=== PATIENT | female | born 1945 | race Caucasian/White ===

== ENCOUNTER → 2018-05-18 08:43 | Outpatient (REF) | payer MEDICARE, SELFPAY | LOC: NCHCN 08:43 | PROVIDERS: Visit Provider Internal Medicine | DX: R63.4 Abnormal weight loss (principal) | CPT/HCPCS: 84443 ==

== ENCOUNTER 2019-11-08 08:48 | Outpatient (REF) | payer MEDICARE, SELFPAY ==
[2019-11-08 22:08] LABS: Anion Gap 7.2 mmol/L (3-11); BUN 16 mg/dL (7-18); CO2 31.8 mmol/L (21.0-32.0); CREATININE 0.73 mg/dL (0.55-1.02); Calcium 10.1 mg/dL (8.5-10.1); Chloride 99 mmol/L (98-107); Glucose 104 mg/dL (74-106); Potassium 4.5 mmol/L (3.5-5.1); Sodium 138 mmol/L (136-145)
== END 2019-11-08 09:08 ==
LOC: NCHCN 08:48
PROVIDERS: Visit Provider Internal Medicine
DX: I10 Essential (primary) hypertension (principal)
CPT/HCPCS: 80048

== ENCOUNTER 2019-12-05 18:47 | Outpatient (REF) | payer MEDICARE, SELFPAY ==
[2019-12-05 21:54] LABS: Anion Gap 9.2 mmol/L (3-11); BUN 35 mg/dL (7-18); CO2 28.8 mmol/L (21.0-32.0); CREATININE 0.92 mg/dL (0.55-1.02); Chloride 101 mmol/L (98-107); Estimated GFR 59.84 (mL/min/1.73m2); Glucose 109 mg/dL (74-106); Sodium 139 mmol/L (136-145)
== END 2019-12-05 19:07 ==
LOC: NCHCN 18:47
PROVIDERS: Visit Provider Internal Medicine
DX: R10.9 Unspecified abdominal pain (principal); I10 Essential (primary) hypertension
CPT/HCPCS: 80048

== ENCOUNTER 2021-10-07 03:42 | Outpatient (CLI) | payer MEDICARE, SELFPAY ==
[2021-10-07 08:20] LABS: Abs Immature Grans 0.01 10^3/uL (0.0-0.06); Absolute Basophil Count 0.05 10^3/uL (0.0-0.2); Absolute Eosinophil Count 0.19 10^3/uL (0.0-0.7); Absolute Lymphocyte Count 1.07 10^3/uL (1.2-3.4); Absolute Monocyte Count 0.64 10^3/uL (0.1-0.8); Absolute Neutrophil Count 5.42 10^3/uL (1.2-6.7); Basophils % 0.7; Eosinophils % 2.6; HCT 37.3 % (36.0-46.0); HGB 11.1 g/dL (11.2-15.7); Immature Grans % 0.1; Lymphocytes % 14.5; MCH 27.5 pg (27.0-33.0); MCHC 29.8 % (32.0-36.0); MCV 92.3 fL (80-95); MPV 11.1 fL (8.0-11.0); Monocytes % 8.7; Neutrophils % 73.4; Nucleated RBC 0 %; Platelet Count 222 10^3/uL (130-400); RBC 4.04 10^6/uL (3.93-5.22); RDW 14.8 % (11.7-14.6); RDW-SD 50.8 fL; WBC 7.38 10^3/uL (4.4-10.8)
[2021-10-07 08:43] LABS: ALT 22 U/L (14-59); AST 13 U/L (15-37); Albumin 3.7 g/dL (3.4-5.0); Alkaline Phosphatase 151 U/L (46-116); Anion Gap 2.7 mmol/L (3-11); BUN 29 mg/dL (7-18); Bilirubin, Total 0.5 mg/dL (0.2-1.0); CO2 36.3 mmol/L (21.0-32.0); CREATININE 0.9 mg/dL (0.55-1.02); Calcium 10.1 mg/dL (8.5-10.1); Chloride 101 mmol/L (98-107); FREE T4 1.06 ng/dL (0.76-1.46); Glucose 110 mg/dL (74-106); Magnesium 1.9 mg/dL (1.8-2.4); Potassium 4.5 mmol/L (3.5-5.1); Sodium 140 mmol/L (136-145); TSH 3.16 uIU/mL (0.36-3.74); Total Protein 6.5 g/dL (6.4-8.2)
== END 2021-10-07 03:43 | disposition home or self-care (01) ==
LOC: LBO 03:42
PROVIDERS: PCP Internal Medicine; Visit Provider Internal Medicine Medical Oncology
DX: Z79.899 Other long term (current) drug therapy (principal); C34.32 Malignant neoplasm of lower lobe, left bronchus or lung
CPT/HCPCS: 36415; 80053; 83735; 84439; 84443; 85025

== ENCOUNTER 2021-10-28 01:37 | Outpatient (CLI) | payer MEDICARE, MEDICAID, SELFPAY ==
[2021-10-28 08:37] LABS: Abs Immature Grans 0.03 10^3/uL (0.0-0.06); Absolute Basophil Count 0.06 10^3/uL (0.0-0.2); Absolute Eosinophil Count 0.15 10^3/uL (0.0-0.7); Absolute Lymphocyte Count 0.95 10^3/uL (1.2-3.4); Absolute Neutrophil Count 6.26 10^3/uL (1.2-6.7); Basophils % 0.7; Eosinophils % 1.8; HCT 38.1 % (36.0-46.0); HGB 11.2 g/dL (11.2-15.7); Immature Grans % 0.4; Lymphocytes % 11.7; MCH 27.6 pg (27.0-33.0); MCHC 29.4 % (32.0-36.0); MCV 93.8 fL (80-95); Monocytes % 8.6; Neutrophils % 76.8; Nucleated RBC 0 %; Platelet Count 212 10^3/uL (130-400); RBC 4.06 10^6/uL (3.93-5.22); RDW 15.2 % (11.7-14.6); RDW-SD 52.3 fL; WBC 8.15 10^3/uL (4.4-10.8)
[2021-10-28 09:17] LABS: ALT 27 U/L (14-59); AST 13 U/L (15-37); Albumin 3.7 g/dL (3.4-5.0); Alkaline Phosphatase 156 U/L (46-116); Anion Gap 6.4 mmol/L (3-11); BUN 27 mg/dL (7-18); Bilirubin, Total 0.3 mg/dL (0.2-1.0); CO2 35.6 mmol/L (21.0-32.0); CREATININE 0.9 mg/dL (0.55-1.02); Calcium 9.9 mg/dL (8.5-10.1); Chloride 99 mmol/L (98-107); FREE T4 1.01 ng/dL (0.76-1.46); Glucose 122 mg/dL (74-106); Magnesium 1.7 mg/dL (1.8-2.4); Potassium 3.9 mmol/L (3.5-5.1); Sodium 141 mmol/L (136-145); Total Protein 6.8 g/dL (6.4-8.2)
== END 2021-10-28 01:38 | disposition home or self-care (01) ==
LOC: LBO 01:37
PROVIDERS: PCP Internal Medicine; Visit Provider Internal Medicine Medical Oncology
DX: Z79.899 Other long term (current) drug therapy (principal); C34.32 Malignant neoplasm of lower lobe, left bronchus or lung
CPT/HCPCS: 36415; 80053; 83735; 84439; 85025

== ENCOUNTER 2021-10-29 00:17 | Outpatient (CLI) | payer MEDICARE, MEDICAID, SELFPAY ==
[2021-10-29] MEDS: Omnipaque 350 MG/ML 100 ML BTL IJ (13:37)
[2021-10-29] MEDS: Breeza Beverage 473 ML BTL PO (13:37)
--- NOTE | 2021-10-29 14:00 | DI.CT_ITS ---
Exam(s) CT CHEST/ABD W EXAM: CT CHEST/ABD W CLINICAL HISTORY: NON-SMALL CELL LUNG CA, LIVER METS, RESTAGING, C34.32, C78.7 TECHNIQUE: Imaging Protocol: Axial computed tomography images with coronal and sagittal reformatted images were created and reviewed CONTRAST MATERIAL: Intravenous: Omnipaque 350 Contrast volume:100 mL Oral: Yes COMPARISON: CT CT CXRABDPELVIS WITH IV AND ORAL from 08/08/2021 FINDINGS: CHEST: Tracheobronchial tree: Patent where visualized. Pulmonary parenchyma: There are stable pulmonary nodules. There is a 0.8 cm pulmonary nodule in the left lingula. There is stable parenchymal scarring. No new pulmonary nodules are present. No focal consolidating infiltrates are seen. Visualized thyroid gland: Stable thyroid nodules are present. Mediastinum and Iesha: Unchanged compared to prior examinations. The esophagus is unremarkable. Pleura: There has been no change in the right pleural effusion or the adjacent rib deformities. No l eft pleural effusion is present. No pneumothorax is seen. Heart: The heart is not dilated. Coronary artery calcifications are present. No pericardial effusion . Pulmonary arteries: No pulmonary emboli are identified. Aorta: Thoracic aorta non-dilated. Atherosclerosis. Lymph nodes: No axillary adenopathy. Tubes, Catheters, and Lines: Patient has an Awjflq-H-Slww catheter. Soft tissues: Unremarkable. Bones:There is a stable appearance of the right ribs adjacent to the loculated pleural effusion. The re are bilateral healed and nonunited rib fractures. There is a new compression deformity of the T8 vertebral body. ABDOMEN: Liver: The area of decreased attenuation in the posterior segment of the right lobe of the liver is u nchanged. No new hepatic masses are seen. No measurable mass. Portal, Superior Mesenteric, and Splenic Veins: Unremarkable. Gallbladder and Biliary Tract: Status post cholecystectomy. There has been no change in the intra an d extrahepatic biliary ductal dilatation compared to the prior examination. Pancreas: Normal density, no abnormal calcifications or inflammatory process. Spleen: Normal. Adrenals: No masses seen. Kidneys: Normal size, contour and axis. No radiodense stones or obstructive uropathy. There is a stab le left renal cyst. 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 Abdominal Aorta: Abdominal portion non-dilated. Atherosclerosis. Bowel: No obstruction or bowel wall thickening. There is a large amount of stool in the colon. Peritoneal Cavity: No ascites, collection or mesenteric inflammatory response. No free air. Lymph Nodes: Within normal limits. Bones: There are old healed and nonunited rib fractures. Degenerative changes are suppressed ont in the spine. Since the prior examination there is a compression deformity of the T8 vertebral body. T here is loss of 15 percent of the height of the vertebral body anteriorly. No retropulsion is seen. There is some sclerosis of the vertebral body. Pathologic fracture cannot be excluded. Soft Tissues: Unremarkable. IMPRESSION: 1. Stable appearance of the abdomen. No evidence of new abdominal metastatic disease. 2. Stable parenchymal findings and pulmonary nodules since 08/08/2021. 3. New T8 compression fracture deformity. There is some sclerosis of the fracture and metastatic dis ease cannot be entirely excluded. An MRI examination may be obtained for further evaluation. A whol e-body bone scan may be considered to assess for other evidence of metastatic disease. RADIATION DOSE DELIVERED: 1,020.16mGy.cm Total DLP DATA REPOSITORY: All CT scans at this facility are submitted to the National Radiology Data Registry (NRDR) Dose Index Registry (DIR) with the [employer] ([employer]). RADIATION OPTIMIZATION: All CT scans at this facility use at least one of these dose optimization te chniques: automated exposure control; mA and/or kV adjustment per patient size (includes targeted exa ms where dose is matched to clinical indication); or iterative reconstruction.
== END 2021-10-29 00:37 ==
PROVIDERS: PCP Internal Medicine; Visit Provider Internal Medicine Medical Oncology
DX: C34.32 Malignant neoplasm of lower lobe, left bronchus or lung (principal); C78.7 Secondary malignant neoplasm of liver and intrahepatic bile duct; J98.4 Other disorders of lung; E04.2 Nontoxic multinodular goiter; J90 Pleural effusion, not elsewhere classified; Z90.49 Acquired absence of other specified parts of digestive tract; N28.1 Cyst of kidney, acquired; M48.54XA Collapsed vertebra, not elsewhere classified, thoracic region, initial encounter for fracture; R91.1 Solitary pulmonary nodule
CPT/HCPCS: 71260; 74160; J3490

== ENCOUNTER 2021-11-20 13:09 | Outpatient (RCR) | payer MEDICARE, MEDICAID, SELFPAY ==
[2021-11-20] MEDS: Normal Saline Flush 10 ML SYR IVP (13:22)
[2021-11-20 13:48] LABS: Abs Immature Grans 0.02 10^3/uL (0.0-0.06); Absolute Basophil Count 0.04 10^3/uL (0.0-0.2); Absolute Eosinophil Count 0.19 10^3/uL (0.0-0.7); Absolute Lymphocyte Count 0.85 10^3/uL (1.2-3.4); Absolute Monocyte Count 0.63 10^3/uL (0.1-0.8); Absolute Neutrophil Count 5.66 10^3/uL (1.2-6.7); Basophils % 0.5; Eosinophils % 2.6; HCT 33.1 % (36.0-46.0); Immature Grans % 0.3; Lymphocytes % 11.5; MCH 28.3 pg (27.0-33.0); MCHC 30.2 % (32.0-36.0); MCV 93.8 fL (80-95); MPV 11.7 fL (8.0-11.0); Monocytes % 8.5; Neutrophils % 76.6; Nucleated RBC 0 %; Platelet Count 233 10^3/uL (130-400); RBC 3.53 10^6/uL (3.93-5.22); RDW 15.8 % (11.7-14.6); RDW-SD 54.8 fL; WBC 7.39 10^3/uL (4.4-10.8)
[2021-11-20 14:11] LABS: ALT 17 U/L (14-59); AST 13 U/L (15-37); Albumin 3.5 g/dL (3.4-5.0); Alkaline Phosphatase 121 U/L (46-116); Anion Gap 2.6 mmol/L (3-11); BUN 24 mg/dL (7-18); Bilirubin, Total 0.3 mg/dL (0.2-1.0); CO2 36.4 mmol/L (21.0-32.0); CREATININE 0.8 mg/dL (0.55-1.02); Calcium 9.8 mg/dL (8.5-10.1); Chloride 101 mmol/L (98-107); FREE T4 0.92 ng/dL (0.76-1.46); Glucose 121 mg/dL (74-106); Potassium 4.3 mmol/L (3.5-5.1); Sodium 140 mmol/L (136-145); TSH 3.08 uIU/mL (0.36-3.74); Total Protein 6.3 g/dL (6.4-8.2)
== END 2021-11-25 23:59 | disposition home or self-care (01) ==
LOC: INF 13:09
PROVIDERS: Internal Medicine Medical Oncology; PCP Internal Medicine; Visit Provider Nurse Practitioner Adult Health
DX: C34.32 Malignant neoplasm of lower lobe, left bronchus or lung (principal); Z79.899 Other long term (current) drug therapy; Z45.2 Encounter for adjustment and management of vascular access device
CPT/HCPCS: 36591; 80053; 83735; 84439; 84443; 85025

== ENCOUNTER 2021-12-16 02:33 | Outpatient (RCR) | payer MEDICARE, MEDICAID, SELFPAY ==
[2021-12-16] MEDS: Normal Saline Flush 10 ML SYR IVP (13:36)
[2021-12-16 13:49] LABS: Abs Immature Grans 0.03 10^3/uL (0.0-0.06); Absolute Basophil Count 0.06 10^3/uL (0.0-0.2); Absolute Eosinophil Count 0.07 10^3/uL (0.0-0.7); Absolute Lymphocyte Count 0.69 10^3/uL (1.2-3.4); Absolute Monocyte Count 0.62 10^3/uL (0.1-0.8); Absolute Neutrophil Count 7.55 10^3/uL (1.2-6.7); Basophils % 0.7; Eosinophils % 0.8; HCT 33.7 % (36.0-46.0); HGB 10.2 g/dL (11.2-15.7); Immature Grans % 0.3; Lymphocytes % 7.6; MCH 28.7 pg (27.0-33.0); MCHC 30.3 % (32.0-36.0); MCV 94.9 fL (80-95); MPV 11.9 fL (8.0-11.0); Monocytes % 6.9; Neutrophils % 83.7; Nucleated RBC 0 %; Platelet Count 246 10^3/uL (130-400); RBC 3.55 10^6/uL (3.93-5.22); RDW 15.4 % (11.7-14.6); RDW-SD 53.7 fL; WBC 9.02 10^3/uL (4.4-10.8)
[2021-12-16 14:21] LABS: ALT 20 U/L (14-59); AST 17 U/L (15-37); Albumin 3.9 g/dL (3.4-5.0); Alkaline Phosphatase 100 U/L (46-116); Anion Gap 3.1 mmol/L (3-11); BUN 37 mg/dL (7-18); Bilirubin, Total 0.3 mg/dL (0.2-1.0); CO2 35.9 mmol/L (21.0-32.0); CREATININE 1.2 mg/dL (0.55-1.02); Calcium 9.6 mg/dL (8.5-10.1); Chloride 98 mmol/L (98-107); FREE T4 1.05 ng/dL (0.76-1.46); Glucose 103 mg/dL (74-106); Magnesium 1.7 mg/dL (1.8-2.4); Potassium 4.2 mmol/L (3.5-5.1); Sodium 137 mmol/L (136-145); TSH 1.57 uIU/mL (0.36-3.74); Total Protein 6.8 g/dL (6.4-8.2)
== END 2021-12-26 23:59 | disposition home or self-care (01) ==
LOC: INF 02:33
PROVIDERS: Internal Medicine Medical Oncology; PCP Internal Medicine; Visit Provider Nurse Practitioner Adult Health
DX: Z45.2 Encounter for adjustment and management of vascular access device (principal); C34.32 Malignant neoplasm of lower lobe, left bronchus or lung; Z79.899 Other long term (current) drug therapy
CPT/HCPCS: 36591; 80053; 83735; 84439; 84443; 85025

== ENCOUNTER 2022-01-06 10:11 | Emergency (ER) | payer MEDICARE, MEDICAID, SELFPAY ==
[2022-01-06] VITALS (56 sets, daily range): BP systolic 113–185; BP diastolic 57–145; PULSE 67–89; RESP 12–24; TEMP 36.7; O2SAT 91–99
--- NOTE | 2022-01-06 10:00 | RT.EKG_ITS ---
APPROVED REPORT Exam: Resting ECG Reason for Exam: chest pain Patient Location: E HR:77 bpm ECG Measurements Heart Rate 77 AXIS TN 65 P 0 QRSd 84 QRS 58 QT 384 T 78 QTc 436 Conclusion Sinus rhythm...normal P axis, V-rate 60- 99 Nonspecific T abnormalities, lateral leads...T <-0.10mV, I aVL V5 V6 no STEMI, non-diagnostic EKG I have reviewed and interpreted ECG and agree with software generated interpretation.
[2022-01-06] MEDS: Normal Saline-STERILE FIELD 0.9% 10 ML SYR (10:50)
[2022-01-06 10:57] LABS: Abs Immature Grans 0.02 10^3/uL (0.0-0.06); Absolute Basophil Count 0.08 10^3/uL (0.0-0.2); Absolute Eosinophil Count 0.26 10^3/uL (0.0-0.7); Absolute Lymphocyte Count 0.79 10^3/uL (1.2-3.4); Absolute Monocyte Count 0.64 10^3/uL (0.1-0.8); Absolute Neutrophil Count 7.09 10^3/uL (1.2-6.7); Basophils % 0.9; Eosinophils % 2.9; HCT 34.3 % (36.0-46.0); HGB 10.3 g/dL (11.2-15.7); Immature Grans % 0.2; Lymphocytes % 8.9; MCH 28.6 pg (27.0-33.0); MCV 95.3 fL (80-95); MPV 11.1 fL (8.0-11.0); Monocytes % 7.2; Neutrophils % 79.9; Nucleated RBC 0 %; Platelet Count 220 10^3/uL (130-400); RDW-SD 52.5 fL; WBC 8.88 10^3/uL (4.4-10.8)
[2022-01-06] MEDS: fentaNYL 100 MCG/2 ML VIAL 50 MCG IVP (11:02)
--- NOTE | 2022-01-06 11:15 | DI.CT_ITS ---
Exam(s) CT CHEST PE CTA EXAM: CT CHEST PE CTA CLINICAL HISTORY: Chest pain, Lung CA Hx. TECHNIQUE: Imaging Protocol: Axial CT angiography was performed with multi-slice acquisition and mu lti-planar reconstructions as well as axial, coronal and sagittal MIP reconstructions. CONTRAST MATERIAL: Intravenous: Omnipaque 350 Contrast volume:structured data in ml COMPARISON: CT CT CHEST/ABD W from 10/29/2021 FINDINGS: Pulmonary Arteries: Prominent. No evidence of filling defect to suggest pulmonary emboli. Tracheobronchial tree: Patent where visualized. Mediastinum and Iesha: No dominant adenopathy or fluid collection. Pulmonary parenchyma: Suture material right lung base. Stable areas of scarring and/or nodules in th e right upper lobe. Stable nodule lingula. Stable areas of scarring lingula and left lower lobe. Pleura: Stable loculated right lower lobe collection. Heart: The heart is not dilated. Uvch-oe-yckuaigd coronary artery calcifications are seen. Aorta: Thoracic aorta non-dilated. No aneurysm. No dissection. Two moderate atherosclerotic change s. Upper abdomen: Unremarkable. Bones: Bilateral rib fractures. Stable T8 compression fracture. Tubes, Catheters, and Lines: Port overlying left pectoral muscle. IMPRESSION: No evidence of pulmonary embolism. Stable appearance of right pleural collection and areas of nodula rity and scarring. RADIATION DOSE DELIVERED: 291.67mGy.cm Total DLP DATA REPOSITORY: All CT scans at this facility are submitted to the National Radiology Data Registry (NRDR) Dose Index Registry (DIR) with the [employer] ([employer]). RADIATION OPTIMIZATION: All CT scans at this facility use at least one of these dose optimization te chniques: automated exposure control; mA and/or kV adjustment per patient size (includes targeted exa ms where dose is matched to clinical indication); or iterative reconstruction.
[2022-01-06 11:17] LABS: ALT 16 U/L (14-59); AST 11 U/L (15-37); Albumin 3.6 g/dL (3.4-5.0); Alkaline Phosphatase 119 U/L (46-116); BUN 24 mg/dL (7-18); Bilirubin, Total 0.4 mg/dL (0.2-1.0); CREATININE 0.8 mg/dL (0.55-1.02); Calcium 9.8 mg/dL (8.5-10.1); Chloride 100 mmol/L (98-107); Glucose 142 mg/dL (74-106); Magnesium 2.1 mg/dL (1.8-2.4); NT-proBNP 856 pg/mL (<300); Potassium 4.1 mmol/L (3.5-5.1); Sodium 140 mmol/L (136-145); Total Protein 6.4 g/dL (6.4-8.2); Troponin I < 50 ng/L (<or=60)
[2022-01-06] MEDS: Omnipaque 350 MG/ML 50 ML BTL IJ ×2 (12:29→12:30)
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
[2022-01-06 13:43] LABS: Troponin I < 50 ng/L (<or=60)
[2022-01-06] MEDS: Heparin 500 UNITS/5 ML SYRINGE (16:00)
--- NOTE | 2022-01-06 16:45 | NUR.NOTE ---
REFERRAL TO PCP NEEDED FR EDF/U WITHIN 1 WEEK. NOTED AND FAXED
--- NOTE | 2022-01-06 16:53 | ED.PROG_ITS ---
Date of service: 01/06/22 Time of Service: 16:53 Medical Decision Making 1653: Spoke with Dr. Osuna regarding patient case and details. I did discuss the elevated BNP and the cardiac work-up which was negative for MD. She recommends an ABG which was ordered here in the department. I did recommend PCP follow-up if possible for the next 3 to 5 days. Discharge Plan Disposition Patient Disposition: HOME Condition: Improving Discharge Details Clinical Impression: Chest pain Primary Care Provider: Arianna Nunez ED Provider: Kameron Rose Home Meds and New Rx's Prescriptions: Continued Keytruda 25 mg/mL solution 200 mg IV Q3W Qty: 4 0RF Rx Instructions: administer over 30 mins (DME) Aerochamber MV Spacer See Rx Instructions .ROUTE .MEDSUPPLY Qty: 1 0RF Rx Instructions: As directed ipratropium-albuterol 0.5 mg-3 mg(2.5 mg base)/3 mL solution for nebulization 3 ml inhalation Q6H PRN (Reason: wheezing) Qty: 90 5RF morphine concentrate 100 mg/5 mL (20 mg/mL) solution 10 mg PO Q1H PRN MDD 60 mg Qty: 30 0RF Rx Instructions: 0.25-0.5 ml for acute breathlessness not for pain Mucinex 1,200 mg tablet extended release 12hr 1,200 mg PO BID Qty: 60 0RF Pulmicort Flexhaler 90 mcg/actuation aerosol powdr breath activated 2 inh inhalation BID 0RF acetaminophen 325 mg tablet 650 mg PO Q4H PRN0RF mupirocin 2 % ointment 1 applic topical BID 0RF polyethylene glycol 3350 17 gram/dose powder 17 g PO DAILY 0RF Rx Instructions: One capful of powder mixed in 8 ox of liquid atorvastatin 20 mg tablet 20 mg PO QHS 0RF All Day Allergy (cetirizine) 10 mg capsule 10 mg PO DAILY PRN0RF famotidine 20 mg tablet 20 mg PO BID 0RF morphine 30 mg tablet extended release 30 mg PO Q12H 0RF spironolactone 25 mg tablet 25 mg PO DAILY 0RF morphine 15 mg tablet extended release 15 mg PO QAM 0RF PreserVision AREDS-2 250-90-40-1 mg capsule 1 tab PO DAILY 0RF albuterol sulfate 90 mcg/actuation HFA aerosol inhaler 2 puff inhalation TID 0RF budesonide 0.5 mg/2 mL suspension for nebulization 0.5 mg inhalation DAILY 0RF Refresh Classic (PF) 1.4-0.6 % dropperette 1 drp ophthalmic (eye) QHS 0RF duloxetine 60 mg capsule,delayed release(DR/EC) 60 mg PO DAILY 0RF naloxone [Narcan] 4 mg/actuation spray,non-aerosol 4 mg intranasal Q2M 0RF Rx Instructions: spray 1 dose into ONE nostril; alternate nostrils w each dose until help arrives prednisone 2.5 mg tablet 2.5 mg PO DAILY Qty: 90 1RF (DME) nebulizers [facility] [place] See Rx Instructions .ROUTE .MEDSUPPLY Qty: 1 0RF Rx Instructions: As directed, COPD, neb supplies 1 device via nebulizer as directed use nebulizer as needed for shortness of breath. (DME) walker [facility] [place] See Rx Instructions .ROUTE .MEDSUPPLY Qty: 1 0RF Rx Instructions: As directed losartan 50 mg tablet 50 mg PO DAILY 0RF torsemide 20 mg tablet 40 mg PO DAILY 0RF omeprazole 40 mg capsule,delayed release(DR/EC) 40 mg PO BID 0RF Spiriva with HandiHaler 18 mcg capsule, w/inhalation device 1 cap inhalation DAILY 0RF Rx Instructions: puncture 1 cap using device; one dose = 2 inhalations ondansetron 8 mg tablet,disintegrating 8 mg PO Q8H PRN (Reason: nausea and vomiting) 0RF albuterol sulfate 1.25 mg/3 mL solution for nebulization 2.5 mg inhalation TID Qty: 90 0RF Rx Instructions: Hx: COPD clotrimazole 1 % Cream 1 applic VAGINAL BID 0RF Pulmicort Flexhaler 90 mcg/actuation Aerosol Powdr Breath Activated 2 inh INHALATION BID 0RF Discharge Instructions Instructions: Chest Pain (ED) Additional Instructions: Today's were that did not show any obvious signs of heart attack or pulmonary in volvement that is new. It is important to take your normally prescribed medications and follow-up with your primary care provider preferably within the next 3 days for reassessment. If you have any new or significant worsening of symptoms, change, or persistent pain feel free to return to the emergency department for reassessment and further treatment as needed. Referrals: Arianna Nunez MD [Primary Care Provider] - 3 days (Please call the office for arrangement of follow-up appoint with your primary care provider and reassessment of your chest pain within the next 3 days.) Discharge Data Discharge Date/Time-TO BE ENTERED AT DEPARTURE: 01/06/22 17:42
[2022-01-06 17:01] LABS: BE 14 mmol/L (-2-3); HCO3 39 mmol/L (22-26); pH 7.38 (7.35-7.45); pO2 81 mmHg (80-105); sO2 94 % (95-98); tCO2 37 mmol/L (23-27)
[2022-01-06 17:04] LABS: pCO2 66 mmHg (35-45)
[2022-01-06 17:05] LABS: FIO2L 2 L; Site Right Radial
== END 2022-01-06 17:42 | disposition home or self-care (01) ==
PROVIDERS: Registered Nurse Emergency; Emergency Provider Nurse Practitioner Family; PCP Family Medicine
DX: R07.9 Chest pain, unspecified (principal); C34.90 Malignant neoplasm of unspecified part of unspecified bronchus or lung; R06.00 Dyspnea, unspecified; F17.210 Nicotine dependence, cigarettes, uncomplicated
CPT/HCPCS: 71275; 80053; 82805; 93005; 96374; 99285; 36600; 83735; 83880; 84484; 85025; 93010; 99284; J3010; Q9967

== ENCOUNTER 2022-01-10 16:56 | Outpatient (REF) | payer MEDICARE, MEDICAID, SELFPAY ==
[2022-01-10 21:29] LABS: Calculated LDL 58 mg/dL (<100); Cholesterol 136 mg/dL (<200); Ferritin 25 ng/mL (8-252); Folate 17.6 ng/mL (8.6-20.0); HDL Cholesterol 62 mg/dL (40-60); Triglyceride 81 mg/dL (<150); Vitamin B12 246 pg/mL (193-986)
[2022-01-10 21:54] LABS: Iron 25 ug/dL (50-170); Total Iron Binding Capacity 319 ug/dL (250-450); Transferrin Sat 8 % (15-50)
[2022-01-13 10:12] LABS: Hepatitis C Ab w Rflx HCV PCR Negative (Negative)
== END 2022-01-10 16:57 | disposition home or self-care (01) ==
LOC: NCHCN 16:56
PROVIDERS: PCP Family Medicine; Visit Provider Family Medicine
DX: Z13.220 Encounter for screening for lipoid disorders (principal); D64.9 Anemia, unspecified
CPT/HCPCS: 80061; 80186; 86803; 82607; 82728; 82746; 83540; 83550; 87480; 87510; 87660

== ENCOUNTER 2022-01-13 02:24 | Outpatient (RCR) | payer MEDICARE, MEDICAID, SELFPAY ==
[2022-01-13 09:01] LABS: Abs Immature Grans 0.02 10^3/uL (0.0-0.06); Absolute Basophil Count 0.05 10^3/uL (0.0-0.2); Absolute Eosinophil Count 0.24 10^3/uL (0.0-0.7); Absolute Lymphocyte Count 0.82 10^3/uL (1.2-3.4); Absolute Monocyte Count 0.64 10^3/uL (0.1-0.8); Absolute Neutrophil Count 6.98 10^3/uL (1.2-6.7); Basophils % 0.6; Eosinophils % 2.7; HCT 35.8 % (36.0-46.0); HGB 10.6 g/dL (11.2-15.7); Immature Grans % 0.2; Lymphocytes % 9.4; MCH 28.1 pg (27.0-33.0); MCHC 29.6 % (32.0-36.0); MPV 11.1 fL (8.0-11.0); Monocytes % 7.3; Neutrophils % 79.8; Platelet Count 269 10^3/uL (130-400); RBC 3.77 10^6/uL (3.93-5.22); RDW 15.1 % (11.7-14.6); WBC 8.75 10^3/uL (4.4-10.8)
[2022-01-13] MEDS: Normal Saline Flush 10 ML SYR IVP (09:03)
[2022-01-13 09:23] LABS: ALT 19 U/L (14-59); AST 11 U/L (15-37); Albumin 3.7 g/dL (3.4-5.0); Alkaline Phosphatase 131 U/L (46-116); Anion Gap 0.6 mmol/L (3-11); BUN 27 mg/dL (7-18); Bilirubin, Total 0.4 mg/dL (0.2-1.0); CO2 35.4 mmol/L (21.0-32.0); Calcium 9.7 mg/dL (8.5-10.1); Chloride 100 mmol/L (98-107); Estimated GFR 54.05 (mL/min/1.73m2); Glucose 153 mg/dL (74-106); Magnesium 2.1 mg/dL (1.8-2.4); Potassium 4.7 mmol/L (3.5-5.1); Sodium 136 mmol/L (136-145); TSH 2.66 uIU/mL (0.36-3.74); Total Protein 6.7 g/dL (6.4-8.2)
[2022-01-13 12:58] LABS: Hemoglobin A1C 5.9 % (<5.7)
== END 2022-01-25 23:59 | disposition home or self-care (01) ==
LOC: INF 02:24
PROVIDERS: Internal Medicine Medical Oncology; PCP Family Medicine; Visit Provider Nurse Practitioner Adult Health
DX: C34.32 Malignant neoplasm of lower lobe, left bronchus or lung (principal); R73.9 Hyperglycemia, unspecified; Z79.899 Other long term (current) drug therapy; Z45.2 Encounter for adjustment and management of vascular access device
CPT/HCPCS: 36591; 80053; 83036; 83735; 84439; 84443; 85025

== ENCOUNTER 2022-01-28 01:15 | Outpatient (CLI) | payer MEDICARE, MEDICAID, SELFPAY ==
--- NOTE | 2022-01-28 13:05 | DI.RAD_ITS ---
Exam(s) XR SHOULDER RT COMPLETE 2+V EXAM: XR SHOULDER RT COMPLETE 2+V CLINICAL HISTORY: RT SHOULDER JT PAIN, M25.511; MENOPAUSAL, Z78.0. TECHNIQUE: 2D digital imaging was performed. COMPARISON: No exams were available for comparison FINDINGS: Five views There is no evidence of fracture or dislocation of glenohumeral joint. No abnormal soft tissue calci fications in the non diminished subacromial space. There are moderate degenerative changes in the AC joint. Bone density is age-appropriate. No osseous lesions. Port-A-Cath noted. IMPRESSION: DATA REPOSITORY: RADIATION DOSE DELIVERED:
--- NOTE | 2022-01-28 13:05 | DI.RAD_ITS ---
Exam(s) XR SHOULDER LT COMPLETE 2+V EXAM: XR SHOULDER LT COMPLETE 2+V CLINICAL HISTORY: LT SHOULDER JT PAIN, M25.512, EVEN MORE S/P RECENT FALL. TECHNIQUE: 2D digital imaging was performed. COMPARISON: CR XR SHOULDER RT COMPLETE 2+V from 01/28/2022 FINDINGS: Five views There is no evidence of fracture or dislocation or abnormal soft tissue calcifications in the subacro mial space. The subacromial space is not diminished in height. There are mild degenerative changes in the AC joint. Mild degenerative changes in the glenohumeral joint. No osseous lesions evident. Port-A-Cath is noted. IMPRESSION: DATA REPOSITORY: RADIATION DOSE DELIVERED:
== END 2022-01-28 01:35 ==
PROVIDERS: PCP Family Medicine; Visit Provider Family Medicine
DX: M25.511 Pain in right shoulder (principal); M25.512 Pain in left shoulder; M19.011 Primary osteoarthritis, right shoulder; M19.012 Primary osteoarthritis, left shoulder
CPT/HCPCS: 73030

== ENCOUNTER 2022-02-03 00:57 | Outpatient (RCR) | payer MEDICARE, MEDICAID, SELFPAY ==
[2022-02-03] MEDS: Normal Saline Flush 10 ML SYR IVP (11:56)
[2022-02-03 12:06] LABS: Abs Immature Grans 0.01 10^3/uL (0.0-0.06); Absolute Basophil Count 0.07 10^3/uL (0.0-0.2); Absolute Eosinophil Count 0.14 10^3/uL (0.0-0.7); Absolute Lymphocyte Count 0.79 10^3/uL (1.2-3.4); Absolute Monocyte Count 0.56 10^3/uL (0.1-0.8); Absolute Neutrophil Count 5.51 10^3/uL (1.2-6.7); HCT 36.1 % (36.0-46.0); HGB 10.8 g/dL (11.2-15.7); Immature Grans % 0.1; Lymphocytes % 11.2; MCH 28.6 pg (27.0-33.0); MCHC 29.9 % (32.0-36.0); MCV 96 fL (80-95); MPV 11.6 fL (8.0-11.0); Monocytes % 7.9; Neutrophils % 77.8; Platelet Count 230 10^3/uL (130-400); RBC 3.77 10^6/uL (3.93-5.22); RDW 14.4 % (11.7-14.6); RDW-SD 50.4 fL; WBC 7.08 10^3/uL (4.4-10.8)
[2022-02-03 12:27] LABS: ALT 21 U/L (14-59); AST 14 U/L (15-37); Albumin 3.7 g/dL (3.4-5.0); Alkaline Phosphatase 126 U/L (46-116); Anion Gap 2.3 mmol/L (3-11); BUN 23 mg/dL (7-18); Bilirubin, Total 0.3 mg/dL (0.2-1.0); CO2 37.7 mmol/L (21.0-32.0); Calcium 9.5 mg/dL (8.5-10.1); Chloride 98 mmol/L (98-107); Estimated GFR 54.05 (mL/min/1.73m2); FREE T4 1.01 ng/dL (0.76-1.46); Glucose 148 mg/dL (74-106); Magnesium 1.7 mg/dL (1.8-2.4); Sodium 138 mmol/L (136-145); TSH 1.42 uIU/mL (0.36-3.74); Total Protein 6.5 g/dL (6.4-8.2)
== END 2022-02-25 23:59 | disposition home or self-care (01) ==
LOC: INF 00:57
PROVIDERS: Internal Medicine Medical Oncology; PCP Family Medicine; Visit Provider Nurse Practitioner Adult Health
DX: C34.32 Malignant neoplasm of lower lobe, left bronchus or lung (principal); Z79.899 Other long term (current) drug therapy; Z45.2 Encounter for adjustment and management of vascular access device
CPT/HCPCS: 36591; 80053; 83735; 84439; 84443; 85025

== ENCOUNTER 2022-02-12 16:21 | Outpatient (REF) | payer MEDICARE, MEDICAID, SELFPAY ==
[2022-02-14 11:36] LABS: COVID-19 RT-PCR UVMMC Result Negative (Negative)
== END 2022-02-12 16:22 | disposition home or self-care (01) ==
LOC: LBN 16:21
PROVIDERS: PCP Family Medicine; Visit Provider Family Medicine
DX: Z28.310 Unvaccinated for COVID-19 (principal); Z20.822 Contact with and (suspected) exposure to COVID-19
CPT/HCPCS: U0003; U0005

== ENCOUNTER → 2022-02-21 01:05 | Outpatient (CLI) | payer MEDICARE, MEDICAID, SELFPAY ==
--- OUTSIDE RECORDS SUMMARY | 2022-02-21 01:07 | XMS_ITS | Encounter Summary ---
:1945 Author Organization [facility] Address [address] [place] [address] Care Team Providers Name Role Phone Soila Faustin Primary Care Provider Encounter Details Date Type Department Care Team Description 09/05/2019 Lab Requisition [facility] Unknown, Provider, Pathology & Laboratory [facility] [address] [place] [address] [place], [place] [address] Social History Tobacco Use Types Packs/Day Years Used Date Current Every Day Smoker Cigarettes 0.5 50 Smokeless Tobacco: Never Used Alcohol Use Standard Drinks/Week Comments No 0 (1 standard drink = 0.6 oz pure alcoho l) Sex Assigned at Date Recorded Not on file documented as of this encounter Plan of Treatment Not on filedocumented as of this encounter Procedures Procedure Name Priority Date/Time Associated Diagnosis Comme nts VITAMIN B12 Routine 09/05/2019 8:30 EST Results for this procedure are i n the results section . documented in this encounter Results VITAMIN B12 (09/05/2019 8:30 EST) Pathologist Sig nature Vitamin B12 556 211 - 911 pg/mL [facility] Specimen Blood - Venous blood (substance) Performing Organization Address City/State/ZIP Code Phon e Number [facility] [address] [place] [address] SERVICES documented in this encounter Visit Diagnoses Not on filedocumented in this encounter Care Teams Aviation Technician Aircraft Relationship Specialty Start Date End Date Soila Faustin PCP - General Internal Medicine - Primary 02/06/20 [address] [place] [address] documented as of this encounter
--- OUTSIDE RECORDS SUMMARY | 2022-02-21 01:07 | XMS_ITS | Encounter Summary ---
:1945 Author Organization [facility] Address [address] [place] [address] Care Team Providers Name Role Phone Soila Faustin Primary Care Provider Reason for Visit Reason Onset Date Comments Other 01/29/2021 appt type question Encounter Details Date Type Department Care Team Description 01/29/2021 Telephone [facility] - Hardeep Bella Ot her (appt type [facility] Adult Hematology & MD question) Oncology [address] [facility], [address] [place] [address]., [facility] [address] [place] [address] [address] [place] [address] Social History Tobacco Use Types Packs/Day Years Used Date Current Every Day Smoker Cigarettes 0.5 50 Smokeless Tobacco: Never Used Alcohol Use Standard Drinks/Week Comments No 0 (1 standard drink = 0.6 oz pure alcoho l) Sex Assigned at Date Recorded Not on file documented as of this encounter Miscellaneous Notes Telephone Encounter - Jay Bryan - 01/29/2021 1020 EDT Appt type changed to tele med. Pt notified. Mailed pt copy of PET scan instructions and appt card for Dr Bella. elephone Encounter - Maura Dorantes RN - 01/29/2021 0914 EDT JAY - Please change appt. To telemed. Thanks. elephone Encounter - Maura Dorantes RN - 01/29/[address] BELLA - Please advise. elephone Encounter - Jay Bryan - 01/29/2021 0940 EDT Pt has a PET scan appt scheduled for 02/05/21 and a f/u appt with Dr Bella on 02/11/31 4:30pm. Pt has transportation issues and wanted to know if the f/u could be a tele med appt. documented in this encounter Plan of Treatment Not on filedocumented as of this encounter Visit Diagnoses Not on filedocumented in this encounter Care Teams Manager Winter Relationship Specialty Start Date End Date Soila Faustin PCP - General Internal Medicine - Primary 02/06/20 [address] [place] [address] documented as of this encounter
--- OUTSIDE RECORDS SUMMARY | 2022-02-21 01:07 | XMS_ITS | Encounter Summary ---
:1945 Author Organization [facility] Address [address] [place] [address] Care Team Providers Name Role Phone Soila Faustin Primary Care Provider Reason for Visit Reason Onset Date Comments Other 02/26/2021 treatments Encounter Details Date Type Department Care Team Description 02/26/[address] [facility] Hardeep Kelley MD Other (treatments) Adult Hematology & 130 [facility], Oncology [address] [facility] [address] [place] [address] [place], [place] [phone] (Wo rk) Social History Tobacco Use Types Packs/Day Years Used Date Current Every Day Smoker Cigarettes 0.5 50 Smokeless Tobacco: Never Used Alcohol Use Standard Drinks/Week Comments No 0 (1 standard drink = 0.6 oz pure alcoho l) Sex Assigned at Date Recorded Not on file documented as of this encounter Miscellaneous Notes Telephone Encounter - Maura Dorantes RN - 02/26/2021 1505 EDT 02/26/21 15:05 Called and spoke with Orin Schreiber. She will contact pt. Directly regarding scheduling. Telephone Encounter - Maura Dorantes RN - 02/26/[address] HEATON - Please see note below. Ref. 02/21 TE. elephone Encounter - America Diane - 02/26/2021 1008 EDT Patient would like to speak with ET about her treatments. At this point she has not been schedule for treatment and does not understand why. Please give her a call. Thanks. documented in this encounter Plan of Treatment Not on filedocumented as of this encounter Visit Diagnoses Not on filedocumented in this encounter Care Teams Fire Prevention Chief Relationship Specialty Start Date End Date Soila Faustin PCP - General Internal Medicine - Primary 02/06/20 [address] [facility] [place] [address] documented as of this encounter
--- OUTSIDE RECORDS SUMMARY | 2022-02-21 01:07 | XMS_ITS | Encounter Summary ---
:1945 Author Organization [facility] Address [address] [place] [address] Care Team Providers Name Role Phone Unavailable Primary Care Provider Unavailable Encounter Details Date Type Department Care Team Description 01/30/2020 Abstract [facility] Delta Caba MD Integrative [facility] - [address] [place] [address] [phone] Social History Tobacco Use Types Packs/Day Years Used Date Current Every Day Smoker Cigarettes 0.5 50 Smokeless Tobacco: Never Used Alcohol Use Standard Drinks/Week Comments No 0 (1 standard drink = 0.6 oz pure alcoho l) Sex Assigned at Date Recorded Not on file documented as of this encounter Progress Notes Negrita Billings - 01/30/2020 1553 EDT Abstraction not needed, this was already done on 01/27/2020, colonoscopy added to surgical history documented in this encounter Plan of Treatment Not on filedocumented as of this encounter Visit Diagnoses Not on filedocumented in this encounter
--- OUTSIDE RECORDS SUMMARY | 2022-02-21 01:07 | XMS_ITS | Encounter Summary ---
:1945 Author Organization [facility] Address [address] [place] [address] Care Team Providers Name Role Phone Soila Faustin Primary Care Provider Encounter Details Date Type Department Care Team Description 02/13/2022 Lab Requisition [facility] Outr Resulting Lab, Pathology & Laboratory Provider [facility] [address] [place] [address] Social History Tobacco Use Types Packs/Day Years [...] Name Priority Date/Time Associated Diagnosis Comme nts COVID-19 TEST [facility] Today 02/12/2022 14:45 LAB PCR EDT COVID-19 TESTING Routine 02/12/2022 14:45 Results for this EDT procedure are i n the results section. documented in this encounter Results COVID-19 TEST [facility] PCR (02/12/2022 14:45 EDT) Specimen Swab Performing Organization Address City/State/ZIP Code Phon e Number [facility] [address] [place] [address] SERVICES COVID-19 TESTING (02/12/2022 14:45 EDT) COVID-19 rt-PCR Negative Negative [facility] MED[facility] Result Comment: [facility] This test has not been FDA c leared or approved. This test has been authorized by FDA under an EUA for use by authorized laboratories. This test has been authorized only for detection of nucleic acid fro SERVICES m 2019-nCoV, not for any oth er viruses or pathogens. This test is only authorized for the duration of the declaration that circumstances exist justifying the authorization of emergency use of in vitro d iagnostic tests for detectio n and/or diagnosis of 2019-nCoV under section 564(b)(1) of Act, 21 U.S.C ?? 360bbb-3(b) (1), unless the authorization is terminated or revoked sooner. Negative results do not prec lude 2019-nCoV infection and should not be used as the sole basis for treatment or other patient management decisions. Negative results must be combined with clinical observa tions, patient history, and epidemiological informatio n. Testing was performed using the tim SARS-CoV-2 assay ([employer] on the Tim 6800 System Performing Lab Tim [address] [facility] Lab [facility] SERVICES Specimen Swab Performing Organization Address City/State/ZIP Code Phon e Number [facility] [address] [place] [address] SERVICES documented in this encounter Visit Diagnoses Not on filedocumented in this encounter Care Teams Back Gray Cloth Washer Relationship Specialty Start Date End Date Soila Faustin PCP - General Internal Medicine - Primary 02/06/20 [address] [place] [address] documented as of this encounter
--- OUTSIDE RECORDS SUMMARY | 2022-02-21 01:07 | XMS_ITS | Encounter Summary ---
:1945 Author Organization [facility] Address [address] [place] [address] Care Team Providers Name Role Phone Unavailable Primary Care Provider Unavailable Reason for Visit Reason Onset Date Comments Other 01/26/2020 Covid 19 call center Encounter Details Date Type Department Care Team Description 01/26/2020 Telephone [facility] - Felisa Zapata, [facility] er (Covid 19 call [facility] Family Medicine - RN ana glasgow) [place] [address], [address] [place], [place] [id number] Social History Tobacco Use Types Packs/Day Years Used Date Current Every Day Smoker Cigarettes 0.5 50 Smokeless Tobacco: Never Used Alcohol Use Standard Drinks/Week Comments No 0 (1 standard drink = 0.6 oz pure alcoho l) Sex Assigned at Date Recorded Not on file documented as of this encounter Miscellaneous Notes Telephone Encounter - Yuliya Zapatah - 01/26/2020 1347 EDT This patient is calling the [facility] COVID-19 information center with concern for COVID-19. The patient has had achiness and fever for > 10 days. Fever at oncology today 100.4 COVID-19 testing is indicated according to current [facility] algorithm. The patient has been previously tested for Covid-19. 01/16/2020 negative test results. (if yes - list date of testing) Patient is not a health care worker. Patient is immunocompromised. 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 (If patient is, home health will facilitate testing once ordered). Pt lives in [facility] is closer for testing. Per Nora La she should speak with PCP to get assistance for testing at [facility]. Feels like sheshould not wait to be re-tested. Patient notified. Verbalized understanding of instructions. documented in this encounter Plan of Treatment Not on filedocumented as of this encounter Visit Diagnoses Not on filedocumented in this encounter
--- OUTSIDE RECORDS SUMMARY | 2022-02-21 01:07 | XMS_ITS | Encounter Summary ---
:1945 Author Organization [facility] Address [address] [place] [address] Care Team Providers Name Role Phone RaminSoila Primary Care Provider Reason for Visit (Routine/Next Available) - Receiving Office to Obtain Authorization Specialty Diagnoses / Procedures Referred By Contact Refer red To Contact Procedures Unknown, Provider, CT OUTSIDE IMAGES BODY Phone: Referral ID Status Reason Start Expiration Visits Visits Date Date Requested Authorized [id number] Receiving Office 1 to Obtain 1 Authorization Encounter Details Date Type Department Care Team Description 08/08/2021 Hospital Encounter [facility] Secondary Reads Social History Tobacco Use Types Packs/Day Years Used Date Current Every Day Smoker Cigarettes 0.5 50 Smokeless Tobacco: Never Used Alcohol Use Standard Drinks/Week Comments No 0 (1 standard drink = 0.6 oz pure alcoho l) Sex Assigned at Date Recorded Not on file documented as of this encounter Medications at Time of Discharge Medication Sig Dispensed Refills Start Date End Date acetaminophen (TYLENOL) 500 Take 325 mg by mouth 0 mg tablet every 6 hours as needed for Pain. albuterol (PROAIR HFA) 90 2 puff(s) inhaled 4 0 mcg/actuation inhaler times a day amitriptyline (ELAVIL) 100 Take 100 mg by mouth 0 mg tablet at bedtime. amLODIPine (NORVASC) 10 mg Take 5 mg by mouth 0 0 11/27/2019 tablet daily. atorvastatin (LIPITOR) 20 TK 1 T PO QHS 0 01/20/ 020 mg tablet budesonide (PULMICORT) 0.5 INHALE 1 AMPULE BY 0 0 11/23/2019 mg/2 mL nebulizer MOUTH VIA NEBULIZER suspension DAILY cetirizine (ZYRTEC) 10 mg Take 10 mg by mouth 0 0 11/13/2019 tablet at bedtime. DULoxetine (CYMBALTA) 60 mg Take 60 mg by mouth 0 capsule daily. famotidine (PEPCID) 20 mg TAKE 1 TABLET BY 0 08/28 tablet MOUTH TWICE DAILY FOR GERD ipratropium-albuteroL USE ONE VIAL VIA 0 11/19/19 20 (DUONEB) 0.5 mg-3 mg(2.5 mg NEBULIZER QID base)/3 mL nebulizer solution losartan (COZAAR) 100 mg TK 1 T PO QD 0 0 tablet Magnesium Gluconate 27 mg TAKE 2 TABLETS BY 0 magnesium (500 mg) tablet MOUTH THREE TIMES DAILY morphine (MS CONTIN) 15 mg TAKE 1 TABLET BY 0 10/2020 CR tablet MOUTH ONCE DAILY IN THE MORNING morphine (MS CONTIN) 30 mg Take 30 mg by mouth 0 CR tablet every 12 hours. mupirocin (BACTROBAN) 2 % APPLY TO AFFECTED 0 ointment AREA TWICE DAILY FOR ONE WEEK OR UNTIL RESOLVED naloxone HCl (NARCAN NASAL) by nasal route as 0 needed. Administer in both nostrils as needed nicotine (NICODERM CQ) 14 APPLY 1 PATCH 0 021 mg/24 hr patch EXTERNALLY ONCE DAILY TO HAIRLESS AREA ROTATING SKIN SITES omeprazole (PRILOSEC) 20 mg Take 40 mg by mouth 0 capsule daily. ondansetron (ZOFRAN-ODT) 8 4 mg. 0 0 mg disintegrating tablet polyethylene glycol MIX 1 CAPFUL WITH 8 0 021 (GLYCOLAX) 17 gram/dose OUNCES OF LIQUID AND powder TAKE BY MOUTH ONCE DAILY OR NEEDED polysorbate 80/glycerin Apply to eye daily. 0 (REFRESH DRY EYE THERAPY OPHT) predniSONE (DELTASONE) 2.5 Take 2.5 mg by mouth 0 mg tablet daily. prochlorperazine 1 tab(s) orally 3 0 (COMPAZINE) 5 mg tablet times a day spironolactone (ALDACTONE) TK 1 T PO D 0 11/30/19 20 25 mg tablet torsemide (DEMADEX) 20 mg Take by mouth. 0 2019 tablet vit A/vit C/vit Take by mouth daily. 0 E/zinc/copper (PRESERVISION AREDS ORAL) documented as of this encounter Discharge Disposition Disposition Code Departure Means Destination Home or Self Care documented in this encounter Plan of Treatment Not on filedocumented as of this encounter Procedures Procedure Name Priority Date/Time Associated Diagnosis Comme nts CT OUTSIDE IMAGES Routine 08/10/2021 7:02 EST Res ults for this BODY procedure are i n the results section. documented in this encounter Results CT OUTSIDE IMAGES BODY (08/10/2021 7:02 EST) Specimen Narrative 08/10/2021 7:02 EST This is a non-reportable exam. documented in this encounter Visit Diagnoses Not on filedocumented in this encounter Care Teams Meal Cooker Relationship Specialty Start Date End Date Soila Faustin PCP - General Internal Medicine - Primary 02/06/20 [address] [place] [address] documented as of this encounter
--- OUTSIDE RECORDS SUMMARY | 2022-02-21 01:07 | XMS_ITS | Encounter Summary ---
:1945 Author Organization [facility] Address [address] [place] [address] Care Team Providers Name Role Phone Soila Faustin Primary Care Provider Reason for Visit Reason Onset Date Comments Medications Refill 11/06/2020 Encounter Details Date Type Department Care Team Description 11/06/2020 Telephone [facility] Hardeep Kelley MD Medications Refill Adult Hematology & [address] [facility], Oncology [address] [address] [facility] [address] [place] [address] [place], [place] [phone] (Wo rk) Social History Tobacco Use Types Packs/Day Years Used Date Current Every Day Smoker Cigarettes 0.5 50 Smokeless Tobacco: Never Used Alcohol Use Standard Drinks/Week Comments No 0 (1 standard drink = 0.6 oz pure alcoho l) Sex Assigned at Date Recorded Not on file documented as of this encounter Miscellaneous Notes Telephone Encounter - Ishaan Zhao RN - 11/06/2020 140 EST Images from the original note were not included. Morphine Sulfate 30mg ER, 1 tab BID - Last refilled Morphine 15mg ER, 1 tab once daily (am) 11/06/20 14:06 VPMS checked Morphine has been filled by Soila Faustin (PCP) 11/06/20 14:10 Returned call to [facility], No vm set up. ESH - Last seen by Dr. Bella 08/16/20 during [facility] downtime, no documentation in ov note that youwould be taking over pain med management. Please advise. Thanks! Hardeep Bella MD You 18 hours ago (15:57) I do not remember saying that. She has been on this I think even before this diagnosis. Is she asking for this or PCP? Message text 11/07/20 10:48 Called Carly, left message for pt to call back. 11/07/20 11:44 Returned call to [facility], she states the nurse advised that she call back to update med list. She clarified she does not need refills. It was a bit confusing as she left it on the prescription refillline. She reports Morphine 30mg she takes BID, Morphine 15mg is prescribed every 4 hours prn, but only takes once daily and I confirmed she does not take Morphine 60mg tabs. Med list updated. [facility] Hardeep Bella MD You 43 minutes ago (12:54) Thanks Ishaan. Message text documented in this encounter Plan of Treatment Not on filedocumented as of this encounter Visit Diagnoses Not on filedocumented in this encounter Discontinued Medications Medication Sig Discontinue Reason Start Date End Date morphine (MS CONTIN) 60 Take 60 mg by mouth Therapy completed 12/2911/07/2020 mg CR tablet 2 times daily. documented as of this encounter Care Teams Cleaning Custodian Relationship Specialty Start Date End Date Soila Faustin PCP - General Internal Medicine - Primary 02/06/20 [address] [place] [address] documented as of this encounter
--- OUTSIDE RECORDS SUMMARY | 2022-02-21 01:07 | XMS_ITS | Clinical Summary ---
:1945 Author Organization [facility] Address [address] [place] [address] Care Team Providers Name Role Phone Ramin Soila R Primary Care Provider Allergies Active Allergy Reactions Severity Noted Date Comments Codeine Anaphylaxis High 04/05/2019 Patient states she is not allergic to codeine 1 13:49 Penicillin Anaphylaxis High 04/05/2019 Penicillins 11/23/2013 Tetracycline Anaphylaxis High 04/05/2019 Medications Medication Sig Dispensed Refills Start Date End Date Status DULoxetine (CYMBALTA) Take 60 mg by 0 Active 60 mg capsule mouth daily. omeprazole (PRILOSEC) Take 40 mg by 0 Active 20 mg capsule mouth daily. amitriptyline (ELAVIL) Take 100 mg by 0 Active 100 mg tablet mouth at bedtime. amLODIPine (NORVASC) 10 Take 5 mg by 0 11/27/2019 Active mg tablet mouth daily. atorvastatin (LIPITOR) TK 1 T PO QHS 0 01/21/2020 Active 20 mg tablet budesonide (PULMICORT) INHALE 1 AMPULE 0 11/23/2019 Active 0.5 mg/2 mL nebulizer BY MOUTH VIA suspension NEBULIZER DAILY cetirizine (ZYRTEC) 10 Take 10 mg by 0 11/13/2019 Active mg tablet mouth at bedtime. ipratropium-albuteroL USE ONE VIAL VIA 0 11/19/2019 Active (DUONEB) 0.5 mg-3 NEBULIZER QID mg(2.5 mg base)/3 mL nebulizer solution torsemide (DEMADEX) 20 Take by mouth. 0 01/06/2020 Active mg tablet spironolactone TK 1 T PO D 0 11/30/2019 Ac tive (ALDACTONE) 25 mg tablet losartan (COZAAR) 100 TK 1 T PO QD 0 01/14/2020 Active mg tablet albuterol (PROAIR HFA) 2 puff(s) inhaled 0 Active 90 mcg/actuation 4 times a day inhaler ondansetron 4 mg. 0 01/13/2020 Active (ZOFRAN-ODT) 8 mg disintegrating tablet prochlorperazine 1 tab(s) orally 3 0 Active (COMPAZINE) 5 mg tablet times a day morphine (MS CONTIN) 30 Take 30 mg by 0 Active mg CR tablet mouth every 12 hours. famotidine (PEPCID) 20 TAKE 1 TABLET BY 0 09/07/2020 Active mg tablet MOUTH TWICE DAILY FOR GERD Magnesium Gluconate 27 TAKE 2 TABLETS BY 0 1 Active mg magnesium (500 mg) MOUTH THREE TIMES tablet DAILY mupirocin (BACTROBAN) 2 APPLY TO AFFECTED 0 10/22/19 21 Active % ointment AREA TWICE DAILY FOR ONE WEEK OR UNTIL RESOLVED nicotine (NICODERM CQ) APPLY 1 PATCH 0 10/27/2020 Active 14 mg/24 hr patch EXTERNALLY ONCE DAILY TO HAIRLESS AREA ROTATING SKIN SITES morphine (MS CONTIN) 15 TAKE 1 TABLET BY 0 1 Active mg CR tablet MOUTH ONCE DAILY IN THE MORNING polyethylene glycol MIX 1 CAPFUL WITH 0 12/19/2020 Active (GLYCOLAX) 17 gram/dose 8 OUNCES OF powder LIQUID AND TAKE BY MOUTH ONCE DAILY OR NEEDED acetaminophen (TYLENOL) Take 325 mg by 0 Active 500 mg tablet mouth every 6 hours as needed for Pain. vit A/vit C/vit Take by mouth 0 Active E/zinc/copper daily. (PRESERVISION AREDS ORAL) polysorbate 80/glycerin Apply to eye 0 Active (REFRESH DRY EYE daily. THERAPY OPHT) naloxone HCl (NARCAN by nasal route as 0 Active NASAL) needed. Administer in both nostrils as needed predniSONE (DELTASONE) Take 2.5 mg by 0 Active 2.5 mg tablet mouth daily. tiotropium (SPIRIVA) 18 Inhale 18 mcg as 0 Active mcg inhalation capsule directed daily. Active Problems Problem Noted Date Liver metastases (HCC-CMS) 06/13/2021 Chronic pain 10/27/2019 Malignant neoplasm of female breast (HCC-CMS) 10/27/19 20 Overview: 1998: Stage 1 Left ductal breast cancer - T1a,N0,M0,G1 - ER+/LA-. 012 node involvement. - Completed 5 years tamoxifen. Malignant neoplasm of respiratory tract ([facility]) 09/30 Multiple sclerosis ([facility]) 10/27/2019 Overview: Multiple sclerosis: At time of diagnosis , she reports her main symptom was fatigue. Had a very difficult time remaining awake. Went through a battery of testing, reports that she was told she had it at first, then that she didn't, then that s he did. Offered to complete injections, which she declined. Dr. Sharma was her neurologist and she . Currently seeing . Primary malignant neoplasm of lung ([facility]) 0 Overview: Problem 28 March 2018: Right non-small miguel l lung cancer - 02/2018: Presented with cough, occasion al hemoptysis. Persisted despite abx. - 03/11/18: CT scan showed two left lung nodules suspicious for malignancy. Multiple hypodense masses in thyroid gland, largest 2.6 cm in right lobe, previously 2.0 in 2011. New nodular area 1.0 cm in orourke perior segment of LLL, increase in size of multicystic area in lateral LLL. - 04/06/18: CT guided bx of left lower maico ng lobe consistent with adenocarcinoma, non-small cell lung cancer primary. Sample too small to complete molecular testing. - 04/29/18: PET/CT scan showed multiple FD G avid lesions in WON apex, RUL, lingula. Consistent with Stage IV - 04/2018: Start chemotherapy at end of A ugust. Regimen consists of Carboplatin/Taxol D1, 8, 15 and Bevacizumab D1, 15 under supervision of . - 06/21/18: PD-L1 91-100% - 06/26/18: Reported decline in memory. M RI brain showed no masses, no infarctions, no hemorrhage. - 08/04/18: Cycle #1 Carbo/Taxol - 11/08/18: Switched to maintenance Bevac izumab -10/31/2020: CT scans showed possible prog ression. This was confirmed with a follow-up PET scan. Problem 2 2007: NSCLC T2N0 - 2007: Right lower lobectomy - Positive margins at visceral pleura - Adjuvant chemoradiation with carboplat in/taxol. Encounters Date Type Specialty Care Team Description 02/13/2022 Lab Requisition Clinical Laboratory Outr Resulting Lab , Provider 01/11/2022 Lab Requisition Clinical Laboratory Outr Resulting Lab , Provider from Last 3 Months Immunizations Name Administration Dates Next Due Influenza Vaccine High Dose (FLUZONE HIGH DOSE) PF 0.7 07/25 ml IM (65 yrs+) Surgical History Surgery Date Site/Laterality Comments MASTECTOMY, RADICAL bilateral HYSTERECTOMY LUNG REMOVAL, PARTIAL CHOLECYSTECTOMY TOENAIL EXCISION APPENDECTOMY LUNG BIOPSY 09/28/2017 - 09/27/2018 Left CATARACT REMOVAL KNEE CARTILAGE SURGERY 09/28/2009 - 09/27/2010 Right TUNNELED VENOUS PORT PLACEMENT 09/28/2018 - 09/27/2019 COLONOSCOPY 2006, 2008 CARPAL TUNNEL RELEASE bilateral Medical History Medical History Date Comments Hypertension Hyperlipidemia COPD (chronic obstructive pulmonary disease) (HCC-CMS) (HCC) Multiple sclerosis (HCC-CMS) (HCC) Fibromyalgia Family History Medical History Relation Name Comments Heart Disease Father Stroke Mother Relation Name Status Comments Brother Alive Daughter Alive Daughter Alive Daughter Alive Father Mother Social History Tobacco Use Types Packs/Day Years Used Date Current Every Day Smoker Cigarettes 0.5 50 Smokeless Tobacco: Never Used Alcohol Use Standard Drinks/Week Comments No 0 (1 standard drink = 0.6 oz pure alcoho l) Sex Assigned at Date Recorded Not on file Last Filed Vital Signs Vital Sign Reading Time Taken Comments Blood Pressure 105/60 08/13/2021 1316 EST Pulse 73 08/13/2021 1316 EST Temperature 36.8 ??C (98.3 ??F) 11/06/2020 1034 EST Respiratory Rate 16 04/06/2018 1607 EDT Oxygen Saturation 90% 08/13/2021 1316 EST Inhaled Oxygen Concentration - - Weight 71.6 kg (157 lb 12.8 oz) 08/13/2021 1316 EST Height 163.8 cm (5' 4.5) 04/06/2018 1208 EDT Body Mass Index 26.67 04/06/2018 1208 EDT Plan of Treatment Health Maintenance Due Date Last Done Comments Lung Cancer Screening 1945 COVID-19 Vaccine (1) 1951 Fall Risk Screening 2011 Hepatitis C Screen Completed 01/10/2022 Procedures Procedure Name Priority Date/Time Associated Diagnosis Comme nts COVID-19 TEST [facility] Today 02/12/2022 14:45 LAB PCR EDT COVID-19 TESTING Routine 02/12/2022 14:45 Results for this EDT procedure are i n the results section. HEPATITIS C AB W Routine 01/10/2022 11:12 Results for this REFLEX TO HCV RNA EDT procedure are in BY PCR the results section. from Last 3 Months Results COVID-19 TEST [facility] PCR (02/12/2022 14:45 EDT) Specimen Swab Performing Organization Address City/[facility]/[place] Code Phon e Number [facility] [address] [place] [address] SERVICES COVID-19 TESTING (02/12/2022 14:45 EDT) COVID-19 rt-PCR Negative Negative [facility] Result Comment: CENTER LABORATORY This test [...] was performed using the tim SARS-CoV-2 assay ([employer] on the Tim 6800 System Performing Lab Tim [address] [facility] Lab [facility] SERVICES Specimen Swab Performing Organization Address City/[facility]/ZIP Code Phon e Number [facility] [address] [place] [address] SERVICES HEPATITIS C AB W REFLEX TO HCV RNA BY PCR (01/10/2022 11:12 EDT) Pathologist Sig nature Hep C Antibody Negative Negative [facility] SERVICES Specimen Blood - Venous blood (substance) Performing Organization Address City/State/ZIP Code Phon e Number [facility] [address] [place] [address] SERVICES from Last 3 Months Insurance Payer Benefit Plan / Subscriber ID Effective Phone Address T ype Group Dates MEDICARE MEDICARE A/B [id number] 2001-Pres [address] Medicare GL ent [place] [address] [place]ID [id number] 2021-Prese [address] [place] [facility] [place] [address] [place] [id number] 2021-Pres [address] Medicaid [place] [place] [id number] BlaneCarly Personal/Family Self 1945 [address]) [place] [address] BlaneCarly Personal/Family Self 1945 [address] [address] BlaneCarly Personal/Family Self 1945 [address] (Home) [place] [address] Blane,Carly Personal/Family Self 1945 [address]Home) [place] [address] BlaneCarly Personal/Family Self 1945 [address] (Home) [place] [address] Blane,Carly Personal/Family Self 1945 [address] (Home) [place] [address] Carly Arguelles Personal/Family Self 1945 [address] (Home) [place] [address] Advance Directives For more information, please contact: [phone] Documents on File Type Date Recorded 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
--- OUTSIDE RECORDS SUMMARY | 2022-02-21 01:07 | XMS_ITS | Encounter Summary ---
:1945 Author Organization [facility] Address [address] [place] [address] Care Team Providers Name Role Phone RaminSoila Primary Care Provider Reason for Visit (Routine/Next Available) - Receiving Office to Obtain Authorization Specialty Diagnoses / Procedures Referred By Contact Refer red To Contact Procedures Unknown, Provider, XR OUTSIDE IMAGES CHEST Phone: Referral ID Status Reason Start Expiration Visits Visits Date Date Requested Authorized [id number] Receiving Office 1 to Obtain 1 Authorization Encounter Details Date Type Department Care Team Description 08/07/[address] [facility] Secondary Reads Social History Tobacco Use Types [...] Name Priority Date/Time Associated Diagnosis Comme nts XR OUTSIDE IMAGES Routine 08/13/2021 21:02 Result s for this CHEST EST procedure are i n the results section. documented in this encounter Results XR OUTSIDE IMAGES CHEST (08/13/2021 21:02 EST) Specimen Narrative 08/13/2021 21:02 EST This is a non-reportable exam. documented in this encounter Visit Diagnoses Not on filedocumented in this encounter Care Teams Community Board Member Relationship Specialty Start Date End Date Soila Faustin PCP - General Internal Medicine - Primary 02/06/20 4 [place] [address] documented as of this encounter
--- OUTSIDE RECORDS SUMMARY | 2022-02-21 01:07 | XMS_ITS | Encounter Summary ---
:1945 Author Organization [facility] Address [address] [place] [address] Care Team Providers Name Role Phone Soila Faustin Primary Care Provider Reason for Visit Reason Onset Date Comments Appointment Related 10/09/2021 Encounter Details Date Type Department Care Team Description 10/09/2021 Telephone [facility] - Hardeep Bella MD Appointment Related [facility] Adult Hematology & [address] [facility], Oncology [address] [facility] [address] [place] [address] [place] [phone] (Wo rk) Social History Tobacco Use Types Packs/Day Years Used Date Current Every Day Smoker Cigarettes 0.5 50 Smokeless Tobacco: Never Used Alcohol Use Standard Drinks/Week Comments No 0 (1 standard drink = 0.6 oz pure alcoho l) Sex Assigned at Date Recorded Not on file documented as of this encounter Miscellaneous Notes Telephone Encounter - Valeri Armas MA - 10/09/2021 1515 EST Forwarding to her wonderful physician :) elephone Encounter - Joann Bryan - 10/09/2021 1317 EST Pt called to cx her appt with Dr Bella, pt has moved to [place], [place]. Pt wanted to let Dr Tipirneni know that she was very happy with him and the care she received. She had to change because [facility] transportation said that it is a lot closer for them to drive her to [facility] vs driving her [employer]. documented in this encounter Plan of Treatment Not on filedocumented as of this encounter Visit Diagnoses Not on filedocumented in this encounter Care Teams Oil Burner Servicer And Installer Relationship Specialty Start Date End Date Soila Faustin PCP - General Internal Medicine - Primary 02/06/20 4 [place] [address] documented as of this encounter
--- OUTSIDE RECORDS SUMMARY | 2022-02-21 01:07 | XMS_ITS | Encounter Summary ---
:1945 Author Organization [facility] Address [address] [place] [address] Care Team Providers Name Role Phone Soila Faustin Primary Care Provider Reason for Referral Radiology Services (Routine) - Specialty Report Received Specialty Diagnoses / Procedures Referred By Contact Refer red To Contact Nuclear Medicine Diagnoses Primary malignant neoplasm of lung, unspecified laterality ([facility]) ([facility]) Hardeep Bella MD Procedures PET CT EYE TO THIGH [address] [facility], [address] [place] [address] Referral ID Status Reason Start Date Expiration Date Visits V isits Requested Authorized [id number] Specialty 11/06/2020 1 1 Report Received Reason for Visit Reason Comments Follow-up Encounter Details Date Type Department Care Team Description 11/06/2020 Office Visit [facility] - Hardeep Bella, Liz imary malignant [facility] Adult Hematology neoplasm of lung, & Oncology [address] [facility], unspecified laterality [address] [facility] ([facility] (Primary Dx) [address] [place] [address] [place], [place] [phone] Social History Tobacco Use Types Packs/Day Years Used Date Current Every Day Smoker Cigarettes 0.5 50 Smokeless Tobacco: Never Used Alcohol Use Standard Drinks/Week Comments No 0 (1 standard drink = 0.6 oz pure alcoho l) Sex Assigned at Date Recorded Not on file documented as of this encounter Last Filed Vital Signs Vital Sign Reading Time Taken Comments Blood Pressure 140/80 11/06/2020 1034 EST Pulse 79 11/06/2020 1034 EST Temperature 36.8 ??C (98.3 ??F) 11/06/2020 1034 EST Respiratory Rate - - Oxygen Saturation 97% 11/06/2020 1034 Currently on 2 L via EST NC Inhaled Oxygen - - Concentration Weight 67.6 kg (149 lb) 11/06/2020 1034 EST Height - - Body Mass Index 25.18 04/06/2018 1208 EDT documented in this encounter Progress Notes Ky Dorantes RN - 11/06/2020 1030 EST Suspicion of Abuse: no - If yes, please document evidence: - Assessed on: 11/06/20 11:10 - Assessed by: KY DORANTES RN Hardeep Khalil MD - 11/06/2020 1030 EST Images from the original note were not included. Patient Active Problem List Diagnosis ??? Malignant neoplasm of female breast (HCC-CMS) 1997: Stage 1 Left ductal breast cancer - T1a,N0,M0,G1 - ER+/IN-. 0/12 node involvement. - Completed 5 years tamoxifen. ??? Primary malignant neoplasm of lung (HCC-CMS) Problem 28 March 2018: Right non-small cell lung cancer - 02/2018: Presented with cough, occasional hemoptysis. Persisted despite abx. - 03/11/18: CT scan showed two left lung nodules suspicious for malignancy. Multiple hypodense massesin thyroid gland, largest 2.6 cm in right lobe, previously 2.0 in 2012. New nodular area 1.0 cm in superior segment of LLL, increase in size of multicystic area in lateral LLL. - 04/06/18: CT guided bx of left lower lung lobe consistent with adenocarcinoma, non-small cell lung cancer primary. Sample too small to complete molecular testing. - 04/29/18: PET/CT scan showed multiple FDG avid lesions in WON apex, RUL, lingula. Consistent with Stage IV - 04/2018: Start chemotherapy at end of April. Regimen consists of Carboplatin/Taxol D1, 8, 15 and Bevacizumab D1, 15 under supervision of . - 06/21/18: PD-L1 91-100% - 06/26/18: Reported decline in memory. MRI brain showed no masses, no infarctions, no hemorrhage. - 08/04/18: Carbo/Taxol - 11/08/18: Switched to maintenance Bevacizumab Problem 2 2006: NSCLC T2N0 - 2006: Right lower lobectomy - Positive margins at visceral pleura - Adjuvant chemoradiation with carboplatin/taxol. Subjective Interim History: Patient presents for follow-up. She had CT scans in the interim. Denies any ER visits or hospitalizations. Breathing has been stable. Increased night time oxygen to 3.5 liters. Using 2liters during the day. Currently on a tapering dose of prednisone. Nausea is better. Review of Systems: Review of Systems Constitutional: Negative for chills and fever. HENT: Negative for ear pain, sinus pain and sore throat. Eyes: Negative for pain and discharge. Respiratory: Positive for shortness of breath (Diagnosis of COPD and CHF.). Negative for cough and hemoptysis. Cardiovascular: Positive for leg swelling. Negative for chest pain and palpitations. Gastrointestinal: Positive for nausea (Early AM). Negative for diarrhea and vomiting. Genitourinary: Negative for dysuria and urgency. Musculoskeletal: Negative for back pain. Positive LE tenderness. Skin: Negative. Neurological: Negative for dizziness and speech change. Endo/Heme/Allergies: Negative. Psychiatric/Behavioral: Negative for depression. Social History Tobacco Use ??? Smoking status: Current Every Day Smoker Packs/day: 0.50 Years: 50.00 Pack years: 25.00 Types: Cigarettes ??? Smokeless tobacco: Never Used Substance Use Topics ??? Alcohol use: No ??? Drug use: No Current Outpatient Medications Medication ??? albuterol (PROAIR HFA) 90 mcg/actuation inhaler ??? amitriptyline (ELAVIL) 100 mg tablet ??? amLODIPine (NORVASC) 10 mg tablet ??? atorvastatin (LIPITOR) 20 mg tablet ??? budesonide (PULMICORT) 0.5 mg/2 mL nebulizer suspension ??? cetirizine (ZYRTEC) 10 mg tablet ??? dexAMETHasone (DECADRON) 4 mg tablet ??? DULoxetine (CYMBALTA) 60 mg capsule ??? fluticasone propionate (FLOVENT HFA) 110 mcg/actuation inhaler ??? ipratropium-albuteroL (DUONEB) 0.5 mg-3 mg(2.5 mg base)/3 mL nebulizer solution ??? losartan (COZAAR) 100 mg tablet ??? magnesium amino acid chelate 27 mg tablet ??? meclizine (ANTIVERT) 25 mg tablet ??? metoclopramide HCl (REGLAN) 10 mg tablet ??? morphine (MS CONTIN) 30 mg CR tablet ??? morphine (MS CONTIN) 60 mg CR tablet ??? morphine (MS IR) 15 mg tablet ??? omeprazole (PRILOSEC) 20 mg capsule ??? ondansetron (ZOFRAN-ODT) 8 mg disintegrating tablet ??? predniSONE (DELTASONE) 1 mg tablet ??? prochlorperazine (COMPAZINE) 5 mg tablet ??? simvastatin (ZOCOR) 20 mg tablet ??? spironolactone (ALDACTONE) 25 mg tablet ??? tiotropium-olodateroL (STIOLTO RESPIMAT) 2.5-2.5 mcg/actuation inhaler ??? torsemide (DEMADEX) 20 mg tablet No current facility-administered medications for this visit. Vitals: 11/06/20 1034 BP: 140/80 Pulse: 79 Temp: 36.8 ??C (98.3 ??F) SpO2: 97% Weight: 67.6 kg (149 lb) Wt Readings from Last 3 Encounters: 11/06/20 67.6 kg (149 lb) 08/16/20 68 kg (150 lb) 05/16/20 69.9 kg (154 lb) Physical Exam: Physical Exam Constitutional: She is oriented to person, place, and time. Uses a cane, on home O2. HENT: Head: Normocephalic and atraumatic. Eyes: EOM are normal. Neck: Normal range of motion. Neck supple. Cardiovascular: Regular rhythm. Pulmonary/Chest: Effort normal and breath sounds normal. Abdominal: Soft. There is no abdominal tenderness. Neurological: She is alert and oriented to person, place, and time. Skin: Skin is warm and dry. She is not diaphoretic. Psychiatric: She has a normal mood and affect. ECOG Performance Status:??2 - Ambulatory and capable of all self-care but unable to carry out any work activities, up and about more than 50% of waking hours Imagin10/31/20 Assessment & Plan 1. Metastatic non-small cell lung adenocarcinoma. PDL1 expression 91-100%. S/p carboplatin, paclitaxel,and bevacizumab x 5 cycles. Currently on maintenance bevacizumab, tolerating relatively well. Receiving this at [facility]. Reviewed CT images with the patient. Showed stable findings in the lung but an approximately 2.5 cm lesion in the right lobe of the liver. This is concerning and I recommended further evaluation with aPET scan. There is also a healing 11th rib fracture which I think is more from the falls she had in the past. (High PDL1 expression. She was seen by neurology and was determined that she unlikely has MS. Will continue her on cytotoxic chemotherapy for now and reserve immunotherapy as an option in the future incase she has progression). 2. Vertigo. Improved with meclizine. Taking this only at night. 3. Chronic pain. Currently taking MS contin 60 mg q8hrs. 4. Nausea. Continues to be bothered by intermittent nausea, especially in the morning. MRI on 08/17/19 unremarkable. Continue antiemetics. Plan: 1. Obtain PET scan in the next couple of weeks. 2. Return for follow-up in 3 weeks. 3. Hold bevacizumab infusion. Hardeep Bella MD Hematology/Oncology [facility] Cc:Orin Schreiber APRN, Dr. Soila Faustin documented in this encounter Plan of Treatment Scheduled Orders Name Type Priority Associated Diagnoses Order S chedule PET CT EYE TO THIGH Imaging Routine Primary malignant fuad plasm Ordered: 11/06/2020 of lung, unspecified laterality (HCC-CMS) documented as of this encounter Visit Diagnoses Diagnosis Primary malignant neoplasm of lung, unsp ecified laterality (HCC-CMS) (HCC) - Primary documented in this encounter Discontinued Medications Medication Sig Discontinue Reason Start Date End Date aspirin 81 mg EC tablet Take 81 mg by mouth Therapy completed 11/06/2020 daily. documented as of this encounter Historical Medications This list may reflect changes made after this encounter. Medication Sig Dispensed Refills Start Date End Date morphine (MS CONTIN) 30 Take 30 mg by mouth 0 mg CR tablet every 12 hours. morphine (MS IR) 15 mg Take 15 mg by mouth 0 11/28/2020 tablet every 4 hours as needed for Pain. Per pt: only taking once daily added in this encounter Care Teams Paper Stacker Relationship Specialty Start Date End Date Soila Faustin PCP - General Internal Medicine - Primary 02/06/20 [address] [place] [address] documented as of this encounter
--- OUTSIDE RECORDS SUMMARY | 2022-02-21 01:07 | XMS_ITS | Encounter Summary ---
:1945 Author Organization [facility] Address [address] [place] [id number] Care Team Providers Name Role Phone Soila Faustin Primary Care Provider Reason for Visit Reason Comments Follow-up Encounter Details Date Type Department Care Team Description 06/13/2021 Office Visit [facility] - Hardeep Bella, Liz imprema malignant neoplasm of lung, unspecified laterality (HCC-CMS) (Primary Dx); [facility] [place] Hematology MD Liver metastases (HCC-CMS) & Oncology [address] [facility], [address] [place] [address] [place] [address] [place], [place] [phone] Social History Tobacco Use Types Packs/Day Years Used Date Current Every Day Smoker Cigarettes 0.5 50 Smokeless Tobacco: Never Used Alcohol Use Standard Drinks/Week Comments No 0 (1 standard drink = 0.6 oz pure alcoho l) Sex Assigned at Date Recorded Not on file documented as of this encounter Last Filed Vital Signs Vital Sign Reading Time Taken Comments Blood Pressure 132/60 06/13/2021 1454 EDT Pulse 88 06/13/2021 1454 EDT Temperature - - Respiratory Rate - - Oxygen Saturation 92% 06/13/2021 1454 EDT Inhaled Oxygen Concentration - - Weight 62.1 kg (137 lb) 06/13/2021 1454 EDT Height - - Body Mass Index 23.15 04/06/2018 1208 EDT documented in this encounter Progress Notes Hardeep Bella MD - 06/13/2021 1500 EDT Images from the original note were not included. Patient Active Problem List Diagnosis ??? Malignant neoplasm of female breast (HCC-[facility]) 1997: Stage 1 Left ductal breast cancer - T1a,N0,M0,G1 - ER+/OH-. 0/12 node involvement. - Completed 5 years tamoxifen. ??? Primary malignant neoplasm of lung (HCC-[facility]) Problem 28 March 2018: Right non-small cell lung cancer - 02/2018: Presented with cough, occasional hemoptysis. Persisted despite abx. - 03/11/18: CT scan showed two left lung nodules suspicious for malignancy. Multiple hypodense massesin thyroid gland, largest 2.6 cm in right lobe, previously 2.0 in 2011. New nodular area 1.0 cm in superior [...] Carbo/Taxol - 11/08/18: Switched to maintenance Bevacizumab -10/31/2020: CT scans showed possible progression. This was confirmed with a follow-up PET scan. Problem 2 2006: NSCLC T2N0 - 2006: Right lower lobectomy - Positive margins at visceral pleura - Adjuvant chemoradiation with carboplatin/taxol. Subjective Interim History: Patient returns for follow-up. She had CT scans in the interim. Denies any new complaints. States that her breathing has been stable. She was recently started on prednisone 2.5 mg by palliative care. She continues to use 2 L of oxygen during the day and 3 and have at night. States that she is still able to take care of herself. Able to cook and shower by herself. Denies any abdominal pain or diarrhea. Review of Systems: Review of Systems Constitutional: [...] use: No Current Outpatient Medications Medication ??? acetaminophen (TYLENOL) 500 mg tablet ??? albuterol (PROAIR HFA) 90 mcg/actuation inhaler ??? amitriptyline (ELAVIL) 100 mg tablet ??? amLODIPine (NORVASC) 10 mg tablet ??? atorvastatin (LIPITOR) 20 mg tablet ??? budesonide (PULMICORT) 0.5 mg/2 mL nebulizer suspension ??? cetirizine (ZYRTEC) 10 mg tablet ??? DULoxetine (CYMBALTA) 60 mg capsule ??? famotidine (PEPCID) 20 mg tablet ??? ipratropium-albuteroL (DUONEB) 0.5 mg-3 mg(2.5 mg base)/3 mL nebulizer solution ??? losartan (COZAAR) 100 mg tablet ??? Magnesium Gluconate 27 mg magnesium (500 mg) tablet ??? morphine (MS CONTIN) 15 mg CR tablet ??? morphine (MS CONTIN) 30 mg CR tablet ??? mupirocin (BACTROBAN) 2 % ointment ??? naloxone HCl (NARCAN NASAL) ??? nicotine (NICODERM CQ) 14 mg/24 hr patch ??? omeprazole (PRILOSEC) 20 mg capsule ??? ondansetron (ZOFRAN-ODT) 8 mg disintegrating tablet ??? polyethylene glycol (GLYCOLAX) 17 gram/dose powder ??? polysorbate 80/glycerin (REFRESH DRY EYE THERAPY OPHT) ??? predniSONE (DELTASONE) 2.5 mg tablet ??? prochlorperazine (COMPAZINE) 5 mg tablet ??? spironolactone (ALDACTONE) 25 mg tablet ??? torsemide (DEMADEX) 20 mg tablet ??? vit A/vit C/vit E/zinc/copper (PRESERVISION AREDS ORAL) No current facility-administered medications for this visit. Vitals: 06/13/21 1454 BP: 132/60 Pulse: 88 SpO2: 92% Weight: 62.1 kg (137 lb) Wt Readings from Last 3 Encounters: 06/13/21 62.1 kg (137 lb) 04/09/21 62.6 kg (138 lb) 11/06/20 67.6 kg (149 lb) Physical Exam: Physical Exam Constitutional: She is oriented to person, place, and time. She appears well- developed and well-nourished. HENT: Head: Normocephalic and atraumatic. Eyes: EOM are normal. Pulmonary/Chest: She has no wheezes. She has no rales. Musculoskeletal: Cervical back: Normal range of motion and neck supple. Neurological: She is alert and oriented to person, place, and time. Skin: Skin is warm and dry. Psychiatric: She has a normal mood and affect. ECOG Performance Status:??2 - Ambulatory and capable of all self-care but unable to carry out any work activities, up and about more than 50% of waking hours Imagin06/10/21 Assessment & Plan 1. Metastatic non-small cell lung adenocarcinoma. PDL1 expression 91-100%. S/p carboplatin, paclitaxel,and bevacizumab x 5 cycles. Subsequently was switched to maintenance bevacizumab and she has been on this for approximately [address] imaging from Octoberhowed stable findings in the lung but an approximately 2.5 cm lesion in the right lobe of the liver. A PET scan was obtained for further evaluation and did confirm progression. There is significant uptake within the new solitary lesion in the right hepatic dome. There areFDG avid left hilar lymph nodes as well as bilateral lung nodules. Started treatment with pembrolizumab. PET scan showed partial treatment response with decrease in FDG activity of the mediastinal adenopathy and right liver lesion. Majority of the pulmonary nodules also demonstrated partial therapeutic response. The right basilar pleural effusion with a thickened rimstable compared to prior scans. No uptake within this area. Treatment was held for a couple of months due to worsening respiratory status, depression and lethargy. These were restarted in March 2021 after discussing the risk and benefits. Expressed that she wanted to continue treatments as long as she can handle them and preferred not to have any more interruptions. She is status post 7 cycles of pembrolizumab. Reviewed CT images with the patient. There is intervaldecrease in size of the hypodense area in the posterior segment of the right lobe of the liver. There is also significant decrease in the right basilar infiltrate compared to the previous exam. Stable l oculated pleural effusion. 2. Chronic pain. Currently taking MS contin 45 mg q8hrs. Plan: 1. Continue pembrolizumab treatments. 2. Plan on CT scans after 3 cycles and follow-up appointment with me. Hardeep Bella MD Hematology/Oncology [facility] Cc:Orin Schreiber APRN, Dr. Soila Faustin documented in this encounter Plan of Treatment Not on filedocumented as of this encounter Visit Diagnoses Diagnosis Primary malignant neoplasm of lung, unsp ecified laterality (HCC-CMS) (HCC) - Primary Liver metastases (HCC-CMS) (HCC) Secondary malignant neoplasm of liver documented in this encounter Discontinued Medications Medication Sig Discontinue Reason Start Date End Date predniSONE (DELTASONE) 1 mg tablet Therapy completed 0 12/29/2019 06/13/2021 documented as of this encounter Historical Medications This list may reflect changes made after this encounter. Medication Sig Dispensed Refills Start Date End Date predniSONE (DELTASONE) 2.5 Take 2.5 mg by mouth 0 mg tablet daily. added in this encounter Care Teams Rougher Machine Operator Relationship Specialty Start Date End Date Soila Faustin PCP - General Internal Medicine - Primary 02/06/20 [address] [place] [address] documented as of this encounter
--- OUTSIDE RECORDS SUMMARY | 2022-02-21 01:07 | XMS_ITS | Encounter Summary ---
:1945 Author Organization [facility] Address [address] [place] [address] Care Team Providers Name Role Phone Soila Faustin Primary Care Provider Encounter Details Date Type Department Care Team Description 01/11/2022 Lab Requisition [facility] Outr Resulting Lab, Pathology & Laboratory Provider [facility] [address] [place], [place] [address] Social History Tobacco Use Types Packs/Day Years [...] Name Priority Date/Time Associated Diagnosis Comme nts HEPATITIS C AB W Routine 01/10/2022 11:12 Results for this REFLEX TO HCV RNA EDT procedure are in BY PCR the results section. documented in this encounter Results HEPATITIS C AB W REFLEX TO HCV RNA BY PCR (01/10/2022 11:12 EDT) Pathologist Sig nature Hep C Antibody Negative Negative [facility] Specimen Blood - Venous blood (substance) Performing Organization Address City/State/ZIP Code Phon e Number [facility] [address] [place] [address] SERVICES documented in this encounter Visit Diagnoses Not on filedocumented in this encounter Care Teams Electrician Maintenance Relationship Specialty Start Date End Date Soila Faustin PCP - General Internal Medicine - Primary 02/06/20 [address] [place] [address] documented as of this encounter
--- OUTSIDE RECORDS SUMMARY | 2022-02-21 01:07 | XMS_ITS | Encounter Summary ---
:1945 Author Organization [facility] Address [address] [place] [address] Care Team Providers Name Role Phone Soila Faustin Primary Care Provider Reason for Visit Reason Onset Date Comments Other 11/19/2020 appointment Encounter Details Date Type Department Care Team Description 11/19/2020 Telephone [facility] - Hardeep Bella MD Other (appointment) [facility] H[facility]ology & [address] [facility], Oncology [address] [facility] [address] [place] [address] [place] [phone] (Wo rk) Social History Tobacco Use Types Packs/Day Years Used Date Current Every Day Smoker Cigarettes 0.5 50 Smokeless Tobacco: Never Used Alcohol Use Standard Drinks/Week Comments No 0 (1 standard drink = 0.6 oz pure alcoho l) Sex Assigned at Date Recorded Not on file documented as of this encounter Miscellaneous Notes Telephone Encounter - America Diane - 11/19/2020 1337 EST Patient would like to do a telemedicine appointment on 11/29/20. is going in for heart surgeryand she does not like to drive late in the day. Is it okay to make appointment telemedicine? Thanks. documented in this encounter Plan of Treatment Not on filedocumented as of this encounter Visit Diagnoses Not on filedocumented in this encounter Care Teams Floor And Wall Applier Liquid Relationship Specialty Start Date End Date Soila Faustin PCP - General Internal Medicine - Primary 02/06/20 [address] [place] [address] documented as of this encounter
--- OUTSIDE RECORDS SUMMARY | 2022-02-21 01:07 | XMS_ITS | Encounter Summary ---
:1945 Author Organization [facility] Address [address] [place] [address] Care Team Providers Name Role Phone Unavailable Primary Care Provider Unavailable Encounter Details Date Type Department Care Team Description 01/27/2020 Abstract [facility] Neurology [facility] [address] [place], [place] [id number] Social History Tobacco Use Types Packs/Day Years Used Date Current Every Day Smoker Cigarettes 0.5 50 Smokeless Tobacco: Never Used Alcohol Use Standard Drinks/Week Comments No 0 (1 standard drink = 0.6 oz pure alcoho l) Sex Assigned at Date Recorded Not on file documented as of this encounter Progress Notes [facility] - 01/27/2020 0855 EDT done documented in this encounter Plan of Treatment Not on filedocumented as of this encounter Visit Diagnoses Not on filedocumented in this encounter Discontinued Medications Medication Sig Discontinue Reason Start Date End Date PEG 3350-Electrolytes Take 34 g by mouth 01/27/2020 (MIRALAX) 17 gram packet daily. morphine (KARLOS) 30 mg Take 30 mg by mouth 01/27/2020 ER capsule, pellets 4 times daily. AZITHROMYCIN ORAL Take 250 mg by mouth 2 tabs day #1 then 1 tab day #2 (started 11/22/13) . diclofenac sodium Apply topically 3 01/26 (VOLTAREN) 1 % Gel times daily. b complex vitamins Take 1 Cap by mouth (VITAMIN B COMPLEX) daily. capsule documented as of this encounter Historical Medications This list may reflect changes made after this encounter. Medication Sig Dispensed Refills Start Date End Date prochlorperazine 1 tab(s) orally 3 0 (COMPAZINE) 5 mg tablet times a day ondansetron (ZOFRAN-ODT) 8 4 mg. 0 0 mg disintegrating tablet albuterol (PROAIR HFA) 90 2 puff(s) inhaled 4 0 mcg/actuation inhaler times a day losartan (COZAAR) 100 mg TK 1 T PO QD 0 0 tablet spironolactone (ALDACTONE) TK 1 T PO D 0 11/30/19 20 25 mg tablet torsemide (DEMADEX) 20 mg Take by mouth. 0 2019 tablet ipratropium-albuteroL USE ONE VIAL VIA 0 11/19/19 20 (DUONEB) 0.5 mg-3 mg(2.5 NEBULIZER QID mg base)/3 mL nebulizer solution cetirizine (ZYRTEC) 10 mg Take 10 mg by mouth 0 0 11/13/2019 tablet at bedtime. budesonide (PULMICORT) 0.5 INHALE 1 AMPULE BY 0 0 11/23/2019 mg/2 mL nebulizer MOUTH VIA NEBULIZER suspension DAILY atorvastatin (LIPITOR) 20 TK 1 T PO QHS 0 020 mg tablet amLODIPine (NORVASC) 10 mg Take 5 mg by mouth 0 0 11/27/2019 tablet daily. fluticasone propionate 2 puff(s) inhaled 2 0 04/09/2021 (FLOVENT HFA) 110 times a day mcg/actuation inhaler cholecalciferol, Vitamin 1 cap orally once 0 05/16/2020 D3, 1,000 unit tablet daily Vitamin B Comp & C No.4 1 tab(s) orally 0 05/16/2020 150 mg tablet once a day losartan (COZAAR) 50 mg TK 1 T PO D 0 11/18/2019 05/16/2020 tablet losartan (COZAAR) 25 mg Take 25 mg by mouth 0 01/202005/16/2020 tablet daily. predniSONE (DELTASONE) 1 0 12/29/2019 06/13/2021 mg tablet polyethylene glycol TAKE 1 CAPFUL OF 0 01/04/2020 05/16/2020 (GLYCOLAX) 17 gram/dose POWDER MIXED WITH 8 powder OUNCES OF LIQUID THEN TAKE BY MOUTH ONCE DAILY OR NEEDED omeprazole (PRILOSEC) 40 TK 1 C PO BID FOR 2 0 05/16/2020 mg capsule TO 4 WKS morphine (MS CONTIN) 60 mg Take 60 mg by mouth 0 12/30/2019 11/07/2020 CR tablet 2 times daily. tiotropium-olodateroL 2 puff(s) inhaled 0 04/09/2021 (STIOLTO RESPIMAT) 2.5-2.5 every 24 hours mcg/actuation inhaler metoclopramide HCl TAKE 1 TABLET BY 0 12/05/2019 04/09/2021 (REGLAN) 10 mg tablet MOUTH 30 MINUTES BEFORE MEALS meclizine (ANTIVERT) 25 mg 0 0 04/09/2021 tablet magnesium amino acid Take 54 mg by mouth 0 201904/09/2021 chelate 27 mg tablet 4 times daily. dexAMETHasone (DECADRON) 4 1 tab(s) orally 2 0 04/09/2021 mg tablet times a day after chemo added in this encounter
--- OUTSIDE RECORDS SUMMARY | 2022-02-21 01:07 | XMS_ITS | Encounter Summary ---
:1945 Author Organization [facility] Address [address] [place] [address] Care Team Providers Name Role Phone Soila Faustin Primary Care Provider Encounter Details Date Type Department Care Team Description 01/30/2020 Lab Requisition [facility] Center Outr Resulting Lab, Pathology & Laboratory Provider [facility] [address] [place] [address] Social History Tobacco Use Types [...] Date/Time Associated Diagnosis Comme nts COVID-19 TEST [facility] Today 01/30/2020 13:25 LAB PCR EDT COVID-19 TESTING Routine 01/30/2020 13:25 Results for this EDT procedure are i n the results section. documented in this encounter Results COVID-19 TEST [facility] PCR (01/30/2020 13:25 EDT) Specimen Swab - Entire nasopharynx (body structur e) Performing Organization Address City/State/ZIP Code Phon e Number [facility] [address] [place] [address] SERVICES COVID-19 TESTING (01/30/2020 13:25 EDT) COVID-19 rt-PCR Negative Negative [facility] MEDICAL Result Comment: [facility] Negative results do not prec lude 2019-nCoV infection and should not be used as the sole basis for treatment or other patient management decisions. Negative results must be combined with clinical observa SERVICES tions, patient history, and epidemiological informatio n. This test has not been FDA c leared or approved. This test has been authorized by FDA under an EUA for use by authorized laboratories. This test has been authorized only for detection of nucleic acid fro m 2019-nCoV, not for any oth er viruses or pathogens. This test is only authorized for the duration of the declaration that circumstances exist justifying the authorization of emergency use of in vitro d iagnostic tests for detectio n and/or diagnosis of 2019-nCoV under section 564(b)(1) of Act, 21 U.S.C ?? 360bbb-3(b) (1), unless the authorization is terminated or revoked sooner. Performed on the [employer] Fusion instrument Performing Lab [facility] Lab [facility] SERVICES Specimen Swab - Entire nasopharynx (body structur e) Performing Organization Address City/State/ZIP Code Phon e Number [facility] [address] [place] [address] SERVICES documented in this encounter Visit Diagnoses Not on filedocumented in this encounter Care Teams Supervisor Dimension Warehouse Relationship Specialty Start Date End Date Soila Faustin PCP - General Internal Medicine - Primary 02/06/20 [address] [place] [address] documented as of this encounter
--- OUTSIDE RECORDS SUMMARY | 2022-02-21 01:07 | XMS_ITS | Encounter Summary ---
:1945 Author Organization [facility] Address [address] [place] [address] Care Team Providers Name Role Phone Soila Faustin Primary Care Provider Encounter Details Date Type Department Care Team Description 09/05/2019 Lab Requisition [facility] Unknown, Provider, Pathology & Laboratory [facility] [address] [place] [address] [place] [address] Social History Tobacco Use Types Packs/Day Years [...] Name Priority Date/Time Associated Diagnosis Comme nts FOLATE Routine 09/05/2019 8:30 EST Results for this procedure are i n the results section . documented in this encounter Results FOLATE (09/05/2019 8:30 EST) Folate >24.0 See Note ng/mL [facility] Comment: LABORATORY SERVICES Reference Ranges for Folate: Deficient: ?< 3.4 ng/mL Indeterminate: ??3.4 - 5.4 ng/mL Normal: ? > 5.4 ng/mL The results of this assay ca n be falsely elevated due to the consumption of Biotin. Specimen Blood - Venous blood (substance) Performing Organization Address City/State/ZIP Code Phon e Number [facility] [address] [place] [address] SERVICES documented in this encounter Visit Diagnoses Not on filedocumented in this encounter Care Teams Technicians And Trades Workers Relationship Specialty Start Date End Date Soila Faustin PCP - General Internal Medicine - Primary 02/06/20 [address] [place] [address] documented as of this encounter
--- OUTSIDE RECORDS SUMMARY | 2022-02-21 01:07 | XMS_ITS | Encounter Summary ---
:1945 Author Organization [facility] Address [address] [place] [address] Care Team Providers Name Role Phone Soila Faustin Primary Care Provider Encounter Details Date Type Department Care Team Description 11/15/2020 Results Only Imaging [facility] - Mary Bella, [facility] Radiology Resul ts [address] [place] [address] [facility] [phone] [address] [place] [id number] (Wo rk) Social History Tobacco Use Types [...] Name Priority Date/Time Associated Diagnosis Comme nts PET CT EYE TO THIGH 11/15/2020 8:25 EST R esults for this procedure are i n the results section. documented in this encounter Results PET CT EYE TO THIGH (11/15/2020 8:25 EST) Specimen Narrative [facility] - 11/15/2020 8:25 EST ? EXAM: PET/CT SCAN/PET/CT SKULL BASE TO OH EX. D/ (0740) ? CLINICAL INFORMATION: ? 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 NEW LIVER LESION ? ON RECENT CT AT [facility]. ?METASTAS IS ? PET/CT SKULL BASE TO MID-THIGH ? Signs and Symptoms/Comments: ??C3 4.90 PRIMARY MALIGNANT NEOPLASM OF ? LUNG, UNSPECIFIED LATERALITY, RES TAGING METASTATIC LUNG CANCER. NEW ? LIVER LESION ON RECENT CT AT [facility]. ?METASTASIS ? Comparison: CT chest abdomen pelv is on 10/31/2020, 08/10/2020, ? 05/11/2020, 07/22/2018. ? Technique: 100 minutes following the IV injection of 19.08 mCi of ? [id number], PET imagi ng was performed from the skull base ? through the thighs with CT attenu ation correction. The blood glucose ? level prior to injection was 108 mg/dl. The injection site was the ? right wrist. ? FINDINGS: ? PET: ? NECK: No abnormal FDG uptake iden tified. ? CHEST: FDG avid subcarinal and le ft hilar lymph nodes are compatible ? with klaus metastatic disease. Bi lateral irregular/spiculated nodules ? are mildly FDG avid, also likely reflecting metastatic disease. A ? small right basilar pleural effus ion with a thickened rim is similar ? to recent comparisons and does no t demonstrate significant FDG ? uptake. ? ABDOMEN AND PELVIS: A new hypoden se lesion in the dome of the right ? hepatic lobe is markedly FDG avid , compatible with progressive ? metastatic disease (axial PET fus ion image 121). Multiple short ? segments of small bowel scattered throughout the abdomen demonstrate ? markedly elevated FDG uptake, an indeterminate finding. It is ? possible that this reflects acute enteritis, however multifocal ? metastatic disease cannot be enti rely excluded. That being said, no ? definite peritoneal nodularity wa s visible on the recent comparison ? diagnostic CT. No ascites is pres ent. No FDG avid abdominal or pelvic ? lymph nodes are identified. ? BONES: A few small foci of mild u ptake are favored to be ? degenerative. There is no convinc ing evidence of osseous metastatic ? disease. ? Dock Hand measurements as fo llows: ? * ??Background liver uptake: SUV max 2.2. ? * ??Subcarinal lymph node: SUV ma x 4.9. ? PAGE 1 ? Sonya d Report ? (CONTINUED) ? * ??Right upper lobe spiculated n odule: SUV max 2.9 (axial low-dose CT ? series 2 image 79). ? * ??Lingular lobulated nodule: RENEE V max 1.6 (axial low-dose CT image ? 114). ? * ??Left lower lobe spiculated ca vitary nodule: SUV max 1.4 (axial ? low-dose CT series 109). ? * ??Left lower lobe superior segm ent spiculated nodule: SUV max 2.7 ? (axial low-dose CT image 77). ? * ??New new lesion in the right h epatic dome: SUV max 14.2 (axial PET ? fusion image 121). ? * ??Multifocal short segment smal l bowel uptake: SUV max up to 20.0 ? (for example, axial PET fusion im ages 174, 200, 208). ? Accompanying low dose attenuation correction CT: Extensive calcified ? coronary and peripheral atheroscl erotic disease. 2.5 cm hypodense ? right thyroid nodule, without ass ociated FDG uptake (axial low-dose ? CT series 2 image 65). Left-sided chest port in satisfactory ? position. Chronic small right ple ural effusion with thickened ? partially calcified rim, but no s ignificant FDG uptake. Emphysema. ? Cholecystectomy clips. Chronic di ffuse biliary dilatation, perhaps ? reflecting prominent post cholecy stectomy changes. Multilevel spinal ? degenerative changes. ? IMPRESSION: ? 1. ??Progressive metastatic disea se. New solitary lesion in the right ? hepatic dome is markedly FDG avid , compatible with metastatic ? disease. ? 2. ??FDG avid subcarinal or left hilar lymph nodes, as well as ? bilateral lung nodules, also comp atible with metastatic disease. ? 3. ??Small right basilar pleural effusion with a thickened rim, ? similar to recent comparisons. No significant associated FDG uptake ? at this time. ? 4. ??Please see detailed findings above. ? REPORT SIGNED IN OTHER VENDOR SYSTEM 11/15/2020 ?Reported B y: Duncan Herrera MD ? CC: ? Transcribed Date/Time: 11/15/2020 (824) ? Dairy Associate: ? Printed Date/Time: 11/15/2020 (05 22) ? PAGE 2 ? Sonya d Report ? Procedure Note Duncan Herrera MD - 11/15/2020 EXAM: PET/CT SCAN/PET/CT SKULL BASE TO OH EX. D/ (0740) CLINICAL INFORMATION: C34.90 PRIMARY MALIGNANT NEOPLASM OF REINALDO NG UNSPECIFIED LATERALITY RESTAGING METASTATIC LUNG CANCER. NEW L IVER LESION ON RECENT CT AT [facility]. ?METASTASIS PET/CT SKULL BASE TO MID-THIGH Signs and Symptoms/Comments: C34.90 JALEN PATRICE MALIGNANT NEOPLASM OF LUNG, UNSPECIFIED LATERALITY, RESTAGING METASTATIC LUNG CANCER. NEW LIVER LESION ON RECENT CT AT [facility]. ?M ETASTASIS Comparison: CT chest abdomen pelvis on 10/31/2020, 08/10/2020, 05/11/2020, 07/22/2018. Technique: 100 minutes following the IV injection of 19.08 mCi of [id number], PET imaging was performed from the skull base through the thighs with CT attenuation correction. The blood glucose level prior to injection was 108 mg/dl. The injection site was the right wrist. FINDINGS: PET: NECK: No abnormal FDG uptake identified . CHEST: FDG avid subcarinal and left hil ar lymph nodes are compatible with klaus metastatic disease. Bilatera l irregular/spiculated nodules are mildly FDG avid, also likely reflec ting metastatic disease. A small right basilar pleural effusion wi th a thickened rim is similar to recent comparisons and does not demo nstrate significant FDG uptake. ABDOMEN AND PELVIS: A new hypodense les ion in the dome of the right hepatic lobe is markedly FDG avid, comp atible with progressive metastatic disease (axial PET fusion im age 121). Multiple short segments of small bowel scattered throu ghout the abdomen demonstrate markedly elevated FDG uptake, an indete rminate finding. It is possible that this reflects acute enter itis, however multifocal metastatic disease cannot be entirely e xcluded. That being said, no definite peritoneal nodularity was visi ble on the recent comparison diagnostic CT. No ascites is present. N o FDG avid abdominal or pelvic lymph nodes are identified. BONES: A few small foci of mild uptake are favored to be degenerative. There is no convincing ev idence of osseous metastatic disease. Dock Hand measurements as follows: * Background liver uptake: SUV max 2.2. * Subcarinal lymph node: SUV max 4.9. PAGE 1 Signed Report (CONTINUED) * Right upper lobe spiculated nodule: S UV max 2.9 (axial low-dose CT series 2 image 79). * Lingular lobulated nodule: SUV max 1. 6 (axial low-dose CT image 114). * Left lower lobe spiculated cavitary n odule: SUV max 1.4 (axial low-dose CT series 109). * Left lower lobe superior segment spic ulated nodule: SUV max 2.7 (axial low-dose CT image 77). * New new lesion in the right hepatic d ome: SUV max 14.2 (axial PET fusion image 121). * Multifocal short segment small bowel uptake: SUV max up to 20.0 (for example, axial PET fusion images 1 74, 200, 208). Accompanying low dose attenuation corre ction CT: Extensive calcified coronary and peripheral atherosclerotic disease. 2.5 cm hypodense right thyroid nodule, without associate d FDG uptake (axial low-dose CT series 2 image 65). Left-sided chest port in satisfactory position. Chronic small right pleural e ffusion with thickened partially calcified rim, but no signifi cant FDG uptake. Emphysema. Cholecystectomy clips. Chronic diffuse biliary dilatation, perhaps reflecting prominent post cholecystecto my changes. Multilevel spinal degenerative changes. IMPRESSION: 1. Progressive metastatic disease. New solitary lesion in the right hepatic dome is markedly FDG avid, comp atible with metastatic disease. 2. FDG avid subcarinal or left hilar ly mph nodes, as well as bilateral lung nodules, also compatible with metastatic disease. 3. Small right basilar pleural effusion with a thickened rim, similar to recent comparisons. No signi ficant associated FDG uptake at this time. 4. Please see detailed findings above. REPORT SIGNED IN OTHER VENDOR SYSTEM 11/15/2020 Reported By: Duncan Herrera MD CC: Transcribed Date/Time: 11/15/2020 (824 ) Dairy Associate: Printed Date/Time: 11/15/2020 (824) PAGE 2 Signed Report Performing Organization Address City/State/ZIP Code Phon e Number [facility] documented in this encounter Visit Diagnoses Not on filedocumented in this encounter Care Teams Culture Media Laboratory Assistant Relationship Specialty Start Date End Date Soila Faustin PCP - General Internal Medicine - Primary 02/06/20 [address] [place] [address] documented as of this encounter
--- OUTSIDE RECORDS SUMMARY | 2022-02-21 01:07 | XMS_ITS | Encounter Summary ---
:1945 Author Organization [facility] Address [address] [place] [address] Care Team Providers Name Role Phone Soila Faustin Primary Care Provider Reason for Visit Reason Onset Date Comments Orders (Non Pre-visit) 01/25/2021 PET scan order Encounter Details Date Type Department Care Team Description 01/25/[address] [facility] - Hardeep Bella Or ders (Non Pre-visit) [facility] Hematology & MD (PET scan order) Oncology [address] [facility], [address] [facility] [address] [place] [address] [address] [place] [address] Social History Tobacco Use Types Packs/Day Years Used Date Current Every Day Smoker Cigarettes 0.5 50 Smokeless Tobacco: Never Used Alcohol Use Standard Drinks/Week Comments No 0 (1 standard drink = 0.6 oz pure alcoho l) Sex Assigned at Date Recorded Not on file documented as of this encounter Miscellaneous Notes Telephone Encounter - Joann Bryan - 01/28/2021 1441 EDT Thank you. Telephone Encounter - Joann Bryan - 01/25/2021 1519 EDT PET scan form on Dr Bella's desk for completion. elephone Encounter - Ishaan Zhao RN - 01/25/2021 0915 EDT 01/25/21 9:15 PET order paced elephone Encounter - Joann Bryan - 01/25/2021 0904 EDT Tina from [facility] called, she said Dr Bella spoke with Orin and pt will need a PET scan scheduled for 01/29/21. Please add the PET scan order. documented in this encounter Plan of Treatment Not on filedocumented as of this encounter Visit Diagnoses Diagnosis Primary malignant neoplasm of lung, unsp ecified laterality (HCC-CMS) (HCC) - Primary documented in this encounter Care Teams Schedule Clerk Relationship Specialty Start Date End Date Soila Faustin PCP - General Internal Medicine - Primary 02/06/20 [address] [place] [address] documented as of this encounter
--- OUTSIDE RECORDS SUMMARY | 2022-02-21 01:07 | XMS_ITS | Encounter Summary ---
:1945 Author Organization [facility] Address [address] [place] [address] Care Team Providers Name Role Phone Soila Faustin Primary Care Provider Reason for Visit Reason Comments Follow-up Encounter Details Date Type Department Care Team Description 05/16/2020 Office Visit [facility] - Hardeep Bella, Pr imary malignant [facility] Adult Hematology neoplasm of lung, & Oncology [address], unspecified laterality [address] [place] [address] ([facility]) (Primary Dx) [address] [place] [address] [place] [phone] Social History Tobacco Use Types Packs/Day Years Used Date Current Every Day Smoker Cigarettes 0.5 50 Smokeless Tobacco: Never Used Alcohol Use Standard Drinks/Week Comments No 0 (1 standard drink = 0.6 oz pure alcoho l) Sex Assigned at Date Recorded Not on file documented as of this encounter Last Filed Vital Signs Vital Sign Reading Time Taken Comments Blood Pressure 152/72 05/16/2020 1344 EDT Pulse 74 05/16/2020 1344 EDT Temperature 37.3 ??C (99.2 ??F) 05/16/2020 1344 EDT Respiratory Rate - - Oxygen Saturation 95% 05/16/2020 1344 EDT on 2L O2 v ia NC Inhaled Oxygen Concentration - - Weight 69.9 kg (154 lb) 05/16/2020 1344 EDT Height - - Body Mass Index 26.03 04/06/2018 1208 EDT documented in this encounter Progress Notes Hardeep Bella MD - 05/16/2020 1400 EDT Images from the original note were not included. Patient Active Problem List Diagnosis ??? Malignant neoplasm of female breast ([facility]) 1997: Stage 1 Left ductal breast cancer - T1a,N0,M0,G1 - ER+/WI-. 0/12 node involvement. - Completed 5 years tamoxifen. ??? Primary malignant neoplasm of lung ([facility]) Problem 28 March 2018: Right non-small cell [...] 3.5 liters. Using 2liters during the day. Was able to taper prednisone to 1 mg. Continues on torsemide 40 mg daily. She continues to have nausea especially in the morning when she wakes up. Review of Systems: Review of Systems Constitutional: [...] change. Endo/Heme/Allergies: Negative. Psychiatric/Behavioral: Negative for depression. Family History Problem Relation Age of Onset ??? Stroke Mother ??? Heart Disease Father Social History Tobacco Use ??? Smoking status: Current Every Day Smoker Packs/day: 0.50 Years: 50.00 Pack years: 25.00 Types: Cigarettes ??? Smokeless tobacco: Never Used Substance Use Topics ??? Alcohol use: No ??? Drug use: No Current Outpatient Medications Medication ??? albuterol (PROAIR HFA) 90 mcg/actuation inhaler ??? amitriptyline (ELAVIL) 100 mg tablet ??? amLODIPine (NORVASC) 10 mg tablet ??? aspirin 81 mg EC tablet ??? atorvastatin (LIPITOR) 20 mg tablet [...] 10 mg tablet ??? morphine (MS CONTIN) 60 mg CR tablet ??? omeprazole (PRILOSEC) 20 mg capsule ??? ondansetron (ZOFRAN-ODT) 8 mg disintegrating tablet ??? predniSONE (DELTASONE) 10 mg tablet ??? prochlorperazine (COMPAZINE) 5 mg tablet ??? simvastatin (ZOCOR) 20 mg tablet ??? spironolactone (ALDACTONE) 25 mg tablet ??? tiotropium-olodateroL (STIOLTO RESPIMAT) 2.5-2.5 mcg/actuation inhaler ??? torsemide (DEMADEX) 20 mg tablet No current facility-administered medications for this visit. Vitals: 05/16/20 1344 BP: (!) 152/72 Pulse: 74 Temp: 37.3 ??C (99.2 ??F) SpO2: 95% Weight: 69.9 kg (154 lb) Wt Readings from Last 3 Encounters: 05/16/20 69.9 kg (154 lb) 02/07/20 69.9 kg (154 lb) 10/27/19 68 kg (150 lb) Physical Exam: Physical Exam Constitutional: She [...] about more than 50% of waking hours Imagin05/11/2020 Assessment & Plan 1. Metastatic non-small cell lung adenocarcinoma. PDL1 expression 91-100%. S/p carboplatin, paclitaxel,and bevacizumab x 5 cycles. Currently on maintenance bevacizumab, tolerating relatively well. Receiving this at [facility]. Reviewed CT images with the patient. Showed stable disease with no evidence of progression. The cavitary lesion in the left lower lobe appears stable. (High PDL1 expression. She was seen by [...] on 08/17/19 unremarkable. Continue antiemetics. Plan: 1. Proceed with maintenance bevacizumab 15 mg/kg [id number] at [facility]. 2. Continue to monitor proteinuria and blood pressure. 3. Return for follow-up in [address] scans prior. Hardeep Bella MD Hematology/Oncology [facility] Cc:Orin Schreiber APRN, Dr. Soila Faustin documented in this encounter Plan of Treatment Not on filedocumented as of this encounter Visit Diagnoses Diagnosis Primary malignant neoplasm of lung, unsp ecified laterality (HCC-CMS) (HCC) - Primary documented in this encounter Discontinued Medications Medication Sig Discontinue Reason Start Date End Date cholecalciferol, Vitamin 1 cap orally once 05/16/2020 D3, 1,000 unit tablet daily Cod Liver Oil Oil Take 1 Cap by mouth daily. D-METHORPHAN/PE/ACETAMINO Take by mouth as 05/16/2020 PHEN (VICKS DAYQUIL ORAL) needed. DM/P-EPHED/ACETAMINOPH/DO Take by mouth as 05/16/2020 XYLAM (NYQUIL ORAL) needed. losartan (COZAAR) 25 mg Take 25 mg by mouth 12/01/2019 05/16/2020 tablet daily. losartan (COZAAR) 50 mg TK 1 T PO D 11/18/201904/28 tablet potassium chloride SA Take 10 mEq by 04/28 (K-DUR, KLOR-CON M10) 10 mouth 2 times mEq tablet daily. polyethylene glycol TAKE 1 CAPFUL OF 01/04/202004/28 (GLYCOLAX) 17 gram/dose POWDER MIXED WITH 8 powder OUNCES OF LIQUID THEN TAKE BY MOUTH ONCE DAILY OR NEEDED omeprazole (PRILOSEC) 40 TK 1 C PO BID FOR 2 0 05/16/2020 mg capsule TO 4 WKS Vitamin B Comp & C No.4 1 tab(s) orally 0 05/16/2020 150 mg tablet once a day documented as of this encounter Care Teams Art History Instructor Relationship Specialty Start Date End Date Soila Faustin PCP - General Internal Medicine - Primary 02/06/[address] [place] [place] [id number] documented as of this encounter
--- OUTSIDE RECORDS SUMMARY | 2022-02-21 01:07 | XMS_ITS | Encounter Summary ---
:1945 Author Organization [facility] Address [address] [place] [address] Care Team Providers Name Role Phone Soila Faustin Primary Care Provider Reason for Visit Reason Comments Telemedicine Phone Call Encounter Details Date Type Department Care Team Description 02/11/2021 Telemedicine [facility] - Hardeep Bella Pr imary malignant [facility] Adult Hematology neoplasm of lung, & Oncology [address] [facility], unspecified laterality [address] [place] [facility] ([facility]) (Primary Dx) [address] [place] [address] [place] [phone] Social History Tobacco Use Types Packs/Day Years Used Date Current Every Day Smoker Cigarettes 0.5 50 Smokeless Tobacco: Never Used Alcohol Use Standard Drinks/Week Comments No 0 (1 standard drink = 0.6 oz pure alcoho l) Sex Assigned at Date Recorded Not on file documented as of this encounter Progress Notes Román Gutierrez MA - 02/11/2021 1630 EDT Patient rooming was completed remotely by ROMÁN GUTIERREZ MA in compliance with efforts to reduce exposure to COVID19. Patient pharmacy verified: Yes Patient insurance verified: Yes - recently got secondary insurance [facility]. I instructed patient to bring card with her at her next appointment in the network so we could get the information scanned into EPIC Verbal consent given by patient to continue with telemedicine visit: Yes 02/11/21 15:42 Hardeep Villa MD - 02/11/2021 1630 EDT Images from the original note were not included. [facility] Telephone Visit Verbal consent: The concept of ???Telemedicine?? has been described to the patient. Patient has been informed of the anticipated benefits and possible risks. Patient understands the information provided regarding telemedicine, has had the opportunity to ask questions about this information, and all questions have been answered to patient???s satisfaction. Patient consents for the use of telemedicine in his/her medical care and authorizes the transmission of any relevant medical information to providers and their staff involved in patient???s medical or mental health care. Verbal consent obtained by myself or auxiliary staff: yes. Patient Active Problem List Diagnosis ??? Malignant neoplasm of female breast ([facility]) 1997: Stage 1 Left ductal breast cancer - T1a,N0,M0,G1 - ER+/SC-. 0/12 node involvement. - Completed 5 years tamoxifen. ??? Primary malignant neoplasm of lung ([facility]) Problem 28 March 2018: Right non-small cell [...] no masses, no infarctions, no hemorrhage. - 11/7/18: Carbo/Taxol - 11/08/18: Switched to maintenance Bevacizumab -10/31/2020: CT scans showed possible progression. This was confirmed with a follow-up PET scan. Problem 2 2006: NSCLC T2N0 - 2006: Right lower lobectomy - Positive margins at visceral pleura - Adjuvant chemoradiation with carboplatin/taxol. Subjective Interim History: This is a televisit. Patient had a PET scan in the interim and this visit is primarily to discuss the results. States that she was not feeling well for some time as her unexpectedly last month and she is having issues with her stepson. States that her breathing is stable. Review of Systems: Review of Systems Constitutional: [...] ??? famotidine (PEPCID) 20 mg tablet ??? fluticasone propionate (FLOVENT HFA) 110 mcg/actuation inhaler ??? ipratropium-albuteroL (DUONEB) 0.5 mg-3 mg(2.5 mg base)/3 mL nebulizer solution ??? losartan (COZAAR) 100 mg tablet ??? magnesium amino acid chelate 27 mg tablet ??? Magnesium Gluconate 27 mg magnesium (500 mg) tablet ??? meclizine (ANTIVERT) 25 mg tablet ??? metoclopramide HCl (REGLAN) 10 mg tablet ??? morphine (MS CONTIN) 15 mg CR tablet ??? morphine (MS CONTIN) 30 mg CR tablet ??? mupirocin (BACTROBAN) 2 % ointment ??? nicotine (NICODERM CQ) 14 mg/24 hr patch ??? omeprazole (PRILOSEC) 20 mg capsule ??? ondansetron (ZOFRAN-ODT) 8 mg disintegrating tablet ??? polyethylene glycol (GLYCOLAX) 17 gram/dose powder ??? predniSONE (DELTASONE) 1 mg tablet ??? prochlorperazine (COMPAZINE) 5 mg tablet ??? simvastatin (ZOCOR) 20 mg tablet ??? spironolactone (ALDACTONE) 25 mg tablet ??? tiotropium-olodateroL (STIOLTO RESPIMAT) 2.5-2.5 mcg/actuation inhaler ??? torsemide (DEMADEX) 20 mg tablet No current facility-administered medications for this visit. There were no vitals filed for this visit. Wt Readings from Last 3 Encounters: 11/06/20 67.6 kg (149 lb) 08/16/20 68 kg (150 lb) 05/16/20 69.9 kg (154 lb) Physical Exam: Physical ExamECOG Performance Status:??2 - Ambulatory and capable of all self- care but unable to carry out any work activities, up and about more than 50% of waking hours Imagin02/05/21 Assessment & Plan 1. Metastatic non-small cell [...] bilateral lung nodules. Started treatment with pembrolizumab. Reviewed PET images independently and discussed the findings with the patient. Showed partial treatment response with decrease in FDG avid ET of the mediastinal adenopathy and right liver lesion. Majority of the pulmonary nodules also demonstrated partial therapeutic response. The right basilar pleural effusion with a thickened rim is stable compared to recent scans. No uptake within this area. I spoke with Orin at [facility] today and discussed the above. She is going to schedule the patient to continue the pembrolizumab infusions. 2. Chronic pain. Currently taking MS contin 60 mg q8hrs. 3. Nausea. Continues to be bothered by intermittent nausea, especially in the morning. MRI on 08/17/19 unremarkable. Continue antiemetics. Plan: 1. Continue pembrolizumab treatments. 2. Plan on CT scans after 3 cycles and follow-up appointment with me. Hardeep Bella MD Hematology/Oncology [facility] Patient initiated phone contact with the office: yes. Patient is an established patient (parent, guardian) yes. E/M provided within previous 7 days for same medical assessment: no Anticipate E/M service within 24hrs or next available urgent appointment no. This visit was conducted by telephone. ???A total of 25 minutes was spent on this encounter on the day of this encounter.?? Cc:Orin Schreiber APRN, Dr. Soila Faustin documented in this encounter Plan of Treatment Not on filedocumented as of this encounter Visit Diagnoses Diagnosis Primary malignant neoplasm of lung, unsp ecified laterality (HCC-CMS) (HCC) - Primary documented in this encounter Discontinued Medications Medication Sig Discontinue Reason Start Date End Date predniSONE (DELTASONE) 5 Take 5 mg by mouth 10/06/2020 02/11/2021 mg tablet daily. documented as of this encounter Historical Medications This list may reflect changes made after this encounter. Medication Sig Dispensed Refills Start Date End Date polyethylene glycol MIX 1 CAPFUL WITH 8 0 021 (GLYCOLAX) 17 gram/dose OUNCES OF LIQUID AND powder TAKE BY MOUTH ONCE DAILY OR NEEDED added in this encounter Care Teams Dish Carrier Relationship Specialty Start Date End Date Soila Faustin PCP - General Internal Medicine - Primary 02/06/20 [address] [place] [address] documented as of this encounter
--- OUTSIDE RECORDS SUMMARY | 2022-02-21 01:07 | XMS_ITS | Encounter Summary ---
:1945 Author Organization [facility] Address [address] [place] [address] Care Team Providers Name Role Phone Soila Faustin Primary Care Provider Reason for Visit Reason Comments Follow-up CT Scan Encounter Details Date Type Department Care Team Description 08/16/2020 Office Visit [facility] - Hardeep Bella, Pr imary malignant [facility] Adult Hematology neoplasm of lung, & Oncology [address] [facility], unspecified laterality [address], [place] [facility] ([facility]) (Primary Dx) [address] [place] [address] [place], [place] [phone] Social History Tobacco Use Types Packs/Day Years Used Date Current Every Day Smoker Cigarettes 0.5 50 Smokeless Tobacco: Never Used Alcohol Use Standard Drinks/Week Comments No 0 (1 standard drink = 0.6 oz pure alcoho l) Sex Assigned at Date Recorded Not on file documented as of this encounter Last Filed Vital Signs Vital Sign Reading Time Taken Comments Blood Pressure 144/72 08/16/2020 1505 EST Pulse 76 08/16/2020 1505 EST Temperature 36.6 ??C (97.9 ??F) 08/16/2020 1505 EST Respiratory Rate - - Oxygen Saturation 98% 08/16/2020 1505 EST on 2L Inhaled Oxygen Concentration - - Weight 68 kg (150 lb) 08/16/2020 1505 EST Height - - Body Mass Index 25.35 04/06/2018 1208 EDT documented in this encounter Progress Notes Hardeep Bella MD - 08/16/2020 1030 EST Due to computer system disruption, additional clinical information for this visit is Scanned Note. For patients, please refer to guidance in [employer] on how to locate information. Generally this information will appear as a scanned documents saved in My Documents activity. documented in this encounter Plan of Treatment Not on filedocumented as of this encounter Visit Diagnoses Diagnosis Primary malignant neoplasm of lung, unsp ecified laterality (HCC-CMS) (HCC) - Primary documented in this encounter Care Teams Scaffolding Helper Relationship Specialty Start Date End Date Soila Faustin PCP - General Internal Medicine - Primary 02/06/20 [address] [place] [address] documented as of this encounter
--- OUTSIDE RECORDS SUMMARY | 2022-02-21 01:07 | XMS_ITS | Encounter Summary ---
:1945 Author Organization [facility] Address [address] [place] [address] Care Team Providers Name Role Phone Unavailable Primary Care Provider Unavailable Reason for Visit Reason Onset Date Comments Other 10/24/2019 complete Encounter Details Date Type Department Care Team Description 10/24/2019 Telephone [facility] Hardeep Kelley MD Other (complete) Adult Hematology & [address] [facility], Oncology [facility] [address] [facility] [address] [place] [address] [place] [phone] (Wo rk) Social History Tobacco Use Types Packs/Day Years Used Date Current Every Day Smoker Cigarettes 0.5 50 Smokeless Tobacco: Never Used Alcohol Use Standard Drinks/Week Comments No 0 (1 standard drink = 0.6 oz pure alcoho l) Sex Assigned at Date Recorded Not on file documented as of this encounter Miscellaneous Notes Telephone Encounter - Gisel Zambrano - 12/15/2019 1406 EDT complete documented in this encounter Plan of Treatment Not on filedocumented as of this encounter Visit Diagnoses Not on filedocumented in this encounter
--- OUTSIDE RECORDS SUMMARY | 2022-02-21 01:07 | XMS_ITS | Encounter Summary ---
:1945 Author Organization [facility] Address [address] [place] [address] Care Team Providers Name Role Phone Soila Faustin Primary Care Provider Reason for Visit Reason Comments Follow-up CT Scan Encounter Details Date Type Department Care Team Description 02/07/2020 Office Visit [facility] - Hardeep Bella Pr imary malignant [facility] Adult Hematology neoplasm of lung, & Oncology [address], unspecified laterality [address] [place] [facility] ([facility]) (Primary Dx) [address] [place] [address] [place] [phone] Social History Tobacco Use Types Packs/Day Years Used Date Current Every Day Smoker Cigarettes 0.5 50 Smokeless Tobacco: Never Used Alcohol Use Standard Drinks/Week Comments No 0 (1 standard drink = 0.6 oz pure alcoho l) Sex Assigned at Date Recorded Not on file COVID-19 Exposure Response Date Recorded In the last month, have you been in contact with No / Unsure 02/07/2020 14:40 EDT someone who was confirmed or suspected to have Coronavirus / COVID-19? documented as of this encounter Last Filed Vital Signs Vital Sign Reading Time Taken Comments Blood Pressure 120/56 02/07/2020 1444 EDT Pulse 80 02/07/2020 1444 EDT Temperature - - Respiratory Rate - - Oxygen Saturation 91% 02/07/2020 1444 EDT Inhaled Oxygen Concentration - - Weight 69.9 kg (154 lb) 02/07/2020 1444 EDT Height - - Body Mass Index 26.03 04/06/2018 1208 EDT documented in this encounter Progress Notes Hardeep Bella MD - 02/07/2020 1500 EDT Images from the original note were not included. Patient Active Problem List Diagnosis ??? Malignant neoplasm of female breast ([facility]) 1997: Stage 1 Left ductal breast cancer - T1a,N0,M0,G1 - ER+/AR-. 0/12 node involvement. - Completed 5 years [...] #1 Carbo/Taxol - 11/08/18: Switched to maintenance Bevacizumab Problem 2 2006: NSCLC T2N0 - 2006: Right lower lobectomy - Positive margins at visceral pleura - Adjuvant chemoradiation with carboplatin/taxol. Subjective Interim History: Patient presents for follow-up. She presented to the ED x2 in the interim. Diagnosed with COPD and CHF exacerbation. Reports that she got short of breath and felt heavy in her abdomen and legs. Did not require an admission. Currently on prednisone 5 mg daily and torsemide 40 mg daily.This is being managed by her PCP. She got tested for COVID 19 twice and both were negative. She continues to have nausea especially in the morning when she wakes up. Has Home Health coming twice a week. Review of Systems: Review of Systems Constitutional: Negative for chills and fever. HENT: Negative for ear pain, sinus pain and sore throat. Eyes: Negative for pain and discharge. Respiratory: Positive for shortness of breath. Negative for cough and hemoptysis. Cardiovascular: Positive for leg swelling. Negative for chest pain and palpitations. Gastrointestinal: Positive for nausea. Negative for diarrhea and vomiting. Genitourinary: Negative [...] No ??? Drug use: No Current Outpatient Medications: albuterol (PROAIR HFA) 90 mcg/actuation inhaler amitriptyline (ELAVIL) 100 mg tablet amLODIPine (NORVASC) 10 mg tablet aspirin 81 mg EC tablet atorvastatin (LIPITOR) 20 mg tablet budesonide (PULMICORT) 0.5 mg/2 mL nebulizer suspension cetirizine (ZYRTEC) 10 mg tablet cholecalciferol, Vitamin D3, 1,000 unit tablet Cod Liver Oil Oil D-METHORPHAN/PE/ACETAMINOPHEN (VICKS DAYQUIL ORAL) dexAMETHasone (DECADRON) 4 mg tablet DM/P-EPHED/ACETAMINOPH/DOXYLAM (NYQUIL ORAL) DULoxetine (CYMBALTA) 60 mg capsule fluticasone propionate (FLOVENT HFA) 110 mcg/actuation inhaler ipratropium-albuteroL (DUONEB) 0.5 mg-3 mg(2.5 mg base)/3 mL nebulizer solution losartan (COZAAR) 100 mg tablet losartan (COZAAR) 25 mg tablet losartan (COZAAR) 50 mg tablet magnesium amino acid chelate 27 mg tablet meclizine (ANTIVERT) 25 mg tablet metoclopramide HCl (REGLAN) 10 mg tablet morphine (MS CONTIN) 60 mg CR tablet omeprazole (PRILOSEC) 20 mg capsule omeprazole (PRILOSEC) 40 mg capsule ondansetron (ZOFRAN-ODT) 8 mg disintegrating tablet polyethylene glycol (GLYCOLAX) 17 gram/dose powder potassium chloride SA (K-DUR, KLOR-CON M10) 10 mEq tablet predniSONE (DELTASONE) 10 mg tablet prochlorperazine (COMPAZINE) 5 mg tablet simvastatin (ZOCOR) 20 mg tablet spironolactone (ALDACTONE) 25 mg tablet tiotropium-olodateroL (STIOLTO RESPIMAT) 2.5-2.5 mcg/actuation inhaler torsemide (DEMADEX) 20 mg tablet Vitamin B Comp & C No.4 150 mg tablet No current facility-administered medications for this visit. No current facility-administered medications for this visit. Vitals: 02/07/20 1444 BP: 120/56 Pulse: 80 SpO2: 91% Weight: 69.9 kg (154 lb) Wt Readings from Last 3 Encounters: 02/07/20 69.9 kg (154 lb) 10/27/19 68 kg (150 lb) 11/23/13 67.6 kg (149 lb) Physical Exam: Physical Exam Constitutional: She is oriented to person, place, and time. Uses a cane, on home O2. HENT: Head: Normocephalic and atraumatic. Eyes: EOM are normal. Neck: Normal range of motion. Neck supple. Cardiovascular: Regular rhythm. Pulmonary/Chest: Effort normal and breath sounds normal. Abdominal: Soft. There is no tenderness. Neurological: She is alert and oriented to person, place, and time. Skin: Skin is warm and dry. She is not diaphoretic. Psychiatric: She has a normal mood and affect. ECOG Performance Status:??2 - Ambulatory and capable of all self-care but unable to carry out any work activities, up and about more than 50% of waking hours Assessment & Plan 1. Metastatic non-small cell lung adenocarcinoma. PDL1 expression 91-100%. S/p carboplatin, paclitaxel,and bevacizumab x 5 cycles. Currently on maintenance bevacizumab, tolerating relatively well. Receiving this at [facility]. Reviewed CT images and discussed findings with the patient. The cavitary lesion in the left lower lobe appears stable. There is no evidence of progression. (High PDL1 expression. She was seen by neurology recently and was determined that she less likely has MS. Will continue her on cytotoxic chemotherapy for now and reserve immunotherapy as an option in the future in case she has progression). 2. Vertigo. Improved with meclizine. Taking this only at night. 3. Chronic pain. Currently taking MS contin 60 mg q8hrs. 4. Nausea. Continues to be bothered by intermittent nausea, especially in the morning. MRI on 08/17/19 unremarkable. Recommended trying antiemetics on a scheduled basis, taking 1 tablet daily in the morning. Plan: 1. Proceed with maintenance bevacizumab 15 mg/kg h5serip at [facility]. 2. Continue to monitor proteinuria. 3. Return for follow-up in [address] scans prior. Other Orders Placed This Visit Procedures ??? CT ABDOMEN PELVIS W CONTRAST ??? CT CHEST W CONTRAST Hardeep Bella MD Hematology/Oncology [facility]/ Cc:Orin Schreiber APRN, Dr. Soila Faustin documented in this encounter Plan of Treatment Not on filedocumented as of this encounter Visit Diagnoses Diagnosis Primary malignant neoplasm of lung, unsp ecified laterality (HCC-CMS) (HCC) - Primary documented in this encounter Discontinued Medications Medication Sig Discontinue Reason Start Date End Date furosemide (LASIX) 40 mg Take 20 mg by mouth Alternate therapy 02/07/2020 tablet daily. documented as of this encounter Care Teams Auto Roller Relationship Specialty Start Date End Date Soila Faustin PCP - General Internal Medicine - Primary 02/06/20 [address] [place] [address] documented as of this encounter
--- OUTSIDE RECORDS SUMMARY | 2022-02-21 01:07 | XMS_ITS | Encounter Summary ---
:1945 Author Organization [facility] Address [address] [place] [address] Care Team Providers Name Role Phone Soila Faustin Primary Care Provider Reason for Visit Reason Onset Date Comments Other 02/21/2021 update Encounter Details Date Type Department Care Team Description 02/21/2021 Telephone [facility] Hardeep Kelley MD Other (update) Adult Hematology & O ncology [address] [facility] [address] [facility] [address] [facility] [address] [place] [address] [place] [address] (Wo rk) Social History Tobacco Use Types Packs/Day Years Used Date Current Every Day Smoker Cigarettes 0.5 50 Smokeless Tobacco: Never Used Alcohol Use Standard Drinks/Week Comments No 0 (1 standard drink = 0.6 oz pure alcoho l) Sex Assigned at Date Recorded Not on file documented as of this encounter Miscellaneous Notes Telephone Encounter - Joann Bryan - 02/21/2021 8214 EDT Orin from [facility] called to give you an update. She saw the pt yesterday (02/20/21) and discussed resuming Keytruda. The also talked about palliatiave care and at this point she is not having treatment.Orin also spoke to pt's PCP. Orin said you can call her on her cell to discuss and she can give you better and more details. Her cell [phone]. documented in this encounter Plan of Treatment Not on filedocumented as of this encounter Visit Diagnoses Not on filedocumented in this encounter Care Teams Mud Cleaner Operator Relationship Specialty Start Date End Date Soila Faustin PCP - General Internal Medicine - Primary 02/06/20 [address] [place] [address] documented as of this encounter
--- OUTSIDE RECORDS SUMMARY | 2022-02-21 01:07 | XMS_ITS | Encounter Summary ---
:1945 Author Organization [facility] Address [address] [place] [id number] Care Team Providers Name Role Phone Soila Faustin Primary Care Provider Reason for Visit Reason Comments Chemotherapy And Provider Visit CT Scan Encounter Details Date Type Department Care Team Description 08/13/2021 Telemedicine [facility] - Hardeep Bella Pr imary malignant neoplasm of lung, unspecified laterality (HCC-CMS) (HCC) (Primary Dx); [facility] Adult Hematology MD Liver metastases (HCC-CMS) (HCC) & Oncology 130 [facility], [address] [place] [address] [place] [address] [place] [phone] Social History Tobacco Use Types Packs/Day [...] EST Pulse 73 08/13/2021 1316 EST Temperature - - Respiratory Rate - - Oxygen Saturation 90% 08/13/2021 1316 EST Inhaled Oxygen Concentration - - Weight 71.6 kg (157 lb 12.8 oz) 08/13/2021 1316 EST Height - - Body Mass Index 26.67 04/06/2018 1208 EDT documented in this encounter Progress Notes Román Sevilla, DOMENIC - 08/13/2021 1400 EST Patient rooming was completed remotely by ROMÁN SEVILLA RN in compliance with efforts to reduce exposure to COVID19. Patient pharmacy verified: Yes Patient insurance verified: Yes Verbal consent given by patient to continue with telemedicine visit: Yes 08/13/21 13:19 Hardeep Khalil MD - 08/13/2021 1400 EST Images from the original note were not included. [facility] Telephone Visit Today's visit was provided via telephone audio only. The location of the patient: Home The location of the provider: Office Verbal consent: The concept of ???Telemedicine?? has [...] obtained by myself or auxiliary staff: yes. I have determined that an audio-only visit is appropriate due to: Patient request Patient Active Problem List Diagnosis ??? Malignant neoplasm of female breast ([facility]) 1997: Stage 1 Left ductal breast cancer - T1a,N0,M0,G1 - ER+/OK-. 0/12 node involvement. - Completed 5 years [...] carboplatin/taxol. Subjective Interim History: This is a telephone visit. Patient states that she is doing better. She was in the ER on the for shortness of breath. She was started on Lasix and also steroids for possible COPD exacerbation and she is doing better now. She is currently doing the steroid taper and will be back on prednisone 2.5 mg daily. Continues to use 2 L of supplemental oxygen which is her baseline. Denies any abdominal pain or diarrhea. Reports good appetite. Review of Systems: Review of Systems Constitutional: [...] ??? spironolactone (ALDACTONE) 25 mg tablet ??? tiotropium (SPIRIVA) 18 mcg inhalation capsule ??? torsemide (DEMADEX) 20 mg tablet ??? vit A/vit C/vit E/zinc/copper (PRESERVISION AREDS ORAL) No current facility-administered medications for this visit. Vitals: 08/13/21 1316 BP: 105/60 Pulse: 73 SpO2: 90% Weight: 71.6 kg (157 lb 12.8 oz) Wt Readings from Last 3 Encounters: 08/13/21 71.6 kg (157 lb 12.8 oz) 06/13/21 62.1 kg (137 lb) 04/09/21 62.6 kg (138 lb) Physical Exam: Physical Exam ECOG Performance Status:??2 - Ambulatory and capable [...] not to have any more interruptions. She had restaging scans in the interim. I was not able to review the images as I have not received them. Discussed the report findings with the patient. There is further interval decrease in size of the lesion in the posterior aspect of the left lobe of the liver. No evidence of any new disease in thechest, abdomen or pelvis. Chest findings remain stable. Let us see how 2. Chronic pain. Currently taking MS contin 45 mg q8hrs. Plan: 1. Continue pembrolizumab treatments. 2. Plan on CT scans after 3 cycles and follow-up appointment with me. Hardeep Bella MD Hematology/Oncology [facility] Cc:Orin Schreiber APRN, Dr. Soila Faustin Patient initiated phone contact with the office: yes. Patient is an established patient (parent, guardian) yes. E/M provided within previous 7 days for same medical assessment: no Anticipate E/M service within 24hrs or next available urgent appointment no. This visit was conducted by telephone. A total of 25 minutes was spent on this encounter on the day of this encounter. documented in this encounter Plan of Treatment Not on filedocumented as of this encounter Visit Diagnoses Diagnosis Primary malignant neoplasm of lung, unsp ecified laterality (HCC-CMS) (HCC) - Primary Liver metastases (HCC-CMS) (HCC) Secondary malignant neoplasm of liver documented in this encounter Historical Medications This list may reflect changes made after this encounter. Medication Sig Dispensed Refills Start Date End Date tiotropium (SPIRIVA) 18 Inhale 18 mcg as 0 mcg inhalation capsule directed daily. added in this encounter Care Teams Public Health Sanitarian Relationship Specialty Start Date End Date Soila Faustin PCP - General Internal Medicine - Primary 02/06/20 [address] [place] [address] documented as of this encounter
--- OUTSIDE RECORDS SUMMARY | 2022-02-21 01:07 | XMS_ITS | Encounter Summary ---
:1945 Author Organization [facility] Address [address] [place] [address] Care Team Providers Name Role Phone Soila Faustin Primary Care Provider Encounter Details Date Type Department Care Team Description 01/16/2020 Lab Requisition [facility] Clyde Hamm do, MD Encounter for observation for suspected exposure to other biological agents ruled out; Pathology & [address] [facility] Cough; Laboratory Medicine [place], [place] Fever , unspecified - [facility] [phone] [address] [facility] [place] [address] Social History Tobacco Use Types [...] as of this encounter Visit Diagnoses Diagnosis Encounter for observation for suspected exposure to other biological agents ruled out Cough Fever, unspecified documented in this encounter Care Teams Truck Chauffeur Relationship Specialty Start Date End Date Soila Faustin PCP - General Internal Medicine - Primary 02/06/20 [address] [place], [place] [id number] documented as of this encounter
--- OUTSIDE RECORDS SUMMARY | 2022-02-21 01:07 | XMS_ITS | Encounter Summary ---
:1945 Author Organization [facility] Address [address] [place] [address] Care Team Providers Name Role Phone Soila Faustin Primary Care Provider Reason for Visit Reason Onset Date Comments Other 03/07/2021 call/discussion Encounter Details Date Type Department Care Team Description 03/07/2021 Telephone [facility] - Hardeep Bella, Ot her (call/discussion) [facility] Adult Hematology & MD Oncology 130 [facility], [address] [place] [address]., [facility] [address] [place] [address] [address] [place] [address] Social History Tobacco Use Types Packs/Day Years Used Date Current Every Day Smoker Cigarettes 0.5 50 Smokeless Tobacco: Never Used Alcohol Use Standard Drinks/Week Comments No 0 (1 standard drink = 0.6 oz pure alcoho l) Sex Assigned at Date Recorded Not on file documented as of this encounter Miscellaneous Notes Telephone Encounter - Maura Dorantes RN - 03/07/[address] BELLA - Please call upon return to office. Thank you. elephone Encounter - Joann Bryan - 03/07/[address] Soila Webber called to discuss pt with Dr Bella. Dr Webber is aware that Dr Bella is notin the office this week and ok to have him call her next week. documented in this encounter Plan of Treatment Not on filedocumented as of this encounter Visit Diagnoses Not on filedocumented in this encounter Care Teams Perinatal Director Relationship Specialty Start Date End Date Soila Faustin PCP - General Internal Medicine - Primary 02/06/20 [address] [place] [address] documented as of this encounter
--- OUTSIDE RECORDS SUMMARY | 2022-02-21 01:07 | XMS_ITS | Encounter Summary ---
:1945 Author Organization [facility] Address [address] [place] [address] Care Team Providers Name Role Phone Soila Faustin Primary Care Provider Reason for Visit Reason Onset Date Comments Appointment Related 08/13/2021 Encounter Details Date Type Department Care Team Description 08/13/2021 Telephone [facility] - Hardeep Bella MD Appointment Related [facility] Adult Hematology & 130 [facility], Oncology [address] [facility] [address] [place] [address] [place], [place] [phone] (Wo rk) Social History Tobacco Use Types Packs/Day Years Used Date Current Every Day Smoker Cigarettes 0.5 50 Smokeless Tobacco: Never Used Alcohol Use Standard Drinks/Week Comments No 0 (1 standard drink = 0.6 oz pure alcoho l) Sex Assigned at Date Recorded Not on file documented as of this encounter Miscellaneous Notes Telephone Encounter - America Diane - 08/13/2021 1017 EST Patient is unable to make it in today for her visit with ET. Patient would like to make it a phone visit, is this ok with ET? documented in this encounter Plan of Treatment Not on filedocumented as of this encounter Visit Diagnoses Not on filedocumented in this encounter Care Teams Burial Needs Salesperson Relationship Specialty Start Date End Date Soila Faustin PCP - General Internal Medicine - Primary 02/06/[address] [place] [address] [facility] [place] [address] documented as of this encounter
--- OUTSIDE RECORDS SUMMARY | 2022-02-21 01:07 | XMS_ITS | Encounter Summary ---
:1945 Author Organization [facility] Address [address] [place] [address] Care Team Providers Name Role Phone Soila Faustin Primary Care Provider Reason for Visit Reason Onset Date Comments Nausea 06/14/2020 Encounter Details Date Type Department Care Team Description 06/14/2020 Telephone [facility] - [facility] Hardeep Kelley MD Nausea Adult Hematology & O ncology 130 [facility] [address] [place] [address] [facility] [address] [place], [place] [phone] [place] [phone] (Wo rk) Social History Tobacco Use Types Packs/Day Years Used Date Current Every Day Smoker Cigarettes 0.5 50 Smokeless Tobacco: Never Used Alcohol Use Standard Drinks/Week Comments No 0 (1 standard drink = 0.6 oz pure alcoho l) Sex Assigned at Date Recorded Not on file documented as of this encounter Miscellaneous Notes Telephone Encounter - Ishaan Zhao RN - 06/14/2020 7687 EDT Bette, nurse from [facility] called to report Madelin is complaining of nausea. She was prescribed Zofran BID, PRN, however insurance only allows for #20/month, which is not sufficient. She has been taking them once daily to ensure she has enough for the month, however this is not sufficient. Per 05/16/[address] Bella inidcated; 4. Nausea. Continues to be bothered by intermittent nausea, especially in the morning. MRI on 08/17/19 unremarkable. Continue antiemetics. 06/14/20 13:21 Called Orin Schreiber, NUTRITIONIST @ [facility], left a detailed message informing her of above. I advised Dr. Bella is out of the office until Thursday06/18/20 and inquired about her assisting. I asked that she call back to confirm she received this message. 06/14/20 14:15 Orin called back from [facility] and left a message confirming she received the vm. She states she willf/u with Madelin and discuss a plan for better nausea control. documented in this encounter Plan of Treatment Not on filedocumented as of this encounter Visit Diagnoses Not on filedocumented in this encounter Care Teams Professor Of Criminal Justice Relationship Specialty Start Date End Date Soila Faustin PCP - General Internal Medicine - Primary 02/06/20 [address] [place] [address] documented as of this encounter
--- OUTSIDE RECORDS SUMMARY | 2022-02-21 01:07 | XMS_ITS | Encounter Summary ---
:1945 Author Organization [facility] Address [address] [place] [address] Care Team Providers Name Role Phone Soila Faustin Primary Care Provider Encounter Details Date Type Department Care Team Description 02/05/2021 Results Only Imaging [facility] - Mary Bella, [facility] Radiology Resul ts [address] [place] [address] [facility] [phone] [address] [place] [phone] (Wo rk) Social History Tobacco Use Types [...] Comme nts PET CT EYE TO THIGH 02/05/2021 16:24 Resu lts for this EDT procedure are i n the results section. documented in this encounter Results PET CT EYE TO THIGH (02/05/2021 16:24 EDT) Specimen Narrative [facility] - 02/05/2021 16:24 EDT ? EXAM: PET/CT SCAN/PET/CT SKULL BASE MID T EX. D/ (1425) ? CLINICAL INFORMATION: ? C34.90 PRIMARY MALIGNANT NEOPLASM OF LUNG, ? UNSPECIFIED LATERALITY ? RESTAGING METASTATIC LUNG CANCER, R/O ? PROGRESSION. ? PET/CT SKULL BASE MID THIGH FU ? Signs and Symptoms/Comments: ??C3 4.90 PRIMARY MALIGNANT NEOPLASM OF ? LUNG, UNSPECIFIED LATERALITY, RES TAGING METASTATIC LUNG CANCER. R/O ? PROGRESSION. ? Comparison: PET on 11/13/2020. CT on 10/31/2020, 08/10/2020, 07/22/2018. ? Technique: 115 minutes following the IV injection of 17.79 mCi of ? [id number], PET imagi ng was performed from the skull base ? through the thighs with CT attenu ation correction. The blood glucose ? level prior to injection was 119 mg/dl. The injection site was the ? right wrist. ? FINDINGS: ? NECK: No abnormal uptake. ? CHEST: Subcarinal and left hilar lymph nodes demonstrate ? significantly reduced FDG uptake compared to October 2020, ? compatible with partial therapeut ic response. Bilateral ? irregular/spiculated nodules are again identified. The majority of ? these demonstrate mildly reduced FDG uptake compared to October ? 2020, compatible with partial julius atment response. However, a right ? upper lobe spiculated nodule demo nstrates mildly increased uptake ? (axial PET fusion image 77). A sm all right basilar pleural effusion ? with a thickened rim is similar t o recent comparisons and does not ? demonstrate significant FDG uptak e. ? ABDOMEN/PELVIS: A known metastati c lesion in the dome of the right ? hepatic lobe demonstrates signifi cantly reduced FDG uptake compared ? to October 2020, compatible with partial therapeutic response (axial ? PET fusion image 120 (axial PET f usion image 121). Multifocal uptake ? in the small bowel on the prior P ET has significantly improved, and ? may have been inflammatory rather than reflect metastatic disease. No ? ascites is present. No FDG avid a bdominal or pelvic lymph nodes are ? identified. ? BONES: There is no convincing PET evidence of osseous metastatic ? disease. ? Party Plan Sales Unit Advisor measurements as fo llows: ? * Background liver uptake: SUV ma x 2.0, compared to 2.2 in October ? 2020 ? * Subcarinal lymph node: SUV max 2.5, decreased from 4.9 in October ? PAGE 1 ? Sonya d Report ? (CONTINUED) ? 2020. ? * Right upper lobe spiculated nod ule: SUV max 3.5, mildly increased ? from 2.9 in October 2020 (axial low-dose CT series 2 image 77). ? * Lingular lobulated nodule: SUV max 1.2, decreased from 1.6 ? previously (axial low-dose CT garcia ge 115). ? * Left lower lobe spiculated cavi tary nodule: SUV max 0.9, decreased ? from 1.4 previously (axial low-do se CT series 116). ? * Left lower lobe superior segmen t spiculated nodule: SUV max 1.4, ? decreased from 2.7 previously (ax ial low-dose CT image 74). ? * Known right hepatic dome lesion : SUV max 2.4, markedly improved ? from 14.2 previously (axial PET f usion image 120). ? ACCOMPANYING LOW DOSE ATTENUATION CORRECTION CT: Extensive calcified ? coronary and peripheral atheroscl erotic disease. 2 cm hypodense right ? thyroid nodule, without associate d FDG uptake (axial low-dose CT ? series 2 image CAT 3). Left-sided chest port in satisfactory ? position. Chronic small right ple ural effusion with thickened ? partially calcified rim, but no s ignificant FDG uptake. Emphysema. ? Cholecystectomy clips. Chronic di ffuse biliary dilatation, perhaps ? reflecting prominent post cholecy stectomy changes. Multilevel spinal ? degenerative changes. ? IMPRESSION: ? 1. ??PARTIAL THERAPEUTIC RESPONSE . Mediastinal adenopathy and right ? liver lesion have significantly d ecreased in FDG avidity compared to ? October 2020. Majority of pulmon prema nodules also demonstrate partial ? therapeutic response. However, a right upper lobe spiculated nodule ? demonstrates mildly increased upt raya. Continued surveillance is ? warranted. ? 2. ??Small right basilar pleural effusion with a thickened rim, ? similar to recent comparisons. No significant associated FDG uptake. ? 3. ??Please see detailed findings above. ? REPORT SIGNED IN OTHER VENDOR SYSTEM 02/05/2021 ?Reported B y: Duncan Herrera MD ? CC: ? Transcribed Date/Time: 02/05/2021 (1624) ? Field Coordinator: ? Printed Date/Time: 02/05/2021 (16 24) ? PAGE 2 ? Sonya d Report ? Procedure Note Duncan Herrera MD - 02/05/2021 EXAM: PET/CT SCAN/PET/CT SKULL BASE MID T EX. D/ (1425) CLINICAL INFORMATION: C34.90 PRIMARY MALIGNANT NEOPLASM OF REINALDO NG, UNSPECIFIED LATERALITY RESTAGING METASTATIC LUNG CANCER, R/O PROGRESSION. PET/CT SKULL BASE MID THIGH FU Signs and Symptoms/Comments: C34.90 JALEN PATRICE MALIGNANT NEOPLASM OF LUNG, UNSPECIFIED LATERALITY, RESTAGING METASTATIC LUNG CANCER. R/O PROGRESSION. Comparison: PET on 11/13/2020. CT on 10/31, 08/10/2020, 07/22/2018. Technique: 115 minutes following the IV injection of 17.79 mCi of [id number], PET imaging was performed from the skull base through the thighs with CT attenuation correction. The blood glucose level prior to injection was 119 mg/dl. The injection site was the right wrist. FINDINGS: NECK: No abnormal uptake. CHEST: Subcarinal and left hilar lymph nodes demonstrate significantly reduced FDG uptake compar ed to October 2020, compatible with partial therapeutic res ponse. Bilateral irregular/spiculated nodules are again identified. The majority of these demonstrate mildly reduced FDG up take compared to October 2020, compatible with partial treatment response. However, a right upper lobe spiculated nodule demonstrat es mildly increased uptake (axial PET fusion image 77). A small ri ght basilar pleural effusion with a thickened rim is similar to rece nt comparisons and does not demonstrate significant FDG uptake. ABDOMEN/PELVIS: A known metastatic lesi on in the dome of the right hepatic lobe demonstrates significantly reduced FDG uptake compared to October 2020, compatible with parti al therapeutic response (axial PET fusion image 120 (axial PET fusion image 121). Multifocal uptake in the small bowel on the prior PET has significantly improved, and may have been inflammatory rather than reflect metastatic disease. No ascites is present. No FDG avid abdomin al or pelvic lymph nodes are identified. BONES: There is no convincing PET evide nce of osseous metastatic disease. Party Plan Sales Unit Advisor measurements as follows: * Background liver uptake: SUV max 2.0, compared to 2.2 in October 2020 * Subcarinal lymph node: SUV max 2.5, d ecreased from 4.9 in October PAGE 1 Signed Report (CONTINUED) 2020. * Right upper lobe spiculated nodule: S UV max 3.5, mildly increased from 2.9 in October 2020 (axial low-do se CT series 2 image 77). * Lingular lobulated nodule: SUV max 1. 2, decreased from 1.6 previously (axial low-dose CT image 115 ). * Left lower lobe spiculated cavitary n odule: SUV max 0.9, decreased from 1.4 previously (axial low-dose CT series 116). * Left lower lobe superior segment spic ulated nodule: SUV max 1.4, decreased from 2.7 previously (axial lo w-dose CT image 74). * Known right hepatic dome lesion: SUV max 2.4, markedly improved from 14.2 previously (axial PET fusion image 120). ACCOMPANYING LOW DOSE ATTENUATION CORRE CTION CT: Extensive calcified coronary and peripheral atherosclerotic disease. 2 cm hypodense right thyroid nodule, without associated FDG uptake (axial low-dose CT series 2 image CAT 3). Left-sided chest port in satisfactory position. Chronic small right pleural e ffusion with thickened partially calcified rim, but no signifi cant FDG uptake. Emphysema. Cholecystectomy clips. Chronic diffuse biliary dilatation, perhaps reflecting prominent post cholecystecto my changes. Multilevel spinal degenerative changes. IMPRESSION: 1. PARTIAL THERAPEUTIC RESPONSE. Medias tinal adenopathy and right liver lesion have significantly decreas ed in FDG avidity compared to October 2020. Majority of pulmonary no dules also demonstrate partial therapeutic response. However, a right upper lobe spiculated nodule demonstrates mildly increased uptake. C ontinued surveillance is warranted. 2. Small right basilar pleural effusion with a thickened rim, similar to recent comparisons. No signi ficant associated FDG uptake. 3. Please see detailed findings above. REPORT SIGNED IN OTHER VENDOR SYSTEM 02/05/2021 Reported By: Duncan Herrera MD CC: Transcribed Date/Time: 02/05/2021 (2919 ) Field Coordinator: Printed Date/Time: 02/05/2021 (3722) PAGE 2 Signed Report Performing Organization Address City/State/ZIP Code Phon e Number [facility] documented in this encounter Visit Diagnoses Not on filedocumented in this encounter Care Teams Power Brake Rebuilder Relationship Specialty Start Date End Date Soila Faustin PCP - General Internal Medicine - Primary 02/06/20 [address] [place] [address] documented as of this encounter
--- OUTSIDE RECORDS SUMMARY | 2022-02-21 01:07 | XMS_ITS | Encounter Summary ---
:1945 Author Organization [facility] Address [address] [place] [address] Care Team Providers Name Role Phone Soila Faustin Primary Care Provider Reason for Visit Reason Comments Follow-up CT Scan Encounter Details Date Type Department Care Team Description 11/29/2020 Telemedicine [facility] - Hardeep Bella Pr imary malignant [facility] Adult Hematology MD neoplasm of lung, & Oncology [address] [facility], unspecified laterality [address] [place] [facility] ([facility]) (Primary Dx) [address] [place] [address] [place], [place] [phone] Social History Tobacco Use Types Packs/Day Years Used Date Current Every Day Smoker Cigarettes 0.5 50 Smokeless Tobacco: Never Used Alcohol Use Standard Drinks/Week Comments No 0 (1 standard drink = 0.6 oz pure alcoho l) Sex Assigned at Date Recorded Not on file documented as of this encounter Progress Notes Román Sevilla RN - 11/29/2020 1630 EST Patient rooming was completed remotely by ROMÁN SEVILLA RN in compliance with efforts to reduce exposure to COVID19. Patient pharmacy verified: Yes Patient insurance verified: Yes Verbal consent given by patient to continue with telemedicine visit: Yes 11/29/20 14:12 Hardeep Khalil MD - 11/29/2020 1630 EST Images from the original note were not included. [facility] Telephone Visit Verbal consent: The concept of [...] Diagnosis ??? Malignant neoplasm of female breast (HCC-[facility]) 1997: Stage 1 Left ductal breast cancer - T1a,N0,M0,G1 - ER+/AR-. 012 node involvement. - Completed 5 years [...] History: Patient presents for follow-up. She had a PET scan in the interim. Denies any new complaints today. Review of Systems: Review of Systems Constitutional: [...] ??? predniSONE (DELTASONE) 1 mg tablet ??? predniSONE (DELTASONE) 5 mg tablet ??? prochlorperazine (COMPAZINE) 5 mg [...] kg (154 lb) Physical Exam: Physical Exam ECOG Performance Status:??2 - Ambulatory and capable of all self-care but unable to carry out any work activities, up and about more than 50% of waking hours Imagin11/13/20 Assessment & Plan 1. Metastatic non-small cell [...] nodes as well as bilateral lung nodules. Discussed treatment options with the patient. Recommended treatment with pembrolizumab immunotherapy. Explained to her that this is very different from chemotherapy and can be better tolerable. However, approximately 10% of patients can experience significant grade 3/4 toxicities and some of them might be life- threatening especially pneumonitis. Other side effects include but not limited to altered thyroid function, diarrhea, colitis, pancreatitis, hepatitis, nephritis, hypophysitis, skin rash and fatigue. There was a questionable diagnosis of multiple sclerosis in the past but she was evaluated byneurology and was due to mind that she unlikely has MS. 2. Vertigo. Improved with meclizine. Taking this only at night. 3. Chronic pain. Currently taking MS contin 60 mg q8hrs. 4. Nausea. Continues to be bothered by intermittent nausea, especially in the morning. MRI on 08/17/19 unremarkable. Continue antiemetics. Plan: 1. Obtain prior approval for pembrolizumab and start treatment within 2 weeks. Updated Orin with the plan. 2. I will see her in [address] scans prior. Hardeep Bella MD Hematology/Oncology [facility] Patient initiated phone contact with the office: yes. Patient is an established patient (parent, guardian) yes. E/M provided within previous 7 days for same medical assessment: no Anticipate E/M service within 24hrs or next available urgent appointment no. This visit was conducted by telephone. ???A total of 35 minutes was spent on this encounter on the day of this encounter.?? Cc:Orin Schreiber APRN, Dr. Soila Faustin documented in this encounter Plan of Treatment Not on filedocumented as of this encounter Visit Diagnoses Diagnosis Primary malignant neoplasm of lung, unsp ecified laterality (HCC-CMS) (HCC) - Primary documented in this encounter Discontinued Medications Medication Sig Discontinue Reason Start Date End Date morphine (MS IR) 15 mg Take 15 mg by mouth Duplicate order 11/28/2020 tablet every 4 hours as needed for Pain. Per pt: only taking once daily omeprazole (PRILOSEC) 40 Error 11/19/202012/2020 mg capsule documented as of this encounter Historical Medications This list may reflect changes made after this encounter. Medication Sig Dispensed Refills Start Date End Date morphine (MS CONTIN) 15 TAKE 1 TABLET BY MOUTH 0 10/30/2020 mg CR tablet ONCE DAILY IN THE MORNING nicotine (NICODERM CQ) APPLY 1 PATCH 0 10/27/2020 14 mg/24 hr patch EXTERNALLY ONCE DAILY TO HAIRLESS AREA ROTATING SKIN SITES mupirocin (BACTROBAN) 2 APPLY TO AFFECTED AREA 0 10/22/2020 % ointment TWICE DAILY FOR ONE WEEK OR UNTIL RESOLVED Magnesium Gluconate 27 TAKE 2 TABLETS BY 0 2020 mg magnesium (500 mg) MOUTH THREE TIMES tablet DAILY famotidine (PEPCID) 20 TAKE 1 TABLET BY MOUTH 0 1 11/08/2019 mg tablet TWICE DAILY FOR GERD predniSONE (DELTASONE) Take 5 mg by mouth 0 10/0602/11/2021 5 mg tablet daily. omeprazole (PRILOSEC) 0 11/19/202012/2020 40 mg capsule added in this encounter Care Teams Drainage Engineer Relationship Specialty Start Date End Date Soila Faustin PCP - General Internal Medicine - Primary 02/06/20 [address] [place] [address] documented as of this encounter
--- OUTSIDE RECORDS SUMMARY | 2022-02-21 01:07 | XMS_ITS | Encounter Summary ---
:1945 Author Organization [facility] Address [address] [place] [address] Care Team Providers Name Role Phone Unavailable Primary Care Provider Unavailable Reason for Referral Radiology Services (Routine) - Specialty Report Received Specialty Diagnoses / Procedures Referred By Contact Refer red To Contact Diagnoses Primary malignant neoplasm of lung, unspecified laterality (HCC-CMS) (HCC) Hardeep Bella MD [facility] Procedures CT CHEST W CONTRAST [address] [place], [place] [id number] [place] [phone] Referral ID Status Reason Start Date Expiration Date Visits V isits Requested Authorized [id number] Specialty 10/27/2019 1 1 Report Received aboratory Services (Routine) - New Request Specialty Diagnoses / Procedures Referred By Contact Refer red To Contact Diagnoses Primary malignant neoplasm of lung, unspecified laterality (HCC-CMS) (HCC) Edema, unspecified type Hardeep Bella MD Procedures PROTEIN, TOTAL, 24 HR, URINE 130 [facility] [address] [place] [phone] Referral ID Status Reason Start Date Expiration Date Visits V isits Requested Authorized [id number] New Request 10/27/2019 1 1 Reason for Visit Reason Comments Follow-up Encounter Details Date Type Department Care Team Description 10/27/2019 Office Visit [facility] - Hardeep Bella, Liz imary malignant neoplasm of lung, unspecified laterality (HCC-CMS) (Primary Dx); [facility] Adult Hematology Edema, unspecified type & Oncology [address], [address] [place] [facility] [address] [place] [address] [place] [phone] Social History Tobacco Use Types Packs/Day Years Used Date Current Every Day Smoker Cigarettes 0.5 50 Smokeless Tobacco: Never Used Alcohol Use Standard Drinks/Week Comments No 0 (1 standard drink = 0.6 oz pure alcoho l) Sex Assigned at Date Recorded Not on file documented as of this encounter Last Filed Vital Signs Vital Sign Reading Time Taken Comments Blood Pressure 164/80 10/27/2019 1117 EST Pulse 76 10/27/2019 1117 EST Temperature - - Respiratory Rate - - Oxygen Saturation 95% 10/27/2019 1117 EST Inhaled Oxygen Concentration - - Weight 68 kg (150 lb) 10/27/2019 1117 EST Height - - Body Mass Index 25.35 04/06/2018 1208 EDT documented in this encounter Progress Notes Hardeep Bella MD - 10/27/2019 1130 EST Patient Active Problem List Diagnosis ??? Malignant neoplasm of female breast (HCC-CMS) 1997: Stage 1 Left ductal breast cancer - T1a,N0,M0,G1 - ER+/MI-. 0/12 node involvement. - Completed 5 years [...] Subjective Interim History: Patient presents for follow-up. States that she was recently admitted at [facility] in July 2019 after presenting to the ED with shortness of breath, COPD exacerbation, and chronic hypoxic respiratory failure. Reports that her oxygen was 67%, had proteinuria, and lower extremity swelling. Is on 2-3 L oxygen support. Notes that her lower extremity swelling has improved, though has had this issue for awhile. Says that her legs have always been tender, especially when palpated. Mentions that her nausea has improved. States that her eating is good as she is on prednisone for COPD. Has Home Health coming twice a week. Due for her next treatment on Thursday at [facility] (10/31/19). Has an appointment with her PCP on 11/02/19. Review of Systems: Review of Systems Constitutional: [...] Alcohol use: No ??? Drug use: No Medication Sig ??? amitriptyline (ELAVIL) 100 mg tablet Take 100 mg by mouth at bedtime. ??? aspirin 81 mg EC tablet Take 81 mg by mouth daily. ??? AZITHROMYCIN ORAL Take 250 mg by mouth 2 tabs day #1 then 1 tab day #2 (started 11/22/13) . ??? b complex vitamins (VITAMIN B COMPLEX) capsule Take 1 Cap by mouth daily. ??? Cod Liver Oil Oil Take 1 Cap by mouth daily. ??? D-METHORPHAN/PE/ACETAMINOPHEN (VICKS DAYQUIL ORAL) Take by mouth as needed. ??? diclofenac sodium (VOLTAREN) 1 % Gel Apply topically 3 times daily. ??? DM/P-EPHED/ACETAMINOPH/DOXYLAM (NYQUIL ORAL) Take by mouth as needed. ??? DULoxetine (CYMBALTA) 60 mg capsule Take 60 mg by mouth daily. ??? furosemide (LASIX) 40 mg tablet Take 20 mg by mouth daily. ??? morphine (KARLOS) 30 mg ER capsule, pellets Take 30 mg by mouth 4 times daily. ??? omeprazole (PRILOSEC) 20 mg capsule Take 20 mg by mouth daily. ??? PEG 3350-Electrolytes (MIRALAX) 17 gram packet Take 34 g by mouth daily. ??? potassium chloride SA (K-DUR, KLOR-CON M10) 10 mEq tablet Take 10 mEq by mouth 2 times daily. ??? simvastatin (ZOCOR) 20 mg tablet Take 20 mg by mouth at bedtime. No current facility-administered medications for this visit. Vitals: 10/27/19 1117 BP: (!) 164/80 Pulse: 76 SpO2: 95% Weight: 68 kg (150 lb) Wt Readings from Last 3 Encounters: 10/27/19 68 kg (150 lb) 11/23/13 67.6 [...] bevacizumab, tolerating relatively well. Receiving this at [facility]. Recent CT c/a/p showed overall stable disease with no evidence of progression. Will repeat restagingscans in 3 months. (High PDL1 expression. She was seen by [...] Continues to be bothered by intermittent nausea, though has overall improved. MRI on 08/17/19 unremarkable. Continue current management prn. 5. ?Proteinuria. Will obtain a 24 hour urine test. Plan: 1. Proceed with maintenance bevacizumab 15 mg/kg s3exozo at [facility]. 2. Return for follow up in [address] scans prior. Addendum: Reviewed 24-hour urine protein results. Total protein 1.5 g. This is grade 2 proteinuria. Okay to continue bevacizumab with close monitoring. Obtain UA prior to each treatment. If urine dipstick greater than or equal to 2+, will need to obtain 24-hour urine analysis. Temporarily hold treatment if protein level is greater than 2 g. Other Orders Placed This Visit Procedures ??? CT CHEST W CONTRAST ??? CT ABDOMEN PELVIS W CONTRAST ??? Protein, Total, 24 hr, Urine Hardeep Bella MD Hematology/Oncology [facility] Cc:Orin Labow, CROSS [employer]IE TURNER Scribe attestation: By time stamping my name below, I attest that this documentation has been prepared under the direction and in the presence of the provider listed as the provider on this encounter, Olga Candelaria 10/27/19 14:01 documented in this encounter Plan of Treatment Scheduled Orders Name Type Priority Associated Diagnoses Order S chedule PROTEIN, TOTAL, 24 HR, Lab Routine Primary malignant Ordered: 10/27/2019 URINE neoplasm of lung, unspecified laterality (HCC-CMS) Edema, unspecified type CT CHEST W CONTRAST Imaging Routine Primary malignant Ord ered: 10/27/2019 neoplasm of lung, unspecified laterality (HCC-CMS) documented as of this encounter Visit Diagnoses Diagnosis Primary malignant neoplasm of lung, unsp ecified laterality (HCC-CMS) (HCC) - Primary Edema, unspecified type documented in this encounter
--- OUTSIDE RECORDS SUMMARY | 2022-02-21 01:08 | XMS_ITS | Encounter Summary ---
:1945 Author Organization [facility] Address [address] [place] [address] Care Team Providers Name Role Phone Unavailable Primary Care Provider Unavailable Encounter Details Date Type Department Care Team Description 04/29/2018 Results Only Imaging [facility] Sundeep Mendez is RUIZ Pimentel MD [phone] [facility] [address] [place] [address] (Wo rk) Social History Tobacco Use Types [...] Name Priority Date/Time Associated Diagnosis Comme nts NM PET CT EYE TO 04/29/2018 12:59 Results for this THIGH EDT procedure are i n the results section. documented in this encounter Results NM PET CT EYE TO THIGH (04/29/2018 12:59 EDT) Anatomical Region Laterality Modality Other Specimen Narrative [facility] - 04/29/2018 15:[address] EYE TO THIGH 04/29/2018 12:59 PM Signs and Symptoms: ??NEW LLL LUNG CA NM PET EYE TO THIGH ASSESS FOR METS Comparison: The chest CT obtained February 262017 Technique: Approximately 91 minutes following the I V injection of 9.02 mCi of F40-[id number], 3D TOF PET imagi ng was obtained from the skull base through the upper thighs. Att enuation correction was provided using a [employer] digital PET/CT dedicated closed ring PET / CT system. ??The blood glucos e level prior to injection was 85 mg/dl. ??The injection site was t he right forearm. The patient drank radiopaque oral contrast prior to the study. Findings: HEAD/NECK: Physiologic FDG uptake is identified in the brain and focal cords. A large hypodense lesion is identified in the right thyroid lobe, similar to prior. No cervical lymphadeno marysol identified. CHEST: There are several FDG avid lesions ident ified in the lungs. A groundglass lesion in the left upper lob e has mild FDG uptake, with a maximum SUV of 1.1 (image 162). A nodu le in the posterior left upper lobe has a max SUV of 6.4 (image # 61). A nodule in the posterior right upper lobe is mildly FDG avid with a max SUV of 2.7 (image #60). A small nodule in the lingu la (image #126) of the maximum SUV of 3.6. Mild diffuse uptake is noted along the posterior right visceral pleura, adjacent to a sma ll pleural effusion. Postsurgical changes are evident seconda ry to prior right lower lobectomy. A conglomerate of cystic stru ctures in the left lower lobe is unchanged from prior examination , and displayed only minimal FDG activity. There is enlargement of th e pulmonary arteries. There is calcification throughout the coronary arteries. The patient is status post bilateral mastectomies. ABDOMEN/PELVIS: No abnormal FDG uptake is identified in the abdomen/pelvis. There is mild intrahepatic biliary ductal dilatio n. The patient is post cholecystectomy. The spleen, pancreas, a drenal glands, kidneys, and stomach are without significant abnormal ity. There is no evidence of bowel obstruction. The uterus is surgica lly absent. No adnexal mass identified. The bladder is normal. MUSCULOSKELETAL: There is multilevel degenerative disc di sease. No suspicious osseous abnormality is identified. Impression: 1. ??Increased FDG uptake identified by several small lesions in the lungs. These include a groundglass lesio n in the left upper lobe, a small mass in the posterior left upper l obe, which was recently biopsied, a small nodule in the lingula, and a small nodule in the posterior right upper lobe. There is no evidence of klaus involvement or distant metastatic lesion s. 2. ??Small right pleural effusion with a djacent low level FDG activity in the visceral pleura. 3. ??Status post right lower lobectomy, bilateral mastectomy, cholecystectomy, and hysterectomy. I have personally reviewed the images an d the above interpretation and agree with the findings. Procedure Note Kunal Colindres MD - 04/29/[address] EYE TO THIGH 04/29/2018 12:59 PM Signs and Symptoms: NEW LLL LUNG CA NM P ET EYE TO THIGH ASSESS FOR METS Comparison: The chest CT obtained February 262017 Technique: Approximately 91 minutes following the I V injection of 9.02 mCi of H50-[id number], 3D TOF PET imagi ng was obtained from the skull base through the upper thighs. Att enuation correction was provided using a [employer] digital PET/CT dedicated closed ring PET / CT system. The blood glucose level prior to injection was 85 mg/dl. The injection site was the right forearm. The patient drank radiopaque oral contrast prior to the study. Findings: HEAD/NECK: Physiologic FDG uptake is identified in the brain and focal cords. A large hypodense lesion is identified in the right thyroid lobe, similar to prior. No cervical lymphadeno marysol identified. CHEST: There are several FDG avid lesions ident ified in the lungs. A groundglass lesion in the left upper lob e has mild FDG uptake, with a maximum SUV of 1.1 (image 162). A nodu le in the posterior left upper lobe has a max SUV of 6.4 (image # 61). A nodule in the posterior right upper lobe is mildly FDG avid with a max SUV of 2.7 (image #60). A small nodule in the lingu la (image #126) of the maximum SUV of 3.6. Mild diffuse uptake is noted along the posterior right visceral pleura, adjacent to a sma ll pleural effusion. Postsurgical changes are evident seconda ry to prior right lower lobectomy. A conglomerate of cystic stru ctures in the left lower lobe is unchanged from prior examination , and displayed only minimal FDG activity. There is enlargement of th e pulmonary arteries. There is calcification throughout the coronary arteries. The patient is status post bilateral mastectomies. ABDOMEN/PELVIS: No abnormal FDG uptake is identified in the abdomen/pelvis. There is mild intrahepatic biliary ductal dilatio n. The patient is post cholecystectomy. The spleen, pancreas, a drenal glands, kidneys, and stomach are without significant abnormal ity. There is no evidence of bowel obstruction. The uterus is surgica lly absent. No adnexal mass identified. The bladder is normal. MUSCULOSKELETAL: There is multilevel degenerative disc di sease. No suspicious osseous abnormality is identified. Impression: 1. Increased FDG uptake identified by se veral small lesions in the lungs. These include a groundglass lesio n in the left upper lobe, a small mass in the posterior left upper l obe, which was recently biopsied, a small nodule in the lingula, and a small nodule in the posterior right upper lobe. There is no evidence of klaus involvement or distant metastatic lesion s. 2. Small right pleural effusion with adj acent low level FDG activity in the visceral pleura. 3. Status post right lower lobectomy, bi lateral mastectomy, cholecystectomy, and hysterectomy. I have personally reviewed the images an d the above interpretation and agree with the findings. Performing Organization Address City/State/ZIP Code Phon e Number [facility] documented in this encounter Visit Diagnoses Not on filedocumented in this encounter
--- OUTSIDE RECORDS SUMMARY | 2022-02-21 01:08 | XMS_ITS | CCD ---
:1945 Author Care Team Providers Name Role Phone RADHA VANN, CLEOPATRA Gómez Attending Physician Unavailable Vital Signs Unknown or Not Available. Allergies Allergy Code Allergy Type Reaction Status PENICILLINS (CLASS) 0 Drug allergy pt doesn't know Activ e TETRACYCLINE 51642 Drug allergy Active Procedures Unknown or Not Available. History of Immunizations Unknown or Not Available. Problems Problem Code Start Date Resolved Date Status CHRONIC AIRWAY OBSTRUCTION 51675920 A ctive HX OF BRONCHOGENIC MALIGNANCY 747177507 Active MULTIPLE SCLEROSIS 90276828 Active Hyperemesis 145398873 Active HTN 65513716 Active Acute respiratory failure with hypoxia 15514167 Active COPD with exacerbation 422937830 Activ e Cancer of lung 74754441 Active Acute CHF 56660567 Active Hypertension 20063953 Active Near syncope 432343070 Active Dehydration 84529348 Active High troponin I level 791952001 Active Acute exacerbation of COPD 742366452 08/07/2021 A ctive Results COMPREHENSIVE METABOLIC PANEL (CMP) - Co llect Date/Time: 03/28/2021 10:05 Test Name Code Test Result Test Units Test Ref Range GLUCOSE 2345-7 144 mg/dL L=70 H=116 BUN 3094-0 27 mg/dL L=6 H=25 CREATININE 2160-0 0.88 mg/dL L=0.51 H=0.95 SODIUM SERUM 2951-2 137 mmol/L L=136 H=145 POTASSIUM SERUM 2823-3 4.3 mmol/L L=3.4 H=5.2 CHLORIDE SERUM 2075-0 100 mmol/L L=96 H=110 CARBON DIOXIDE (CO2) 2028-9 35 mmol/L L=22 H= 34 ANION GAP 17457-8 2.0 mmol/L CALCIUM SERUM 14633-5 9.7 mg/dL L=8.2 H=10.2 BILIRUBIN TOTAL 1975-2 0.4 mg/dL L=0.0 H=1.3 ALK. PHOS. 6768-6 155 U/L L=46 H=116 SGOT (AST) 1920-8 15 U/L L=15 H=37 SGPT (ALT) 1742-6 25 U/L L=12 H=78 TOTAL PROTEIN 2885-2 6.1 gm/dL L=6.0 H=8.0 ALBUMIN 1751-7 3.1 gm/dL L=3.4 H=5.0 AGE 75 years eGFR (non-Afr.Amer.) 08114-5 63 mL/min eGFR (Afr-Hungarian) 33687-9 76 mL/min MAGNESIUM SERUM - Collect Date/Time: 09/2020 10:05 Test Name Code Test Result Test Units Test Ref Range MAGNESIUM 42961-2 1.8 mg/dL L=1.8 H=2.4 TSH THYROID STIMULATING HORMONE - [facility] Date/Time: 03/28/2021 10:05 Test Name Code Test Result Test Units Test Ref Range TSH 3014-8 0.998 uIU/mL L=0.360 H=3.740 CBC W/ DIFFERENTIAL - Collect Date/Time: 03/28/2021 10:05 Test Name Code Test Result Test Units Test Ref Range WBC 6690-2 7.19 th/cmm L=5.00 H=10.00 NEUT % 80.8 % L=40.0 H=80.0 LYMPH % 9.3 % L=10.0 H=50.0 MONO % 15652-8 7.6 % L=2.0 H=12.0 EOS % 1.3 % L=0.0 H=8.0 BASO % 0.7 % L=0.0 H=3.0 IG % 2514-8 0.3 % L=0.0 H=1.1 NRBC % 15621-2 0.0 % L=0.0 H=0.0 NEUT abs count 751-8 5.8 th/cmm L=1.6 H=8.4 LYMPH abs count 731-0 0.7 th/cmm L=1.5 H=4.0 MONO abs count 742-7 0.6 th/cmm L=0.2 H=1.0 EOS abs count 711-2 0.1 th/cmm L=0.0 H=0.5 BASO abs count 704-7 0.1 th/cmm L=0.0 H=0.2 IG abs count 66856-8 0.0 th/cmm L=0.0 H=0.1 NRBC abs count 78993-4 0.0 mil/cmm L=0.0 H=0.0 RBC 789-8 3.86 mil/cmm L=3.90 H=5.40 HEMOGLOBIN 718-7 10.7 gm/dL L=12.0 H=16.0 HEMATOCRIT 4544-3 35 % L=37 H=47 MCV 787-2 91 fL L=82 H=92 MCH 785-6 27.7 pg L=27.0 H=31.0 MCHC 786-4 30.6 % L=32.0 H=36.0 RDW-SD 788-0 53.1 fL L=39.0 H=49.0 PLATELET COUNT 777-3 211 th/cmm L=150 H=450 Active Medications Medication Code Dose Units Frequency Route Modification Start Date/Time predniSONE 10MG 525182 1 TABLET DAILY ORAL 08/07/20 21 Oral Tablet 15:21 Prescription Detail TAKE 5 TABS ORAL FOR 2 DAYS, THEN 4 TABS FOR 2 DAYS, THEN 3 TABS FOR 2 DAYS, THEN 2 TABS FOR 2 DAYS, THEN 1 TAB FOR 2 DAYS Ipratropium 0766685 1 NEEDED INHALATION 021 15:20 [place]-Albuterol Sulfate FOUR TIMES A 0.5MG/3ML-3MG/3ML DAY Inhalation Solution Prescription Detail 1 INHALATION NEEDED FOUR TIMES A DAY FOR Difficulty Breathing Acetaminophen 325MG 445334 650 MILLIGRAMS NEEDED ORAL 06/28/2020 09:36 Oral Tablet EVERY 4 HOURS Prescription Detail TAKE 650 MILLIGRAMS ORAL NEEDED EVERY 4 HOURS Amitriptyline HCl 50MG 518751 50 MILLIGRAMS BEDTIME ORAL 06/28/2020 09:36 Oral Tablet Prescription Detail TAKE 50 MILLIGRAMS ORAL BEDT МАРИЯ Atorvastatin Calcium 682649 20 MILLIGRAMS EVERY EVENING ORAL 06/28/2020 09:36 20MG Oral Tablet Prescription Detail TAKE 20 MILLIGRAMS ORAL EVER Y EVENING Budesonide 0.5MG/2ML 480276 1 EACH DAILY INHALATION 06/28/2020 09:36 Inhalation Suspension Prescription Detail 1 EACH INHALATION DAILY Cetirizine 10MG Oral 3834943 10 MILLIGRAMS BEDTIME ORAL 06/28/2020 09:36 Tablet Prescription Detail TAKE 10 MILLIGRAMS ORAL BEDT МАРИЯ Famotidine 20MG 362697 20 MILLIGRAMS NEEDED TWICE ORAL 06/28/2020 09:36 Oral Tablet DAILY Prescription Detail TAKE 20 MILLIGRAMS ORAL N EEDED TWICE DAILY Ipratropium 6501012 1 EACH NEEDED INHALATION 020 09:36 [place]-Albuterol Sulfate 0.5MG/3ML-3MG/3ML Inhalation Solution Prescription Detail 1 EACH INHALATION NEEDED Lidocaine-Prilocaine 684878 1 EACH NEEDED TOPICAL 1 2.5%-2.5% Topical APPLICATION 09 :36 application Cream Prescription Detail 1 EACH TOPICAL APPLICATION NEEDED Losartan Potassium 100MG 974578 100 MILLIGRAMS DAILY ORAL 06/28/2020 09:36 Oral Tablet Prescription Detail TAKE 100 MILLIGRAMS ORAL PARRIS LY Magnesium 500 MG Oral 172177 2 TABLET THREE TIMES A DAY ORAL 06/28/2020 09:36 Tablet Prescription Detail TAKE 2 TABLET ORAL THREE CELSO ES A DAY Morphine Sulfate 60MG 435452 60 MILLIGRAMS TWICE A DAY ORAL 06/28/2020 09:36 Oral Capsule, Extended Release Prescription Detail TAKE 60 MILLIGRAMS ORAL TWIC E A DAY Narcan 4MG/0.1ML Nasal Conklin 4273647 1 EACH NEEDED NASAL 06/28/2020 09:36 Prescription Detail SPRAY 1 EACH NASAL NEEDED Omeprazole 40MG Oral 20021106 40 MILLIGRAMS DAILY ORAL 06/28/2020 09:36 Capsule, Delayed Release Prescription Detail TAKE 40 MILLIGRAMS ORAL BETTY Y Ondansetron 4MG Oral Tablet 159182 1 TABLET DAILY ORAL 06/28/2020 09:36 Prescription Detail TAKE 1 TABLET ORAL DAILY Polyethylene Glycol 26728342953 1 EACH NEEDED DAILY ORAL 06/28/2020 09:36 17GM/1Dose Oral Powder for Solution Prescription Detail TAKE 1 EACH ORAL NEEDED D AILY PreserVision Areds 2 NA 50861422327 2 CAPSULE DAILY ORAL 06/28/2020 09:36 Oral Capsule, Liquid Filled Prescription Detail TAKE 2 CAPSULE ORAL DAILY ProAir HFA 323659 2 PUFF NEEDED INHALATION 06/28/20 09:36 0.09MG/1Actuation THREE TIMES A Inhalation Suspension DAY Prescription Detail 2 PUFF INHALATION NEEDED THREE TIMES A DAY Pulmicort Flexhaler 158904 2 PUFF TWICE A DAY INHALATION 06/28/2020 09:36 90MCG/1Act Inhalation Powder Prescription Detail 2 PUFF INHALATION TWICE A D AY Spironolactone 25MG Oral 248705 25 MILLIGRAMS DAILY ORAL 06/28/2020 09:36 Tablet Prescription Detail TAKE 25 MILLIGRAMS ORAL BETTY Y Torsemide 20MG Oral Tablet 902375 1 TABLET DAILY ORAL 06/28/2020 09:36 Prescription Detail TAKE 1 TABLET ORAL DAILY Vitamin D3 553681 5251 INTERNATIONAL UNITS DAILY ORAL 1 09:36 1000IU Oral Tablet Prescription Detail TAKE 1000 INTERNATIONAL UNIT S ORAL DAILY Ondansetron 4MG Oral 290565 4 MILLIGRAMS BEFORE MEALS ORAL 06/28/2020 09:35 Tablet, Disintegrating Prescription Detail TAKE 4 MILLIGRAMS ORAL BEFOR E MEALS predniSONE 5MG Oral 565189 5 MILLIGRAMS DAILY WITH FOOD ORAL 06/28/2020 09:35 Tablet Prescription Detail TAKE 5 MILLIGRAMS ORAL DAILY WITH FOOD Refresh Ophthalmic 704703 1 EACH NEEDED OPTHALMIC 0 10/20/2019 12:16 Solution Prescription Detail 1 EACH OPTHALMIC NEEDED Avastin 25MG/1ML Intravenous 5423405 Z2UUSMT IVPB 10/20/2019 12:15 Solution Prescription Detail IVPB O2LYAHS Mapap 325MG Oral 723341 650 MILLIGRAMS NEEDED EVERY ORAL 10/20/2019 12:14 Tablet 4 HOURS Prescription Detail TAKE 650 MILLIGRAMS ORAL NEEDED EVERY 4 HOURS amLODIPine Besylate 10MG 693076 10 MILLIGRAMS DAILY ORAL 08/06/2019 11:13 Oral Tablet Prescription Detail TAKE 10 MILLIGRAMS ORAL BETTY Y Aspirin 81MG Oral Tablet, 113497 81 MILLIGRAMS DAILY ORAL 08/16/2018 10:22 Enteric Coated Prescription Detail TAKE 81 MILLIGRAMS ORAL BETTY Y Cymbalta 60MG Oral Capsule, 735901 60 MILLIGRAMS DAILY ORAL 08/16/2018 10:22 Delayed Release Prescription Detail TAKE 60 MILLIGRAMS ORAL BETTY Y Medications Administered During Visit Unknown or Not Available. Encounters Encounter Diagnosis Diagnosis Code Start Date Encounter for antineoplastic immunotherapy [id number] 03/28/2021 Social History Smoking Status Code Start Date End Date Current every day smoker 057107386 Patient Decision Aids Unknown or Not Available. Discharge Instructions You were admitted to on 03/28/2021 08:01 with a principal diagnosis of Encounter for antineoplasti c immunotherapy You had the following tests done: CBC W / DIFFERENTIAL COMPREHENSIVE METABOLIC PANEL (CMP) MAGNESIUM SERUM TSH THYROID STIMUL ATING HORMONE You were discharged from on 03/28/2021 08:01 Should you have any questions prior to d ischarge, please contact a member of your healthcare team. If you have left the ho spital and have any questions, please contact your primary care physician. Chief Complaint and Reason For Visit Unknown or Not Available. Function Status Unknown or Not Available. Plan of Care Unknown or Not Available. Referral/Transition of Care Unknown or Not Available.
--- OUTSIDE RECORDS SUMMARY | 2022-02-21 01:08 | XMS_ITS | Encounter Summary ---
:1945 Author Organization [facility] Address [address] [place] [address] Care Team Providers Name Role Phone Unavailable Primary Care Provider Unavailable Encounter Details Date Type Department Care Team Description 03/21/2003 Hospital Encounter [facility] Tomas Mendoza [facility] DO [address] [facility] [address] [place] [address] [place] [address] (Wo rk) Social History Tobacco Use Types Packs/Day Years Used Date Never Assessed Sex Assigned at Date Recorded Not on file documented as of this encounter Discharge Disposition Disposition Code Departure Means Destination Auto Discharge documented in this encounter Plan of Treatment Not on filedocumented as of this encounter Procedures Procedure Name Priority Date/Time Associated Diagnosis Comme nts MR HEAD W/WO Routine 03/21/2003 8:52 EDT Results for this CONTRAST procedure are i n the results section. documented in this encounter Results MR HEAD W/WO CONTRAST (03/21/2003 8:52 EDT) Anatomical Region Laterality Modality Other Specimen Narrative [facility] - 06/12/2009 3: 41 EDT 57 YEAR OLD FEMALE WITH MULTIPLE SCLEROSIS SUGGESTIVE AT [facility] (MEDICAR E PT/PASSED 340)R/O SMALL VESSEL DISEASE , WHITE MATTER LESIONS MRI BRAIN WITH AND WITHOUT CONTRAST 02/27 12/29 TECHNIQUE: We have a MR scan of the brai n done with sagittal T1, T2 axial FLAIR, T2 diffusion gradient and p re and post gadolinium T1 scans. FINDINGS: The post gadolinium scans show no definite enhancement. No mass lesions are identified. The diffusi on scans show no acute ischemic change and gradient scans show no hemorrhage. The T2 weighted FLAIR images show multip le periventricular high signal foci and subcortical high signal foci, w hich are non-specific, but markedly abnormal for a patient of this age. The distribution would be a bit atypical for multiple sclerosis in that the corpus callosum is not involved and there is relatively lit tle about the frontal horns. MS however is certainly not excluded. Th e findings, however, are not specific for small vessel disease and co rrelation clinically to exclude the possibilities of vasculitis, Lyme di sease, sarcoid, CADASIL as well as toxic exposure should be done. The ventr icles are normal in size. No other lesions. IMPRESSION: Markedly abnormal study for age with the distribution a bit atypical for multiple sclerosis. Dif ferential is as described above and further evaluation is suggeste d. No mass or acute lesion. D 03/21/03 T 03/22/03 /sridevi Procedure Note AlsofrJay etienne MD - 06/12/2009 57 YEAR OLD FEMALE WITH MULTIPLE SCLEROS IS SUGGESTIVE AT [facility] (MEDICAR E PT/PASSED 340)R/O SMALL VESSEL DISEASE , WHITE MATTER LESIONS MRI BRAIN WITH AND WITHOUT CONTRAST 02/27 12/29 TECHNIQUE: We have a MR scan of the brai n done with sagittal T1, T2 axial FLAIR, T2 diffusion gradient and p re and post gadolinium T1 scans. FINDINGS: The post gadolinium scans show no definite enhancement. No mass lesions are identified. The diffusi on scans show no acute ischemic change and gradient scans show no hemorrhage. The T2 weighted FLAIR images show multip le periventricular high signal foci and subcortical high signal foci, w hich are non-specific, but markedly abnormal for a patient of this age. The distribution would be a bit atypical for multiple sclerosis in that the corpus callosum is not involved and there is relatively lit tle about the frontal horns. MS however is certainly not excluded. Th e findings, however, are not specific for small vessel disease and co rrelation clinically to exclude the possibilities of vasculitis, Lyme di sease, sarcoid, CADASIL as well as toxic exposure should be done. The ventr icles are normal in size. No other lesions. IMPRESSION: Markedly abnormal study for age with the distribution a bit atypical for multiple sclerosis. Dif ferential is as described above and further evaluation is suggeste d. No mass or acute lesion. D 03/21/03 T 03/22/03 /jl Performing Organization Address City/State/ZIP Code Phon e Number [facility] [address] [facility] [address] [facility] [address] [place], [place] [address] documented in this encounter Visit Diagnoses Not on filedocumented in this encounter
--- OUTSIDE RECORDS SUMMARY | 2022-02-21 01:08 | XMS_ITS | Encounter Summary ---
:1945 Author Organization [facility] Address [address] [place] [address] Care Team Providers Name Role Phone Unavailable Primary Care Provider Unavailable Encounter Details Date Type Department Care Team Description 10/21/2006 Before [facility] - Juan Crabtree Converted Visit Maple conversion MD Raghav (Maple) [address] [facility] [address] [place], [place] [id number] [place] [address] [address], [address] [place] [address] (Wo rk) Social History Tobacco Use Types Packs/Day Years Used Date Never Assessed Sex Assigned at Date Recorded Not on file documented as of this encounter Progress Notes Juan Crabtree MD - 08/02/2009 0258 EST DIVISION OF CARDIOTHORACIC SURGERY PROGRESS/FOLLOWUP NOTE - 10/21/2006 Darvin Mendez M.D. [address] [place] [address], [address] [place] [address] Dear Darvin: Thank you for the opportunity to consult on Carly Arguelles regarding her right sided lung cancer.As you recall she is a 59-year-old female with a history of breast cancer diagnosed in January of 1998. In the spring she developed some right sided abdominal pain and a CAT scan was obtained whichincidentally showed a pulmonary nodule in the right lower lobe. This was biopsied in the spring and was non-diagnostic. Follow up CAT scan in July revealed a slightly increase in size of this rightlower lobe nodule. This was re-biopsied and is now consistent with an adenocarcinoma. Her PET scan is negative for metastaticdisease. Her pulmonary function test reveals an FEV1 of 2.06 which is 75% ofpredicted. Her past medical history is significant for breast cancer status post a mastectomy on the left side 8 years ago and status post mastectomy on the right side for a nodule that was picked up 2 years later. She is also status post an appendectomy, and JAIME/BSO. She has a history of carpal tunnel syndrome,multiple sclerosis and is able to ambulate on her own. She also has a history of tobacco use smokingfor approximately 50 years, 1.5 packs per day. She did quit smoking 3 months ago. Medications include Bupropion, Vytorin, Etodolac, Roxicet, Effexor, Potassium, Lotrel, Amitriptyline, Morphine, Pepcid and Glycolax. Today in the office I discussed with her and her the findings of the CAT scan. At this pointit appears that she has an earlier stage lung cancer limited to the right lower lobe. We discussed the option of a right thoracotomy and right lower lobectomy. We specifically discussed the risks and benefits of the surgery with specific risks discussed included bleeding, infection, prolonged air leak, and prolonged ventilation. We also discussed that if she were to have extensive emphysematous changes then we might perform a wedge resection rather than a lobectomy if I did not believe it was safe to proceed with a lobectomy. She understands all of this and wishes to proceed and will be scheduled for surgery on October. Thank you for the opportunity to take part in the care of this patient. If I can provide any furtherinformation, please do not hesitate to contact me. Sincerely, Signed by Juan Crabtree MD 12/23/2006 08:51 Cooper Barron MD Juan Crabtree MD - Juan Crabtree MD Tomas Vasquez ID: tape Document ID: [id number] cc: Darvin Mendez M.D* Jerry Jauregui M.D.* documented in this encounter Plan of Treatment Not on filedocumented as of this encounter Visit Diagnoses Not on filedocumented in this encounter
--- OUTSIDE RECORDS SUMMARY | 2022-02-21 01:08 | XMS_ITS | Encounter Summary ---
:1945 Author Organization [facility] Address [address] [place] [address] Care Team Providers Name Role Phone Unavailable Primary Care Provider Unavailable Encounter Details Date Type Department Care Team Description 06/26/2018 Hospital Encounter [facility] - Deric Mendez [facility] MD Margarito [address] [facility] [address] [place] [address] [address] [place] [phone] (Wo rk) Social History Tobacco Use Types Packs/Day Years Used Date Current Every Day Smoker Cigarettes 0.5 50 Smokeless Tobacco: Never Used Alcohol Use Standard Drinks/Week Comments No 0 (1 standard drink = 0.6 oz pure alcoho l) Sex Assigned at Date Recorded Not on file documented as of this encounter Discharge Diagnoses Diagnosis R41.3 Other amnesia-R41.3[ICD-10-CM] R41.0 Disorientation, unspecified-R41.0[ ICD-10-CM] C34.90 Malignant neoplasm of unspecified part of unspecified bronchus or lung-C34.90[ICD-10-CM] documented in this encounter Medications at Time of Discharge Medication Sig Dispensed Refills Start Date End Date amitriptyline (ELAVIL) Take 100 mg by mouth 0 100 mg tablet at bedtime. DULoxetine (CYMBALTA) 60 Take 60 mg by mouth 0 mg capsule daily. omeprazole (PRILOSEC) 20 Take 40 mg by mouth 0 mg capsule daily. aspirin 81 mg EC tablet Take 81 mg by mouth 0 11/06/2020 daily. AZITHROMYCIN ORAL Take 250 mg by mouth 0 01/27/2020 2 tabs day #1 then 1 tab day #2 (started 11/22/13) . b complex vitamins Take 1 Cap by mouth 0 01/27/2020 (VITAMIN B COMPLEX) daily. capsule Cod Liver Oil Oil Take 1 Cap by mouth 0 05/16/2020 daily. D-METHORPHAN/PE/ACETAMINO Take by mouth as 0 05/16/2020 PHEN (VICKS DAYQUIL ORAL) needed. diclofenac sodium Apply topically 3 0 01/27/2020 (VOLTAREN) 1 % Gel times daily. DM/P-EPHED/ACETAMINOPH/DO Take by mouth as 0 05/16/2020 XYLAM (NYQUIL ORAL) needed. furosemide (LASIX) 40 mg Take 20 mg by mouth 0 02/07/2020 tablet daily. morphine (KARLOS) 30 mg Take 30 mg by mouth 0 01/27/2020 ER capsule, pellets 4 times daily. PEG 3350-Electrolytes Take 34 g by mouth 0 01/27/2020 (MIRALAX) 17 gram packet daily. potassium chloride SA Take 10 mEq by mouth 0 05/16/2020 (K-DUR, KLOR-CON M10) 10 2 times daily. mEq tablet simvastatin (ZOCOR) 20 mg Take 20 mg by mouth 0 04/09/2021 tablet at bedtime. documented as of this encounter Discharge Disposition Disposition Code Departure Means Destination Auto Discharge Home documented in this encounter Plan of Treatment Not on filedocumented as of this encounter Visit Diagnoses Not on filedocumented in this encounter
--- OUTSIDE RECORDS SUMMARY | 2022-02-21 01:08 | XMS_ITS | Encounter Summary ---
:1945 Author Organization [facility] Address [address] [place] [address] Care Team Providers Name Role Phone Unavailable Primary Care Provider Unavailable Encounter Details Date Type Department Care Team Description 09/10/2006 Hospital Encounter [facility] Darvin Mendez Radiology - Main Abelardo Pimentel MD 111 [facility] [address] [place] [address] [address] [place] [address] (Wo rk) Social History Tobacco Use Types Packs/Day Years Used Date Never Assessed Sex Assigned at Date Recorded Not on file documented as of this encounter Discharge Disposition Disposition Code Departure Means Destination Home or Self Care documented in this encounter Plan of Treatment Not on filedocumented as of this encounter Procedures Procedure Name Priority Date/Time Associated Diagnosis Comme nts CT GUIDE 09/10/2006 10:20 Results for this BIOPSY/ASPIR/INJECT EST procedur e are in the results section. documented in this encounter Results CT GUIDE BIOPSY/ASPIR/INJECT (09/10/2006 10:20 EST) Anatomical Region Laterality Modality Other Specimen Narrative [facility] - 04/07/2009 4: [address] GUIDED RIGHT LOWER LOBE BIOPSY CT GUIDED BIOPSY OF THE LUNG: ??09/10/20 06 0905 CLINICAL HISTORY: ?Right lower lobe nodule. ??History of breast cancer. ??Patient is a former smoker. TECHNIQUE: ??After reviewing medications and pertinent medical history and explaining the benefits, risks, and alternatives of the procedure, informed written consent was obtained for the procedure and sedation. ??Risks described included pain, infection, bleeding, cough, hemoptysis, and pneumothorax whic h could possibly require a chest tube and admission to the hospital . A registered nurse administered IV fenta nyl and Versed to the patient for conscious sedation. ??Heart rate, bl ood pressure, oxygen saturation, and respiratory rate were mo nitored by the nurse. ??The patient was given supplemental oxygen as required. The patient was positioned prone, and a posterior right lower lobe nodule was visualized which corresponded to the previously seen nodule on CT. The needle insertion site was noted, and using a laser light, the skin site was marked. ??After marking, t he site was sterilely cleansed and sterile drapes were placed over the patient. Using CT scan guidance, a 19-gauge coaxi al needle was advanced into the soft tissues posteriorly after local anesthesia was obtained with buffered 2% lidocaine solution. ??After again noting proper position, the coaxial needle was advanced the jun phery of the nodule. Following this, two passes with a 22-gau ge Chiba needle using suction from a syringe for negative pressure wer e taken. ??A pathologist was on site for direct visualization of tiss ue sample for adequacy. Pathology determined an adequate sample had been obtained. ??The needles were removed, and a bandage was placed over the entry site. The patient was immediately placed in a supine position and was taken to postprocedure recovery. ??The patient had a repeat chest x-ray approximately 3 hours following the proc edure, and no significant pneumothorax was identified at that time . The patient tolerated the procedure well , and there were no immediate postprocedure complications. ??The patie nt was discharged home in good condition. Dr. Jacinto Martinez, the attending physici an, was present for the entire procedure. IMPRESSION: ??Successful right lower lob e lung nodule biopsy. T: ??09/11/2006 /festus I have personally reviewed the images an d the above interpretation and agree with the findings. Procedure Note Thomas Hernandez MD / Jacinto Martinez MD - 04/07/2009 CT GUIDED RIGHT LOWER LOBE BIOPSY CT GUIDED BIOPSY OF THE LUN09/10/2006 0905 CLINICAL HISTORY: Right lower lobe nodul e. History of breast cancer. Patient is a former smoker. TECHNIQUE: After reviewing medications a nd pertinent medical history and explaining the benefits, risks, and alternatives of the procedure, informed written consent was obtained for the procedure and sedation. Risks described included p ain, infection, bleeding, cough, hemoptysis, and pneumothorax whic h could possibly require a chest tube and admission to the hospital . A registered nurse administered IV fenta nyl and Versed to the patient for conscious sedation. Heart rate, bloo d pressure, oxygen saturation, and respiratory rate were mo nitored by the nurse. The patient was given supplemental oxygen as required. The patient was positioned prone, and a posterior right lower lobe nodule was visualized which corresponded to the previously seen nodule on CT. The needle insertion site was noted, and using a laser light, the skin site was marked. After marking, the site was sterilely cleansed and sterile drapes were placed over the patient. Using CT scan guidance, a 19-gauge coaxi al needle was advanced into the soft tissues posteriorly after local anesthesia was obtained with buffered 2% lidocaine solution. After ag ain noting proper position, the coaxial needle was advanced the jun phery of the nodule. Following this, two passes with a 22-gau ge Chiba needle using suction from a syringe for negative pressure wer e taken. A pathologist was on site for direct visualization of tiss ue sample for adequacy. Pathology determined an adequate sample had been obtained. The needles were removed, and a bandage was placed over the entry site. The patient was immediately placed in a supine position and was taken to postprocedure recovery. The patient h ad a repeat chest x-ray approximately 3 hours following the proc edure, and no significant pneumothorax was identified at that time . The patient tolerated the procedure well , and there were no immediate postprocedure complications. The patient was discharged home in good condition. Dr. Jacinto Martinez, the attending physici an, was present for the entire procedure. IMPRESSION: Successful right lower lobe lung nodule biopsy. /festus I have personally reviewed the images an d the above interpretation and agree with the findings. Performing Organization Address City/State/ZIP Code Phon e Number [facility] [address] [facility] [address] [facility] [address] [place], [place] [address] documented in this encounter Visit Diagnoses Not on filedocumented in this encounter
--- OUTSIDE RECORDS SUMMARY | 2022-02-21 01:08 | XMS_ITS | Encounter Summary ---
:1945 Author Organization [facility] Address [address] [place] [address] Care Team Providers Name Role Phone Unavailable Primary Care Provider Unavailable Encounter Details Date Type Department Care Team Description 01/02/2009 Before [facility] - Darvin Mendez Converted Visit Maple thompson Pimentel MD (Maple) [address] [address] [address] [place] [address] (Wo rk) Social History Tobacco Use Types Packs/Day Years Used Date Never Assessed Sex Assigned at Date Recorded Not on file documented as of this encounter Plan of Treatment Not on filedocumented as of this encounter Procedures Procedure Name Priority Date/Time Associated Diagnosis Comme nts TSH Routine 01/02/2009 10:20 EDT Results for this procedure are i n the results section . documented in this encounter Results TSH (01/02/2009 10:20 EDT) Pathologist Sig nature TSH 3.21 0.35 - 5.00 uIU/ml [facility] Specimen Performing Organization Address City/State/ZIP Code Phon e Number [facility] [address] [place] [address] SERVICES [facility] [address] [place] [address] documented in this encounter Visit Diagnoses Not on filedocumented in this encounter
--- OUTSIDE RECORDS SUMMARY | 2022-02-21 01:08 | XMS_ITS | Encounter Summary ---
:1945 Author Organization Health system Address [address] [place] [address] Care Team Providers Name Role Phone Jerry Jauregui MD Primary Care Provider Rene Walker MD Primary Care Provider Unavailable Soila Faustin Primary Care Provider Encounter Details Date Type Department Care Team Description 07/23/2007 Before [facility] - Felicitas Jauregui MD Converted Visit Maple conversion [address] (Maple) 111 [facility] [place] [address] [place] [id number] [place] [phone] Social History Tobacco Use Types Packs/Day Years Used Date Never Assessed Sex Assigned at Date Recorded Not on file documented as of this encounter Plan of Treatment Not on filedocumented as of this encounter Procedures Procedure Name Priority Date/Time Associated Diagnosis Comme nts ECHOCARDIOGRAM 07/23/2007 11:31 EDT Resul ts for this procedure are i n the results section . documented in this encounter Results ECHOCARDIOGRAM (07/23/2007 11:31 EDT) Specimen Narrative [facility] - 03/19/2009 2: 16 EDT X *[facility]* [address] [place], [place] [address] Interpreting Group: [facility] [address] [place] [id number] Height: ? 64 in ( 163 cm ) S/D Pressure: Patient status: Outpatient Weight: ? 191 lb ( 86.82 kg ) BSA: ?1.92 m^2 Referring MD: ??Jerry Jauregui MD Air Conditioning Installer Supervisor: ?? Yohana Dueñas Ordering MD: ?? Jerry Jauregui MD Attending MD: ??Jerry Jauregui MD Referring Physician: Darvin Mendez MD *STUDY CONCLUSIONS* SUMMARY - ??Overall left ventricular systolic fu nction was hyperdynamic. Left ventricular ejection fraction was estima wilmer in the range of 75 % to 80 %. *INDICATIONS AND HISTORY* DIAGNOSES SUPPORTING MEDICAL NECESSITY: Shortness of breath 786.05 HISTORY: H/o right lower lobectomy, bilateral mas tectomy. *PROCEDURE DATA* PROCEDURE INFORMATION: Patient just finished chemo and radiatio n treatments; needs clearance for colonoscopy. A transthoracic complete 2D study was performed. Additional evaluation included M-mode, complete spe ctral Doppler, and color Doppler. This was a routine echocardiographic jose dy. This study was interpreted by [facility]. The procedure was started at 11:30:00. The p rocedure ended at 12:00:00. HD11 Vertually no parasternal windows, and li mited apical views due to body habitus and lung interference. Patient h ad right lower lobectomy. *CARDIAC ANATOMY* LEFT VENTRICLE: - ??Left ventricular size was normal. - ??Overall left ventricular systolic fu nction was hyperdynamic. - ??Left ventricular ejection fraction w as estimated in the range of 75 % to 80 %. - ??Left ventricular wall thickness was normal. RIGHT VENTRICLE: - ??Right ventricular size was normal. - ??Right ventricular systolic function was normal. LEFT ATRIUM: - ??The left atrium was mildly dilated. RIGHT ATRIUM: - ??Right atrial size was normal. AORTIC VALVE: - ??The aortic valve was not well visual ized. Doppler interpretation(s): - ??There was no significant aortic valv e stenosis by color Doppler and spectral Doppler. - ??There was no significant aortic valv ular regurgitation by color Doppler. MITRAL VALVE: - ??There was mild mitral annular calcif ication. Doppler interpretation(s): - ??There was no significant mitral valv e stenosis by color Doppler and spectral Doppler. - ??There was no significant mitral valv ular regurgitation by color Doppler. PULMONIC VALVE: Doppler interpretation(s): - ??There was no significant pulmonic va lve stenosis by color Doppler and spectral Doppler. - ??There was no significant pulmonic re gurgitation by color Doppler. TRICUSPID VALVE: - ??The tricuspid valve was not well vis ualized. Doppler interpretation(s): - ??There was no significant tricuspid v alvular regurgitation by color Doppler. PERICARDIUM: - ??There was no significant pericardial effusion. AORTA: - ??The aorta was not well visualized. SYSTEMIC VEINS: - ??The inferior vena cava was normal. *MEASUREMENT TABLES* 2D measurements LEFT ATRIUM ? NORMAL LA area es ??21.5 ??cm^2 ??-- RIGHT ATRIUM ?NORMAL RA area ? 17 ?cm^2 ??-- Reviewed and signed by Tang Medellin MD Confirmed 23-Jul-2007 14:20:10 Procedure Note Tang Nazario MD - 03/19/2009 X *[facility]* [address] [place] [address] Interpreting Group: [place] [address] Height: 64 in ( 163 cm ) S/D Pressure: Patient status: Outpatient Weight: 191 lb ( 86.82 kg ) BSA: 1.92 m^2 Referring MD: Jerry Jauregui MD Air Conditioning Installer Supervisor: Yohana Dhillon MD: Jerry Jauregui MD Attending MD: Jerry Jauregui MD Referring Physician: Darvin Mendez MD *STUDY CONCLUSIONS* SUMMARY - Overall left ventricular systolic func tion was hyperdynamic. Left ventricular ejection fraction was estima wilmer in the range of 75 % to 80 %. *INDICATIONS AND HISTORY* DIAGNOSES SUPPORTING MEDICAL NECESSITY: Shortness of breath 786.05 HISTORY: H/o right lower lobectomy, bilateral mas tectomy. *PROCEDURE DATA* PROCEDURE INFORMATION: Patient just finished chemo and radiatio n treatments; needs clearance for colonoscopy. A transthoracic complete 2D study was performed. Additional evaluation included M-mode, complete spe ctral Doppler, and color Doppler. This was a routine echocardiographic jose dy. This study was interpreted by [facility] at [facility]. The procedure was started at 11:30:00. The p rocedure ended at 12:00:00. HD11 Vertually no parasternal windows, and li mited apical views due to body habitus and lung interference. Patient h ad right lower lobectomy. *CARDIAC ANATOMY* LEFT VENTRICLE: - Left ventricular size was normal. - Overall left ventricular systolic func tion was hyperdynamic. - Left ventricular ejection fraction was estimated in the range of 75 % to 80 %. - Left ventricular wall thickness was no rmal. RIGHT VENTRICLE: - Right ventricular size was normal. - Right ventricular systolic function wa s normal. LEFT ATRIUM: - The left atrium was mildly dilated. RIGHT ATRIUM: - Right atrial size was normal. AORTIC VALVE: - The aortic valve was not well visualiz ed. Doppler interpretation(s): - There was no significant aortic valve stenosis by color Doppler and spectral Doppler. - There was no significant aortic valvul ar regurgitation by color Doppler. MITRAL VALVE: - There was mild mitral annular calcific ation. Doppler interpretation(s): - There was no significant mitral valve stenosis by color Doppler and spectral Doppler. - There was no significant mitral valvul ar regurgitation by color Doppler. PULMONIC VALVE: Doppler interpretation(s): - There was no significant pulmonic valv e stenosis by color Doppler and spectral Doppler. - There was no significant pulmonic regu rgitation by color Doppler. TRICUSPID VALVE: - The tricuspid valve was not well visua lized. Doppler interpretation(s): - There was no significant tricuspid geraldine vular regurgitation by color Doppler. PERICARDIUM: - There was no significant pericardial e ffusion. AORTA: - The aorta was not well visualized. SYSTEMIC VEINS: - The inferior vena cava was normal. *MEASUREMENT TABLES* 2D measurements LEFT ATRIUM NORMAL LA area es 21.5 cm^2 -- RIGHT ATRIUM NORMAL RA area 17 cm^2 -- Reviewed and signed by Tang Medellin MD Confirmed 23-Jul-2007 14:20:10 Performing Organization Address City/State/ZIP Code Phon e Number [facility] 111 [facility] [place] [address] [facility] [address] [place], [place] [address] documented in this encounter Visit Diagnoses Not on filedocumented in this encounter Care Teams Cathode Maker Relationship Specialty Start Date End Date Jerry Jauregui MD PCP - General 02/20/13 11/21/[address] [place] [place] [address] Rene Walker MD PCP - General 11/22/1303/31/18 Soila Faustin PCP - General Internal Medicine - 02/06/20 4 [facility] [place] [address] documented as of this encounter
--- OUTSIDE RECORDS SUMMARY | 2022-02-21 01:08 | XMS_ITS | Encounter Summary ---
:1945 Author Organization [facility] Address [address] [place] [address] Care Team Providers Name Role Phone Unavailable Primary Care Provider Unavailable Encounter Details Date Type Department Care Team Description 09/10/2006 Results Only [facility] Toby Martinez MD Interventional Radiology - [address] [phone] (Wo rk) Social History Tobacco Use Types Packs/Day Years Used Date Never Assessed Sex Assigned at Date Recorded Not on file documented as of this encounter Plan of Treatment Not on filedocumented as of this encounter Procedures Procedure Name Priority Date/Time Associated Diagnosis Comme nts CYTOPATHOLOGY Routine 09/10/2006 0:00 EST Results for this procedure are i n the results section . documented in this encounter Results CYTOPATHOLOGY (09/10/2006 0:00 EST) Pathology CYTOPATHOLOGY REPORT [facility] Report: LAB Reports generated via electronic interface contain lulu ginal data; however they are lacking the format of the original re port. Caution should be taken when reading/interpreting unfo rmatted reports. Name: ? CARLY ALVARADO ? Accession #: ? [id number] : ? 1945 (Age: 61) ??F ?Collect Date: ? 08/28 Location: ? RAD ? Receive Date: ? 09/10/2006 Provider: ? JANUARY MARTINEZ MD Copy to: ?DARVIN MENDEZ MD ? Fine Needle Aspiratio n/Core Biopsy (Assisted) ? Radiology Department, [place] [address] ([facility]) ? Addendum ? Date Ordered: ? 09/18/2006 ? Status: Si gned Out ? Date Complete: ? 09/18/2006 ? By: Estrella Olsen ? Date Reported: ? 09/18/2006 ? Addendum Comment ? This addendum is issu ed to report the results of the EGFR (2-18C9, Dako). The malignant cells are nega tive for EGFR. ??The diagnosis is NOT changed. ??(Dr. Rodriguez)/kmkelechi ? NOTE: ??One or more of the reagents used in immunohistochemical testing in this case may not have been cleared or approved by the U.S. Food and Drug Administration (FDA). ??The FDA has determined that such clearance or approval is not necessary. ??These tests are used for clinical purposes. ??They should not be regarded as investigational or for research. ??These r eagents' ??performance characteristics have been determined by [facility]. ??This laboratory is certified unde r the Clinical Laboratory Improvement Amendments of 1988 (CLIA-88) as qualified to perform high complexity clinical laboratory testing. ?? Document reviewed and electronically signed by: ? GLADWYN LEIMAN MD [facility] ? Report date: 09/18/2006 By the signature above, the attending physician certif ies that he/she has personally conducted a gross and/or microscopic examin ation of the described specimens and rendered or confirmed the above diagnosi s. CYTOLOGIC DIAGNOSIS: ? Lung, right lower lobe, fine needle aspiration: - Non-small cell carcinoma, mucinous adenocarcinoma. ? ?See comment. ? COMMENT: ? In a background of abundant fibrillary mucin, c lusters of malignant epithelial cells of glandular type are seen closely ad mixed with pulmonary pneumocytes. ??The cells are arranged in rounded clust ers, and demonstrate intracytoplasmic mucin. 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 ??Result given to Dr. Martinez on site and telephoned through to Dr. Darvin Mendez on 09/10/06 at 3:10 p.m. ??Dr. Mendez requests than an EGF R be performed. This will be done and reported on an addendum. ??(Dr. Chaudhary)/[facility] Document reviewed and electronically signed by: ? KEESHA CHAUDHARY MD [facility] Report Date: ??09/10/2006 17:02 By the signature above, the attending physician certif ies that he/she has personally conducted a gross and/or microscopic examin ation of the described specimens and rendered or confirmed the above diagnosi s. Specimen Type: ? Lung, Fine Needle Aspiration, RLL Clinical History: ? Enlarging, increasing density right lower lobe nodule. ??Prior non-diagnostic FNA 01/31. ??R/O CA; Clinical diagnosis code: 518.89 ? Rapid Interpretation: ? Passes 1 & 2: ??Malignant cells, adenocarcinoma , mucinous type with pneumocytes + and mucus ++. (Mandy Paniagua, [facility]), Dr. Keesha Chaudhary; 09/10). Gross Description: ? 3 fixed prepared slid es and 1 tube of Cytolyt were received and processed by selective cellular enhancement technique. ? End of Report Specimen Performing Organization Address City/State/ZIP Code Phon e Number [facility] [address] [place] [address] SERVICES [facility] [address] [place] [address] documented in this encounter Visit Diagnoses Not on filedocumented in this encounter
--- OUTSIDE RECORDS SUMMARY | 2022-02-21 01:08 | XMS_ITS | Encounter Summary ---
:1945 Author Organization [facility] Address [address] [place] [address] Care Team Providers Name Role Phone Unavailable Primary Care Provider Unavailable Encounter Details Date Type Department Care Team Description 03/16/2007 Results Only [facility] - Elaine Gupta NP conversion [address] [place] 111 [facility] [address] [place] [address] [place] [address] (Wo rk) Social History Tobacco Use Types Packs/Day Years Used Date Never Assessed Sex Assigned at Date Recorded Not on file documented as of this encounter Plan of Treatment Not on filedocumented as of this encounter Procedures Procedure Name Priority Date/Time Associated Diagnosis Comme nts IBC Routine 03/16/2007 10:30 EDT Results for this procedure are i n the results section . IRON Routine 03/16/2007 10:30 EDT Results for this procedure are i n the results section . FERRITIN Routine 03/16/2007 10:30 EDT Results for this procedure are i n the results section . documented in this encounter Results (ABNORMAL) IRON (03/16/2007 10:30 EDT) Pathologist Sig nature Iron 43 (L) 60 - 180 ug/dl [facility] Specimen Performing Organization Address City/State/ZIP Code Phon e Number [facility] [address] [place] [address] SERVICES [facility] [address] [place] [address] IBC (03/16/2007 10:30 EDT) Pathologist Sig nature TIBC 283Comment: Note new 265 - 497 ug/dl [facility] LA B method and reference range as of 07/29/06 Specimen Performing Organization Address City/State/ZIP Code Phon e Number [facility] [address] [place] [address] SERVICES [facility] [address] [place] [address] FERRITIN (03/16/2007 10:30 EDT) Pathologist Sig nature Ferritin 131 10 - 291 ng/mL [facility] Specimen Performing Organization Address City/[facility]/ZIP Code Phon e Number [facility] [address] [place] [address] SERVICES [facility] [address] [place] [address] documented in this encounter Visit Diagnoses Not on filedocumented in this encounter
--- OUTSIDE RECORDS SUMMARY | 2022-02-21 01:08 | XMS_ITS | Encounter Summary ---
:1945 Author Organization [facility] Address [address] [place] [address] Care Team Providers Name Role Phone Unavailable Primary Care Provider Unavailable Encounter Details Date Type Department Care Team Description 06/26/2018 Results Only Imaging [facility]- Sundeep Mendez MD [phone] [address] [facility] [address] [place] [address] (Wo rk) Social History Tobacco [...] Associated Diagnosis Comme nts MR HEAD W/WO 06/26/2018 12:26 Results for this CONTRAST EDT procedure are i n the results section. documented in this encounter Results MR HEAD W/WO CONTRAST (06/26/2018 12:26 EDT) Anatomical Region Laterality Modality Other Specimen Narrative [facility] - 06/26/2018 14:22 EDT MRI BRAIN WITHOUT AND WITH CONTRAST HISTORY: Lung cancer, memory loss, inter mittent confusion. TECHNIQUE: MRI of the brain without and with intravenous gadolinium contrast. COMPARISON: Brain MRIs 03/21/2003 and 03/28. FINDINGS: Many sequences are limited due to motion artifacts, including the high resolution, 3-D postcontrast T1 seq uence is limited due to motion artifacts. Within the limitations of the examination, there is no evidence of infarct, intracranial hemorrhage, or mass lesion. There is diffuse parenchymal volume loss , perhaps mild in severity. The ventricles, cisterns, and sulci are otherwise normal in size and configuration. There is no midline shift or extra-axial collection. There are extensive confluent and scatte red foci of T2/FLAIR hyperintensity in the periventricular an d subcortical white matter, likely the sequelae of chronic microangi opathic disease. The brain parenchyma demonstrates no other signifi cant abnormality. The flow voids of the major intracranial vasculature are present. Scattered mural thickening is present in the paranasal sinuses and ethmoid air cells. The bones and extracr anial soft tissues are otherwise unremarkable. There is patchy apparent enhancement in the upper clivus which is felt to reflect ar tifact. IMPRESSION: Within the limitations of the examinatio n, no infarct, intracranial hemorrhage, or mass lesion. 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 Procedure Note Maksim Ryder MD - 06/26/2018 MRI BRAIN WITHOUT AND WITH CONTRAST HISTORY: Lung cancer, memory loss, inter mittent confusion. TECHNIQUE: MRI of the brain without and with intravenous gadolinium contrast. COMPARISON: Brain MRIs 03/21/2003 and 03/28. FINDINGS: Many sequences are limited due to motion artifacts, including the high resolution, 3-D postcontrast T1 seq uence is limited due to motion artifacts. Within the limitations of the examination, there is no evidence of infarct, intracranial hemorrhage, or mass lesion. There is diffuse parenchymal volume loss , perhaps mild in severity. The ventricles, cisterns, and sulci are otherwise normal in size and configuration. There is no midline shift or extra-axial collection. There are extensive confluent and scatte red foci of T2/FLAIR hyperintensity in the periventricular an d subcortical white matter, likely the sequelae of chronic microangi opathic disease. The brain parenchyma demonstrates no other signifi cant abnormality. The flow voids of the major intracranial vasculature are present. Scattered mural thickening is present in the paranasal sinuses and ethmoid air cells. The bones and extracr anial soft tissues are otherwise unremarkable. There is patchy apparent enhancement in the upper clivus which is felt to reflect ar tifact. IMPRESSION: Within the limitations of the examinatio n, no infarct, intracranial hemorrhage, or mass lesion. 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 Performing Organization Address City/State/ZIP Code Phon e Number [facility] documented in this encounter Visit Diagnoses Not on filedocumented in this encounter
--- OUTSIDE RECORDS SUMMARY | 2022-02-21 01:08 | XMS_ITS | Encounter Summary ---
:1945 Author Organization [facility] Address [address] [place] [address] Care Team Providers Name Role Phone Unavailable Primary Care Provider Unavailable Encounter Details Date Type Department Care Team Description 09/24/2006 Hospital Encounter [facility] - Angel Tay MD [address] [phone] (Wo rk) Social History Tobacco Use Types [...]
--- OUTSIDE RECORDS SUMMARY | 2022-02-21 01:08 | XMS_ITS | Encounter Summary ---
:1945 Author Organization [facility] Address [address] [place] [address] Care Team Providers Name Role Phone Unavailable Primary Care Provider Unavailable Encounter Details Date Type Department Care Team Description 02/17/2006 Results Only [facility] - Deric Rosa, conversion MD [address] [facility] [address] [place] [address] [address] [place] [address] (Wo rk) Social History Tobacco Use Types Packs/Day Years Used Date Never Assessed Sex Assigned at Date Recorded Not on file documented as of this encounter Plan of Treatment Not on filedocumented as of this encounter Procedures Procedure Name Priority Date/Time Associated Diagnosis Comme nts CYTOPATHOLOGY Routine 02/17/2006 0:00 EDT Results for this procedure are i n the results section . documented in this encounter Results CYTOPATHOLOGY (02/17/2006 0:00 EDT) Pathology Report: CYTOPATHOLOGY REPORT [facility] Reports generated via electronic interface contain lulu ginal data; however they are lacking the format of the original re port. Caution should be taken when reading/interpreting unfo rmatted reports. Name: ? CARLY ALVARADO ? Accession #: ? [id number] : ? 1945 (Age: 60) ??F ?Collect Date: ? 01/27 Location: ? RAD ? Receive Date: ? 02/18/2006 Provider: ? FELIZ STOUT MD Copy to: ?JANUARY CALDERÓN MD DAMON I* BELLE STOUT MD ? Fine Needle Aspiratio n/Core Biopsy (Assisted) ? Radiology Department, [place] [address] ([facility]) ? CYTOLOGIC DIAGNOSIS: ? Lung, right lower lobe nodule, CT-guided fine n eedle aspiration: - Non-diagnostic pattern. ??See comment. ? COMMENT: ? The specimen consists predominantly of blood an d hemosiderin-laden macrophages with rare benign bronchial e pithelial cells present and occasional discohesive, mucinous-type, bland-appearing epithelial cells seen on the ThinPrep slide. ??The low cellularity pr ecludes a definitive diagnosis. ??(Dr. López)/[facility] Document reviewed and electronically signed by: ? Elenita López MD Report Date: ??02/19/2006 13:59 By the signature above, the attending physician certif ies that he/she has personally conducted a gross and/or microscopic examin ation of the described specimens and rendered or confirmed the above diagnosi s. Specimen Type: ? Lung, Fine Needle Aspiration, 8mm RLL Nodule Clinical History: ? Two lung nodules; Hx breast Ca 1997; (+) smoker; CT-FNA ??8 mm RLL nodule; R/O mets; clinical diagnosis code: ??518.89 ? Rapid Interpretation: ? Pass 1: ??Hemosiderin-laden macrophages and his tiocytes. Pass 2: ??Hemosiderin-laden macrophages and histiocyte s. Pass 3: ??Hemosiderin-laden macrophages and histiocyte s. Pass 4: ??Rare groups of benign appearing epithelial c ells present. Pass 5: ??Culture only. (Dr. Sal Wolfe; 02/17/2006) Gross Description: ? 12 fixed prepared slides, 2 air dried prepared slides, and 1 tube of Cytolyt were received and pr ocessed by selective cellular enhancement technique. ? End of Report Specimen Performing Organization Address City/State/ZIP Code Phon e Number [facility] [address] [place] [address] SERVICES [facility] [address] [place] [address] documented in this encounter Visit Diagnoses Not on filedocumented in this encounter
--- OUTSIDE RECORDS SUMMARY | 2022-02-21 01:08 | XMS_ITS | Encounter Summary ---
:1945 Author Organization [facility] Address [address] [place] [address] Care Team Providers Name Role Phone Unavailable Primary Care Provider Unavailable Encounter Details Date Type Department Care Team Description 01/12/2007 Before PRISM Converted [facility] - Zoë Donnelly, Visit (Estefani) Estefani mackay MD [address] [place] [address] Social History Tobacco Use Types Packs/Day Years Used Date Never Assessed Sex Assigned at Date Recorded Not on file documented as of this encounter Progress Notes Wing Donnelly MD - 08/03/2009 1707 EST DIVISION OF RADIATION ONCOLOGY TREATMENT SUMMARY - 01/12/2007 SITE AND HISTOPATHOLOGY Right lower lobe, nonsmall-cell carcinoma, status post lobectomy. STAGE T2 N0 M0 with invasion of visceral pleura. SUMMARY Carly Arguelles has completed her course of radiation therapy with excellent tolerance. From December 09, 2006 through January 12, 2007, over a 34-day elapsed period, treatments were delivered to the right lung in the area of tumor resection and pleura. Through a posterior and right lateral setup with wedged pair, using the 10 MV beam at 97% isodose, 200 cGy were delivered daily, for a final total dose of 5000 cGy. Mrs. Arguelles tolerated therapy well. She had very slight esophagitis. She had minimal skin irritation. She is scheduled for followup with Dr. Mendez. Signed by Wing Donnelly MD 01/14/2007 22:05 Oscar Donnelly MDmary Donnelly MD Wing Donnelly MD - Wing Donnelly MD P - tfm Job ID: [id number] Document ID: [id number] cc: MD Darvin Ji MD Ned I Shulman, MD A Roland, MD D: - Wing Donnelly MD P - tfm Job ID: [id number] Document ID: [id number] cc: MD Darvin Ji MD Ned I Shulman, MD documented in this encounter Plan of Treatment Not on filedocumented as of this encounter Visit Diagnoses Not on filedocumented in this encounter
--- OUTSIDE RECORDS SUMMARY | 2022-02-21 01:08 | XMS_ITS | Encounter Summary ---
:1945 Author Organization [facility] Address [address] [place] [address] Care Team Providers Name Role Phone Unavailable Primary Care Provider Unavailable Encounter Details Date Type Department Care Team Description 11/06/2006 Results Only EP[facility] LUNG [facility] Lung [facility] MD Raghav [address] [address] [place], [place] [address] (Wo rk) Social History Tobacco Use Types Packs/Day Years Used Date Never Assessed Sex Assigned at Date Recorded Not on file documented as of this encounter Plan of Treatment Not on filedocumented as of this encounter Procedures Procedure Name Priority Date/Time Associated Diagnosis Comme [facility] SURGICAL PATHOLOGY Routine 11/06/2006 0:00 EST Re sults for this procedure are i n the results section. documented in this encounter Results SURGICAL PATHOLOGY (11/06/2006 0:00 EST) Pathology Report: SURGICAL PATHOLOGY REPORT [facility] Reports generated via electronic interface contain lulu ginal data; LAB however they are lacking the format of the original re port. Caution should be taken when reading/interpreting unfo rmatted reports. Name: ? IWONA ALVARADO ? Accession #: ? [id number] ? : ? 1945 (Age: 61) ??F ? Collect Date: ? 11/06/2006 ? Location: ? SB03 ? Receive Date: ? 007 ? Provider: MARYAN ALEX MD Copy to: DAMON I* BELLE STOUT MD ? Addendum ? Date Ordered: ? 11/16/2006 ? Status: Si gned Out ? Date Complete: ? 11/16/2006 ? By: Daniel murcia Hier ? Date Reported: ? 11/16/2006 ? Addendum Comment ? The results of additional special stains (EvG) have [facility]. ??These stains demonstrate tumor invasion into the visceral pleura. ??The d iagnosis is unchanged. ??(Dr. Leggett)/[facility] Document reviewed and electronically signed by: ? Roman Leggett MD ? Report date: 11/16/2006 By the signature above, the attending physician certif ies that he/she has personally conducted a gross and/or microscopic examin ation of the described specimens and rendered or confirmed the above diagnosi s. Final Pathologic Diagnosis: ? Lung, right lower lobe, lobectomy: 1. ?Adenocarcin stefanie, invasive, with prominent mucinous bronchoalveolar growth pattern. ??See comment. ? - Differentiation: Moderate. - Tumor size: 2.0 x 1.3 x 0.8 cm. ?? - Tumor extends into visceral pleura (AJCC:pT2). - Lymphovascular invasion is absent. - Bronchial margin: Free of tumor. - Vascular margin: ??Free of tumor. - Distance to closest margin: 2.7 cm from bronchial ma rgin. ? 2. ?? 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 3. ?? Non-neoplastic parenchyma shows interstitial fib rosis. 4. ?? Peribronchial lymph nodes: ?- One lymph node negative for malignancy (0/1 ) (AJCC:pN0). Comment: ? The tumor has a predo minantly mucinous bronchioalveolar carcinoma growth pattern. ??There is focal st romal invasion (A4, A11) comprising less than 5% of the tumor. ??This case has b een reviewed by Dr. Cathie Méndez in consultation who agrees with the above diagnoses. ??(Dr. Landaverde)/[facility] Document reviewed and electronically signed by: Roman Leggett MD Report ??Date: 11/13/2006 13:31 By the signature above, the attending physician certif ies that he/she has personally conducted a gross and/or microscopic examin ation of the described specimens and rendered or confirmed the above diagnosi s. Specimen(s) Received: ? Right lower lobe Clinical History: ? Right lung cancer; 50 yr smoking hx Gross Description: ? Received fresh labelled Blane and right lower lobe is a 235 gram, 16.0 x 12.5 x 2.4 cm product of a right lower lo bectomy that is inflated with formalin. ??The pleura is gr ay-purple, smooth, glistening, and completely intact, and contains two stapled lines, one coursing superior- posterior to inferior-anterior, measures 2.0 cm in length, and is l ocated 1.0 cm inferior-posterior to the lobar bronchial margin. ??Th e other staple line coursing from anterior to posterior, mich sures 9.0 cm in length, and is located 0.5 cm superior to the main lobar bronch ial margin. ??On the lateral aspect of the pleura, located 4.0 cm f rom both the superior and anterior surfaces, 6.0 cm from posterior and 10.0 cm from the inferior edg e is a multinodular, firm and slightly bulging mass that measures 2.0 x 1.3 cm and bulges approximately 0.4 cm. ??The overlying pleura i s completely intact and is inked black. ??The specimen is serially sectioned from lateral to medial longitudi hua revealing a firm mass, previously described, that approaches but does not go through the lateral aspect of the pleura, is dill-sutherland, sligh tly firm, measuring 2.0 x 1.3 x 0.8 cm and is located 2.7 cm from t he lobar bronchus resection margin. ??The remaining lung parenchyma is spongy, s lightly dense, and sutherland-brown. ??The vasculature and airways are completely patent. ??No additional masses or nodules are grossly evident. ??Bone Drier Operator sections are submitted as fo llows: BLOCK GA A1 ?Vascular margins, en face A2 ?Lobar bronchial margin, en face A3 ?Peribronchial lymph node A4, A5 ?Represe ntative sections of mass and adjacent lung parenchyma A6 ?Lung parenchyma adjacent to mass A7-A9 ?Bone Drier Operator secti ons of parenchyma uninvolved with mass A10 ?Medial resection margin adjacent to the staple margins and bronchial/vascular margins A11-A15 ? Remaining mass (Dr. Landaverde)/[facility] End of Report Specimen Performing Organization Address City/State/ZIP Code Phon e Number [facility] [address] [place] [address] SERVICES [facility] [address] [place] [address] documented in this encounter Visit Diagnoses Not on filedocumented in this encounter
--- OUTSIDE RECORDS SUMMARY | 2022-02-21 01:08 | XMS_ITS | Encounter Summary ---
:1945 Author Organization [facility] Address [address] [place] [address] Care Team Providers Name Role Phone Unavailable Primary Care Provider Unavailable Encounter Details Date Type Department Care Team Description 04/06/2018 Results Only [facility]- PRISM Angel Bush MD PhD [phone] [address] [facility] [address] [place] [address] (Wo rk) Social History Tobacco [...] Name Priority Date/Time Associated Diagnosis Comme nts MET FISH TESTING AT Routine 04/06/2018 12:[address] [facility] EDT procedure are i n the results section. documented in this encounter Results MET FISH TESTING AT [facility] (04/06/2018 12:19 EDT) MET FISH Result See Pathology [facility] Scanned Report in LABORATORY SERVICES RUIZ.Comment: Assayed by [facility], [place], [place] Specimen Other Performing Organization Address City/State/ZIP Code Phon e Number [facility] [address] [place] [address] SERVICES documented in this encounter Visit Diagnoses Not on filedocumented in this encounter
--- OUTSIDE RECORDS SUMMARY | 2022-02-21 01:08 | XMS_ITS | CCD ---
:1945 Author Care Team Providers Name Role Phone RADHA VANN, CLEOPATRA Gómez Attending Physician Unavailable Vital Signs Unknown or Not Available. Allergies Allergy Code Allergy Type Reaction Status PENICILLINS (CLASS) 0 Drug allergy pt doesn't know Activ e TETRACYCLINE 12450 Drug allergy Active Procedures Unknown or Not Available. History of Immunizations Unknown or Not Available. Problems Problem Code Start Date Resolved Date Status CHRONIC AIRWAY OBSTRUCTION 33573869 A ctive HX OF BRONCHOGENIC MALIGNANCY 581169240 Active MULTIPLE SCLEROSIS 96357575 Active Hyperemesis 866824742 Active HTN 27192033 Active Acute respiratory failure with hypoxia 33379208 Active COPD with exacerbation 123861136 Activ e Cancer of lung 50392032 Active Acute CHF 04812794 Active Hypertension 58620448 Active Near syncope 021752950 Active Dehydration 68737764 Active High troponin I level 337111337 Active Acute exacerbation of COPD 154583386 08/07/2021 A ctive Results COMPREHENSIVE METABOLIC PANEL (CMP) - Co llect Date/Time: 04/18/2021 10:00 Test Name Code Test Result Test Units Test Ref Range GLUCOSE 2345-7 104 mg/dL L=70 H=116 BUN 3094-0 33 mg/dL L=6 H=25 CREATININE 2160-0 0.83 mg/dL L=0.51 H=0.95 SODIUM SERUM 2951-2 139 mmol/L L=136 H=145 POTASSIUM SERUM 2823-3 4.5 mmol/L L=3.4 H=5.2 CHLORIDE SERUM 2075-0 101 mmol/L L=96 H=110 CARBON DIOXIDE (CO2) 2028-9 34 mmol/L L=22 H= 34 ANION GAP 64538-4 3.7 mmol/L CALCIUM SERUM 40244-6 9.7 mg/dL L=8.2 H=10.2 BILIRUBIN TOTAL 1975-2 0.3 mg/dL L=0.0 H=1.3 ALK. PHOS. 6768-6 135 U/L L=46 H=116 SGOT (AST) 1920-8 12 U/L L=15 H=37 SGPT (ALT) 1742-6 15 U/L L=12 H=78 TOTAL PROTEIN 2885-2 6.3 gm/dL L=6.0 H=8.0 ALBUMIN 1751-7 3.1 gm/dL L=3.4 H=5.0 AGE 75 years eGFR (non-Afr.Amer.) 56189-0 67 mL/min eGFR (Afr-Nauruan) 32002-7 81 mL/min MAGNESIUM SERUM - Collect Date/Time: 10:00 Test Name Code Test Result Test Units Test Ref Range MAGNESIUM 39668-2 1.6 mg/dL L=1.8 H=2.4 TSH THYROID STIMULATING HORMONE - [facility] Date/Time: 04/18/2021 10:00 Test Name Code Test Result Test Units Test Ref Range TSH 3014-8 1.526 uIU/mL L=0.360 H=3.740 CBC W/ DIFFERENTIAL - Collect Date/Time: 04/18/2021 10:00 Test Name Code Test Result Test Units Test Ref Range WBC 6690-2 7.64 th/cmm L=5.00 H=10.00 NEUT % 78.2 % L=40.0 H=80.0 LYMPH % 9.9 % L=10.0 H=50.0 MONO % 70565-4 9.7 % L=2.0 H=12.0 EOS % 1.3 % L=0.0 H=8.0 BASO % 0.8 % L=0.0 H=3.0 IG % 2514-8 0.1 % L=0.0 H=1.1 NRBC % 80991-2 0.0 % L=0.0 H=0.0 NEUT abs count 751-8 6.0 th/cmm L=1.6 H=8.4 LYMPH abs count 731-0 0.8 th/cmm L=1.5 H=4.0 MONO abs count 742-7 0.7 th/cmm L=0.2 H=1.0 EOS abs count 711-2 0.1 th/cmm L=0.0 H=0.5 BASO abs count 704-7 0.1 th/cmm L=0.0 H=0.2 IG abs count 38495-0 0.0 th/cmm L=0.0 H=0.1 NRBC abs count 55971-7 0.0 mil/cmm L=0.0 H=0.0 RBC 789-8 3.66 mil/cmm L=3.90 H=5.40 HEMOGLOBIN 718-7 10.1 gm/dL L=12.0 H=16.0 HEMATOCRIT 4544-3 34 % L=37 H=47 MCV 787-2 92 fL L=82 H=92 MCH 785-6 27.6 pg L=27.0 H=31.0 MCHC 786-4 30.1 % L=32.0 H=36.0 RDW-SD 788-0 52.1 fL L=39.0 H=49.0 PLATELET COUNT 777-3 236 th/cmm L=150 H=450 Active Medications Medication Code Dose Units Frequency Route Modification Start Date/Time predniSONE 10MG 361401 1 TABLET DAILY ORAL 08/07/20 21 Oral Tablet 15:21 Prescription Detail TAKE 5 TABS ORAL FOR 2 DAYS, THEN 4 TABS FOR 2 DAYS, THEN 3 TABS FOR 2 DAYS, THEN 2 TABS FOR 2 DAYS, THEN 1 TAB FOR 2 DAYS Ipratropium 7615464 1 NEEDED INHALATION 021 15:20 [place]-Albuterol Sulfate FOUR TIMES A 0.5MG/3ML-3MG/3ML DAY Inhalation Solution Prescription Detail 1 INHALATION NEEDED FOUR TIMES A DAY FOR Difficulty Breathing Acetaminophen 325MG 694312 650 MILLIGRAMS NEEDED ORAL 06/28/2020 09:36 Oral Tablet EVERY 4 HOURS Prescription Detail TAKE 650 MILLIGRAMS ORAL NEEDED EVERY 4 HOURS Amitriptyline HCl 50MG 141546 50 MILLIGRAMS BEDTIME ORAL 06/28/2020 09:36 Oral Tablet Prescription Detail TAKE 50 MILLIGRAMS ORAL BEDT МАРИЯ Atorvastatin Calcium 818237 20 MILLIGRAMS EVERY EVENING ORAL 06/28/2020 09:36 20MG Oral Tablet Prescription Detail TAKE 20 MILLIGRAMS ORAL EVER Y EVENING Budesonide 0.5MG/2ML 875235 1 EACH DAILY INHALATION 06/28/2020 09:36 Inhalation Suspension Prescription Detail 1 EACH INHALATION DAILY Cetirizine 10MG Oral 9219045 10 MILLIGRAMS BEDTIME ORAL 06/28/2020 09:36 Tablet Prescription Detail TAKE 10 MILLIGRAMS ORAL BEDT МАРИЯ Famotidine 20MG 009623 20 MILLIGRAMS NEEDED TWICE ORAL 06/28/2020 09:36 Oral Tablet DAILY Prescription Detail TAKE 20 MILLIGRAMS ORAL N EEDED TWICE DAILY Ipratropium 5417819 1 EACH NEEDED INHALATION 020 09:36 [place]-Albuterol Sulfate 0.5MG/3ML-3MG/3ML Inhalation Solution Prescription Detail 1 EACH INHALATION NEEDED Lidocaine-Prilocaine 315950 1 EACH NEEDED TOPICAL 1 2.5%-2.5% Topical APPLICATION 09 :36 application Cream Prescription Detail 1 EACH TOPICAL APPLICATION NEEDED Losartan Potassium 100MG 331560 100 MILLIGRAMS DAILY ORAL 06/28/2020 09:36 Oral Tablet Prescription Detail TAKE 100 MILLIGRAMS ORAL PARRIS LY Magnesium 500 MG Oral 448453 2 TABLET THREE TIMES A DAY ORAL 06/28/2020 09:36 Tablet Prescription Detail TAKE 2 TABLET ORAL THREE CELSO ES A DAY Morphine Sulfate 60MG 951879 60 MILLIGRAMS TWICE A DAY ORAL 06/28/2020 09:36 Oral Capsule, Extended Release Prescription Detail TAKE 60 MILLIGRAMS ORAL TWIC E A DAY Narcan 4MG/0.1ML Nasal [place] 1325570 1 EACH NEEDED NASAL 06/28/2020 09:36 Prescription Detail SPRAY 1 EACH NASAL NEEDED Omeprazole 40MG Oral 20021106 40 MILLIGRAMS DAILY ORAL 06/28/2020 09:36 Capsule, Delayed Release Prescription Detail TAKE 40 MILLIGRAMS ORAL BETTY Y Ondansetron 4MG Oral Tablet 019663 1 TABLET DAILY ORAL 06/28/2020 09:36 Prescription Detail TAKE 1 TABLET ORAL DAILY Polyethylene Glycol 34607156978 1 EACH NEEDED DAILY ORAL 06/28/2020 09:36 17GM/1Dose Oral Powder for Solution Prescription Detail TAKE 1 EACH ORAL NEEDED D AILY PreserVision Areds 2 NA 41410907668 2 CAPSULE DAILY ORAL 06/28/2020 09:36 Oral Capsule, Liquid Filled Prescription Detail TAKE 2 CAPSULE ORAL DAILY ProAir HFA 816476 2 PUFF NEEDED INHALATION 06/28/20 09:36 0.09MG/1Actuation THREE TIMES A Inhalation Suspension DAY Prescription Detail 2 PUFF INHALATION NEEDED THREE TIMES A DAY Pulmicort Flexhaler 587997 2 PUFF TWICE A DAY INHALATION 06/28/2020 09:36 90MCG/1Act Inhalation Powder Prescription Detail 2 PUFF INHALATION TWICE A D AY Spironolactone 25MG Oral 533619 25 MILLIGRAMS DAILY ORAL 06/28/2020 09:36 Tablet Prescription Detail TAKE 25 MILLIGRAMS ORAL BETTY Y Torsemide 20MG Oral Tablet 185997 1 TABLET DAILY ORAL 06/28/2020 09:36 Prescription Detail TAKE 1 TABLET ORAL DAILY Vitamin D3 672823 0858 INTERNATIONAL UNITS DAILY ORAL 1 09:36 1000IU Oral Tablet Prescription Detail TAKE 1000 INTERNATIONAL UNIT S ORAL DAILY Ondansetron 4MG Oral 983889 4 MILLIGRAMS BEFORE MEALS ORAL 06/28/2020 09:35 Tablet, Disintegrating Prescription Detail TAKE 4 MILLIGRAMS ORAL BEFOR E MEALS predniSONE 5MG Oral 176386 5 MILLIGRAMS DAILY WITH FOOD ORAL 06/28/2020 09:35 Tablet Prescription Detail TAKE 5 MILLIGRAMS ORAL DAILY WITH FOOD Refresh Ophthalmic 974952 1 EACH NEEDED OPTHALMIC 0 10/20/2019 12:16 Solution Prescription Detail 1 EACH OPTHALMIC NEEDED Avastin 25MG/1ML Intravenous 2062597 [id number] IVPB 10/20/2019 12:15 Solution Prescription Detail IVPB [id number] Mapap 325MG Oral 954443 650 MILLIGRAMS NEEDED EVERY ORAL 10/20/2019 12:14 Tablet 4 HOURS Prescription Detail TAKE 650 MILLIGRAMS ORAL NEEDED EVERY 4 HOURS amLODIPine Besylate 10MG 452166 10 MILLIGRAMS DAILY ORAL 08/06/2019 11:13 Oral Tablet Prescription Detail TAKE 10 MILLIGRAMS ORAL BETTY Y Aspirin 81MG Oral Tablet, 514257 81 MILLIGRAMS DAILY ORAL 08/16/2018 10:22 Enteric Coated Prescription Detail TAKE 81 MILLIGRAMS ORAL BETTY Y Cymbalta 60MG Oral Capsule, 457888 60 MILLIGRAMS DAILY ORAL 08/16/2018 10:22 Delayed Release Prescription Detail TAKE 60 MILLIGRAMS ORAL BETTY Y Medications Administered During Visit Unknown or Not Available. Encounters Encounter Diagnosis Diagnosis Code Start Date Encounter for antineoplastic immunotherapy [id number] 04/18/2021 Social History Smoking Status Code Start Date End Date Current every day smoker 166892396 Patient Decision Aids Unknown or Not Available. Discharge Instructions You were admitted to [facility] on 04/18/2021 10:21 with a principal diagnosis of Encounter for antineoplasti c immunotherapy You had the following tests done: CBC W / DIFFERENTIAL COMPREHENSIVE METABOLIC PANEL (CMP) MAGNESIUM SERUM TSH THYROID STIMUL ATING HORMONE You were discharged from [facility] 01 on 04/18/2021 10:21 Should you have any questions prior to [...]
--- OUTSIDE RECORDS SUMMARY | 2022-02-21 01:08 | XMS_ITS | CCD ---
:1945 Author Care Team Providers Name Role Phone RADHA VANN, CLEOPATRA Gómez Attending Physician Unavailable Vital Signs Unknown or Not Available. Allergies Allergy Code Allergy Type Reaction Status PENICILLINS (CLASS) 0 Drug allergy pt doesn't know Activ e TETRACYCLINE 73475 Drug allergy Active Procedures Unknown or Not Available. History of Immunizations Unknown or Not Available. Problems Problem Code Start Date Resolved Date Status CHRONIC AIRWAY OBSTRUCTION 11700697 A ctive HX OF BRONCHOGENIC MALIGNANCY 370788672 Active MULTIPLE SCLEROSIS 10220372 Active Hyperemesis 869142900 Active HTN 37750263 Active Acute respiratory failure with hypoxia 23256588 Active COPD with exacerbation 355488744 Activ e Cancer of lung 33489938 Active Acute CHF 04568459 Active Hypertension 83446413 Active Near syncope 380558835 Active Dehydration 05145031 Active High troponin I level 235218680 Active Acute exacerbation of COPD 600215901 08/07/2021 A ctive Results Unknown or Not Available. Active Medications Medication Code Dose Units Frequency Route Modification Start Date/Time predniSONE 10MG 214849 1 TABLET DAILY ORAL 08/07/20 21 Oral Tablet 15:21 Prescription Detail TAKE 5 TABS ORAL FOR 2 DAYS, THEN 4 TABS FOR 2 DAYS, THEN 3 TABS FOR 2 DAYS, THEN 2 TABS FOR 2 DAYS, THEN 1 TAB FOR 2 DAYS Ipratropium 0770816 1 NEEDED INHALATION 021 15:20 [place]-Albuterol Sulfate FOUR TIMES A 0.5MG/3ML-3MG/3ML DAY Inhalation Solution Prescription Detail 1 INHALATION NEEDED FOUR TIMES A DAY FOR Difficulty Breathing Acetaminophen 325MG 047500 650 MILLIGRAMS NEEDED ORAL 06/28/2020 09:36 Oral Tablet EVERY 4 HOURS Prescription Detail TAKE 650 MILLIGRAMS ORAL NEEDED EVERY 4 HOURS Amitriptyline HCl 50MG 452888 50 MILLIGRAMS BEDTIME ORAL 06/28/2020 09:36 Oral Tablet Prescription Detail TAKE 50 MILLIGRAMS ORAL BEDT МАРИЯ Atorvastatin Calcium 402344 20 MILLIGRAMS EVERY EVENING ORAL 06/28/2020 09:36 20MG Oral Tablet Prescription Detail TAKE 20 MILLIGRAMS ORAL EVER Y EVENING Budesonide 0.5MG/2ML 726542 1 EACH DAILY INHALATION 06/28/2020 09:36 Inhalation Suspension Prescription Detail 1 EACH INHALATION DAILY Cetirizine 10MG Oral 0443087 10 MILLIGRAMS BEDTIME ORAL 06/28/2020 09:36 Tablet Prescription Detail TAKE 10 MILLIGRAMS ORAL BEDT МАРИЯ Famotidine 20MG 961884 20 MILLIGRAMS NEEDED TWICE ORAL 06/28/2020 09:36 Oral Tablet DAILY Prescription Detail TAKE 20 MILLIGRAMS ORAL N EEDED TWICE DAILY Ipratropium 7982151 1 EACH NEEDED INHALATION 020 09:36 Rough [place] Ready-Albuterol Sulfate 0.5MG/3ML-3MG/3ML Inhalation Solution Prescription Detail 1 EACH INHALATION NEEDED Lidocaine-Prilocaine 637096 1 EACH NEEDED TOPICAL 1 2.5%-2.5% Topical APPLICATION 09 :36 application Cream Prescription Detail 1 EACH TOPICAL APPLICATION NEEDED Losartan Potassium 100MG 574213 100 MILLIGRAMS DAILY ORAL 06/28/2020 09:36 Oral Tablet Prescription Detail TAKE 100 MILLIGRAMS ORAL PARRIS LY Magnesium 500 MG Oral 160007 2 TABLET THREE TIMES A DAY ORAL 06/28/2020 09:36 Tablet Prescription Detail TAKE 2 TABLET ORAL THREE CELSO ES A DAY Morphine Sulfate 60MG 543236 60 MILLIGRAMS TWICE A DAY ORAL 06/28/2020 09:36 Oral Capsule, Extended Release Prescription Detail TAKE 60 MILLIGRAMS ORAL TWIC E A DAY Narcan 4MG/0.1ML Nasal [place] 1011494 1 EACH NEEDED NASAL 06/28/2020 09:36 Prescription Detail SPRAY 1 EACH NASAL NEEDED Omeprazole 40MG Oral 20021106 40 MILLIGRAMS DAILY ORAL 06/28/2020 09:36 Capsule, Delayed Release Prescription Detail TAKE 40 MILLIGRAMS ORAL BETTY Y Ondansetron 4MG Oral Tablet 701935 1 TABLET DAILY ORAL 06/28/2020 09:36 Prescription Detail TAKE 1 TABLET ORAL DAILY Polyethylene Glycol 27886502676 1 EACH NEEDED DAILY ORAL 06/28/2020 09:36 17GM/1Dose Oral Powder for Solution Prescription Detail TAKE 1 EACH ORAL NEEDED D AILY PreserVision Areds 2 NA 25759682086 2 CAPSULE DAILY ORAL 06/28/2020 09:36 Oral Capsule, Liquid Filled Prescription Detail TAKE 2 CAPSULE ORAL DAILY ProAir HFA 947226 2 PUFF NEEDED INHALATION 06/28/20 09:36 0.09MG/1Actuation THREE TIMES A Inhalation Suspension DAY Prescription Detail 2 PUFF INHALATION NEEDED THREE TIMES A DAY Pulmicort Flexhaler 755468 2 PUFF TWICE A DAY INHALATION 06/28/2020 09:36 90MCG/1Act Inhalation Powder Prescription Detail 2 PUFF INHALATION TWICE A D AY Spironolactone 25MG Oral 992827 25 MILLIGRAMS DAILY ORAL 06/28/2020 09:36 Tablet Prescription Detail TAKE 25 MILLIGRAMS ORAL BETTY Y Torsemide 20MG Oral Tablet 915814 1 TABLET DAILY ORAL 06/28/2020 09:36 Prescription Detail TAKE 1 TABLET ORAL DAILY Vitamin D3 116010 1116 INTERNATIONAL UNITS DAILY ORAL 1 09:36 1000IU Oral Tablet Prescription Detail TAKE 1000 INTERNATIONAL UNIT S ORAL DAILY Ondansetron 4MG Oral 425791 4 MILLIGRAMS BEFORE MEALS ORAL 06/28/2020 09:35 Tablet, Disintegrating Prescription Detail TAKE 4 MILLIGRAMS ORAL BEFOR E MEALS predniSONE 5MG Oral 411953 5 MILLIGRAMS DAILY WITH FOOD ORAL 06/28/2020 09:35 Tablet Prescription Detail TAKE 5 MILLIGRAMS ORAL DAILY WITH FOOD Refresh Ophthalmic 542821 1 EACH NEEDED OPTHALMIC 0 10/20/2019 12:16 Solution Prescription Detail 1 EACH OPTHALMIC NEEDED Avastin 25MG/1ML Intravenous 6737115 [id number] IVPB 10/20/2019 12:15 Solution Prescription Detail IVPB [id number] Mapap 325MG Oral 916962 650 MILLIGRAMS NEEDED EVERY ORAL 10/20/2019 12:14 Tablet 4 HOURS Prescription Detail TAKE 650 MILLIGRAMS ORAL NEEDED EVERY 4 HOURS amLODIPine Besylate 10MG 474266 10 MILLIGRAMS DAILY ORAL 08/06/2019 11:13 Oral Tablet Prescription Detail TAKE 10 MILLIGRAMS ORAL BETTY Y Aspirin 81MG Oral Tablet, 978741 81 MILLIGRAMS DAILY ORAL 08/16/2018 10:22 Enteric Coated Prescription Detail TAKE 81 MILLIGRAMS ORAL BETTY Y Cymbalta 60MG Oral Capsule, 824505 60 MILLIGRAMS DAILY ORAL 08/16/2018 10:22 Delayed Release Prescription Detail TAKE 60 MILLIGRAMS ORAL BETTY Y Medications Administered During Visit Unknown or Not Available. Encounters Encounter Diagnosis Diagnosis Code Start Date Procedure and treatment not carried out because of [id number] 03/20/2021 patient's decision for other reasons Social History Smoking Status Code Start Date End Date Current every day smoker [id number] Patient Decision Aids Unknown or Not Available. Discharge Instructions You were admitted to [facility] on 03/20/2021 09:16 with a principal diagnosis of Procedure and treatment not carried out because of patient's decision for other reasons You were discharged from [facility] on 03/20/2021 09:16 Should you have any questions prior to [...]
--- OUTSIDE RECORDS SUMMARY | 2022-02-21 01:08 | XMS_ITS | Encounter Summary ---
:1945 Author Organization [facility] Address [address] [place] [address] Care Team Providers Name Role Phone Unavailable Primary Care Provider Unavailable Encounter Details Date Type Department Care Team Description 07/05/2018 Results Only Imaging [facility]- Sundeep Mendez is RUIZ Pimentel MD [phone] [facility] [address] [place] [address] (Wo rk) Social History Tobacco [...] encounter Procedures Procedure Name Priority Date/Time Associated Comments Diagnosis VL LOWER VENOUS 07/05/2018 11:09 Results for this (DVT) UNILATERAL EDT procedure a re in the results section. documented in this encounter Results VL LOWER VENOUS (DVT) UNILATERAL (07/05/2018 11:09 EDT) Anatomical Region Laterality Modality Other Specimen Narrative [facility] - 07/05/2018 13:19 EDT Vascular Diagnostic Laboratory [facility] Machine [employer] [place], [facility], Level [address] [place] [address] Technologist: Sindy Doll ?Jamison Cole Fellow: IMPRESSIONS 1. There is no significant reflux in the right common femoral, femoral, ?? popliteal veins. 2. No evidence of deep or superficial ve in thrombosis in the right lower ?? extremity. was reported to Dr. Mendez , by Sindy valdivia , on 07/05/2018 , at 12:40 PM. Correct read-back was verified. Prel iminary results available in [facility]. PROCEDURE: Unilateral lower extremity venous ultras ound; common femoral, proximal profunda femoral, femoral, popliteal, po sterior tibial, peroneal, and greater saphenous veins are routinely ex amined. ? 2D ultrasound, compression, color flow Doppler, and spe ctral Doppler. INDICATION: right lower extremity swelling and right calf pain that has persisted for 1 week. HISTORY: RISK FACTORS: Current tobacco use. Hypertension. ??Hyp erlipidemia. Cancer/chemotherapy GREYSCALE FINDINGS: Normal right lower extremity venous ultr asound: all segments visualized were compressible with spontaneous and p hasic flow. Electronically signed by: Castro Ordoñez 07/05/2018 13:19 Procedure Note Castro Ordoñez MD - 07/05/2018 Vascular Diagnostic Laboratory [facility], Level [address] [place] [address] Technologist: Sindy Doll Kaleb Fellow: IMPRESSIONS 1. There is no significant reflux in the right common femoral, femoral, popliteal veins. 2. No evidence of deep or superficial ve in thrombosis in the right lower extremity. was reported to Dr. Mendez , by Sindy valdivia , on 07/05/2018 , at 12:40 PM. Correct read-back was verified. Prel iminary results available in [facility]. PROCEDURE: Unilateral lower extremity venous ultras ound; common femoral, proximal profunda femoral, femoral, popliteal, po sterior tibial, peroneal, and greater saphenous veins are routinely ex amined. 2D ultrasound, compression, color flow Doppler, and spe ctral Doppler. INDICATION: right lower extremity swelling and right calf pain that has persisted for 1 week. HISTORY: RISK FACTORS: Current tobacco use. Hypertension. Hyper lipidemia. Cancer/chemotherapy GREYSCALE FINDINGS: Normal right lower extremity venous ultr asound: all segments visualized were compressible with spontaneous and p hasic flow. Electronically signed by: Castro Ordoñez 07/05/2018 13:19 Performing Organization Address City/State/ZIP Code Phon e Number [facility] documented in this encounter Visit Diagnoses Not on filedocumented in this encounter
--- OUTSIDE RECORDS SUMMARY | 2022-02-21 01:08 | XMS_ITS | Encounter Summary ---
:1945 Author Organization [facility] Address [address] [place] [address] Care Team Providers Name Role Phone Rene Walker MD Primary Care Provider Unavailable Encounter Details Date Type Department Care Team Description 03/17/2018 Results Only Imaging [facility]- Unknown, [facility] ProviderMD [phone] Social History Tobacco Use Types Packs/Day Years Used Date Current Every Day Smoker Cigarettes 0.5 50 Alcohol Use Standard Drinks/Week Comments Not Asked 0 (1 standard drink = 0.6 oz pure alcoho l) Sex Assigned at Date Recorded Not on file documented as of this encounter Plan of Treatment Pending Results Name Type Priority Associated Diagnoses Date/Ti me OUTSIDE CD - CT CHEST Imaging 2017 11:04 EDT documented as of this encounter Visit Diagnoses Not on filedocumented in this encounter 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
--- OUTSIDE RECORDS SUMMARY | 2022-02-21 01:08 | XMS_ITS | Encounter Summary ---
:1945 Author Organization [facility] Address [address] [place] [address] Care Team Providers Name Role Phone Unavailable Primary Care Provider Unavailable Encounter Details Date Type Department Care Team Description 11/06/2006 - Hospital Encounter [facility] Derek Crabtreetye conklin 11/11/2006 Cardiothoracic Surgery MD [facility] [address] [phone] [facility] [address] [place] [address] (Wo rk) Social History Tobacco Use Types Packs/Day Years Used Date Never Assessed Sex Assigned at Date Recorded Not on file documented as of this encounter Discharge Disposition Disposition Code Departure Means Destination Home-Health Care Svc documented in this encounter OR Notes OR Surgeon - Jaycee Dasilva MD - 11/06/2006 0000 EST PROCEDURE REPORT PT TYPE: IP PT LOC: [id number] SERVICE DATE: 11/06/2006 SURGEON: MILLI Colon MDLisa Floyd, MDMitchell C Norotsky, MD [employer]: Jaycee Dasilva MD PREOPERATIVE DIAGNOSIS: 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 PROCEDURE: Right lower lobectomy. ANESTHESIA: General via double-lumen tube. INDICATIONS: The patient is a 46-ktou-zmuihddw who had approximately a 28-sxvx-uirc tobacco history who began to experience pain and weight loss. She had a CAT scan, which revealed a lung nodule in theright lower lobe and subsequent scan showed growth. She had a CT-guided biopsy, which showed nonsquam ous cell lung cancer and the patient presented to the clinic for consultation. Her studies were reviewed and she was deemed an appropriate candidate for a right lower lobectomy. FINDINGS: Approximately 1.5-cm mass in the right lower lobe. NARRATIVE: The patient was taken to the operating room and placed supine on the operating room table. She was prepped and draped in the standard surgical fashion after anesthesia had been induced with a double-lumen tube. The patient was positioned in the left lateral decubitus position. A standard posterolateral thoracotomy incision was made. The tissues were dissected using electrocautery down to the level of the ribs. The anesthesiologist was asked to deflate the right lung and the ribs were palpated to identify the sixth rib. The chest cavity was entered in the fifth intercostal space. The lung was noted to be properly deflated. The chest cavity was opened with the retractor and the right lung was palpated for additional nodules. There were no additional nodules palpated; however, the cancer was palpated in the right lower lobe. Next, attention was turned to the inferior pulmonary ligament, which was dissected free from the chest wall. Then, attention was turned to the inferior pulmonary vein. The vein was dissected clear from attachments. An endovascular stapler was used to ligate and transect the inferior pulmonary vein. Next, attention was turned to the artery supplying the right lower lobe. The basilar trunk was identified and was taken with several endovascular staplers. Next, attention was turned to the fissure the middle lobe from the lower lobe. The fissure was divided medially and control was obtained to the rest of the fissure At this time, there was noted to be some bleeding into the right chest as the fissure was placed in the stapler. The fissure was completed using the endostapler. At that time, a branch that appeared to be an anomalous supply to the right lower lobe was noted. A 3-0 Prolene stitch was used to stop the bleeding. At this time, Cell Saver was used to remove the blood that was in the chest. The anomalous branch was dissected clear from adhesions and an endovascular stapler was used to ligate and transect this vessel more proximally to the repair, which would be included in the specimen. attention was then turned to the bronchussupplying the right lower lobe. The adhesions were cleared free and a TA stapler was applied across the right lower lobe bronchus. The stapler was closed and anesthesia was asked to inflate the lung payam sure that the bronchus to the middle lobe was not encroached upon. Both the middle and upper lobes inflated properly when anesthesia applied positive pressure. Anesthesia was asked again to deflate the lung and the stapler across the lower lobe bronchus was fired. The bronchus was then transected with the knife and the right lower lobe was passed off thetable as a specimen. The chest cavity was ins pected for hemostasis and there was no bleeding observed. The chest cavity was then filled with sterile saline and anesthesia was then again asked to apply positive pressure to test the integrity of the bronchial stapling. There were no bubbles noted to be coming from the bronchus, and anesthesia was then again asked to deflate the remainder of the right lung,and the aspiration of the irrigation was performed. There remained to be hemostasis at the arterialand venous stumps. The chest tubes were placed at this time. A 32-Dutch chest tube was placed anteriorly and a 36-Dutch chest tube was placed posteriorly and secured at the skin. Then, 2-0 Vicryl sutures were used to approximate the ribs and a 0-Vicryl suture was used to approximate the fascial layers of the chest wall. A running 2-0 Vicryl suture was used to approximate the subcutaneous tissue and a 4-0 Monocryl suture was used to approximate the subcuticular space. Prior to closing the chest, the anesthesiologist had reinflated the right lung and the lung was noted to be fully inflated at the time of closure of the chest. The patient was then cleaned and dried and her wounds were dressed. She was placed supine on the operating room table and anesthesia was able to extubate her. The patient was then taken in stable condition to the postsurgical intensive care unit, where s he recovered uneventfully. Dr. Crabtree was present for the entire case. ESTIMATED BLOOD LOSS: 500 cc. FLUIDS: 250 cc of Cell Saver and 2300 cc of lactated Ringers. URINE OUTPUT: 500 cc. SPECIMENS: Right lower lobe. Signed by Juan Crabtree MD 11/11/2006 16:02 Larry Colon, [facility] Crabtree MD Dictated by: Jaycee Dasilva MD Juan Crabtree MD - MD Brown A - ss Job ID: [id number] Document ID: [id number] cc: MD Juan Bhatt MD Cancer Data Registry Darvin Mendez MD documented in this encounter Plan of Treatment Not on filedocumented as of this encounter Procedures Procedure Name Priority Date/Time Associated Comments Diagnosis COMPLETE BLOOD COUNT Routine 11/11/2006 7:55 Resu lts for this EST procedure are i n the results section. CHEST PA AND LATERAL 11/10/2006 15:02 Res ults for this EST procedure are i n the results section. CHEST PA 11/09/2006 15:44 Results for this EST procedure are i n the results section. PORTABLE CHEST 1 VIEW 11/08/2006 13:31 Re sults for this EST procedure are i n the results section. COMPLETE BLOOD COUNT Routine 11/08/2006 4:28 Resu lts for this AND DIFFERENTIAL EST procedure a re in the results section. BUN Routine 11/08/2006 4:28 Results for this EST procedure are i n the results section. CREATININE Routine 11/08/2006 4:28 Results for this EST procedure are i n the results section. ELECTROLYTES Routine 11/08/2006 4:28 Results for this EST procedure are i n the results section. COMPLETE BLOOD COUNT Routine 11/07/2006 4:14 Resu lts for this AND DIFFERENTIAL EST procedure a re in the results section. BUN Routine 11/07/2006 4:14 Results for this EST procedure are i n the results section. CREATININE Routine 11/07/2006 4:14 Results for this EST procedure are i n the results section. ELECTROLYTES Routine 11/07/2006 4:14 Results for this EST procedure are i n the results section. MRSA PCR Routine 11/06/2006 14:01 Results for this EST procedure are i n the results section. COMPLETE BLOOD COUNT Routine 11/06/2006 11:32 Res ults for this EST procedure are i n the results section. GLUCOSE, GLUCOMETER Routine 11/06/2006 11:27 Resu lts for this EST procedure are i n the results section. PORTABLE CHEST 1 VIEW 11/06/2006 11:07 Re sults for this EST procedure are i n the results section. documented in this encounter Results (ABNORMAL) HEMAGRAM (11/11/2006 7:55 EST) Pathologist Sig nature WBC 8.41 4.0 - 12.4 K/cmm [facility] RBC 3.98 3.86 - 5.04 M/cmm [facility] Hemoglobin 11.5 (L) 11.6 - 15.2 gm/dl [facility] HCT 34.0 (L) 34.9 - 44.4 % [facility] MCV 85 81 - 98 fl [facility] MCH 29.0 26.7 - 33.3 pg [facility] MCHC 33.9 32.1 - 35.9 gm/dl [facility] PLT 368 (H) 141 - 320 K/cmm [facility] RDW-CV 13.8 11.7 - 14.6 % [facility] Specimen Performing Organization Address City/State/ZIP Code Phon e Number [facility] [address] [place] [address] SERVICES [facility] [address] [place] [address] CHEST PA AND LATERAL (11/10/2006 15:02 EST) Anatomical Region Laterality Modality Other Specimen Narrative [facility] - 04/07/2009 3: 29 EDT s/p RLL, eval for pneumo on water seal PA AND LATERAL CHEST 11/10/06 1457 HISTORY: Postop right lower lobectomy. ? ?Chest tubes to water seal. COMPARISON: 11/09/06 11/11/05 FINDINGS: There is no evidence of residu al pneumothorax following right lower lobectomy. ??There is a mode rate amount of right base pleural and parenchymal disease. ??The l eft lung is clear and there is no left-sided pleural fluid. ??The cardi ac silhouette and pulmonary vascularity are normal. ??Two right-side d chest tube tips remain near the apex. D: ??11/10/06 T: ??11/11/06 /cathy Procedure Note Cristiano Chang MD - 04/07/2009 s/p RLL, eval for pneumo on water seal PA AND LATERAL CHEST 11/10/06 1457 HISTORY: Postop right lower lobectomy. C hest tubes to water seal. COMPARISON: 11/09/06 11/11/05 FINDINGS: There is no evidence of residu al pneumothorax following right lower lobectomy. There is a modera te amount of right base pleural and parenchymal disease. The lef t lung is clear and there is no left-sided pleural fluid. The cardiac silhouette and pulmonary vascularity are normal. Two right-sided chest tube tips remain near the apex. /cathy Performing Organization Address City/State/ZIP Code Phon e Number [facility] [address] [facility] [place] [address] [facility] [address] [place] [address] CHEST PA (11/09/2006 15:44 EST) Anatomical Region Laterality Modality Other Specimen Narrative [facility] - 04/07/2009 6: 13 EDT RIGHT THORACOTOMY, RIGHT LOWER LOBECTOMY R/O PTX ON RIGHT ON WATER SEAL PORTABLE CHEST: ??11/09/06, 1536 HISTORY: ??Post- right lower lobectomy. ??Chest tube to water seal. COMPARISONS: ??September 10, 2006 through November 08, 2006. FINDINGS: ??Two chest tubes remain in pl darryl, with the tips stable. There is no evidence of pneumothorax. ?? A moderate amount of postoperative pleural and parenchymal di sease is present in the right base. ??Platelike atelectasis in the lef t base has cleared. ??The cardiac silhouette and pulmonary vascula rity remain normal. IMPRESSION: ??No evidence of pneumothora x. D: ??11/09/06 T: ??11/10/06 /[facility] Procedure Note Cristiano Chang MD - 04/07/2009 RIGHT THORACOTOMY, RIGHT LOWER LOBECTOM Y R/O PTX ON RIGHT ON WATER SEAL PORTABLE CHEST: 11/09/06, 1536 HISTORY: Post- right lower lobectomy. Ch est tube to water seal. COMPARISONS: September 10, 2006 through F ebruary 2006. FINDINGS: Two chest tubes remain in plac e, with the tips stable. There is no evidence of pneumothorax. A moderate amount of postoperative pleural and parenchymal di sease is present in the right base. Platelike atelectasis in the left base has cleared. The cardiac silhouette and pulmonary vascula rity remain normal. IMPRESSION: No evidence of pneumothorax. /[facility] Performing Organization Address City/State/ZIP Code Phon e Number [facility] [address] [facility] [address] [facility] [address] [place], [place] [address] PORTABLE CHEST 1 VIEW (11/08/2006 13:31 EST) Anatomical Region Laterality Modality Other Specimen Narrative [facility] - 04/07/2009 6: 12 EDT MALIGNANT NEOPLASM BRONCH/LUNG, CXR ON WATER SEAL GLENDA FOR PNEUMO PORTABLE CHEST, ONE VIEW: ??11/08/06, 13 27 COMPARISON: ??11/06/06. CLINICAL HISTORY: ??Chest x-ray on water seal. ??Evaluate for pneumo. The patient is s/p right lower lobectomy for malignant neoplasm of the bronchus/lung. FINDINGS: ??Two right chest tubes are in place. ??The patient is s/p right lower lobectomy. ??There is some a telectasis noted in the right lung. ??I do not see evidence for pneumo thorax on this semi-recumbent study. ??Again noted is a density projec ting over the left lung, related to an old, unhealed rib fracture . IMPRESSION: ??No evidence of current pne umothorax. D: ??11/08/06 T: ??11/10/06 /[facility] Procedure Note Beverly Major MD - 04/07/2009 MALIGNANT NEOPLASM BRONCH/LUNG, CXR ON WATER SEAL GLENDA FOR PNEUMO PORTABLE CHEST, ONE VIEW: 11/08/06, 1327 COMPARISON: 11/06/06. CLINICAL HISTORY: Chest x-ray on water s eal. Evaluate for pneumo. The patient is s/p right lower lobectomy for malignant neoplasm of the bronchus/lung. FINDINGS: Two right chest tubes are in p lace. The patient is s/p right lower lobectomy. There is some ate lectasis noted in the right lung. I do not see evidence for pneumoth orax on this semi-recumbent study. Again noted is a density projecti ng over the left lung, related to an old, unhealed rib fracture . IMPRESSION: No evidence of current pneum othorax. /elizabeth Performing Organization Address [facility] Phon e Number [facility] [address] [facility] [address] [facility] [address] [place], [place] [address] (ABNORMAL) ELECTROLYTES (11/08/2006 4:28 EST) Pathologist Sig [facility] Sodium 130 (L) 136 - 145 mEq/L [facility] Potassium 4.2 3.5 - 5.0 mEq/L [facility] Chloride 102 96 - 110 mEq/L [facility] CO2 26 24 - 32 mEq/L [facility] Specimen Performing Organization Address [facility] Phon e Number [facility] [address] [place] [address] SERVICES [facility] [address] [place] [address] CREATININE (11/08/2006 4:28 EST) [facility] Creatinine 0.75 0.7 - 1.5 mg/dl [facility] GFR, Calculated >60 ml/min/1.73m2 [facility] Specimen Performing Organization Address [facility] Phon e Number [facility] [address] [place] [address] SERVICES [facility] [address] [place] [address] (ABNORMAL) HEMAGRAM AND DIFFERENTIAL (11/08/2006 4:28 EST) Pathologist [facility] WBC 11.69 4.0 - 12.4 K/cmm [facility] RBC 3.89 3.86 - 5.04 M/cmm [facility] Hemoglobin 11.5 (L) 11.6 - 15.2 gm/dl [facility] HCT 33.0 (L) 34.9 - 44.4 % [facility] MCV 85 81 - 98 fl [facility] MCH 29.5 26.7 - 33.3 pg [facility] MCHC 34.7 32.1 - 35.9 gm/dl [facility] PLT 254 141 - 320 K/cmm [facility] RDW-CV 14.2 11.7 - 14.6 % [facility] Neutrophils 80.3 (H) 45.5 - 79.7 % [facility] Lymphocytes 8.9 (L) 15.0 - 46.8 % [facility] Monocytes 8.4 1.8 - 12.0 % [facility] Eosinophils 1.9 0.6 - 6.9 % [facility] Basophils 0.5 0.2 - 1.4 % [facility] ABS Neutrophils 9.39 (H) 2.20 - 8.85 K/cmm [facility] ABS Lymphs 1.04 (L) 1.09 - 3.30 K/cmm [facility] ABS Monocytes 0.99 (H) 0.1 - 0.8 K/cmm [facility] ABS Eosinophils 0.22 0.03 - 0.61 K/cmm [facility] ABS Basophils 0.06 0.01 - 0.11 K/cmm [facility] Type of Diff: Automated [facility] Specimen Performing Organization Address City/State/ZIP Code Phon e Number [facility] [address] [place] [address] SERVICES [facility] [address] [place] [address] BUN (11/08/2006 4:28 EST) Pathologist Sig nature BUN 10 10 - 26 mg/dl [facility] Specimen Performing Organization Address City/State/ZIP Code Phon e Number [facility] [address] [place] [address] SERVICES [facility] [address] [place] [address] (ABNORMAL) ELECTROLYTES (11/07/2006 4:14 EST) Pathologist Sig nature Sodium 130 (L) 136 - 145 mEq/L [facility] Potassium 4.7 3.5 - 5.0 mEq/L [facility] Chloride 102 96 - 110 mEq/L [facility] CO2 26 24 - 32 mEq/L [facility] Specimen Performing Organization Address City/[facility]/ZIP Code Phon e Number [facility] [address] [place] [address] SERVICES [facility] [address] [place] [address] CREATININE (11/07/2006 4:14 EST) Pathologist Sig nature Creatinine 0.83 0.7 - 1.5 mg/dl [facility] GFR, Calculated >60 ml/min/1.73m2 [facility] Specimen Performing Organization Address City/State/ZIP Code Phon e Number [facility] [address] [place] [address] SERVICES [facility] [address] [place] [address] (ABNORMAL) HEMAGRAM AND DIFFERENTIAL (11/07/2006 4:14 EST) Pathologist Sig nature WBC 12.24 4.0 - 12.4 K/cmm [facility] RBC 4.09 3.86 - 5.04 M/cmm [facility] Hemoglobin 11.9 11.6 - 15.2 gm/dl [facility] HCT 34.4 (L) 34.9 - 44.4 % [facility] MCV 84 81 - 98 fl [facility] MCH 29.1 26.7 - 33.3 pg [facility] MCHC 34.7 32.1 - 35.9 gm/dl [facility] PLT 256 141 - 320 K/cmm [facility] RDW-CV 13.6 11.7 - 14.6 % [facility] Neutrophils 84.8 (H) 45.5 - 79.7 % [facility] Lymphocytes 7.1 (L) 15.0 - 46.8 % [facility] Monocytes 7.5 1.8 - 12.0 % [facility] Eosinophils 0.3 (L) 0.6 - 6.9 % [facility] Basophils 0.3 0.2 - 1.4 % [facility] ABS Neutrophils 10.38 (H) 2.20 - 8.85 K/cmm [facility] ABS Lymphs 0.87 (L) 1.09 - 3.30 K/cmm [facility] ABS Monocytes 0.92 (H) 0.1 - 0.8 K/cmm [facility] Eosinophils 0.03 0.03 - 0.61 K/cmm [facility] ABS Basophils 0.04 0.01 - 0.11 K/cmm [facility] Type of Diff: Automated [facility] Specimen Performing Organization Address City/[facility]/ZIP Code Phon e Number [facility] [address] [place] [address] SERVICES [facility] [address] [place] [address] BUN (11/07/2006 4:14 EST) Pathologist Sig nature BUN 16 10 - 26 mg/dl [facility] Specimen Performing Organization Address [facility] Phon e Number [facility] [address] [place] [address] SERVICES [facility] [address] [place] [address] MRSA MOLECULAR DETECTION (11/06/2006 14:01 EST) Specimen Nares [facility] Description LAB Result NEGATIVE for [facility] Methicillin Resistant LAB Staphylococcus aureus DNA by PCR. Report Status Final [facility] [id number] LAB Specimen Performing Organization Address [facility] Phon e Number [facility] [address] [place] [address] SERVICES [facility] [address] [place] [address] (ABNORMAL) HEMAGRAM (11/06/2006 11:32 EST) Pathologist Sig nature WBC 14.97 (H) 4.0 - 12.4 K/cmm [facility] RBC 4.10 3.86 - 5.04 M/cmm [facility] Hemoglobin 12.1 11.6 - 15.2 gm/dl [facility] HCT 34.9 34.9 - 44.4 % [facility] MCV 85 81 - 98 fl [facility] MCH 29.5 26.7 - 33.3 pg [facility] MCHC 34.7 32.1 - 35.9 gm/dl [facility] PLT 269 141 - 320 K/cmm [facility] RDW-CV 14.4 11.7 - 14.6 % [facility] Specimen Performing Organization Address [facility]/ZIP Code Phon e Number [facility] [address] [place] [address] SERVICES [facility] [address] [place] [address] (ABNORMAL) GLUCOSE, GLUCOMETER (11/06/2006 11:27 EST) Glucose, 139 (H) 70 - 100 [facility] Fingerstick mg/dl LAB Senior [employer]ic Design Engineer ID [id number] [facility] Test Performed by Nursing Services LAB Specimen Performing Organization Address City/State/ZIP Code Phon e Number [facility] [address] [place] [address] SERVICES [facility] [address] [place] [address] PORTABLE CHEST 1 VIEW (11/06/2006 11:07 EST) Anatomical Region Laterality Modality Other Specimen Narrative [facility] - 04/07/2009 6: 24 EDT s/p lobectomy right lower lobe check for ptx 11/06/06. ??07/29. PORTABLE CHEST X-RAY, ONE VIEW. CLINICAL HISTORY: ??Status post lobectom y, right lower lobe. Please evaluate for pneumothorax. COMPARISON: 02/17 and 09/10/06. FINDINGS: ??Endotracheal tube is in the mid trachea and there are two right-sided pleural tubes. ??No pneumoth orax is appreciated; however, this is a portable supine film and pneum othorax cannot be completely eliminated on this image. There is some mild bilateral lower lobe atelectasis and overall, the lungs are c lear. D: ??11/06/06 T: ??11/09/06 /. I have personally reviewed the images an d the above interpretation and agree with the findings. Procedure Note Pablo Willis MD / Patrick Kumar MD - 04/07/2009 s/p lobectomy right lower lobe check fo r ptx 11/06/06. 07/29. PORTABLE CHEST X-RAY, O NE VIEW. CLINICAL HISTORY: Status post lobectomy, right lower lobe. Please evaluate for pneumothorax. COMPARISON: 02/17 and 09/10/06. FINDINGS: Endotracheal tube is in the mi d trachea and there are two right-sided pleural tubes. No pneumothor ax is appreciated; however, this is a portable supine film and pneum othorax cannot be completely eliminated on this image. There is some mild bilateral lower lobe atelectasis and overall, the lungs are c lear. /[facility]. I have personally reviewed the images an d the above interpretation and agree with the findings. Performing Organization Address City/State/ZIP Code Phon e Number [facility] [address] [facility] [address] [facility] [address] [place], [place] [address] documented in this encounter Visit Diagnoses Not on filedocumented in this encounter
--- OUTSIDE RECORDS SUMMARY | 2022-02-21 01:08 | XMS_ITS | Encounter Summary ---
:1945 Author Organization [facility] Address [address] [place] [address] Care Team Providers Name Role Phone Unavailable Primary Care Provider Unavailable Reason for Visit Reason Onset Date Comments Fever 04/04/2018 Encounter Details Date Type Department Care Team Description 04/04/2018 Telephone [facility] Christina Degroot M D Fever Radiology - Main Cam pus [address] [facility] [address] [place] [address] [place] [address] [phone] (Wo rk) Social History Tobacco Use Types Packs/Day Years Used Date Current Every Day Smoker Cigarettes 0.5 50 Alcohol Use Standard Drinks/Week Comments Not Asked 0 (1 standard drink = 0.6 oz pure alcoho l) Sex Assigned at Date Recorded Not on file documented as of this encounter Miscellaneous Notes Telephone Encounter - Christina Degroot MD - 04/04/[address] Degroot spoke with Ms. Arguelles who was very pleasant and explained she was having a little cough (not productive), sore throat and temperature which measured 99.2 and 99.4 between last night and this morning. She wanted to make sure she could have her biopsy on Thursday despite these symptoms. We discussed resting, and staying hydrated today, and I advised calling back tomorrow if her temperature goes up above 100.4 or she is not feeling better to make a decision about the procedure. She was agreeable to this plan. documented in this encounter Plan of Treatment Not on filedocumented as of this encounter Visit Diagnoses Not on filedocumented in this encounter
--- OUTSIDE RECORDS SUMMARY | 2022-02-21 01:08 | XMS_ITS | Encounter Summary ---
:1945 Author Organization [facility] Address [address] [place] [address] Care Team Providers Name Role Phone Rene Walker MD Primary Care Provider Unavailable Encounter Details Date Type Department Care Team Description 03/26/2018 Results Only [facility]- Darvin Brady, [address] [facility] [address] [place] [address] (Wo rk) Social History Tobacco [...] Date/Time Associated Diagnosis Comme nts TSH Routine 03/26/2018 9:56 EDT Results for this procedure are i n the results section . T4 FREE Routine 03/26/2018 9:56 EDT Results for this procedure are i n the results section . documented in this encounter Results TSH (03/26/2018 9:56 EDT) TSH 2.14 0.47 - 4.68 [facility] Comment: uIU/ml LABORATORY SERVICES The results of this assay can be falsely lowered due to the consumption of Biotin. Specimen Blood Performing Organization Address City/State/ZIP Code Phon e Number [facility] [address] [place] [address] SERVICES T4 FREE (03/26/2018 9:56 EDT) Pathologist Sig nature T4, Free 1.3 0.8 - 2.2 ng/dl [facility] TORY SERVICES Specimen Blood Performing Organization Address City/State/ZIP Code Phon e Number [facility] [address] [place] [address] SERVICES documented in this encounter Visit Diagnoses Not on filedocumented in this encounter Care Teams Coat Room Attendant Relationship Specialty Start Date End Date Rene Walker MD PCP - General 11/22/1303/31/18 documented as of this encounter
--- OUTSIDE RECORDS SUMMARY | 2022-02-21 01:08 | XMS_ITS | Encounter Summary ---
:1945 Author Organization [facility] Address [address] [place] [address] Care Team Providers Name Role Phone Unavailable Primary Care Provider Unavailable Encounter Details Date Type Department Care Team Description 04/06/[address] [facility] Javier Armijo rt, Cardiovascular Unit MD [address] [facility] [address] [place] [address] [address] [phone] [place] [address] (Wo rk) Social History Tobacco Use Types Packs/Day Years Used Date Current Every Day Smoker Cigarettes 0.5 50 Smokeless Tobacco: Never Used Alcohol Use Standard Drinks/Week Comments No 0 (1 standard drink = 0.6 oz pure alcoho l) Sex Assigned at Date Recorded Not on file documented as of this encounter Last Filed Vital Signs Vital Sign Reading Time Taken Comments Blood Pressure 157/77 04/06/2018 1607 EDT Pulse - - Temperature 36.1 ??C (97 ??F) 04/06/2018 1630 EDT Respiratory Rate 16 04/06/2018 1607 EDT Oxygen Saturation 100% 04/06/2018 1607 EDT Inhaled Oxygen Concentration - - Weight 56.7 kg (125 lb) 04/06/2018 1208 EDT Height 163.8 cm (5' 4.5) 04/06/2018 1208 EDT Body Mass Index 21.12 04/06/2018 1208 EDT documented in this encounter Discharge Diagnoses Diagnosis R91.1 Solitary pulmonary nodule-R91.1[IC D-10-CM] documented in this encounter Discharge Instructions Kassandra De Anda RN - 07/10/2018 Interventional Radiology Discharge Instructions Following Your Lung Biopsy Date: 04/06/2018 Procedure Site - Left chest Physician Performing Procedure - Javier Armijo MD The results of your procedure will go to the provider who ordered the procedure. It may take 5-7 days for procedure results to come back. Aftercare: Activity: Leave the hospital in a wheelchair even if you feel well. Have someone drive you home. Rest today - you may resume normal activity tomorrow. Do not lift anything over 10 lbs. Diet: You may resume your usual diet. Do not drink alcohol for 24 hours. Medications: You may resume your usual medications. You may take tylenol (acetaminophen) for any discomfort you may have. Do not take any blood thinning medication for 24 hours after your procedure. (examples: Asprin, ibuprofen/NSAIDS, fish oil, Lovenox, Plavix, Xarelto, Arixtra, Pradaxa, Warfarin, etc). Bandage Check the dressing or Band-Aid throughout the day for any increase in drainage. Keep the Band-Aid ordressing dry for 24 hours, and replace it if necessary. If you notice any bleeding, apply pressure for 10 minutes and slowly release the pressure to see if the bleeding has stopped. Showering Do not take a shower until 24 hours after your procedure. After this time you may shower after removing the dressing. Gently wash your wound site with soap and water. You may keep the wound site open to air, or use a bandaid to cover the site if there is any drainage. Do not take a tub bath, swim, or soak in a hot tub for 5 days. When to Contact the [facility] (call [phone] for severe symptoms): 1. Increased shortness of breath 2. Chest, upper back, or shoulder pain (take tylenol for mild pain) 3. If you cough up more than 2 tablespoons of blood 4. Dizziness 5. Heavy bleeding at wound site 6. Symptoms of infection: pain, redness, drainage or swelling at the puncture site or if you developa fever greater than 101F (38.5C) and/or shaking chills. If you have any questions or concerns regarding the procedure, or if you have developed any of the symptoms above, please call the [facility] Interventional Radiology clinic at , OPTION #3. SOMEONE IS AVAILABLE TO TAKE YOUR CALL 24 HOURS A DAY. documented in this encounter Medications at Time [...] or Self Care documented in this encounter Progress Notes Michelle Pacheco, RN - 04/06/2018 9378 EDT At 1419 pt admitted to CVU per stretcher from IR status post lung biopsy. Bed in lowest position. Side rails up. Call cali within reach. at bedside. Patient demonstrates willingness and understanding of post-procedure instructions. 1515 Voided on bedpan without difficulty. 1558 Now leaving unit for CXR 1605 Returned from CXR 1620 Patient may be discharge at this time per Dr Armijo. Tolerating PO solids and PO fluids well 1635 Discharge instructions reviewed with patient and her . Patient and verbalize understanding and deny nay questions or concerns at this time. IV DC. Now getting dressed to go home. 1650 Now leaving unit to go home with her via wheelchair and transport Kassandra Browne RN - 04/06/2018 1211 EDT Pt received from CVU to CT [address] at 1303. Consent obtained and pt name and verified using armband and verbally. Patients allergies, medications and lab results reviewed. IV site checked for patency. Pt educated on Lung Biopsy procedure and sedation side effects explained, pt verbalized understanding. Pt in prone position on table, safety straps in place. VS assessed. Sterile prep of left posterior chest completed with chloraprep by RRW in the usual sterile fashion in compliance with manufacturers recommendation. Time out done with all staff in room prior to start of procedure ([facility]/RRW/). Conscious sedation started at 1320. Pt monitored throughout procedure. Patient received 1.5 mg of Versed and 150 mcg Fentanyl over 25 minutes. VS stable. Procedure completed by RRW. Lung biopsy specimen taken to lab by cytopath tech. DSD applied to biopsy site. Pt tolerated well. See MD note for procedure details. Report given to DOMENIC Padilla in CVU. Pt transferred to CVU in stable condition. Anne Norman RN - 04/06/2018 1150 EDT Gianna Alvarado arrived to the Cardiovascular Unit via ambulation . Patient alert and oriented x3. Transfers to stretcher independently. Patient greeted and identified per [facility] policy. Allergies and procedure verified & patient oriented to Unit. Reviewed all pre-procedure instructions with Gianna Alvarado. All questions answered & patient verbalizes willingness and unders tanding of pre-procedure education. Patient stretcher in low position with side rails up & call cali within patient reach. Patient's family is at bedside. Gracie Abrams RN - 04/04/2018 1229 EDT Pre procedure phone call was made to patient regarding their upcoming appointment on 04/06. I spoke with pt and relayed the following information. Instructions were repeated back to this RN: Plan: -Go to registration on 3rd floor at 1145 (still need to go here even if pre- registered on phone) -Do not eat any food after 0600 DOP -Patient may have clears from 0600 until 1000 (water, clear juices like apple or cranberry, black coffee or black tea, jello, carbonated beverages) -After 1000, nothing by mouth (meds ok w/ sip h20) -Medications - Pt should take prescribed medications. Meds to hold: none per mar Pt should not take ibuprofen (Motrin, Advil) for 24 hours prior to the procedure, naproxen (Aleve) for 2 days before, or full strength aspirin or medicine with aspirin in it for 5 days before the procedure. If pt is on baby asa, this is ok to continue. Tylenol (acetaminophen) may be taken for pain. -Due to sedation patient must have a straddle bug driver (bus or taxi is not allowed) - Bring a list of current medications/allergy list -Bring CPAP if applicable -Shower night before or morning of procedure -Leave all valuables/medications at home (pt's with hearing aids should bring them) Pt reports fever, sore throat/head foggy. Pt is aware she will need to reschedule if she has a fever > 100.4/uncontrollable cough. No barriers. documented in this encounter H&P Notes Javier Armijo MD - 04/06/2018 1300 EDT Sedation for Procedure History & Physical Date: 04/06/2018 Time: 13:00 Location: M1 Planned Procedure: CT guided LLL lung biopsy Chief Complaint/Indications for Procedure: enlarging b/l pulmonary nodules History: former smoker s/p RLLobectmy for NSCLC with enlarging b/l pulmonary nodules as well as a slower growing larger mixed attenuation lesion within the LLL. Previous Complication with Sedation and/or Anesthesia? No Allergies: Allergies Allergen Reactions ??? Penicillins Current Medications: Prescriptions Prior to Admission Medication Sig Dispense Refill Last Dose ??? amitriptyline (ELAVIL) 100 mg tablet Take 100 mg by mouth at bedtime. 04/05/2018 at 1700 ??? aspirin 81 mg EC tablet Take 81 mg by mouth daily. Past Week at Unknown time ??? AZITHROMYCIN ORAL Take 250 mg by mouth 2 tabs day #1 then 1 tab day #2 (started 11/22/13) . Past Month at Unknown time ??? b complex vitamins (VITAMIN B COMPLEX) capsule Take 1 Cap by mouth daily. 04/06/2018 at 0500 ??? Cod Liver Oil Oil Take 1 Cap by mouth daily. 04/06/2018 at 0500 ??? D-METHORPHAN/PE/ACETAMINOPHEN (VICKS DAYQUIL ORAL) Take by mouth as needed. More than a month atUnknown time ??? diclofenac sodium (VOLTAREN) 1 % Gel Apply topically 3 times daily. More than a month at Unknowntime ??? DM/P-EPHED/ACETAMINOPH/DOXYLAM (NYQUIL ORAL) Take by mouth as needed. More than a month at Unknown time ??? DULoxetine (CYMBALTA) 60 mg capsule Take 60 mg by mouth daily. 04/06/2018 at 0500 ??? furosemide (LASIX) 40 mg tablet Take 20 mg by mouth daily. 04/05/2018 at am ??? morphine (KARLOS) 30 mg ER capsule, pellets Take 30 mg by mouth 4 times daily. 04/06/2018 at 0500 ??? omeprazole (PRILOSEC) 20 mg capsule Take 20 mg by mouth daily. 04/05/2018 at 1700 ??? PEG 3350-Electrolytes (MIRALAX) 17 gram packet Take 34 g by mouth daily. 04/05/2018 at 1700 ??? potassium chloride SA (K-DUR, KLOR-CON M10) 10 mEq tablet Take 10 mEq by mouth 2 times daily. 04/06/2018 at 0500 ??? simvastatin (ZOCOR) 20 mg tablet Take 20 mg by mouth at bedtime. 04/05/2018 at 1700 Past Medical History: Past Medical History: Diagnosis Date ??? COPD (chronic obstructive pulmonary disease) (HCC-CMS) ??? Fibromyalgia ??? Hyperlipidemia ??? Hypertension ??? Multiple sclerosis (HCC-CMS) Social History: Past Surgical History: Procedure Laterality Date ??? APPENDECTOMY ??? CARPAL TUNNEL RELEASE bilateral ??? CHOLECYSTECTOMY ??? HYSTERECTOMY ??? LUNG REMOVAL, PARTIAL ??? MASTECTOMY, RADICAL bilateral ??? TOENAIL EXCISION Social History Substance Use Topics ??? Smoking status: Current Every Day Smoker Packs/day: 0.50 Years: 50.00 Types: Cigarettes ??? Smokeless tobacco: Never Used ??? Alcohol use No Family History: Family History Problem Relation Age of Onset ??? Stroke Mother ??? Heart Disease Father Review of Systems as pertinent: Physical: Vital Signs: BP (!) 154/62 (BP Cuff Location: Right arm, Patient Position: Semi fowlers) Temp (!) 35.2 ??C (95.4 ??F) (Tympanic) Resp 16 Ht 163.8 cm (64.5) Wt 56.7 kg (125 lb) SpO2 100% BMI 21.12 kg/m2 Heart Examination: Cardiac Regularity: Regular Respiratory Examination: Respiratory Pattern: Regular Breath Sounds Right: Rhonchi Breath Sounds Left: Rhonchi Additional physical exam related to the proposed procedure, patient activity, disease state and treatment as pertinent: Assessment: Previous complications with sedation or anesthesia?: No Airway Concerns: None Anesthesia Classification: ASA 3 Plan: CT guided LLL lung biopsy. Fasting Time: Time of last liquid intake: 1000 Date of Last Liquid Intake: 04/06/18 Time of last solid intake: 0530 Date of last solid intake: 04/05/18 Patient Appropriate Candidate for Planned Sedation?: Yes Javier Armijo MD 04/06/2018 13:00 documented in this encounter Procedure Notes Javire Armijo MD - 04/06/2018 1421 EDT IR Procedure Note Procedure: CT guided LLL lung biopsy Date Performed: 04/06/2018 Radiologist/Unemployment Examiner(s): Leah Sedation/Anesthesia: Moderate Time Out: A time-out was completed prior to procedure verifying correct patient, procedure, site, positioning, and special equipment if applicable. Estimated Blood Loss: Unless otherwise noted, there was no blood loss, specimens removed, cultures obtained, or drains retained. Specimens: Multiple 22G FNA and 20G core biopsies. Complications: None Condition: Stable Post Procedure Diagnosis: Multiple b/l pulmonary nodules. Findings: Malignant cells. Recommendations: CXR in 2hrs, keep supine, npo, 2L NC. Javier Armijo MD 04/06/2018 14:21 documented in this encounter Plan of Treatment Scheduled Orders Name Type Priority Associated Diagnoses Order S chedule CYTOLOGY Pathology Routine One Time for 1 (NON-GYNECOLOGIC Occurrences starting INCLUDING FLUIDS AND 018 until FINE NEEDLE 04/06/2018 ASPIRATION)- ORDER ONLY SURGICAL PATHOLOGY- Pathology Routine One Time for 1 ORDER ONLY Occurrences sta rting 04/06/2018 unti l 04/06/2018 documented as of this encounter Procedures Procedure Name Priority Date/Time Associated Comments Diagnosis PATHOLOGY - SCANNED 04/29/2018 8:26 EDT GPST REPORT Routine 04/08/2018 0:00 Results for this EDT procedure are i n the results section. GPST SEQUENCING Routine 04/08/2018 0:00 Results f or this EDT procedure are i n the results section. GPST HYBRIDIZATION Routine 04/08/2018 0:00 Result s for this EDT procedure are i n the results section. GPST AMPLIFICATION Routine 04/08/2018 0:00 Result s for this EDT procedure are i n the results section. GPST PRE AMPLIFICATION Routine 04/08/2018 0:00 Re sults for this EDT procedure are i n the results section. GPST EXTRACTION Routine 04/08/2018 0:00 Results f or this EDT procedure are i n the results section. CHEST PA Routine 04/06/2018 16:06 Results for this EDT procedure are i n the results section. SURGICAL PATHOLOGY Routine 04/06/2018 15:24 Resul ts for this EDT procedure are i n the results section. PROTIME STAT 04/06/2018 12:00 Results for this EDT procedure are i n the results section. PLATELET COUNT STAT 04/06/2018 12:00 Results f or this EDT procedure are i n the results section. CYTOPATHOLOGY Routine 04/06/2018 0:00 Results for this EDT procedure are i n the results section. documented in this encounter Results PATHOLOGY - SCANNED (04/29/2018 8:26 EDT) Specimen Narrative This result has an attachment that is no t available. GPST REPORT (04/08/2018 0:00 EDT) Reporting Status Sample quantity [facility] insufficient for LABORATORY testing.Comment: SERVICES Cancelled by Pathologist Specimen Other Performing Organization Address City/State/ZIP Code Phon e Number [facility]AT[facility] [address] [place] [address] SERVICES GPST SEQUENCING (04/08/2018 0:00 EDT) Sequencing Status Sample [facility] insufficient for LABORATORY testing.Comment: SERVICES Cancelled by Pathologist Specimen Other Performing Organization Address City/[facility]/ZIP Code Phon e Number [facility] [address] [place] [address] SERVICES GPST HYBRIDIZATION (04/08/2018 0:00 EDT) Hybridization Status Sample [facility] insufficient for CENTER LABORATORY testing.Comment: SERVICES Cancelled by Pathologist Specimen Other Performing Organization Address City/State/ZIP Code Phon e Number [facility] [address] [place] [address] SERVICES GPST AMPLIFICATION (04/08/2018 0:00 EDT) Amplification Status Sample quantity [facility] insufficient for CENTER LABORATORY testing.Comment: SERVICES Cancelled by Pathologist Specimen Other Performing Organization Address City/State/ZIP Code Phon e Number [facility] [address] [place] [address] SERVICES GPST PRE AMPLIFICATION (04/08/2018 0:00 EDT) Pre Amplification Sample quantity [facility] insufficient for CENTER LABORATORY testing.Comment: SERVICES Cancelled by Pathologist Specimen Other Performing Organization Address City/[facility]/ZIP Code Phon e Number [facility] [address] [place] [address] SERVICES GPST EXTRACTION (04/08/2018 0:00 EDT) Extraction Status Sample [facility] insufficient for LABORATORY testing.Comment: SERVICES Cancelled by Pathologist Specimen Other Performing Organization Address City/State/ZIP Code Phon e Number [facility] [address] [place] [address] SERVICES CHEST PA (04/06/2018 16:06 EDT) Anatomical Region Laterality Modality Other Specimen Narrative [facility] - 04/06/2018 16:26 EDT CHEST 1 VIEW ??04/06/2018 4:06 PM Clinical History/Comments: Pneumothorax, s/p LLL lung biopsy Comparison: CT 04/06/2018 and 03/11/2018 Findings: Upright dual-energy frontal radiograph w as obtained. There is no evidence of pneumothorax following left lung biopsy. The biopsied nodule is not discernible. Linear areas of scarring are present in the lower half of the right lung. Ill-de fined opacity in the left midlung corresponds to mixed solid and c ystic lesion in that region. The cardiac silhouette and pulmonary vas cularity are normal. Procedure Note Cristiano Chang MD - 04/06/2018 CHEST 1 VIEW 04/06/2018 4:06 PM Clinical History/Comments: Pneumothorax, s/p LLL lung biopsy Comparison: CT 04/06/2018 and 03/11/2018 Findings: Upright dual-energy frontal radiograph w as obtained. There is no evidence of pneumothorax following left lung biopsy. The biopsied nodule is not discernible. Linear areas of scarring are present in the lower half of the right lung. Ill-de fined opacity in the left midlung corresponds to mixed solid and c ystic lesion in that region. The cardiac silhouette and pulmonary vas cularity are normal. Performing Organization Address City/State/ZIP Code Phon e Number [facility] SURGICAL PATHOLOGY (04/06/2018 15:24 EDT) Pathology SURGICAL PATHOLOGY REPORT [facility] MEDICAL Report: CENTER Reports generated via electronic interface contain lulu ginal data; LABORATORY however they are lacking the format of the original re port. SERVICES Caution should be taken when reading/interpreting unfo rmatted reports. Name: ? IWONA ALVARADO PERFECTO Mary ? Accession #: ? [id number] ? : ? 1945 (Age: 72) ??F ?Collect Date: ? 04/06/2018 ? Location: ? CVUI ? Receive Date: ? 04/06/20 18 ? Provider: JAVIER ARMIJO MD Copy to: FELIZ BOWENS MD ? Final Pathologic Diagnosis: LUNG, LEFT, LOWER LOBE, NEEDLE CORE BIOPSY: - Markedly atypical epithelial cells consistent with a denocarcinoma, lung primary. See comment. Comment: Corporate Safety Manager slides from the prior hayden g adenocarcinoma ([id number]) and breast adenocarcinoma ([id number]) were reviewed in correlation with the current material. Immunoperoxidase stains were performed on this case to further characterize the lesion, and the immunoreactivity profile supports the diagnosis IMMUNOHISTOCHEMISTRY:. ANTIBODY(CLONE)(BLOCK):RESULT TTF-1 (8G7G3/1, [place]) (1): Positive GATA3 (L50-823, [place]) (1): Negative P40 (BC28, [place]) (1): Negative NOTE: ??One or more of the reagents used in imm unoperoxidase testing in this case may not have been cleared or approved by the U.S. Food and Drug Administration (FDA). ??The FDA has determined that such clearance or approval is not necessary. ??These tests are used for clinical purposes. ??They should not be regarded as investigational or for research. ??These r eagents' performance characteristics have been de termined by [facility] and/or by the referring labo lara. ??The positive and negative controls worked appropriately. If immunopero xidase staining has been performed on alcohol fixed cytology specimens, which has not been fully validated , the assays should be interpreted with caution and correlated with clinical data. ??This laboratory is certified under the Clinical Laboratory Improvement Amendments of 1988 (CLIA-88) as qualified to perform high complexity clinical labor atory testing. Dr. Kim 04/07/2018 11:13 AM ? Document reviewed and electronically signed by: ? Vicente Corcoran MD ? Report ??Date: 04/08/2018 16:36 By the signature above, the attending physician certif ies that he/she has personally conducted a gross and/or microscopic examin ation of the described specimens and rendered or confirmed the above diagnosi s. Clinical History: Former smoker, hx of breast cancer, S/P RLL lobectomy for NSCLC with enlarging b/l pulmonary nodules as well as a slower growing larg er mixed attenuation lesion within the LLL ? Gross Description: ? Received in formalin labelled with proper patient identification (initials S, C) and not otherwise specified are three sutherland-white delicate needle cores ranging from 0.2-0.4 cm in l ength by less than 0.1 cm in diameter. The specimens are submitted entirely in 1 and 2. JORGE Hernandez ([facility]) 04/06/2018 3:43 PM ? PD-L1 IMMUNOHISTOCHEMICAL ASSAY ? Date Ordered: ? 04/12/2018 ? Status: ?? Signed Out ?Date Complete: ? 04/14/2018 ? By: ??Don Tse ? Date Reported: ? 04/14/2018 ? Interpretation PD-L1 Tumor Proportion Score (TPS): ??91-100% Description Tissue submitted: Paraffin e mbedded tissue blocks labelled [id number] (#1 and #2) from [facility] as par t of the Advanced Lung reflex testing. PD-L1 Tissue Source and Diagnosis from Pathology Report: ??Left lower lobe of lung; adenocarcinoma ? Description: ? PDL-1 protein expression is determined by using Tumor Proportion Score (TPS), which is the percentage of viable tumor cells showing partial or complete membrane staining at any intensity. PDL-1 SP263 by Immunohistochemical with Interpretation is a quantitative assay using Monoclonal Mouse Anti- PD-L1, Clone SP263 intended for use in the detection of PD-L1 protein in 10% neutral buffered formalin-fixed for more than 6 hours, and paraffin-embedded tissue. The assay was performed under appropriate conditions and tissue controls using the Miscotae ction System on the [employer] Bench[employer] Ultra. The specimen submitted for testing should contain at least 100 viable tumor cells to be considered adequate . NOTE: ??One or more of the reagents used in imm unoperoxidase testing in this case may not have been cleared or approved by the U.S. Food and Drug Administration (FDA). ??The FDA has determined that such clearance or approval is not necessary. ??These tests are used for clinical purposes. ??They should not be regarded as investigational or for research. ??These r eagents' performance characteristics have been de termined by [facility] and/or by the referring labo lara. ??The positive and negative controls worked appropriately. If immunopero xidase staining has been performed on alcohol fixed cytology specimens, which has not been fully validated , the assays should be interpreted with caution and correlated with clinical data. ??This laboratory is certified under the Clinical Laboratory Improvement Amendments of 1988 (CLIA-88) as qualified to perform high complexity clinical labor atory testing. ? For more information, please refer to practice guideli dhara published by the National [employer] (NCCN) at www.nccn.org/professionals/physician_gls/ Document reviewed and electronically signed by: ? AILEEN RUSH MD ? Report date: 04/14/2018 By the signature above, the attending physician certif ies that he/she has personally conducted a gross and/or microscopic examin ation of the described specimens and rendered or confirmed the above diagnosi s. End of Report Specimen Performing Organization Address City/State/ZIP Code Phon e Number [facility] [address] [place] [address] SERVICES PLT (04/06/2018 12:00 EDT) Pathologist Sig nature PLT 275 141 - 377 K/cmm [facility] LABORA TORY SERVICES Specimen Blood specimen (specimen) - Blood Performing Organization Address City/State/ZIP Code Phon e Number [facility] [address] [place] [address] SERVICES PROTIME (04/06/2018 12:00 EDT) Pro Time 11.2 10.3 - 13.4 [facility] secs LABORATORY SERVICES I.N.R. 1.0 0.9 - 1.1 [facility] Comment: Ratio LABORATORY SERVICES Moderate Intensity Coumadin INR = 2.0-3.0 Adjustments in anticoagulant therapy dose should be based upon the INR and NOT the Pro Time. Specimen Blood specimen (specimen) - Blood Performing Organization Address City/State/ZIP Code Phon e Number [facility] [address] [place] [address] SERVICES CYTOPATHOLOGY (04/06/2018 0:00 EDT) Pathology CYTOPATHOLOGY REPORT [facility] MEDICAL Report: CENTER Reports generated via electronic interface contain lulu ginal data; LABORATORY however they are lacking the format of the original re port. SERVICES Caution should be taken when reading/interpreting unfo rmatted reports. Name: ? GIANNA ALVARADO ? Accession #: ? [id number] : ? 1945 (Age: 72) ??F ?Collect Date: ? 04/06 Location: ? [facility] ? Receive Date : ? 04/06/2018 Provider: ? JAVIER ARMIJO MD Copy to: ?MARK BOWENS MD ? Pelon Garcia RN ([phone] [id number]) ? CYTOLOGIC DIAGNOSIS: LUNG, LEFT UPPER LOBE, 0.8 CM NODULE, CT GUIDED FINE N EEDLE ASPIRATION: - Non-small cell carcinoma, adenocarcinoma, cons istent with lung primary. See comment. ? COMMENT: The aspirate slides are moderately cellular and demons trate a population of malignant epithelial cells. The cells ar e present in small, crowded groupings. Cells display irregular nuclear membranes and prominen t nucleoli with a pale chromatin pattern. There is a moderate amount of cytoplasm. ??Please see also the concurrent core biopsy ([id number]) upon which diagnost ic immunohistochemical stains are performed. The cell block demonstrates only rare malignant cells. Deeper levels of the cell block have bee n examined. The prior right lower lobe lung resection ([id number]) as well as the prior left br east core biopsy ([id number]) have been reviewed. The advanced lung barbara col reflex testing has been ordered. ??This case wa s shown at intradepartmental consultation conference on 04/07/2018. (Dr. Gibbons)/linda Document reviewed and electronically signed by: ? JAY GIBBONS MD Report Date: ??04/09/2018 11:56 By the signature above, the attending physician certif ies that he/she has personally conducted a gross and/or microscopic examin ation of the described specimens and rendered or confirmed the above diagnosi s. Specimen Type: ? Lung, Fine Needle Aspiration, LLL, 0.8cm Clinical History: ? Former smoker and hx of breast cancer, S/P RLL lobecto my for NSCLC with enlarging bilaterall pulmona ry nodules as well as a slower growing larger mixed attenuation lesion within the LLL ? Rapid Interpretation: LUNG, LEFT UPPER LOBE, 0.8 CM, CT GUIDED FINE NEELE PIRATION: Evaluation episode #1: ??Passes 1-3: ??P ositive for malignant cells, non-small cell carcinoma, favor adenocarcinoma, low cellularity. Evaluation episode #2: ??Passes 4-6: ??Non-small cell carcinoma, favor adenocarcinoma. Additional dedicated passed requested for cell b lock. ??Cores also performed. Dr. Estephania Gibbons 04/06/2018 2:04 PM Gross Description: ? 14 fixed prepared slides, 3 air dried prepared s lides, and 1 tube of RPMI for cell block processing was received. ? End of Report Specimen Performing Organization Address City/State/ZIP Code Phon e Number [facility] [address] [place] [phone] SERVICES documented in this encounter Visit Diagnoses Not on filedocumented in this encounter Administered Medications Inactive Administered Medications - up to 3 most recent administrations Medication Order MAR Action Action Date Dose Rate Site acetaminophen (TYLENOL) suppository 650 mg 650 mg, rectal, EVERY 4 HOURS PRN, Starting on 03/28 at 1428, Until Thu04/06/18 at 1854, Pain, Routine, Postprocedure acetaminophen (TYLENOL) tablet 650 mg 650 mg, oral, EVERY 4 HOURS PRN, Startin g on Thu04/06/18 at 1428, Until Thu04/06/18 at 1854, Pain, Routine, Postprocedure fentaNYL citrate (PF) 50 mcg/mL injection Given 04/06/2018 14:10 EDT 150 mcg 25-250 mcg 25-250 mcg, intravenous, ONCE PRN, 1 dose, Starting on Thu04/06/18 at 1121, Until Thu04/06/18 at 1410, Pain, radiology, Routine, Intraprocedure midazolam (PF) (VERSED) 1 mg/mL injection Given 04/06/2018 14:10 EDT 1.5 mg 0.5-10 mg 0.5-10 mg, intravenous, ONCE PRN, 1 dose, Starting on Thu04/06/18 at 1121, Until Thu04/06/18 at 1410, Sedation, Routine, Intraprocedure ondansetron (PF) (ZOFRAN) injection 4 mg 4 mg, intravenous, EVERY 6 HOURS PRN, St arting on Thu04/06/18 at 1428, Until Thu04/06/18 at 1854, Nausea, Routine, Postprocedure sodium chloride 0.9 % (NS) Rate Documented 04/06/2018 14:35 EDT 50 mL/hr 50 mL/hr infusion at 50 mL/hr, 50 mL/hr, intravenous, CONTINUOUS, Starting on Thu04/06/18 at 1215, Until Thu04/06/18 at 1854, Routine, Preprocedure New Bag 04/06/2018 12:31 EDT 50 mL/hr 50 mL/hr documented in this encounter Active and Recently Administered Medications Times are shown in EDT. Continuous Medication Order 04/04/2018 04/05/2018 04/06/2018 sodium chloride 0.9 % (NS) infusion 1231 (New Bag - Provider: Anne Mariano, DOMENIC)1435 (Rate Documented - Provider: Michelle Pacheco RN)1615 (Completed - Provider: Michelle Pacheco RN) at 50 mL/hr, 50 mL/hr, intravenous, CONT INUOUS, Starting Thu04/06/18 at 1215, Until Thu04/06/18 at 1854, Routine PRN Medication Order 04/04/2018 04/05/2018 04/06/2018 acetaminophen (TYLENOL) suppository 650 mg(Linked Group 1) 650 mg, rectal, EVERY 4 HOURS PRN, Start ing Thu04/06/18 at 1428, Until Thu04/06/18 at 1854, Pain, Routine acetaminophen (TYLENOL) tablet 650 mg(Linked Group 1) 650 mg, oral, EVERY 4 HOURS PRN, Startin g Thu04/06/18 at 1428, Until Thu04/06/18 at 1854, Pain, Routine fentaNYL citrate (PF) 50 mcg/mL injection 25-250 mcg (COMPLETED) 1410 (Given - Provider: Kassandra Bowling RN - Comment: Given in 25 mcg increments throughout IR procedure) 25-250 mcg, intravenous, ONCE PRN, 1 dos e, Starting Thu04/06/18 at 1121, Until Thu04/06/18 at 2359, Pain, radiology, Routine midazolam (PF) (VERSED) 1 mg/mL injection 0.5-10 mg (COMPLETED) 1410 (Given - Provider: Kassandra Bowling RN - Comment: Given in 0.5 mg increments throughout IR procedure) 0.5-10 mg, intravenous, ONCE PRN, 1 dose , Starting e 04/06/18 at 1121, Until e 04/06/18 at 2359, Sedation, Routine ondansetron (PF) (ZOFRAN) injection 4 mg 4 mg, intravenous, EVERY 6 [address]RS PRN, St arting e 04/06/18 at 1428, Until Thu04/06/18 at 1854, Nausea, Routine Linked Groups Order Group 1: acetaminophen (TYLENOL) tablet 650 mgJump to med 650 mg, oral, EVERY 4 HOURS PRN, Startin g Thu04/06/18 at 1428, Until Thu04/06/18 at 1854, Pain, Routine Or acetaminophen (TYLENOL) suppository 650 mgJump to med 650 mg, rectal, EVERY 4 HOURS PRN, Start ing Thu04/06/18 at 1428, Until Thu04/06/18 at 1854, Pain, Routine documented in this encounter Orders Medications Ordered That Might Not Have Count Last Ord ered Date First Ordered Date Been Administered acetaminophen (TYLENOL) suppository 650 mg 04/06 acetaminophen (TYLENOL) tablet 650 mg 04/06/2018 ondansetron (PF) (ZOFRAN) injection 4 mg 1 018 Nursing Count Last Ordered Date First Ordered Date BEDREST 04/06/2018 INSERT PERIPHERAL IV 04/06/2018 NURSING COMMUNICATION 04/06/2018 OXYGEN THERAPY 04/06/2018 Transfer Count Last Ordered Date First Ordered Date NOTIFY PPS OF DISCHARGE COMPLETE 1 04/06/2018 Discharge Count Last Ordered Date First Ordered Date DISCHARGE PATIENT 04/06/2018 documented in this encounter
--- OUTSIDE RECORDS SUMMARY | 2022-02-21 01:08 | XMS_ITS | Encounter Summary ---
:1945 Author Organization [facility] Address [address] [place] [address] Care Team Providers Name Role Phone Rene Walker MD Primary Care Provider Unavailable Reason for Visit Reason Comments New Patient Visit left foot/toes red, swelling , painful, ult first Encounter Details Date Type Department Care Team Description 11/23/2013 Office Visit [facility] Demetrice Patrick Pai n in limb (Primary Vascular Surgery - Dx) [address] [address] [facility] [phone] [facility] [address] [place] [address] (Wo rk) Social History Tobacco Use Types Packs/Day Years Used Date Current Every Day Smoker Cigarettes 0.5 50 Alcohol Use Standard Drinks/Week Comments Not Asked 0 (1 standard drink = 0.6 oz pure alcoho l) Sex Assigned at Date Recorded Not on file documented as of this encounter Last Filed Vital Signs Vital Sign Reading Time Taken Comments Blood Pressure 132/82 11/23/2013 0915 EST Left Pulse 90 11/23/2013 0915 EST Temperature - - Respiratory Rate - - Oxygen Saturation - - Inhaled Oxygen Concentration - - Weight 67.6 kg (149 lb) 11/23/2013 0902 EST Height 160 cm (5' 3) 11/23/2013 0902 EST Body Mass Index 26.39 11/23/2013 0902 EST documented in this encounter Discharge Diagnoses Diagnosis 729.5 PAIN IN LIMB[ICD-9-CM] documented in this encounter Discharge Disposition Disposition Code Departure Means Destination Auto Discharge documented in this encounter Progress Notes Demetrice Patrick MD - 11/23/2013 0928 EST This office note has been dictated. DEMETRICE PATRICK MD 11/23/2013 9:[address] Walker: I am seeing Carly here today in the office, and we have been referred to see her for toe pain. Carly tells us that she had acute onset of red toes on her left foot and right foot and they resolved spontaneously over time. She is here in our clinic and really is asymptomatic. She is a smoker and she is not quite sure why she is here. She has not been to a picture enlarger as yet, but we did go over symptoms with her. She has no claudication-type symptoms. She has no rest pain type symptoms, never developed any ulcers on her feet. She is a smoker. No history of strokes or heart attacks as far as she knows. Past Medical History: Significant for hypertension and hypercholesterolemia, but no diabetes, no strokes, no heart attacks, no heart failure, no abnormal heart beat, no heart stents, no heart bypasses,no kidney failure. Review Of Systems: Otherwise completely negative, as evidenced on our intake form. She does smoke about a half pack and she smoked for over 50 years. Her mother and father had a stroke and heart disease respectively. She is allergic to PENICILLIN. She does take aspirin. She does not take Plavix. Objective: She is 5 feet 3 inches, 149 pounds. Her blood pressure is 130/80 bilaterally. She has gotno carotid bruits. Neck was supple, no masses. Lungs were relatively clear. Heart was regular. Bellywas soft, no pulsatile masses, no tenderness. No distention. She had good groin pulses bilaterally, good popliteal pulses and easily palpable pedal pulses. Her right foot she did have a ganglion. Therewere no identifiable lesions on either foot. We did review her PVRs, which were normal, both at rest and on exercise. Despite her risk factors, Carly really has no identifiable peripheral vascular disease, not quite sure what the toe pain wasdue to and it may pay well for her to visit a picture enlarger at some point. From a circulatory standpoint, she is on an aspirin a day. She does have risk factors, but at this point in time she has normal palpable pulses in both her hands and her feet. No identifiable aneurysm on physical exam. The only other study I would suggest is some type of carotid duplex or carotid imaging given her family history of stroke and given her risk factors. Sincerely, cc: 1. Dr Walker. 2. Michelle Decker. documented in this encounter Plan of Treatment Not on filedocumented as of this encounter Visit Diagnoses Diagnosis Pain in limb - Primary documented in this encounter Historical Medications This list may reflect changes made after this encounter. Medication Sig Dispensed Refills Start Date End Date amitriptyline (ELAVIL) Take 100 mg by mouth 0 100 mg tablet at bedtime. omeprazole (PRILOSEC) 20 Take 40 mg by mouth 0 mg capsule daily. DULoxetine (CYMBALTA) 60 Take 60 mg by mouth 0 mg capsule daily. AZITHROMYCIN ORAL Take 250 mg by mouth 0 01/27/2020 2 tabs day #1 then 1 tab day #2 (started 11/22/13) . D-METHORPHAN/PE/ACETAMINO Take by mouth as 0 05/16/2020 PHEN (VICKS DAYQUIL ORAL) needed. DM/P-EPHED/ACETAMINOPH/DO Take by mouth as 0 05/16/2020 XYLAM (NYQUIL ORAL) needed. diclofenac sodium Apply topically 3 0 01/27/2020 (VOLTAREN) 1 % Gel times daily. b complex vitamins Take 1 Cap by mouth 0 01/27/2020 (VITAMIN B COMPLEX) daily. capsule Cod Liver Oil Oil Take 1 Cap by mouth 0 05/16/2020 daily. aspirin 81 mg EC tablet Take 81 mg by mouth 0 11/06/2020 daily. PEG 3350-Electrolytes Take 34 g by mouth 0 01/27/2020 (MIRALAX) 17 gram packet daily. simvastatin (ZOCOR) 20 mg Take 20 mg by mouth 0 04/09/2021 tablet at bedtime. potassium chloride SA Take 10 mEq by mouth 0 05/16/2020 (K-DUR, KLOR-CON M10) 10 2 times daily. mEq tablet furosemide (LASIX) 40 mg Take 20 mg by mouth 0 02/07/2020 tablet daily. morphine (KARLOS) 30 mg Take 30 mg by mouth 0 01/27/2020 ER capsule, pellets 4 times daily. added in this encounter Care Teams Boardinghouse Keeper Relationship Specialty Start Date End Date Rene Walker MD PCP - General 11/22/1303/31/18 documented as of this encounter
--- OUTSIDE RECORDS SUMMARY | 2022-02-21 01:08 | XMS_ITS | Encounter Summary ---
:1945 Author Organization [facility] Address [address] [place] [address] Care Team Providers Name Role Phone Unavailable Primary Care Provider Unavailable Encounter Details Date Type Department Care Team Description 11/26/2006 Before PRISM Converted [facility] - Zoë Donnelly, Visit ([place]) [facility] [address] [place] [address] Social History Tobacco Use Types Packs/Day Years Used Date Never Assessed Sex Assigned at Date Recorded Not on file documented as of this encounter Consult Notes Wing Donnelly MD - 08/01/2009 0515 EST DIVISION OF RADIATION ONCOLOGY CONSULTATION - 11/26/2006 SITE AND HISTOPATHOLOGY Right lower lobe, non-small cell carcinoma. Status post lobectomy. Stage T2N0M0 with invasion of visceral pleura. HISTORY Carly Arguelles is a 61-year-old, [facility] resident, who is seen in radiation oncology today in consultation at the request of Dr. Darvin Mendez. Mrs. Arguelles has enjoyed relatively stable health and is postsurgical resection for a T2, non-small cell carcinoma of the right lower lobe. 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 She has seen Dr. Mendez, who has recommendedadjuvant chemotherapy, and she is here today to discuss adjuvant radiation therapy. The patient is here with her today. She has filled out a review of systems form, and this isreviewed with her. Essentially she tolerated her surgical procedure quite well. She has had no majorcomplications. MEDICATIONS She has a lengthy medication list including amitriptyline 100 mg at bedtime, amlodipine once daily, aspirin one daily, benazepril 20 mg daily, bupropion-SR once a day, simvastatin 10 mg daily, docusate, and morphine extended release tablet 30 mg twice a day, and ezetimibe 10 mg daily. SOCIAL HISTORY She did stop smoking last fall and has not smoked since. REVIEW OF SYSTEMS The patient does have a diagnosis of fibromyalgia and has generalized pain from her fibromyalgia. for which she takes morphine and has done so for many years. She says she cannot function without thesemedications. The patient denies headaches or double vision. She occasionally has some feeling of difficulty swallowing. She has had no major headache. She has had no cardiac history. She has history ofconstipation. Some history of incontinence of urination. She has history of migraines and depression. The remainder of the review of systems is negative. She has no history of major thyroid disease or diabetes. ALLERGY She reports allergy to penicillin. FAMILY HISTORY History of breast cancer in one aunt and throat cancer in her grandfather. PAST MEDICAL HISTORY Positive for MS, hypertension, fibromyalgia, arthritis, nervous condition with depression, migraines, elevated cholesterol, cramps, and severe muscular pain throughout the body. The patient had bilateral mastectomies for what appeared to be localized left breast carcinoma which was treated with surgery only. OBJECTIVE Onphysical examination weight is 224 pounds. General: Mrs. Arguelles is a pleasant, cooperative, and conversant, middle-aged woman who climbs the exam table with no distress. The head and neck shows no adenopathy. Intraorally, she has no lesions. She isedentulous. No palpable nodes in the neck or supracl avicular region. The lungs are clear. The incisions on the right lateral aspect of the chest wall and the drain sitesare healing well. Slightly crusted. No major nodularity. The heart has a regular rhythm with rate of100. Bilateral mastectomy scars. No lesions on the chest wall. Abdominal exam is unremarkable with alarge panniculus. Lower extremities show no edema. ASSESSMENT/PLAN patient has a relatively small, localized tumor of the lung, but extension to the pleura. I have reviewed her preoperative scans. I have discussed with her the option for localized radiation in order to prevent any growth in that area where the tumor was attached to the pleura. Although her risk is low, I think it is slightly increased. The patient is very much inclined to have treatment to prevent any regrowth. The area will be very localized and very posterior, and she should have very little morbidity with treatment. The patient has agreed with this. She will also have systemic therapy with Dr. Mendez. Signed by Wing Donnelly MD 11/27/2006 17:03 Oscar Donnelly MDmary Donnelly MD Wing Donnelly MD - Wing Donnelly MD Tomas - KKB Job ID: [id number] Document ID: [id number] cc: Juan Crabtree MD Cancer Data Registry MD Jerry Villa MD - Tomas Donnelly MD Tomas - kkb Job ID: [id number] Document ID: [id number] cc: Juan Crabtree MD Cancer Data Registry MD Jerry Villa MD documented in this encounter Plan of Treatment Not on filedocumented as of this encounter Visit Diagnoses Not on filedocumented in this encounter
--- OUTSIDE RECORDS SUMMARY | 2022-02-21 01:08 | XMS_ITS | Encounter Summary ---
:1945 Author Organization [facility] Address [address] [place] [address] Care Team Providers Name Role Phone Unavailable Primary Care Provider Unavailable Encounter Details Date Type Department Care Team Description 01/02/2009 Hospital Encounter [facility] - Deric Mendez MD [address] [facility] [address] [place] [address] [address] [place] [phone] (Wo rk) Social History Tobacco Use Types Packs/Day Years Used Date Never Assessed Sex Assigned at Date Recorded Not on file documented as of this encounter Discharge Disposition Disposition Code Departure Means Destination Home or Self Care documented in this encounter Plan of Treatment Pending Results Name Type Priority Associated Diagnoses Date/Ti me OUTSIDE CD - CT CHEST Imaging 2011 11:48 EST OUTSIDE CD - CT CHEST Imaging 2011 11:48 EST OUTSIDE IMAGES - CT CHEST Imaging 9:41 EDT Scheduled Orders Name Type Priority Associated Diagnoses Order S chedule OUTSIDE CD - CT CHEST Imaging ONCE f or 1 Occurrences starting 2011 OUTSIDE CD - CT CHEST Imaging ONCE f or 1 Occurrences starting 2011 OUTSIDE IMAGES - CT Imaging One Time for 1 CHEST Occurrences sta rting 02/23/2015 unti l 02/23/2015 documented as of this encounter Visit Diagnoses Not on filedocumented in this encounter
--- OUTSIDE RECORDS SUMMARY | 2022-02-21 01:08 | XMS_ITS | Encounter Summary ---
:1945 Author Organization [facility] Address [address] [place] [address] Care Team Providers Name Role Phone Unavailable Primary Care Provider Unavailable Encounter Details Date Type Department Care Team Description 04/29/2018 Hospital Encounter [facility] - Deric Mendez [facility] MD Margarito [address] [facility] [address] [place] [address] [address] [place] [phone] (Wo rk) Social History Tobacco Use Types Packs/Day Years Used Date Current Every Day Smoker Cigarettes 0.5 50 Smokeless Tobacco: Never Used Alcohol Use Standard Drinks/Week Comments No 0 (1 standard drink = 0.6 oz pure alcoho l) Sex Assigned at Date Recorded Not on file documented as of this encounter Discharge Diagnoses Diagnosis C34.32 Malignant neoplasm of lower lobe, left bronchus or lung-C34.32[ICD-10-CM] documented in this encounter Medications at Time [...]
--- OUTSIDE RECORDS SUMMARY | 2022-02-21 01:08 | XMS_ITS | Encounter Summary ---
:1945 Author Organization [facility] Address [address] [place] [address] Care Team Providers Name Role Phone Unavailable Primary Care Provider Unavailable Encounter Details Date Type Department Care Team Description 02/17/2006 Hospital Encounter [facility] Darvin Mendez Radiology - Main Abelardo Pimentel MD [address] [facility] [address] [place] [address] [address] [place] [address] (Wo rk) Social History Tobacco Use Types Packs/Day Years Used Date Never Assessed Sex Assigned at Date Recorded Not on file documented as of this encounter Discharge Disposition Disposition Code Departure Means Destination Home or Self Care documented in this encounter Plan of Treatment Not on filedocumented as of this encounter Procedures Procedure Name Priority Date/Time Associated Diagnosis Comme nts AFB CULTURE/SMEAR, Routine 02/17/2006 17:42 Resul ts for this OTHER EDT procedure are i n the results section. ANAEROBE Routine 02/17/2006 17:42 Results for this CULTURE/SMEAR(INC. EDT procedure are in AEROBES), FLUID the results section. FUNGUS CULTURE Routine 02/17/2006 17:42 Results f or this EDT procedure are i n the results section. documented in this encounter Results FUNGUS CULTURE, OTHER (02/17/2006 17:42 EDT) Specimen Description Fluid [facility] >1ml Result No fungi isolated [facility] Report Status Final [facility] [id number] Specimen Performing Organization Address City/State/ZIP Code Phon e Number [facility] [address] [place] [address] SERVICES [facility] [address] [place] [address] AFB CULTURE/SMEAR, OTHER (02/17/2006 17:42 EDT) Specimen Description Fluid [facility] >1ml Acid Fast No acid-fast [facility] bacilli seen Result No acid-fast [facility] bacilli isolated Report Status Final [facility] [id number] Specimen Performing Organization Address City/[facility]/ZIP Code Phon e Number [facility] [address] [place] [address] SERVICES [facility] [address] [place] [address] ANAEROBE CULTURE/SMEAR(INC. AEROBES), FLUID (02/17/2006 17:42 EDT) Specimen Description Fluid [facility] <1ml lung biopsy LAB Gram Smear Result No polys seen [facility] No mononuclear cells seen. LAB No bacteria seen Result No growth [facility] Report Status Final [facility] [id number] LAB Specimen Performing Organization Address City/[facility]/ZIP Code Phon e Number [facility] [address] [place] [address] SERVICES [facility] [address] [place] [address] documented in this encounter Visit Diagnoses Not on filedocumented in this encounter
--- OUTSIDE RECORDS SUMMARY | 2022-02-21 01:08 | XMS_ITS | Encounter Summary ---
:1945 Author Organization [facility] Address [address] [place] [address] Care Team Providers Name Role Phone Unavailable Primary Care Provider Unavailable Encounter Details Date Type Department Care Team Description 10/21/2006 Hospital Encounter [facility] MD Raghav 111 [facility] [address] [place], [place] [id number] [place] [address] [address] [place] [id number] (Wo rk) Social History Tobacco Use Types Packs/Day Years Used Date Never Assessed Sex Assigned at Date Recorded Not on file documented as of this encounter Discharge Disposition Disposition Code Departure Means Destination Auto Discharge documented in this encounter Plan of Treatment Not on filedocumented as of this encounter Procedures Procedure Name Priority Date/Time Associated Comments Diagnosis CHEST PA AND LATERAL 12/09/2006 10:15 Res ults for this EDT procedure are i n the results section. COMPLETE BLOOD COUNT Routine 10/21/2006 10:35 Res ults for this EST procedure are i n the results section. BUN Routine 10/21/2006 10:35 Results for this EST procedure are i n the results section. CREATININE Routine 10/21/2006 10:35 Results for this EST procedure are i n the results section. documented in this encounter Results CHEST PA AND LATERAL (12/09/2006 10:15 EDT) Anatomical Region Laterality Modality Other Specimen Narrative [facility] - 03/28/2009 10 :41 EDT s/p right thoracotomy lower lobectomy for lung cancer - r/o pneumothorax 512.8 pleural effusion 511. 8 CHEST PA ??Dec 09, 2006 10:15:27 AM Signs and Symptoms:: ??s/p right thoraco caitlin lower lobectomy for lung cancer - r/o pneumothorax 512.8 pleural effusion 511.8. Impression: 1. Interval improvement. Comparison: Since 11/10/2006, both right chest tubes have been removed. Architectural distortion seen i n the right and mid and lower zone with some minimal residual pleural thickening, that are expected finding findings following lobectomy. Ca llus about a healing rib fracture on the left is noted. Both lung s appear well inflated on today's exam. Procedure Note Tang Kumar MD - 03/28/2009 s/p right thoracotomy lower lobectomy f or lung cancer - r/o pneumothorax 512.8 pleural effusion 511. 8 CHEST PA Dec 09, 2006 10:15:27 AM Signs and Symptoms:: s/p right thoracoto my lower lobectomy for lung cancer - r/o pneumothorax 512.8 pleural effusion 511.8. Impression: 1. Interval improvement. Comparison: Since 11/10/2006, both right chest tubes have been removed. Architectural distortion seen i n the right and mid and lower zone with some minimal residual pleural thickening, that are expected finding findings following lobectomy. Ca llus about a healing rib fracture on the left is noted. Both lung s appear well inflated on today's exam. Performing Organization Address City/State/ZIP Code Phon e Number [facility] [address] [place] [facility] [address] [facility] [address] [place], [place] [address] CREATININE (10/21/2006 10:35 EST) Pathologist Sig nature Creatinine 0.98 0.7 - 1.5 mg/dl [facility] GFR, Calculated >60 ml/min/1.73m2 [facility] Specimen Performing Organization Address City/State/ZIP Code Phon e Number [facility] [address] [place] [address] SERVICES [facility] [address] [place] [address] (ABNORMAL) HEMAGRAM (10/21/2006 10:35 EST) Pathologist Sig nature WBC 7.11 4.0 - 12.4 K/cmm [facility] RBC 4.91 3.86 - 5.04 M/cmm [facility] Hemoglobin 14.2 11.6 - 15.2 gm/dl [facility] HCT 42.1 34.9 - 44.4 % [facility] MCV 86 81 - 98 fl [facility] MCH 28.8 26.7 - 33.3 pg [facility] MCHC 33.7 32.1 - 35.9 gm/dl [facility] PLT 323 (H) 141 - 320 K/cmm [facility] RDW-CV 13.9 11.7 - 14.6 % [facility] Specimen Performing Organization Address City/State/ZIP Code Phon e Number [facility] [address] [place] [address] SERVICES [facility] [address] [place] [address] BUN (10/21/2006 10:35 EST) Pathologist Sig nature BUN 17 10 - 26 mg/dl [facility] Specimen Performing Organization Address City/State/ZIP Code Phon e Number [facility] [address] [place] [address] SERVICES [facility] [address] [place] [address] documented in this encounter Visit Diagnoses Not on filedocumented in this encounter
--- OUTSIDE RECORDS SUMMARY | 2022-02-21 01:08 | XMS_ITS | Encounter Summary ---
:1945 Author Organization [facility] Address [address] [place] [address] Care Team Providers Name Role Phone Unavailable Primary Care Provider Unavailable Encounter Details Date Type Department Care Team Description 06/26/2018 Results Only [facility]- [facility] Unknown, Provider, (Wo rk) Social History Tobacco Use Types [...] Name Priority Date/Time Associated Diagnosis Comme nts CREATININE, ISTAT Routine 06/26/2018 11:46 Result s for this EDT procedure are i n the results section. documented in this encounter Results CREATININE, ISTAT (06/26/2018 11:46 EDT) Creatinine, i-STAT 0.8 0.6 - 1.3 [facility] mg/dl LABORATORY housekeeper child care ID [id number]: [facility] Test performed by LABORATORY Radiology SERVICES Imaging. Specimen Blood Performing Organization Address City/State/ZIP Code Phon e Number [facility] [address] [place] [address] SERVICES documented in this encounter Visit Diagnoses Not on filedocumented in this encounter
--- OUTSIDE RECORDS SUMMARY | 2022-02-21 01:08 | XMS_ITS | Encounter Summary ---
:1945 Author Organization [facility] Address [address] [place] [address] Care Team Providers Name Role Phone Unavailable Primary Care Provider Unavailable Encounter Details Date Type Department Care Team Description 06/24/2002 Hospital Encounter [facility]- Carey Howell MD [id number] [place] [phone] (Wo rk) Social History Tobacco Use Types [...]
--- OUTSIDE RECORDS SUMMARY | 2022-02-21 01:08 | XMS_ITS | Encounter Summary ---
:1945 Author Organization [facility] Address [address] [place] [address] Care Team Providers Name Role Phone Unavailable Primary Care Provider Unavailable Encounter Details Date Type Department Care Team Description 04/29/2018 Results Only [facility]- [facility] Unknown, Provider, (Wo rk) Social History [...] Procedure Name Priority Date/Time Associated Comments Diagnosis GLUCOSE, GLUCOMETER Routine 04/29/2018 10:42 Resu lts for this EDT procedure are i n the results section. documented in this encounter Results GLUCOSE, GLUCOMETER (04/29/2018 10:42 EDT) Glucose, 85 70 - 100 [facility] Fingerstick mg/dl LABORATORY SERVICES Cuff Setter ID [id number]: [facility] Test performed by LABORATORY Nuclear Medicine SERVICES Specimen Blood Performing Organization Address City/State/ZIP Code Phon e Number [facility] [address] [place] [address] SERVICES documented in this encounter Visit Diagnoses Not on filedocumented in this encounter
--- OUTSIDE RECORDS SUMMARY | 2022-02-21 01:08 | XMS_ITS | Encounter Summary ---
:1945 Author Organization [facility] Address [address] [place] [address] Care Team Providers Name Role Phone Unavailable Primary Care Provider Unavailable Encounter Details Date Type Department Care Team Description 04/06/2018 Results Only [facility]- Sundeep Mendez is RUIZ Pimentel MD [phone] [address] [facility] [address] [place] [address] (Wo rk) Social History Tobacco [...] Name Priority Date/Time Associated Diagnosis Comme nts IR BIOPSY GUIDANCE 04/06/2018 14:10 Resul ts for this EDT procedure are i n the results section. documented in this encounter Results IR BIOPSY GUIDANCE (04/06/2018 14:10 EDT) Anatomical Region Laterality Modality Other Specimen Narrative [facility] - 04/06/2018 14:49 EDT IR BIOPSY GUIDANCE ??04/06/2018 2:10 PM Clinical History/Comments: *CYTO* fna & core. CT guided LLL bx- ? CT, prone, LLL, cyto. 2 lesions, preferable bx the smaller sup s egment nodule, but may just do the semisolid lesion depending on CT window. ??Discussed with Dr. Mendez. ? Technique: After a detailed explanation of the risk s and benefits of the procedure as well as consideration of al ternative diagnostic methods including no further diagnostic procedur es, informed consent was obtained from the patient. A history and physical examination were performed for the purposes of administer ing conscious sedation, which was given during the continuous mo nitoring of blood pressure, respiratory rate, pulse, and oxygen satu rations. With the patient in the prone position, a series of scans were obtained of the mid chest confirming the presence of an 8mm nodule within the superior segment of the left lower lobe which was targeted for biopsy as planned. Addition al pulmonary nodules were again evident within both lungs. An appr opriate needle entry site was chosen by use of the CT gantry laser light and a trajectory planned on the CT console. ??The skin wa s then prepared and draped in the usual strict sterile fashion. Local anesthesia was provided by the use of 1% lidocaine, infiltrated in the soft tissues to the pleural surface. ??A 19-gauge, 5.1 cm lo ng ultrathin-walled needle was advanced through the posterior chest wall and placed with its tip within the posterior ??aspect of the left lower lobe nodule. ?? Multiple aspirates were then obtained wi th 22-gauge, 10 cm long Chiba needles and given to the cytopatho logist for evaluation. Dedicated aspirations were performed and placed into RPMI for creation of a cell block. In addition, 2 0-gauge core biopsies were performed through the lesion at the requ est of the on site cytopathologist. A repeat scan obtained immediately after the biopsy showed adjacent perilesional hemorrhage without hemoptysis. Lee were removed, hemostasis obtained, and a sterile dressing was placed. The patient tolerated the procedure well . ?? The patient was then placed in the supin e position and transferred to postprocedure recovery for monitoring . Impression: 1. Successful CT-guided aspiration and c ore biopsy of an 8 mm nodule within the left lower lobe. Procedure Note Bobby Lynn MD - 04/06/2018 IR BIOPSY GUIDANCE 04/06/2018 2:10 PM Clinical History/Comments: *CYTO* fna & core. CT guided LLL bx- ?? CT, prone, LLL, cyto. 2 lesions, preferable bx the smaller sup s egment nodule, but may just do the semisolid lesion depending on CT window. Discussed with Dr. Mendez. Technique: After a detailed explanation of the risk s and benefits of the procedure as well as consideration of al ternative diagnostic methods including no further diagnostic procedur es, informed consent was obtained from the patient. A history and physical examination were performed for the purposes of administer ing conscious sedation, which was given during the continuous mo nitoring of blood pressure, respiratory rate, pulse, and oxygen satu rations. With the patient in the prone position, a series of scans were obtained of the mid chest confirming the presence of an 8mm nodule within the superior segment of the left lower lobe which was targeted for biopsy as planned. Addition al pulmonary nodules were again evident within both lungs. An appr opriate needle entry site was chosen by use of the CT gantry laser light and a trajectory planned on the CT console. The skin was then prepared and draped in the usual strict sterile fashion. Local anesthesia was provided by the use of 1% lidocaine, infiltrated in the soft tissues to the pleural surface. A 19-gauge, 5.1 cm long ultrathin-walled needle was advanced through the posterior chest wall and placed with its tip within the posterior aspect of the l eft lower lobe nodule. Multiple aspirates were then obtained wi th 22-gauge, 10 cm long Chiba needles and given to the cytopatho logist for evaluation. Dedicated aspirations were performed and placed into RPMI for creation of a cell block. In addition, 2 0-gauge core biopsies were performed through the lesion at the requ est of the on site cytopathologist. A repeat scan obtained immediately after the biopsy showed adjacent perilesional hemorrhage without hemoptysis. Lee were removed, hemostasis obtained, and a sterile dressing was placed. The patient tolerated the procedure well . The patient was then placed in the supin e position and transferred to postprocedure recovery for monitoring . Impression: 1. Successful CT-guided aspiration and c ore biopsy of an 8 mm nodule within the left lower lobe. Performing Organization Address City/State/ZIP Code Phon e Number [facility] documented in this encounter Visit Diagnoses Not on filedocumented in this encounter
--- OUTSIDE RECORDS SUMMARY | 2022-02-21 01:08 | XMS_ITS | Encounter Summary ---
:1945 Author Organization [facility] Address [address] [place] [address] Care Team Providers Name Role Phone Unavailable Primary Care Provider Unavailable Encounter Details Date Type Department Care Team Description 04/11/2004 Hospital Encounter [facility] Tomas Mendoza [facility] DO [address] [facility] [address] [place] [address] [place] [address] (Wo rk) Social History Tobacco Use Types Packs/Day Years Used Date Never Assessed Sex Assigned at Date Recorded Not on file documented as of this encounter Discharge Disposition Disposition Code Departure Means Destination Auto Discharge documented in this encounter Plan of Treatment Not on filedocumented as of this encounter Procedures Procedure Name Priority Date/Time Associated Diagnosis Comme nts MR HEAD W/WO Routine 04/11/2004 21:21 Results for this CONTRAST EDT procedure are i n the results section. documented in this encounter Results MR HEAD W/WO CONTRAST (04/11/2004 21:21 EDT) Anatomical Region Laterality Modality Other Specimen Impressions [facility] - 06/08/2009 15 :53 EDT IMPRESSION: Stable appearance of multiple punctate s ubcortical and deep white matter lesions. Differential considerati ons continue to include MS, Lyme disease, [place], and vasculitis. COMPARISON: 03/21/03. HISTORY: Abnormal MRI. White matter lesions. Re-e valuate and consider MS, vasculitis, other. TECHNIQUE: Sagittal T1 and T2 FLAIR, axial T2 FLAIR , T2 FSE, DWI, gradient echo, T1 pre- and post-gadolinium images of e brain were obtained. FINDINGS: The ventricles and sulci are appropriate for age. Again noted are multiple bilateral foci of high T2 signa l within the periventricular and subcortical white matter. The lesion s are similar in appearance to the previous study. There continues t o be no enhancement following contrast administration. Again of note, no callosal septal lesions are identified. There is no mass effect or midline shift. No cytotoxic edema is identified on the dif fusion weighted images. No intracranial hemorrhage is noted. Flow v oids are demonstrated in all the major intracranial arteries and dura l venous sinuses. The orbits are grossly normal in appearance. dw Narrative [facility] - 06/08/2009 15 :53 EDT 58 YEAR OLD ABNORMAL MRI 03/22/03, WHITE MATTER LESIONS, RE- EVALUATE AND CONSIDER MS , VASCULITI S, OTHER ?MEDICARE ( PATHLINE [place] 348.8) MR HEAD: 04/11/04 Procedure Note Gracie August MD / Joaquín Mayer MD - 06/08/2009 58 YEAR OLD ABNORMAL MRI 03/22/03, WHITE MATTER LESIONS, RE- EVALUATE AND CONSIDER MS , VASCULITI S, OTHER MEDICARE ( PATHLINE [place] 348.8) MR HEAD: 04/11/04 IMPRESSION IMPRESSION: Stable appearance of multiple punctate s ubcortical and deep white matter lesions. Differential considerati ons continue to include MS, Lyme disease, [place], and vasculitis. COMPARISON: 03/21/03. HISTORY: Abnormal MRI. White matter lesions. Re-e valuate and consider MS, vasculitis, other. TECHNIQUE: Sagittal T1 and T2 FLAIR, axial T2 FLAIR , T2 FSE, DWI, gradient echo, T1 pre- and post-gadolinium images of th e brain were obtained. FINDINGS: The ventricles and sulci are appropriate for age. Again noted are multiple bilateral foci of high T2 signa l within the periventricular and subcortical white matter. The lesion s are similar in appearance to the previous study. There continues t o be no enhancement following contrast administration. Again of note, no callosal septal lesions are identified. There is no mass effect or midline shift. No cytotoxic edema is identified on the dif fusion weighted images. No intracranial hemorrhage is noted. Flow v oids are demonstrated in all the major intracranial arteries and dura l venous sinuses. The orbits are grossly normal in appearance. dw Performing Organization Address City/State/ZIP Code Phon e Number [facility] [address] [facility], [facility] [address] [facility] [address] [place], [place] [address] documented in this encounter Visit Diagnoses Not on filedocumented in this encounter
--- OUTSIDE RECORDS SUMMARY | 2022-02-21 01:08 | XMS_ITS | Encounter Summary ---
:1945 Author Organization [facility] Address [address] [place] [address] Care Team Providers Name Role Phone Unavailable Primary Care Provider Unavailable Encounter Details Date Type Department Care Team Description 12/09/2006 Before [facility] - Juan Crabtree Converted Visit Maple conversion MD Raghav (Maple) 111 [facility] [address] [place], [place] [id number] [place] [address] [address], [address] [place] [address] (Wo rk) Social History Tobacco Use Types Packs/Day Years Used Date Never Assessed Sex Assigned at Date Recorded Not on file documented as of this encounter Progress Notes Juan Crabtree MD - 08/01/2009 0220 EST DIVISION OF CARDIOTHORACIC SURGERY PROGRESS/FOLLOWUP NOTE - 12/09/[address] Dar[address] M[address]D. [address] [place] [address], [address] [place] [address] Dear Darvin: Carly Arguelles returned to the office today status post a right thoracotomy and right lower lobectomy on 11/06/06. As you recall her pathology revealed her to have a T2N0 lesion. Since her discharge she has done well. She denies any chest pain or shortness of breath. On physical exam her incisionis dry and intact. Her chest x-ray shows no evidence of an effusion or pneumothorax but there is a small amount of volume loss at the right base. Overall she has made an excellent recovery. She informs me that she is going to follow up with Dr. Caraballo begin radiation therapy and she will follow up with you regarding chemotherapy. Thank you for the opportunity to take part in the care of this patient. If I can provide any furtherinformation, please do not hesitate to contact me. Sincerely, Signed by Juan Crabtree MD 01/26/2007 10:18 Richy Crabtree, [facility]ENTER[facility]ictor m Crabtree MD Juan Crabtree MD - Everardo Crabtree MD P - Job ID: tape Document ID: [id number] cc: Darvin Mendez M.D.* Jerry Jauregui M.D.* Abdirahman Donnelly M.D.* documented in this encounter Plan of Treatment Not on filedocumented as of this encounter Visit Diagnoses Not on filedocumented in this encounter
--- OUTSIDE RECORDS SUMMARY | 2022-02-21 01:08 | XMS_ITS | Encounter Summary ---
:1945 Author Organization [facility] Address [address] [place] [address] Care Team Providers Name Role Phone Unavailable Primary Care Provider Unavailable Encounter Details Date Type Department Care Team Description 04/27/2007 Results Only [facility] - Deric Rosa, thompson MD [address] [facility] [address] [place] [address] [address] [place] [address] (Wo rk) Social History Tobacco Use Types Packs/Day Years Used Date Never Assessed Sex Assigned at Date Recorded Not on file documented as of this encounter Plan of Treatment Not on filedocumented as of this encounter Procedures Procedure Name Priority Date/Time Associated Diagnosis Comme nts TRANSFERRIN Routine 04/27/2007 15:30 EDT Results for this procedure are i n the results section . IRON Routine 04/27/2007 15:30 EDT Results for this procedure are i n the results section . FERRITIN Routine 04/27/2007 15:30 EDT Results for this procedure are i n the results section . documented in this encounter Results (ABNORMAL) TRANSFERRIN (04/27/2007 15:30 EDT) Pathologist Sig nature Transferrin 196 (L) 202 - 336 mg/dl [facility] Specimen Performing Organization Address City/State/ZIP Code Phon e Number [facility] [address] [place] [address] SERVICES [facility] [address] [place] [address] (ABNORMAL) IRON (04/27/2007 15:30 EDT) Pathologist Sig nature Iron 29 (L) 60 - 180 ug/dl [facility] Specimen Performing Organization Address City/State/ZIP Code Phon e Number [facility] [address] [place] [address] SERVICES [facility] [address] [place] [address] FERRITIN (04/27/2007 15:30 EDT) Pathologist Sig nature Ferritin 67 10 - 291 ng/mL [facility] Specimen Performing Organization Address City/[facility]/ZIP Code Phon e Number [facility] [address] [place] [address] SERVICES [facility] [address] [place] [address] documented in this encounter Visit Diagnoses Not on filedocumented in this encounter
--- OUTSIDE RECORDS SUMMARY | 2022-02-21 01:09 | XMS_ITS | CCD ---
:1945 Author Care Team Providers Name Role Phone RADHA VANN, CLEOPATRA Gómez Attending Physician Unavailable Vital Signs Unknown or Not Available. Allergies Allergy Code Allergy Type Reaction Status PENICILLINS (CLASS) 0 Drug allergy pt doesn't know Activ e TETRACYCLINE 63497 Drug allergy Active Procedures Unknown or Not Available. History of Immunizations Unknown or Not Available. Problems Problem Code Start Date Resolved Date Status CHRONIC AIRWAY OBSTRUCTION 75938311 A ctive HX OF BRONCHOGENIC MALIGNANCY 026289108 Active MULTIPLE SCLEROSIS 42785845 Active Hyperemesis 669101994 Active HTN 23468543 Active Acute respiratory failure with hypoxia 00516094 Active COPD with exacerbation 383948182 Activ e Cancer of lung 50241594 Active Acute CHF 12181484 Active Hypertension 96241357 Active Near syncope 097161268 Active Dehydration 21906491 Active High troponin I level 857085309 Active Acute exacerbation of COPD 467144025 08/07/2021 A ctive Results COMPREHENSIVE METABOLIC PANEL (CMP) - Co llect Date/Time: 05/09/2021 08:52 Test Name Code Test Result Test Units Test Ref Range GLUCOSE 2345-7 107 mg/dL L=70 H=116 BUN 3094-0 27 mg/dL L=6 H=25 CREATININE 2160-0 0.85 mg/dL L=0.51 H=0.95 SODIUM SERUM 2951-2 134 mmol/L L=136 H=145 POTASSIUM SERUM 2823-3 4.6 mmol/L L=3.4 H=5.2 CHLORIDE SERUM 2075-0 100 mmol/L L=96 H=110 CARBON DIOXIDE (CO2) 2028-9 33 mmol/L L=22 H= 34 ANION GAP 97511-6 0.8 mmol/L CALCIUM SERUM 98791-6 9.4 mg/dL L=8.2 H=10.2 BILIRUBIN TOTAL 1975-2 0.3 mg/dL L=0.0 H=1.3 ALK. PHOS. 6768-6 111 U/L L=46 H=116 SGOT (AST) 1920-8 12 U/L L=15 H=37 SGPT (ALT) 1742-6 19 U/L L=12 H=78 TOTAL PROTEIN 2885-2 6.0 gm/dL L=6.0 H=8.0 ALBUMIN 1751-7 3.2 gm/dL L=3.4 H=5.0 AGE 75 years eGFR (non-Afr.Amer.) 44390-4 65 mL/min eGFR (Afr-[place]) 35086-3 79 mL/min MAGNESIUM SERUM - Collect Date/Time: 08/2021 08:52 Test Name Code Test Result Test Units Test Ref Range MAGNESIUM 33732-0 1.8 mg/dL L=1.8 H=2.4 CBC W/ DIFFERENTIAL - Collect Date/Time: 05/09/2021 08:52 Test Name Code Test Result Test Units Test Ref Range WBC 6690-2 7.56 th/cmm L=5.00 H=10.00 NEUT % 78.4 % L=40.0 H=80.0 LYMPH % 9.5 % L=10.0 H=50.0 MONO % 83340-8 9.7 % L=2.0 H=12.0 EOS % 1.2 % L=0.0 H=8.0 BASO % 0.8 % L=0.0 H=3.0 IG % 2514-8 0.4 % L=0.0 H=1.1 NRBC % 84611-8 0.0 % L=0.0 H=0.0 NEUT abs count 751-8 5.9 th/cmm L=1.6 H=8.4 LYMPH abs count 731-0 0.7 th/cmm L=1.5 H=4.0 MONO abs count 742-7 0.7 th/cmm L=0.2 H=1.0 EOS abs count 711-2 0.1 th/cmm L=0.0 H=0.5 BASO abs count 704-7 0.1 th/cmm L=0.0 H=0.2 IG abs count 56126-7 0.0 th/cmm L=0.0 H=0.1 NRBC abs count 16421-3 0.0 mil/cmm L=0.0 H=0.0 RBC 789-8 3.74 mil/cmm L=3.90 H=5.40 HEMOGLOBIN 718-7 10.4 gm/dL L=12.0 H=16.0 HEMATOCRIT 4544-3 34 % L=37 H=47 MCV 787-2 92 fL L=82 H=92 MCH 785-6 27.8 pg L=27.0 H=31.0 MCHC 786-4 30.2 % L=32.0 H=36.0 RDW-SD 788-0 54.7 fL L=39.0 H=49.0 PLATELET COUNT 777-3 242 th/cmm L=150 H=450 Active Medications Medication Code Dose Units Frequency Route Modification Start Date/Time predniSONE 10MG 868484 1 TABLET DAILY ORAL 08/07/20 21 Oral Tablet 15:21 Prescription Detail TAKE 5 TABS ORAL FOR 2 DAYS, THEN 4 TABS FOR 2 DAYS, THEN 3 TABS FOR 2 DAYS, THEN 2 TABS FOR 2 DAYS, THEN 1 TAB FOR 2 DAYS Ipratropium 1218742 1 NEEDED INHALATION 021 15:20 [place]-Albuterol Sulfate FOUR TIMES A 0.5MG/3ML-3MG/3ML DAY Inhalation Solution Prescription Detail 1 INHALATION NEEDED FOUR TIMES A DAY FOR Difficulty Breathing Acetaminophen 325MG 621234 650 MILLIGRAMS NEEDED ORAL 06/28/2020 09:36 Oral Tablet EVERY 4 HOURS Prescription Detail TAKE 650 MILLIGRAMS ORAL NEEDED EVERY 4 HOURS Amitriptyline HCl 50MG 952414 50 MILLIGRAMS BEDTIME ORAL 06/28/2020 09:36 Oral Tablet Prescription Detail TAKE 50 MILLIGRAMS ORAL BED[place] М[place]РИ[place] Atorvastatin Calcium 950645 20 MILLIGRAMS EVERY EVENING ORAL 06/28/2020 09:36 20MG Oral Tablet Prescription Detail TAKE 20 MILLIGRAMS ORAL EVER Y EVENING Budesonide 0.5MG/2ML 773579 1 EACH DAILY INHALATION 06/28/2020 09:36 Inhalation Suspension Prescription Detail 1 EACH INHALATION DAILY Cetirizine 10MG Oral 9378547 10 MILLIGRAMS BEDTIME ORAL 06/28/2020 09:36 Tablet Prescription Detail TAKE 10 MILLIGRAMS ORAL [place] М[place]РИ[place] Famotidine 20MG 404592 20 MILLIGRAMS NEEDED TWICE ORAL 06/28/2020 09:36 Oral Tablet DAILY Prescription Detail TAKE 20 MILLIGRAMS ORAL N EEDED TWICE DAILY Ipratropium 2373491 1 EACH NEEDED INHALATION 09:36 [place]-Albuterol Sulfate 0.5MG/3ML-3MG/3ML Inhalation Solution Prescription Detail 1 EACH INHALATION NEEDED Lidocaine-Prilocaine 146262 1 EACH NEEDED TOPICAL 1 2.5%-2.5% Topical APPLICATION 09 :36 application Cream Prescription Detail 1 EACH TOPICAL APPLICATION NEEDED Losartan Potassium 100MG 793264 100 MILLIGRAMS DAILY ORAL 06/28/2020 09:36 Oral Tablet Prescription Detail TAKE 100 MILLIGRAMS ORAL PARRIS LY Magnesium 500 MG Oral 993382 2 TABLET THREE TIMES A DAY ORAL 06/28/2020 09:36 Tablet Prescription Detail TAKE 2 TABLET ORAL THREE CELSO ES A DAY Morphine Sulfate 60MG 266092 60 MILLIGRAMS TWICE A DAY ORAL 06/28/2020 09:36 Oral Capsule, Extended Release Prescription Detail TAKE 60 MILLIGRAMS ORAL TWIC E A DAY Narcan 4MG/0.1ML Nasal [place] 5909927 1 EACH NEEDED NASAL 06/28/2020 09:36 Prescription Detail SPRAY 1 EACH NASAL NEEDED Omeprazole 40MG Oral 20021106 40 MILLIGRAMS DAILY ORAL 06/28/2020 09:36 Capsule, Delayed Release Prescription Detail TAKE 40 MILLIGRAMS ORAL BETTY Y Ondansetron 4MG Oral Tablet 177306 1 TABLET DAILY ORAL 06/28/2020 09:36 Prescription Detail TAKE 1 TABLET ORAL DAILY Polyethylene Glycol 10170990408 1 EACH NEEDED DAILY ORAL 06/28/2020 09:36 17GM/1Dose Oral Powder for Solution Prescription Detail TAKE 1 EACH ORAL NEEDED D AILY PreserVision Areds 2 NA 52911257927 2 CAPSULE DAILY ORAL 06/28/2020 09:36 Oral Capsule, Liquid Filled Prescription Detail TAKE 2 CAPSULE ORAL DAILY ProAir HFA 536451 2 PUFF NEEDED INHALATION 06/28/20 09:36 0.09MG/1Actuation THREE TIMES A Inhalation Suspension DAY Prescription Detail 2 PUFF INHALATION NEEDED THREE TIMES A DAY Pulmicort Flexhaler 923380 2 PUFF TWICE A DAY INHALATION 06/28/2020 09:36 90MCG/1Act Inhalation Powder Prescription Detail 2 PUFF INHALATION TWICE A D AY Spironolactone 25MG Oral 803634 25 MILLIGRAMS DAILY ORAL 06/28/2020 09:36 Tablet Prescription Detail TAKE 25 MILLIGRAMS ORAL BETTY Y Torsemide 20MG Oral Tablet 452012 1 TABLET DAILY ORAL 06/28/2020 09:36 Prescription Detail TAKE 1 TABLET ORAL DAILY Vitamin D3 253523 1373 INTERNATIONAL UNITS DAILY ORAL 1 09:36 1000IU Oral Tablet Prescription Detail TAKE 1000 INTERNATIONAL UNIT S ORAL DAILY Ondansetron 4MG Oral 705832 4 MILLIGRAMS BEFORE MEALS ORAL 06/28/2020 09:35 Tablet, Disintegrating Prescription Detail TAKE 4 MILLIGRAMS ORAL BEFOR E MEALS predniSONE 5MG Oral 776585 5 MILLIGRAMS DAILY WITH FOOD ORAL 06/28/2020 09:35 Tablet Prescription Detail TAKE 5 MILLIGRAMS ORAL DAILY WITH FOOD Refresh Ophthalmic 472152 1 EACH NEEDED OPTHALMIC 0 10/20/2019 12:16 Solution Prescription Detail 1 EACH OPTHALMIC NEEDED Avastin 25MG/1ML Intravenous 2701500 [id number] IVPB 10/20/2019 12:15 Solution Prescription Detail IVPB [id number] Mapap 325MG Oral 389189 650 MILLIGRAMS NEEDED EVERY ORAL 10/20/2019 12:14 Tablet 4 HOURS Prescription Detail TAKE 650 MILLIGRAMS ORAL NEEDED EVERY 4 HOURS amLODIPine Besylate 10MG 703400 10 MILLIGRAMS DAILY ORAL 08/06/2019 11:13 Oral Tablet Prescription Detail TAKE 10 MILLIGRAMS ORAL BETTY Y Aspirin 81MG Oral Tablet, 115498 81 MILLIGRAMS DAILY ORAL 08/16/2018 10:22 Enteric Coated Prescription Detail TAKE 81 MILLIGRAMS ORAL BETTY Y Cymbalta 60MG Oral Capsule, 719125 60 MILLIGRAMS DAILY ORAL 08/16/2018 10:22 Delayed Release Prescription Detail TAKE 60 MILLIGRAMS ORAL BETTY Y Medications Administered During Visit Unknown or Not Available. Encounters Encounter Diagnosis Diagnosis Code Start Date Encounter for antineoplastic immunotherapy [id number] 05/09/2021 Social History Smoking Status Code Start Date End Date Current every day smoker [id number] Patient Decision Aids Unknown or Not Available. Discharge Instructions You were admitted to [facility] on 05/09/2021 11:09 with a principal diagnosis of Encounter for antineoplasti c immunotherapy You had the following tests done: CBC W / DIFFERENTIAL COMPREHENSIVE METABOLIC PANEL (CMP) MAGNESIUM SERUM You were discharged from [facility] on 05/09/2021 11:09 Should you have any questions prior to [...]
--- OUTSIDE RECORDS SUMMARY | 2022-02-21 01:09 | XMS_ITS | CCD ---
:1945 Author Care Team Providers Name Role Phone RADHA VANN, CLEOPATRA Gómez Attending Physician Unavailable Vital Signs Unknown or Not Available. Allergies Allergy Code Allergy Type Reaction Status PENICILLINS (CLASS) 0 Drug allergy pt doesn't know Activ e TETRACYCLINE 84700 Drug allergy Active Procedures Unknown or Not Available. History of Immunizations Unknown or Not Available. Problems Problem Code Start Date Resolved Date Status CHRONIC AIRWAY OBSTRUCTION 93365991 A ctive HX OF BRONCHOGENIC MALIGNANCY 846323744 Active MULTIPLE SCLEROSIS 44227271 Active Hyperemesis 415039221 Active HTN 76489610 Active Acute respiratory failure with hypoxia 45788629 Active COPD with exacerbation 044954845 Activ e Cancer of lung 33814812 Active Acute CHF 03431090 Active Hypertension 73667532 Active Near syncope 247934234 Active Dehydration 69440733 Active High troponin I level 361905155 Active Acute exacerbation of COPD 377391762 08/07/2021 A ctive Results Unknown or Not Available. Active Medications Medication Code Dose Units Frequency Route Modification Start Date/Time predniSONE 10MG 360295 1 TABLET DAILY ORAL 08/07/20 21 Oral Tablet 15:21 Prescription Detail TAKE 5 TABS ORAL FOR 2 DAYS, THEN 4 TABS FOR 2 DAYS, THEN 3 TABS FOR 2 DAYS, THEN 2 TABS FOR 2 DAYS, THEN 1 TAB FOR 2 DAYS Ipratropium 8920693 1 NEEDED INHALATION 021 15:20 [place]-Albuterol Sulfate FOUR TIMES A 0.5MG/3ML-3MG/3ML DAY Inhalation Solution Prescription Detail 1 INHALATION NEEDED FOUR TIMES A DAY FOR Difficulty Breathing Acetaminophen 325MG 602865 650 MILLIGRAMS NEEDED ORAL 06/28/2020 09:36 Oral Tablet EVERY 4 HOURS Prescription Detail TAKE 650 MILLIGRAMS ORAL NEEDED EVERY 4 HOURS Amitriptyline HCl 50MG 167564 50 MILLIGRAMS BEDTIME ORAL 06/28/2020 09:36 Oral Tablet Prescription Detail TAKE 50 MILLIGRAMS ORAL [place] М[place]РИ[place] Atorvastatin Calcium 306927 20 MILLIGRAMS EVERY EVENING ORAL 06/28/2020 09:36 20MG Oral Tablet Prescription Detail TAKE 20 MILLIGRAMS ORAL EVER Y EVENING Budesonide 0.5MG/2ML 018644 1 EACH DAILY INHALATION 06/28/2020 09:36 Inhalation Suspension Prescription Detail 1 EACH INHALATION DAILY Cetirizine 10MG Oral 4390691 10 MILLIGRAMS BEDTIME ORAL 06/28/2020 09:36 Tablet Prescription Detail TAKE 10 MILLIGRAMS ORAL BEDT М[place]РИЯ Famotidine 20MG 767355 20 MILLIGRAMS NEEDED TWICE ORAL 06/28/2020 09:36 Oral Tablet DAILY Prescription Detail TAKE 20 MILLIGRAMS ORAL N EEDED TWICE DAILY Ipratropium 8410029 1 EACH NEEDED INHALATION 020 09:36 [place]-Albuterol Sulfate 0.5MG/3ML-3MG/3ML Inhalation Solution Prescription Detail 1 EACH INHALATION NEEDED Lidocaine-Prilocaine 612024 1 EACH NEEDED TOPICAL 1 2.5%-2.5% Topical APPLICATION 09 :36 application Cream Prescription Detail 1 EACH TOPICAL APPLICATION NEEDED Losartan Potassium 100MG 928565 100 MILLIGRAMS DAILY ORAL 06/28/2020 09:36 Oral Tablet Prescription Detail TAKE 100 MILLIGRAMS ORAL PARRIS LY Magnesium 500 MG Oral 341702 2 TABLET THREE TIMES A DAY ORAL 06/28/2020 09:36 Tablet Prescription Detail TAKE 2 TABLET ORAL THREE CELSO ES A DAY Morphine Sulfate 60MG 240383 60 MILLIGRAMS TWICE A DAY ORAL 06/28/2020 09:36 Oral Capsule, Extended Release Prescription Detail TAKE 60 MILLIGRAMS ORAL TWIC E A DAY Narcan 4MG/0.1ML Nasal [place] 9383845 1 EACH NEEDED NASAL 06/28/2020 09:36 Prescription Detail SPRAY 1 EACH NASAL NEEDED Omeprazole 40MG Oral 20021106 40 MILLIGRAMS DAILY ORAL 06/28/2020 09:36 Capsule, Delayed Release Prescription Detail TAKE 40 MILLIGRAMS ORAL BETTY Y Ondansetron 4MG Oral Tablet 377664 1 TABLET DAILY ORAL 06/28/2020 09:36 Prescription Detail TAKE 1 TABLET ORAL DAILY Polyethylene Glycol 03030093755 1 EACH NEEDED DAILY ORAL 06/28/2020 09:36 17GM/1Dose Oral Powder for Solution Prescription Detail TAKE 1 EACH ORAL NEEDED D AILY PreserVision Areds 2 NA 23694861769 2 CAPSULE DAILY ORAL 06/28/2020 09:36 Oral Capsule, Liquid Filled Prescription Detail TAKE 2 CAPSULE ORAL DAILY ProAir HFA 678545 2 PUFF NEEDED INHALATION 06/28/20 09:36 0.09MG/1Actuation THREE TIMES A Inhalation Suspension DAY Prescription Detail 2 PUFF INHALATION NEEDED THREE TIMES A DAY Pulmicort Flexhaler 254997 2 PUFF TWICE A DAY INHALATION 06/28/2020 09:36 90MCG/1Act Inhalation Powder Prescription Detail 2 PUFF INHALATION TWICE A D AY Spironolactone 25MG Oral 251655 25 MILLIGRAMS DAILY ORAL 06/28/2020 09:36 Tablet Prescription Detail TAKE 25 MILLIGRAMS ORAL BETTY Y Torsemide 20MG Oral Tablet 824482 1 TABLET DAILY ORAL 06/28/2020 09:36 Prescription Detail TAKE 1 TABLET ORAL DAILY Vitamin D3 105549 7943 INTERNATIONAL UNITS DAILY ORAL 1 09:36 1000IU Oral Tablet Prescription Detail TAKE 1000 INTERNATIONAL UNIT S ORAL DAILY Ondansetron 4MG Oral 118234 4 MILLIGRAMS BEFORE MEALS ORAL 06/28/2020 09:35 Tablet, Disintegrating Prescription Detail TAKE 4 MILLIGRAMS ORAL BEFOR E MEALS predniSONE 5MG Oral 985843 5 MILLIGRAMS DAILY WITH FOOD ORAL 06/28/2020 09:35 Tablet Prescription Detail TAKE 5 MILLIGRAMS ORAL DAILY WITH FOOD Refresh Ophthalmic 766012 1 EACH NEEDED OPTHALMIC 0 10/20/2019 12:16 Solution Prescription Detail 1 EACH OPTHALMIC NEEDED Avastin 25MG/1ML Intravenous 4627766 [id number] IVPB 10/20/2019 12:15 Solution Prescription Detail IVPB [id number] Mapap 325MG Oral 284575 650 MILLIGRAMS NEEDED EVERY ORAL 10/20/2019 12:14 Tablet 4 HOURS Prescription Detail TAKE 650 MILLIGRAMS ORAL NEEDED EVERY 4 HOURS amLODIPine Besylate 10MG 906315 10 MILLIGRAMS DAILY ORAL 08/06/2019 11:13 Oral Tablet Prescription Detail TAKE 10 MILLIGRAMS ORAL BETTY Y Aspirin 81MG Oral Tablet, 398779 81 MILLIGRAMS DAILY ORAL 08/16/2018 10:22 Enteric Coated Prescription Detail TAKE 81 MILLIGRAMS ORAL BETTY Y Cymbalta 60MG Oral Capsule, 325627 60 MILLIGRAMS DAILY ORAL 08/16/2018 10:22 Delayed Release Prescription Detail TAKE 60 MILLIGRAMS ORAL BETTY Y Medications Administered During Visit Unknown or Not Available. Encounters Unknown or Not Available. Social History Smoking Status Code Start Date End Date Current every day smoker [id number] Patient Decision Aids Unknown or Not Available. Discharge Instructions You were admitted to [facility] on 06/10/2021 21:54 You were discharged from [facility] on 06/10/2021 21:54 Should you have any questions prior to [...]
--- OUTSIDE RECORDS SUMMARY | 2022-02-21 01:09 | XMS_ITS | CCD ---
:1945 Author Care Team Providers Name Role Phone RADHA VANN, CLEOPATRA Gómez Attending Physician Unavailable Vital Signs Unknown or Not Available. Allergies Allergy Code Allergy Type Reaction Status PENICILLINS (CLASS) 0 Drug allergy pt doesn't know Activ e TETRACYCLINE 89051 Drug allergy Active Procedures Unknown or Not Available. History of Immunizations Unknown or Not Available. Problems Problem Code Start Date Resolved Date Status CHRONIC AIRWAY OBSTRUCTION 68363788 A ctive HX OF BRONCHOGENIC MALIGNANCY 708910942 Active MULTIPLE SCLEROSIS 15788915 Active Hyperemesis 167747270 Active HTN 53950713 Active Acute respiratory failure with hypoxia 55390166 Active COPD with exacerbation 351812030 Activ e Cancer of lung 20930958 Active Acute CHF 49650403 Active Hypertension 84897856 Active Near syncope 737461510 Active Dehydration 91817223 Active High troponin I level 465137167 Active Acute exacerbation of COPD 593387335 08/07/2021 A ctive Results Unknown or Not Available. Active Medications Medication Code Dose Units Frequency Route Modification Start Date/Time predniSONE 10MG 793147 1 TABLET DAILY ORAL 08/07/20 21 Oral Tablet 15:21 Prescription Detail TAKE 5 TABS ORAL FOR 2 DAYS, THEN 4 TABS FOR 2 DAYS, THEN 3 TABS FOR 2 DAYS, THEN 2 TABS FOR 2 DAYS, THEN 1 TAB FOR 2 DAYS Ipratropium 1728077 1 NEEDED INHALATION 021 15:20 [place]-Albuterol Sulfate FOUR TIMES A 0.5MG/3ML-3MG/3ML DAY Inhalation Solution Prescription Detail 1 INHALATION NEEDED FOUR TIMES A DAY FOR Difficulty Breathing Acetaminophen 325MG 988525 650 MILLIGRAMS NEEDED ORAL 06/28/2020 09:36 Oral Tablet EVERY 4 HOURS Prescription Detail TAKE 650 MILLIGRAMS ORAL NEEDED EVERY 4 HOURS Amitriptyline HCl 50MG 305529 50 MILLIGRAMS BEDTIME ORAL 06/28/2020 09:36 Oral Tablet Prescription Detail TAKE 50 MILLIGRAMS ORAL BEDT МАРИЯ Atorvastatin Calcium 026754 20 MILLIGRAMS EVERY EVENING ORAL 06/28/2020 09:36 20MG Oral Tablet Prescription Detail TAKE 20 MILLIGRAMS ORAL EVER Y EVENING Budesonide 0.5MG/2ML 323240 1 EACH DAILY INHALATION 06/28/2020 09:36 Inhalation Suspension Prescription Detail 1 EACH INHALATION DAILY Cetirizine 10MG Oral 2981866 10 MILLIGRAMS BEDTIME ORAL 06/28/2020 09:36 Tablet Prescription Detail TAKE 10 MILLIGRAMS ORAL BEDT МАРИЯ Famotidine 20MG 503291 20 MILLIGRAMS NEEDED TWICE ORAL 06/28/2020 09:36 Oral Tablet DAILY Prescription Detail TAKE 20 MILLIGRAMS ORAL N EEDED TWICE DAILY Ipratropium 7455374 1 EACH NEEDED INHALATION 020 09:36 [place]-Albuterol Sulfate 0.5MG/3ML-3MG/3ML Inhalation Solution Prescription Detail 1 EACH INHALATION NEEDED Lidocaine-Prilocaine 119003 1 EACH NEEDED TOPICAL 1 2.5%-2.5% Topical APPLICATION 09 :36 application Cream Prescription Detail 1 EACH TOPICAL APPLICATION NEEDED Losartan Potassium 100MG 884602 100 MILLIGRAMS DAILY ORAL 06/28/2020 09:36 Oral Tablet Prescription Detail TAKE 100 MILLIGRAMS ORAL PARRIS LY Magnesium 500 MG Oral 840117 2 TABLET THREE TIMES A DAY ORAL 06/28/2020 09:36 Tablet Prescription Detail TAKE 2 TABLET ORAL THREE CELSO ES A DAY Morphine Sulfate 60MG 713740 60 MILLIGRAMS TWICE A DAY ORAL 06/28/2020 09:36 Oral Capsule, Extended Release Prescription Detail TAKE 60 MILLIGRAMS ORAL TWIC E A DAY Narcan 4MG/0.1ML Nasal [place] 8477829 1 EACH NEEDED NASAL 06/28/2020 09:36 Prescription Detail SPRAY 1 EACH NASAL NEEDED Omeprazole 40MG Oral 20021106 40 MILLIGRAMS DAILY ORAL 06/28/2020 09:36 Capsule, Delayed Release Prescription Detail TAKE 40 MILLIGRAMS ORAL BETTY Y Ondansetron 4MG Oral Tablet 915818 1 TABLET DAILY ORAL 06/28/2020 09:36 Prescription Detail TAKE 1 TABLET ORAL DAILY Polyethylene Glycol 39692881549 1 EACH NEEDED DAILY ORAL 06/28/2020 09:36 17GM/1Dose Oral Powder for Solution Prescription Detail TAKE 1 EACH ORAL NEEDED D AILY PreserVision Areds 2 NA 15228885216 2 CAPSULE DAILY ORAL 06/28/2020 09:36 Oral Capsule, Liquid Filled Prescription Detail TAKE 2 CAPSULE ORAL DAILY ProAir HFA 935273 2 PUFF NEEDED INHALATION 06/28/20 09:36 0.09MG/1Actuation THREE TIMES A Inhalation Suspension DAY Prescription Detail 2 PUFF INHALATION NEEDED THREE TIMES A DAY Pulmicort Flexhaler 905203 2 PUFF TWICE A DAY INHALATION 06/28/2020 09:36 90MCG/1Act Inhalation Powder Prescription Detail 2 PUFF INHALATION TWICE A D AY Spironolactone 25MG Oral 432610 25 MILLIGRAMS DAILY ORAL 06/28/2020 09:36 Tablet Prescription Detail TAKE 25 MILLIGRAMS ORAL BETTY Y Torsemide 20MG Oral Tablet 076938 1 TABLET DAILY ORAL 06/28/2020 09:36 Prescription Detail TAKE 1 TABLET ORAL DAILY Vitamin D3 287591 0837 INTERNATIONAL UNITS DAILY ORAL 1 09:36 1000IU Oral Tablet Prescription Detail TAKE 1000 INTERNATIONAL UNIT S ORAL DAILY Ondansetron 4MG Oral 872755 4 MILLIGRAMS BEFORE MEALS ORAL 06/28/2020 09:35 Tablet, Disintegrating Prescription Detail TAKE 4 MILLIGRAMS ORAL BEFOR E MEALS predniSONE 5MG Oral 914298 5 MILLIGRAMS DAILY WITH FOOD ORAL 06/28/2020 09:35 Tablet Prescription Detail TAKE 5 MILLIGRAMS ORAL DAILY WITH FOOD Refresh Ophthalmic 707059 1 EACH NEEDED OPTHALMIC 0 10/20/2019 12:16 Solution Prescription Detail 1 EACH OPTHALMIC NEEDED Avastin 25MG/1ML Intravenous 3167234 [id number] IVPB 10/20/2019 12:15 Solution Prescription Detail IVPB [id number] Mapap 325MG Oral 684566 650 MILLIGRAMS NEEDED EVERY ORAL 10/20/2019 12:14 Tablet 4 HOURS Prescription Detail TAKE 650 MILLIGRAMS ORAL NEEDED EVERY 4 HOURS amLODIPine Besylate 10MG 884282 10 MILLIGRAMS DAILY ORAL 08/06/2019 11:13 Oral Tablet Prescription Detail TAKE 10 MILLIGRAMS ORAL BETTY Y Aspirin 81MG Oral Tablet, 369715 81 MILLIGRAMS DAILY ORAL 08/16/2018 10:22 Enteric Coated Prescription Detail TAKE 81 MILLIGRAMS ORAL BETTY Y Cymbalta 60MG Oral Capsule, 086830 60 MILLIGRAMS DAILY ORAL 08/16/2018 10:22 Delayed Release Prescription Detail TAKE 60 MILLIGRAMS ORAL BETTY Y Medications Administered During Visit Unknown or Not Available. Encounters Encounter Diagnosis Diagnosis Code Start Date Malignant neoplasm of unspecified part of unspecified [id number] 06/10/2021 bronchus or lung Social History Smoking Status Code Start Date End Date Current every day smoker [phone] Patient Decision Aids Unknown or Not Available. Discharge Instructions You were admitted to on 06/10/2021 09:22 with a principal diagnosis of Malignant neoplasm of unspe cified part of unspecified bronchus or lung You were discharged from on 06/10/2021 09:22 Should you have any questions prior to [...]
--- OUTSIDE RECORDS SUMMARY | 2022-02-21 01:09 | XMS_ITS | CCD ---
:1945 Author Care Team Providers Name Role Phone RADHA VANN, CLEOPATRA Gómez Attending Physician Unavailable Vital Signs Unknown or Not Available. Allergies Allergy Code Allergy Type Reaction Status PENICILLINS (CLASS) 0 Drug allergy pt doesn't know Activ e TETRACYCLINE 08868 Drug allergy Active Procedures Unknown or Not Available. History of Immunizations Unknown or Not Available. Problems Problem Code Start Date Resolved Date Status CHRONIC AIRWAY OBSTRUCTION 70339078 A ctive HX OF BRONCHOGENIC MALIGNANCY 170305675 Active MULTIPLE SCLEROSIS 16342966 Active Hyperemesis 388915326 Active HTN 47358329 Active Acute respiratory failure with hypoxia 83041578 Active COPD with exacerbation 399490324 Activ e Cancer of lung 16946827 Active Acute CHF 81073381 Active Hypertension 36360595 Active Near syncope 419180056 Active Dehydration 22116860 Active High troponin I level 120721419 Active Acute exacerbation of COPD 997325519 08/07/2021 A ctive Results COMPREHENSIVE METABOLIC PANEL (CMP) - Co llect Date/Time: 06/05/2021 12:45 Test Name Code Test Result Test Units Test Ref Range GLUCOSE 2345-7 130 mg/dL L=70 H=116 BUN 3094-0 42 mg/dL L=6 H=25 CREATININE 2160-0 0.96 mg/dL L=0.51 H=0.95 SODIUM SERUM 2951-2 139 mmol/L L=136 H=145 POTASSIUM SERUM 2823-3 4.9 mmol/L L=3.4 H=5.2 CHLORIDE SERUM 2075-0 101 mmol/L L=96 H=110 CARBON DIOXIDE (CO2) 2028-9 33 mmol/L L=22 H= 34 ANION GAP 70569-2 5.2 mmol/L CALCIUM SERUM 08802-8 9.4 mg/dL L=8.2 H=10.2 BILIRUBIN TOTAL 1975-2 0.3 mg/dL L=0.0 H=1.3 ALK. PHOS. 6768-6 115 U/L L=46 H=116 SGOT (AST) 1920-8 8 U/L L=15 H=37 SGPT (ALT) 1742-6 30 U/L L=12 H=78 TOTAL PROTEIN 2885-2 6.3 gm/dL L=6.0 H=8.0 ALBUMIN 1751-7 3.5 gm/dL L=3.4 H=5.0 AGE 75 years eGFR (non-Afr.Amer.) 70165-5 57 mL/min eGFR (Afr-[place]in[place]e) 49698-9 69 mL/min MAGNESIUM SERUM - Collect Date/Time: 04/2021 12:45 Test Name Code Test Result Test Units Test Ref Range MAGNESIUM 81662-9 2.0 mg/dL L=1.8 H=2.4 TSH THYROID STIMULATING HORMONE - [facility] t Date/Time: 06/05/2021 12:45 Test Name Code Test Result Test Units Test Ref Range TSH 3014-8 2.370 uIU/mL L=0.360 H=3.740 CBC W/ DIFFERENTIAL - Collect Date/Time: 06/05/2021 12:45 Test Name Code Test Result Test Units Test Ref Range WBC 6690-2 8.64 th/cmm L=5.00 H=10.00 NEUT % 82.3 % L=40.0 H=80.0 LYMPH % 8.9 % L=10.0 H=50.0 MONO % 76565-9 6.9 % L=2.0 H=12.0 EOS % 0.9 % L=0.0 H=8.0 BASO % 0.7 % L=0.0 H=3.0 IG % 2514-8 0.3 % L=0.0 H=1.1 NRBC % 23038-7 0.0 % L=0.0 H=0.0 NEUT abs count 751-8 7.1 th/cmm L=1.6 H=8.4 LYMPH abs count 731-0 0.8 th/cmm L=1.5 H=4.0 MONO abs count 742-7 0.6 th/cmm L=0.2 H=1.0 EOS abs count 711-2 0.1 th/cmm L=0.0 H=0.5 BASO abs count 704-7 0.1 th/cmm L=0.0 H=0.2 IG abs count 61042-5 0.0 th/cmm L=0.0 H=0.1 NRBC abs count 22435-9 0.0 mil/cmm L=0.0 H=0.0 RBC 789-8 3.56 mil/cmm L=3.90 H=5.40 HEMOGLOBIN 718-7 10.0 gm/dL L=12.0 H=16.0 HEMATOCRIT 4544-3 33 % L=37 H=47 MCV 787-2 92 fL L=82 H=92 MCH 785-6 28.1 pg L=27.0 H=31.0 MCHC 786-4 30.5 % L=32.0 H=36.0 RDW-SD 788-0 54.1 fL L=39.0 H=49.0 PLATELET COUNT 777-3 229 th/cmm L=150 H=450 Active Medications Medication Code Dose Units Frequency Route Modification Start Date/Time predniSONE 10MG 622183 1 TABLET DAILY ORAL 08/07/20 21 Oral Tablet 15:21 Prescription Detail TAKE 5 TABS ORAL FOR 2 DAYS, THEN 4 TABS FOR 2 DAYS, THEN 3 TABS FOR 2 DAYS, THEN 2 TABS FOR 2 DAYS, THEN 1 TAB FOR 2 DAYS Ipratropium 6242649 1 NEEDED INHALATION 021 15:20 [place]-Albuterol Sulfate FOUR TIMES A 0.5MG/3ML-3MG/3ML DAY Inhalation Solution Prescription Detail 1 INHALATION NEEDED FOUR TIMES A DAY FOR Difficulty Breathing Acetaminophen 325MG 150513 650 MILLIGRAMS NEEDED ORAL 06/28/2020 09:36 Oral Tablet EVERY 4 HOURS Prescription Detail TAKE 650 MILLIGRAMS ORAL NEEDED EVERY 4 HOURS Amitriptyline HCl 50MG 218307 50 MILLIGRAMS BEDTIME ORAL 06/28/2020 09:36 Oral Tablet Prescription Detail TAKE 50 MILLIGRAMS ORAL [place] Atorvastatin Calcium 365668 20 MILLIGRAMS EVERY EVENING ORAL 06/28/2020 09:36 20MG Oral Tablet Prescription Detail TAKE 20 MILLIGRAMS ORAL EVER Y EVENING Budesonide 0.5MG/2ML 169574 1 EACH DAILY INHALATION 06/28/2020 09:36 Inhalation Suspension Prescription Detail 1 EACH INHALATION DAILY Cetirizine 10MG Oral 2629404 10 MILLIGRAMS BEDTIME ORAL 06/28/2020 09:36 Tablet Prescription Detail TAKE 10 MILLIGRAMS ORAL [place] Famotidine 20MG 332782 20 MILLIGRAMS NEEDED TWICE ORAL 06/28/2020 09:36 Oral Tablet DAILY Prescription Detail TAKE 20 MILLIGRAMS ORAL N EEDED TWICE DAILY Ipratropium 4796369 1 EACH NEEDED INHALATION 020 09:36 [place]-Albuterol Sulfate 0.5MG/3ML-3MG/3ML Inhalation Solution Prescription Detail 1 EACH INHALATION NEEDED Lidocaine-Prilocaine 411108 1 EACH NEEDED TOPICAL 1 2.5%-2.5% Topical APPLICATION 09 :36 application Cream Prescription Detail 1 EACH TOPICAL APPLICATION NEEDED Losartan Potassium 100MG 967766 100 MILLIGRAMS DAILY ORAL 06/28/2020 09:36 Oral Tablet Prescription Detail TAKE 100 MILLIGRAMS ORAL PARRIS LY Magnesium 500 MG Oral 719835 2 TABLET THREE TIMES A DAY ORAL 06/28/2020 09:36 Tablet Prescription Detail TAKE 2 TABLET ORAL THREE CELSO ES A DAY Morphine Sulfate 60MG 257621 60 MILLIGRAMS TWICE A DAY ORAL 06/28/2020 09:36 Oral Capsule, Extended Release Prescription Detail TAKE 60 MILLIGRAMS ORAL TWIC E A DAY Narcan 4MG/0.1ML Nasal [place] 3116391 1 EACH NEEDED NASAL 06/28/2020 09:36 Prescription Detail SPRAY 1 EACH NASAL NEEDED Omeprazole 40MG Oral 20021106 40 MILLIGRAMS DAILY ORAL 06/28/2020 09:36 Capsule, Delayed Release Prescription Detail TAKE 40 MILLIGRAMS ORAL BETTY Y Ondansetron 4MG Oral Tablet 931695 1 TABLET DAILY ORAL 06/28/2020 09:36 Prescription Detail TAKE 1 TABLET ORAL DAILY Polyethylene Glycol 40014268180 1 EACH NEEDED DAILY ORAL 06/28/2020 09:36 17GM/1Dose Oral Powder for Solution Prescription Detail TAKE 1 EACH ORAL NEEDED D AILY PreserVision Areds 2 NA 67676114661 2 CAPSULE DAILY ORAL 06/28/2020 09:36 Oral Capsule, Liquid Filled Prescription Detail TAKE 2 CAPSULE ORAL DAILY ProAir HFA 117447 2 PUFF NEEDED INHALATION 06/28/20 09:36 0.09MG/1Actuation THREE TIMES A Inhalation Suspension DAY Prescription Detail 2 PUFF INHALATION NEEDED THREE TIMES A DAY Pulmicort Flexhaler 565520 2 PUFF TWICE A DAY INHALATION 06/28/2020 09:36 90MCG/1Act Inhalation Powder Prescription Detail 2 PUFF INHALATION TWICE A D AY Spironolactone 25MG Oral 905795 25 MILLIGRAMS DAILY ORAL 06/28/2020 09:36 Tablet Prescription Detail TAKE 25 MILLIGRAMS ORAL BETTY Y Torsemide 20MG Oral Tablet 351943 1 TABLET DAILY ORAL 06/28/2020 09:36 Prescription Detail TAKE 1 TABLET ORAL DAILY Vitamin D3 159847 0890 INTERNATIONAL UNITS DAILY ORAL 1 09:36 1000IU Oral Tablet Prescription Detail TAKE 1000 INTERNATIONAL UNIT S ORAL DAILY Ondansetron 4MG Oral 875106 4 MILLIGRAMS BEFORE MEALS ORAL 06/28/2020 09:35 Tablet, Disintegrating Prescription Detail TAKE 4 MILLIGRAMS ORAL BEFOR E MEALS predniSONE 5MG Oral 035534 5 MILLIGRAMS DAILY WITH FOOD ORAL 06/28/2020 09:35 Tablet Prescription Detail TAKE 5 MILLIGRAMS ORAL DAILY WITH FOOD Refresh Ophthalmic 935832 1 EACH NEEDED OPTHALMIC 0 10/20/2019 12:16 Solution Prescription Detail 1 EACH OPTHALMIC NEEDED Avastin 25MG/1ML Intravenous 5467669 [id number] IVPB 10/20/2019 12:15 Solution Prescription Detail IVPB [id number] Mapap 325MG Oral 218569 650 MILLIGRAMS NEEDED EVERY ORAL 10/20/2019 12:14 Tablet 4 HOURS Prescription Detail TAKE 650 MILLIGRAMS ORAL NEEDED EVERY 4 HOURS amLODIPine Besylate 10MG 707568 10 MILLIGRAMS DAILY ORAL 08/06/2019 11:13 Oral Tablet Prescription Detail TAKE 10 MILLIGRAMS ORAL BETTY Y Aspirin 81MG Oral Tablet, 253379 81 MILLIGRAMS DAILY ORAL 08/16/2018 10:22 Enteric Coated Prescription Detail TAKE 81 MILLIGRAMS ORAL BETTY Y Cymbalta 60MG Oral Capsule, 440807 60 MILLIGRAMS DAILY ORAL 08/16/2018 10:22 Delayed Release Prescription Detail TAKE 60 MILLIGRAMS ORAL BETTY Y Medications Administered During Visit Unknown or Not Available. Encounters Encounter Diagnosis Diagnosis Code Start Date Encounter for antineoplastic immunotherapy [id number] 06/05/2021 Social History Smoking Status Code Start Date End Date Current every day smoker [id number] Patient Decision Aids Unknown or Not Available. Discharge Instructions You were admitted to [facility] on 06/05/2021 12:25 with a principal diagnosis of Encounter for antineoplasti c immunotherapy You had the following tests done: CBC W / DIFFERENTIAL COMPREHENSIVE METABOLIC PANEL (CMP) MAGNESIUM SERUM TSH THYROID STIMUL ATING HORMONE You were discharged from [facility] 01 on 06/05/2021 12:25 Should you have any questions prior to [...]
--- OUTSIDE RECORDS SUMMARY | 2022-02-21 01:09 | XMS_ITS | CCD ---
:1945 Author Care Team Providers Name Role Phone RADHA VANN, CLEOPATRA Gómez Attending Physician Unavailable Vital Signs Unknown or Not Available. Allergies Allergy Code Allergy Type Reaction Status PENICILLINS (CLASS) 0 Drug allergy pt doesn't know Activ e TETRACYCLINE 94606 Drug allergy Active Procedures Unknown or Not Available. History of Immunizations Unknown or Not Available. Problems Problem Code Start Date Resolved Date Status CHRONIC AIRWAY OBSTRUCTION 62618010 A ctive HX OF BRONCHOGENIC MALIGNANCY 735637552 Active MULTIPLE SCLEROSIS 21376094 Active Hyperemesis 085705754 Active HTN 46535409 Active Acute respiratory failure with hypoxia 88039427 Active COPD with exacerbation 718055981 Activ e Cancer of lung 08191114 Active Acute CHF 10110519 Active Hypertension 16029302 Active Near syncope 906093407 Active Dehydration 67183444 Active High troponin I level 978449530 Active Acute exacerbation of COPD 977526874 08/07/2021 A ctive Results Unknown or Not Available. Active Medications Medication Code Dose Units Frequency Route Modification Start Date/Time predniSONE 10MG 872605 1 TABLET DAILY ORAL 08/07/20 21 Oral Tablet 15:21 Prescription Detail TAKE 5 TABS ORAL FOR 2 DAYS, THEN 4 TABS FOR 2 DAYS, THEN 3 TABS FOR 2 DAYS, THEN 2 TABS FOR 2 DAYS, THEN 1 TAB FOR 2 DAYS Ipratropium 6560786 1 NEEDED INHALATION 021 15:20 [place]-Albuterol Sulfate FOUR TIMES A 0.5MG/3ML-3MG/3ML DAY Inhalation Solution Prescription Detail 1 INHALATION NEEDED FOUR TIMES A DAY FOR Difficulty Breathing Acetaminophen 325MG 515566 650 MILLIGRAMS NEEDED ORAL 06/28/2020 09:36 Oral Tablet EVERY 4 HOURS Prescription Detail TAKE 650 MILLIGRAMS ORAL NEEDED EVERY 4 HOURS Amitriptyline HCl 50MG 140368 50 MILLIGRAMS BEDTIME ORAL 06/28/2020 09:36 Oral Tablet Prescription Detail TAKE 50 MILLIGRAMS ORAL [place] Atorvastatin Calcium 064075 20 MILLIGRAMS EVERY EVENING ORAL 06/28/2020 09:36 20MG Oral Tablet Prescription Detail TAKE 20 MILLIGRAMS ORAL EVER Y EVENING Budesonide 0.5MG/2ML 131477 1 EACH DAILY INHALATION 06/28/2020 09:36 Inhalation Suspension Prescription Detail 1 EACH INHALATION DAILY Cetirizine 10MG Oral 0838964 10 MILLIGRAMS BEDTIME ORAL 06/28/2020 09:36 Tablet Prescription Detail TAKE 10 MILLIGRAMS ORAL [place] М[place] Famotidine 20MG 172781 20 MILLIGRAMS NEEDED TWICE ORAL 06/28/2020 09:36 Oral Tablet DAILY Prescription Detail TAKE 20 MILLIGRAMS ORAL N EEDED TWICE DAILY Ipratropium 6245126 1 EACH NEEDED INHALATION 020 09:36 [place]-Albuterol Sulfate 0.5MG/3ML-3MG/3ML Inhalation Solution Prescription Detail 1 EACH INHALATION NEEDED Lidocaine-Prilocaine 744309 1 EACH NEEDED TOPICAL 1 2.5%-2.5% Topical APPLICATION 09 :36 application Cream Prescription Detail 1 EACH TOPICAL APPLICATION NEEDED Losartan Potassium 100MG 578159 100 MILLIGRAMS DAILY ORAL 06/28/2020 09:36 Oral Tablet Prescription Detail TAKE 100 MILLIGRAMS ORAL PARRIS LY Magnesium 500 MG Oral 309881 2 TABLET THREE TIMES A DAY ORAL 06/28/2020 09:36 Tablet Prescription Detail TAKE 2 TABLET ORAL THREE CELSO ES A DAY Morphine Sulfate 60MG 165560 60 MILLIGRAMS TWICE A DAY ORAL 06/28/2020 09:36 Oral Capsule, Extended Release Prescription Detail TAKE 60 MILLIGRAMS ORAL TWIC E A DAY Narcan 4MG/0.1ML Nasal [place] 6306657 1 EACH NEEDED NASAL 06/28/2020 09:36 Prescription Detail SPRAY 1 EACH NASAL NEEDED Omeprazole 40MG Oral 20021106 40 MILLIGRAMS DAILY ORAL 06/28/2020 09:36 Capsule, Delayed Release Prescription Detail TAKE 40 MILLIGRAMS ORAL BETTY Y Ondansetron 4MG Oral Tablet 285279 1 TABLET DAILY ORAL 06/28/2020 09:36 Prescription Detail TAKE 1 TABLET ORAL DAILY Polyethylene Glycol 26981070328 1 EACH NEEDED DAILY ORAL 06/28/2020 09:36 17GM/1Dose Oral Powder for Solution Prescription Detail TAKE 1 EACH ORAL NEEDED D AILY PreserVision Areds 2 NA 02794235599 2 CAPSULE DAILY ORAL 06/28/2020 09:36 Oral Capsule, Liquid Filled Prescription Detail TAKE 2 CAPSULE ORAL DAILY ProAir HFA 502851 2 PUFF NEEDED INHALATION 06/28/20 09:36 0.09MG/1Actuation THREE TIMES A Inhalation Suspension DAY Prescription Detail 2 PUFF INHALATION NEEDED THREE TIMES A DAY Pulmicort Flexhaler 439994 2 PUFF TWICE A DAY INHALATION 06/28/2020 09:36 90MCG/1Act Inhalation Powder Prescription Detail 2 PUFF INHALATION TWICE A D AY Spironolactone 25MG Oral 559805 25 MILLIGRAMS DAILY ORAL 06/28/2020 09:36 Tablet Prescription Detail TAKE 25 MILLIGRAMS ORAL BETTY Y Torsemide 20MG Oral Tablet 979293 1 TABLET DAILY ORAL 06/28/2020 09:36 Prescription Detail TAKE 1 TABLET ORAL DAILY Vitamin D3 145178 4598 INTERNATIONAL UNITS DAILY ORAL 1 09:36 1000IU Oral Tablet Prescription Detail TAKE 1000 INTERNATIONAL UNIT S ORAL DAILY Ondansetron 4MG Oral 921923 4 MILLIGRAMS BEFORE MEALS ORAL 06/28/2020 09:35 Tablet, Disintegrating Prescription Detail TAKE 4 MILLIGRAMS ORAL BEFOR E MEALS predniSONE 5MG Oral 297397 5 MILLIGRAMS DAILY WITH FOOD ORAL 06/28/2020 09:35 Tablet Prescription Detail TAKE 5 MILLIGRAMS ORAL DAILY WITH FOOD Refresh Ophthalmic 109174 1 EACH NEEDED OPTHALMIC 0 10/20/2019 12:16 Solution Prescription Detail 1 EACH OPTHALMIC NEEDED Avastin 25MG/1ML Intravenous 8715246 X6ALKER IVPB 10/20/2019 12:15 Solution Prescription Detail IVPB [id number] Mapap 325MG Oral 179215 650 MILLIGRAMS NEEDED EVERY ORAL 10/20/2019 12:14 Tablet 4 HOURS Prescription Detail TAKE 650 MILLIGRAMS ORAL NEEDED EVERY 4 HOURS amLODIPine Besylate 10MG 512427 10 MILLIGRAMS DAILY ORAL 08/06/2019 11:13 Oral Tablet Prescription Detail TAKE 10 MILLIGRAMS ORAL BETTY Y Aspirin 81MG Oral Tablet, 261130 81 MILLIGRAMS DAILY ORAL 08/16/2018 10:22 Enteric Coated Prescription Detail TAKE 81 MILLIGRAMS ORAL BETTY Y Cymbalta 60MG Oral Capsule, 418916 60 MILLIGRAMS DAILY ORAL 08/16/2018 10:22 Delayed Release Prescription Detail TAKE 60 MILLIGRAMS ORAL BETTY Y Medications Administered During Visit Unknown or Not Available. Encounters Encounter Diagnosis Diagnosis Code Start Date Malignant neoplasm of upper lobe, left bronchus or lung C341 2 06/05/2021 Social History Smoking Status Code Start Date End Date Current every day smoker [id number] Patient Decision Aids Unknown or Not Available. Discharge Instructions You were admitted to [facility] on 06/05/2021 11:20 with a principal diagnosis of Malignant neoplasm of upper lobe, left bronchus or lung You were discharged from [facility] on 06/05/2021 11:20 Should you have any questions prior to d ischarge, please contact a member of your healthcare team. If you have left the [facility] and have any questions, please contact your primary care physician. Chief Complaint and Reason For Visit Unknown or Not Available. Function Status Unknown or Not Available. Plan of Care Unknown or Not Available. Referral/Transition of Care Unknown or Not Available.
--- OUTSIDE RECORDS SUMMARY | 2022-02-21 01:10 | XMS_ITS | CCD ---
:1945 Author Care Team Providers Name Role Phone RADHA VANN, CLEOPATRA Gómez Attending Physician Unavailable Vital Signs Unknown or Not Available. Allergies Allergy Code Allergy Type Reaction Status PENICILLINS (CLASS) 0 Drug allergy pt doesn't know Activ e TETRACYCLINE 81324 Drug allergy Active Procedures Unknown or Not Available. History of Immunizations Unknown or Not Available. Problems Problem Code Start Date Resolved Date Status CHRONIC AIRWAY OBSTRUCTION 49396585 A ctive HX OF BRONCHOGENIC MALIGNANCY 038429111 Active MULTIPLE SCLEROSIS 77920889 Active Hyperemesis 009068010 Active HTN 29451178 Active Acute respiratory failure with hypoxia 85750358 Active COPD with exacerbation 407854170 Activ e Cancer of lung 37730531 Active Acute CHF 97913248 Active Hypertension 87790226 Active Near syncope 007978755 Active Dehydration 83308902 Active High troponin I level 194079526 Active Acute exacerbation of COPD 983081159 08/07/2021 A ctive Results COMPREHENSIVE METABOLIC PANEL (CMP) - Co llect Date/Time: 06/26/2021 09:25 Test Name Code Test Result Test Units Test Ref Range GLUCOSE 2345-7 111 mg/dL L=70 H=116 BUN 3094-0 38 mg/dL L=6 H=25 CREATININE 2160-0 0.91 mg/dL L=0.51 H=0.95 SODIUM SERUM 2951-2 140 mmol/L L=136 H=145 POTASSIUM SERUM 2823-3 4.5 mmol/L L=3.4 H=5.2 CHLORIDE SERUM 2075-0 102 mmol/L L=96 H=110 CARBON DIOXIDE (CO2) 2028-9 34 mmol/L L=22 H= 34 ANION GAP 83552-0 4.0 mmol/L CALCIUM SERUM 94249-2 9.4 mg/dL L=8.2 H=10.2 BILIRUBIN TOTAL 1975-2 0.3 mg/dL L=0.0 H=1.3 ALK. PHOS. 6768-6 119 U/L L=46 H=116 SGOT (AST) 1920-8 9 U/L L=15 H=37 SGPT (ALT) 1742-6 17 U/L L=12 H=78 TOTAL PROTEIN 2885-2 6.4 gm/dL L=6.0 H=8.0 ALBUMIN 1751-7 3.5 gm/dL L=3.4 H=5.0 AGE 75 years eGFR (non-Afr.Amer.) 06055-7 60 mL/min eGFR (Afr-[place]aur[place]ian) 20674-4 73 mL/min MAGNESIUM SERUM - Collect Date/Time: 09:25 Test Name Code Test Result Test Units Test Ref Range MAGNESIUM 59110-0 1.9 mg/dL L=1.8 H=2.4 CBC W/ DIFFERENTIAL - Collect Date/Time: 06/26/2021 09:25 Test Name Code Test Result Test Units Test Ref Range WBC 6690-2 9.64 th/cmm L=5.00 H=10.00 NEUT % 80.6 % L=40.0 H=80.0 LYMPH % 8.8 % L=10.0 H=50.0 MONO % 91590-9 8.6 % L=2.0 H=12.0 EOS % 1.0 % L=0.0 H=8.0 BASO % 0.6 % L=0.0 H=3.0 IG % 2514-8 0.4 % L=0.0 H=1.1 NRBC % 99176-1 0.0 % L=0.0 H=0.0 NEUT abs count 751-8 7.8 th/cmm L=1.6 H=8.4 LYMPH abs count 731-0 0.9 th/cmm L=1.5 H=4.0 MONO abs count 742-7 0.8 th/cmm L=0.2 H=1.0 EOS abs count 711-2 0.1 th/cmm L=0.0 H=0.5 BASO abs count 704-7 0.1 th/cmm L=0.0 H=0.2 IG abs count 72142-6 0.0 th/cmm L=0.0 H=0.1 NRBC abs count 10748-9 0.0 mil/cmm L=0.0 H=0.0 RBC 789-8 3.69 mil/cmm L=3.90 H=5.40 HEMOGLOBIN 718-7 10.4 gm/dL L=12.0 H=16.0 HEMATOCRIT 4544-3 34 % L=37 H=47 MCV 787-2 93 fL L=82 H=92 MCH 785-6 28.2 pg L=27.0 H=31.0 MCHC 786-4 30.2 % L=32.0 H=36.0 RDW-SD 788-0 55.6 fL L=39.0 H=49.0 PLATELET COUNT 777-3 232 th/cmm L=150 H=450 URINALYSIS WITH MICRO AND REFLEX CULTURE - Collect Date/Time: 06/26/2021 11:30 Test Name Code Test Result Test Units Test Ref Range COLLECTION MODE: NOT STATED N/A Color 5778-6 YELLOW N/A yellow Appearance 5767-9 CLEAR N/A clear Glucose urine 65220-5 NEGATIVE N/A negative mg/dl Bilirubin 5770-3 NEGATIVE N/A negative Ketones 2514-8 NEGATIVE N/A negative mg/dl Spec gravity 5811-5 1.010 N/A 1.003 - 1.030 pH urine 2756-5 6.5 N/A 5.0 - 7.0 Protein 39513-2 NEGATIVE N/A negative mg/dl Urobilinogen 97515-8 0.2 N/A <or= 1 EU/dl Nitrite. 5802-4 NEGATIVE N/A negative Blood 5794-3 NEGATIVE N/A negative Leukocytes. SMALL N/A negative WBCs. 59467-0 10-25 N/A 0-5 / hpf RBCs none N/A 0-5 / hpf Epith cells 96144-7 10-25 N/A 0-5 / hpf Cell types squamous N/A Crystals amorphous N/A none Bacteria minimal N/A none Mucus none N/A none Casts none N/A none /lpf Active Medications Medications Administered During Visit Unknown or Not Available. Encounters Encounter Diagnosis Diagnosis Code Start Date Encounter for antineoplastic immunotherapy [id number] 06/26/2021 Social History Smoking Status Code Start Date End Date Current every day smoker [id number] Patient Decision Aids Unknown or Not Available. Discharge Instructions You were admitted to [facility] 01 on 06/26/2021 08:49 with a principal diagnosis of Encounter for antineoplasti c immunotherapy You had the following tests done: URINA LYSIS WITH MICRO AND REFLEX CULTURE CBC W/ DIFFERENTIAL COMPREHENSIVE METABOLIC RUFFIN EL (CMP) MAGNESIUM SERUM You were discharged from [facility] on 06/26/2021 08:49 Should you have any questions prior to [...]
--- NOTE | 2022-02-21 13:29 | DI.DEXA_ITS ---
Exam(s) XR DEXA BONE DENSITY W/WO CAITLIN EXAM: XR DEXA BONE DENSITY W/WO CAITLIN CLINICAL HISTORY: MENOPAUSAL, Z78.0, RT SHOULDER PAIN, M25.511 TECHNIQUE: [employer] densitometer analysis of left hip, lumbar spine and left forearm. COMPARISON: CT CT CHEST PE CTA from 01/06/2022 FINDINGS: Lateral view of the thoracic and lumbar spine shows increased thoracic kyphosis. The mid to lower th oracic vertebral bodies are obscured by overlying lung markings. No lumbar compression fractures are seen. Bone mineral density measurements of the lumbar spine correspond to a total T-score of -0.4, in the normal range. Bone mineral density measurements of the left hip correspond to a total T-score of -2.0. The femora l neck T-score is -1.7, in the osteopenic range. . The left forearm bone mineral density measurements were not performed due to motion. IMPRESSION: Osteopenia of the left hip. Normal bone mineral density of the lumbar spine.
== END ==
PROVIDERS: PCP Family Medicine; Visit Provider Family Medicine
DX: M25.511 Pain in right shoulder (principal); M85.88 Other specified disorders of bone density and structure, other site; Z78.0 Asymptomatic menopausal state
CPT/HCPCS: 77080

== ENCOUNTER 2022-03-03 03:01 | Outpatient (RCR) | payer MEDICARE, MEDICAID, SELFPAY ==
[2022-03-03] MEDS: Normal Saline Flush 10 ML SYR IVP (12:13)
[2022-03-03 12:23] LABS: Abs Immature Grans 0.03 10^3/uL (0.0-0.06); Absolute Basophil Count 0.08 10^3/uL (0.0-0.2); Absolute Eosinophil Count 0.15 10^3/uL (0.0-0.7); Absolute Lymphocyte Count 0.81 10^3/uL (1.2-3.4); Absolute Monocyte Count 0.56 10^3/uL (0.1-0.8); Absolute Neutrophil Count 7.65 10^3/uL (1.2-6.7); Basophils % 0.9; Eosinophils % 1.6; HCT 37.5 % (36.0-46.0); HGB 11.1 g/dL (11.2-15.7); Immature Grans % 0.3; Lymphocytes % 8.7; MCHC 29.6 % (32.0-36.0); MCV 95 fL (80-95); MPV 12.3 fL (8.0-11.0); Neutrophils % 82.5; Platelet Count 243 10^3/uL (130-400); RBC 3.96 10^6/uL (3.93-5.22); RDW 14.8 % (11.7-14.6); RDW-SD 51.3 fL; WBC 9.28 10^3/uL (4.4-10.8)
[2022-03-03 12:56] LABS: ALT 23 U/L (14-59); AST 15 U/L (15-37); Albumin 3.7 g/dL (3.4-5.0); Alkaline Phosphatase 134 U/L (46-116); Anion Gap 6.2 mmol/L (3-11); BUN 30 mg/dL (7-18); Bilirubin, Total 0.3 mg/dL (0.2-1.0); CO2 34.8 mmol/L (21.0-32.0); CREATININE 1.1 mg/dL (0.55-1.02); Calcium 9.6 mg/dL (8.5-10.1); Chloride 97 mmol/L (98-107); Estimated GFR 48.42 (mL/min/1.73m2); FREE T4 1.09 ng/dL (0.76-1.46); Glucose 203 mg/dL (74-106); Potassium 4.5 mmol/L (3.5-5.1); Sodium 138 mmol/L (136-145); TSH 1.05 uIU/mL (0.36-3.74); Total Protein 6.7 g/dL (6.4-8.2)
== END 2022-03-27 23:59 | disposition home or self-care (01) ==
LOC: INF 03:01
PROVIDERS: Internal Medicine Medical Oncology; PCP Family Medicine; Visit Provider Nurse Practitioner Adult Health
DX: C34.32 Malignant neoplasm of lower lobe, left bronchus or lung (principal); Z79.899 Other long term (current) drug therapy; Z45.2 Encounter for adjustment and management of vascular access device
CPT/HCPCS: 36591; 80053; 83735; 84439; 84443; 85025

== ENCOUNTER → 2022-03-28 01:03 | Outpatient (CLI) | payer MEDICARE, MEDICAID, SELFPAY ==
--- NOTE | 2022-03-28 | DI.CT_ITS ---
Exam(s) CT CHEST/ABD WO EXAM: CT CHEST/ABD WO CLINICAL HISTORY: LLL LUNG CA,C34.32,ASSESS TREATMENT RESPONSE,C34.32 TECHNIQUE: Noninfused CT scan of the chest and abdomen was performed. Oral contrast was administere d for bowel opacification. This study did not include the pelvis. COMPARISON: CT CT CHEST/ABD W from 10/29/[address] CHEST PE CTA from 01/06/2022 FINDINGS: CT CHEST WITHOUT IV CONTRAST: LUNGS: Previously described 1 centimeter nodular infiltrate in the left upper lobe is unchanged from 10/29/2021. Also on changes similar appearing nodular infiltrate in the apical posterior segment of the left upper lobe. Also unchanged is mild infiltrate in the superior segment of the left lower lob e. Also unchanged 6 millimeter nodule in the superior segment left lower lobe. Other nodule in left upper lobe is also unchanged as is some infiltrate in the lingular segment of the left lung. Infilt rate laterally in the left lower lobe is unchanged. No pleural effusion on the left side. In the opposite-right lung there is a loculated pleural effusion again noted. This is unchanged in s ize. Pleural base nodular infiltrate in the medial aspect of the right upper lobe is unchanged as ar e other nodular infiltrates in the right upper lobe and increased markings in the right lower lobe. MEDIASTINUM: No new obvious hilar nor mediastinal adenopathy. Large nodule in the right thyroid lobe is again noted. CARDIAC: Mild cardiomegaly. No pericardial effusion. Caliber thoracic aorta is within normal limits . Calcified aortic valve noted. Caliber of the thoracic aorta is upper normal. OSSEOUS: MILD COMPRESSION FRACTURE OF T8 is unchanged. CT ABDOMEN WITHOUT IV CONTRAST: There is no ascites in the upper abdomen. No new obvious focal hepatic lesions evident on this nonin fused study. Gallbladder is again noted be surgically absent. CBD diameter is upper normal. No new significant findings in the pancreas. Spleen size upper normal. No intrasplenic lesions evident on this noninfused study. No new significant adrenal masses. Small cyst again noted in the medial asp ect of the left kidney and medial aspect of the right kidney. The abdominal aorta is calcified upper normal diameter. Lower most images of this study do not include the aortic bifurcation. No bowel o bstruction evident. No significant anterior abdominal hernia in the field of view of this study whic h is above the umbilicus. Pelvis was not scanned. IMPRESSION: 1. There are multiple nodular infiltrates in the lung [place] again noted, unchanged from 10/29/2021. 2. Stable appearance of the loculated pleural effusion on the right side. 3. Gallbladder again noted be surgically absent. CBD not dilated. 4. No bowel obstruction no ascites.
--- OUTSIDE RECORDS SUMMARY | 2022-03-28 01:21 | XMS_ITS | Encounter Summary ---
:1945 Author Organization [facility] [place] [address] Care Team Providers Name Role Phone Arianna Nunez MD Primary Care Provider Reason for Referral Diagnostic Test (Routine) - Authorized Specialty Diagnoses / Procedures Referred By Contact Refer red To Contact Radiology Diagnoses 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 Orin Summers APRN Procedures CT Chest & Abdomen wo Contrast [facility] HEMATOLOGY [place] [address] Referral ID Status Reason Start Expiration Visits Visits Date Date Requested Authorized [id number] Authorized Specialty 03/03/2022 09/02/2023 1 1 Service Requested Encounter Details Date Type Department Care Team Description 03/03/2022 Office Visit Hematology/Oncology Sheri Carlson MD [facility] HEMATOLOGY/[place] [address] 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; at [facility] Orin Summers APRN [facility] HEMATOLOGY [place] [address] [id number] Social History Tobacco Use Types Packs/Day Years Used Date Current Every Day Smoker Cigarettes 0.25 63 Smokeless Tobacco: Never Used Comments: 1 cigarette daily Sex Assigned at Date Recorded Not on file documented as of this encounter Last Filed Vital Signs Vital Sign Reading Time Taken Comments Blood Pressure 130/59 03/03/2022 1:00 PM EDT Pulse 86 03/03/2022 1:00 PM EDT Temperature 36.6 ??C (97.9 ??F) 03/03/2022 1:00 PM EDT Respiratory Rate 22 03/03/2022 1:00 PM EDT Oxygen Saturation 92% 03/03/2022 1:00 PM 92% on 2L o f oxygen EDT via NC. Inhaled Oxygen - - Concentration Weight 77.3 kg (170 lb 6.4 03/03/2022 1:00 PM oz) EDT Height 158.5 cm (5' 2.4) 03/03/2022 1:00 PM EDT Body Mass Index 30.77 03/03/2022 1:00 PM EDT documented in this encounter Progress Notes ForOrin love APRN - 03/03/2022 1:00 PM EDT Images from the original note were not included. Hematology & Medical Oncology [place] [phone] Carly Arguelles is being seen for the evaluation of lung cancer. Assessment & Plan: Carly Arguelles is a 76 y.o. female patient with a past medical history significant for HTN, COPD (on 2L home O2) stage I breast cancer in ~1999 (s/p b/l mastectomies) , T2 NSCLC s/p RLL lobectomy and adjuvant systemic therapy in 2006 diagnosed with, chronic LBP on morphine (morphine prescribed by her PCP) being treated for metastatic adenocarcinoma of the lung as detailed below. She is currently on 2nd line pembrolizumab with overall palliative intent. She has transferred her care to [facility] as she has recently moved. She has a home health nurse and aidthat visit twice weekly. She lives alone. Has a lifeline. # Metastatic adenocarcinoma of the lung - CT scan from 10.29.21 looked good - Labs and toxicities assessed and acceptable for ongoing treatment. - Continue maintenance pembrolizumab - CT from 01/06/22 showed no evidence of PE and stable appearance of right pleural collection and areas of nodularity and scarring. No further chest pain - Likely restage in ~February/March time frame - albuterol nebulized treatment today while in infusion # Somnolent episodes- May have been related to C02 retention and seems better on lower O2 (2L or less) Orin Summers SAMPLE TAKER OPERATOR 03/03/2022 Medical Oncology & Hematology [facility] HPI/Interval History/Subjective: Last seen 02/03/22 No further chest pain. 01/05 back pain (chronic issue at baseline)- on chronic morphine. Taking MS Contin 30 mg BID plus additional midday dose of 15 mg as needed. States she did not take this today. Continues to get drowsy and dozes off easily - she does not believe this is any worse. Breathing unchanged on 1-2L O2 nasal cannula (is CO2 retainer she notes). She states that she never goes over 2L. Madelin states that O2 sat. Is low at home when nurses come - she refuses to go to the ED when they have asked her to. Sleeps OK at night - not using sleep aids. On prednisone 2.5mg daily. Headaches occasional (every three to four days) States that she uses her nebulizer/ inhalers regularly. She does not feel her breathing is any worse Has had vaginal/groin fungal infection since October. Intense itching. Sees PCP and is on antifungal cream. Wears diaper all the time and believes this is complicating this healing process. PCP is sending her to gynecology for this. No other rashes No diarrhea. Uses Miralax PRN. Has had COVID vaccine and booster. Uses a rolling walker at baseline still smokes two cigarettes daily - no patches/lozenges. Mag level WNL today Social History/Support Network: Home situation: . in November 2020 which was very difficult.. Moved to [facility] 2021. Lives in [facility] apartments (prior living arrangement that she had with her stepson was deemed unsafe) Lives alone. Working well. Utilizes meals on wheels and RTC services. Uses Medicaid. 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 Also worked in [place]. Tobacco use: Still smokes 1 cig per day. 50+ pk year hx. Alcohol use: Does not drink. Financial Distress: Limited. Arvind Quigley is her case consultant through [employer] Likes to read and do jigsaw puzzles. Likes mysteries Family History: Mother- Dscd 50 due diabetic complications Father- Dscd due to CHF. Doesn't know a lot of details Oncology Overview: # Malignant neoplasm of female breast ([facility]) 1997: Stage 1 Left ductal breast cancer - T1a,N0,M0,G1 - ER+/LA-. 0/12 node involvement. - Completed 5 years tamoxifen. # NSCLC T2N0 - 2006: Right lower lobectomy - Positive margins at visceral pleura - Adjuvant chemoradiation with carboplatin/taxol. Stage IV Adenocarcinoma of the lung Course Problem 28 March 2018: Right non-small cell [...] to maintenance Bevacizumab -10/31/2020: CT scans showed new 2.5 cm liver lesion in the right hepatic dome. This was confirmed with a follow-up PET scan which also identified FDG avid left hilar lymph nodes and b/l lung nodules Started treatment with pembrolizumab. 02/15- PET scan showed partial treatment response with decrease in FDG activity of the mediastinal adenopathy and right liver lesion. Majority of the pulmonary nodules also demonstrated partial therapeutic response. The right basilar pleural effusion with a thickened rim stable compared to prior scans.No uptake within this area. Treatment was held for a couple of months due to worsening respiratory status, depression and lethargy. These were restarted in March 2021 after discussing the risk and benefits. Expressed that she wanted to continue treatments as long as she can handle them and preferred not to have any more interruptions. Pathology: Adenocarcinoma 90-100% Molecular Data: QNS at time of biopsy 10.07.21 Pembrolizumab as below ONCBCN ONCOLOGY (AMB) 10/07/2021 10/28/2021 11/20/2021 12/16/2021 01/13/2022 02/03/2022 Day, Cycle Day 1, Cycle 1 Day 1, Cycle 2 Day 1, Cycle 3 Day 1, Cycle 4 Day 1, Cycle 5 Day 1, Cycle 6 pembrolizumab 25 mg/mL (Keytruda) IV 200 mg 200 mg 200 mg 200 mg 200 mg 200 mg Patient Active Problem List Diagnosis Date Noted ??? Secondary malignant neoplasm of liver 10/07/2021 ??? Medication management 10/07/2021 ??? 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 Codeine Anaphylaxis Patient states she is not allergic to codeine 04/09/21 13:49 ??? Penicillins Anaphylaxis ??? Tetracycline Anaphylaxis Medications 02/03/22 1258 Medication Sig Taking? magnesium oxide (Mag-Ox) 400 mg (241.3 mg magnesium) Tablet Take 1 tablet by mouth daily. losartan (Cozaar) 50 mg Tablet fluconazole (Diflucan) 150 mg Tablet morphine CR (Ms Contin) 30 mg Tablet Sustained Release Take 30 mg by mouth Every 12 hours. morphine CR (Ms Contin) 15 mg Tablet Sustained Release TAKE 1 TABLET BY MOUTH EVERY MORNING famotidine (Pepcid) 20 mg Tablet TAKE 1 TABLET BY MOUTH TWICE DAILY FOR GERD Pulmicort Flexhaler 90 mcg/actuation Aerosol Powdr Breath Activated INHALE 2 PUFFS BY MOUTH TWO TIMES A DAY predniSONE (Deltasone) 2.5 mg Tablet TAKE 1 TABLET BY MOUTH DAILY torsemide (Demadex) 20 mg Tablet Take 30 mg by mouth. nicotine (Nicoderm CQ) 21 mg/24 hr Patch 24 hr APPLY 1 PATCH TO SKIN ONCE A DAY polyethylene glycoL (Miralax) 17 gram/dose Powder MIX 1 CAPFUL WITH 8 OUNCES OF LIQUID AND TAKE BY MOUTH ONCE DAILY OR NEEDED acetaminophen (Tylenol) 500 mg Tablet Take 325 mg by mouth Every 6 hours as needed. omeprazole (PriLOSEC) 40 mg Capsule, Delayed Release(E.C.) TAKE 1 CAPSULE BY MOUTH TWICE DAILY FOR 2TO 4 WEEKS mupirocin (Bactroban) 2 % Ointment APPLY TO AFFECTED AREA TWICE DAILY FOR ONE WEEK OR UNTIL RESOLVED atorvastatin (Lipitor) 20 mg Tablet TAKE 1 TABLET BY MOUTH EVERY NIGHT AT BEDTIME cetirizine (ZyrTEC) 10 mg Tablet TAKE 1 TABLET BY MOUTH AT BEDTIME ondansetron ODT (Zofran-ODT) 8 mg Tablet, Rapid Dissolve TAKE 1 TABLET BY MOUTH SUBLINGUALLY EVERY 8HOURS FOR NAUSEA AND VOMITTING amitriptyline (Elavil) 100 mg Tablet TAKE 1 TABLET BY MOUTH AT BEDTIME albuteroL (ACCUNEB) 1.25 mg/3 mL Solution for Nebulization INHALE BY MOUTH 2.5 MG THREE TIMES A DAY albuteroL 90 mcg/actuation HFA Aerosol Inhaler 2 puff(s) inhaled 4 times a day spironolactone (Aldactone) 25 mg Tablet TAKE 1 TABLET BY MOUTH DAILY Spiriva with HandiHaler 18 mcg Capsule, w/Inhalation Device INHALE THE CONTENTS OF 1 CAPSULE VIA INHALATION DEVICE EVERY DAY DIRECTED prochlorperazine (Compazine) 5 mg Tablet 1 tab(s) orally 3 times a day lidocaine-prilocaine (EMLA) Cream APPLY TO THE AREA PRIOR TO PORT ACCESS ipratropium-albuteroL (Duoneb) 0.5 mg-3 mg(2.5 mg base)/3 mL Solution for Nebulization 1 INHALATION FOUR TIMES A DAY NEEDED FOR DIFFICULTY BREATHING [facility] Spacer USE DIRECTED DULoxetine DR (Cymbalta) 60 mg Capsule, Delayed Release(E.C.) TAKE 1 CAPSULE BY MOUTH ONCE DAILY clotrimazole (LOTRIMIN) 1 % Cream APPLY EXTERNALLY TO THE AFFECTED AREA TWICE DAILY FOR 7 DAYS amLODIPine (Norvasc) 10 mg Tablet Take 5 mg by mouth Daily. naloxone HCl (NARCAN NASL) 4 mg by Nasal route as needed. Polyvinyl Alcohol-Povidone (Refresh) 1.4-0.6 % Dropperette Apply to eye Daily. vit A/vit C/vit E/zinc/copper (ICAPS AREDS ORAL) Take by mouth Daily. I reviewed the problem list, allergies, medications, past medical history, social history and familyhistory within the EPIC encounter. Pertinent details are noted above. Pertinent positives and negative from the Review of Systems are as summarized above in the HPI. Physical Exam: Wt Readings from Last 3 Encounters: 03/03/22 77.3 kg (170 lb 6.4 oz) 02/03/22 75.5 kg (166 lb 6.4 oz) 01/13/22 76.3 kg (168 lb 3.2 oz) Temp Readings from Last 3 Encounters: 03/03/22 36.6 ??C (97.9 ??F) (Temporal) 02/03/22 36.2 ??C (97.2 ??F) (Temporal) 01/13/22 36.1 ??C (97 ??F) (Temporal) BP Readings from Last 3 Encounters: 03/03/22 130/59 02/03/22 125/55 01/13/22 137/54 Pulse Readings from Last 3 Encounters: 03/03/22 86 02/03/22 84 01/13/22 84 There is no height or weight on file to calculate BSA. KPS Score ECOG Grade Definition 90-100 0 Fully active, able to carry on all pre-disease performance without restriction 70-80 1 Restricted in physically strenuous activity but ambulatory and able to carry out work of a light or sedentary nature, e.g., light house work, office work X 50-60 2 Ambulatory and capable of all selfcare but unable to carry out any work activities; up andabout more than 50% of waking hours 30-40 3 Capable of only limited selfcare; confined to bed or chair more than 50% of waking hours 10-20 4 Completely disabled; cannot carry on any selfcare; totally confined to bed or chair Physical Exam GENERAL: Appears well in no acute distress. Using rollator walker. EYES: EDGARDO NECK: supple without cervical adenopathy CARDIOVASCULAR: Heart with regular rate and rhythm without S3,S4 or murmurs. No cyanosis or peripheral edema. PULMONARY: Effort WNL - BS diminished on right side. Scattered wheezes noted bilaterally. ABDOMEN: Abdomen soft and non-tender. BS normactive MUSCULOSKELETAL: Moves and ambulates using rollator without additional assist. Gait appears steady EXTREMITIES: No calf tenderness - 1+ calf edema bilaterally SKIN: No rashes, bruises or petechiae. (did not examine groin area which is location of fungal infection) NEURO: Alert and oriented to person, place, time. Speech clear and conversation appropriate to situation. Noted to nod head and appear to fall asleep if not being spoken to or engaged. Review of Laboratory Data: 02/03/22 WBC 7.08, Hgb 10.8, MCV 96, plat ct 230, ANC 5.51 Na 138, K+ 4.0, BUN 23, Creat 1.0, Glucose 148, Calcium 9.5, Mag 1.7, Total bili 0.3, AST 14, ALT 21, Alk Phos 126, Total Protein 6.5, albumin 3.7, TSH 1.42, Free T4 1.01 4.18.22 White blood cells 8.75 hemoglobin 10.6 platelet count 269,000 absolute neutrophil count 6.98 Sodium 136 potassium 4.7 BUN 27 creatinine 1.0 glucose 153 calcium 9.7 magnesium 2.1 iron level on 415 was 25 TIBC 319 saturation was 8 ferritin was 25 Back to 01/13/2022 total bilirubin 0.4 AST 11 ALT 19 alk phos 131 slightly elevated up from 119 Free T4 1.10 TSH 2.66 12/07/21- WBC-9.02 Hgb/Hct-10.2/33.7 Plt-246 ANC-7.55 Na-137 K+-4.2 BUN/Cr-37/1.2 Glucose-103 Ca-9.6 Mg-1.7 T. Bili-0.3 AST-17 ALT-20 Alk phos-100 Albumin-3.9 TSH-1.57 FT4-1.05 10/28/21- WBC-8.15 Hgb/Hct-11.2/38.1 Plt-212 ANC-6.26 Na-141 K+-3.9 BUN/Cr-27/0.9 Glucose-122 Ca-9.9 Mg-1.7 T. Bili-0.3 AST-13 ALT-27 Alk phos-156 Albumin-3.7 Free T4-1.01 10/07/2021 Sodium 140 potassium 4.5 chloride 101 BUN 29 creatinine 0.9 glucose 110 calcium 10.1 magnesium 1.9 total bilirubin 0.5 AST 13 ALT 22 alk phos 151 albumin 3.7 TSH 3.16 Free T4 1.06 White blood cell count 7.38 hemoglobin 11.1 platelet count 222,000 absolute neutrophil count 5.42 Review of Imaging Data: 01.06.22 CTA performed in the [facility] ED compared to 10/29/2021 No evidence of pulmonary embolism stable appearance of right pleural collection and areas of nodularity and scarring 10.29.21 Review of Pathology Data: Yovanny Carlson MD - 03/03/2022 1:00 PM EDT Images from the original note were not included. Hematology & Medical Oncology [place] [phone] Carly Arguelles is being seen for the evaluation of lung cancer. Assessment & Plan: Carly Arguelles is a 76 y.o. female patient with a past medical history significant for HTN, COPD (on 2L home O2) stage I breast cancer in ~1999 (s/p b/l mastectomies) , T2 NSCLC s/p RLL lobectomy and adjuvant systemic therapy in 2006 diagnosed with, chronic LBP on morphine (morphine prescribed by her PCP) being treated for metastatic adenocarcinoma of the lung as detailed below. She is currently on 2nd line pembrolizumab with overall palliative intent. She has transferred her care to [facility] as she has recently moved. She has a home health nurse and aidthat visit weekly. She lives alone. Has a lifeline. She states she hasn't fallen recently but still having difficulty falling asleep. Dr. Osuna started her low dose prednisone and took her off some medications and she is doing better. # Metastatic adenocarcinoma of the lung - CT scan from 10.29.21 looked good- recent ED visit for chestpain without clear progression. Chest pain seems to be improving. - Labs and toxicities assessed and acceptable for ongoing treatment. - Continue maintenance pembrolizumab - CT from 01/06/22 showed no evidence of PE and stable appearance of right pleural collection and areas of nodularity and scarring. - Likely restage in ~February/March time frame # Somnolent episodes- May have been related to C02 retention and seems better on lower O2 (2L) - occasionally goes down to 1L. Orin Byrdkate SAMPLE TAKER OPERATOR 03/03/2022 Medical Oncology & Hematology [facility] HPI/Interval History/Subjective: Last seen 01/13/22 Seen in the ED 4.11 with left sided chest pain. Had CTA negative for PE and labsEKG. Not etiology identified. Left sided chest pain occurs rarely and Madelin described as much better. Last a few minutes and resolves Breathing unchaged on 1-2L O2 nasal cannula (is CO2 retainer she notes) 4 back pain (chronic issue at baseline)- on chronic morphine Less drowsy now with few naps during day. Sleeps well at night On prednisone 2.5mg daily. Headaches occasional (every three to four days) Uses her nebulizer regularly (two - three daily) Has had vaginal/groin fungal infection since October. Intense itching. Sees PCP and is on antifungal cream. Wears diaper all the time and believes this is complicating this healing process No other rashes No diarrhea. Uses Miralax PRN. Has had COVID vaccine and booster. Uses a rolling walker at baseline still smokes two cigarettes daily - no patches/lozenges. Mag level low today - she has Mag Oxide at home and not currently taking - asked to resume 1 tab every other day. Social History/Support Network: Home situation: . in November 2020 which was very difficult.. Moved to [facility] 2021. Lives [address] [facility] apartments (prior living arrangement that she had with her stepson was deemed unsafe) Lives alone. Working well. Utilizes meals on wheels and RTC services. Uses Medicaid. 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 Also worked in [place]. Tobacco use: Still smokes 1 cig per day. 50+ pk year hx. Alcohol use: Does not drink. Financial Distress: Limited. Arvind Quigley is her case consultant through [employer] Likes to read and do jigsaw puzzles. Likes mysteries Family History: Mother- Dscd 50 due diabetic complications Father- Dscd due to CHF. Doesn't know a lot of details Oncology Overview: # Malignant neoplasm of female breast ([facility]) 1997: Stage 1 Left ductal breast cancer - T1a,N0,M0,G1 - ER+/LA-. 0/12 node involvement. - Completed 5 years tamoxifen. # NSCLC T2N0 - 2006: Right lower lobectomy - Positive margins at visceral pleura - Adjuvant chemoradiation with carboplatin/taxol. Stage IV Adenocarcinoma of the lung Course Problem 28 March 2018: Right non-small cell [...] to maintenance Bevacizumab -10/31/2020: CT scans showed new 2.5 cm liver lesion in the right hepatic dome. This was confirmed with a follow-up PET scan which also identified FDG avid left hilar lymph nodes and b/l lung nodules Started treatment with pembrolizumab. 02/15- PET scan showed partial treatment response with decrease in FDG activity of the mediastinal adenopathy and right liver lesion. Majority of the pulmonary nodules also demonstrated partial therapeutic response. The right basilar pleural effusion with a thickened rim stable compared to prior scans.No uptake within this area. Treatment was held for a couple of months due to worsening respiratory status, depression and lethargy. These were restarted in March 2021 after discussing the risk and benefits. Expressed that she wanted to continue treatments as long as she can handle them and preferred not to have any more interruptions. Pathology: Adenocarcinoma 90-100% Molecular Data: QNS at time of biopsy 10.07.21 Pembrolizumab as below ONCBCN ONCOLOGY (AMB) 10/07/2021 10/28/2021 11/20/2021 12/16/2021 01/13/2022 02/03/2022 Day, Cycle Day 1, Cycle 1 Day 1, Cycle 2 Day 1, Cycle 3 Day 1, Cycle 4 Day 1, Cycle 5 Day 1, Cycle 6 pembrolizumab 25 mg/mL (Keytruda) IV 200 mg 200 mg 200 mg 200 mg 200 mg 200 mg Patient Active Problem List Diagnosis Date Noted ??? Secondary malignant neoplasm of liver 10/07/2021 ??? Medication management 10/07/2021 ??? 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 Codeine Anaphylaxis Patient states she is not allergic to codeine 04/09/21 13:49 ??? Penicillins Anaphylaxis ??? Tetracycline Anaphylaxis Medications 03/03/22 5747 Medication Sig Taking? magnesium oxide (Mag-Ox) 400 mg (241.3 mg magnesium) Tablet Take 1 tablet by mouth daily. Yes losartan (Cozaar) 50 mg Tablet Yes fluconazole (Diflucan) 150 mg Tablet Yes morphine CR (Ms Contin) 30 mg Tablet Sustained Release Take 30 mg by mouth Every 12 hours. Yes morphine CR (Ms Contin) 15 mg Tablet Sustained Release TAKE 1 TABLET BY MOUTH EVERY MORNING Yes famotidine (Pepcid) 20 mg Tablet TAKE 1 TABLET BY MOUTH TWICE DAILY FOR GERD Yes Pulmicort Flexhaler 90 mcg/actuation Aerosol Powdr Breath Activated INHALE 2 PUFFS BY MOUTH TWO TIMES A DAY Yes predniSONE (Deltasone) 2.5 mg Tablet TAKE 1 TABLET BY MOUTH DAILY Yes torsemide (Demadex) 20 mg Tablet Take 30 mg by mouth. Yes nicotine (Nicoderm CQ) 21 mg/24 hr Patch 24 hr APPLY 1 PATCH TO SKIN ONCE A DAY Yes polyethylene glycoL (Miralax) 17 gram/dose Powder MIX 1 CAPFUL WITH 8 OUNCES OF LIQUID AND TAKE BY MOUTH ONCE DAILY OR NEEDED Yes acetaminophen (Tylenol) 500 mg Tablet Take 325 mg by mouth Every 6 hours as needed. Yes omeprazole (PriLOSEC) 40 mg Capsule, Delayed Release(E.C.) TAKE 1 CAPSULE BY MOUTH TWICE DAILY FOR 2TO 4 WEEKS Yes mupirocin (Bactroban) 2 % Ointment APPLY TO AFFECTED AREA TWICE DAILY FOR ONE WEEK OR UNTIL RESOLVEDYes atorvastatin (Lipitor) 20 mg Tablet TAKE 1 TABLET BY MOUTH EVERY NIGHT AT BEDTIME Yes cetirizine (ZyrTEC) 10 mg Tablet TAKE 1 TABLET BY MOUTH AT BEDTIME Yes ondansetron ODT (Zofran-ODT) 8 mg Tablet, Rapid Dissolve TAKE 1 TABLET BY MOUTH SUBLINGUALLY EVERY 8HOURS FOR NAUSEA AND VOMITTING Yes amitriptyline (Elavil) 100 mg Tablet TAKE 1 TABLET BY MOUTH AT BEDTIME Yes albuteroL (ACCUNEB) 1.25 mg/3 mL Solution for Nebulization INHALE BY MOUTH 2.5 MG THREE TIMES A DAY Yes albuteroL 90 mcg/actuation HFA Aerosol Inhaler 2 puff(s) inhaled 4 times a day Yes spironolactone (Aldactone) 25 mg Tablet TAKE 1 TABLET BY MOUTH DAILY Yes Spiriva with HandiHaler 18 mcg Capsule, w/Inhalation Device INHALE THE CONTENTS OF 1 CAPSULE VIA INHALATION DEVICE EVERY DAY DIRECTED Yes prochlorperazine (Compazine) 5 mg Tablet 1 tab(s) orally 3 times a day Yes lidocaine-prilocaine (EMLA) Cream APPLY TO THE AREA PRIOR TO PORT ACCESS Yes ipratropium-albuteroL (Duoneb) 0.5 mg-3 mg(2.5 mg base)/3 mL Solution for Nebulization 1 INHALATION FOUR TIMES A DAY NEEDED FOR DIFFICULTY BREATHING Yes Noel Enriquez [facility] Spacer USE DIRECTED Yes DULoxetine DR (Cymbalta) 60 mg Capsule, Delayed Release(E.C.) TAKE 1 CAPSULE BY MOUTH ONCE DAILY Yes clotrimazole (LOTRIMIN) 1 % Cream APPLY EXTERNALLY TO THE AFFECTED AREA TWICE DAILY FOR 7 DAYS Yes amLODIPine (Norvasc) 10 mg Tablet Take 5 mg by mouth Daily. Yes naloxone HCl (NARCAN NASL) 4 mg by Nasal route as needed. Yes Polyvinyl Alcohol-Povidone (Refresh) 1.4-0.6 % Dropperette Apply to eye Daily. Yes vit A/vit C/vit E/zinc/copper (ICAPS AREDS ORAL) Take by mouth Daily. Yes I reviewed the problem list, allergies, medications, past medical history, social history and familyhistory within the EPIC encounter. Pertinent details are noted above. Pertinent positives and negative from the Review of Systems are as summarized above in the HPI. Physical Exam: Wt Readings from Last 3 Encounters: 03/03/22 77.3 kg (170 lb 6.4 oz) 02/03/22 75.5 kg (166 lb 6.4 oz) 01/13/22 76.3 kg (168 lb 3.2 oz) Temp Readings from Last 3 Encounters: 03/03/22 36.6 ??C (97.9 ??F) (Temporal) 02/03/22 36.2 ??C (97.2 ??F) (Temporal) 01/13/22 36.1 ??C (97 ??F) (Temporal) BP Readings from Last 3 Encounters: 03/03/22 130/59 02/03/22 125/55 01/13/22 137/54 Pulse Readings from Last 3 Encounters: 03/03/22 86 02/03/22 84 01/13/22 84 Body surface area is 1.84 meters squared. KPS Score ECOG Grade Definition 90-100 0 Fully active, able to carry on all pre-disease performance without restriction 70-80 1 Restricted in physically strenuous activity but ambulatory and able to carry out work of a light or sedentary nature, e.g., light house work, office work X 50-60 2 Ambulatory and capable of all selfcare but unable to carry out any work activities; up andabout more than 50% of waking hours 30-40 3 Capable of only limited selfcare; confined to bed or chair more than 50% of waking hours 10-20 4 Completely disabled; cannot carry on any selfcare; totally confined to bed or chair Physical Exam GENERAL: Appears well in no acute distress. Using rollator walker EYES: EDGARDO NECK: supple without cervical adenopathy CARDIOVASCULAR: Heart with regular rate and rhythm without S3,S4 or murmurs. No cyanosis or peripheral edema. PULMONARY: Effort WNL - BS diminished on right side. No wheezing or crackles. ABDOMEN: Abdomen soft and non-tender. No palpable masses or hepatosplenomegaly. MUSCULOSKELETAL: Moves and ambulates using rollator. Moves easily on and off exam table EXTREMITIES: No calf tenderness - 1+ calf edema bilaterally SKIN: No rashes, bruises or petechiae. (did not examine groin area which is location of fungal infection) NEURO: Alert and oriented to person, place, time. Speech clear and conversation appropriate to situation Review of Laboratory Data: 02/03/22 WBC 7.08, Hgb 10.8, MCV 96, plat ct 230, ANC 5.51 Na 138, K+ 4.0, BUN 23, Creat 1.0, Glucose 148, Calcium 9.5, Mag 1.7, Total bili 0.3, AST 14, ALT 21, Alk Phos 126, Total Protein 6.5, albumin 3.7, TSH 1.42, Free T4 1.01 4..22 White blood cells 8.75 hemoglobin 10.6 platelet count 269,000 absolute neutrophil count 6.98 Sodium 136 potassium 4.7 BUN 27 creatinine 1.0 glucose 153 calcium 9.7 magnesium 2.1 iron level on 415 was 25 TIBC 319 saturation was 8 ferritin was 25 Back to 01/13/2022 total bilirubin 0.4 AST 11 ALT 19 alk phos 131 slightly elevated up from 119 Free T4 1.10 TSH 2.66 12/07/21- WBC-9.02 Hgb/Hct-10.2/33.7 Plt-246 ANC-7.55 Na-137 K+-4.2 BUN/Cr-37/1.2 Glucose-103 Ca-9.6 Mg-1.7 T. Bili-0.3 AST-17 ALT-20 Alk phos-100 Albumin-3.9 TSH-1.57 FT4-1.05 10/28/21- WBC-8.15 Hgb/Hct-11.2/38.1 Plt-212 ANC-6.26 Na-141 K+-3.9 BUN/Cr-27/0.9 Glucose-122 Ca-9.9 Mg-1.7 T. Bili-0.3 AST-13 ALT-27 Alk phos-156 Albumin-3.7 Free T4-1.01 10/07/2021 Sodium 140 potassium 4.5 chloride 101 BUN 29 creatinine 0.9 glucose 110 calcium 10.1 magnesium 1.9 total bilirubin 0.5 AST 13 ALT 22 alk phos 151 albumin 3.7 TSH 3.16 Free T4 1.06 White blood cell count 7.38 hemoglobin 11.1 platelet count 222,000 absolute neutrophil count 5.42 Review of Imaging Data: 01.06.22 CTA performed in the [facility] ED compared to 10/29/2021 No evidence of pulmonary embolism stable appearance of right pleural collection and areas of nodularity and scarring 2.10.19 Review of Pathology Data: documented in this encounter Plan of Treatment Upcoming Encounters Date Type Specialty Care Team Description 04/07/2022 Office Visit Hematology and Oncology Guevara Carlson MD [facility] HEMATOLOGY/[place] [address] Orin Summers APRN [facility] HEMATOLOGY [place] [address] 04/07/2022 Infusion Hematology and Oncology Scheduled Orders Name Type Priority Associated Diagnoses Order S chedule CT Chest & Abdomen wo Imaging Routine Primary malignant E xpected: 03/27/2022 Contrast neoplasm of left lower (Appr oximate), lobe of lung Expires: 2021 documented as of this encounter Visit Diagnoses Diagnosis 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 Malignant neoplasm of lower lobe, bronch us, or lung Wheezing documented in this encounter Care Teams Hedge Trimmer Relationship Specialty Start Date End Date Arianna Nunez MD PCP - General Family Medicine 10/28/21 [address] [place] [address] documented as of this encounter
--- OUTSIDE RECORDS SUMMARY | 2022-03-28 01:21 | XMS_ITS | Encounter Summary ---
:1945 Author Organization [facility] [place] [address] Care Team Providers Name Role Phone Arianna Nunez MD Primary Care Provider Reason for Visit Reason Comments Chemotherapy Cycle 4, Day 1; Pembro Treatment/Therapy Plan Authorization (Routine) - Authorized Specialty Diagnoses / Procedures Referred By Contact Refer red To Contact Diagnoses 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 Secondary malignant neoplasm of liver Medication management Yovanny Carlson MD [facility] Hem Onc Office Procedures [address] HEMATOLOGY/[place] [phone] Fax: Referral ID Status Reason Start Date Expiration Date Visits V isits Requested Authorized [id number] Authorized 09/28/2021 09/27/2022 99 99 Encounter Details Date Type Department Care Team Description 12/16/2021 Infusion Hematology Oncology at [facility] malignant neoplasm of liver; [facility] Medication management; [address] [place] [address] Primary malignant neoplasm o f left lower lobe of lung [place], [place] [phone] Social History Tobacco Use Types Packs/Day Years Used Date Current Every Day Smoker Cigarettes 0.25 63 Smokeless Tobacco: Never Used Comments: 1 cigarette daily Sex Assigned at Date Recorded Not on file documented as of this encounter Progress Notes Cathryn Ma RN - 12/16/2021 3:00 PM EDT INFUSION THERAPY ADMINISTRATION NOTES DIAGNOSIS: NSCLC CYCLE #: 4, Day 1 - Pembrolizumab REASON FOR VISIT: To receive chemotherapy. SUBJECTIVE: Carly offers no complaints. OBJECTIVE: O2, 3L NC continuously. Seen by provider. Ready to treat. LAB DATA: WBC - 9.02, Hg - 10.2, Plt Ct - 246, ANC - 7.55, BUN/Cr - 37/1.2, MG - 1.2, TSH/Free T4 - 1.57/1.05 IV ACCESS: Port accessed off site. Flushes readily with brisk blood return. Pre administration: Chemotherapy orders independently verified for drug name, route, and dosage per patient's height, weight and BSA by CATHRYN MA, DOMENIC and Staff Pharmacist(s). REACTIONS (DESCRIPTION, TIME, INTERVENTION AND EFFECTIVENESS) none ASSESSMENT: Carly was awake, alert and tolerated treatment well. Port flushed with 20 cc's of NS and 500 units of heparin and de-accessed. PLAN: Return to clinic in three weeks. 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 Malignant neoplasm of lower lobe, bronch us, or lung documented in this encounter Administered Medications Inactive Administered Medications - up to 3 most recent administrations Medication Order MAR Action Action Date Dose Rate Site heparin (pf) (porcine) (100 Given 12/16/2021 4:19 PM EDT 500 Uni ts units/mL) flush 5 mL syringe 500 Units 500 Units, Intravenous, ONCE PRN, Starting on Thu12/16/21 at 1444, Until Thu12/16/21 at 2228, Line Care, Refer to Intravenous (IV) Procedure: Accessing Implanted Vascular Access Devices (654) procedure and/or Intravenous (IV) Job Aid: Adult Flushing & Catheter Care (9664) job aid for additional information regarding guidelines and administration., Routine pembrolizumab (Keytruda) 200 mg in New Bag 12/16/2021 3:45 PM EDT 200 mg 216 mL/hr sodium chloride 0.9% 108 mL infusion 200 mg, Intravenous, ONCE, 1 dose, On Thu12/16/21 at 1600, Administer over 30 Minutes, Flush line with NS after each dose., This agent is restricted to outpatient use. Is this drug being given as an outpatient? Yes sodium chloride 0.9 % (flush) (BD PosiFlush Given 12/16/2021 4:18 PM EDT 20 mLs Normal Saline 0.9) flush 5-20 mL 5-20 mL, Intravenous, EVERY 1 MIN PRN, Starting on Thu12/16/21 at 1444, Until Thu12/16/21 at 2228, Line Care, Flush pertains to all indwelling lines. Flush per protocol found in the job aid using the link provided on this medication record. Refer to Intravenous (IV) Job Aid: Adult Flushing & Catheter Care (8569) job aid for additional information regarding guidelines and administration., Routine documented in this encounter Care Teams Lithographer Helper Relationship Specialty Start Date End Date Arianna Nunez MD PCP - General Family Medicine 10/28/21 [address] [place] [address] documented as of this encounter
--- OUTSIDE RECORDS SUMMARY | 2022-03-28 01:21 | XMS_ITS | Encounter Summary ---
:1945 Author Organization [facility] [place] [address] Care Team Providers Name Role Phone Arianna Nunez MD Primary Care Provider Encounter Details Date Type Department Care Team Description 10/28/2021 Office Visit Hematology/Oncology Lanette Dimas, Prim prema malignant neoplasm of left lower lobe of lung; at [facility] COLLAR STAY FUSER TENDER Secondary malignant neoplasm of liver [address] [place] [address], [place] [facility] [phone] [place], [place] [phone] (Wo rk) Social History Tobacco Use Types Packs/Day Years Used Date Current Every Day Smoker Cigarettes 63 Smokeless Tobacco: Never Used Comments: 1 cigarette daily Sex Assigned at Date Recorded Not on file documented as of this encounter Last Filed Vital Signs Vital Sign Reading Time Taken Comments Blood Pressure 146/76 10/28/2021 9:54 AM EST Pulse 88 10/28/2021 9:54 AM EST Temperature 36.4 ??C (97.5 ??F) 10/28/2021 9:54 AM EST Respiratory Rate 18 10/28/2021 9:54 AM EST Oxygen Saturation 90% 10/28/2021 9:54 AM 90% on 3L o f oxygen EST Via NC. Inhaled Oxygen - - Concentration Weight 72.9 kg (160 lb 12.8 10/28/2021 9:54 AM oz) EST Height 158.5 cm (5' 2.4) 10/28/2021 9:54 AM EST Body Mass Index 29.03 10/28/2021 9:54 AM EST documented in this encounter Progress Notes Lanette Dimas, COLLAR STAY FUSER TENDER - 10/28/2021 10:00 AM EST Images from the original note were not included. Hematology & Medical Oncology [place] [id number] Carly Arguelles is being seen for the [...] line pembrolizumab with overall palliative intent. She is here today for C2. She is transferred her care to [facility] as she has recently moved. She has a home health nurse and aid that visit weekly. She lives alone. Has a lifeline. She fell a couple of times this past week off hertoilet. She fell asleep while sitting there. She said this has happened before and its from the amitriptyline. She is weaning herself off the medication. She has an appointment with her new PCP Dr. Osuna on 10/30/20. Discussed ongoing management. She appears to be tolerating treatment well. Plan: - Labs and toxicities assessed and acceptable for ongoing treatment. - Follow up with PCP as scheduled. - Restage with CT scan locally- she is having her scan tomorrow 10/29/21. - RTC in 3 weeks with CBC,CMP, TSH, FT4 and C3 Pembrolizumab. Carly voiced understanding of the plan and was given an opportunity to ask questions which I answered to the best of my ability. Carly understands she can call the clinic between visits with any questions/concerns or new symptoms. Lanette Dimas MSN, COLLAR STAY FUSER TENDER, AOCNP Medical Oncology HPI/Interval History/Subjective: (10/28/21) Carly Arguelles is a 76 y.o. female patient with a past medical history significant for HTN, COPD (on 2L home O2) stage I breast cancer in ~1999 (s/p b/l mastectomies) , T2 NSCLC s/p RLL lobectomy and adjuvant systemic therapy in 2006 diagnosed with, chronic LBP on morphine (morphine prescribed byher PCP) being treated for metastatic adenocarcinoma of the lung. Carly returns today to continue Pembrolizumab with C2. She appears to be tolerating the therapy well. No fevers, chills or signs of infection. She has a large bump on the left side of her head and her face is ecchymotic. She states she fell asleep while sitting on the toilet and fell off hitting her head. She denies LOC or dizziness. She says this has happened before and its from taking too much amitriptyline. She is weaning herself off the medication now. She did not use her lifeline. She did call her home health nurse. Denies any headaches, double vision or confusion. Has had some skin peeling on her feet but no rashes. No diarrhea. Tends towards constipation. On Miralax PRN. On the chronic morphine for her chronic back pain. Takes Tylenl 1000mg TID. No fevers or infections Got COVID vaccine and booster. On 2 L home O2 continuous. Uses a rolling walker at baseline On patch and still smokes 1 cug ppd Social History/Support Network: Home situation: . in November 2020 which was very difficult.. Moved to [facility] 2021. Lives in [facility] apartments (prior living arrangement that she had with her stepson was deemed unsafe) Lives alone. Working well. Utilizes meals on wheels and RTC services. Uses Medicaid. 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 Also worked in [employer]. Tobacco use: Still smokes 1 cig per day. 50+ pk year hx. Alcohol use: Does not drink. Financial Distress: Limited. Arvind Quigley is her assistant case manager through [employer] Likes to read and do jigsaw puzzles. Likes mysteries Family History: Mother- Dscd 50 due diabetic complications Father- Dscd due to CHF. Doesn't know a lot of details Oncology Overview: # Malignant neoplasm of female breast (HCC-CMS) 1997: Stage 1 Left ductal breast cancer - T1a,N0,M0,G1 - ER+/[place]-. 0/12 node involvement. - Completed 5 years [...] Molecular Data: QNS at time of biopsy ONCBCN ONCOLOGY (AMB) 10/07/2021 Day, Cycle Day 1, Cycle 1 pembrolizumab 25 mg/mL (Keytruda) IV 200 mg Patient Active Problem List Diagnosis Date Noted ??? Secondary malignant neoplasm of liver 10/07/2021 ??? Medication management 10/07/2021 ??? 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 Codeine Anaphylaxis Patient states she is not allergic to codeine 04/09/21 13:49 ??? Penicillins Anaphylaxis ??? Tetracycline Anaphylaxis Medications 10/28/21 1005 Medication Sig Taking? morphine CR (Ms Contin) 30 mg Tablet [...] Tablet Take 30 mg by mouth. Yes losartan (COZAAR) 100 mg Tablet TAKE 1 TABLET BY MOUTH EVERY DAY Yes polyethylene glycoL (Miralax) 17 gram/dose [...] EVERY 8HOURS FOR NAUSEA AND VOMITTING Yes albuteroL (ACCUNEB) 1.25 mg/3 mL Solution [...] THE AREA PRIOR TO PORT ACCESS Yes Noel Enriquez [facility] Spacer USE DIRECTED Yes DULoxetine DR (Cymbalta) 60 mg Capsule, Delayed Release(E.C.) TAKE 1 CAPSULE BY MOUTH ONCE DAILY Yes clotrimazole (LOTRIMIN) 1 % Cream APPLY EXTERNALLY TO THE AFFECTED AREA TWICE DAILY FOR 7 DAYS Yes amLODIPine (Norvasc) 10 mg Tablet Take 5 mg by mouth Daily. Yes Polyvinyl Alcohol-Povidone (Refresh) 1.4-0.6 % Dropperette Apply to eye Daily. Yes vit A/vit C/vit E/zinc/copper (ICAPS AREDS ORAL) Take by mouth Daily. Yes nicotine (Nicoderm CQ) 21 mg/24 hr Patch 24 hr APPLY 1 PATCH TO SKIN ONCE A DAY amitriptyline (Elavil) 100 mg Tablet TAKE 1 TABLET BY MOUTH AT BEDTIME ipratropium-albuteroL (Duoneb) 0.5 mg-3 mg(2.5 mg base)/3 mL Solution for Nebulization 1 INHALATION FOUR TIMES A DAY NEEDED FOR DIFFICULTY BREATHING naloxone HCl (NARCAN NASL) 4 mg by Nasal route as needed. I reviewed the problem list, allergies, medications, past medical history, social history and familyhistory within the EPIC encounter. Pertinent details are noted above. Pertinent positives and negative from the Review of Systems are as summarized above in the HPI. Physical Exam: Wt Readings from Last 3 Encounters: 10/28/21 72.9 kg (160 lb 12.8 oz) 10/07/21 73.3 kg (161 lb 9.6 oz) Temp Readings from Last 3 Encounters: 10/28/21 36.4 ??C (97.5 ??F) (Temporal) 10/07/21 36.8 ??C (98.2 ??F) (Temporal) BP Readings from Last 3 Encounters: 10/28/21 146/76 10/07/21 122/52 Pulse Readings from Last 3 Encounters: 10/28/21 88 10/07/21 81 Body surface area is 1.79 meters squared. Wt Readings from Last 3 Encounters: 10/28/21 72.9 kg (160 lb 12.8 oz) 10/07/21 73.3 kg (161 lb 9.6 oz) KPS Score ECOG Grade Definition 90-100 0 Fully active, able to carry on all pre-disease performance without restriction X 70-80 1 Restricted in physically strenuous activity but ambulatory and able to carry out work of alight or sedentary nature, e.g., light house work, office work 50-60 2 Ambulatory and capable of all selfcare but unable to carry out any work activities; up and about more than 50% of waking hours 30-40 3 Capable of only limited selfcare; confined to bed or chair more than 50% of waking hours 10-20 4 Completely disabled; cannot carry on any selfcare; totally confined to bed or chair Constitutional: Oriented to person, place, and time. No distress. Thin. Uses a rolling walker. Wearing O2 by NC> HENT: [id number] hematoma on left skull. Ecchymosis around eyes and on left side of face. Mouth/Throat: Deferred due to COVID. Wearing a mask Eyes: No scleral icterus. Cardiovascular: Normal rate and regular rhythm. Exam reveals no friction rub. No murmur heard. Pulmonary/Chest: Effort normal. No stridor. No respiratory distress. No wheezes. No rales. Abdominal: Soft. No distension. No tenderness.No rebound. Musculoskeletal: Normal range of motion. No edema. Lymphadenopathy: No cervical adenopathy. Neurological: Alert and oriented to person, place, and time. CN are grossly intact and non-focal. Skin: Skin is warm and dry. No rash noted. No erythema. Psychiatric: Normal mood and affect. Behavior is normal. Thought content normal. Left sided mediport (placed in 2019) Review of Laboratory Data: 10/28/21- WBC-8.15 Hgb/Hct-11.2/38.1 Plt-212 ANC-6.26 Na-141 K+-3.9 [...] neutrophil count 5.42 Review of Imaging Data: As above Review of Pathology Data: documented in this encounter Plan of Treatment Upcoming Encounters Date Type Specialty Care Team Description 04/07/2022 Office Visit Hematology and Oncology Guevara Carlson MD [facility] DR HEMATOLOGY/[place] [address] Orin Summers APRN [facility] DR HEMATOLOGY [place] [address] 04/07/2022 Infusion Hematology and Oncology documented as of this encounter Visit Diagnoses Diagnosis 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 Malignant neoplasm of lower lobe, bronch us, or lung Secondary malignant neoplasm of liver documented in this encounter Care Teams Vending Route Driver Relationship Specialty Start Date End Date Arianna Nunez MD PCP - General Family Medicine 10/28/21 [address] [place] [address] documented as of this encounter
--- OUTSIDE RECORDS SUMMARY | 2022-03-28 01:21 | XMS_ITS | Encounter Summary ---
:1945 Author Organization [facility] [place] [address] Care Team Providers Name Role Phone Arianna Nunez MD Primary Care Provider Reason for Visit Reason Comments Chemotherapy Cycle 3, Day 1 - Pembrolizum ab Treatment/Therapy Plan Authorization (Routine) - Authorized Specialty Diagnoses / Procedures Referred By Contact Refer red To Contact Diagnoses 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 Secondary malignant neoplasm of liver Medication management Yovanny Carlson MD [facility] Hem Onc Office Procedures [address] HEMATOLOGY/[place] [phone] Fax: Referral ID Status Reason Start Date Expiration Date Visits V isits Requested Authorized [id number] Authorized 09/28/2021 09/27/2022 99 99 Encounter Details Date Type Department Care Team Description 11/20/2021 Infusion Hematology Oncology at [facility] malignant neoplasm of liver; [facility] Medication management; [address] [place] [address] Primary malignant neoplasm o f left lower lobe of lung [place], [place] [phone] Social History Tobacco Use Types Packs/Day Years Used Date Current Every Day Smoker Cigarettes 63 Smokeless Tobacco: Never Used Comments: 1 cigarette daily Sex Assigned at Date Recorded Not on file documented as of this encounter Progress Notes Nadia Espinosa, RN - 11/20/2021 2:30 PM EST INFUSION THERAPY ADMINISTRATION NOTES DIAGNOSIS: NSCLC CYCLE #: Cycle 3, Day 1 - Pembrolizumab REASON FOR VISIT: To receive chemotherapy. SUBJECTIVE: Carly offers no complaints. OBJECTIVE: O2, 3L NC continuously. Seen by provider. Ready to treat. LAB DATA: WBC - 7.39, H/H - 10.0/33.1, Plt Ct - 233, ANC - 5.66, Lytes wnl, BUN/Cr - 24/0.8, MG - 2.0, TSH/Free T4 - 3.08/0.92 IV ACCESS: Port accessed off site. Flushes readily with brisk blood return. Pre administration: Chemotherapy orders independently verified for drug name, route, and dosage per patient's height, weight and BSA by Nadia Espinosa, RN and Staff Pharmacist(s). REACTIONS (DESCRIPTION, TIME, INTERVENTION [...] Visit Hematology and Oncology Guevara Carlson MD [facility] DR HEMATOLOGY/[place] [address] Orin Summers APRN [facility] DR [place] [address] 04/07/2022 Infusion Hematology and Oncology documented as [...] Rate Site heparin (pf) (porcine) (100 Given 11/20/2021 3:47 PM EST 500 Uni ts units/mL) flush 5 mL syringe 500 Units 500 Units, Intravenous, ONCE PRN, Starting on Thu11/20/21 at 1452, Until Thu11/20/21 at 1758, Line Care, Refer to Intravenous (IV) Procedure: Accessing Implanted Vascular Access Devices (654) procedure and/or Intravenous (IV) Job Aid: Adult Flushing & Catheter Care (6471) job aid for additional information regarding guidelines and administration., Routine pembrolizumab (Keytruda) 200 mg in New Bag 11/20/2021 3:11 PM EST 200 mg 216 mL/hr sodium chloride 0.9% 108 mL infusion 200 mg, Intravenous, ONCE, 1 dose, On Thu11/20/21 at 1615, Administer over 30 Minutes, Flush line with NS after each dose., This agent is restricted to outpatient use. Is this drug being given as an outpatient? Yes sodium chloride 0.9 % (flush) (BD PosiFlush Given 11/20/2021 3:47 PM EST 20 mLs Normal Saline 0.9) flush 5-20 mL 5-20 mL, Intravenous, EVERY 1 MIN PRN, Starting on Thu11/20/21 at 1452, Until Thu11/20/21 at 1758, Line Care, Flush pertains to all indwelling lines. Flush per protocol found in the job aid using the link provided on this medication record. Refer to Intravenous (IV) Job Aid: Adult Flushing & Catheter Care (1848) job aid for additional information regarding guidelines and administration., Routine documented in this encounter Care Teams Typing Pool Supervisor Relationship Specialty Start Date End Date Arianna Nunez MD PCP - General Family Medicine 10/28/21 [address] [place] [address] documented as of this encounter
--- OUTSIDE RECORDS SUMMARY | 2022-03-28 01:21 | XMS_ITS | Encounter Summary ---
:1945 Author Organization [facility] [place] [address] Care Team Providers Name Role Phone Arianna Nunez MD Primary Care Provider Encounter Details Date Type Department Care Team Description 01/13/2022 Office Visit Hematology/Oncology Yovanny Carlson, Liz imary malignant neoplasm of left lower lobe of lung; at [facility] Secondary malignant neoplasm of liver [address] [place] [phone] HEMATOLOGY/ONCOLOGY [phone] DEPT [place], [place] [address] (Wo rk) Social History Tobacco Use Types Packs/Day Years Used Date Current Every Day Smoker Cigarettes 0.25 63 Smokeless Tobacco: Never Used Comments: 1 cigarette daily Sex Assigned at Date Recorded Not on file documented as of this encounter Last Filed Vital Signs Vital Sign Reading Time Taken Comments Blood Pressure 137/54 01/13/2022 9:56 AM EDT Pulse 84 01/13/2022 9:56 AM EDT Temperature 36.1 ??C (97 ??F) 01/13/2022 9:56 AM EDT Respiratory Rate 20 01/13/2022 9:56 AM EDT Oxygen Saturation 91% 01/13/2022 9:56 AM 91% on 2L o f oxygen EDT via NC. Inhaled Oxygen - - Concentration Weight 76.3 kg (168 lb 3.2 01/13/2022 9:56 AM oz) EDT Height 158 cm (5' 2.21) 01/13/2022 9:56 AM EDT Body Mass Index 30.56 01/13/2022 9:56 AM EDT documented in this encounter Progress Notes Yovanny Carlson MD - 01/13/2022 10:00 AM EDT Images from the original note were not included. Hematology & Medical Oncology [address] [address] Carly Arguelles is being seen for the [...] intent. She has transferred her care to [facility] as she has recently moved. She [...] ongoing treatment. - Continue maintenance pembrolizumab - Obtain images from her CT scan from 01.06.22 - Likely restage in ~February/March time frame # Somnolent episodes- May have been related to C02 retention and seems better on lower O2 (1L) Yovanny Carlson MD, MS 01/13/2022 Medical Oncology & Hematology [facility] HPI/Interval History/Subjective: Last seen 12/16/2021 Seen in the ED 4.11 with left sided chest pain. Had CTA negative for PE and labsEKG. Not etiology identified. Had occurred once per day until 4.11 and then had more episodes that occurred at rest. Sine the ED has had once or twice the pain. Last 5 minutes. Occurs at rest and resolves without intervention. She feels it is manageable. No changing in her breathing of late. On 1 L O2 nasal cannula (is CO2 retainer she notes) Currently smoking 1-2 cigs per day 04/06 back pain (chronic issue at baseline)- on chronic morphine. Less drowsy now and not having episodes of somnolence On prednisone 2,5mg daily. Headaches have improved since the last visit. Uses her nebulizer regularly. No fevers or infections. No rashes No diarrhea. Tends towards constipation. On Miralax PRN. On the chronic morphine for her chronic back pain. Takes Tylenol 1000mg TID. Got COVID vaccine and booster. . Uses a rolling walker at baseline On patch and still smokes 1 cug ppd Social History/Support Network: Home situation: . in November 2020 which was very difficult.. Moved to [facility] 2021. Lives in [facility] [address] (prior living arrangement that she had with her stepson was deemed unsafe) Lives alone. Working well. Utilizes meals on wheels and RTC services. Uses Medicaid. 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 Also worked in [employer]. Tobacco use: Still smokes 1 cig per day. 50+ pk year hx. Alcohol use: Does not drink. Financial Distress: Limited. Arvind Quigley is her behavioral health case manager through [employer] Likes to read and do jigsaw puzzles. [...] ONCBCN ONCOLOGY (AMB) 10/07/2021 10/28/2021 11/20/2021 12/16/2021 Day, Cycle Day 1, Cycle 1 Day 1, Cycle 2 Day 1, Cycle 3 Day 1, Cycle 4 pembrolizumab 25 mg/mL (Keytruda) IV 200 mg [...] ??? Penicillins Anaphylaxis ??? Tetracycline Anaphylaxis Medications 01/13/22 1016 Medication Sig Taking? losartan (Cozaar) 50 mg Tablet Yes fluconazole [...] Tablet Take 30 mg by mouth. Yes polyethylene glycoL (Miralax) 17 gram/dose Powder [...] BY MOUTH EVERY NIGHT AT BEDTIME Yes ondansetron ODT (Zofran-ODT) 8 [...] A DAY NEEDED FOR DIFFICULTY BREATHING Yes [facility] Spacer USE DIRECTED Yes DULoxetine DR (Cymbalta) [...] 1 PATCH TO SKIN ONCE A DAY cetirizine (ZyrTEC) 10 mg Tablet TAKE 1 TABLET BY MOUTH AT BEDTIME amitriptyline (Elavil) 100 mg Tablet TAKE 1 TABLET BY MOUTH AT BEDTIME naloxone HCl (NARCAN NASL) 4 mg by Nasal route as needed. I reviewed the problem list, allergies, medications, past medical history, social history and familyhistory within the EPIC encounter. Pertinent details are noted above. Pertinent positives and negative from the Review of Systems are as summarized above in the HPI. Physical Exam: Wt Readings from Last 3 Encounters: 01/13/22 76.3 kg (168 lb 3.2 oz) 12/16/21 73.2 kg (161 lb 6 oz) 11/20/21 73.2 kg (161 lb 4.8 oz) Temp Readings from Last 3 Encounters: 01/13/22 36.1 ??C (97 ??F) (Temporal) 12/16/21 36.2 ??C (97.1 ??F) (Temporal) 11/20/21 36.6 ??C (97.8 ??F) (Temporal) BP Readings from Last 3 Encounters: 01/13/22 137/54 12/16/21 143/64 11/20/21 135/53 Pulse Readings from Last 3 Encounters: 01/13/22 84 12/16/21 86 11/20/21 81 Body surface area is 1.83 meters squared. Wt Readings from Last 3 Encounters: 01/13/22 76.3 kg (168 lb 3.2 oz) 12/16/21 73.2 kg (161 lb 6 oz) 11/20/21 73.2 kg (161 lb 4.8 oz) KPS Score ECOG Grade Definition 90-100 [...] selfcare; totally confined to bed or chair Patient Vitals for the past 24 hrs: Temp Pulse Resp BP SpO2 01/13/22 0956 36.1 ??C (97 ??F) 84 20 137/54 91 % Physical Exam Constitutional: General: Not in acute distress. Appearance: Normal appearance. Normal weight. Not ill-appearing, toxic- appearing or diaphoretic. HENT: Head: Atraumatic. Eyes: General: No scleral icterus. Right eye: No discharge. Left eye: No discharge. Conjunctiva/sclera: Conjunctivae normal. Pulmonary: Effort: Pulmonary effort is normal. Neurological: General: No focal deficit present. Mental Status: Alert and oriented to person, place, and time. Mental status is at baseline. Psychiatric: Mood and Affect: Mood normal. Behavior: Behavior normal. Thought Content: Thought content normal. Judgment: Judgment normal. Left sided mediport (placed in 2019)- nored or infected in appearance. Review of Laboratory Data: 01.13.22 White blood cells 8.75 hemoglobin 10.6 platelet [...] Imaging Data: 01.06.22 CTA performed in the [facility] ED compared to 10/29/2021 No evidence of pulmonary embolism stable appearance of right pleural collection and areas of nodularity and scarring 10.29.21 Review of Pathology Data: documented in this encounter Plan of Treatment Upcoming Encounters Date Type Specialty Care Team Description 04/07/2022 Office Visit Hematology and Oncology Guevara Carlson MD [facility] DR HEMATOLOGY/[place] [address] Orin Summers APRN [facility] HEMATOLOGY [place] [address] 04/07/2022 Infusion Hematology and Oncology documented as of this encounter Visit Diagnoses Diagnosis 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
--- OUTSIDE RECORDS SUMMARY | 2022-03-28 01:21 | XMS_ITS | Encounter Summary ---
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 Medication management; [address] [place] [address] Primary malignant neoplasm o f left lower lobe of lung [place], [place] [phone] Social History Tobacco Use Types Packs/Day Years Used Date Current Every Day Smoker Cigarettes 63 Smokeless Tobacco: Never Used Comments: 1 cigarette daily Sex Assigned at Date Recorded Not on file documented as of this encounter Progress Notes Cathryn Ma RN - 10/28/2021 10:30 AM EST INFUSION THERAPY ADMINISTRATION NOTES DIAGNOSIS: NSCLC CYCLE #: 2, Day 1 - Pembrolizumab REASON FOR VISIT: To receive chemotherapy. SUBJECTIVE: Carly offers no complaints. OBJECTIVE: O2, 2-3L NC continuously. Seen by provider. Ready to treat. LAB DATA: WDL for today's infusion. IV ACCESS: Port accessed without difficulty. Flushes readily with brisk blood return. Pre [...] Visit Hematology and Oncology Guevara Carlson MD [facility] DR HEMATOLOGY/[place] [address] Orin Summers APRN [facility] [address] HEMATOLOGY [place] [address] 04/07/2022 Infusion Hematology and Oncology documented as [...] Rate Site heparin (pf) (porcine) (100 Given 10/28/2021 11:49 AM EST 500 Un its units/mL) flush 5 mL syringe 500 Units 500 Units, Intravenous, ONCE PRN, Starting on Thu10/28/21 at 1029, Until Thu10/28/21 at 1653, Line Care, Refer to Intravenous (IV) Procedure: Accessing Implanted Vascular Access Devices (934) procedure and/or Intravenous (IV) Job Aid: Adult Flushing & Catheter Care (8569) job aid for additional information regarding guidelines and administration., Routine pembrolizumab (Keytruda) 200 mg in New Bag 10/28/2021 11:17 AM EST 200 mg 216 mL/hr sodium chloride 0.9% 108 mL infusion 200 mg, Intravenous, ONCE, 1 dose, On Thu10/28/21 at 1145, Administer over 30 Minutes, Flush line with NS after each dose., This agent is restricted to outpatient use. Is this drug being given as an outpatient? Yes sodium chloride 0.9 % (flush) (BD PosiFlush Given 09/30 11:49 AM EST 20 mLs Normal Saline 0.9) flush 5-20 mL 5-20 mL, Intravenous, EVERY 1 MIN PRN, Starting on Thu10/28/21 at 1029, Until Thu10/28/21 at 1653, Line Care, Flush pertains to all indwelling lines. Flush per protocol found in the job aid using the link provided on this medication record. Refer to Intravenous (IV) Job Aid: Adult Flushing & Catheter Care (4966) job aid for additional information regarding guidelines and administration., Routine documented in this encounter Care Teams Chemical Processing Equipment Repairer Relationship Specialty Start Date End Date Arianna Nunez MD PCP - General Family Medicine 10/28/21 [address] [place] [address] documented as of this encounter
--- OUTSIDE RECORDS SUMMARY | 2022-03-28 01:21 | XMS_ITS | Encounter Summary ---
:1945 Author Organization [facility] [place] [address] Care Team Providers Name Role Phone Arianna Nunez MD Primary Care Provider Encounter Details Date Type Department Care Team Description 10/28/2021 Notes Only Hematology/Oncology at Nel Cabrera MSW [facility] OFFICE OF CARE [address] [place] [phone] Social History Tobacco Use Types Packs/Day Years Used Date Current Every Day Smoker Cigarettes 63 Smokeless Tobacco: Never Used Comments: 1 cigarette daily Sex Assigned at Date Recorded Not on file documented as of this encounter Progress Notes Nel Cabrera MSW - 10/28/2021 11:44 AM EST Follow up with pt during her infusion visit. Informed by Amy Ma RN that pt took a fall at home - face is bruised. Pt indicated she fell asleep and toppled over. Has a lifeline but did not needto use it. Pt indicated she is managing day to day at home. She has a monthly RN visit from the A.She has a CM and a HM(2 hours a week) from the [facility] program. People call her daily to check in. Her daughter Bryanna is her primary support. Pt is using RCT for rides and she schedules her own trips. Pt did not identify any new needs today. Offered support. Reminded pt of ROTARY ENVELOPE MACHINE OPERATOR availability and contact information. Will follow for support and resources. Brief assessment Supportive Counseling documented in this encounter Plan of Treatment Upcoming Encounters Date Type Specialty Care Team Description 04/07/2022 Office Visit Hematology and Oncology Guevara Carlson MD [facility] DR HEMATOLOGY/[place] [address] Orin Summers APRN [facility] [place] [address] 04/07/2022 Infusion Hematology and Oncology documented as of this encounter Visit Diagnoses Not on filedocumented in this encounter Care Teams Director Cost Relationship Specialty Start Date End Date Arianna Nunez MD PCP - General Family Medicine 10/28/21 [address]i [address] [place] [address] documented as of this encounter
--- OUTSIDE RECORDS SUMMARY | 2022-03-28 01:21 | XMS_ITS | Clinical Summary ---
:1945 Author Organization [facility] [place] [address] Care Team Providers Name Role Phone Arianna Nunez MD Primary Care Provider Allergies Active Allergy Reactions Severity Noted Date Comments Codeine Anaphylaxis High 04/05/2019 Patient states she is not allergic to codeine 1 13:49 Penicillins Anaphylaxis High 11/23/2013 Tetracycline Anaphylaxis High 04/05/2019 Medications Medication Sig Dispensed Refills Start Date End Date Status morphine CR (Ms Take 30 mg by 0 Active Contin) 30 mg Tablet mouth Every 12 Sustained Release hours. morphine CR (Ms TAKE 1 TABLET BY 0 10/01/2021 Active Contin) 15 mg Tablet MOUTH EVERY Sustained Release MORNING famotidine (Pepcid) 20 TAKE 1 TABLET BY 0 10/02/2021 Active mg Tablet MOUTH TWICE DAILY FOR GERD Pulmicort Flexhaler 90 INHALE 2 PUFFS BY 0 1 Active mcg/actuation Aerosol MOUTH TWO TIMES A Powdr Breath Activated DAY predniSONE (Deltasone) TAKE 1 TABLET BY 0 08/20/2021 Active 2.5 mg Tablet MOUTH DAILY torsemide (Demadex) 20 Take 30 mg by 0 01/06/2020 Active mg Tablet mouth. nicotine (Nicoderm CQ) APPLY 1 PATCH TO 0 07/09/2021 Active 21 mg/24 hr Patch 24 SKIN ONCE A DAY hr polyethylene glycoL MIX 1 CAPFUL WITH 0 12/19/2020 Active (Miralax) 17 gram/dose 8 OUNCES OF LIQUID Powder AND TAKE BY MOUTH ONCE DAILY OR NEEDED acetaminophen Take 325 mg by 0 A ctive (Tylenol) 500 mg mouth Every 6 Tablet hours as needed. omeprazole (PriLOSEC) TAKE 1 CAPSULE BY 0 08/16/2021 Active 40 mg Capsule, Delayed MOUTH TWICE DAILY Release(E.C.) FOR 2 TO 4 WEEKS mupirocin (Bactroban) APPLY TO AFFECTED 0 10/22/2020 Active 2 % Ointment AREA TWICE DAILY FOR ONE WEEK OR UNTIL RESOLVED atorvastatin (Lipitor) TAKE 1 TABLET BY 0 08/16/2021 Active 20 mg Tablet MOUTH EVERY NIGHT AT BEDTIME cetirizine (ZyrTEC) 10 TAKE 1 TABLET BY 0 08/16/2021 Active mg Tablet MOUTH AT BEDTIME ondansetron ODT TAKE 1 TABLET BY 0 04/26/2021 Active (Zofran-ODT) 8 mg MOUTH SUBLINGUALLY Tablet, Rapid Dissolve EVERY 8 HOURS FOR NAUSEA AND VOMITTING amitriptyline (Elavil) TAKE 1 TABLET BY 0 2021 Active 100 mg Tablet MOUTH AT BEDTIME albuteroL (ACCUNEB) INHALE BY MOUTH 0 05/06/2021 Active 1.25 mg/3 mL Solution 2.5 MG THREE TIMES for Nebulization A DAY albuteroL 90 2 puff(s) inhaled 0 Active mcg/actuation HFA 4 times a day Aerosol Inhaler spironolactone TAKE 1 TABLET BY 0 08/16/2021 Active (Aldactone) 25 mg MOUTH DAILY Tablet Spiriva with INHALE THE 0 08/09/2021 Activ e HandiHaler 18 mcg CONTENTS OF 1 Capsule, w/Inhalation CAPSULE VIA Device INHALATION DEVICE EVERY DAY DIRECTED prochlorperazine 1 tab(s) orally 3 0 Active (Compazine) 5 mg times a day Tablet lidocaine-prilocaine APPLY TO THE AREA 0 07/18/2021 Active (EMLA) Cream PRIOR TO PORT ACCESS ipratropium-albuteroL 1 INHALATION FOUR 0 08/08/2021 Active (Duoneb) 0.5 mg-3 TIMES A DAY mg(2.5 mg base)/3 mL NEEDED FOR Solution for DIFFICULTY Nebulization BREATHING [facility] Zoe USE DIRECTED 0 05/03/2021 Active [facility] Spacer DULoxetine DR TAKE 1 CAPSULE BY 0 08/16/2021 Active (Cymbalta) 60 mg MOUTH ONCE DAILY Capsule, Delayed Release(E.C.) clotrimazole APPLY EXTERNALLY 0 10/02/2021 Active (LOTRIMIN) 1 % Cream TO THE AFFECTED AREA TWICE DAILY FOR 7 DAYS amLODIPine (Norvasc) Take 5 mg by mouth 0 11/27/2019 Active 10 mg Tablet Daily. naloxone HCl (NARCAN 4 mg by Nasal 0 Active NASL) route as needed. Polyvinyl Apply to eye 0 Active Alcohol-Povidone Daily. (Refresh) 1.4-0.6 % Dropperette vit A/vit C/vit Take by mouth 0 Active E/zinc/copper (ICAPS Daily. AREDS ORAL) losartan (Cozaar) 50 0 12/13/2021 Active mg Tablet fluconazole (Diflucan) 0 12/04/2021 Active 150 mg Tablet magnesium oxide Take 1 tablet by 30 tablet 12 02/04/2022 Active (Mag-Ox) 400 mg (241.3 mouth daily. 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; Oncology Orin Barber, GRINDING WHEEL FACER 02/04/2022 Refill Hematology and Yvoanny Carlson, Oncology 02/03/2022 Infusion Hematology and Secondary mal ignant neoplasm of liver; Oncology Medication garima gement; Primary maligna nt neoplasm of left lower lobe of lung 02/03/2022 Office Visit Hematology and Yovanny Carlson, 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; Oncology Medication management Lanette Dimas, GRINDING WHEEL FACER 01/13/2022 Infusion Hematology and Secondary mal ignant neoplasm of liver; Oncology Medication garima gement; Primary maligna nt neoplasm of left lower lobe of lung 01/13/2022 Office Visit Hematology and Yovanny Carlson, 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; Oncology MD Secondary malig nant neoplasm of liver 01/13/2022 Notes Only Hematology and Nel Cabrera, Oncology PRESS CLEANER 01/06/2022 Ancillary Radiology Yovanny Carlson, Procedure MD 01/06/2022 Telephone Hematology and Amanda Morris, cinder pit crane operator from Last 3 Months Social History Tobacco Use Types Packs/Day Years [...] Mass Index 30.77 03/03/2022 1:00 PM EDT Plan of Treatment Upcoming Encounters Date Type Specialty Care Team Description 04/07/2022 Office Visit Hematology and Oncology Guevara Carlson MD [facility] DR HEMATOLOGY/[place] [address] Orin Summers APRN [facility] [place] [address] 04/07/2022 Infusion Hematology and Oncology Health Maintenance Due Date Last Done Comments Covid-19 Vaccine (#1) 1950 Pneumoccocal Vaccine: 65+ (1 - PCV) 1952 Hepatitis C Screening 1964 Tdap adult 1965 Tetanus vaccine 1965 Colonoscopy 1991 Zoster vaccine (1 of 2) 1996 Advance Directive 2001 Bone Density Scan 2011 Influenza (Flu) vaccine (1 of 1 - Influenza standard 05/29/2021 series) Procedures Procedure Name Priority Date/Time Associated Diagnosis Comme nts LAB SCAN 03/03/2022 12:00 AM Results for this EDT procedure are i n the results section. LAB SCAN 03/03/2022 12:00 AM Results for this EDT procedure are i n the results section. LAB SCAN 02/03/2022 12:00 AM Results for this EDT procedure are i n the results section. LAB SCAN 01/13/2022 12:00 AM Results for this EDT procedure are i n the results section. LAB SCAN 01/13/2022 12:00 AM Results for this EDT procedure are i n the results section. FILM LIBRARY Routine 01/06/2022 12:00 AM Results for this STORAGE ONLY CT EDT procedure ar tye in CHEST the results section. from Last 3 Months Results SCAN DOC: LAB (03/03/2022 12:00 AM EDT)Only the most recent of5 resultswithin the time period is included. Narrative This result has an attachment that is no t available. Unknown MEDIA MGR SCAN EXT ORDR/RSLT Film Library- Storage Only CT Chest (01/06/2022 12:00 AM EDT) Specimen (Source) Anatomical Location Collection Method / Collectio n Time Received Time / Laterality Volume Narrative ESME - 01/13/2022 1:20 PM EDT This exam is auto-finalizing. It's purpo se is for storage only. Yovanny Carlson MD IMG FILM LIBRARY ORDERABLES Performing Organization Address City/State/ZIP Code Phon e Number [place], [place] from Last 3 Months Insurance Payer Benefit Plan / Subscriber ID Effective Dates Phone Addre ss Type Group MEDICARE MEDICARE PART [id number] 2001-Prese [phone] [id number] [place] [address] [place] [id number] 2021-Presen [phone] [address] [place] [address] [place] [id number] 2021-Presen [phone] [address] [place] [address] Care Teams Circus Artist Relationship Specialty Start Date End Date Arianna Nunez MD PCP - General Family Medicine 10/28/21 [address] [place] [address]
--- OUTSIDE RECORDS SUMMARY | 2022-03-28 01:21 | XMS_ITS | Encounter Summary ---
:1945 Author Organization [facility] [place] [address] Care Team Providers Name Role Phone Arianna Nunez MD Primary Care Provider Reason for Visit Reason Comments Chemotherapy Cycle 7, Day 1 - Pembrolizum ab Treatment/Therapy Plan Authorization (Routine) - Authorized Specialty Diagnoses / Procedures Referred By Contact Refer red To Contact Diagnoses 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 Secondary malignant neoplasm of liver Medication management Yovanny Carlson MD [facility] Hem Onc Office Procedures [address] HEMATOLOGY/[place] [phone] Fax: Referral ID Status Reason Start Date Expiration Date Visits V isits Requested Authorized [id number] Authorized 09/28/2021 09/27/2022 99 99 Encounter Details Date Type Department Care Team Description 03/03/2022 Infusion Hematology Oncology at [facility] malignant neoplasm of liver; [facility] Medication management; [address] [place] [address] Primary malignant neoplasm o f left lower lobe of lung [place], [place] [phone] Social History Tobacco Use Types Packs/Day Years Used Date Current Every Day Smoker Cigarettes 0.25 63 Smokeless Tobacco: Never Used Comments: 1 cigarette daily Sex Assigned at Date Recorded Not on file documented as of this encounter Progress Notes Nadia Espinosa, RN - 03/03/2022 1:30 PM EDT INFUSION THERAPY ADMINISTRATION NOTES DIAGNOSIS: NSCLC CYCLE #: Cycle 7, Day 1 - Pembrolizumab REASON FOR VISIT: To receive chemotherapy. SUBJECTIVE: Carly offers no complaints. She is somnolent and falls asleep easily. OBJECTIVE: O2, 2L NC continuously. Seen by provider. Ready to treat. She is to receive an albuterol nebulizer treatment to see if it will decrease wheezing, improve aeration and mentation. LAB DATA: WBC - 9.28, H/H - 11.1/37.5, Plt Ct - 243, ANC - 7.65, Lytes wnl, BUN/Cr - 30/1.1, MG - 2.0, TSH/Free T4 - 1.05/1.09 IV ACCESS: Port accessed off site. Flushes readily with brisk blood return. Pre administration: Chemotherapy orders independently verified for drug name, route, and dosage per patient's height, weight and BSA by Nadia Espinosa RN and Staff Pharmacist(s). REACTIONS (DESCRIPTION, TIME, INTERVENTION AND EFFECTIVENESS) none ASSESSMENT: Carly was awake, alert and tolerated treatment well. She dozed most of the time during the infusion. Post nebulizer her SA)2 was 74% and pulse 73. Lungs demonstrated exp wheezes on left and rhonchion the right. She had a congested non-productive cough. Provider updated with response. Port flushedwith 20 cc's of NS and 500 units of heparin and de-accessed. PLAN: Return to clinic in three weeks. documented in this encounter Plan of Treatment Upcoming Encounters Date Type Specialty Care Team Description 04/07/2022 Office Visit Hematology and Oncology Guevara Carlson MD [facility] DR HEMATOLOGY/[place] [address] Orin Summers APRN [facility] [address] [place] [address] 04/07/2022 Infusion Hematology and Oncology documented as [...] MAR Action Action Date Dose Rate Site albuteroL (Proventil) nebulizer Given 03/03/2022 2:27 PM EDT 2.5 mg solution 2.5 mg 2.5 mg, Nebulization, ONCE, 1 dose, On Thu03/03/22 at 1400, Please give once today while in infusion., Routine heparin (pf) (porcine) (100 units/mL) Given 03/03/2022 3:00 PM E DT 500 Units flush 5 mL syringe 500 Units 500 Units, Intravenous, ONCE PRN, Starting on Thu03/03/22 at 1341, Until Thu03/03/22 at 1819, Line Care, Refer to Intravenous (IV) Procedure: Accessing Implanted Vascular Access Devices (654) procedure and/or Intravenous (IV) Job Aid: Adult Flushing & Catheter Care (9550) job aid for additional information regarding guidelines and administration., Routine pembrolizumab (Keytruda) 200 mg in New Bag 03/03/2022 2:26 PM EDT 200 mg 216 mL/hr sodium chloride 0.9% 108 mL infusion 200 mg, Intravenous, ONCE, 1 dose, On Thu03/03/22 at 1500, Administer over 30 Minutes, Flush line with NS after each dose., This agent is restricted to outpatient use. Is this drug being given as an outpatient? Yes sodium chloride 0.9 % (flush) (BD PosiFlush Given 03/03/2022 2:59 PM EDT 20 mLs Normal Saline 0.9) flush 5-20 mL 5-20 mL, Intravenous, EVERY 1 MIN PRN, Starting on Thu03/03/22 at 1341, Until Thu03/03/22 at 1819, Line Care, Flush pertains to all indwelling lines. Flush per protocol found in the job aid using the link provided on this medication record. Refer to Intravenous (IV) Job Aid: Adult Flushing & Catheter Care (3189) job aid for additional information regarding guidelines and administration., Routine documented in this encounter Care Teams Looper Operator Relationship Specialty Start Date End Date Arianna Nunez MD PCP - General Family Medicine 10/28/21 [address] [place] [address] documented as of this encounter
--- OUTSIDE RECORDS SUMMARY | 2022-03-28 01:21 | XMS_ITS | Encounter Summary ---
:1945 Author Organization [facility] [place] [address] Care Team Providers Name Role Phone Arianna Nunez MD Primary Care Provider Encounter Details Date Type Department Care Team Description 10/29/2021 Ancillary Procedure Radiology Library at Arianna Nunez MD [address] [phone] (Wo rk) Social History Tobacco Use Types Packs/Day Years Used Date Current Every Day Smoker Cigarettes 63 Smokeless Tobacco: Never Used Comments: 1 cigarette daily Sex Assigned at Date Recorded Not on file documented as of this encounter Plan of Treatment Upcoming Encounters Date Type Specialty Care Team Description 04/07/2022 Office Visit Hematology and Oncology Guevara Carlson MD [facility] [address] HEMATOLOGY/[place] [address] Orin Summers APRN [facility] [place] [address] 04/07/2022 Infusion Hematology and Oncology documented as of this encounter Procedures Procedure Name Priority Date/Time Associated Diagnosis Comme nts FILM LIBRARY Routine 10/29/2021 12:00 AM Results for this STORAGE ONLY CT EST procedure ar e in CHEST ABDOMEN the results PELVIS section. documented in this encounter Results Film Library- Storage Only CT Chest Abdomen Pelvis (10/29/2021 12:00 AM EST) Specimen (Source) Anatomical Location Collection Method / Collectio n Time Received Time / Laterality Volume Narrative [facility] - 11/01/2021 9:00 AM EST This exam is auto-finalizing. It's purpo se is for storage only. Arianna Nunez MD IMG FILM LIBRARY ORDERABLES Performing Organization Address City/State/ZIP Code Phon e Number [place], [place] documented in this encounter Visit Diagnoses Not on filedocumented in this encounter Care Teams Short Filler Bunch Machine Operator Relationship Specialty Start Date End Date Arianna Nunez MD PCP - General Family Medicine 10/28/21 [address] [place] [address] documented as of this encounter
--- OUTSIDE RECORDS SUMMARY | 2022-03-28 01:21 | XMS_ITS | Encounter Summary ---
:1945 Author Organization [facility] [place] [address] Care Team Providers Name Role Phone Arianna Nunez MD Primary Care Provider Encounter Details Date Type Department Care Team Description 12/16/2021 Office Visit Hematology/Oncology Sheri Carlson MD [facility] DR HEMATOLOGY/[place] [address] 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[facility] [address] [place] [address] DR MEDICAL ONCOLOGY [place], [place] [id number] Secondary malignant neoplasm of liver [address] [place] [phone] Social History Tobacco Use Types Packs/Day Years Used Date Current Every Day Smoker Cigarettes 0.25 63 Smokeless Tobacco: Never Used Comments: 1 cigarette daily Sex Assigned at Date Recorded Not on file documented as of this encounter Last Filed Vital Signs Vital Sign Reading Time Taken Comments Blood Pressure 143/64 12/16/2021 2:21 PM EDT Pulse 86 12/16/2021 2:21 PM EDT Temperature 36.2 ??C (97.1 ??F) 12/16/2021 2:21 PM EDT Respiratory Rate 17 12/16/2021 2:21 PM EDT Oxygen Saturation 94% 12/16/2021 2:21 PM EDT Inhaled Oxygen Concentration - - Weight 73.2 kg (161 lb 6 oz) 12/16/2021 2:21 PM EDT Height 158 cm (5' 2.21) 12/16/2021 2:21 PM EDT Body Mass Index 29.32 12/16/2021 2:21 PM EDT documented in this encounter Progress Notes Lanette Dimas, EDM OPERATOR - 12/16/2021 2:30 PM EDT Images from the original note were not included. Hematology & Medical Oncology [address] [address] Carly Arguelles is being seen for the [...] intent. She has transferred her care to [facility] as she has recently moved. She has a home health nurse and aidthat visit weekly. She lives alone. Has a lifeline. She states she hasn't fallen recently but still having difficulty falling asleep. Dr. Osuna started her low dose prednisone and took her off some medications and she is doing better. # Metastatic adenocarcinoma of the lung - CT scan from 10.29.21 reviewed. No progression. T8 compression fracture noted. With her recent falls seems less likely to be a pathologic fracture. MRI would be difficult for her so would follow for now - Labs and toxicities assessed and acceptable for ongoing treatment. - Continue maintenance pembrolizumab # Somnolent episodes- seem to occur only when she is sitting and seem likely she is falling asleep. Denies any recent falls. Would be primarily concerned about medications given that she is on the chronic opioids. Recently stopped the amitriptyline. Would not be likely related to her cancer or her treatment - She is following closely with Dr. Nunez to adjust medications. Follow up: Follow up visit in 3 weeks with CBC,CMP, TSH,FT4 and C5 Pembrolizumab. Carly voiced understanding of the plan and was given an opportunity to ask questions which I answered to the best of my ability.Carly understands she can call the clinic between visits with anyquestions/concerns or new symptoms. Lanette Dimas MSN, EDM OPERATOR, AOCNP Medical Oncology HPI/Interval History/Subjective: Last seen 11/20/21 Carly Arguelles is a 76 y.o. female patient with a past medical history significant for HTN, COPD (on 2L home O2) stage I breast cancer in ~1999 (s/p b/l mastectomies) , T2 NSCLC s/p RLL lobectomy and adjuvant systemic therapy in 2006 diagnosed with chronic LBP on morphine (morphine prescribed by her PCP) being treated for metastatic adenocarcinoma of the lung. Currently smoking 1-2 cigs per day 04/06 back pain (chronic issue at baseline)- on chronic morphine Off the amitriptyline. Still feels frequently drowsy. Has fallen asleep on the toilet. Feels tired right now Recently put on dexamethasone low dose and her somnolence has improved. Having headaches now that she is of the amitriptyline. These are different than her prior migraine medication. Sharp pain in her head. Comes and goes. Lasts for a minute and then goes away. Uses her nebulizer regularly. Using her O2 2 L as is her baseline. Uses 3.5 L at night. No fevers or infections. No rashes No diarrhea. Tends towards constipation. On Miralax PRN. On the chronic morphine for her chronic back pain. Takes Tyleno 1000mg TID. Got COVID vaccine and booster. . Uses a rolling walker at baseline On patch and still smokes 1 cug ppd Social History/Support Network: Home situation: . in November 2020 which was very difficult.. Moved to [facility] 2021. Lives in [facility] apartments (prior living arrangement that she had with her stepson was deemed unsafe) Lives alone. Working well. Utilizes meals on wheels and RTC services. Uses Medicaid. 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 Also worked in [place]. Tobacco use: Still smokes 1 cig per day. 50+ pk year hx. Alcohol use: Does not drink. Financial Distress: Limited. Arvind Quigley is her caser shoe parts through [employer] Likes to read and do jigsaw puzzles. Likes mysteries Family History: Mother- Dscd 50 due diabetic complications Father- Dscd due to CHF. Doesn't know a lot of details Oncology Overview: # Malignant neoplasm of female breast ([facility]) 1997: Stage 1 Left ductal breast cancer - T1a,N0,M0,G1 - ER+/HI-. 0/12 node involvement. - Completed 5 years [...] time of biopsy ONCBCN ONCOLOGY (AMB) 10/07/2021 10/28/2021 11/20/2021 Day, Cycle Day 1, Cycle 1 Day 1, Cycle 2 Day 1, Cycle 3 pembrolizumab 25 mg/mL (Keytruda) IV 200 mg 200 mg 200 mg Patient Active Problem List Diagnosis Date Noted ??? Secondary malignant neoplasm of liver 10/07/2021 ??? Medication management 10/07/2021 ??? 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 Codeine Anaphylaxis Patient states she is not allergic to codeine 04/09/21 13:49 ??? Penicillins Anaphylaxis ??? Tetracycline Anaphylaxis Medications 11/20/21 1423 Medication Sig Taking? morphine CR (Ms Contin) [...] 1 PATCH TO SKIN ONCE A DAY losartan (COZAAR) 100 mg Tablet 50 mg. polyethylene glycoL (Miralax) 17 gram/dose Powder MIX [...] TIMES A DAY NEEDED FOR DIFFICULTY BREATHING [facility] Spacer USE DIRECTED DULoxetine DR (Cymbalta) 60 [...] Exam: Wt Readings from Last 3 Encounters: 11/20/21 73.2 kg (161 lb 4.8 oz) 10/28/21 72.9 kg (160 lb 12.8 oz) 10/07/21 73.3 kg (161 lb 9.6 oz) Temp Readings from Last 3 Encounters: 11/20/21 36.6 ??C (97.8 ??F) (Temporal) 10/28/21 36.4 ??C (97.5 ??F) (Temporal) 10/07/21 36.8 ??C (98.2 ??F) (Temporal) BP Readings from Last 3 Encounters: 11/20/21 135/53 10/28/21 146/76 10/07/21 122/52 Pulse Readings from Last 3 Encounters: 11/20/21 81 10/28/21 88 10/07/21 81 There is no height or weight on file to calculate BSA. Wt Readings from Last 3 Encounters: 11/20/21 73.2 kg (161 lb 4.8 oz) 10/28/21 72.9 kg (160 lb 12.8 oz) [...] selfcare; totally confined to bed or chair No data found. Physical Exam Constitutional: General: Not in acute [...] Judgment normal. Left sided mediport (placed in 2019) Review of Laboratory Data: 12/07/21- WBC-9.02 Hgb/Hct-10.2/33.7 Plt-246 ANC-7.55 Na-137 K+-4.2 [...] neutrophil count 5.42 Review of Imaging Data: 2.10.19 (I reviewed the imaging personally which shows no progression of disease.) Review of Pathology Data: documented in this encounter Plan of Treatment Upcoming Encounters Date Type Specialty Care Team Description 04/07/2022 Office Visit Hematology and Oncology Guevara Carlson MD [facility] DR HEMATOLOGY/[place] [address] Orin Summers APRN [facility] DR HEMATOLOGY [place] [address] 04/07/2022 Infusion Hematology and Oncology documented as of this encounter Visit Diagnoses Diagnosis 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
--- OUTSIDE RECORDS SUMMARY | 2022-03-28 01:21 | XMS_ITS | Encounter Summary ---
:1945 Author Organization [facility] [place] [address] Care Team Providers Name Role Phone Arianna Nunez MD Primary Care Provider Encounter Details Date Type Department Care Team Description 01/06/2022 Telephone Hematology Oncology at Amanda Morris RN [address] [phone] Social History Tobacco Use Types Packs/Day Years Used Date Current Every Day Smoker Cigarettes 0.25 63 Smokeless Tobacco: Never Used Comments: 1 cigarette daily Sex Assigned at Date Recorded Not on file documented as of this encounter Miscellaneous Notes Telephone Encounter - Amanda Morris RN - 01/10/2022 9:43 AM EDT ----- Message from Lisa Braxton RN sent at 01/06/2022 12:10 PM EDT ----- Regarding: FW: Headed to the ED ----- Message ----- From: Gina Smith Sent: 01/06/2022 10:02 AM EDT To: St Hem Onc Nurse Subject: Headed to the ED Home Health called to let us know they are sending Carly to the ED for a cardiac evaluation. Thanks Davina~ documented in this encounter Plan of Treatment Upcoming Encounters Date Type Specialty Care Team Description 04/07/2022 Office Visit Hematology and Oncology Guevara Carlson MD [facility] HEMATOLOGY/[place] [address] Orin Summers APRN [facility] HEMATOLOGY [place] [address] 04/07/2022 Infusion Hematology and Oncology documented as of this encounter Visit Diagnoses Not on filedocumented in this encounter Care Teams Senior Controls Analyst Relationship Specialty Start Date End Date Arianna Nunez MD PCP - General Family Medicine 10/28/[address] [facility] [place] [address] documented as of this encounter
--- OUTSIDE RECORDS SUMMARY | 2022-03-28 01:21 | XMS_ITS | Encounter Summary ---
:1945 Author Organization [facility] [place] [address] Care Team Providers Name Role Phone Arianna Nunez MD Primary Care Provider Encounter Details Date Type Department Care Team Description 01/13/2022 Notes Only Hematology/Oncology at Nel Cabrera MSW [facility] OFFICE OF CARE [address] [place] [phone] Social History Tobacco Use Types Packs/Day Years Used Date Current Every Day Smoker Cigarettes 0.25 63 Smokeless Tobacco: Never Used Comments: 1 cigarette daily Sex Assigned at Date Recorded Not on file documented as of this encounter Progress Notes Nel Cabrera MSW - 01/13/2022 11:19 AM EDT Follow up with pt during her infusion visit today. Pt indicated she is managing fairly well day to day at home. She has VNA services and the nurse visits weekly. She has a HM once a week for 2 hours tohelp with chores. She has [employer]. Pt gets MOW's - 7 meals a week which she finds helpful. She continues to use RCT for rides and schedules her own trips. Pt did not identify any new needs today. Offered support. Reminded pt of [employer] availability and contact information. Will follow as indicated. Brief assessment Supportive Counseling documented in this encounter Plan of Treatment Upcoming Encounters Date Type Specialty Care Team Description 04/07/2022 Office Visit Hematology and Oncology Guevara Carlson MD [facility] HEMATOLOGY/[place] [address] Orin Summers APRN [facility] [place] [address] 04/07/2022 Infusion Hematology and Oncology documented as of this encounter Visit Diagnoses Not on filedocumented in this encounter Care Teams Facilities Coordinator Relationship Specialty Start Date End Date Arianna Nunez MD PCP - General Family Medicine 10/28/21 [address] [place] [address] documented as of this encounter
--- OUTSIDE RECORDS SUMMARY | 2022-03-28 01:21 | XMS_ITS | Encounter Summary ---
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 malignant neoplasm of liver Medication management Yovanny Carlson MD [facility] Hem Onc Office Procedures [address] HEMATOLOGY/[place] [phone] Fax: Referral ID Status Reason Start Date Expiration Date Visits V isits Requested Authorized [id number] Authorized 09/28/2021 09/27/2022 99 99 Encounter Details Date Type Department Care Team Description 02/03/2022 Infusion Hematology Oncology at [facility] malignant neoplasm of liver; [facility] Medication management; [address] [place] [address] Primary malignant neoplasm o f left lower lobe of lung [place], [place] [phone] Social History Tobacco Use Types Packs/Day Years Used Date Current Every Day Smoker Cigarettes 0.25 63 Smokeless Tobacco: Never Used Comments: 1 cigarette daily Sex Assigned at Date Recorded Not on file documented as of this encounter Progress Notes Nadia Espinosa, RN - 02/03/2022 1:30 PM EDT INFUSION THERAPY ADMINISTRATION NOTES DIAGNOSIS: NSCLC CYCLE #: Cycle 6, Day 1 - Pembrolizumab REASON FOR VISIT: To receive chemotherapy. SUBJECTIVE: Carly offers no complaints. OBJECTIVE: O2, 2L NC continuously. Seen by provider. Ready to treat. LAB DATA: WBC - 7.08, H/H - 10.8/36.1, Plt Ct - 230, ANC - 5.51, Lytes wnl, BUN/Cr - 23/1.0, MG - 1.7, TSH/Free T4 - 1.42/1.01 IV ACCESS: Port accessed off site. Flushes readily with brisk blood return. Pre administration: Chemotherapy orders independently verified for drug name, route, and dosage per patient's height, weight and BSA by Nadia Espinosa, DOMENIC and Staff Pharmacist(s). REACTIONS (DESCRIPTION, TIME, [...] Visit Hematology and Oncology Guevara Carlson MD [facility] DR HEMATOLOGY/[place] [address] Orin Summers APRN [facility] DR [place] [address] 04/07/2022 Infusion Hematology and Oncology documented as [...] Rate Site heparin (pf) (porcine) (100 Given 02/03/2022 2:51 PM EDT 500 Uni ts units/mL) flush 5 mL syringe 500 Units 500 Units, Intravenous, ONCE PRN, Starting on Thu02/03/22 at 1340, Until Thu02/03/22 at 1822, Line Care, Refer to Intravenous (IV) Procedure: Accessing Implanted Vascular Access Devices (654) procedure and/or Intravenous (IV) Job Aid: Adult Flushing & Catheter Care (3207) job aid for additional information regarding guidelines and administration., Routine pembrolizumab (Keytruda) 200 mg in New Bag 02/03/2022 2:16 PM EDT 200 mg 216 mL/hr sodium chloride 0.9% 108 mL infusion 200 mg, Intravenous, ONCE, 1 dose, On Thu02/03/22 at 1500, Administer over 30 Minutes, Flush line with NS after each dose., This agent is restricted to outpatient use. Is this drug being given as an outpatient? Yes sodium chloride 0.9 % (flush) (BD PosiFlush Given 02/03/2022 2:51 PM EDT 20 mLs Normal Saline 0.9) flush 5-20 mL 5-20 mL, Intravenous, EVERY 1 MIN PRN, Starting on Thu02/03/22 at 1340, Until Thu02/03/22 at 1822, Line Care, Flush pertains to all indwelling lines. Flush per protocol found in the job aid using the link provided on this medication record. Refer to Intravenous (IV) Job Aid: Adult Flushing & Catheter Care (0462) job aid for additional information regarding guidelines and administration., Routine documented in this encounter Care Teams Mental Health Technician Relationship Specialty Start Date End Date Arianna Nunez MD PCP - General Family Medicine 10/28/21 [address] [place] [address] documented as of this encounter
--- OUTSIDE RECORDS SUMMARY | 2022-03-28 01:21 | XMS_ITS | Encounter Summary ---
:1945 Author Organization [facility] [place] [address] Care Team Providers Name Role Phone Arianna Nunez MD Primary Care Provider Encounter Details Date Type Department Care Team Description 02/04/2022 [facility] HEMATOLOGY/ONCOLOGY DEPT [place], [place] [address] [place] [address] [phone] (Wo rk) Social History Tobacco Use Types Packs/Day Years Used Date Current Every Day Smoker Cigarettes 0.25 63 Smokeless Tobacco: Never Used Comments: 1 cigarette daily Sex Assigned at Date Recorded Not on file documented as of this encounter Plan of Treatment Upcoming Encounters Date Type Specialty Care Team Description 04/07/2022 Office Visit Hematology and Oncology Guevara Carlson MD [facility] DR HEMATOLOGY/[place] [address] Orin Summers APRN [facility] DR [place]EMATOLOGY [place] [address] 04/07/2022 Infusion Hematology and Oncology documented as of this encounter Visit Diagnoses Not on filedocumented in this encounter Care Teams Outpatient Scheduler Relationship Specialty Start Date End Date Arianna Nunez MD PCP - General Family Medicine 10/28/21 Yi [address] [place] [address] documented as of this encounter
--- OUTSIDE RECORDS SUMMARY | 2022-03-28 01:21 | XMS_ITS | Encounter Summary ---
:1945 Author Organization [facility] [place] [address] Care Team Providers Name Role Phone Arianna Nunez MD Primary Care Provider Encounter Details Date Type Department Care Team Description 02/03/2022 Office Visit Hematology/Oncology Sheri Carlson MD [facility] DR HEMATOLOGY/[place] [address] 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[facility] [address] [place] [address] MEDICAL ONCOLOGY [place], [place] [id number] Medication management [address] [place] [phone] Social History Tobacco Use Types Packs/Day Years Used Date Current Every Day Smoker Cigarettes 0.25 63 Smokeless Tobacco: Never Used Comments: 1 cigarette daily Sex Assigned at Date Recorded Not on file documented as of this encounter Last Filed Vital Signs Vital Sign Reading Time Taken Comments Blood Pressure 125/55 02/03/2022 12:51 PM EDT Pulse 84 02/03/2022 12:51 PM EDT Temperature 36.2 ??C (97.2 ??F) 02/03/2022 12:51 PM EDT Respiratory Rate 20 02/03/2022 12:51 PM EDT Oxygen Saturation 91% 02/03/2022 12:51 91 % on 2L of oxygen. PM EDT Via [place] Inhaled Oxygen - - Concentration Weight 75.5 kg (166 lb 6.4 02/03/2022 12:51 oz) PM EDT Height 158.5 cm (5' 2.4) 02/03/2022 12:51 PM EDT Body Mass Index 30.04 02/03/2022 12:51 PM EDT documented in this encounter Progress Notes Orin Summers, SENIOR COBOL DEVELOPER - 02/03/2022 1:00 PM EDT Images from the original note were not included. Hematology & Medical Oncology [address] [phone] Carly Arguelles is being seen for the [...] intent. She has transferred her care to [facility] as she has recently moved. She [...] - occasionally goes down to 1L. Orin Summers SENIOR COBOL DEVELOPER 02/03/2022 Medical Oncology & Hematology [facility] HPI/Interval History/Subjective: Last seen 01/13/22 Seen in the ED 4.11 with left sided chest pain. Had CTA negative for PE and labsEKG. Not etiology identified. Left sided chest pain occurs rarely and Madelin described as much better. Last a few minutes and resolves Breathing unchaged on 1-2L O2 nasal cannula (is CO2 retainer she notes) 01/05 back pain (chronic issue at baseline)- [...] 2020 which was very difficult.. Moved to [facility] 2021. Lives in [facility] apartments (prior living arrangement that she had with her stepson was deemed unsafe) Lives alone. Working well. Utilizes meals on wheels and RTC services. Uses Medicaid. 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 Also worked in [employer]. Tobacco use: Still smokes 1 cig per day. 50+ pk year hx. Alcohol use: Does not drink. Financial Distress: Limited. Arvind Quigley is her case assistant through [employer] Likes to read and do jigsaw puzzles. Likes mysteries Family History: Mother- Dscd 50 due diabetic complications Father- Dscd due to CHF. Doesn't know a lot of details Oncology Overview: # Malignant neoplasm of female breast (HCC-[facility]) 1998: Stage 1 Left ductal breast cancer - T1a,N0,M0,G1 - ER+/OK-. 0/12 node involvement. - Completed 5 years tamoxifen. # NSCLC T2N0 - 2007: Right lower lobectomy [...] ONCOLOGY (AMB) 10/07/2021 10/28/2021 11/20/2021 12/16/2021 01/13/2022 Day, Cycle Day 1, Cycle 1 Day 1, Cycle 2 Day 1, Cycle 3 Day 1, Cycle 4 Day 1, Cycle 5 pembrolizumab 25 mg/mL (Keytruda) IV 200 mg [...] Sig Taking? losartan (Cozaar) 50 mg Tablet fluconazole (Diflucan) [...] TIMES A DAY NEEDED FOR DIFFICULTY BREATHING [facility] Spacer USE DIRECTED DULoxetine DR (Cymbalta) 60 [...] Exam: Wt Readings from Last 3 Encounters: 02/03/22 75.5 kg (166 lb 6.4 oz) 01/13/22 76.3 kg (168 lb 3.2 oz) 12/16/21 73.2 kg (161 lb 6 oz) Temp Readings from Last 3 Encounters: 02/03/22 36.2 ??C (97.2 ??F) (Temporal) 01/13/22 36.1 ??C (97 ??F) (Temporal) 12/16/21 36.2 ??C (97.1 ??F) (Temporal) BP Readings from Last 3 Encounters: 02/03/22 125/55 01/13/22 137/54 12/16/21 143/64 Pulse Readings from Last 3 Encounters: 02/03/22 84 01/13/22 84 12/16/21 86 There is no height or weight on [...] albumin 3.7, TSH 1.42, Free T4 1.01 01.13.22 White blood cells 8.75 hemoglobin 10.6 [...] Imaging Data: 01.06.22 CTA performed in the [facility] ED compared to 10/29/2021 No evidence of pulmonary embolism stable appearance of right pleural collection and areas of nodularity and scarring 2..22 Review of Pathology Data: documented in this encounter Plan of Treatment Upcoming Encounters Date Type Specialty Care Team Description 04/07/2022 Office Visit Hematology and Oncology Guevara Carlson MD [facility] DR HEMATOLOGY/[place] [address] Orin Summers APRN [facility] [place] [address] 04/07/2022 Infusion Hematology and Oncology documented as of this encounter Visit Diagnoses Diagnosis 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
--- OUTSIDE RECORDS SUMMARY | 2022-03-28 01:22 | XMS_ITS | Encounter Summary ---
:1945 Author Organization [facility] [place] [address] Care Team Providers Name Role Phone Soila Faustin MD Primary Care Provider Encounter Details Date Type Department Care Team Description 09/24/2021 Abstract Hematology/Oncology at [address] [phone] Social History Tobacco Use Types Packs/Day Years Used Date Never Assessed Sex Assigned at Date Recorded Not on file documented as of this encounter Plan of Treatment Upcoming Encounters Date Type Specialty Care Team Description 04/07/2022 Office Visit Hematology and Oncology Guevara Carlson MD [facility] DR HEMATOLOGY/[place] [address] Orin Summers APRN [facility] DR [place] [address] 04/07/2022 Infusion Hematology and Oncology documented as of this encounter Visit Diagnoses Not on filedocumented in this encounter Care Teams Candy Maker Relationship Specialty Start Date End Date Soila Faustin MD PCP - General General Internal Medicine 09/19/2110/27/ 2 [address] [place] [address] documented as of this encounter
--- OUTSIDE RECORDS SUMMARY | 2022-03-28 01:22 | XMS_ITS | Encounter Summary ---
:1945 Author Organization [facility] [place] [address] Care Team Providers Name Role Phone Soila Faustin MD Primary Care Provider Encounter Details Date Type Department Care Team Description 09/25/2021 External Results Medical Records Provider, [facility] [place] [address] Social History Tobacco Use Types Packs/Day Years Used Date Never Assessed Sex Assigned at Date Recorded Not on file documented as of this encounter Plan of Treatment Upcoming Encounters Date Type Specialty Care Team Description 04/07/2022 Office Visit Hematology and Oncology Guevara Carlson MD [facility] DR HEMATOLOGY/[place] [address] Orin Summers APRN [facility] DR HEMATOLOGY [place] [address] 04/07/2022 Infusion Hematology and Oncology documented as of this encounter Procedures Procedure Name Priority Date/Time Associated Diagnosis Comme nts SURGICAL PATHOLOGY Routine 09/25/2021 Results f or this SCAN procedure are i n the results section . documented in this encounter Results Scan Doc: Surgical Pathology (09/25/2021) Narrative This result has an attachment that is no t available. Historical Provider MD SANCHEZ MGR SCAN EXT ORDR/RSLT documented in this encounter Visit Diagnoses Not on filedocumented in this encounter Care Teams Grain Broker And Market Operator Relationship Specialty Start Date End Date Soila Faustin MD PCP - General General Internal Medicine 09/19/2110/27/ 2 [address] [place] [address] documented as of this encounter
--- OUTSIDE RECORDS SUMMARY | 2022-03-28 01:22 | XMS_ITS | Encounter Summary ---
:1945 [place] [address] Care Team Providers Name Role Phone Unavailable Primary Care Provider Unavailable Encounter Details Date Type Department Care Team Description 04/29/2018 Ancillary Procedure [facility] [address] [address] [place] [address] [phone] Social History Tobacco Use Types Packs/Day Years Used Date Never Assessed Sex Assigned at Date Recorded Not on file documented as of this encounter Plan of Treatment Upcoming Encounters Date Type Specialty Care Team Description 04/07/2022 Office Visit Hematology and Oncology Guevara Carlson MD [facility] DR HEMATOLOGY/[place] [address] Orin Summers APRN [facility] [address] [place] [address] 04/07/2022 Infusion Hematology and Oncology documented as of this encounter Procedures Procedure Name Priority Date/Time Associated Diagnosis Comme nts FILM LIBRARY Routine 04/29/2018 12:00 AM Results for this STORAGE ONLY NM EDT procedure ar e in PET/CT the results section. documented in this encounter Results Film Library- Storage Only NM Pet / CT (04/29/2018 12:00 AM EDT) Specimen (Source) Anatomical Location Collection Method / Collectio n Time Received Time / Laterality Volume Narrative [facility] - 09/24/2021 9:59 AM EST This exam is auto-finalizing. It's purpo se is for storage only. Soila Faustin MD IMG FILM LIBRARY ORDERABLES Performing Organization Address City/State/ZIP Code Phon e Number DH RAD DH ESME [place] documented in this encounter Visit Diagnoses Not on filedocumented in this encounter
--- OUTSIDE RECORDS SUMMARY | 2022-03-28 01:22 | XMS_ITS | Encounter Summary ---
:1945 [place] [address] Care Team Providers Name Role Phone Unavailable Primary Care Provider Unavailable Encounter Details Date Type Department Care Team Description 10/31/2020 Ancillary Procedure Radiology [facility] at [facility] [place] [address] [facility] [address] [facility] [place] [address] [place], [place] [phone] (Wo rk) Social History Tobacco Use Types Packs/Day Years Used Date Never Assessed Sex Assigned at Date Recorded Not on file documented as of this encounter Plan of Treatment Upcoming Encounters Date Type Specialty Care Team Description 04/07/2022 Office Visit Hematology and Oncology Guevara Carlson MD [facility] DR HEMATOLOGY/[place] [address] Orin Summers APRN [facility] HEMATOLOGY [place] [address] 04/07/2022 Infusion Hematology and Oncology documented as of this encounter Procedures Procedure Name Priority Date/Time Associated Diagnosis Comme nts FILM LIBRARY Routine 10/31/2020 12:00 AM Results for this STORAGE ONLY CT EST procedure ar e in CHEST ABDOMEN the results PELVIS section. documented in this encounter Results Film Library- Storage Only CT Chest Abdomen Pelvis (10/31/2020 12:00 AM EST) Specimen (Source) Anatomical Location Collection Method / Collectio n Time Received Time / Laterality Volume Narrative RAD - 10/24/2021 8:39 PM EST This exam is auto-finalizing. It's purpo se is for storage only. Lanette Dimas APRN IM FILM LIBRARY ORDERABLES Performing Organization Address City/State/ZIP Code Phon e Number DH RAD RAD [place], [place] documented in this encounter Visit Diagnoses Not on filedocumented in this encounter
--- OUTSIDE RECORDS SUMMARY | 2022-03-28 01:22 | XMS_ITS | Encounter Summary ---
:1945 Author Organization [facility] Address [address] [place] [address] Care Team Providers Name Role Phone Soila Faustin Primary Care Provider Reason for Visit Reason Onset Date Comments Appointment Related 10/09/2021 Encounter Details Date Type Department Care Team Description 10/09/2021 Telephone [facility] Bella MD Appointment Related [facility] Adult Hematology & [address] [facility], Oncology [facility] [address] [facility] [address] [place] [address] [place], [place] [phone] (Wo rk) Social History Tobacco Use [...] with Dr Bella, pt has moved to [place], [place]. Pt wanted to let Dr Tipirneni know that she was very happy with him and the care she received. She had to change because RCT transportation said that it is a lot closer for them to drive her to [facility] vs driving her [employer]. documented in this encounter Plan of Treatment Not on filedocumented as of this encounter Visit Diagnoses Not on filedocumented in this encounter Care Teams Radio Commentator Relationship Specialty Start Date End Date Soila Faustin PCP - General Internal Medicine - Primary 02/06/20 [address] [place] [address] documented as of this encounter
--- OUTSIDE RECORDS SUMMARY | 2022-03-28 01:22 | XMS_ITS | Encounter Summary ---
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 of liver Yovanny Carlson MD Procedures CT Chest & Abdomen w Contrast [facility] DR HEMATOLOGY/[place] [address] Referral ID Status Reason Start Expiration Visits Visits Date Date Requested Authorized [id number] Pending Specialty 10/07/2021 04/06/2023 1 1 Review Service Requested Encounter Details Date Type Department Care Team Description 10/07/2021 Office Visit Hematology/Oncology Sheri Carlson MD [facility] DR HEMATOLOGY/[place] [address] 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; at [facility] Lanette Dimas APRN [address] [place] [address] DR MEDICAL ONCOLOGY [place], [place] [phone] Secondary malignant neoplasm of liver [address] [place] [phone] Social History Tobacco Use Types Packs/Day Years Used Date Current Every Day Smoker Cigarettes 63 Smokeless Tobacco: Never Used Comments: 1 cigarette daily Sex Assigned at Date Recorded Not on file documented as of this encounter Last Filed Vital Signs Vital Sign Reading Time Taken Comments Blood Pressure 122/52 10/07/2021 9:44 AM EST Pulse 81 10/07/2021 9:44 AM EST Temperature 36.8 ??C (98.2 ??F) 10/07/2021 9:44 AM EST Respiratory Rate 20 10/07/2021 9:44 AM EST Oxygen Saturation 93% 10/07/2021 9:44 AM EST 3 liter s Inhaled Oxygen Concentration - - Weight 73.3 kg (161 lb 9.6 oz) 10/07/2021 9:48 AM EST Height 158.5 cm (5' 2.4) 10/07/2021 9:44 AM EST Body Mass Index 29.18 10/07/2021 9:44 AM EST documented in this encounter Progress Notes Yovanny Carlson MD - 10/07/2021 9:00 AM EST Images from the original note were not included. Hematology & Medical Oncology [place] [phone] Carly Arguelles is being seen for the [...] pembrolizumab with overall palliative intent. She is transferring her care to [facility] as she has recently moved. Discussed ongoing management. She appears to be tolerating treatment well. Plan: - Labs and toxicities assessed and acceptable for ongoing treatment. - Will need to obtain her most recent scans for comparisons in our system - Restage with CT scan locally - RTC in 3 weeks Yovanny Carlson MD, MS 10/07/2021 Medical Oncology & Hematology [facility] HPI/Interval History/Subjective: Carly Arguelles is a 76 y.o. female [...] 2nd line pembrolizumab with overall palliative intent. Last CT scan was in July at [facility]. Last PET scan was in January at [facility] Has had some skin peeling on her feet but no rashes. No diarrhea. Tends towards constipation. On Miralax PRN. On the chronic morphine for her chronic back pain. Takes Tylenl 1000mg TID. No fevers or infections Got COVID vaccine and booster. On 2 L home O2 continuousl. Uses a rolling walker at baseline On patch and still smokes 1 cug ppd Social History/Support Network: Home situation: . in November 2020 which was very difficult.. Moved to [facility] 2021. Lives in [facility] apartments (prior living arrangement that she had with her matthieuon was deemed unsafe) Lives alone. Working well. Utilizes meals on wheels and RTC services. Uses Medicaid. 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 Also worked in [employer]. Tobacco use: Still smokes 1 cig per day. 50+ pk year hx. Alcohol use: Does not drink. Financial Distress: Limited. Arvind Quigley is her egg caser through [employer] Likes to read and do jigsaw puzzles. Likes mysteries Family History: Mother- Dscd 50 due diabetic complications Father- Dscd due to CHF. Doesn't know a lot of details Oncology Overview: # Malignant neoplasm of female breast (HCC-[facility]) 1997: Stage 1 Left ductal breast cancer - T1a,N0,M0,G1 - ER+/NV-. 0/12 node involvement. - Completed 5 years [...] Molecular Data: QNS at time of biopsy No flowsheet data found. Patient Active Problem List Diagnosis Date Noted ??? Secondary malignant neoplasm of liver 10/07/2021 ??? Medication management 10/07/2021 ??? 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 Codeine Anaphylaxis Patient states she is not allergic to codeine 04/09/21 13:49 ??? Penicillins Anaphylaxis ??? Tetracycline Anaphylaxis Medications 10/07/21 1005 Medication Sig Taking? morphine CR (Ms [...] Yes torsemide (Demadex) 20 mg Tablet Take by mouth. Yes nicotine (Nicoderm CQ) 21 mg/24 hr Patch 24 hr APPLY 1 PATCH TO SKIN ONCE A DAY Yes losartan (COZAAR) 100 mg Tablet TAKE [...] A DAY NEEDED FOR DIFFICULTY BREATHING Yes [facility] Spacer USE DIRECTED Yes DULoxetine DR (Cymbalta) [...] AREDS ORAL) Take by mouth Daily. Yes naloxone HCl (NARCAN NASL) 4 mg by Nasal route as needed. I reviewed the problem list, allergies, medications, past medical history, social history and familyhistory within the EPIC encounter. Pertinent details are noted above. Pertinent positives and negative from the Review of Systems are as summarized above in the HPI. Physical Exam: Wt Readings from Last 3 Encounters: 10/07/21 73.3 kg (161 lb 9.6 oz) Temp Readings from Last 3 Encounters: 10/07/21 36.8 ??C (98.2 ??F) (Temporal) BP Readings from Last 3 Encounters: 10/07/21 122/52 Pulse Readings from Last 3 Encounters: 10/07/21 81 Body surface area is 1.8 meters squared. Wt Readings from Last 3 Encounters: 10/07/21 73.3 kg (161 lb 9.6 oz) [...] time. No distress. Thin. Uses a rolling walker HENT: Mouth/Throat: Deferred due to COVID. Wearing a [...] (placed in 2019) Review of Laboratory Data: 10/07/2021 Sodium 140 potassium 4.5 chloride 101 [...] Guevara Carlson MD [facility] HEMATOLOGY/[place] [address] Orin Summers APRN [facility] [place] [address] 04/07/2022 Infusion Hematology and Oncology Scheduled Orders Name Type Priority Associated Diagnoses Order S chedule CT Chest & Abdomen w Imaging Routine Primary malignant Ex pected: 10/21/2021 Contrast neoplasm of left lower (Appr oximate), lobe of lung Expires: 04/22/2022 Secondary malignant neoplasm of liver documented as of this encounter Visit Diagnoses Diagnosis 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
--- OUTSIDE RECORDS SUMMARY | 2022-03-28 01:22 | XMS_ITS | Encounter Summary ---
:1945 [place] [address] Care Team Providers Name Role Phone Unavailable Primary Care Provider Unavailable Encounter Details Date Type Department Care Team Description 08/08/2021 Ancillary Procedure Radiology Library at [place] Faustin [facility] [address] [address] [place] [address] [phone] Social History Tobacco Use Types Packs/Day Years Used Date Never Assessed Sex Assigned at Date Recorded Not on file documented as of this encounter Plan of Treatment Upcoming Encounters Date Type Specialty Care Team Description 04/07/2022 Office Visit Hematology and Oncology Guveara Carlson MD [facility] DR HEMATOLOGY/[place] [address] Orin Summers APRN [facility] DR HEMATOLOGY [place] [address] 04/07/2022 Infusion Hematology and Oncology documented as of this encounter Procedures Procedure Name Priority Date/Time Associated Diagnosis Comme nts FILM LIBRARY Routine 08/08/2021 12:00 AM Results for this STORAGE ONLY CT EST procedure ar e in ABDOMEN the results section. documented in this encounter Results Film Library- Storage Only CT Abdomen (08/08/2021 12:00 AM EST) Specimen (Source) Anatomical Location Collection Method / Collectio n Time Received Time / Laterality Volume Narrative RAD - 10/24/2021 1:29 PM EST This exam is auto-finalizing. It's purpo se is for storage only. Soila Faustin MD IMG FILM LIBRARY ORDERABLES Performing Organization Address City/State/ZIP Code Phon e Number DH RAD [place] [place] documented in this encounter Visit Diagnoses Not on filedocumented in this encounter
--- OUTSIDE RECORDS SUMMARY | 2022-03-28 01:22 | XMS_ITS | Encounter Summary ---
:1945 Author Organization [facility] Address [address] [place] [address] Care Team Providers Name Role Phone Soila Faustin Primary Care Provider Reason for Visit Reason Onset Date Comments Appointment Related 08/13/2021 Encounter Details Date Type Department Care Team Description 08/13/2021 Telephone [facility] Hardeep Bella MD Appointment Related [facility] [place] [facility] & [address] [facility], Oncology M[facility] [address] [facility] [address] [place] [address] [place] [phone] (Wo rk) Social History Tobacco Use [...] on filedocumented in this encounter Care Teams Aegis Operations Specialist Relationship Specialty Start Date End Date Soila Faustin PCP - General Internal Medicine - Primary 02/06/[address] [place] [address] [place] [address] documented as of this encounter
--- OUTSIDE RECORDS SUMMARY | 2022-03-28 01:22 | XMS_ITS | Encounter Summary ---
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 Secondary malignant neoplasm of liver Medication management Yovanny Carlson MD [facility] Hem Onc Office Procedures [address] HEMATOLOGY/[place] [phone] Fax: Referral ID Status Reason Start Date Expiration Date Visits V isits Requested Authorized [id number] Authorized 09/28/2021 09/27/2022 99 99 Encounter Details Date Type Department Care Team Description 10/07/2021 Infusion Hematology Oncology at [facility] malignant neoplasm of liver; [facility] Medication management; [address] [place] [address] Primary malignant neoplasm o f left lower lobe of lung [place], [place] [phone] Social History Tobacco Use Types Packs/Day Years Used Date Current Every Day Smoker Cigarettes 63 Smokeless Tobacco: Never Used Comments: 1 cigarette daily Sex Assigned at Date Recorded Not on file documented as of this encounter Progress Notes Nadia Espinosa RN - 10/07/2021 10:00 AM EST INFUSION THERAPY ADMINISTRATION NOTES DIAGNOSIS: NSCLC CYCLE #: Cycle 1, Day 1 - Pembrolizumab REASON FOR VISIT: To receive chemotherapy. SUBJECTIVE: Carly offers no complaints. OBJECTIVE: O2, 2L NC continuously. Seen by provider. Ready to treat. LAB DATA: WBC - 7.38, H/H - 11.1/37.3, Plt Ct - 222, ANC - 5.42, Lytes wnl, BUN/Cr - 29/0.9, MG - 1.9, TSH/Free T4 - 3.16/1.06 IV ACCESS: Port accessed without difficulty. Flushes [...] and 500 units of heparin and de-accessed. Pt. chemo teaching instructions included: During clinic hours (8am-5pm Thursday-Thursday): pt. can call [phone] with questions or concerns. After clinic hours (5pm-8am Thursday-Thursday and weekends) pt can call [phone] and ask for the drama critic/oncologist aeronautical engineer. Carlyasya Knighton verbalized understanding of potential chemotherapy side effects and home care including but not limited to- handwashing to prevent infection, signs and symptoms of low blood counts (fever, fatigue, bleeding), to call with a fever of 100.4 or greater, any significant constipation/diarrhea, importance of nutrition and fluid intake (drinking at least 32-64 ounces of non- caffeinated beverages/day), mouth care. Carly Arguelles verbalized understanding of how to take prescription medications given for home use after chemotherapy. PLAN: Return to clinic in three weeks. documented in this encounter Plan of Treatment Upcoming Encounters Date Type Specialty Care Team Description 04/07/2022 Office Visit Hematology and Oncology Guevara Carlson MD [facility] HEMATOLOGY/[place] [address] Orin Summers APRN [facility] HEMATOLOGY [place] [address] 04/07/2022 Infusion Hematology and Oncology documented as [...] Rate Site heparin (pf) (porcine) (100 Given 10/07/2021 12:11 PM EST 500 Un its units/mL) flush 5 mL syringe 500 Units 500 Units, Intravenous, ONCE PRN, Starting on Thu10/07/21 at 1042, Until Thu10/07/21 at 1442, Line Care, Refer to Intravenous (IV) Procedure: Accessing Implanted Vascular Access Devices (654) procedure and/or Intravenous (IV) Job Aid: Adult Flushing & Catheter Care (9612) job aid for additional information regarding guidelines and administration., Routine pembrolizumab (Keytruda) 200 mg in New Bag 10/07/2021 11:36 AM EST 200 mg 216 mL/hr sodium chloride 0.9% 108 mL infusion 200 mg, Intravenous, ONCE, 1 dose, On Thu10/07/21 at 1130, Administer over 30 Minutes, Flush line with NS after each dose., This agent is restricted to outpatient use. Is this drug being given as an outpatient? Yes sodium chloride 0.9 % (flush) (BD PosiFlush Given 09/28 12:10 PM EST 20 mLs Normal Saline 0.9) flush 5-20 mL 5-20 mL, Intravenous, EVERY 1 MIN PRN, Starting on Thu10/07/21 at 1042, Until Thu10/07/21 at 1442, Line Care, Flush pertains to all indwelling lines. Flush per protocol found in the job aid using the link provided on this medication record. Refer to Intravenous (IV) Job Aid: Adult Flushing & Catheter Care (5308) job aid for additional information regarding guidelines and administration., Routine documented in this encounter Care Teams Lace And Textiles Restorer Relationship Specialty Start Date End Date Soila Faustin MD PCP - General General Internal Medicine 09/19/21 2 [address] [place] [address] documented as of this encounter
--- OUTSIDE RECORDS SUMMARY | 2022-03-28 01:22 | XMS_ITS | Encounter Summary ---
:1945 Author Organization [facility] [place] [address] Care Team Providers Name Role Phone Soila Faustin MD Primary Care Provider Encounter Details Date Type Department Care Team Description 10/07/2021 Notes Only Hematology/Oncology at Nel Cabrera MSW [facility] OFFICE OF CARE [address] [place] [phone] Social History Tobacco Use Types Packs/Day Years Used Date Current Every Day Smoker Cigarettes 63 Smokeless Tobacco: Never Used Comments: 1 cigarette daily Sex Assigned at Date Recorded Not on file documented as of this encounter Progress Notes Nel Cabrera MSW - 10/07/2021 10:52 AM EST Reason for Referral: Brief assessment of social and emotional needs. Met with pt during her infusionvisit to introduce myself and role of 7th grade social studies teacher to assess/address barriers to getting to and through treatments; address support needs and connect with community services and resources as needed. Family/Social Supports: Pt is since November 2020. She has 5 stepdaughters. Lisy is her decision maker. Mona lives the closest. The others live out of the area or out os state. She has a stepson who she has no contact with. Living Situation/Daily Activities/Transportation: Pt moved into a new apartment locally this past August. She indicated she is able to manage her daily chores and activities. She does have a HM from [facility] once a week for 2 hours to help with chores. She has a visiting nurse once a month. Her family preservation caseworker is Preeti from [facility]. Pt uses [facility] for transportation and she schedules her own rides. Work/Finances/Insurance: Pt has Medicaid for insurance. Advance Directives: Pt indicated she has a DNR order and requested a copy for her record. Utilization of Community Resources: [facility] for RN, CM and HM services; MOW/7 meals a week Adjustment to Illness/Mental Health Concerns: Need to assess further. Pt is supported by some familyand agency based staff. Identified Needs: Pt did not identify any specific needs at this time. Referrals: None at this time. Social Work Interventions: Brief assessment Supportive Counseling Community Resource Plan: Informed pt of EMS INSTRUCTOR availability and contact information. Will follow to assess/address psychosocial needs. SHAVON Alonzo, MARKETING PROJECT COORDINATOR, OSW-C Health Information Coder [facility] documented in this encounter Plan of Treatment Upcoming Encounters Date Type Specialty Care Team Description 04/07/2022 Office Visit Hematology and Oncology Guevara Carlson MD [facility] [address] HEMATOLOGY/[place] [address] Orin Summers APRN [facility] [address] [place] [address] 04/07/2022 Infusion Hematology and Oncology documented as of this encounter Visit Diagnoses Not on filedocumented in this encounter Care Teams Customer Account Manager Relationship Specialty Start Date End Date Soila Faustin MD PCP - General General Internal Medicine 09/19/21 2 [address] [place] [address] documented as of this encounter
--- OUTSIDE RECORDS SUMMARY | 2022-03-28 01:22 | XMS_ITS | Clinical Summary ---
:1945 Author Organization [facility] Address [address] [place] [address] Care Team Providers Name Role Phone Ramin [...] ductal breast cancer - T1a,N0,M0,G1 - ER+/[place]-. 012 node involvement. - Completed 5 years tamoxifen. 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 Primary malignant neoplasm of lung ([facility]) 0 Overview: Problem 28 March 2018: [...] Date/Time Associated Diagnosis Comme nts [facility] Today 02/12/2022 14:45 LAB PCR EDT COVID-19 TESTING Routine 02/12/2022 14:45 Results for this EDT procedure are i n the results section. HEPATITIS C AB W Routine 01/10/2022 11:12 Results for this REFLEX TO HCV RNA EDT procedure are in BY PCR the results section. from Last 3 Months Results COVID-19 TEST [facility] LAB PCR (02/12/2022 14:45 EDT) Specimen Swab Performing Organization Address City/[facility] Code Phon e Number [facility] [address] [place] [address] SERVICES COVID-19 TESTING (02/12/2022 14:45 EDT) COVID-19 rt-PCR Negative Negative [facility] Result Comment: CENTER LABORATORY This [...] performed using the tim SARS-CoV-2 assay ([employer] on the Tim 6800 System Performing Lab Tim 6800 [facility] Lab [facility] SERVICES Specimen Swab Performing Organization Address City/[facility]/ZIP Code Phon e Number [facility] [address] [place] [address] SERVICES HEPATITIS C AB W REFLEX TO HCV RNA BY PCR (01/10/2022 11:12 EDT) Pathologist Sig nature Hep C Antibody Negative Negative [facility] SERVICES Specimen Blood - Venous blood (substance) Performing Organization Address City/State/ZIP Code Phon e Number [facility] [address] [place] [address] SERVICES from Last 3 Months Insurance Payer Benefit Plan / Subscriber ID Effective Phone Address T ype Group Dates MEDICARE MEDICARE A/B [id number] 2001-Pres [address] Medicare [place] [id number] [id number] 2021-Prese [address] [place] [address] [id number] 2021-Pres [address] [place] [id number] BlnaeCarly Personal/Family Self 1945 [address] (Home) [place] [address] BlaneCarly Personal/Family Self 1945 [address] (Home) [place] [address] BlaneCarly Personal/Family Self 1945 [address] (Home) [place] [address] Blane,Carly Personal/Family Self 1945 [address] (Home) [place] [address] BlaneCarly Personal/Family Self 1945 [address] (Home) [place] [address] Blane,Carly Personal/Family Self 1945 [address] (Home) [place] [address] Carly Arguelles Personal/Family Self 1945 [address] (Home) [place] [address] Advance Directives For more information, please contact: [phone] Documents on File Type Date Recorded Patient Timber Appraiser Explanati on Advance Directives and Living Will Power of Microeconomics Professor Care Teams Operations Research Scientist Relationship Specialty Start Date End Date Soila Faustin PCP - General Internal Medicine - Primary 02/06/20 4 [address] [facility] [place] [address]
--- OUTSIDE RECORDS SUMMARY | 2022-03-28 01:22 | XMS_ITS | Encounter Summary ---
:1945 Author Organization [facility] [place] [address] Care Team Providers Name Role Phone Soila Faustin MD Primary Care Provider Encounter Details Date Type Department Care Team Description 10/04/2021 Orders Only Hematology and Oncology at Yovanny Carlson MD [facility] Pablo arzola HEMATOLOGY/[place] [address] [place] [address] [phone] (Wo rk) Social History Tobacco Use Types Packs/Day Years Used Date Never Assessed Sex Assigned at Date Recorded Not on file documented as of this encounter Plan of Treatment Upcoming Encounters Date Type Specialty Care Team Description 04/07/2022 Office Visit Hematology and Oncology Guevara Carlson MD [facility] DR HEMATOLOGY/[place] [address] Orin Summers APRN [facility] [place] [address] 04/07/2022 Infusion Hematology and Oncology documented as of this encounter Visit Diagnoses Not on filedocumented in this encounter Care Teams Geophysical Drafter Relationship Specialty Start Date End Date Soila Faustin MD PCP - General General Internal Medicine 09/19/21 2 [address] [place] [address] documented as of this encounter
--- OUTSIDE RECORDS SUMMARY | 2022-03-28 01:22 | XMS_ITS | Encounter Summary ---
:1945 Author Organization [facility] [place] [address] Care Team Providers Name Role Phone Soila Faustin MD Primary Care Provider Encounter Details Date Type Department Care Team Description 09/24/2021 Orders Only Hematology and Yovanny Carlson, 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; [facility]cology at [facility] [place] Medication management [facility] [address] [place] HEMATOLOGY/ONCOLOGY [address] DEPT [phone] [place], [place] [address] (Wo rk) Social History Tobacco Use Types Packs/Day Years Used Date Never Assessed Sex Assigned at Date Recorded Not on file documented as of this encounter Plan of Treatment Upcoming Encounters Date Type Specialty Care Team Description 04/07/2022 Office Visit Hematology and Oncology Guevara Carlson MD [facility] [address] HEMATOLOGY/[place] [address] [facility] [place] [address] 04/07/2022 Infusion Hematology and Oncology Scheduled Orders Name Type Priority Associated Diagnoses Order S chedule Magnesium Lab STAT Primary malignant Once a wee k for 48 neoplasm of left lower Occur rences starting lobe of lung 09/24/2021 unti l 09/24/2022 Comprehensive metabolic Lab STAT Primary malignant Once a week for 48 panel (non-fasting) neoplasm of left lowe r Occurrences starting lobe of lung 09/24/2021 unti l 09/24/2022 CBC (with Diff) Lab STAT Primary malignant Once a week for 48 neoplasm of left lower Occur rences starting lobe of lung 09/24/2021 unti l 09/24/2022 TSH Lab Routine Primary malignant Every thre e weeks for neoplasm of left lower 24 Oc currences starting lobe of lung 09/24/2021 until Medication management 2021 T4, free Lab Routine Primary malignant Every thre e weeks for neoplasm of left lower 24 Oc currences starting lobe of lung 09/24/2021 until Medication management 2021 documented as of this encounter Visit Diagnoses Diagnosis 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 Malignant neoplasm of lower lobe, bronch us, or lung Medication management Encounter for long-term (current) use of other medications documented in this encounter Care Teams Financial Analysis Consultant Relationship Specialty Start Date End Date Soila Faustin MD PCP - General General Internal Medicine 09/19/21 2 [address] [place] [address] documented as of this encounter
--- OUTSIDE RECORDS SUMMARY | 2022-03-28 01:22 | XMS_ITS | Encounter Summary ---
:1945 [place] [address] Care Team Providers Name Role Phone Unavailable Primary Care Provider Unavailable Encounter Details Date Type Department Care Team Description 04/06/2018 Ancillary Procedure Radiology Library at Kelley Faustin [facility] [address] [address] [place] [address] [phone] Social History Tobacco Use Types Packs/Day Years Used Date Never Assessed Sex Assigned at Date Recorded Not on file documented as of this encounter Plan of Treatment Upcoming Encounters Date Type Specialty Care Team Description 04/07/2022 Office Visit Hematology and Oncology Guevara Carlson MD [facility] DR HEMATOLOGY/[place] [address] Orin Summers APRN [facility] [address] [place] [address] 04/07/2022 Infusion Hematology and Oncology documented as of this encounter Procedures Procedure Name Priority Date/Time Associated Diagnosis Comme nts FILM LIBRARY Routine 04/06/2018 12:00 AM Results for this STORAGE ONLY DX EDT procedure ar e in CHEST the results section. documented in this encounter Results Film Library- Storage Only DX Chest (04/06/2018 12:00 AM EDT) Specimen (Source) Anatomical Location Collection Method / Collectio n Time Received Time / Laterality Volume Narrative RAD - 09/24/2021 9:59 AM EST This exam is auto-finalizing. It's purpo se is for storage only. Soila Faustin MD IMG FILM LIBRARY ORDERABLES Performing Organization Address City/State/ZIP Code Phon e Number DH RAD DH ESME [place] documented in this encounter Visit Diagnoses Not on filedocumented in this encounter
--- OUTSIDE RECORDS SUMMARY | 2022-03-28 01:22 | XMS_ITS | Encounter Summary ---
:1945 [place] [address] Care Team Providers Name Role Phone Unavailable Primary Care Provider Unavailable Encounter Details Date Type Department Care Team Description 06/10/2021 Ancillary Procedure Radiology Library at [facility] [address] [facility] [place] [address] [place], [place] [phone] (Wo rk) Social History Tobacco Use Types Packs/Day Years Used Date Never Assessed Sex Assigned at Date Recorded Not on file documented as of this encounter Plan of Treatment Upcoming Encounters Date Type Specialty Care Team Description 04/07/2022 Office Visit Hematology and Oncology Guevara Carlson MD [facility] DR HEMATOLOGY/[place] [address] [facility] [place] [address] 04/07/2022 Infusion Hematology and Oncology documented as of this encounter Procedures Procedure Name Priority Date/Time Associated Diagnosis Comme nts FILM LIBRARY Routine 06/10/2021 12:00 AM Results for this STORAGE ONLY CT EDT procedure ar e in CHEST ABDOMEN the results PELVIS section. documented in this encounter Results Film Library- Storage Only CT Chest Abdomen Pelvis (06/10/2021 12:00 AM EDT) Specimen (Source) Anatomical Location Collection Method / Collectio n Time Received Time / Laterality Volume Narrative RAD - 10/24/2021 9:04 PM EST This exam is auto-finalizing. It's purpo se is for storage only. Lanette Dimas APRN IMG FILM LIBRARY ORDERABLES Performing Organization Address City/State/ZIP Code Phon e Number DH RAD RAD [place], [place] documented in this encounter Visit Diagnoses Not on filedocumented in this encounter
--- OUTSIDE RECORDS SUMMARY | 2022-03-28 01:22 | XMS_ITS | Encounter Summary ---
:1945 Author Organization [facility] Address [address] [place] [address] Care Team Providers Name Role Phone Soila Faustin Primary Care Provider Reason for Visit Reason Comments Chemotherapy And Provider Visit CT Scan Encounter Details Date Type Department Care Team Description 08/13/2021 Telemedicine [facility] - Hardeep Bella Pr imary malignant neoplasm of lung, unspecified laterality (HCC-CMS) (HCC) (Primary Dx); [facility] Adult Hematology MD Liver metastases (HCC-CMS) (HCC) & Oncology [address] [facility], [address] [place] MOB-[facility] [address] [place] [address] [place], [place] [phone] Social History Tobacco Use Types Packs/Day [...] from the original note were not included. [facility] Telephone Visit Today's visit was provided via [...] Diagnosis ??? Malignant neoplasm of female breast ([facility]) 1997: Stage 1 Left ductal breast cancer - T1a,N0,M0,G1 - ER+/[place]-. 0/12 node involvement. - Completed 5 years [...] with me. Hardeep Bella MD Hematology/Oncology [facility] Cc:Orin Schreiber APRN, Dr. Soila Faustin [...] daily. added in this encounter Care Teams Rehab Liaison Relationship Specialty Start Date End Date Soila Faustin PCP - General Internal Medicine - Primary 02/06/20 4 [place] [address] documented as of this encounter
--- OUTSIDE RECORDS SUMMARY | 2022-03-28 01:22 | XMS_ITS | Encounter Summary ---
:1945 [place] [address] Care Team Providers Name Role Phone Unavailable Primary Care Provider Unavailable Encounter Details Date Type Department Care Team Description 08/07/2021 Ancillary Procedure Radiology Library at Kelley Faustin [facility] [address] [address] [place] [address] [phone] Social History Tobacco Use Types Packs/Day Years Used Date Never Assessed Sex Assigned at Date Recorded Not on file documented as of this encounter Plan of Treatment Upcoming Encounters Date Type Specialty Care Team Description 04/07/2022 Office Visit Hematology and Oncology Guevara Carlson MD [facility] DR HEMATOLOGY/[place] [address] Orin Summers APRN [facility] DR HEMATOLOGY [place] [address] 04/07/2022 Infusion Hematology and Oncology documented as of this encounter Procedures Procedure Name Priority Date/Time Associated Diagnosis Comme nts FILM LIBRARY Routine 08/07/2021 12:00 AM Results for this STORAGE ONLY DX EST procedure ar e in CHEST the results section. documented in this encounter Results Film Library- Storage Only DX Chest (08/07/2021 12:00 AM EST) Specimen (Source) Anatomical Location Collection Method / Collectio n Time Received Time / Laterality Volume Narrative RAD - 09/24/2021 9:58 AM EST This exam is auto-finalizing. It's purpo se is for storage only. Soila Faustin MD IMG FILM LIBRARY ORDERABLES Performing Organization Address City/State/ZIP Code Phon e Number DH RAD DH [place] documented in this encounter Visit Diagnoses Not on filedocumented in this encounter
--- OUTSIDE RECORDS SUMMARY | 2022-03-28 01:22 | XMS_ITS | Encounter Summary ---
:1945 [place] [address] Care Team Providers Name Role Phone Unavailable Primary Care Provider Unavailable Encounter Details Date Type Department Care Team Description 06/26/2018 Ancillary Procedure Radiology Library at Kelley Faustin [facility] [address] [address] [place] [address] [phone] Social History Tobacco Use Types Packs/Day Years Used Date Never Assessed Sex Assigned at Date Recorded Not on file documented as of this encounter Plan of Treatment Upcoming Encounters Date Type Specialty Care Team Description 04/07/2022 Office Visit Hematology and Oncology Guevara Carlson MD [facility] DR HEMATOLOGY/[place] [address] Orin Summers APRN [facility] DR HEMATOLOGY [place] [address] 04/07/2022 Infusion Hematology and Oncology documented as of this encounter Procedures Procedure Name Priority Date/Time Associated Diagnosis Comme nts FILM LIBRARY Routine 06/26/2018 12:00 AM Results for this STORAGE ONLY MR EDT procedure ar e in HEAD the results section. documented in this encounter Results Film Library- Storage Only MR Head (06/26/2018 12:00 AM EDT) Specimen (Source) Anatomical Location Collection Method / Collectio n Time Received Time / Laterality Volume Narrative RAD - 09/24/2021 9:58 AM EST This exam is auto-finalizing. It's purpo se is for storage only. Soila Faustin MD IMG FILM LIBRARY ORDERABLES Performing Organization Address City/State/ZIP Code Phon e Number DH RAD DH ESME [place] documented in this encounter Visit Diagnoses Not on filedocumented in this encounter
--- OUTSIDE RECORDS SUMMARY | 2022-03-28 01:22 | XMS_ITS | Encounter Summary ---
:1945 Author Organization [facility] Address [address] [place] [address] Care Team Providers Name Role Phone Soila Faustin Primary Care Provider Encounter Details Date Type Department Care Team Description 02/13/2022 Lab Requisition [facility] Outr Resulting Lab, Pathology & Laboratory Provider [facility] [address] [place] [address] Social History Tobacco Use Types [...] Date/Time Associated Diagnosis Comme nts COVID-19 TEST [facility] Today 02/12/2022 14:45 LAB PCR EDT COVID-19 TESTING Routine 02/12/2022 14:45 Results for this EDT procedure are i n the results section. documented in this encounter Results COVID-19 TEST [facility] LAB PCR (02/12/2022 14:45 EDT) Specimen Swab Performing Organization Address City/State/ZIP Code Phon e Number [facility] [address] [place] [address] SERVICES COVID-19 TESTING (02/12/2022 14:45 EDT) COVID-19 rt-PCR Negative Negative [facility] Result Comment: CENTER LABORATORY This test [...] was performed using the tim SARS-CoV-2 assay ([employer] on the Tim 6800 System Performing Lab Tim 6800 [facility] Lab [facility] SERVICES Specimen Swab Performing Organization Address City/State/ZIP Code Phon e Number [facility] [address] [place] [address] SERVICES documented in this encounter Visit Diagnoses Not on filedocumented in this encounter Care Teams Airframe Technical Officer Relationship Specialty Start Date End Date Soila Faustin PCP - General Internal Medicine - Primary 02/06/20 [address] [place] [address] documented as of this encounter
--- OUTSIDE RECORDS SUMMARY | 2022-03-28 01:22 | XMS_ITS | Encounter Summary ---
:1945 [place] [address] Care Team Providers Name Role Phone Unavailable Primary Care Provider Unavailable Encounter Details Date Type Department Care Team Description 02/05/2021 Ancillary Procedure Radiology Library at Kelley Faustin [facility] [address] [address] [place] [address] [phone] Social History Tobacco Use Types Packs/Day Years Used Date Never Assessed Sex Assigned at Date Recorded Not on file documented as of this encounter Plan of Treatment Upcoming Encounters Date Type Specialty Care Team Description 04/07/2022 Office Visit Hematology and Oncology Guevara Carlson MD [facility] DR HEMATOLOGY/[place] [address] Orin Summers APRN [facility] DR HEMATOLOGY [place] [address] 04/07/2022 Infusion Hematology and Oncology documented as of this encounter Procedures Procedure Name Priority Date/Time Associated Diagnosis Comme nts FILM LIBRARY Routine 02/05/2021 12:00 AM Results for this STORAGE ONLY NM EDT procedure ar e in PET/CT the results section. documented in this encounter Results Film Library- Storage Only NM Pet / CT (02/05/2021 12:00 AM EDT) Specimen (Source) Anatomical Location Collection Method / Collectio n Time Received Time / Laterality Volume Narrative RAD - 10/17/2021 10:03 AM EST This exam is auto-finalizing. It's purpo se is for storage only. Soila Faustin MD IMG FILM LIBRARY ORDERABLES Performing Organization Address City/State/ZIP Code Phon e Number DH RAD ESME [place] documented in this encounter Visit Diagnoses Not on filedocumented in this encounter
--- OUTSIDE RECORDS SUMMARY | 2022-03-28 01:22 | XMS_ITS | Encounter Summary ---
:1945 Author Organization [facility] Address [address] [place] [address] Care Team Providers Name Role Phone Soila Faustin Primary Care Provider Encounter Details Date Type Department Care Team Description 01/11/2022 Lab Requisition [facility] Outr Resulting Lab, Pathology & Laboratory Provider [facility] [address], [place] [address] Social History Tobacco Use Types Packs/Day Years [...] Sig nature Hep C Antibody Negative Negative [facility] SERVICES Specimen Blood - Venous blood (substance) Performing Organization Address City/State/ZIP Code Phon e Number [facility] [address] [place] [address] SERVICES documented in this encounter Visit Diagnoses Not on filedocumented in this encounter Care Teams Ripper Operator Relationship Specialty Start Date End Date Soila Faustin PCP - General Internal Medicine - Primary 02/06/20 [address] [place] [address] documented as of this encounter
--- OUTSIDE RECORDS SUMMARY | 2022-03-28 01:22 | XMS_ITS | Encounter Summary ---
:1945 [place] [address] Care Team Providers Name Role Phone Unavailable Primary Care Provider Unavailable Encounter Details Date Type Department Care Team Description 04/06/2018 Ancillary Procedure Radiology Library at [place] Faustin [facility] [address] [address] [place] [address] [phone] Social History Tobacco Use Types Packs/Day Years Used Date Never Assessed Sex Assigned at Date Recorded Not on file documented as of this encounter Plan of Treatment Upcoming Encounters Date Type Specialty Care Team Description 04/07/2022 Office Visit Hematology and Oncology Guevara Carlson MD [facility] DR HEMATOLOGY/[place] [address] Orin Summers APRN [facility] DR HEMATOLOGY [place] [address] 04/07/2022 Infusion Hematology and Oncology documented as of this encounter Procedures Procedure Name Priority Date/Time Associated Diagnosis Comme nts FILM LIBRARY Routine 04/06/2018 12:05 AM Results for this STORAGE ONLY CT EDT procedure ar e in CHEST the results section. documented in this encounter Results Film Library- Storage Only CT Chest (04/06/2018 12:05 AM EDT) Specimen (Source) Anatomical Location Collection Method / Collectio n Time Received Time / Laterality Volume Narrative RAD - 09/24/2021 10:01 AM EST This exam is auto-finalizing. It's purpo se is for storage only. Soila Faustin MD IMG FILM LIBRARY ORDERABLES Performing Organization Address City/State/ZIP Code Phon e Number DH RAD DH ESME [place] documented in this encounter Visit Diagnoses Not on filedocumented in this encounter
--- OUTSIDE RECORDS SUMMARY | 2022-03-28 01:23 | XMS_ITS | Encounter Summary ---
:1945 Author Organization [facility] Address [address] [place] [address] Care Team Providers Name Role Phone Soila Faustin Primary Care Provider Encounter Details Date Type Department Care Team Description 01/16/2020 Lab Requisition [facility] Clyde Hamm do, MD Encounter for observation for suspected exposure to other biological agents ruled out; Pathology & [address] [facility] Cough; Laboratory Medicine [place], [place] Fever , unspecified - [facility] [phone] [address] [facility] [place] [address] Social History Tobacco Use Types [...] unspecified documented in this encounter Care Teams Senior Network Architect Relationship Specialty Start Date End Date Soila Faustin PCP - General Internal Medicine - Primary 02/06/20 [address] [place], [place] [phone] documented as of this encounter
--- OUTSIDE RECORDS SUMMARY | 2022-03-28 01:23 | XMS_ITS | Encounter Summary ---
:1945 Author Organization [facility] Address [address] [place] [address] Care Team Providers Name Role Phone Soila Faustin Primary Care Provider Encounter Details Date Type Department Care Team Description 02/05/2021 Results Only Imaging [facility] Mary Bella, [facility] Radiology Resul ts [address] [place] [address] [facility] [phone] [address] [place] [address] (Wo rk) Social History Tobacco Use Types [...] TO THIGH (02/05/2021 16:24 EDT) Specimen Narrative [facility] - 02/05/2021 16:24 EDT ? [...] IV injection of 17.79 mCi of ? P60-ihqmqhywfkwwhahvga, PET imagi ng was performed from the [...] evidence of osseous metastatic ? disease. ? Emt B measurements as fo llows: ? * Background [...] CC: ? Transcribed Date/Time: 02/05/2021 (1624) ? Flue Lining Dipper: ? Printed Date/Time: 02/05/2021 (16 24) ? [...] the IV injection of 17.79 mCi of H09-iyxnoqpwgzwgxprefy, PET imaging was performed from the skull [...] PET evide nce of osseous metastatic disease. Emt B measurements as follows: * Background liver uptake: [...] Duncan Herrera MD CC: Transcribed Date/Time: 02/05/2021 (4947 ) Flue Lining Dipper: Printed Date/Time: 02/05/2021 (1642) PAGE 2 Signed Report Performing Organization Address City/State/ZIP Code Phon e Number [facility] documented in this encounter Visit Diagnoses Not on filedocumented in this encounter Care Teams Optoelectronics Engineer Relationship Specialty Start Date End Date Soila Faustin PCP - General Internal Medicine - Primary 02/06/20 [address] [place] [address] documented as of this encounter
--- OUTSIDE RECORDS SUMMARY | 2022-03-28 01:23 | XMS_ITS | Encounter Summary ---
:1945 Author Organization [facility] Address [address] [place] [address] Care Team Providers Name Role Phone Rene [place] MD Primary Care Provider Unavailable Encounter Details Date Type Department Care Team Description 03/17/2018 Results Only Imaging [facility]- Unknown, PRISM ProviderMD [phone] Social History Tobacco Use Types Packs/Day Years [...] on filedocumented in this encounter Care Teams Peanut Cleaner Relationship Specialty Start Date End Date Rene [place] MD PCP - General 11/22/1303/31/18 documented as of this encounter
--- OUTSIDE RECORDS SUMMARY | 2022-03-28 01:23 | XMS_ITS | Encounter Summary ---
:1945 Author Organization [facility] Address [address] [place] [address] Care Team Providers Name Role Phone Unavailable Primary Care Provider Unavailable Encounter Details Date Type Department Care Team Description 06/26/2018 Results Only Imaging [facility]- Sundeep Mendez MD [phone] [address] [facility] [address] [place] [address] (Wo rk) Social History Tobacco [...] Anatomical Region Laterality Modality Other Specimen Narrative [facility] - 06/26/2018 14:22 [...] sequela of chronic microangiopathic disease. Procedure Note Maskim Ryder MD - 06/26/2018 MRI BRAIN WITHOUT [...] City/State/ZIP Code Phon e Number [facility] documented in this encounter Visit Diagnoses Not on filedocumented in this encounter
--- OUTSIDE RECORDS SUMMARY | 2022-03-28 01:23 | XMS_ITS | Encounter Summary ---
:1945 Author Organization [facility] Address [address] [place] [address] Care Team Providers Name Role Phone Unavailable Primary Care Provider Unavailable Encounter Details Date Type Department Care Team Description 04/06/2018 Hospital Encounter [facility] Javier Armijo rt, Cardiovascular Unit MD [address] [facility] [address] [place] [address] Street [phone] [place] [address] (Wo rk) Social History Tobacco [...] for 5 days. When to Contact the [facility] (call [phone] for severe symptoms): 1. Increased shortness of [...] of the symptoms above, please call the [facility] Interventional Radiology clinic at , OPT[facility]. [...] Progress Notes Michelle Pacheco, RN - 04/06/2018 0913 EDT At 1419 pt admitted to CVU [...] in room prior to start of procedure ([facility]/RRW/). Conscious sedation started at 1320. Pt monitored [...] stretcher independently. Patient greeted and identified per [facility] policy. Allergies and procedure verified & patient [...] -Due to sedation patient must have a truck driver rubbish collector (bus or taxi is not allowed) - [...] 13:00 documented in this encounter Procedure Notes Javier Armijo MD - 04/06/2018 1421 EDT IR Procedure Note Procedure: CT guided LLL lung biopsy Date Performed: 04/06/2018 Radiologist/Cpr Instructor(s): Leah Sedation/Anesthesia: Moderate Time Out: A time-out [...] (04/08/2018 0:00 EDT) Reporting Status Sample quantity [facility] insufficient for LABORATORY testing.Comment: SERVICES Cancelled by Pathologist Specimen Other Performing Organization Address City/State/ZIP Code Phon e Number [facility] LABORATORY [address] [place] [address] SERVICES GPST SEQUENCING (04/08/2018 0:00 EDT) Sequencing Status Sample [facility] insufficient for LABORATORY testing.Comment: SERVICES Cancelled by Pathologist Specimen Other Performing Organization Address City/[facility]/ZIP Code Phon e Number [facility] LABOR[facility]ORY [address] [place] [address] SERVICES GPST HYBRIDIZATION (04/08/2018 0:00 EDT) Hybridization Status Sample [facility] insufficient for CENTER LABORATORY testing.Comment: SERVICES Cancelled by Pathologist Specimen Other Performing Organization Address City/State/ZIP Code Phon e Number [facility] LAB[facility]ORY [address] [place] [address] SERVICES GPST AMPLIFICATION (04/08/2018 0:00 EDT) Amplification Status Sample quantity [facility] insufficient for CENTER LABORATORY testing.Comment: SERVICES Cancelled by Pathologist Specimen Other Performing Organization Address City/State/ZIP Code Phon e Number [facility]ORY [address] [place] [address] SERVICES GPST PRE AMPLIFICATION (04/08/2018 0:00 EDT) Pre Amplification Sample quantity [facility] insufficient for CENTER LABORATORY testing.Comment: SERVICES Cancelled by Pathologist Specimen Other Performing Organization Address City/[facility]/ZIP Code Phon e Number [facility]ORY [address] [place] [address] SERVICES GPST EXTRACTION (04/08/2018 0:00 EDT) Extraction Status Sample [facility] insufficient for LABORATORY testing.Comment: SERVICES Cancelled by Pathologist Specimen Other Performing Organization Address City/State/ZIP Code Phon e Number [facility] LAB[facility]ORY [address] [place] [address] SERVICES CHEST PA (04/06/2018 16:06 EDT) Anatomical Region Laterality Modality Other Specimen Narrative [facility] - 04/06/2018 16:26 EDT CHEST 1 [...] Organization Address City/State/ZIP Code Phon e Number [facility] SURGICAL PATHOLOGY (04/06/2018 15:24 EDT) Pathology SURGICAL PATHOLOGY REPORT [facility] [[email or web address]] MEDICAL Report: CENTER Reports generated via electronic interface contain lulu ginal data; LABORATORY however they are lacking the format of the original re port. SERVICES Caution should be taken when reading/interpreting unfo rmatted reports. Name: ? IWOAN ALVARADO PERFECTO Mary ? Accession #: ? [id number] ? : ? 1945 (Age: 72) ??F ?Collect Date: ? 04/06/2018 ? Location: ? [facility] ? Receive Date: ? 04/06/20 18 ? Provider: JAVIER ARMIJO MD Copy to: FELIZ BOWENS MD ? Final Pathologic Diagnosis: LUNG, LEFT, LOWER LOBE, NEEDLE CORE BIOPSY: - Markedly atypical epithelial cells consistent with a denocarcinoma, lung primary. See comment. Comment: Electronic Service Technician slides from the prior hayden g adenocarcinoma ([id number]) and breast adenocarcinoma ([id number]) were reviewed in correlation with the current material. Immunoperoxidase stains were performed on this case to further characterize the lesion, and the immunoreactivity profile supports the diagnosis IMMUNOHISTOCHEMISTRY:. ANTIBODY(CLONE)(BLOCK):RESULT TTF-1 (8G7G3/1, [place]) (1): Positive GATA3 (L50-823, [place]) (1): Negative P40 (BC28, [place]) (1): Negative NOTE: ??One or more of [...] characteristics have been de termined by [facility] and/or by the referring labo lara. ??The [...] entirely in 1 and 2. JORGE Hernandez ([facility]) 04/06/2018 3:43 PM ? PD-L1 IMMUNOHISTOCHEMICAL ASSAY ? Date Ordered: ? 04/12/2018 ? Status: ?? Signed Out ?Date Complete: ? 04/14/2018 ? By: ??Don Tse ? Date Reported: ? 04/14/2018 ? Interpretation PD-L1 Tumor Proportion Score (TPS): ??91-100% Description Tissue submitted: Paraffin e mbedded tissue blocks labelled [id number] (#1 and #2) from [facility] as par t of the Advanced Lung [...] appropriate conditions and tissue controls using the [employer] ction System on the [employer] Ultra. The specimen submitted for testing [...] characteristics have been de termined by [facility] and/or by the referring labo lara. ??The [...] City/State/ZIP Code Phon e Number [facility] LABORATORY [address] [place] [address] SERVICES PLT (04/06/2018 12:00 EDT) Pathologist Sig nature PLT 275 141 - 377 K/cmm [facility] LABORA TORY SERVICES Specimen Blood specimen (specimen) - Blood Performing Organization Address City/State/ZIP Code Phon e Number [facility] LABORATORY [address] [place] [address] SERVICES PROTIME (04/06/2018 12:00 EDT) Pro Time 11.2 10.3 - 13.4 [facility] secs LABORATORY SERVICES I.N.R. 1.0 0.9 - 1.1 [facility] Comment: Ratio LABORATORY SERVICES Moderate Intensity Coumadin INR = 2.0-3.0 Adjustments in anticoagulant therapy dose should be based upon the INR and NOT the Pro Time. Specimen Blood specimen (specimen) - Blood Performing Organization Address City/State/ZIP Code Phon e Number [facility] LABORATORY [address] [place] [address] SERVICES CYTOPATHOLOGY (04/06/2018 0:00 EDT) Pathology CYTOPATHOLOGY REPORT [facility] [[email or web address]] MEDICAL Report: CENTER Reports generated via electronic interface contain lulu ginal data; LABORATORY however they are lacking the format of the original re port. SERVICES Caution should be taken when reading/interpreting unfo rmatted reports. Name: ? GIANNA ALVARADO ? Accession #: ? [id number] : ? 1945 (Age: 72) ??F ?Collect [...] ??Please see also the concurrent core biopsy ([id number]) upon which diagnost ic immunohistochemical stains are performed. The cell block demonstrates only rare malignant cells. Deeper levels of the cell block have bee n examined. The prior right lower lobe lung resection ([id number]) as well as the prior left br east core biopsy ([id number]) have been reviewed. The advanced lung barbara [...] City/State/ZIP Code Phon e Number [facility] LABORATORY [address] [place] [address] SERVICES documented in this encounter Visit Diagnoses [...]
--- OUTSIDE RECORDS SUMMARY | 2022-03-28 01:23 | XMS_ITS | Encounter Summary ---
:1945 Author Organization [facility] Address [address] [place] [address] Care Team Providers Name Role Phone Soila Faustin Primary Care Provider Reason for Visit Reason Comments Follow-up Encounter Details Date Type Department Care Team Description 06/13/[address] [facility] Hardeep Bella, iLz imprema malignant neoplasm of lung, unspecified laterality (HCC-CMS) (Primary Dx); [facility] Adult Hematology MD Liver metastases (HCC-CMS) & Oncology [address] [facility], [address] [place] [address] [place] [address] [place] [phone] Social History Tobacco Use Types Packs/Day [...] Diagnosis ??? Malignant neoplasm of female breast (HCC-[facility]) 1997: Stage 1 Left ductal breast cancer - T1a,N0,M0,G1 - ER+/MS-. 0/12 node involvement. - Completed 5 years tamoxifen. ??? Primary malignant neoplasm of lung (HCC-[facility]) Problem 28 March 2018: Right non-small cell [...] appointment with me. Hardeep Bella MD Hematology/Oncology [facility] Cc:Orin Schreiber APRN, Dr. Soila Faustin [...] daily. added in this encounter Care Teams Fence Post Cutter Relationship Specialty Start Date End Date Soila Faustin PCP - General Internal Medicine - Primary 02/06/20 [address] [place] [address] documented as of this encounter
--- OUTSIDE RECORDS SUMMARY | 2022-03-28 01:23 | XMS_ITS | Encounter Summary ---
:1945 Author Organization [facility] Address [address] [place] [address] Care Team Providers Name Role Phone Soila Faustin Primary Care Provider Reason for Referral Radiology Services (Routine) - Specialty Report Received Specialty Diagnoses / Procedures Referred By Contact Refer red To Contact Nuclear Medicine Diagnoses Primary malignant neoplasm of lung, unspecified laterality ([facility]-CMS) ([facility]) Hardeep Bella MD Procedures PET CT EYE TO THIGH [address] [facility], [address] [place] [address] Referral ID Status Reason Start Date Expiration Date Visits V isits Requested Authorized [id number] Specialty 11/06/2020 1 1 Report Received Reason for Visit Reason Comments Follow-up Encounter Details Date Type Department Care Team Description 11/06/2020 Office Visit [facility] - Hardeep Bella, Liz imary malignant [facility] Adult Hematology neoplasm of lung, & Oncology [address] [facility], unspecified laterality [address] [facility] MOB-B (HCC-[facility]) (Primary Dx) [address] [place] [address] [place], [place] [phone] Social History Tobacco Use Types Packs/Day [...] Left ductal breast cancer - T1a,N0,M0,G1 - ER+/UT-. 0/12 node involvement. - Completed 5 years [...] [facility]. Reviewed CT images with the patient. Showed [...] Hold bevacizumab infusion. Hardeep Bella MD Hematology/Oncology [facility] Cc:Orin Schreiber APRN, [...] daily added in this encounter Care Teams Diabetologist Relationship Specialty Start Date End Date Soila Faustin PCP - General Internal Medicine - Primary 02/06/20 [address] [place] [address] documented as of this encounter
--- OUTSIDE RECORDS SUMMARY | 2022-03-28 01:23 | XMS_ITS | Encounter Summary ---
:1945 Author Organization [facility] Address [address] [place] [address] Care Team Providers Name Role Phone Rene Walker MD Primary Care Provider Unavailable Encounter Details Date Type Department Care Team Description 03/26/2018 Results Only [facility]- Darvin Brady, 2 [facility] [address] [place] [address] (Wo rk) Social History Tobacco [...] 9:56 EDT) TSH 2.14 0.47 - 4.68 [facility] Comment: uIU/ml LABORATORY SERVICES The results of this assay can be falsely lowered due to the consumption of Biotin. Specimen Blood Performing Organization Address City/State/ZIP Code Phon e Number [facility] LABORATORY [address] [place] [address] SERVICES T4 FREE (03/26/2018 9:56 EDT) Pathologist Sig nature T4, Free 1.3 0.8 - 2.2 ng/dl [facility] LABORA TORY SERVICES Specimen Blood Performing Organization Address City/State/ZIP Code Phon e Number [facility] LABORATORY [address] [place] [address] SERVICES documented in this encounter Visit Diagnoses Not on filedocumented in this encounter Care Teams Animal Care Service Worker Relationship Specialty Start Date End Date Rene Walker MD PCP - General 11/22/1303/31/18 documented as of this encounter
--- OUTSIDE RECORDS SUMMARY | 2022-03-28 01:23 | XMS_ITS | Encounter Summary ---
:1945 Author Organization Health system Address [address] [place] [address] Care Team Providers Name Role Phone Soila Faustin Primary Care Provider Encounter Details Date Type Department Care Team Description 01/30/2020 Lab Requisition [facility] Center Outr Resulting Lab, Pathology & Laboratory Provider [facility] [address] [place] [address] Social History Tobacco Use Types [...] documented in this encounter Results COVID-19 TEST [facility] LAB PCR (01/30/2020 13:25 EDT) Specimen Swab - Entire nasopharynx (body structur e) Performing Organization Address City/State/ZIP Code Phon e Number [facility] LABORATORY [address] [place] [address] SERVICES COVID-19 TESTING (01/30/2020 13:25 EDT) COVID-19 rt-PCR Negative Negative [facility] Result Comment: CENTER LABORATORY Negative results [...] terminated or revoked sooner. Performed on the [employer] Fusion instrument Performing Lab [facility] Lab [facility] LABORATORY SERVICES Specimen Swab - Entire nasopharynx (body structur e) Performing Organization Address City/State/ZIP Code Phon e Number [facility]ORATORY [address] [place] [address] SERVICES documented in this encounter Visit Diagnoses Not on filedocumented in this encounter Care Teams Insole Cementer Relationship Specialty Start Date End Date Soila Faustin PCP - General Internal Medicine - Primary 02/06/20 [address] [place] [address] documented as of this encounter
--- OUTSIDE RECORDS SUMMARY | 2022-03-28 01:23 | XMS_ITS | Encounter Summary ---
:1945 Author Organization [facility] Address [address] [place] [address] Care Team Providers Name Role Phone Jerry Jauregui MD Primary Care Provider Rene Walker MD Primary Care Provider Unavailable Soila Faustin Primary Care Provider Encounter Details Date Type Department Care Team Description 12/27/2006 Hospital Encounter [facility] Donnelly [facility] MD [address] [place] [address] Social History Tobacco Use Types Packs/Day Years [...] / COVID-19? documented as of this encounter Plan of Treatment Not on filedocumented as of this encounter Visit Diagnoses Not on filedocumented in this encounter Care Teams Electroencephalogram Technologist Relationship Specialty Start Date End Date Jerry Jauregui MD PCP - General 02/20/13 11/21/13 [address] [place] [address] Rene Walker MD PCP - General 11/22/1303/31/18 Soila Faustin PCP - General Internal Medicine - 02/06/[address] [place] [address] documented as of this encounter
--- OUTSIDE RECORDS SUMMARY | 2022-03-28 01:23 | XMS_ITS | Encounter Summary ---
:1945 Author Organization [facility] Address [address] [place] [address] Care Team Providers Name Role Phone Soila Faustin Primary Care Provider Reason for Visit Reason Comments Follow-up CT Scan Encounter Details Date Type Department Care Team Description 02/07/2020 Office Visit [facility] - Hardeep Bella Pr imary malignant [facility] [place]ology neoplasm of lung, & Oncology [address], unspecified laterality [address] [place] [facility]OB-B ([facility]) (Primary Dx) [address] [place] [address] [place] [phone] Social History Tobacco Use Types Packs/Day [...] ??? Malignant neoplasm of female breast ([facility]) 1997: Stage 1 Left ductal breast cancer - T1a,N0,M0,G1 - ER+/RI-. 0/12 node involvement. - Completed 5 years [...] bevacizumab, tolerating relatively well. Receiving this at [facility]. Reviewed CT images and discussed findings with [...] 1. Proceed with maintenance bevacizumab 15 mg/kg s3sqnsk at [facility]. 2. Continue to monitor proteinuria. 3. Return for follow-up in [address] scans prior. Other Orders Placed This Visit Procedures ??? CT ABDOMEN PELVIS W CONTRAST ??? CT CHEST W CONTRAST Hardeep Bella MD Hematology/Oncology [facility] Cc:Orin Schreiber APRN, Dr. Soila Faustin [...] documented as of this encounter Care Teams Aadc Plans Staff Officer Relationship Specialty Start Date End Date Soila Faustin PCP - General Internal Medicine - Primary 02/06/20 [address] [place] [address] documented as of this encounter
--- OUTSIDE RECORDS SUMMARY | 2022-03-28 01:23 | XMS_ITS | Encounter Summary ---
:1945 Author Organization [facility] Address [address] [place] [address] Care Team Providers Name Role Phone Soila Faustin Primary Care Provider Reason for Visit Reason Onset Date Comments Other 11/19/2020 appointment Encounter Details Date Type Department Care Team Description 11/19/2020 Telephone [facility] - Hardeep Bella MD Other (appointment) [facility] [place] Hematology & [address] [facility], Oncology MOB-B [address] [facility] [address] [place] [address] [place] [phone] (Wo rk) Social History Tobacco Use [...] on filedocumented in this encounter Care Teams Nibbler Operator Relationship Specialty Start Date End Date Soila Faustin PCP - General Internal Medicine - Primary 02/06/20 [address] [place] [address] documented as of this encounter
--- OUTSIDE RECORDS SUMMARY | 2022-03-28 01:23 | XMS_ITS | Encounter Summary ---
:[address] [facility] Address [address] [place] [address] Care Team Providers Name Role Phone Unavailable Primary Care Provider Unavailable Encounter Details Date Type Department Care Team Description 01/12/2007 Before PRISM Converted [facility] - Zoë Donnelly, Visit (Estefani) Estefani mackay MD [address] [place] [address] Social History Tobacco Use Types Packs/Day Years [...] Donnelly MD P - tfm Job ID: [id number] Document ID: [id number] cc: MD Darvin Ji MD Ned I Shulman, MD A Roland, MD D: - Wing Donnelly MD P - tfm Job ID: [id number] Document ID: [id number] cc: MD Darvin Ji MD Ned I Shulman, MD documented in this encounter Plan of Treatment Not on filedocumented as of this encounter Visit Diagnoses Not on filedocumented in this encounter
--- OUTSIDE RECORDS SUMMARY | 2022-03-28 01:23 | XMS_ITS | Encounter Summary ---
:1945 Author Organization [facility] Address [address] [place] [address] Care Team Providers Name Role Phone RaminSoila Primary Care Provider Reason for Visit (Routine/Next Available) - Receiving Office to Obtain Authorization Specialty Diagnoses / Procedures Referred By Contact Refer red To Contact Procedures Unknown, Provider, CT OUTSIDE IMAGES BODY Phone: Referral ID Status Reason Start Expiration Visits Visits Date Date Requested Authorized [id number] Receiving Office 1 to Obtain 1 Authorization Encounter Details Date Type Department Care Team Description 08/08/2021 Hospital Encounter [facility] Secondary Read[place] Social History Tobacco Use Types Packs/Day Years [...] on filedocumented in this encounter Care Teams Ux Developer Designer Relationship Specialty Start Date End Date Soila Faustin PCP - General Internal Medicine - Primary 02/06/20 [address] [place] [address] documented as of this encounter
--- OUTSIDE RECORDS SUMMARY | 2022-03-28 01:23 | XMS_ITS | Encounter Summary ---
:1945 Author Organization [facility] Address [address] [place] [address] Care Team Providers Name Role Phone Unavailable Primary Care Provider Unavailable Encounter Details Date Type Department Care Team Description 01/02/2009 Hospital Encounter [facility] - Deric Mendez MD 111 [facility] [address] [place] [address] [address] [place] [phone] (Wo rk) Social History Tobacco Use Types [...]
--- OUTSIDE RECORDS SUMMARY | 2022-03-28 01:23 | XMS_ITS | Encounter Summary ---
:1945 Author Organization [facility] Address [address] [place] [address] Care Team Providers Name Role Phone Soila Faustin Primary Care Provider Encounter Details Date Type Department Care Team Description 11/15/2020 Results Only Imaging [facility] - Mary Bella, [facility] [place] [place] Radiology Resul ts [address] [place] [address] [facility] [phone] [address] [place] [address] (Wo rk) Social History Tobacco Use Types [...] TO THIGH (11/15/2020 8:25 EST) Specimen Narrative [facility] - 11/15/2020 8:25 EST ? EXAM: PET/CT SCAN/PET/CT SKULL BASE TO PA EX. D/ (0740) ? CLINICAL INFORMATION: ? 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 NEW LIVER LESION ? ON RECENT CT AT [facility]. ?METASTAS IS ? PET/CT SKULL BASE TO MID-THIGH ? Signs and Symptoms/Comments: ??C3 4.90 PRIMARY MALIGNANT NEOPLASM OF ? LUNG, UNSPECIFIED LATERALITY, RES TAGING METASTATIC LUNG CANCER. NEW ? LIVER LESION ON RECENT CT AT [facility]. ?METASTASIS ? Comparison: CT chest abdomen pelv is on 10/31/2020, 08/10/2020, ? 05/11/2020, 07/22/2018. ? Technique: 100 minutes following the IV injection of 19.08 mCi of ? G52-[id number], PET imagi ng was performed from the [...] evidence of osseous metastatic ? disease. ? Instructional Materials Director measurements as fo llows: ? * ??Background [...] CC: ? Transcribed Date/Time: 11/15/2020 (824) ? Marketing Strategy Manager: ? Printed Date/Time: 11/15/2020 (05 22) ? PAGE 2 ? Sonya d Report ? Procedure Note Duncan Herrera MD - 11/15/2020 EXAM: PET/CT SCAN/PET/CT SKULL BASE TO PA EX. D/ (0740) CLINICAL INFORMATION: C34.90 PRIMARY MALIGNANT NEOPLASM OF REINALDO NG UNSPECIFIED LATERALITY RESTAGING METASTATIC LUNG CANCER. NEW L IVER LESION ON RECENT CT AT [facility]. ?METASTASIS PET/CT SKULL BASE TO MID-THIGH Signs and Symptoms/Comments: C34.90 JALEN PATRICE MALIGNANT NEOPLASM OF LUNG, UNSPECIFIED LATERALITY, RESTAGING METASTATIC LUNG CANCER. NEW LIVER LESION ON RECENT CT AT [facility]. ?M ETASTASIS Comparison: CT chest abdomen pelvis on 10/31/2020, 08/10/2020, 05/11/2020, 07/22/2018. Technique: 100 minutes following the IV injection of 19.08 mCi of G19-thzqbkpacpxgirhqcg, PET imaging was performed from the skull [...] convincing ev idence of osseous metastatic disease. Instructional Materials Director measurements as follows: * Background liver uptake: [...] MD CC: Transcribed Date/Time: 11/15/2020 (824 ) Marketing Strategy Manager: Printed Date/Time: 11/15/2020 (824) PAGE 2 Signed Report Performing Organization Address City/State/ZIP Code Phon e Number [facility] documented in this encounter Visit Diagnoses Not on filedocumented in this encounter Care Teams Diesel Service Apprentice Relationship Specialty Start Date End Date Soila Faustin PCP - General Internal Medicine - Primary 02/06/20 [address] [place] [address] documented as of this encounter
--- OUTSIDE RECORDS SUMMARY | 2022-03-28 01:23 | XMS_ITS | Encounter Summary ---
:1945 Author Organization [facility] Address [address] [place] [address] Care Team Providers Name Role Phone Soila Faustin Primary Care Provider Reason for Visit Reason Onset Date Comments Nausea 06/14/2020 Encounter Details Date Type Department Care Team Description 06/14/2020 Telephone [facility] [place]eep Kelley MD Nause[place] Adult Hematology & O ncology 130 [facility] [address] [facility] [address] [place], [place] [address] [place] [phone] (Wo rk) Social History Tobacco Use Types Packs/Day Years Used Date Current Every Day Smoker Cigarettes 0.5 50 Smokeless Tobacco: Never Used Alcohol Use Standard Drinks/Week Comments No 0 (1 standard drink = 0.6 oz pure alcoho l) Sex Assigned at Date Recorded Not on file documented as of this encounter Miscellaneous Notes Telephone Encounter - Ishaan Zhao RN - 06/14/2020 2359 EDT Bette, nurse from [facility] called to report Madelin is complaining of [...] Continue antiemetics. 06/14/20 13:21 Called Orin Schreiber, RESEARCH SOFTWARE ENGINEER @ [facility], left a detailed message informing her of [...] on filedocumented in this encounter Care Teams Linux Consultant Relationship Specialty Start Date End Date Soila Faustin PCP - General Internal Medicine - Primary 02/06/20 [address] [place] [address] documented as of this encounter
--- OUTSIDE RECORDS SUMMARY | 2022-03-28 01:23 | XMS_ITS | Encounter Summary ---
:1945 Author Organization [facility] Address [address] [place] [address] Care Team Providers Name Role Phone Unavailable Primary Care Provider Unavailable Encounter Details Date Type Department Care Team Description 04/27/2007 Results Only [facility] - Deric Rosa, thompson MD 111 [facility] [address] [place] [address] [address] [place] [address] (Wo rk) Social History Tobacco [...] City/State/ZIP Code Phon e Number [facility] [address] [place] [address] SERVICES [facility] [address] [place] [address] (ABNORMAL) IRON (04/27/2007 15:30 EDT) Pathologist Sig nature Iron 29 (L) 60 - 180 ug/dl [facility] Specimen Performing Organization Address City/State/ZIP Code Phon e Number [facility] [address] [place] [address] SERVICES [facility] [address] [place] [address] FERRITIN (04/27/2007 15:30 EDT) Pathologist Sig nature Ferritin 67 10 - 291 ng/mL [facility] Specimen Performing Organization Address City/[facility]/ZIP Code Phon e Number [facility] [address] [place] [address] SERVICES [facility] [address] [place] [address] documented in this encounter Visit Diagnoses Not on filedocumented in this encounter
--- OUTSIDE RECORDS SUMMARY | 2022-03-28 01:23 | XMS_ITS | Encounter Summary ---
:1945 Author Organization [facility] Address [address] [place] [address] Care Team Providers Name Role Phone Soila Faustin Primary Care Provider Reason for Visit Reason Onset Date Comments Other 02/21/2021 update Encounter Details Date Type Department Care Team Description 02/21/2021 Telephone [facility] - [facility] Hardeep Kelley MD Other (update) Adult Hematology & O ncology 130 [facility] 130 [facility] [address]2 [facility] [address] [place] [address] [place] [address] (Wo rk) Social History Tobacco Use Types Packs/Day Years Used Date Current Every Day Smoker Cigarettes 0.5 50 Smokeless Tobacco: Never Used Alcohol Use Standard Drinks/Week Comments No 0 (1 standard drink = 0.6 oz pure alcoho l) Sex Assigned at Date Recorded Not on file documented as of this encounter Miscellaneous Notes Telephone Encounter - Joann Bryan - 02/21/2021 6246 EDT Orin from [facility] called to give you an update. She saw the pt yesterday (02/20/21) and discussed resuming Keytruda. The also talked about palliatiave care and at this point she is not having treatment.Orin also spoke to pt's PCP. Orin said you can call her on her cell to discuss and she can give you better and more details. Her cell [phone]. documented in this encounter Plan of Treatment Not on filedocumented as of this encounter Visit Diagnoses Not on filedocumented in this encounter Care Teams Die Keeper Relationship Specialty Start Date End Date Soila Faustin PCP - General Internal Medicine - Primary 02/06/20 [address] [place] [address] documented as of this encounter
--- OUTSIDE RECORDS SUMMARY | 2022-03-28 01:23 | XMS_ITS | Encounter Summary ---
:1945 Author Organization [facility] Address [address] [place] [address] Care Team Providers Name Role Phone Unavailable Primary Care Provider Unavailable Encounter Details Date Type Department Care Team Description 01/30/2020 Abstract [facility] Delta Caba MD Integrative [facility] - [address] [place] [address] [phone] Social History Tobacco Use Types Packs/Day Years [...]
--- OUTSIDE RECORDS SUMMARY | 2022-03-28 01:23 | XMS_ITS | Encounter Summary ---
:1945 Author Organization [facility] Address [address] [place] [address] Care Team Providers Name Role Phone Unavailable Primary Care Provider Unavailable Encounter Details Date Type Department Care Team Description 04/06/2018 Results Only [facility]- PRISM Angel Bush MD PhD [phone] 111 [facility] [address] [place] [address] (Wo rk) Social History Tobacco [...] Routine 04/06/2018 12:19 Resu lts for this [facility] EDT procedure are i n the results section. documented in this encounter Results MET FISH TESTING AT [facility] (04/06/2018 12:19 EDT) MET FISH Result See Pathology [facility] Scanned Report in LABORATORY SERVICES RUIZ.Comment: Assayed by [facility], [place], [place] Specimen Other Performing Organization Address City/State/ZIP Code Phon e Number [facility] [address] [place] [address] SERVICES documented in this encounter Visit Diagnoses Not on filedocumented in this encounter
--- OUTSIDE RECORDS SUMMARY | 2022-03-28 01:23 | XMS_ITS | Encounter Summary ---
:1945 Author Organization [facility] Address [address] [place] [address] Care Team Providers Name Role Phone Soila Faustin Primary Care Provider Encounter Details Date Type Department Care Team Description 02/07/2020 Travel Social History Tobacco Use Types Packs/Day Years [...] on filedocumented in this encounter Care Teams Loom Cleaner Relationship Specialty Start Date End Date Soila Faustin PCP - General Internal Medicine - Primary 02/06/20 [address] [place], [place] [address] documented as of this encounter
--- OUTSIDE RECORDS SUMMARY | 2022-03-28 01:23 | XMS_ITS | Encounter Summary ---
:1945 Author Organization [facility] Address [address] [place] [address] Care Team Providers Name Role Phone Soila Faustin Primary Care Provider Reason for Visit Reason Onset Date Comments Other 03/07/2021 call/discussion Encounter Details Date Type Department Care Team Description 03/07/2021 Telephone [facility] - Hardeep Bella, Ot her (call/discussion) [facility] [place] Hematology & MD Oncology 130 [facility], [address] [place] [address]., [facility] [address] [place] [address] [address] [place] [address] Social History Tobacco Use Types [...] on filedocumented in this encounter Care Teams Corn Husk Baler Relationship Specialty Start Date End Date Soila Faustin PCP - General Internal Medicine - Primary 02/06/20 [address] [place] [address] documented as of this encounter
--- OUTSIDE RECORDS SUMMARY | 2022-03-28 01:23 | XMS_ITS | Encounter Summary ---
:1945 Author Organization [facility] Address [address] [place] [address] Care Team Providers Name Role Phone Unavailable Primary Care Provider Unavailable Encounter Details Date Type Department Care Team Description 01/02/2009 Before PRISM [facility] - Darvin Mendez Converted Visit Maple thompson Pimentel MD (Maple) [address] [address] [address] [place] [address] (Wo rk) Social History Tobacco [...] Organization Address City/State/ZIP Code Phon e Number [facility] [address] [place] [address] SERVICES [facility] [address] [place] [address] documented in this encounter Visit Diagnoses Not on filedocumented in this encounter
--- OUTSIDE RECORDS SUMMARY | 2022-03-28 01:23 | XMS_ITS | Encounter Summary ---
:1945 Author Organization [facility] Address [address] [place] [address] Care Team Providers Name Role Phone Unavailable Primary Care Provider Unavailable Encounter Details Date Type Department Care Team Description 04/29/2018 Results Only Imaging [facility]- Sundeep Mendez is RUIZ Pimentel MD [phone] 7[address] [facility] [address] [place] [address] (Wo rk) Social History Tobacco [...] Anatomical Region Laterality Modality Other Specimen Narrative [facility] - 04/29/2018 15:[address] EYE TO THIGH 04/29/2018 12:59 PM Signs and Symptoms: ??NEW LLL LUNG CA NM PET EYE TO THIGH ASSESS FOR METS Comparison: The chest CT obtained February 262017 Technique: Approximately 91 minutes following the I V injection of 9.02 mCi of Z49-fgkuuglbxsvthrjotj, 3D TOF PET imagi ng was obtained [...] I V injection of 9.02 mCi of H99-mkifstovygqirozcbb, 3D TOF PET imagi ng was obtained from the skull base through the upper thighs. Att enuation correction was provided using a [employer] digital PET/CT dedicated closed ring PET / [...] Organization Address City/State/ZIP Code Phon e Number [facility] documented in this encounter Visit Diagnoses Not on filedocumented in this encounter
--- OUTSIDE RECORDS SUMMARY | 2022-03-28 01:23 | XMS_ITS | Encounter Summary ---
:1945 Author Organization [facility] Address [address] [place] [address] Care Team Providers Name Role Phone Rene Walker MD Primary Care Provider Unavailable Reason for Visit Reason Comments New Patient Visit left foot/toes red, swelling , painful, ult first Encounter Details Date Type Department Care Team Description 11/23/2013 Office Visit [facility] Demetrice Patrick Pai n in limb (Primary Vascular Surgery - Dx) [address] [address] [facility] [phone] [facility] Level [address] [place] [address] (Wo rk) Social History Tobacco [...] here. She has not been to a basketball assembler as yet, but we did go over [...] pay well for her to visit a basketball assembler at some point. From a circulatory standpoint, [...] daily. added in this encounter Care Teams Social Media Intern Relationship Specialty Start Date End Date Rene Walker MD PCP - General 11/22/1303/31/18 documented as of this encounter
--- OUTSIDE RECORDS SUMMARY | 2022-03-28 01:23 | XMS_ITS | Encounter Summary ---
:1945 Author Organization [facility] Address [address] [place] [address] Care Team Providers Name Role Phone Soila Faustin Primary Care Provider Reason for Visit Reason Onset Date Comments Other 01/29/2021 appt type question Encounter Details Date Type Department Care Team Description 01/29/2021 Telephone [facility] - Hardeep Bella Ot her (appt type [facility] Adult Hematology & MD question) Oncology [address] [facility], [address] [place] [address]., [facility] 1-2 [place] [address] [address] [place] [address] Social History Tobacco Use Types [...] Encounter - Maura Dorantes RN - 01/29/2021 0998 EDT JAY - Please change appt. To [...] on filedocumented in this encounter Care Teams Dealer Development Manager Relationship Specialty Start Date End Date Soila Faustin PCP - General Internal Medicine - Primary 02/06/20 4 [place] [address] documented as of this encounter
--- OUTSIDE RECORDS SUMMARY | 2022-03-28 01:23 | XMS_ITS | Encounter Summary ---
:1945 Author Organization [facility] Address [address] [place] [address] Care Team Providers Name Role Phone Unavailable Primary Care Provider Unavailable Reason for Visit Reason Onset Date Comments Other 01/26/2020 Covid 19 call center Encounter Details Date Type Department Care Team Description 01/26/2020 Telephone [facility] - Felisa Zapata, [facility] er (Covid 19 call [facility] Family Medicine - RN ana glasgow) [place] [address], [place] [address] [place], [place] [id number] Social History Tobacco Use Types Packs/Day Years [...] 1347 EDT This patient is calling the [facility] COVID-19 information center with concern for COVID-19. The patient has had achiness and fever for > 10 days. Fever at oncology today 100.4 COVID-19 testing is indicated according to current [facility] algorithm. The patient has been previously tested for Covid-19. 01/16/2020 negative test results. (if yes - list date of testing) Patient is not a health care worker. Patient is immunocompromised. Bilateral Lung CA - Chemo in progress The patient is not a resident of a detention or assisted living facility. (If patient is, home health will facilitate testing once ordered). Pt lives in [facility] is closer for testing. Per Nora La she should speak with PCP to get assistance for testing at [facility]. Feels like sheshould not wait to be re-tested. Patient notified. Verbalized understanding of instructions. documented in this encounter Plan of Treatment Not on filedocumented as of this encounter Visit Diagnoses Not on filedocumented in this encounter
--- OUTSIDE RECORDS SUMMARY | 2022-03-28 01:23 | XMS_ITS | Encounter Summary ---
:1945 Author Organization [facility] Address [address] [place] [address] Care Team Providers Name Role Phone Soila Faustin Primary Care Provider Reason for Visit Reason Onset Date Comments Orders (Non Pre-visit) 01/25/2021 PET scan order Encounter Details Date Type Department Care Team Description 01/25/2021 Telephone [facility] - Haredep Bella Or ders (Non Pre-visit) [facility] Adult Hematology & MD (PET scan order) Oncology [address] [facility], [address] [facility] [address] [place] [address] [address] [place] [address] Social History Tobacco Use Types [...] Bryan - 01/25/2021 0904 EDT Tina from [facility] called, she said Dr Bella spoke with Orin and pt will need a PET scan scheduled for 01/29/21. Please add the PET scan order. documented in this encounter Plan of Treatment Not on filedocumented as of this encounter Visit Diagnoses Diagnosis Primary malignant neoplasm of lung, unsp ecified laterality (HCC-CMS) (HCC) - Primary documented in this encounter Care Teams Gear Tester Relationship Specialty Start Date End Date Soila Faustin PCP - General Internal Medicine - Primary 02/06/20 4 BLA[address] TIMMONS [facility] [place] [address] documented as of this encounter
--- OUTSIDE RECORDS SUMMARY | 2022-03-28 01:23 | XMS_ITS | Encounter Summary ---
:1945 Author Organization [facility] Address [address] [place] [address] Care Team Providers Name Role Phone RaminSoila Primary Care Provider Reason for Visit (Routine/Next Available) - Receiving Office to Obtain Authorization Specialty Diagnoses / Procedures Referred By Contact Refer red To Contact Procedures Unknown, Provider, XR OUTSIDE IMAGES CHEST Phone: Referral ID Status Reason Start Expiration Visits Visits Date Date Requested Authorized [id number] Receiving Office 1 to Obtain 1 Authorization Encounter Details Date Type Department Care Team Description 08/07/2021 Hospital Encounter [facility] Secondary Reads [place] Social History Tobacco [...] on filedocumented in this encounter Care Teams Field Training Manager Relationship Specialty Start Date End Date Soila Faustin PCP - General Internal Medicine - Primary 02/06/20 [address] [place] [address] documented as of this encounter
--- OUTSIDE RECORDS SUMMARY | 2022-03-28 01:23 | XMS_ITS | Encounter Summary ---
:1945 Author Organization [facility] Address [address] [place] [address] Care Team Providers Name Role Phone Unavailable Primary Care Provider Unavailable Reason for Visit Reason Onset Date Comments Fever 04/04/2018 Encounter Details Date Type Department Care Team Description 04/04/2018 Telephone [facility] Radiology Christina Perez MD [facility] [address] [facility] 111 [facility] [address] [place] [address] BECCA MCDONOUGH [phone] Social History Tobacco Use Types Packs/Day Years Used Date Current Every Day Smoker Cigarettes 0.5 50 Alcohol Use Standard Drinks/Week Comments Not Asked 0 (1 standard drink = 0.6 oz pure alcoho l) Sex Assigned at Date Recorded Not on file documented as of this encounter Miscellaneous Notes Telephone Encounter - Christina Degroot MD - 04/04/[address] Degroot spoke with Ms. Arguelles [...]
--- OUTSIDE RECORDS SUMMARY | 2022-03-28 01:23 | XMS_ITS | Encounter Summary ---
:1945 Author Organization [facility] Address [address] [place] [address] Care Team Providers Name Role Phone Soila Faustin Primary Care Provider Encounter Details Date Type Department Care Team Description 09/05/2019 Lab Requisition [facility] Unknown, Provider, Pathology & Laboratory [facility] [address] [place] [address] [place], [place] [address] Social History Tobacco Use Types Packs/Day Years [...] Vitamin B12 556 211 - 911 pg/mL [facility] Specimen Blood - Venous blood (substance) Performing Organization Address City/State/ZIP Code Phon e Number [facility] [address] [place] [address] SERVICES documented in this encounter Visit Diagnoses Not on filedocumented in this encounter Care Teams Smoking Pipe Maker Relationship Specialty Start Date End Date Soila Faustin PCP - General Internal Medicine - Primary 02/06/20 [address] [place] [address] documented as of this encounter
--- OUTSIDE RECORDS SUMMARY | 2022-03-28 01:23 | XMS_ITS | Encounter Summary ---
:1945 Author Organization [facility] Address [address] [place] [address] Care Team Providers Name Role Phone Unavailable Primary Care Provider Unavailable Encounter Details Date Type Department Care Team Description 06/26/2018 Results Only [facility] Unknown, Provider, (Wo rk) Social [...] EDT) Creatinine, i-STAT 0.8 0.6 - 1.3 [facility] mg/dl LABORATORY cable splicer apprentice ID [id number]: [facility] Test performed by LABORATORY Radiology SERVICES Imaging. Specimen Blood Performing Organization Address City/State/ZIP Code Phon e Number [facility] [address] [place] [address] SERVICES documented in this encounter Visit Diagnoses Not on filedocumented in this encounter
--- OUTSIDE RECORDS SUMMARY | 2022-03-28 01:23 | XMS_ITS | Encounter Summary ---
:1945 Author Organization [facility] Address [address] [place] [address] Care Team Providers Name Role Phone Soila Faustin Primary Care Provider Encounter Details Date Type Department Care Team Description 01/18/2020 Lab Requisition [facility] Clyde Hamm do, MD Encounter for other Pathology & [address] [facility] general examination Laboratory Medicine General acute hospital [phone] [place] [address] [place] [address] Social History Tobacco Use Types Packs/Day Years Used Date Current Every Day Smoker Cigarettes 0.5 50 Smokeless Tobacco: Never Used Alcohol Use Standard Drinks/Week Comments No 0 (1 standard drink = 0.6 oz pure alcoho l) Sex Assigned at Date Recorded Not on file documented as of this encounter Discharge Disposition Disposition Code Departure Means Destination Home or Self Long-Term documented in this encounter Plan of Treatment Not on filedocumented as of this encounter Procedures Procedure Name Priority Date/Time Associated Diagnosis Comme nts COVID-19 TEST [facility] Today 01/16/2020 22:03 Encounter for oth er LAB PCR EDT general examination COVID-19 TESTING Today 01/16/2020 22:03 Encounter for other Results for this EDT general examination procedur e are in the results section. documented in this encounter Results COVID-19 TEST [facility] LAB PCR (01/16/2020 22:03 EDT) Specimen Swab - Entire nasopharynx (body structur e) Performing Organization Address City/State/ZIP Code Phon e Number [facility] [address] [place] [address] SERVICES COVID-19 TESTING (01/16/2020 22:03 EDT) COVID-19 rt-PCR Negative Negative [place] [...] leared or approved. This test has been internally validated, but independent review and determination of emergency use authorization ??(EUA) by the FDA is pending. Performed on the [employer] 7500 Fast Performing Lab [facility] Hospital Lab [facility] Specimen Swab - Entire nasopharynx (body structur e) Performing Organization Address City/State/ZIP Code Phon e Number [facility] [address] [place] [address] SERVICES documented in this encounter Visit Diagnoses Diagnosis Encounter for other general examination documented in this encounter Care Teams Table Games Floor Supervisor Relationship Specialty Start Date End Date Soila Faustin PCP - General Internal Medicine - Primary 02/06/20 [address] [place] [address] documented as of this encounter
--- OUTSIDE RECORDS SUMMARY | 2022-03-28 01:23 | XMS_ITS | Encounter Summary ---
:1945 Author Organization Address [address] [place] [address] Care Team Providers Name Role Phone Unavailable Primary Care Provider Unavailable Encounter Details Date Type Department Care Team Description 04/29/2018 Hospital Encounter [facility] - Deric Mendez [facility] MD Mr[place] 111 [facility] [address] [place] [address] [address] [place] [phone] (Wo rk) Social History Tobacco Use Types [...]
--- OUTSIDE RECORDS SUMMARY | 2022-03-28 01:23 | XMS_ITS | Encounter Summary ---
:1945 Author Organization [facility] Address [address] [place] [address] Care Team Providers Name Role Phone Unavailable Primary Care Provider Unavailable Encounter Details Date Type Department Care Team Description 04/06/2018 Results Only Imaging [facility]- Sundeep Mendez is RUIZ Pimentel MD [phone] [facility] [address] [place] [address] (Wo rk) Social History Tobacco [...] Laterality Modality Other Specimen Narrative [facility] - 04/06/2018 14:49 EDT [...] biopsy showed adjacent perilesional hemorrhage without hemoptysis. [place] were removed, hemostasis obtained, and a sterile [...] biopsy showed adjacent perilesional hemorrhage without hemoptysis. [place] were removed, hemostasis obtained, and a sterile [...] City/State/ZIP Code Phon e Number [facility] documented in this encounter Visit Diagnoses Not on filedocumented in this encounter
--- OUTSIDE RECORDS SUMMARY | 2022-03-28 01:23 | XMS_ITS | Encounter Summary ---
:1945 Author Organization [facility] Address [address] [place] [address] Care Team Providers Name Role Phone Unavailable Primary Care Provider Unavailable Encounter Details Date Type Department Care Team Description 11/26/2006 Before [facility] Converted [facility] - Zoë Donnelly, Visit (Jaroso) [facility] [address] [place] [address] Social History Tobacco Use Types Packs/Day Years [...] pleura. HISTORY Carly Arguelles is a 61-year-old, [facility] resident, who is seen in radiation oncology [...] Donnelly MD Tomas - KKB Job ID: [id number] Document ID: [id number] cc: Juan Crabtree MD Cancer Data Registry MD Jerry Villa MD - Tomas Donnelly MD Tomas - kkb Job ID: [id number] Document ID: [id number] cc: Juan Crabtree MD Cancer Data Registry MD Jerry Vilal MD documented in this encounter Plan of Treatment Not on filedocumented as of this encounter Visit Diagnoses Not on filedocumented in this encounter
--- OUTSIDE RECORDS SUMMARY | 2022-03-28 01:23 | XMS_ITS | Encounter Summary ---
:1945 Author Organization [facility] Address [address] [place] [address] Care Team Providers Name Role Phone Unavailable Primary Care Provider Unavailable Reason for Referral Radiology Services (Routine) - Specialty Report Received Specialty Diagnoses / Procedures Referred By Contact Refer red To Contact Diagnoses Primary malignant neoplasm of lung, unspecified laterality (HCC-CMS) (HCC) Hardeep Bella MD [facility] Procedures CT CHEST W CONTRAST [address] [place], [place] [address] [place] [phone] Referral ID Status Reason Start Date Expiration Date Visits V isits Requested Authorized [id number] Specialty 10/27/2019 1 1 Report Received aboratory Services (Routine) - New Request Specialty Diagnoses / Procedures Referred By Contact Refer red To Contact Diagnoses Primary malignant neoplasm of lung, unspecified laterality (HCC-CMS) (HCC) Edema, unspecified type Hardeep Bella MD Procedures PROTEIN, TOTAL, 24 HR, URINE 130 [facility] [address] [place] [address] Referral ID Status Reason Start Date Expiration Date Visits V isits Requested Authorized [id number] New Request 10/27/2019 1 1 Reason for Visit Reason Comments Follow-up Encounter Details Date Type Department Care Team Description 10/27/2019 Office Visit [facility] - Hardeep Bella, Liz imary malignant neoplasm of lung, unspecified laterality (HCC-CMS) (Primary Dx); [facility] Hematology Edema, unspecified type & Oncology [address], [address] [place] [address] [place] [address] [place], [place] [phone] Social History Tobacco Use Types Packs/Day [...] States that she was recently admitted at [facility] in July 2019 after presenting to the [...] for her next treatment on Thursday at [facility] (10/31/19). Has an appointment with her PCP [...] bevacizumab, tolerating relatively well. Receiving this at [facility]. Recent CT c/a/p showed overall stable [...] 1. Proceed with maintenance bevacizumab 15 mg/kg f2luecy at [facility]. 2. Return for follow up in 3 [...] 24 hr, Urine Hardeep Bella MD Hematology/Oncology [facility] Cc:Orin Labow, BUSINESS DEPARTMENT CHAIR Scribe attestation: By time stamping my name [...]
--- OUTSIDE RECORDS SUMMARY | 2022-03-28 01:23 | XMS_ITS | Encounter Summary ---
:1945 Author Organization [facility] Address [address] [place] [address] Care Team Providers Name Role Phone Jerry Jauregui MD Primary Care Provider Rene Walker MD Primary Care Provider Unavailable Soila Faustin Primary Care Provider Encounter Details Date Type Department Care Team Description 07/23/2007 Before [facility] - Felicitas Jauregui MD Converted Visit Maple conversion [address] (Maple) [address] [facility] YESY [address] [place] [phone] [place] [phone] Social History Tobacco Use Types Packs/Day Years [...] 16 EDT X *[facility]* [address] [place], [place] [address] Interpreting Group: [facility] [address] [place] [address] Height: ? 64 in ( 163 cm ) S/D Pressure: Patient status: Outpatient Weight: ? 191 lb ( 86.82 kg ) BSA: ?1.92 m^2 Referring MD: ??Jerry Jauregui MD Special Needs Bus Driver: ?? Yohana Dueñas Ordering MD: ?? Jerry [...] was interpreted by [facility]. The procedure was started at 11:30:00. The [...] - 03/19/2009 X *[facility]* [address] [place] [address] Interpreting Group: [place] [address] Height: 64 in ( 163 cm ) S/D Pressure: Patient status: Outpatient Weight: 191 lb ( 86.82 kg ) BSA: 1.92 m^2 Referring MD: Jerry Jauregui MD Special Needs Bus Driver: Yohana Dhillon MD: Jerry Jauregui MD Attending [...] was interpreted by [facility]. The procedure was started at 11:30:00. The [...] Organization Address City/State/ZIP Code Phon e Number [facility] [address] [facility] [place] [address] [facility] [address] [place], [place] [address] documented in this encounter Visit Diagnoses Not on filedocumented in this encounter Care Teams Truck Crane Operator Relationship Specialty Start Date End Date Jerry Jauregui MD PCP - General 02/20/13 11/21/[address] [place] [address] Rene Walker MD PCP - General 11/22/1303/31/18 Soila Faustin PCP - General Internal Medicine - 02/06/20 4 [facility] [place] [address] documented as of this encounter
--- OUTSIDE RECORDS SUMMARY | 2022-03-28 01:23 | XMS_ITS | Encounter Summary ---
:1945 Author Organization [facility] Address [address] [place] [address] Care Team Providers Name Role Phone Soila Faustin Primary Care Provider Reason for Visit Reason Comments Telemedicine Phone Call Encounter Details Date Type Department Care Team Description 02/11/2021 Telemedicine [facility] - Hardeep Bella Pr imary malignant [facility] Adult Hematology neoplasm of lung, & Oncology 130 [facility], unspecified laterality [address] [place] [address] ([facility] (Primary Dx) [address] [place] [address] [place] [phone] [phone] Social History Tobacco Use Types Packs/Day [...] verified: Yes - recently got secondary insurance [facility]. I instructed patient to bring card with her at her next appointment in the network so we could get the information scanned into EPIC Verbal consent given by patient to continue with telemedicine visit: Yes 02/11/21 15:42 Hardeep Villa MD - 02/11/2021 1630 EDT Images from the original note were not included. [facility] Telephone Visit Verbal [...] Diagnosis ??? Malignant neoplasm of female breast ([facility]) 1997: Stage 1 Left ductal breast cancer - T1a,N0,M0,G1 - ER+/SC-. 0/12 node involvement. - Completed 5 years tamoxifen. ??? Primary malignant neoplasm of lung ([facility]) Problem 28 March 2018: Right non-small cell [...] this area. I spoke with Orin at [facility] today and discussed the above. She [...] with me. Hardeep Bella MD Hematology/Oncology [facility] Patient initiated phone contact with the office: [...] NEEDED added in this encounter Care Teams Internal Specialist Relationship Specialty Start Date End Date Soila Faustin PCP - General Internal Medicine - Primary 02/06/20 4 [place] [address] documented as of this encounter
--- OUTSIDE RECORDS SUMMARY | 2022-03-28 01:23 | XMS_ITS | Encounter Summary ---
:1945 Author Organization [facility] Address [address] [place] [address] Care Team Providers Name Role Phone Soila Faustin Primary Care Provider Reason for Visit Reason Comments Follow-up Encounter Details Date Type Department Care Team Description 04/09/2021 Office Visit [facility] - Hardeep Bella Pr imary malignant [facility] [place] Hematology neoplasm of lung, & Oncology [address] [facility], unspecified laterality [address] [place] [facility]-[facility] ([facility]) (Primary Dx) [address] [place] [address] [place] [phone] Social History Tobacco Use Types Packs/Day Years Used Date Current Every Day Smoker Cigarettes 0.5 50 Smokeless Tobacco: Never Used Alcohol Use Standard Drinks/Week Comments No 0 (1 standard drink = 0.6 oz pure alcoho l) Sex Assigned at Date Recorded Not on file documented as of this encounter Last Filed Vital Signs Vital Sign Reading Time Taken Comments Blood Pressure 124/58 04/09/2021 1345 EDT Pulse 66 04/09/2021 1345 EDT Temperature - - Respiratory Rate - - Oxygen Saturation 95% 04/09/2021 1345 EDT Inhaled Oxygen Concentration - - Weight 62.6 kg (138 lb) 04/09/2021 1345 EDT Height - - Body Mass Index 23.32 04/06/2018 1208 EDT documented in this encounter Progress Notes Román Gutierrez MA - 04/09/2021 1400 EDT Suspicion of Abuse: no - If yes, please document evidence: - Assessed on: 04/09/21 13:41 - Assessed by: ROMÁN GUTIERREZ MA Hardeep Villa MD - 04/09/2021 1400 EDT Images from the original note were not included. Patient Active Problem List Diagnosis ??? Malignant neoplasm of female breast (HCC-CMS) 1998: Stage 1 Left ductal breast cancer - T1a,N0,M0,G1 - ER+/[place]-. 012 node involvement. - Completed 5 years [...] Subjective Interim History: Patient returns for follow-up. States that she is feeling well overall. Able to take care of herself. Able to cook and shower by herself. She received immunotherapy treatment last week. Mentions that she was very upset from not getting any treatment for a couple of months. She denies any worsening shortness of breath. Denies any abdominal pain or diarrhea. Review [...] DRY EYE THERAPY OPHT) ??? predniSONE (DELTASONE) 1 mg tablet ??? prochlorperazine (COMPAZINE) 5 mg tablet ??? spironolactone (ALDACTONE) 25 mg tablet ??? torsemide (DEMADEX) 20 mg tablet ??? vit A/vit C/vit E/zinc/copper (PRESERVISION AREDS ORAL) No current facility-administered medications for this visit. Vitals: 04/09/21 1345 BP: 124/58 Pulse: 66 SpO2: 95% Weight: 62.6 kg (138 lb) Wt Readings from Last 3 Encounters: 04/09/21 62.6 kg (138 lb) 11/06/20 67.6 kg (149 lb) 08/16/20 68 kg (150 lb) Physical Exam: Physical [...] right basilar pleural effusion with a thickened rimis stable compared to recent scans. No uptake within this area. Treatment was held for a couple of months due to worsening respiratory status, depression and lethargy. This was restarted last week and she denies any issues currently. Expressed that she wants to continue treatments as long as she can handle them and prefers not to have any more interruptions. 2. Chronic pain. Currently taking MS contin 45 mg q8hrs. Plan: 1. Continue pembrolizumab treatments. 2. Plan on CT scans after 3 cycles and follow-up appointment with me. Hardeep Bella MD Hematology/Oncology /[facility] Cc:rOin Schreiber APRN, Dr. Soila Faustin documented in this encounter Plan of Treatment Not on filedocumented as of this encounter Visit Diagnoses Diagnosis Primary malignant neoplasm of lung, unsp ecified laterality (HCC-CMS) (HCC) - Primary documented in this encounter Discontinued Medications Medication Sig Discontinue Reason Start Date End Date dexAMETHasone (DECADRON) 4 1 tab(s) orally 2 04/09/2021 mg tablet times a day after chemo fluticasone propionate 2 puff(s) inhaled 04/09/2021 (FLOVENT HFA) 110 2 times a day mcg/actuation inhaler magnesium amino acid Take 54 mg by 01/08/20202020 chelate 27 mg tablet mouth 4 times daily. metoclopramide HCl TAKE 1 TABLET BY 12/05/201904/09 (REGLAN) 10 mg tablet MOUTH 30 MINUTES BEFORE MEALS meclizine (ANTIVERT) 25 mg 01/26/2020 0 04/09/2021 tablet simvastatin (ZOCOR) 20 mg Take 20 mg by 0 04/09/2021 tablet mouth at bedtime. tiotropium-olodateroL 2 puff(s) inhaled 0 04/09/2021 (STIOLTO RESPIMAT) 2.5-2.5 every 24 hours mcg/actuation inhaler documented as of this encounter Historical Medications This list may reflect changes made after this encounter. Medication Sig Dispensed Refills Start Date End Date naloxone HCl (NARCAN by nasal route as 0 NASAL) needed. Administer in both nostrils as needed polysorbate 80/glycerin Apply to eye daily. 0 (REFRESH DRY EYE THERAPY OPHT) vit A/vit C/vit Take by mouth daily. 0 E/zinc/copper (PRESERVISION AREDS ORAL) acetaminophen (TYLENOL) Take 325 mg by mouth 0 500 mg tablet every 6 hours as needed for Pain. added in this encounter Care Teams Stem Threshing Machine Operator Relationship Specialty Start Date End Date Soila Faustin PCP - General Internal Medicine - Primary 02/06/20 [address] [facility] [place] [address] documented as of this encounter
--- OUTSIDE RECORDS SUMMARY | 2022-03-28 01:23 | XMS_ITS | Encounter Summary ---
:1945 Author Organization [facility] Address [address] [place] [address] Care Team Providers Name Role Phone Unavailable Primary Care Provider Unavailable Encounter Details Date Type Department Care Team Description 06/02/2018 Results Only [facility]- Darvin Brady, 2 [facility] [address] [place] [address] (Wo rk) Social History Tobacco [...]
--- OUTSIDE RECORDS SUMMARY | 2022-03-28 01:23 | XMS_ITS | Encounter Summary ---
:1945 Author Organization [facility] Address [address] [place] [address] Care Team Providers Name Role Phone Soila Faustin Primary Care Provider Reason for Visit Reason Onset Date Comments Medications Refill 11/06/2020 Encounter Details Date Type Department Care Team Description 11/06/2020 Telephone [facility] [place]eep Kelley MD Medications Refill Adult Hematology & [address] [facility], Oncology [facility] [address] [facility] [address] [place] [address] [place], [place] [phone] (Wo rk) Social History Tobacco Use Types Packs/Day Years Used Date Current Every Day Smoker Cigarettes 0.5 50 Smokeless Tobacco: Never Used Alcohol Use Standard Drinks/Week Comments No 0 (1 standard drink = 0.6 oz pure alcoho l) Sex Assigned at Date Recorded Not on file documented as of this encounter Miscellaneous Notes Telephone Encounter - Ishaan Zhao RN - 11/06/2020 1401 EST Images from the original note were not included. Morphine Sulfate 30mg ER, 1 tab BID - Last refilled Morphine 15mg ER, 1 tab once daily (am) 11/06/20 14:06 VPMS checked Morphine has been filled by Soila Faustin (PCP) 11/06/20 14:10 Returned call to [facility], No vm set up. ESH - Last seen by Dr. Bella 08/16/20 during [facility] [place] downtime, no documentation in ov note that [...] call back. 11/07/20 11:44 Returned call to [facility], she states the nurse advised [...] take Morphine 60mg tabs. Med list updated. [facility] Hardeep Bella MD You 43 minutes ago [...] documented as of this encounter Care Teams Digital Production Manager Relationship Specialty Start Date End Date Soila Faustin PCP - General Internal Medicine - Primary 02/06/20 [address] [place] [address] documented as of this encounter
--- OUTSIDE RECORDS SUMMARY | 2022-03-28 01:23 | XMS_ITS | Encounter Summary ---
:1945 Author Organization [facility] Address [address] [place] [address] Care Team Providers Name Role Phone Soila Faustin Primary Care Provider Reason for Visit Reason Comments Follow-up Encounter Details Date Type Department Care Team Description 05/16/2020 Office Visit [facility] - Hardeep Bella, Pr imary malignant [facility] Adult Hematology neoplasm of lung, & Oncology [address], unspecified laterality [address] [place] [facility] ([facility]) (Primary Dx) [address] [place] [address] [place], [place] [phone] Social History Tobacco Use Types Packs/Day [...] ??? Malignant neoplasm of female breast ([facility]) 1997: Stage 1 Left ductal breast cancer - T1a,N0,M0,G1 - ER+/[place]-. 0/12 node involvement. - Completed 5 years tamoxifen. ??? Primary malignant neoplasm of lung (HCC-[facility]) Problem 28 March 2018: Right non-small cell [...] bevacizumab, tolerating relatively well. Receiving this at [facility]. Reviewed CT images with the patient. [...] 1. Proceed with maintenance bevacizumab 15 mg/kg a6ciunc at [facility]. 2. Continue to monitor proteinuria and blood pressure. 3. Return for follow-up in [address] scans prior. Hardeep Bella MD Hematology/Oncology [facility] Cc:Orin Schreiber APRN, Dr. Soila Faustin [...] documented as of this encounter Care Teams Payroll Officer Relationship Specialty Start Date End Date Soila Faustin PCP - General Internal Medicine - Primary 02/06/20 4 [place] [place] [facility] [place] [address] documented as of this encounter
--- OUTSIDE RECORDS SUMMARY | 2022-03-28 01:23 | XMS_ITS | Encounter Summary ---
:1945 Author Organization [facility] Address [address] [place] [address] Care Team Providers Name Role Phone Soila Faustin Primary Care Provider Encounter Details Date Type Department Care Team Description 09/05/2019 Lab Requisition [facility] Unknown, Provider, Pathology & Laboratory [facility] [address] [place] [address] [place] [address] Social History Tobacco Use Types Packs/Day Years [...] 8:30 EST) Folate >24.0 See Note ng/mL [facility] Comment: LABORATORY SERVICES Reference Ranges for Folate: Deficient: ?< 3.4 ng/mL Indeterminate: ??3.4 - 5.4 ng/mL Normal: ? > 5.4 ng/mL The results of this assay ca n be falsely elevated due to the consumption of Biotin. Specimen Blood - Venous blood (substance) Performing Organization Address City/State/ZIP Code Phon e Number [facility] [address] [place] [address] SERVICES documented in this encounter Visit Diagnoses Not on filedocumented in this encounter Care Teams Experimental [employer] Mechanic Relationship Specialty Start Date End Date Soila Faustin PCP - General Internal Medicine - Primary 02/06/20 [address] [place] [address] documented as of this encounter
--- OUTSIDE RECORDS SUMMARY | 2022-03-28 01:23 | XMS_ITS | Encounter Summary ---
:1945 Author Organization [facility] Address [address] [place] [address] Care Team Providers Name Role Phone Unavailable Primary Care Provider Unavailable Encounter Details Date Type Department Care Team Description 07/05/2018 Results Only Imaging [facility]- Sundeep Mendez is RUIZ Pimentel MD [phone] [facility] [address] [place] [address] (Wo rk) Social History Tobacco [...] Region Laterality Modality Other Specimen Narrative [facility] - 07/05/2018 13:19 EDT Vascular Diagnostic Laboratory [facility] Abalone Diver [place], [facility], Level 5 [address] [facility] [place] [address] Technologist: Sindy Doll ?Jamison Cole Fellow: IMPRESSIONS [...] MD - 07/05/2018 Vascular Diagnostic Laboratory [facility], Level [address] [place] [address] Technologist: Sindy Doll Kaleb Fellow: IMPRESSIONS 1. [...] Address City/State/ZIP Code Phon e Number [facility] documented in this encounter Visit Diagnoses Not on filedocumented in this encounter
--- OUTSIDE RECORDS SUMMARY | 2022-03-28 01:23 | XMS_ITS | Encounter Summary ---
:1945 Author Organization [facility] Address [address] [place] [address] Care Team Providers Name Role Phone Soila Faustin Primary Care Provider Reason for Visit Reason Comments Follow-up CT Scan Encounter Details Date Type Department Care Team Description 08/16/2020 Office Visit [facility] - Hardeep Bella, Pr imary malignant [facility] Adult Hematology neoplasm of lung, & Oncology [address] [facility], unspecified laterality [address], [place] [facility] ([facility]) (Primary Dx) [address] [place] [address] [place], [place] [phone] Social History Tobacco Use Types Packs/Day [...] For patients, please refer to guidance in [employer] on how to locate information. Generally this information will appear as a scanned documents saved in My Documents activity. documented in this encounter Plan of Treatment Not on filedocumented as of this encounter Visit Diagnoses Diagnosis Primary malignant neoplasm of lung, unsp ecified laterality (HCC-CMS) (HCC) - Primary documented in this encounter Care Teams Cotton Bag Sewer Relationship Specialty Start Date End Date Soila Faustin PCP - General Internal Medicine - Primary 02/06/20 [address] [place] [address] documented as of this encounter
--- OUTSIDE RECORDS SUMMARY | 2022-03-28 01:24 | XMS_ITS | CCD ---
:1945 Author Care Team Providers Name Role Phone RADHA VANN, CLEOPATRA Gómez Attending Physician Unavailable Vital Signs Unknown or Not Available. Allergies Allergy Code Allergy Type Reaction Status PENICILLINS (CLASS) 0 Drug allergy pt doesn't know Activ e TETRACYCLINE 16511 Drug allergy Active Procedures Unknown or Not Available. History of Immunizations Unknown or Not Available. Problems Problem Code Start Date Resolved Date Status CHRONIC AIRWAY OBSTRUCTION 22007532 A ctive HX OF BRONCHOGENIC MALIGNANCY 717229989 Active MULTIPLE SCLEROSIS 67720934 Active Hyperemesis 802929648 Active HTN 68616581 Active Acute respiratory failure with hypoxia 17070089 Active COPD with exacerbation 087153244 Activ e Cancer of lung 93542880 Active Acute CHF 81140728 Active Hypertension 76536186 Active Near syncope 021399379 Active Dehydration 25206845 Active High troponin I level 259949310 Active Acute exacerbation of COPD 096287064 08/07/2021 A ctive Results Unknown or Not Available. Active Medications Medication Code Dose Units Frequency Route Modification Start Date/Time predniSONE 10MG 844164 1 TABLET DAILY ORAL 08/07/20 21 Oral Tablet 15:21 Prescription Detail TAKE 5 TABS ORAL FOR 2 DAYS, THEN 4 TABS FOR 2 DAYS, THEN 3 TABS FOR 2 DAYS, THEN 2 TABS FOR 2 DAYS, THEN 1 TAB FOR 2 DAYS Ipratropium 8067585 1 NEEDED INHALATION 021 15:20 [place]-Albuterol Sulfate FOUR TIMES A 0.5MG/3ML-3MG/3ML DAY Inhalation Solution Prescription Detail 1 INHALATION NEEDED FOUR TIMES A DAY FOR Difficulty Breathing Acetaminophen 325MG 159902 650 MILLIGRAMS NEEDED ORAL 06/28/2020 09:36 Oral Tablet EVERY 4 HOURS Prescription Detail TAKE 650 MILLIGRAMS ORAL NEEDED EVERY 4 HOURS Amitriptyline HCl 50MG 166557 50 MILLIGRAMS BEDTIME ORAL 06/28/2020 09:36 Oral Tablet Prescription Detail TAKE 50 MILLIGRAMS ORAL BEDT МАРИЯ Atorvastatin Calcium 315703 20 MILLIGRAMS EVERY EVENING ORAL 06/28/2020 09:36 20MG Oral Tablet Prescription Detail TAKE 20 MILLIGRAMS ORAL EVER Y EVENING Budesonide 0.5MG/2ML 079373 1 EACH DAILY INHALATION 06/28/2020 09:36 Inhalation Suspension Prescription Detail 1 EACH INHALATION DAILY Cetirizine 10MG Oral 7396539 10 MILLIGRAMS BEDTIME ORAL 06/28/2020 09:36 Tablet Prescription Detail TAKE 10 MILLIGRAMS ORAL BEDT МАРИЯ Famotidine 20MG 940924 20 MILLIGRAMS NEEDED TWICE ORAL 06/28/2020 09:36 Oral Tablet DAILY Prescription Detail TAKE 20 MILLIGRAMS ORAL N EEDED TWICE DAILY Ipratropium 7300976 1 EACH NEEDED INHALATION 020 09:36 [place]-Albuterol Sulfate 0.5MG/3ML-3MG/3ML Inhalation Solution Prescription Detail 1 EACH INHALATION NEEDED Lidocaine-Prilocaine 067050 1 EACH NEEDED TOPICAL 1 2.5%-2.5% Topical APPLICATION 09 :36 application Cream Prescription Detail 1 EACH TOPICAL APPLICATION NEEDED Losartan Potassium 100MG 139756 100 MILLIGRAMS DAILY ORAL 06/28/2020 09:36 Oral Tablet Prescription Detail TAKE 100 MILLIGRAMS ORAL PARRIS LY Magnesium 500 MG Oral 967558 2 TABLET THREE TIMES A DAY ORAL 06/28/2020 09:36 Tablet Prescription Detail TAKE 2 TABLET ORAL THREE CELSO ES A DAY Morphine Sulfate 60MG 009784 60 MILLIGRAMS TWICE A DAY ORAL 06/28/2020 09:36 Oral Capsule, Extended Release Prescription Detail TAKE 60 MILLIGRAMS ORAL TWIC E A DAY Narcan 4MG/0.1ML Nasal [place] 7630741 1 EACH NEEDED NASAL 06/28/2020 09:36 Prescription Detail SPRAY 1 EACH NASAL NEEDED Omeprazole 40MG Oral 20021106 40 MILLIGRAMS DAILY ORAL 06/28/2020 09:36 Capsule, Delayed Release Prescription Detail TAKE 40 MILLIGRAMS ORAL BETTY Y Ondansetron 4MG Oral Tablet 873359 1 TABLET DAILY ORAL 06/28/2020 09:36 Prescription Detail TAKE 1 TABLET ORAL DAILY Polyethylene Glycol 75079132063 1 EACH NEEDED DAILY ORAL 06/28/2020 09:36 17GM/1Dose Oral Powder for Solution Prescription Detail TAKE 1 EACH ORAL NEEDED D AILY PreserVision Areds 2 NA 58795547499 2 CAPSULE DAILY ORAL 06/28/2020 09:36 Oral Capsule, Liquid Filled Prescription Detail TAKE 2 CAPSULE ORAL DAILY ProAir HFA 297284 2 PUFF NEEDED INHALATION 06/28/20 09:36 0.09MG/1Actuation THREE TIMES A Inhalation Suspension DAY Prescription Detail 2 PUFF INHALATION NEEDED THREE TIMES A DAY Pulmicort Flexhaler 795500 2 PUFF TWICE A DAY INHALATION 06/28/2020 09:36 90MCG/1Act Inhalation Powder Prescription Detail 2 PUFF INHALATION TWICE A D AY Spironolactone 25MG Oral 813640 25 MILLIGRAMS DAILY ORAL 06/28/2020 09:36 Tablet Prescription Detail TAKE 25 MILLIGRAMS ORAL BETTY Y Torsemide 20MG Oral Tablet 870754 1 TABLET DAILY ORAL 06/28/2020 09:36 Prescription Detail TAKE 1 TABLET ORAL DAILY Vitamin D3 184731 6168 INTERNATIONAL UNITS DAILY ORAL 1 09:36 1000IU Oral Tablet Prescription Detail TAKE 1000 INTERNATIONAL UNIT S ORAL DAILY Ondansetron 4MG Oral 949670 4 MILLIGRAMS BEFORE MEALS ORAL 06/28/2020 09:35 Tablet, Disintegrating Prescription Detail TAKE 4 MILLIGRAMS ORAL BEFOR E MEALS predniSONE 5MG Oral 152854 5 MILLIGRAMS DAILY WITH FOOD ORAL 06/28/2020 09:35 Tablet Prescription Detail TAKE 5 MILLIGRAMS ORAL DAILY WITH FOOD Refresh Ophthalmic 376807 1 EACH NEEDED OPTHALMIC 0 10/20/2019 12:16 Solution Prescription Detail 1 EACH OPTHALMIC NEEDED Avastin 25MG/1ML Intravenous 9032918 [id number] IVPB 10/20/2019 12:15 Solution Prescription Detail IVPB [id number] Mapap 325MG Oral 493793 650 MILLIGRAMS NEEDED EVERY ORAL 10/20/2019 12:14 Tablet 4 HOURS Prescription Detail TAKE 650 MILLIGRAMS ORAL NEEDED EVERY 4 HOURS amLODIPine Besylate 10MG 468582 10 MILLIGRAMS DAILY ORAL 08/06/2019 11:13 Oral Tablet Prescription Detail TAKE 10 MILLIGRAMS ORAL BETTY Y Aspirin 81MG Oral Tablet, 459515 81 MILLIGRAMS DAILY ORAL 08/16/2018 10:22 Enteric Coated Prescription Detail TAKE 81 MILLIGRAMS ORAL BETTY Y Cymbalta 60MG Oral Capsule, 583932 60 MILLIGRAMS DAILY ORAL 08/16/2018 10:22 Delayed Release Prescription Detail TAKE 60 MILLIGRAMS ORAL BETTY Y Medications Administered During Visit Unknown or Not Available. Encounters Encounter Diagnosis Diagnosis Code Start Date Procedure and treatment not carried out because of Z5329 03/20/2021 patient's decision for other reasons Social History Smoking Status Code Start Date End Date Current every day smoker 605744198 Patient Decision Aids Unknown or Not Available. Discharge Instructions You were admitted to [facility] on 03/20/2021 09:16 with a principal diagnosis of Procedure and treatment not carried out because of patient's decision for other reasons You were discharged from [facility] on 03/20/2021 09:16 Should you have [...]
--- OUTSIDE RECORDS SUMMARY | 2022-03-28 01:24 | XMS_ITS | Encounter Summary ---
:1945 Author Organization [facility] Address [address] [place] [address] Care Team Providers Name Role Phone Unavailable Primary Care Provider Unavailable Encounter Details Date Type Department Care Team Description 02/06/2006 Hospital Encounter [facility] - Deric Mendez MD [address] [facility] [address] [place] [address] [address] [place] [phone] (Wo rk) Social History Tobacco Use Types Packs/Day Years Used Date Never Assessed Sex Assigned at Date Recorded Not on file documented as of this encounter Discharge Disposition Disposition Code Departure Means Destination Home or Self Care documented in this encounter Plan of Treatment Not on filedocumented as of this encounter Procedures Procedure Name Priority Date/Time Associated Diagnosis Comme nts CHEST PA 09/10/2006 13:12 Results for this EST procedure are i n the results section. CHEST PA 02/17/2006 17:00 Results for this EDT procedure are i n the results section. CT GUIDE 02/17/2006 14:56 Results for this BIOPSY/ASPIR/INJECT EDT procedur e are in the results section. PROTIME Routine 02/06/2006 12:00 Results for this EDT procedure are i n the results section. documented in this encounter Results CHEST PA (09/10/2006 13:12 EST) Anatomical Region Laterality Modality Other Specimen Narrative [facility] - 04/07/2009 3: 47 EDT RIGHT LUNG BIOPSY R/O PTX SINGLE PA EXPIRATORY CHEST FILM, ONE VIE W: 09/10/06. 1308. CLINICAL HISTORY: Status post lung biops y, rule out pneumothorax. FINDINGS: ??There is no evidence of pneu mothorax or hemothorax after right lung biopsy. D: ??09/10/06 T: ??09/11/06 /lds. Procedure Note Jacinto Martinez MD - 04/07/2009 RIGHT LUNG BIOPSY R/O PTX SINGLE PA EXPIRATORY CHEST FILM, ONE VIE W: 09/10/06. 1308. CLINICAL HISTORY: Status post lung biops y, rule out pneumothorax. FINDINGS: There is no evidence of pneumo thorax or hemothorax after right lung biopsy. /lds. Performing Organization Address [facility] Code Phon e Number [facility] [address] [facility], [place] [address] [address] CHEST PA (02/17/2006 17:00 EDT) Anatomical Region Laterality Modality Other Specimen Narrative [facility] - 04/14/2009 13 :57 EDT RIGHT LUNG BIOPSY NODULE R/O PNEUMOTHORAX PORTABLE CHEST: 02/17/2006 CLINICAL HISTORY: Right lung biopsy nodule, evaluate for pneumothorax. FINDINGS: A single portable view of the chest dean ws a focal nodule opacity on the left side, likely the known nodule. ??There is no obvious pneumothorax. IMPRESSIONS: No obvious pneumothorax status post bio psy. /tns Procedure Note Sally Doe MD - 04/14/2009 RIGHT LUNG BIOPSY NODULE R/O PNEUMOTHOR AX PORTABLE CHEST: 02/17/2006 CLINICAL HISTORY: Right lung biopsy nodule, evaluate for pneumothorax. FINDINGS: A single portable view of the chest dean ws a focal nodule opacity on the left side, likely the known nodule. There is no obvious pneumothorax. IMPRESSIONS: No obvious pneumothorax status post bio psy. /tns Performing Organization Address [facility] Code Phon e Number [facility] [address] [facility] [address] GUIDE BIOPSY/ASPIR/INJECT (02/17/2006 14:56 EDT) Anatomical Region Laterality Modality Other Specimen Narrative [facility] - 04/14/2009 14 :[address] GUIDED RIGHT LOWER LOBE BIOPSY CT BIOPSY OF A RIGHT LOWER LOBE LUNG NOD ULE: 02/17/2006 CLINICAL HISTORY: Prior stage 1 breast cancer with smokin g history and newly detected nodules seen on outside examinations don e for abdominal discomfort. TECHNIQUE: After a detailed explanation of the ris ks and benefits of the procedure as well as alternative diagnos tic methods including no further diagnostic procedures, informed consent was obtained from the patient. ??A history and physical examin ation were performed for the purposes of administering conscious hitesh tion which was given during the procedure. The patient was placed in the prone posi tion on the CT table. ??A preliminary series of scans through the entire thorax were obtained. These demonstrate that there are at leas t 4 nodules seen within the lungs. The largest of these is the 8-mm nodule in the right lower lobe of lung posteriorly. ??There is an additional nodule seen within the right lower lobe of lung which measu res perhaps 1 to 2 mm seen inferior to the larger 8-mm nodule, also within the right lower lobe. There is an additional nodule seen in th e left lung, one within the lingula seen on the outside CT and measu ring approximately 7 mm in diameter and then a fourth nodule within the left upper lobe on lung, somewhat irregular in shape, measuring a bout 4 mm in diameter. With the patient breath-holding, an appropria te needle entry site was chosen by us of the CT gantry laser ligh t and then the skin was marked and prepped and draped in a steri le manner. ??After lidocaine had been administered and a small skin i ncision made, an 8-cm long fydkk-jjdg-cvyglz needle was advanced in to the skin and into the right lower lobe nodule and multiple asp irates obtained. ??A small amount of hemorrhage and hemoptysis was incurred by the patient and a very small loculated pneumothorax was se en at the end of the procedure. The patient tolerated the procedure well and there were no other complications encountered. IMPRESSION: Successful CT- guided aspiration biopsy of an 8-mm right lower lobe nodule. ??A small amount of hemorrhage a nd a small pneumothorax was seen to complicate the procedure. Incidental findings of note are a nonuni on of old lower left rib fracture. /tns Procedure Note Jacinto Martinez MD - 04/14/2009 CT GUIDED RIGHT LOWER LOBE BIOPSY CT BIOPSY OF A RIGHT LOWER LOBE LUNG NOD ULE: 02/17/2006 CLINICAL HISTORY: Prior stage 1 breast cancer with smokin g history and newly detected nodules seen on outside examinations don e for abdominal discomfort. TECHNIQUE: After a detailed explanation of the ris ks and benefits of the procedure as well as alternative diagnos tic methods including no further diagnostic procedures, informed consent was obtained from the patient. A history and physical examinat ion were performed for the purposes of administering conscious hitesh tion which was given during the procedure. The patient was placed in the prone posi tion on the CT table. A preliminary series of scans through the entire thorax were obtained. These demonstrate that there are at leas t 4 nodules seen within the lungs. The largest of these is the 8-mm nodule in the right lower lobe of lung posteriorly. There is an ad ditional nodule seen within the right lower lobe of lung which measu res perhaps 1 to 2 mm seen inferior to the larger 8-mm nodule, also within the right lower lobe. There is an additional nodule seen in th e left lung, one within the lingula seen on the outside CT and measu ring approximately 7 mm in diameter and then a fourth nodule within the left upper lobe on lung, somewhat irregular in shape, measuring a bout 4 mm in diameter. With the patient breath-holding, an appropria te needle entry site was chosen by us of the CT gantry laser ligh t and then the skin was marked and prepped and draped in a steri le manner. After lidocaine had been administered and a small skin i ncision made, an 8-cm long gqorn-qwoy-uhafvv needle was advanced in to the skin and into the right lower lobe nodule and multiple asp irates obtained. A small amount of hemorrhage and hemoptysis was incurred by the patient and a very small loculated pneumothorax was se en at the end of the procedure. The patient tolerated the procedure well and there were no other complications encountered. IMPRESSION: Successful CT- guided aspiration biopsy of an 8-mm right lower lobe nodule. A small amount of hemorrhage and a small pneumothorax was seen to complicate the procedure. Incidental findings of note are a nonuni on of old lower left rib fracture. /tns Performing Organization Address City/State/ZIP Code Phon e Number [facility] [address] [facility] [place] [address] [facility] [address] [place], [place] [address] PROTIME (02/06/2006 12:00 EDT) Pro Time 13.1 12.0 - 15.0 [facility] secs I.N.R. 1.0 0.9 - 1.1 [facility] Comment: Ratio Moderate Intensity Coumadin INR = 2.0-3.0 Adjustments in anticoagulant therapy dose should be based upon the INR and NOT the Pro Time. Specimen Performing Organization Address City/State/ZIP Code Phon e Number [facility] [address] [place] [address] SERVICES [facility] [address] [place] [address] documented in this encounter Visit Diagnoses Not on filedocumented in this encounter
--- OUTSIDE RECORDS SUMMARY | 2022-03-28 01:24 | XMS_ITS | Encounter Summary ---
:1945 Author Organization [facility] Address [address] [place] [address] Care Team Providers Name Role Phone Unavailable Primary Care Provider Unavailable Encounter Details Date Type Department Care Team Description 09/24/2006 Hospital Encounter [facility] - Angel Tay MD [address] [phone] (Wo rk) Social History Tobacco Use Types [...]
--- OUTSIDE RECORDS SUMMARY | 2022-03-28 01:24 | XMS_ITS | Encounter Summary ---
:1945 Author Organization [facility] Address [address] [place] [address] Care Team Providers Name Role Phone Unavailable Primary Care Provider Unavailable Encounter Details Date Type Department Care Team Description 06/24/2002 Hospital Encounter [facility]- Carey Howell MD [id number] [place] [phone] (Wo rk) Social History Tobacco Use Types [...]
--- OUTSIDE RECORDS SUMMARY | 2022-03-28 01:24 | XMS_ITS | Encounter Summary ---
:1945 Author Organization [facility] Address [address] [place] [address] Care Team Providers Name Role Phone Unavailable Primary Care Provider Unavailable Encounter Details Date Type Department Care Team Description 02/17/2006 Results Only [facility] - Deric Rosa, conversion MD [address] [facility] [address] [place] [address] [address] [place] [phone] (Wo rk) Social History Tobacco [...] ? CARLY ALVARADO ? Accession #: ? [id number] : ? 1945 (Age: 60) ??F ?Collect Date: ? 01/27 Location: ? RAD ? Receive Date: ? 02/18/2006 Provider: ? FELIZ STOUT MD Copy to: ?JANUARY CALDERÓN MD DAMON I* BELLE STOUT MD ? Fine Needle Aspiratio n/Core Biopsy (Assisted) ? Radiology Department, [place] [address] ([facility]) ? CYTOLOGIC DIAGNOSIS: ? Lung, right lower lobe nodule, CT-guided fine n eedle aspiration: - Non-diagnostic pattern. ??See comment. ? COMMENT: ? The specimen consists predominantly of blood an d hemosiderin-laden macrophages with rare benign bronchial e pithelial cells present and occasional discohesive, mucinous-type, bland-appearing epithelial cells seen on the ThinPrep slide. ??The low cellularity pr ecludes a definitive diagnosis. ??(Dr. López)/[facility] Document reviewed and electronically signed by: [...] Code Phon e Number [facility] [address] [place] [address] SERVICES [facility] [address] [place] [address] documented in this encounter Visit Diagnoses Not on filedocumented in this encounter
--- OUTSIDE RECORDS SUMMARY | 2022-03-28 01:24 | XMS_ITS | CCD ---
:1945 Author Care Team Providers Name Role Phone RADHA VANN, CLEOPATRA Gómez Attending Physician Unavailable Vital Signs Unknown or Not Available. Allergies Allergy Code Allergy Type Reaction Status PENICILLINS (CLASS) 0 Drug allergy pt doesn't know Activ e TETRACYCLINE 82561 Drug allergy Active Procedures Unknown or Not Available. History of Immunizations Unknown or Not Available. Problems Problem Code Start Date Resolved Date Status CHRONIC AIRWAY OBSTRUCTION 56360966 A ctive HX OF BRONCHOGENIC MALIGNANCY 287674756 Active MULTIPLE SCLEROSIS 16311061 Active Hyperemesis 575314277 Active HTN 06289135 Active Acute respiratory failure with hypoxia 88709048 Active COPD with exacerbation 245760728 Activ e Cancer of lung 32764039 Active Acute CHF 18601144 Active Hypertension 16215935 Active Near syncope 389853737 Active Dehydration 65959253 Active High troponin I level 284790615 Active Acute exacerbation of COPD 836451714 08/07/2021 A ctive Results COMPREHENSIVE METABOLIC PANEL [...] 35 mmol/L L=22 H= 34 ANION GAP 27949-2 2.0 mmol/L CALCIUM SERUM 32217-4 9.7 mg/dL L=8.2 H=10.2 BILIRUBIN TOTAL 1975-2 0.4 mg/dL L=0.0 H=1.3 ALK. PHOS. 6768-6 155 U/L L=46 H=116 SGOT (AST) 1920-8 15 U/L L=15 H=37 SGPT (ALT) 1742-6 25 U/L L=12 H=78 TOTAL PROTEIN 2885-2 6.1 gm/dL L=6.0 H=8.0 ALBUMIN 1751-7 3.1 gm/dL L=3.4 H=5.0 AGE 75 years eGFR (non-Afr.Amer.) 41186-8 63 mL/min eGFR (Afr-Prydeinig) 26976-1 76 mL/min MAGNESIUM SERUM - Collect Date/Time: 09/2020 10:05 Test Name Code Test Result Test Units Test Ref Range MAGNESIUM 77105-2 1.8 mg/dL L=1.8 H=2.4 TSH THYROID STIMULATING HORMONE - [facility] Date/Time: 03/28/2021 10:05 Test Name Code Test Result Test Units Test Ref Range TSH 3014-8 0.998 uIU/mL L=0.360 H=3.740 CBC W/ DIFFERENTIAL - Collect Date/Time: 03/28/2021 10:05 Test Name Code Test Result Test Units Test Ref Range WBC 6690-2 7.19 th/cmm L=5.00 H=10.00 NEUT % 80.8 % L=40.0 H=80.0 LYMPH % 9.3 % L=10.0 H=50.0 MONO % 74832-3 7.6 % L=2.0 H=12.0 EOS % 1.3 % L=0.0 H=8.0 BASO % 0.7 % L=0.0 H=3.0 IG % 2514-8 0.3 % L=0.0 H=1.1 NRBC % 34550-4 0.0 % L=0.0 H=0.0 NEUT abs count 751-8 5.8 th/cmm L=1.6 H=8.4 LYMPH abs count 731-0 0.7 th/cmm L=1.5 H=4.0 MONO abs count 742-7 0.6 th/cmm L=0.2 H=1.0 EOS abs count 711-2 0.1 th/cmm L=0.0 H=0.5 BASO abs count 704-7 0.1 th/cmm L=0.0 H=0.2 IG abs count 69552-9 0.0 th/cmm L=0.0 H=0.1 NRBC abs count 45375-4 0.0 mil/cmm L=0.0 H=0.0 RBC 789-8 3.86 [...] Frequency Route Modification Start Date/Time predniSONE 10MG 834986 1 TABLET DAILY ORAL 08/07/20 21 Oral Tablet 15:21 Prescription Detail TAKE 5 TABS ORAL FOR 2 DAYS, THEN 4 TABS FOR 2 DAYS, THEN 3 TABS FOR 2 DAYS, THEN 2 TABS FOR 2 DAYS, THEN 1 TAB FOR 2 DAYS Ipratropium 4826546 1 NEEDED INHALATION 021 15:20 [place]-Albuterol Sulfate FOUR TIMES A 0.5MG/3ML-3MG/3ML DAY Inhalation Solution Prescription Detail 1 INHALATION NEEDED FOUR TIMES A DAY FOR Difficulty Breathing Acetaminophen 325MG 183804 650 MILLIGRAMS NEEDED ORAL 06/28/2020 09:36 Oral Tablet EVERY 4 HOURS Prescription Detail TAKE 650 MILLIGRAMS ORAL NEEDED EVERY 4 HOURS Amitriptyline HCl 50MG 735427 50 MILLIGRAMS BEDTIME ORAL 06/28/2020 09:36 Oral Tablet Prescription Detail TAKE 50 MILLIGRAMS ORAL BEDT МАРИЯ Atorvastatin Calcium 253993 20 MILLIGRAMS EVERY EVENING ORAL 06/28/2020 09:36 20MG Oral Tablet Prescription Detail TAKE 20 MILLIGRAMS ORAL EVER Y EVENING Budesonide 0.5MG/2ML 992074 1 EACH DAILY INHALATION 06/28/2020 09:36 Inhalation Suspension Prescription Detail 1 EACH INHALATION DAILY Cetirizine 10MG Oral 1530514 10 MILLIGRAMS BEDTIME ORAL 06/28/2020 09:36 Tablet Prescription Detail TAKE 10 MILLIGRAMS ORAL BEDT МАРИЯ Famotidine 20MG 375517 20 MILLIGRAMS NEEDED TWICE ORAL 06/28/2020 09:36 Oral Tablet DAILY Prescription Detail TAKE 20 MILLIGRAMS ORAL N EEDED TWICE DAILY Ipratropium 5052693 1 EACH NEEDED INHALATION 020 09:36 [place]-Albuterol Sulfate 0.5MG/3ML-3MG/3ML Inhalation Solution Prescription Detail 1 EACH INHALATION NEEDED Lidocaine-Prilocaine 160679 1 EACH NEEDED TOPICAL 1 2.5%-2.5% Topical APPLICATION 09 :36 application Cream Prescription Detail 1 EACH TOPICAL APPLICATION NEEDED Losartan Potassium 100MG 954848 100 MILLIGRAMS DAILY ORAL 06/28/2020 09:36 Oral Tablet Prescription Detail TAKE 100 MILLIGRAMS ORAL PARRIS LY Magnesium 500 MG Oral 459147 2 TABLET THREE TIMES A DAY ORAL 06/28/2020 09:36 Tablet Prescription Detail TAKE 2 TABLET ORAL THREE CELSO ES A DAY Morphine Sulfate 60MG 024799 60 MILLIGRAMS TWICE A DAY ORAL 06/28/2020 09:36 Oral Capsule, Extended Release Prescription Detail TAKE 60 MILLIGRAMS ORAL TWIC E A DAY Narcan 4MG/0.1ML Nasal [place] 8838698 1 EACH NEEDED NASAL 06/28/2020 09:36 Prescription Detail SPRAY 1 EACH NASAL NEEDED Omeprazole 40MG Oral 20021106 40 MILLIGRAMS DAILY ORAL 06/28/2020 09:36 Capsule, Delayed Release Prescription Detail TAKE 40 MILLIGRAMS ORAL BETTY Y Ondansetron 4MG Oral Tablet 062379 1 TABLET DAILY ORAL 06/28/2020 09:36 Prescription Detail TAKE 1 TABLET ORAL DAILY Polyethylene Glycol 32075393562 1 EACH NEEDED DAILY ORAL 06/28/2020 09:36 17GM/1Dose Oral Powder for Solution Prescription Detail TAKE 1 EACH ORAL NEEDED D AILY PreserVision Areds 2 NA 61059852509 2 CAPSULE DAILY ORAL 06/28/2020 09:36 Oral Capsule, Liquid Filled Prescription Detail TAKE 2 CAPSULE ORAL DAILY ProAir HFA 075687 2 PUFF NEEDED INHALATION 06/28/20 09:36 0.09MG/1Actuation THREE TIMES A Inhalation Suspension DAY Prescription Detail 2 PUFF INHALATION NEEDED THREE TIMES A DAY Pulmicort Flexhaler 330142 2 PUFF TWICE A DAY INHALATION 06/28/2020 09:36 90MCG/1Act Inhalation Powder Prescription Detail 2 PUFF INHALATION TWICE A D AY Spironolactone 25MG Oral 146536 25 MILLIGRAMS DAILY ORAL 06/28/2020 09:36 Tablet Prescription Detail TAKE 25 MILLIGRAMS ORAL BETTY Y Torsemide 20MG Oral Tablet 308092 1 TABLET DAILY ORAL 06/28/2020 09:36 Prescription Detail TAKE 1 TABLET ORAL DAILY Vitamin D3 863162 5708 INTERNATIONAL UNITS DAILY ORAL 1 09:36 1000IU Oral Tablet Prescription Detail TAKE 1000 INTERNATIONAL UNIT S ORAL DAILY Ondansetron 4MG Oral 727234 4 MILLIGRAMS BEFORE MEALS ORAL 06/28/2020 09:35 Tablet, Disintegrating Prescription Detail TAKE 4 MILLIGRAMS ORAL BEFOR E MEALS predniSONE 5MG Oral 903603 5 MILLIGRAMS DAILY WITH FOOD ORAL 06/28/2020 09:35 Tablet Prescription Detail TAKE 5 MILLIGRAMS ORAL DAILY WITH FOOD Refresh Ophthalmic 504855 1 EACH NEEDED OPTHALMIC 0 10/20/2019 12:16 Solution Prescription Detail 1 EACH OPTHALMIC NEEDED Avastin 25MG/1ML Intravenous 5185820 D0ANLIJ IVPB 10/20/2019 12:15 Solution Prescription Detail IVPB D0KUEIV Mapap 325MG Oral 191188 650 MILLIGRAMS NEEDED EVERY ORAL 10/20/2019 12:14 Tablet 4 HOURS Prescription Detail TAKE 650 MILLIGRAMS ORAL NEEDED EVERY 4 HOURS amLODIPine Besylate 10MG 946501 10 MILLIGRAMS DAILY ORAL 08/06/2019 11:13 Oral Tablet Prescription Detail TAKE 10 MILLIGRAMS ORAL BETTY Y Aspirin 81MG Oral Tablet, 661452 81 MILLIGRAMS DAILY ORAL 08/16/2018 10:22 Enteric Coated Prescription Detail TAKE 81 MILLIGRAMS ORAL BETTY Y Cymbalta 60MG Oral Capsule, 221933 60 MILLIGRAMS DAILY ORAL 08/16/2018 10:22 Delayed Release Prescription Detail TAKE 60 MILLIGRAMS ORAL BETTY Y Medications Administered During Visit Unknown or Not Available. Encounters Encounter Diagnosis Diagnosis Code Start Date Encounter for antineoplastic immunotherapy [id number] 03/28/2021 Social History Smoking Status Code Start Date End Date Current every day smoker [id number] Patient Decision Aids Unknown or Not Available. Discharge Instructions You were admitted to [facility] on 03/28/2021 08:01 with a principal diagnosis of Encounter for antineoplasti c immunotherapy You had the following tests done: CBC W / DIFFERENTIAL COMPREHENSIVE METABOLIC PANEL (CMP) MAGNESIUM SERUM TSH THYROID STIMUL ATING HORMONE You were discharged from [facility] on 03/28/2021 08:01 Should you have any [...]
--- OUTSIDE RECORDS SUMMARY | 2022-03-28 01:24 | XMS_ITS | Encounter Summary ---
:[address] [facility] Address [address] [place] [address] Care Team Providers Name Role Phone Unavailable Primary Care Provider Unavailable Encounter Details Date Type Department Care Team Description 11/06/2006 - Hospital Encounter [facility] Derek Crabtreetye conklin 11/11/2006 Cardiothoracic Surgery MD [facility] [address] [phone] [facility] Level [address] [place] [address] (Wo rk) Social History Tobacco Use Types Packs/Day Years Used Date Never Assessed Sex Assigned at Date Recorded Not on file documented as of this encounter Discharge Disposition Disposition Code Departure Means Destination Home-Health Care Svc documented in this encounter OR Notes OR Surgeon - Jaycee Dasilva MD - 11/06/2006 0000 EST PROCEDURE REPORT PT TYPE: IP PT LOC: [id number] SERVICE DATE: 11/06/2006 SURGEON: MILLI Colon MDLisa Floyd, MDMitchell C Norotsky, MD ALTERNATIVE MEDICINE PRACTITIONER: Jaycee Dasilva MD PREOPERATIVE DIAGNOSIS: 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 PROCEDURE: Right lower lobectomy. ANESTHESIA: General via double-lumen tube. INDICATIONS: The patient is a 71-ncoa[age]nsbng[age]co who had approximately a 33-rjkl-qosy tobacco history who began to experience pain [...] tubes were placed at this time. A 32-Kazakh chest tube was placed anteriorly and a 36-Kazakh chest tube was placed posteriorly and secured [...] Juan Crabtree MD 11/11/2006 16:02 Larry [facility], [facility] MD Dictated by: Jaycee Dasilva MD Juan Crabtree MD - MD Brown A - ss Job ID: [id number] Document ID: [id number] cc: MD Juan Bhatt MD Cancer Data [...] Organization Address City/State/ZIP Code Phon e Number [facility] [address] [place] [address] SERVICES [facility] [address] [place] [address] CHEST PA AND LATERAL (11/10/2006 15:02 EST) [...] Organization Address City/State/ZIP Code Phon e Number [facility] [address] [facility] T [address] [facility] [address] [place], [place] [address] CHEST PA (11/09/2006 15:44 EST) Anatomical Region Laterality Modality Other Specimen Narrative [facility] - 04/07/2009 6: 13 EDT RIGHT [...] of pneumothora x. D: ??11/09/06 T: ??11/10/06 /[facility] Procedure Note Cristiano Chang MD - 04/07/2009 [...] remain normal. IMPRESSION: No evidence of pneumothorax. /[facility] Performing Organization Address City/State/ZIP Code Phon e Number [facility] [address] [facility], T [address] [facility] [address] [place], [place] [address] PORTABLE CHEST 1 VIEW [...] current pne umothorax. D: ??11/08/06 T: ??11/10/06 /[facility] Procedure Note Beverly Major MD - 04/07/2009 [...] current pneum othorax. /elizabeth Performing Organization Address [facility] Phon e Number [facility] [address] [facility], [place] [address] [facility] [address] [place], [place] [address] (ABNORMAL) ELECTROLYTES (11/08/2006 4:28 EST) Pathologist Sig [facility] Sodium 130 (L) 136 - 145 mEq/L [facility] Potassium 4.2 3.5 - 5.0 mEq/L [facility] Chloride 102 96 - 110 mEq/L [facility] CO2 26 24 - 32 mEq/L [facility] Specimen Performing Organization Address [facility] Phon e Number [facility] [address] [place] [address] SERVICES [facility] [address] [place] [address] CREATININE (11/08/2006 4:28 EST) [facility] Creatinine 0.75 0.7 - 1.5 mg/dl [facility] GFR, Calculated >60 ml/min/1.73m2 [facility] Specimen Performing Organization Address [facility] Phon e Number [facility] [address] [place] [address] SERVICES [facility] [address] [place] [address] (ABNORMAL) HEMAGRAM AND DIFFERENTIAL (11/08/2006 4:28 EST) Pathologist [facility] WBC 11.69 4.0 - 12.4 [...] Organization Address City/State/ZIP Code Phon e Number [facility] [address] [place] [address] SERVICES [facility] [address] [place] [address] BUN (11/08/2006 4:28 EST) Pathologist Sig nature BUN 10 10 - 26 mg/dl [facility] Specimen Performing Organization Address City/State/ZIP Code Phon e Number [facility] [address] [place] [address] SERVICES [facility] [address] [place] [address] (ABNORMAL) ELECTROLYTES (11/07/2006 4:14 EST) Pathologist Sig nature Sodium 130 (L) 136 - 145 mEq/L [facility] Potassium 4.7 3.5 - 5.0 mEq/L [facility] Chloride 102 96 - 110 mEq/L [facility] CO2 26 24 - 32 mEq/L [facility] Specimen Performing Organization Address City/[facility]/ZIP Code Phon e Number [facility] [address] [place] [address] SERVICES [facility] [address] [place] [address] CREATININE (11/07/2006 4:14 EST) Pathologist Sig nature Creatinine 0.83 0.7 - 1.5 mg/dl [facility] GFR, Calculated >60 ml/min/1.73m2 [facility] Specimen Performing Organization Address City/State/ZIP Code Phon e Number [facility] [address] [place] [address] SERVICES [facility] [address] [place] [address] (ABNORMAL) HEMAGRAM AND DIFFERENTIAL (11/07/2006 4:14 EST) [...] [facility] Specimen Performing Organization Address City/[facility]/ZIP Code Phon e Number [facility] [address] [place] [address] SERVICES [facility] [address] [place] [address] BUN (11/07/2006 4:14 EST) Pathologist Sig nature BUN 16 10 - 26 mg/dl [facility] Specimen Performing Organization Address [facility] Phon e Number [facility] [address] [place] [address] SERVICES [facility] [address] [place] [address] MRSA MOLECULAR DETECTION (11/06/2006 14:01 EST) Specimen Nares [facility] Description LAB Result NEGATIVE for [facility] Methicillin Resistant LAB Staphylococcus aureus DNA by PCR. Report Status Final [facility] [id number] LAB Specimen Performing Organization Address [facility] Phon e Number [facility] [address] [place] [address] SERVICES [facility] [address] [place] [address] (ABNORMAL) HEMAGRAM (11/06/2006 11:32 EST) Pathologist Sig [...] [facility] Specimen Performing Organization Address [facility]/ZIP Code Phon e Number [facility] [address] [place] [address] SERVICES [facility] [address] [place] [address] (ABNORMAL) GLUCOSE, GLUCOMETER (11/06/2006 11:27 EST) Glucose, 139 (H) 70 - 100 [facility] Fingerstick mg/dl LAB Screen [place] [id number] [facility] Test Performed by Nursing Services LAB Specimen Performing Organization Address City/State/ZIP Code Phon e Number [facility] [address] [place] [address] SERVICES [facility] [address] [place] [address] PORTABLE CHEST 1 VIEW (11/06/2006 11:07 EST) [...] and overall, the lungs are c lear. /[facility]. I have personally reviewed the images an d the above interpretation and agree with the findings. Performing Organization Address City/State/ZIP Code Phon e Number [facility] [address] [facility], [place] [address] [facility] [address] [place], [place] [address] documented in this encounter Visit Diagnoses Not on filedocumented in this encounter
--- OUTSIDE RECORDS SUMMARY | 2022-03-28 01:24 | XMS_ITS | CCD ---
:1945 Author Care Team Providers Name Role Phone RADHA VANN, CLEOPATRA Gómez Attending Physician Unavailable Vital Signs Unknown or Not Available. Allergies Allergy Code Allergy Type Reaction Status PENICILLINS (CLASS) 0 Drug allergy pt doesn't know Activ e TETRACYCLINE 79044 Drug allergy Active Procedures Unknown or Not Available. History of Immunizations Unknown or Not Available. Problems Problem Code Start Date Resolved Date Status CHRONIC AIRWAY OBSTRUCTION 55741417 A ctive HX OF BRONCHOGENIC MALIGNANCY 400439304 Active MULTIPLE SCLEROSIS 29734152 Active Hyperemesis 295830850 Active HTN 06932548 Active Acute respiratory failure with hypoxia 55540716 Active COPD with exacerbation 251774766 Activ e Cancer of lung 77796583 Active Acute CHF 37179173 Active Hypertension 99394914 Active Near syncope 870786537 Active Dehydration 23496159 Active High troponin I level 815915564 Active Acute exacerbation of COPD 629539512 08/07/2021 A ctive Results Unknown or Not Available. Active Medications Medication Code Dose Units Frequency Route Modification Start Date/Time predniSONE 10MG 555532 1 TABLET DAILY ORAL 08/07/20 21 Oral Tablet 15:21 Prescription Detail TAKE 5 TABS ORAL FOR 2 DAYS, THEN 4 TABS FOR 2 DAYS, THEN 3 TABS FOR 2 DAYS, THEN 2 TABS FOR 2 DAYS, THEN 1 TAB FOR 2 DAYS Ipratropium 6335309 1 NEEDED INHALATION 021 15:20 [place]-Albuterol Sulfate FOUR TIMES A 0.5MG/3ML-3MG/3ML DAY Inhalation Solution Prescription Detail 1 INHALATION NEEDED FOUR TIMES A DAY FOR Difficulty Breathing Acetaminophen 325MG 242570 650 MILLIGRAMS NEEDED ORAL 06/28/2020 09:36 Oral Tablet EVERY 4 HOURS Prescription Detail TAKE 650 MILLIGRAMS ORAL NEEDED EVERY 4 HOURS Amitriptyline HCl 50MG 056808 50 MILLIGRAMS BEDTIME ORAL 06/28/2020 09:36 Oral Tablet Prescription Detail TAKE 50 MILLIGRAMS ORAL BEDT МАРИЯ Atorvastatin Calcium 262061 20 MILLIGRAMS EVERY EVENING ORAL 06/28/2020 09:36 20MG Oral Tablet Prescription Detail TAKE 20 MILLIGRAMS ORAL EVER Y EVENING Budesonide 0.5MG/2ML 851776 1 EACH DAILY INHALATION 06/28/2020 09:36 Inhalation Suspension Prescription Detail 1 EACH INHALATION DAILY Cetirizine 10MG Oral 0844459 10 MILLIGRAMS BEDTIME ORAL 06/28/2020 09:36 Tablet Prescription Detail TAKE 10 MILLIGRAMS ORAL BEDT МАРИЯ Famotidine 20MG 133688 20 MILLIGRAMS NEEDED TWICE ORAL 06/28/2020 09:36 Oral Tablet DAILY Prescription Detail TAKE 20 MILLIGRAMS ORAL N EEDED TWICE DAILY Ipratropium 1410353 1 EACH NEEDED INHALATION 020 09:36 [place]rier-Albuterol Sulfate 0.5MG/3ML-3MG/3ML Inhalation Solution Prescription Detail 1 EACH INHALATION NEEDED Lidocaine-Prilocaine 966399 1 EACH NEEDED TOPICAL 1 2.5%-2.5% Topical APPLICATION 09 :36 application Cream Prescription Detail 1 EACH TOPICAL APPLICATION NEEDED Losartan Potassium 100MG 202709 100 MILLIGRAMS DAILY ORAL 06/28/2020 09:36 Oral Tablet Prescription Detail TAKE 100 MILLIGRAMS ORAL PARRIS LY Magnesium 500 MG Oral 507840 2 TABLET THREE TIMES A DAY ORAL 06/28/2020 09:36 Tablet Prescription Detail TAKE 2 TABLET ORAL THREE CELSO ES A DAY Morphine Sulfate 60MG 470682 60 MILLIGRAMS TWICE A DAY ORAL 06/28/2020 09:36 Oral Capsule, Extended Release Prescription Detail TAKE 60 MILLIGRAMS ORAL TWIC E A DAY Narcan 4MG/0.1ML Nasal [place] 6283290 1 EACH NEEDED NASAL 06/28/2020 09:36 Prescription Detail SPRAY 1 EACH NASAL NEEDED Omeprazole 40MG Oral 20021106 40 MILLIGRAMS DAILY ORAL 06/28/2020 09:36 Capsule, Delayed Release Prescription Detail TAKE 40 MILLIGRAMS ORAL BETTY Y Ondansetron 4MG Oral Tablet 580906 1 TABLET DAILY ORAL 06/28/2020 09:36 Prescription Detail TAKE 1 TABLET ORAL DAILY Polyethylene Glycol 65963933882 1 EACH NEEDED DAILY ORAL 06/28/2020 09:36 17GM/1Dose Oral Powder for Solution Prescription Detail TAKE 1 EACH ORAL NEEDED D AILY PreserVision Areds 2 NA 65651000474 2 CAPSULE DAILY ORAL 06/28/2020 09:36 Oral Capsule, Liquid Filled Prescription Detail TAKE 2 CAPSULE ORAL DAILY ProAir HFA 204209 2 PUFF NEEDED INHALATION 06/28/20 09:36 0.09MG/1Actuation THREE TIMES A Inhalation Suspension DAY Prescription Detail 2 PUFF INHALATION NEEDED THREE TIMES A DAY Pulmicort Flexhaler 569853 2 PUFF TWICE A DAY INHALATION 06/28/2020 09:36 90MCG/1Act Inhalation Powder Prescription Detail 2 PUFF INHALATION TWICE A D AY Spironolactone 25MG Oral 217168 25 MILLIGRAMS DAILY ORAL 06/28/2020 09:36 Tablet Prescription Detail TAKE 25 MILLIGRAMS ORAL BETTY Y Torsemide 20MG Oral Tablet 315909 1 TABLET DAILY ORAL 06/28/2020 09:36 Prescription Detail TAKE 1 TABLET ORAL DAILY Vitamin D3 190981 6854 INTERNATIONAL UNITS DAILY ORAL 1 09:36 1000IU Oral Tablet Prescription Detail TAKE 1000 INTERNATIONAL UNIT S ORAL DAILY Ondansetron 4MG Oral 274693 4 MILLIGRAMS BEFORE MEALS ORAL 06/28/2020 09:35 Tablet, Disintegrating Prescription Detail TAKE 4 MILLIGRAMS ORAL BEFOR E MEALS predniSONE 5MG Oral 047888 5 MILLIGRAMS DAILY WITH FOOD ORAL 06/28/2020 09:35 Tablet Prescription Detail TAKE 5 MILLIGRAMS ORAL DAILY WITH FOOD Refresh Ophthalmic 780665 1 EACH NEEDED OPTHALMIC 0 10/20/2019 12:16 Solution Prescription Detail 1 EACH OPTHALMIC NEEDED Avastin 25MG/1ML Intravenous 4183972 B6OTLBY IVPB 10/20/2019 12:15 Solution Prescription Detail IVPB [id number] Mapap 325MG Oral 032857 650 MILLIGRAMS NEEDED EVERY ORAL 10/20/2019 12:14 Tablet 4 HOURS Prescription Detail TAKE 650 MILLIGRAMS ORAL NEEDED EVERY 4 HOURS amLODIPine Besylate 10MG 701588 10 MILLIGRAMS DAILY ORAL 08/06/2019 11:13 Oral Tablet Prescription Detail TAKE 10 MILLIGRAMS ORAL BETTY Y Aspirin 81MG Oral Tablet, 484410 81 MILLIGRAMS DAILY ORAL 08/16/2018 10:22 Enteric Coated Prescription Detail TAKE 81 MILLIGRAMS ORAL BETTY Y Cymbalta 60MG Oral Capsule, 401632 60 MILLIGRAMS DAILY ORAL 08/16/2018 10:22 Delayed Release Prescription Detail TAKE 60 MILLIGRAMS ORAL BETTY Y Medications Administered During Visit Unknown or Not Available. Encounters Encounter Diagnosis Diagnosis Code Start Date Malignant neoplasm of upper lobe, left bronchus or lung C341 2 06/05/2021 Social History Smoking Status Code Start Date End Date Current every day smoker 391336250 Patient Decision Aids Unknown or Not Available. Discharge Instructions You were admitted to [facility] on 06/05/2021 11:20 with a principal diagnosis of Malignant neoplasm of upper lobe, left bronchus or lung You were discharged from [facility] on 06/05/2021 11:20 Should you have any questions prior to d ischarge, please contact a member of your healthcare team. If you have left the [facility] and have any questions, please contact your primary care physician. Chief Complaint and Reason For Visit Unknown or Not Available. Function Status Unknown or Not Available. Plan of Care Unknown or Not Available. Referral/Transition of Care Unknown or Not Available.
--- OUTSIDE RECORDS SUMMARY | 2022-03-28 01:24 | XMS_ITS | Encounter Summary ---
:1945 Author Organization [facility] Address [address] [place] [address] Care Team Providers Name Role Phone Unavailable Primary Care Provider Unavailable Encounter Details Date Type Department Care Team Description 03/21/2003 Hospital Encounter [facility] Tomas Mendoza [facility] DO [address] [facility] [address] [place] [address] [place] [address] (Wo rk) Social History Tobacco Use Types [...] OLD FEMALE WITH MULTIPLE SCLEROSIS SUGGESTIVE AT [facility] (MEDICAR E PT/PASSED 340)R/O SMALL VESSEL DISEASE [...] FEMALE WITH MULTIPLE SCLEROS IS SUGGESTIVE AT [facility] (MEDICAR E PT/PASSED 340)R/O SMALL VESSEL DISEASE [...] City/State/ZIP Code Phon e Number [facility] [address] [facility], [place] [address] [facility] [address] [place], [place] [address] documented in this encounter Visit Diagnoses Not on filedocumented in this encounter
--- OUTSIDE RECORDS SUMMARY | 2022-03-28 01:24 | XMS_ITS | CCD ---
:1945 Author Care Team Providers Name Role Phone RADHA VANN, CLEOPATRA Gómez Attending Physician Unavailable Vital Signs Unknown or Not Available. Allergies Allergy Code Allergy Type Reaction Status PENICILLINS (CLASS) 0 Drug allergy pt doesn't know Activ e TETRACYCLINE 77155 Drug allergy Active Procedures Unknown or Not Available. History of Immunizations Unknown or Not Available. Problems Problem Code Start Date Resolved Date Status CHRONIC AIRWAY OBSTRUCTION 94699698 A ctive HX OF BRONCHOGENIC MALIGNANCY 693001864 Active MULTIPLE SCLEROSIS 28295354 Active Hyperemesis 634462388 Active HTN 12296863 Active Acute respiratory failure with hypoxia 92761034 Active COPD with exacerbation 082689061 Activ e Cancer of lung 45549489 Active Acute CHF 05562696 Active Hypertension 22779401 Active Near syncope 634547926 Active Dehydration 74814416 Active High troponin I level 623352955 Active Acute exacerbation of COPD 356606325 08/07/2021 A ctive Results COMPREHENSIVE METABOLIC PANEL [...] 34 mmol/L L=22 H= 34 ANION GAP 71445-0 3.7 mmol/L CALCIUM SERUM 64268-9 9.7 mg/dL L=8.2 H=10.2 BILIRUBIN TOTAL 1975-2 0.3 mg/dL L=0.0 H=1.3 ALK. PHOS. 6768-6 135 U/L L=46 H=116 SGOT (AST) 1920-8 12 U/L L=15 H=37 SGPT (ALT) 1742-6 15 U/L L=12 H=78 TOTAL PROTEIN 2885-2 6.3 gm/dL L=6.0 H=8.0 ALBUMIN 1751-7 3.1 gm/dL L=3.4 H=5.0 AGE 75 years eGFR (non-Afr.Amer.) 76712-2 67 mL/min eGFR (Afr-Swiss) 63094-1 81 mL/min MAGNESIUM SERUM - Collect Date/Time: 10:00 Test Name Code Test Result Test Units Test Ref Range MAGNESIUM 13608-5 1.6 mg/dL L=1.8 H=2.4 TSH THYROID STIMULATING HORMONE - [facility] Date/Time: 04/18/2021 10:00 Test Name Code Test Result Test Units Test Ref Range TSH 3014-8 1.526 uIU/mL L=0.360 H=3.740 CBC W/ DIFFERENTIAL - Collect Date/Time: 04/18/2021 10:00 Test Name Code Test Result Test Units Test Ref Range WBC 6690-2 7.64 th/cmm L=5.00 H=10.00 NEUT % 78.2 % L=40.0 H=80.0 LYMPH % 9.9 % L=10.0 H=50.0 MONO % 22324-6 9.7 % L=2.0 H=12.0 EOS % 1.3 % L=0.0 H=8.0 BASO % 0.8 % L=0.0 H=3.0 IG % 2514-8 0.1 % L=0.0 H=1.1 NRBC % 19808-0 0.0 % L=0.0 H=0.0 NEUT abs count 751-8 6.0 th/cmm L=1.6 H=8.4 LYMPH abs count 731-0 0.8 th/cmm L=1.5 H=4.0 MONO abs count 742-7 0.7 th/cmm L=0.2 H=1.0 EOS abs count 711-2 0.1 th/cmm L=0.0 H=0.5 BASO abs count 704-7 0.1 th/cmm L=0.0 H=0.2 IG abs count 03795-2 0.0 th/cmm L=0.0 H=0.1 NRBC abs count 06280-2 0.0 mil/cmm L=0.0 H=0.0 RBC 789-8 3.66 [...] Frequency Route Modification Start Date/Time predniSONE 10MG 754562 1 TABLET DAILY ORAL 08/07/20 21 Oral Tablet 15:21 Prescription Detail TAKE 5 TABS ORAL FOR 2 DAYS, THEN 4 TABS FOR 2 DAYS, THEN 3 TABS FOR 2 DAYS, THEN 2 TABS FOR 2 DAYS, THEN 1 TAB FOR 2 DAYS Ipratropium 1348953 1 NEEDED INHALATION 021 15:20 [place]-Albuterol Sulfate FOUR TIMES A 0.5MG/3ML-3MG/3ML DAY Inhalation Solution Prescription Detail 1 INHALATION NEEDED FOUR TIMES A DAY FOR Difficulty Breathing Acetaminophen 325MG 645007 650 MILLIGRAMS NEEDED ORAL 06/28/2020 09:36 Oral Tablet EVERY 4 HOURS Prescription Detail TAKE 650 MILLIGRAMS ORAL NEEDED EVERY 4 HOURS Amitriptyline HCl 50MG 546910 50 MILLIGRAMS BEDTIME ORAL 06/28/2020 09:36 Oral Tablet Prescription Detail TAKE 50 MILLIGRAMS ORAL BEDT МАРИЯ Atorvastatin Calcium 020964 20 MILLIGRAMS EVERY EVENING ORAL 06/28/2020 09:36 20MG Oral Tablet Prescription Detail TAKE 20 MILLIGRAMS ORAL EVER Y EVENING Budesonide 0.5MG/2ML 428951 1 EACH DAILY INHALATION 06/28/2020 09:36 Inhalation Suspension Prescription Detail 1 EACH INHALATION DAILY Cetirizine 10MG Oral 6928580 10 MILLIGRAMS BEDTIME ORAL 06/28/2020 09:36 Tablet Prescription Detail TAKE 10 MILLIGRAMS ORAL BEDT МАРИЯ Famotidine 20MG 305852 20 MILLIGRAMS NEEDED TWICE ORAL 06/28/2020 09:36 Oral Tablet DAILY Prescription Detail TAKE 20 MILLIGRAMS ORAL N EEDED TWICE DAILY Ipratropium 6447721 1 EACH NEEDED INHALATION 020 09:36 [place]-Albuterol Sulfate 0.5MG/3ML-3MG/3ML Inhalation Solution Prescription Detail 1 EACH INHALATION NEEDED Lidocaine-Prilocaine 132096 1 EACH NEEDED TOPICAL 1 2.5%-2.5% Topical APPLICATION 09 :36 application Cream Prescription Detail 1 EACH TOPICAL APPLICATION NEEDED Losartan Potassium 100MG 324247 100 MILLIGRAMS DAILY ORAL 06/28/2020 09:36 Oral Tablet Prescription Detail TAKE 100 MILLIGRAMS ORAL PARRIS LY Magnesium 500 MG Oral 027979 2 TABLET THREE TIMES A DAY ORAL 06/28/2020 09:36 Tablet Prescription Detail TAKE 2 TABLET ORAL THREE CELSO ES A DAY Morphine Sulfate 60MG 403545 60 MILLIGRAMS TWICE A DAY ORAL 06/28/2020 09:36 Oral Capsule, Extended Release Prescription Detail TAKE 60 MILLIGRAMS ORAL TWIC E A DAY Narcan 4MG/0.1ML Nasal [place] 3811163 1 EACH NEEDED NASAL 06/28/2020 09:36 Prescription Detail SPRAY 1 EACH NASAL NEEDED Omeprazole 40MG Oral 20021106 40 MILLIGRAMS DAILY ORAL 06/28/2020 09:36 Capsule, Delayed Release Prescription Detail TAKE 40 MILLIGRAMS ORAL BETTY Y Ondansetron 4MG Oral Tablet 377999 1 TABLET DAILY ORAL 06/28/2020 09:36 Prescription Detail TAKE 1 TABLET ORAL DAILY Polyethylene Glycol 97678148877 1 EACH NEEDED DAILY ORAL 06/28/2020 09:36 17GM/1Dose Oral Powder for Solution Prescription Detail TAKE 1 EACH ORAL NEEDED D AILY PreserVision Areds 2 NA 03095067279 2 CAPSULE DAILY ORAL 06/28/2020 09:36 Oral Capsule, Liquid Filled Prescription Detail TAKE 2 CAPSULE ORAL DAILY ProAir HFA 630273 2 PUFF NEEDED INHALATION 06/28/20 09:36 0.09MG/1Actuation THREE TIMES A Inhalation Suspension DAY Prescription Detail 2 PUFF INHALATION NEEDED THREE TIMES A DAY Pulmicort Flexhaler 292509 2 PUFF TWICE A DAY INHALATION 06/28/2020 09:36 90MCG/1Act Inhalation Powder Prescription Detail 2 PUFF INHALATION TWICE A D AY Spironolactone 25MG Oral 387678 25 MILLIGRAMS DAILY ORAL 06/28/2020 09:36 Tablet Prescription Detail TAKE 25 MILLIGRAMS ORAL BETTY Y Torsemide 20MG Oral Tablet 945048 1 TABLET DAILY ORAL 06/28/2020 09:36 Prescription Detail TAKE 1 TABLET ORAL DAILY Vitamin D3 617422 8159 INTERNATIONAL UNITS DAILY ORAL 1 09:36 1000IU Oral Tablet Prescription Detail TAKE 1000 INTERNATIONAL UNIT S ORAL DAILY Ondansetron 4MG Oral 698446 4 MILLIGRAMS BEFORE MEALS ORAL 06/28/2020 09:35 Tablet, Disintegrating Prescription Detail TAKE 4 MILLIGRAMS ORAL BEFOR E MEALS predniSONE 5MG Oral 953893 5 MILLIGRAMS DAILY WITH FOOD ORAL 06/28/2020 09:35 Tablet Prescription Detail TAKE 5 MILLIGRAMS ORAL DAILY WITH FOOD Refresh Ophthalmic 713861 1 EACH NEEDED OPTHALMIC 0 10/20/2019 12:16 Solution Prescription Detail 1 EACH OPTHALMIC NEEDED Avastin 25MG/1ML Intravenous 4273734 [id number] IVPB 10/20/2019 12:15 Solution Prescription Detail IVPB [id number] Mapap 325MG Oral 339896 650 MILLIGRAMS NEEDED EVERY ORAL 10/20/2019 12:14 Tablet 4 HOURS Prescription Detail TAKE 650 MILLIGRAMS ORAL NEEDED EVERY 4 HOURS amLODIPine Besylate 10MG 108502 10 MILLIGRAMS DAILY ORAL 08/06/2019 11:13 Oral Tablet Prescription Detail TAKE 10 MILLIGRAMS ORAL BETTY Y Aspirin 81MG Oral Tablet, 103827 81 MILLIGRAMS DAILY ORAL 08/16/2018 10:22 Enteric Coated Prescription Detail TAKE 81 MILLIGRAMS ORAL BETTY Y Cymbalta 60MG Oral Capsule, 063463 60 MILLIGRAMS DAILY ORAL 08/16/2018 10:22 Delayed Release Prescription Detail TAKE 60 MILLIGRAMS ORAL BETTY Y Medications Administered During Visit Unknown or Not Available. Encounters Encounter Diagnosis Diagnosis Code Start Date Encounter for antineoplastic immunotherapy [id number] 04/18/2021 Social History Smoking Status Code Start Date End Date Current every day smoker 202122065 Patient Decision Aids Unknown or Not Available. [...]
--- OUTSIDE RECORDS SUMMARY | 2022-03-28 01:24 | XMS_ITS | CCD ---
:1945 Author Care Team Providers Name Role Phone RADHA VANN, CLEOPATRA Gómez Attending Physician Unavailable Vital Signs Unknown or Not Available. Allergies Allergy Code Allergy Type Reaction Status PENICILLINS (CLASS) 0 Drug allergy pt doesn't know Activ e TETRACYCLINE 93341 Drug allergy Active Procedures Unknown or Not Available. History of Immunizations Unknown or Not Available. Problems Problem Code Start Date Resolved Date Status CHRONIC AIRWAY OBSTRUCTION 47887879 A ctive HX OF BRONCHOGENIC MALIGNANCY 263023167 Active MULTIPLE SCLEROSIS 45885884 Active Hyperemesis 840261668 Active HTN 46827251 Active Acute respiratory failure with hypoxia 15058542 Active COPD with exacerbation 765693028 Activ e Cancer of lung 98748983 Active Acute CHF 74622140 Active Hypertension 96665014 Active Near syncope 356747023 Active Dehydration 35306327 Active High troponin I level 346099384 Active Acute exacerbation of COPD 723357949 08/07/2021 A ctive Results Unknown or Not Available. Active Medications Medication Code Dose Units Frequency Route Modification Start Date/Time predniSONE 10MG 313923 1 TABLET DAILY ORAL 08/07/20 21 Oral Tablet 15:21 Prescription Detail TAKE 5 TABS ORAL FOR 2 DAYS, THEN 4 TABS FOR 2 DAYS, THEN 3 TABS FOR 2 DAYS, THEN 2 TABS FOR 2 DAYS, THEN 1 TAB FOR 2 DAYS Ipratropium 4412065 1 NEEDED INHALATION 021 15:20 [place]-Albuterol Sulfate FOUR TIMES A 0.5MG/3ML-3MG/3ML DAY Inhalation Solution Prescription Detail 1 INHALATION NEEDED FOUR TIMES A DAY FOR Difficulty Breathing Acetaminophen 325MG 026266 650 MILLIGRAMS NEEDED ORAL 06/28/2020 09:36 Oral Tablet EVERY 4 HOURS Prescription Detail TAKE 650 MILLIGRAMS ORAL NEEDED EVERY 4 HOURS Amitriptyline HCl 50MG 768880 50 MILLIGRAMS BEDTIME ORAL 06/28/2020 09:36 Oral Tablet Prescription Detail TAKE 50 MILLIGRAMS ORAL BEDT МАРИЯ Atorvastatin Calcium 671766 20 MILLIGRAMS EVERY EVENING ORAL 06/28/2020 09:36 20MG Oral Tablet Prescription Detail TAKE 20 MILLIGRAMS ORAL EVER Y EVENING Budesonide 0.5MG/2ML 724845 1 EACH DAILY INHALATION 06/28/2020 09:36 Inhalation Suspension Prescription Detail 1 EACH INHALATION DAILY Cetirizine 10MG Oral 7874624 10 MILLIGRAMS BEDTIME ORAL 06/28/2020 09:36 Tablet Prescription Detail TAKE 10 MILLIGRAMS ORAL BEDT МАРИЯ Famotidine 20MG 617543 20 MILLIGRAMS NEEDED TWICE ORAL 06/28/2020 09:36 Oral Tablet DAILY Prescription Detail TAKE 20 MILLIGRAMS ORAL N EEDED TWICE DAILY Ipratropium 7428042 1 EACH NEEDED INHALATION 020 09:36 [place]-Albuterol Sulfate 0.5MG/3ML-3MG/3ML Inhalation Solution Prescription Detail 1 EACH INHALATION NEEDED Lidocaine-Prilocaine 511847 1 EACH NEEDED TOPICAL 1 2.5%-2.5% Topical APPLICATION 09 :36 application Cream Prescription Detail 1 EACH TOPICAL APPLICATION NEEDED Losartan Potassium 100MG 567504 100 MILLIGRAMS DAILY ORAL 06/28/2020 09:36 Oral Tablet Prescription Detail TAKE 100 MILLIGRAMS ORAL PARRIS LY Magnesium 500 MG Oral 961882 2 TABLET THREE TIMES A DAY ORAL 06/28/2020 09:36 Tablet Prescription Detail TAKE 2 TABLET ORAL THREE CELSO ES A DAY Morphine Sulfate 60MG 731804 60 MILLIGRAMS TWICE A DAY ORAL 06/28/2020 09:36 Oral Capsule, Extended Release Prescription Detail TAKE 60 MILLIGRAMS ORAL TWIC E A DAY Narcan 4MG/0.1ML Nasal [place] 4817701 1 EACH NEEDED NASAL 06/28/2020 09:36 Prescription Detail SPRAY 1 EACH NASAL NEEDED Omeprazole 40MG Oral 20021106 40 MILLIGRAMS DAILY ORAL 06/28/2020 09:36 Capsule, Delayed Release Prescription Detail TAKE 40 MILLIGRAMS ORAL BETTY Y Ondansetron 4MG Oral Tablet 188632 1 TABLET DAILY ORAL 06/28/2020 09:36 Prescription Detail TAKE 1 TABLET ORAL DAILY Polyethylene Glycol 04842422362 1 EACH NEEDED DAILY ORAL 06/28/2020 09:36 17GM/1Dose Oral Powder for Solution Prescription Detail TAKE 1 EACH ORAL NEEDED D AILY PreserVision Areds 2 NA 02178130685 2 CAPSULE DAILY ORAL 06/28/2020 09:36 Oral Capsule, Liquid Filled Prescription Detail TAKE 2 CAPSULE ORAL DAILY ProAir HFA 332222 2 PUFF NEEDED INHALATION 06/28/20 09:36 0.09MG/1Actuation THREE TIMES A Inhalation Suspension DAY Prescription Detail 2 PUFF INHALATION NEEDED THREE TIMES A DAY Pulmicort Flexhaler 847524 2 PUFF TWICE A DAY INHALATION 06/28/2020 09:36 90MCG/1Act Inhalation Powder Prescription Detail 2 PUFF INHALATION TWICE A D AY Spironolactone 25MG Oral 669677 25 MILLIGRAMS DAILY ORAL 06/28/2020 09:36 Tablet Prescription Detail TAKE 25 MILLIGRAMS ORAL BETTY Y Torsemide 20MG Oral Tablet 443829 1 TABLET DAILY ORAL 06/28/2020 09:36 Prescription Detail TAKE 1 TABLET ORAL DAILY Vitamin D3 784814 2320 INTERNATIONAL UNITS DAILY ORAL 1 09:36 1000IU Oral Tablet Prescription Detail TAKE 1000 INTERNATIONAL UNIT S ORAL DAILY Ondansetron 4MG Oral 777318 4 MILLIGRAMS BEFORE MEALS ORAL 06/28/2020 09:35 Tablet, Disintegrating Prescription Detail TAKE 4 MILLIGRAMS ORAL BEFOR E MEALS predniSONE 5MG Oral 378975 5 MILLIGRAMS DAILY WITH FOOD ORAL 06/28/2020 09:35 Tablet Prescription Detail TAKE 5 MILLIGRAMS ORAL DAILY WITH FOOD Refresh Ophthalmic 055124 1 EACH NEEDED OPTHALMIC 0 10/20/2019 12:16 Solution Prescription Detail 1 EACH OPTHALMIC NEEDED Avastin 25MG/1ML Intravenous 6065727 [id number] IVPB 10/20/2019 12:15 Solution Prescription Detail IVPB [id number] Mapap 325MG Oral 999126 650 MILLIGRAMS NEEDED EVERY ORAL 10/20/2019 12:14 Tablet 4 HOURS Prescription Detail TAKE 650 MILLIGRAMS ORAL NEEDED EVERY 4 HOURS amLODIPine Besylate 10MG 742777 10 MILLIGRAMS DAILY ORAL 08/06/2019 11:13 Oral Tablet Prescription Detail TAKE 10 MILLIGRAMS ORAL BETTY Y Aspirin 81MG Oral Tablet, 574960 81 MILLIGRAMS DAILY ORAL 08/16/2018 10:22 Enteric Coated Prescription Detail TAKE 81 MILLIGRAMS ORAL BETTY Y Cymbalta 60MG Oral Capsule, 686575 60 MILLIGRAMS DAILY ORAL 08/16/2018 10:22 Delayed Release Prescription Detail TAKE 60 MILLIGRAMS ORAL BETTY Y Medications Administered During Visit Unknown or Not Available. Encounters Encounter Diagnosis Diagnosis Code Start Date Malignant neoplasm of unspecified part of unspecified C3490 06/10/2021 bronchus or lung Social History Smoking Status Code Start Date End Date Current every day smoker 305874857 Patient Decision Aids Unknown or Not Available. Discharge Instructions You were admitted to [facility] on 06/10/2021 09:22 with a principal diagnosis of Malignant neoplasm of unspe cified part of unspecified bronchus or lung You were discharged from [facility] on 06/10/2021 09:22 Should you have any [...]
--- OUTSIDE RECORDS SUMMARY | 2022-03-28 01:24 | XMS_ITS | Encounter Summary ---
:1945 Author Organization [facility] Address [address] [place] [address] Care Team Providers Name Role Phone Unavailable Primary Care Provider Unavailable Encounter Details Date Type Department Care Team Description 09/10/2006 Results Only [facility] Toby Martinez MD Interventional Radiology - [address] [phone] (Wo rk) Social History Tobacco Use [...] ? CARLY ALVARADO ? Accession #: ? [id number] : ? 1945 (Age: 61) ??F ?Collect Date: ? 08/28 Location: ? RAD ? Receive Date: ? 09/10/2006 Provider: ? JANUARY MARTINEZ MD Copy to: ?DARVIN MENDEZ MD ? Fine Needle Aspiratio n/Core Biopsy (Assisted) ? Radiology Department, [place] [address] ([facility]) ? Addendum ? Date Ordered: ? 09/18/2006 [...] eagents' ??performance characteristics have been determined by [facility]. ??This laboratory is certified unde r the Clinical Laboratory Improvement Amendments of 1988 (CLIA-88) as qualified to perform high complexity clinical laboratory testing. ?? Document reviewed and electronically signed by: ? GLADWYN LEIMAN MD [facility] ? Report date: 09/18/2006 By the signature [...] done and reported on an addendum. ??(Dr. Chaudhary)/[facility] Document reviewed and electronically signed by: ? KEESHA CHAUDHARY MD [facility] Report Date: ??09/10/2006 17:02 By the signature [...] pneumocytes + and mucus ++. (Mandy Paniagua, [facility]), Dr. Keesha Chaudhary; 09/10). Gross Description: ? 3 fixed prepared slid es and 1 tube of Cytolyt were received and processed by selective cellular enhancement technique. ? End of Report Specimen Performing Organization Address City/State/ZIP Code Phon e Number [facility] [address] [place] [address] SERVICES [facility] [address] [place] [address] documented in this encounter Visit Diagnoses Not on filedocumented in this encounter
--- OUTSIDE RECORDS SUMMARY | 2022-03-28 01:24 | XMS_ITS | CCD ---
:1945 Author Care Team Providers Name Role Phone RADHA VANN, CLEOPATRA Gómez Attending Physician Unavailable Vital Signs Unknown or Not Available. Allergies Allergy Code Allergy Type Reaction Status PENICILLINS (CLASS) 0 Drug allergy pt doesn't know Activ e TETRACYCLINE 28982 Drug allergy Active Procedures Unknown or Not Available. History of Immunizations Unknown or Not Available. Problems Problem Code Start Date Resolved Date Status CHRONIC AIRWAY OBSTRUCTION 65690615 A ctive HX OF BRONCHOGENIC MALIGNANCY 868705910 Active MULTIPLE SCLEROSIS 82070347 Active Hyperemesis 006562005 Active HTN 79267204 Active Acute respiratory failure with hypoxia 49614876 Active COPD with exacerbation 053092551 Activ e Cancer of lung 22660914 Active Acute CHF 13953162 Active Hypertension 60825484 Active Near syncope 778907406 Active Dehydration 68654288 Active High troponin I level 431259543 Active Acute exacerbation of COPD 748402655 08/07/2021 A ctive Results COMPREHENSIVE METABOLIC PANEL [...] 33 mmol/L L=22 H= 34 ANION GAP 53905-3 0.8 mmol/L CALCIUM SERUM 86133-9 9.4 mg/dL L=8.2 H=10.2 BILIRUBIN TOTAL 1975-2 0.3 mg/dL L=0.0 H=1.3 ALK. PHOS. 6768-6 111 U/L L=46 H=116 SGOT (AST) 1920-8 12 U/L L=15 H=37 SGPT (ALT) 1742-6 19 U/L L=12 H=78 TOTAL PROTEIN 2885-2 6.0 gm/dL L=6.0 H=8.0 ALBUMIN 1751-7 3.2 gm/dL L=3.4 H=5.0 AGE 75 years eGFR (non-Afr.Amer.) 51473-8 65 mL/min eGFR (Afr-Bhutanese) 44160-8 79 mL/min MAGNESIUM SERUM - Collect Date/Time: 08/2021 08:52 Test Name Code Test Result Test Units Test Ref Range MAGNESIUM 17015-4 1.8 mg/dL L=1.8 H=2.4 CBC W/ DIFFERENTIAL - Collect Date/Time: 05/09/2021 08:52 Test Name Code Test Result Test Units Test Ref Range WBC 6690-2 7.56 th/cmm L=5.00 H=10.00 NEUT % 78.4 % L=40.0 H=80.0 LYMPH % 9.5 % L=10.0 H=50.0 MONO % 64646-1 9.7 % L=2.0 H=12.0 EOS % 1.2 % L=0.0 H=8.0 BASO % 0.8 % L=0.0 H=3.0 IG % 2514-8 0.4 % L=0.0 H=1.1 NRBC % 40208-2 0.0 % L=0.0 H=0.0 NEUT abs count 751-8 5.9 th/cmm L=1.6 H=8.4 LYMPH abs count 731-0 0.7 th/cmm L=1.5 H=4.0 MONO abs count 742-7 0.7 th/cmm L=0.2 H=1.0 EOS abs count 711-2 0.1 th/cmm L=0.0 H=0.5 BASO abs count 704-7 0.1 th/cmm L=0.0 H=0.2 IG abs count 40961-2 0.0 th/cmm L=0.0 H=0.1 NRBC abs count 56507-9 0.0 mil/cmm L=0.0 H=0.0 RBC 789-8 3.74 [...] Frequency Route Modification Start Date/Time predniSONE 10MG 392717 1 TABLET DAILY ORAL 08/07/20 21 Oral Tablet 15:21 Prescription Detail TAKE 5 TABS ORAL FOR 2 DAYS, THEN 4 TABS FOR 2 DAYS, THEN 3 TABS FOR 2 DAYS, THEN 2 TABS FOR 2 DAYS, THEN 1 TAB FOR 2 DAYS Ipratropium 2625674 1 NEEDED INHALATION 021 15:20 [place]-Albuterol Sulfate FOUR TIMES A 0.5MG/3ML-3MG/3ML DAY Inhalation Solution Prescription Detail 1 INHALATION NEEDED FOUR TIMES A DAY FOR Difficulty Breathing Acetaminophen 325MG 550233 650 MILLIGRAMS NEEDED ORAL 06/28/2020 09:36 Oral Tablet EVERY 4 HOURS Prescription Detail TAKE 650 MILLIGRAMS ORAL NEEDED EVERY 4 HOURS Amitriptyline HCl 50MG 698663 50 MILLIGRAMS BEDTIME ORAL 06/28/2020 09:36 Oral Tablet Prescription Detail TAKE 50 MILLIGRAMS ORAL BEDT МАРИЯ Atorvastatin Calcium 145904 20 MILLIGRAMS EVERY EVENING ORAL 06/28/2020 09:36 20MG Oral Tablet Prescription Detail TAKE 20 MILLIGRAMS ORAL EVER Y EVENING Budesonide 0.5MG/2ML 120821 1 EACH DAILY INHALATION 06/28/2020 09:36 Inhalation Suspension Prescription Detail 1 EACH INHALATION DAILY Cetirizine 10MG Oral 0133233 10 MILLIGRAMS BEDTIME ORAL 06/28/2020 09:36 Tablet Prescription Detail TAKE 10 MILLIGRAMS ORAL BEDT МАРИЯ Famotidine 20MG 883316 20 MILLIGRAMS NEEDED TWICE ORAL 06/28/2020 09:36 Oral Tablet DAILY Prescription Detail TAKE 20 MILLIGRAMS ORAL N EEDED TWICE DAILY Ipratropium 4405386 1 EACH NEEDED INHALATION 09:36 [place]-Albuterol Sulfate 0.5MG/3ML-3MG/3ML Inhalation Solution Prescription Detail 1 EACH INHALATION NEEDED Lidocaine-Prilocaine 193747 1 EACH NEEDED TOPICAL 1 2.5%-2.5% Topical APPLICATION 09 :36 application Cream Prescription Detail 1 EACH TOPICAL APPLICATION NEEDED Losartan Potassium 100MG 475904 100 MILLIGRAMS DAILY ORAL 06/28/2020 09:36 Oral Tablet Prescription Detail TAKE 100 MILLIGRAMS ORAL PARRIS LY Magnesium 500 MG Oral 558336 2 TABLET THREE TIMES A DAY ORAL 06/28/2020 09:36 Tablet Prescription Detail TAKE 2 TABLET ORAL THREE CELSO ES A DAY Morphine Sulfate 60MG 458378 60 MILLIGRAMS TWICE A DAY ORAL 06/28/2020 09:36 Oral Capsule, Extended Release Prescription Detail TAKE 60 MILLIGRAMS ORAL TWIC E A DAY Narcan 4MG/0.1ML Nasal [place] 6997563 1 EACH NEEDED NASAL 06/28/2020 09:36 Prescription Detail SPRAY 1 EACH NASAL NEEDED Omeprazole 40MG Oral 20021106 40 MILLIGRAMS DAILY ORAL 06/28/2020 09:36 Capsule, Delayed Release Prescription Detail TAKE 40 MILLIGRAMS ORAL BETTY Y Ondansetron 4MG Oral Tablet 973977 1 TABLET DAILY ORAL 06/28/2020 09:36 Prescription Detail TAKE 1 TABLET ORAL DAILY Polyethylene Glycol 97938160130 1 EACH NEEDED DAILY ORAL 06/28/2020 09:36 17GM/1Dose Oral Powder for Solution Prescription Detail TAKE 1 EACH ORAL NEEDED D AILY PreserVision Areds 2 NA 08015904129 2 CAPSULE DAILY ORAL 06/28/2020 09:36 Oral Capsule, Liquid Filled Prescription Detail TAKE 2 CAPSULE ORAL DAILY ProAir HFA 219891 2 PUFF NEEDED INHALATION 06/28/20 09:36 0.09MG/1Actuation THREE TIMES A Inhalation Suspension DAY Prescription Detail 2 PUFF INHALATION NEEDED THREE TIMES A DAY Pulmicort Flexhaler 399938 2 PUFF TWICE A DAY INHALATION 06/28/2020 09:36 90MCG/1Act Inhalation Powder Prescription Detail 2 PUFF INHALATION TWICE A D AY Spironolactone 25MG Oral 656378 25 MILLIGRAMS DAILY ORAL 06/28/2020 09:36 Tablet Prescription Detail TAKE 25 MILLIGRAMS ORAL BETTY Y Torsemide 20MG Oral Tablet 572549 1 TABLET DAILY ORAL 06/28/2020 09:36 Prescription Detail TAKE 1 TABLET ORAL DAILY Vitamin D3 979804 0212 INTERNATIONAL UNITS DAILY ORAL 1 09:36 1000IU Oral Tablet Prescription Detail TAKE 1000 INTERNATIONAL UNIT S ORAL DAILY Ondansetron 4MG Oral 818889 4 MILLIGRAMS BEFORE MEALS ORAL 06/28/2020 09:35 Tablet, Disintegrating Prescription Detail TAKE 4 MILLIGRAMS ORAL BEFOR E MEALS predniSONE 5MG Oral 336300 5 MILLIGRAMS DAILY WITH FOOD ORAL 06/28/2020 09:35 Tablet Prescription Detail TAKE 5 MILLIGRAMS ORAL DAILY WITH FOOD Refresh Ophthalmic 581365 1 EACH NEEDED OPTHALMIC 0 10/20/2019 12:16 Solution Prescription Detail 1 EACH OPTHALMIC NEEDED Avastin 25MG/1ML Intravenous 3291887 [id number] IVPB 10/20/2019 12:15 Solution Prescription Detail IVPB [id number] Mapap 325MG Oral 479008 650 MILLIGRAMS NEEDED EVERY ORAL 10/20/2019 12:14 Tablet 4 HOURS Prescription Detail TAKE 650 MILLIGRAMS ORAL NEEDED EVERY 4 HOURS amLODIPine Besylate 10MG 352671 10 MILLIGRAMS DAILY ORAL 08/06/2019 11:13 Oral Tablet Prescription Detail TAKE 10 MILLIGRAMS ORAL BETTY Y Aspirin 81MG Oral Tablet, 495309 81 MILLIGRAMS DAILY ORAL 08/16/2018 10:22 Enteric Coated Prescription Detail TAKE 81 MILLIGRAMS ORAL BETTY Y Cymbalta 60MG Oral Capsule, 686843 60 MILLIGRAMS DAILY ORAL 08/16/2018 10:22 Delayed Release Prescription Detail TAKE 60 MILLIGRAMS ORAL BETTY Y Medications Administered During Visit Unknown or Not Available. Encounters Encounter Diagnosis Diagnosis Code Start Date Encounter for antineoplastic immunotherapy [id number] 05/09/2021 Social History Smoking Status Code Start Date End Date Current every day smoker 766218844 Patient Decision Aids Unknown or Not Available. Discharge Instructions You were admitted to [facility] on 05/09/2021 11:09 with a principal diagnosis of Encounter for antineoplasti c immunotherapy You had the following tests done: CBC W / DIFFERENTIAL COMPREHENSIVE METABOLIC PANEL (CMP) MAGNESIUM SERUM You were discharged from [facility] on 05/09/2021 11:09 Should you [...]
--- OUTSIDE RECORDS SUMMARY | 2022-03-28 01:24 | XMS_ITS | Encounter Summary ---
:1945 Author Organization [facility] Address [address] [place] [address] Care Team Providers Name Role Phone Unavailable Primary Care Provider Unavailable Encounter Details Date Type Department Care Team Description 10/21/2006 Before [facility] - Juan Crabtree Converted Visit Maple conversion MD Raghav (Maple) [address] [facility] [address] [place], [place] [address] [place] [address] [address], [address] [place] [address] (Wo rk) Social History Tobacco Use Types Packs/Day Years Used Date Never Assessed Sex Assigned at Date Recorded Not on file documented as of this encounter Progress Notes Juan Crabtree MD - 08/02/2009 0258 EST DIVISION OF CARDIOTHORACIC SURGERY PROGRESS/FOLLOWUP NOTE - 10/21/2006 Darvin Mendez M.D. [address] [place] [address], [address] [place] [address] Dear Darvin: Thank you for the opportunity [...] MD Tomas Vasquez ID: tape Document ID: [id number] cc: Darvin Mendez M.D* Jerry Jauregui M.D.* documented in this encounter Plan of Treatment Not on filedocumented as of this encounter Visit Diagnoses Not on filedocumented in this encounter
--- OUTSIDE RECORDS SUMMARY | 2022-03-28 01:24 | XMS_ITS | CCD ---
:1945 Author Care Team Providers Name Role Phone RADHA VANN, CLEOPATRA Gómez Attending Physician Unavailable Vital Signs Unknown or Not Available. Allergies Allergy Code Allergy Type Reaction Status PENICILLINS (CLASS) 0 Drug allergy pt doesn't know Activ e TETRACYCLINE 91946 Drug allergy Active Procedures Unknown or Not Available. History of Immunizations Unknown or Not Available. Problems Problem Code Start Date Resolved Date Status CHRONIC AIRWAY OBSTRUCTION 58434261 A ctive HX OF BRONCHOGENIC MALIGNANCY 777868889 Active MULTIPLE SCLEROSIS 66831724 Active Hyperemesis 356256079 Active HTN 73301694 Active Acute respiratory failure with hypoxia 36764278 Active COPD with exacerbation 849620181 Activ e Cancer of lung 63208122 Active Acute CHF 82391942 Active Hypertension 43044625 Active Near syncope 172585730 Active Dehydration 81989681 Active High troponin I level 300363974 Active Acute exacerbation of COPD 726702665 08/07/2021 A ctive Results Unknown or Not Available. Active Medications Medication Code Dose Units Frequency Route Modification Start Date/Time predniSONE 10MG 737630 1 TABLET DAILY ORAL 08/07/20 21 Oral Tablet 15:21 Prescription Detail TAKE 5 TABS ORAL FOR 2 DAYS, THEN 4 TABS FOR 2 DAYS, THEN 3 TABS FOR 2 DAYS, THEN 2 TABS FOR 2 DAYS, THEN 1 TAB FOR 2 DAYS Ipratropium 6478778 1 NEEDED INHALATION 021 15:20 [place]-Albuterol Sulfate FOUR TIMES A 0.5MG/3ML-3MG/3ML DAY Inhalation Solution Prescription Detail 1 INHALATION NEEDED FOUR TIMES A DAY FOR Difficulty Breathing Acetaminophen 325MG 437993 650 MILLIGRAMS NEEDED ORAL 06/28/2020 09:36 Oral Tablet EVERY 4 HOURS Prescription Detail TAKE 650 MILLIGRAMS ORAL NEEDED EVERY 4 HOURS Amitriptyline HCl 50MG 123774 50 MILLIGRAMS BEDTIME ORAL 06/28/2020 09:36 Oral Tablet Prescription Detail TAKE 50 MILLIGRAMS ORAL BEDT МАРИЯ Atorvastatin Calcium 415716 20 MILLIGRAMS EVERY EVENING ORAL 06/28/2020 09:36 20MG Oral Tablet Prescription Detail TAKE 20 MILLIGRAMS ORAL EVER Y EVENING Budesonide 0.5MG/2ML 173353 1 EACH DAILY INHALATION 06/28/2020 09:36 Inhalation Suspension Prescription Detail 1 EACH INHALATION DAILY Cetirizine 10MG Oral 6355043 10 MILLIGRAMS BEDTIME ORAL 06/28/2020 09:36 Tablet Prescription Detail TAKE 10 MILLIGRAMS ORAL BEDT МАРИЯ Famotidine 20MG 623576 20 MILLIGRAMS NEEDED TWICE ORAL 06/28/2020 09:36 Oral Tablet DAILY Prescription Detail TAKE 20 MILLIGRAMS ORAL N EEDED TWICE DAILY Ipratropium 8473637 1 EACH NEEDED INHALATION 020 09:36 [place]-Albuterol Sulfate 0.5MG/3ML-3MG/3ML Inhalation Solution Prescription Detail 1 EACH INHALATION NEEDED Lidocaine-Prilocaine 614521 1 EACH NEEDED TOPICAL 1 2.5%-2.5% Topical APPLICATION 09 :36 application Cream Prescription Detail 1 EACH TOPICAL APPLICATION NEEDED Losartan Potassium 100MG 318331 100 MILLIGRAMS DAILY ORAL 06/28/2020 09:36 Oral Tablet Prescription Detail TAKE 100 MILLIGRAMS ORAL PARRIS LY Magnesium 500 MG Oral 056249 2 TABLET THREE TIMES A DAY ORAL 06/28/2020 09:36 Tablet Prescription Detail TAKE 2 TABLET ORAL THREE CELSO ES A DAY Morphine Sulfate 60MG 612987 60 MILLIGRAMS TWICE A DAY ORAL 06/28/2020 09:36 Oral Capsule, Extended Release Prescription Detail TAKE 60 MILLIGRAMS ORAL TWIC E A DAY Narcan 4MG/0.1ML Nasal [place] 6786713 1 EACH NEEDED NASAL 06/28/2020 09:36 Prescription Detail SPRAY 1 EACH NASAL NEEDED Omeprazole 40MG Oral 20021106 40 MILLIGRAMS DAILY ORAL 06/28/2020 09:36 Capsule, Delayed Release Prescription Detail TAKE 40 MILLIGRAMS ORAL BETTY Y Ondansetron 4MG Oral Tablet 802291 1 TABLET DAILY ORAL 06/28/2020 09:36 Prescription Detail TAKE 1 TABLET ORAL DAILY Polyethylene Glycol 30758962142 1 EACH NEEDED DAILY ORAL 06/28/2020 09:36 17GM/1Dose Oral Powder for Solution Prescription Detail TAKE 1 EACH ORAL NEEDED D AILY PreserVision Areds 2 NA 68365971270 2 CAPSULE DAILY ORAL 06/28/2020 09:36 Oral Capsule, Liquid Filled Prescription Detail TAKE 2 CAPSULE ORAL DAILY ProAir HFA 341578 2 PUFF NEEDED INHALATION 06/28/20 09:36 0.09MG/1Actuation THREE TIMES A Inhalation Suspension DAY Prescription Detail 2 PUFF INHALATION NEEDED THREE TIMES A DAY Pulmicort Flexhaler 355431 2 PUFF TWICE A DAY INHALATION 06/28/2020 09:36 90MCG/1Act Inhalation Powder Prescription Detail 2 PUFF INHALATION TWICE A D AY Spironolactone 25MG Oral 111308 25 MILLIGRAMS DAILY ORAL 06/28/2020 09:36 Tablet Prescription Detail TAKE 25 MILLIGRAMS ORAL BETTY Y Torsemide 20MG Oral Tablet 035067 1 TABLET DAILY ORAL 06/28/2020 09:36 Prescription Detail TAKE 1 TABLET ORAL DAILY Vitamin D3 132615 9724 INTERNATIONAL UNITS DAILY ORAL 1 09:36 1000IU Oral Tablet Prescription Detail TAKE 1000 INTERNATIONAL UNIT S ORAL DAILY Ondansetron 4MG Oral 648574 4 MILLIGRAMS BEFORE MEALS ORAL 06/28/2020 09:35 Tablet, Disintegrating Prescription Detail TAKE 4 MILLIGRAMS ORAL BEFOR E MEALS predniSONE 5MG Oral 305493 5 MILLIGRAMS DAILY WITH FOOD ORAL 06/28/2020 09:35 Tablet Prescription Detail TAKE 5 MILLIGRAMS ORAL DAILY WITH FOOD Refresh Ophthalmic 081593 1 EACH NEEDED OPTHALMIC 0 10/20/2019 12:16 Solution Prescription Detail 1 EACH OPTHALMIC NEEDED Avastin 25MG/1ML Intravenous 9033746 R2VSLSD IVPB 10/20/2019 12:15 Solution Prescription Detail IVPB [id number] Mapap 325MG Oral 913217 650 MILLIGRAMS NEEDED EVERY ORAL 10/20/2019 12:14 Tablet 4 HOURS Prescription Detail TAKE 650 MILLIGRAMS ORAL NEEDED EVERY 4 HOURS amLODIPine Besylate 10MG 557379 10 MILLIGRAMS DAILY ORAL 08/06/2019 11:13 Oral Tablet Prescription Detail TAKE 10 MILLIGRAMS ORAL BETTY Y Aspirin 81MG Oral Tablet, 523178 81 MILLIGRAMS DAILY ORAL 08/16/2018 10:22 Enteric Coated Prescription Detail TAKE 81 MILLIGRAMS ORAL BETTY Y Cymbalta 60MG Oral Capsule, 975916 60 MILLIGRAMS DAILY ORAL 08/16/2018 10:22 Delayed Release Prescription Detail TAKE 60 MILLIGRAMS ORAL BETTY Y Medications Administered During Visit Unknown or Not Available. Encounters Unknown or Not Available. Social History Smoking Status Code Start Date End Date Current every day smoker 386003163 Patient Decision Aids Unknown or Not Available. Discharge Instructions You were admitted to [facility] on 06/10/2021 21:54 You were discharged from [facility] on 06/10/2021 21:54 Should you have [...]
--- OUTSIDE RECORDS SUMMARY | 2022-03-28 01:24 | XMS_ITS | Encounter Summary ---
:1945 Author Organization [facility] Address [address] [place] [address] Care Team Providers Name Role Phone Unavailable Primary Care Provider Unavailable Encounter Details Date Type Department Care Team Description 11/06/2006 Results Only EP5 LUNG CTR MDCer Lung Kade [facility] MD Raghav [address] [address] [place], [place] [address] (Wo rk) Social History Tobacco Use Types Packs/Day Years Used Date Never Assessed Sex Assigned at Date Recorded Not on file documented as of this encounter Plan of Treatment Not on filedocumented as of this encounter Procedures Procedure Name Priority Date/Time Associated Diagnosis Comme [facility] SURGICAL PATHOLOGY Routine 11/06/2006 0:00 EST [...] [facility]. ??These stains demonstrate tumor invasion into the visceral pleura. ??The d iagnosis is unchanged. ??(Dr. Leggett)/[facility] Document reviewed and electronically signed [...] who agrees with the above diagnoses. ??(Dr. Landaverde)/[facility] [place] Document reviewed and electronically signed by: Roman [...] additional masses or nodules are grossly evident. ??Crm Developer sections are submitted as fo llows: BLOCK GA A1 ?Vascular margins, en face A2 ?Lobar bronchial margin, en face A3 ?Peribronchial lymph node A4, A5 ?Represe ntative sections of mass and adjacent lung parenchyma A6 ?Lung parenchyma adjacent to mass A7-A9 ?Crm Developer secti ons of parenchyma uninvolved with mass A10 ?Medial resection margin adjacent to the staple margins and bronchial/vascular margins A11-A15 ? Remaining mass (Dr. Landaverde)/[facility] End of Report Specimen Performing Organization Address City/State/ZIP Code Phon e Number [facility] [address] [place] [address] SERVICES [facility] [address] [place] [address] documented in this encounter Visit Diagnoses Not on filedocumented in this encounter
--- OUTSIDE RECORDS SUMMARY | 2022-03-28 01:24 | XMS_ITS | Encounter Summary ---
:[address] [facility] Address [address] [place] [address] Care Team Providers Name Role Phone Unavailable Primary Care Provider Unavailable Encounter Details Date Type Department Care Team Description 04/11/2004 Hospital Encounter [facility] Tomas Mendoza [facility] DO [address] [facility] [address] [place] [address] [place] [address] (Wo rk) Social History Tobacco Use Types [...] Organization Address City/State/ZIP Code Phon e Number [facility] [address] [facility] [address] [facility] [address] [place], [place] [address] documented in this encounter Visit Diagnoses Not on filedocumented in this encounter
--- OUTSIDE RECORDS SUMMARY | 2022-03-28 01:24 | XMS_ITS | Encounter Summary ---
:1945 Author Organization [facility] Address [address] [place] [address] Care Team Providers Name Role Phone Unavailable Primary Care Provider Unavailable Encounter Details Date Type Department Care Team Description 10/12/2006 Hospital Encounter [facility] - Deric Mendez MD [address] [facility] [address] [place] [address] [address] [place] [id number] (Wo rk) Social History Tobacco Use Types Packs/Day Years Used Date Never Assessed Sex Assigned at Date Recorded Not on file documented as of this encounter Discharge Disposition Disposition Code Departure Means Destination Auto Discharge documented in this encounter Plan of Treatment Not on filedocumented as of this encounter Procedures Procedure Name Priority Date/Time Associated Diagnosis Comme nts NM PET LUNG INITIAL 10/12/2006 11:50 Resu lts for this ATAGE EST procedure are i n the results section. documented in this encounter Results NM PET LUNG INITIAL ATAGE (10/12/2006 11:50 EST) Anatomical Region Laterality Modality Other Specimen Narrative [facility] - 04/07/2009 5: 52 EDT NEW DX LUNG CA CLINICAL HISTORY: ??History of breast ca ncer with newly diagnosed lung cancer. ??Here for initial staging. ??Ru le out metastasis. COMPARISON: ??Outside CT from [facility] was n ot available for review at the time of this dictation. TECHNIQUE: Approximately one hour following the IV injection of 15.5 mCi of F-18 Fluorodeoxyglucose, 3D PET imaging was o btained from the head to the upper thighs using a combined PET /CT [employer] ST system with dedicated closed ring PET de tectors and CT attenuation correction. The blood glucose level prio r to the injection was 86 mg/dl. The injection site was in the lef t antecubital fossa. FINDINGS: ??A 14 mm. nodule is again not ed within the right lower lobe which is unchanged from the CT guided bi opsy from 09/10/06. ??This demonstrates no evidence of increased FD G uptake. The remainder of the chest, abdomen and pelvis demonstrat e no evidence of increased FDG activity. Review of the CT images demonstrates the patient to be s/p cholecystectomy. IMPRESSION: 1. ? Known right lower lobe no dule consistent with a biopsy proven lung cancer, however, no evidence of increased FDG uptake. 2. ? No evidence of metastatic disease. D: ? 10/12/06 T: ? 10/14/06 /amn I have personally reviewed the images an d the above interpretation and agree with the findings. Procedure Note Heidi Lemus MD / Olman Dietrich MD - 04/07/2009 NEW DX LUNG CA CLINICAL HISTORY: History of breast canc er with newly diagnosed lung cancer. Here for initial staging. Rule o ut metastasis. COMPARISON: Outside CT from [facility] was not available for review at the time of this dictation. TECHNIQUE: Approximately one hour following the IV injection of 15.5 mCi of F-18 Fluorodeoxyglucose, 3D PET imaging was o btained from the head to the upper thighs using a combined PET /CT [employer] ST system with dedicated closed ring PET de tectors and CT attenuation correction. The blood glucose level prio r to the injection was 86 mg/dl. The injection site was in the lef t antecubital fossa. FINDINGS: A 14 mm. nodule is again noted within the right lower lobe which is unchanged from the CT guided bi opsy from 09/10/06. This demonstrates no evidence of increased FD G uptake. The remainder of the chest, abdomen and pelvis demonstrat e no evidence of increased FDG activity. Review of the CT images demonstrates the patient to be s/p cholecystectomy. IMPRESSION: 1. Known right lower lobe nodule consist ent with a biopsy proven lung cancer, however, no evidence of increased FDG uptake. 2. No evidence of metastatic disease. /amn I have personally reviewed the images an d the above interpretation and agree with the findings. Performing Organization Address City/State/ZIP Code Phon e Number [facility] [address] [place] [address] [facility] [address] [place], [place] [address] documented in this encounter Visit Diagnoses Not on filedocumented in this encounter
--- OUTSIDE RECORDS SUMMARY | 2022-03-28 01:24 | XMS_ITS | Encounter Summary ---
:1945 Author Organization [facility] Address [address] [place] [address] Care Team Providers Name Role Phone Unavailable Primary Care Provider Unavailable Encounter Details Date Type Department Care Team Description 02/17/2006 Hospital Encounter [facility] Darvin Mendez Radiology - Main Abelardo Pimentel MD [address] [facility] [address] [place] [address] [address] [place] [address] (Wo rk) Social History Tobacco [...] LAB Report Status Final [facility] [id number] Specimen Performing Organization Address City/State/ZIP Code Phon e Number [facility] [address] [place] [address] SERVICES [facility] [address] [place] [address] AFB CULTURE/SMEAR, OTHER (02/17/2006 17:42 EDT) Specimen Description Fluid [facility] >1ml Acid Fast No acid-fast [facility] bacilli seen Result No acid-fast [facility] bacilli isolated Report Status Final [facility] [id number] Specimen Performing Organization Address City/[facility]/ZIP Code Phon e Number [facility] [address] [place] [address] SERVICES [facility] [address] [place] [address] ANAEROBE CULTURE/SMEAR(INC. AEROBES), FLUID (02/17/2006 17:42 EDT) Specimen Description Fluid [facility] <1ml lung biopsy LAB Gram Smear Result No polys seen [facility] No mononuclear cells seen. LAB No bacteria seen Result No growth [facility] Report Status Final [facility] [id number] LAB Specimen Performing Organization Address City/[facility]/ZIP Code Phon e Number [facility] [address] [place] [address] SERVICES [facility] [address] [place] [address] documented in this encounter Visit Diagnoses Not on filedocumented in this encounter
--- OUTSIDE RECORDS SUMMARY | 2022-03-28 01:25 | XMS_ITS | CCD ---
:1945 Author Care Team Providers Name Role Phone RADHA VANN, CLEOPATRA Gómez Attending Physician Unavailable Vital Signs Unknown or Not Available. Allergies Allergy Code Allergy Type Reaction Status PENICILLINS (CLASS) 0 Drug allergy pt doesn't know Activ e TETRACYCLINE 29180 Drug allergy Active Procedures Unknown or Not Available. History of Immunizations Unknown or Not Available. Problems Problem Code Start Date Resolved Date Status CHRONIC AIRWAY OBSTRUCTION 43893482 A ctive HX OF BRONCHOGENIC MALIGNANCY 161799161 Active MULTIPLE SCLEROSIS 23493592 Active Hyperemesis 719150663 Active HTN 87683070 Active Acute respiratory failure with hypoxia 59826173 Active COPD with exacerbation 946477015 Activ e Cancer of lung 59194209 Active Acute CHF 27379306 Active Hypertension 31742828 Active Near syncope 827850801 Active Dehydration 10422549 Active High troponin I level 701647290 Active Acute exacerbation of COPD 310935093 08/07/2021 A ctive Results COMPREHENSIVE METABOLIC PANEL [...] 34 mmol/L L=22 H= 34 ANION GAP 29908-4 4.0 mmol/L CALCIUM SERUM 40432-4 9.4 mg/dL L=8.2 H=10.2 BILIRUBIN TOTAL 1975-2 0.3 mg/dL L=0.0 H=1.3 ALK. PHOS. 6768-6 119 U/L L=46 H=116 SGOT (AST) 1920-8 9 U/L L=15 H=37 SGPT (ALT) 1742-6 17 U/L L=12 H=78 TOTAL PROTEIN 2885-2 6.4 gm/dL L=6.0 H=8.0 ALBUMIN 1751-7 3.5 gm/dL L=3.4 H=5.0 AGE 75 years eGFR (non-Afr.Amer.) 00310-7 60 mL/min eGFR (Afr-Latvian) 72325-9 73 mL/min MAGNESIUM SERUM - Collect Date/Time: 09:25 Test Name Code Test Result Test Units Test Ref Range MAGNESIUM 40801-3 1.9 mg/dL L=1.8 H=2.4 CBC W/ DIFFERENTIAL - Collect Date/Time: 06/26/2021 09:25 Test Name Code Test Result Test Units Test Ref Range WBC 6690-2 9.64 th/cmm L=5.00 H=10.00 NEUT % 80.6 % L=40.0 H=80.0 LYMPH % 8.8 % L=10.0 H=50.0 MONO % 86953-0 8.6 % L=2.0 H=12.0 EOS % 1.0 % L=0.0 H=8.0 BASO % 0.6 % L=0.0 H=3.0 IG % 2514-8 0.4 % L=0.0 H=1.1 NRBC % 69291-4 0.0 % L=0.0 H=0.0 NEUT abs count 751-8 7.8 th/cmm L=1.6 H=8.4 LYMPH abs count 731-0 0.9 th/cmm L=1.5 H=4.0 MONO abs count 742-7 0.8 th/cmm L=0.2 H=1.0 EOS abs count 711-2 0.1 th/cmm L=0.0 H=0.5 BASO abs count 704-7 0.1 th/cmm L=0.0 H=0.2 IG abs count 93116-8 0.0 th/cmm L=0.0 H=0.1 NRBC abs count 34282-3 0.0 mil/cmm L=0.0 H=0.0 RBC 789-8 3.69 [...] Appearance 5767-9 CLEAR N/A clear Glucose urine 13304-3 NEGATIVE N/A negative mg/dl Bilirubin 5770-3 NEGATIVE N/A negative Ketones 2514-8 NEGATIVE N/A negative mg/dl Spec gravity 5811-5 1.010 N/A 1.003 - 1.030 pH urine 2756-5 6.5 N/A 5.0 - 7.0 Protein 04178-7 NEGATIVE N/A negative mg/dl Urobilinogen 86692-7 0.2 N/A <or= 1 EU/dl Nitrite. 5802-4 NEGATIVE N/A negative Blood 5794-3 NEGATIVE N/A negative Leukocytes. SMALL N/A negative WBCs. 18521-8 10-25 N/A 0-5 / hpf RBCs none N/A 0-5 / hpf Epith cells 11498-7 10-25 N/A 0-5 / hpf Cell types squamous N/A Crystals amorphous N/A none Bacteria minimal N/A none Mucus none N/A none Casts none N/A none /lpf Active Medications Medications Administered During Visit Unknown or Not Available. Encounters Encounter Diagnosis Diagnosis Code Start Date Encounter for antineoplastic immunotherapy [id number] 06/26/2021 Social History Smoking Status Code Start Date End Date Current every day smoker [id number] Patient Decision Aids Unknown or Not Available. Discharge Instructions You were admitted to [facility] 01 on 06/26/2021 08:49 with a principal diagnosis of Encounter for antineoplasti c immunotherapy You had the following tests done: URINA LYSIS WITH MICRO AND REFLEX CULTURE CBC W/ DIFFERENTIAL COMPREHENSIVE METABOLIC RUFFIN EL (CMP) MAGNESIUM SERUM You were discharged from [facility] on 06/26/2021 08:49 Should you have [...]
--- OUTSIDE RECORDS SUMMARY | 2022-03-28 01:25 | XMS_ITS | CCD ---
:1945 Author Care Team Providers Name Role Phone RADHA VANN, CLEOPATRA Gómez Attending Physician Unavailable Vital Signs Unknown or Not Available. Allergies Allergy Code Allergy Type Reaction Status PENICILLINS (CLASS) 0 Drug allergy pt doesn't know Activ e TETRACYCLINE 18692 Drug allergy Active Procedures Unknown or Not Available. History of Immunizations Unknown or Not Available. Problems Problem Code Start Date Resolved Date Status CHRONIC AIRWAY OBSTRUCTION 51683339 A ctive HX OF BRONCHOGENIC MALIGNANCY 003634102 Active MULTIPLE SCLEROSIS 72323660 Active Hyperemesis 653237869 Active HTN 08464141 Active Acute respiratory failure with hypoxia 45688678 Active COPD with exacerbation 244491519 Activ e Cancer of lung 08109626 Active Acute CHF 76729245 Active Hypertension 07705862 Active Near syncope 305960890 Active Dehydration 34606096 Active High troponin I level 568840669 Active Acute exacerbation of COPD 311391809 08/07/2021 A ctive Results COMPREHENSIVE METABOLIC PANEL [...] 33 mmol/L L=22 H= 34 ANION GAP 87828-8 5.2 mmol/L CALCIUM SERUM 14734-0 9.4 mg/dL L=8.2 H=10.2 BILIRUBIN TOTAL 1975-2 0.3 mg/dL L=0.0 H=1.3 ALK. PHOS. 6768-6 115 U/L L=46 H=116 SGOT (AST) 1920-8 8 U/L L=15 H=37 SGPT (ALT) 1742-6 30 U/L L=12 H=78 TOTAL PROTEIN 2885-2 6.3 gm/dL L=6.0 H=8.0 ALBUMIN 1751-7 3.5 gm/dL L=3.4 H=5.0 AGE 75 years eGFR (non-Afr.Amer.) 15591-3 57 mL/min eGFR (Afr-Northern Irish) 06037-5 69 mL/min MAGNESIUM SERUM - Collect Date/Time: 04/2021 12:45 Test Name Code Test Result Test Units Test Ref Range MAGNESIUM 28019-7 2.0 mg/dL L=1.8 H=2.4 TSH THYROID STIMULATING HORMONE - [facility] t Date/Time: 06/05/2021 12:45 Test Name Code Test Result Test Units Test Ref Range TSH 3014-8 2.370 uIU/mL L=0.360 H=3.740 CBC W/ DIFFERENTIAL - Collect Date/Time: 06/05/2021 12:45 Test Name Code Test Result Test Units Test Ref Range WBC 6690-2 8.64 th/cmm L=5.00 H=10.00 NEUT % 82.3 % L=40.0 H=80.0 LYMPH % 8.9 % L=10.0 H=50.0 MONO % 34718-0 6.9 % L=2.0 H=12.0 EOS % 0.9 % L=0.0 H=8.0 BASO % 0.7 % L=0.0 H=3.0 IG % 2514-8 0.3 % L=0.0 H=1.1 NRBC % 57931-8 0.0 % L=0.0 H=0.0 NEUT abs count 751-8 7.1 th/cmm L=1.6 H=8.4 LYMPH abs count 731-0 0.8 th/cmm L=1.5 H=4.0 MONO abs count 742-7 0.6 th/cmm L=0.2 H=1.0 EOS abs count 711-2 0.1 th/cmm L=0.0 H=0.5 BASO abs count 704-7 0.1 th/cmm L=0.0 H=0.2 IG abs count 28323-9 0.0 th/cmm L=0.0 H=0.1 NRBC abs count 05387-5 0.0 mil/cmm L=0.0 H=0.0 RBC 789-8 3.56 [...] Frequency Route Modification Start Date/Time predniSONE 10MG 263691 1 TABLET DAILY ORAL 08/07/20 21 Oral Tablet 15:21 Prescription Detail TAKE 5 TABS ORAL FOR 2 DAYS, THEN 4 TABS FOR 2 DAYS, THEN 3 TABS FOR 2 DAYS, THEN 2 TABS FOR 2 DAYS, THEN 1 TAB FOR 2 DAYS Ipratropium 8350962 1 NEEDED INHALATION 021 15:20 What Cheer-Albuterol Sulfate FOUR TIMES A 0.5MG/3ML-3MG/3ML DAY Inhalation Solution Prescription Detail 1 INHALATION NEEDED FOUR TIMES A DAY FOR Difficulty Breathing Acetaminophen 325MG 852687 650 MILLIGRAMS NEEDED ORAL 06/28/2020 09:36 Oral Tablet EVERY 4 HOURS Prescription Detail TAKE 650 MILLIGRAMS ORAL NEEDED EVERY 4 HOURS Amitriptyline HCl 50MG 707319 50 MILLIGRAMS BEDTIME ORAL 06/28/2020 09:36 Oral Tablet Prescription Detail TAKE 50 MILLIGRAMS ORAL BEDT МАРИЯ Atorvastatin Calcium 942229 20 MILLIGRAMS EVERY EVENING ORAL 06/28/2020 09:36 20MG Oral Tablet Prescription Detail TAKE 20 MILLIGRAMS ORAL EVER Y EVENING Budesonide 0.5MG/2ML 253478 1 EACH DAILY INHALATION 06/28/2020 09:36 Inhalation Suspension Prescription Detail 1 EACH INHALATION DAILY Cetirizine 10MG Oral 4842908 10 MILLIGRAMS BEDTIME ORAL 06/28/2020 09:36 Tablet Prescription Detail TAKE 10 MILLIGRAMS ORAL BEDT МАРИЯ Famotidine 20MG 919960 20 MILLIGRAMS NEEDED TWICE ORAL 06/28/2020 09:36 Oral Tablet DAILY Prescription Detail TAKE 20 MILLIGRAMS ORAL N EEDED TWICE DAILY Ipratropium 0978227 1 EACH NEEDED INHALATION 020 09:36 What Cheer-Albuterol Sulfate 0.5MG/3ML-3MG/3ML Inhalation Solution Prescription Detail 1 EACH INHALATION NEEDED Lidocaine-Prilocaine 959685 1 EACH NEEDED TOPICAL 1 2.5%-2.5% Topical APPLICATION 09 :36 application Cream Prescription Detail 1 EACH TOPICAL APPLICATION NEEDED Losartan Potassium 100MG 834567 100 MILLIGRAMS DAILY ORAL 06/28/2020 09:36 Oral Tablet Prescription Detail TAKE 100 MILLIGRAMS ORAL PARRIS LY Magnesium 500 MG Oral 763016 2 TABLET THREE TIMES A DAY ORAL 06/28/2020 09:36 Tablet Prescription Detail TAKE 2 TABLET ORAL THREE CELSO ES A DAY Morphine Sulfate 60MG 626927 60 MILLIGRAMS TWICE A DAY ORAL 06/28/2020 09:36 Oral Capsule, Extended Release Prescription Detail TAKE 60 MILLIGRAMS ORAL TWIC E A DAY Narcan 4MG/0.1ML Nasal [place] 0721515 1 EACH NEEDED NASAL 06/28/2020 09:36 Prescription Detail SPRAY 1 EACH NASAL NEEDED Omeprazole 40MG Oral 20021106 40 MILLIGRAMS DAILY ORAL 06/28/2020 09:36 Capsule, Delayed Release Prescription Detail TAKE 40 MILLIGRAMS ORAL BETTY Y Ondansetron 4MG Oral Tablet 843309 1 TABLET DAILY ORAL 06/28/2020 09:36 Prescription Detail TAKE 1 TABLET ORAL DAILY Polyethylene Glycol 81814997109 1 EACH NEEDED DAILY ORAL 06/28/2020 09:36 17GM/1Dose Oral Powder for Solution Prescription Detail TAKE 1 EACH ORAL NEEDED D AILY PreserVision Areds 2 NA 70281833190 2 CAPSULE DAILY ORAL 06/28/2020 09:36 Oral Capsule, Liquid Filled Prescription Detail TAKE 2 CAPSULE ORAL DAILY ProAir HFA 038861 2 PUFF NEEDED INHALATION 06/28/20 09:36 0.09MG/1Actuation THREE TIMES A Inhalation Suspension DAY Prescription Detail 2 PUFF INHALATION NEEDED THREE TIMES A DAY Pulmicort Flexhaler 963944 2 PUFF TWICE A DAY INHALATION 06/28/2020 09:36 90MCG/1Act Inhalation Powder Prescription Detail 2 PUFF INHALATION TWICE A D AY Spironolactone 25MG Oral 679897 25 MILLIGRAMS DAILY ORAL 06/28/2020 09:36 Tablet Prescription Detail TAKE 25 MILLIGRAMS ORAL BETTY Y Torsemide 20MG Oral Tablet 492742 1 TABLET DAILY ORAL 06/28/2020 09:36 Prescription Detail TAKE 1 TABLET ORAL DAILY Vitamin D3 710174 2476 INTERNATIONAL UNITS DAILY ORAL 1 09:36 1000IU Oral Tablet Prescription Detail TAKE 1000 INTERNATIONAL UNIT S ORAL DAILY Ondansetron 4MG Oral 836640 4 MILLIGRAMS BEFORE MEALS ORAL 06/28/2020 09:35 Tablet, Disintegrating Prescription Detail TAKE 4 MILLIGRAMS ORAL BEFOR E MEALS predniSONE 5MG Oral 099940 5 MILLIGRAMS DAILY WITH FOOD ORAL 06/28/2020 09:35 Tablet Prescription Detail TAKE 5 MILLIGRAMS ORAL DAILY WITH FOOD Refresh Ophthalmic 971771 1 EACH NEEDED OPTHALMIC 0 10/20/2019 12:16 Solution Prescription Detail 1 EACH OPTHALMIC NEEDED Avastin 25MG/1ML Intravenous 5200276 N7WAMIF IVPB 10/20/2019 12:15 Solution Prescription Detail IVPB [id number] Mapap 325MG Oral 689500 650 MILLIGRAMS NEEDED EVERY ORAL 10/20/2019 12:14 Tablet 4 HOURS Prescription Detail TAKE 650 MILLIGRAMS ORAL NEEDED EVERY 4 HOURS amLODIPine Besylate 10MG 736555 10 MILLIGRAMS DAILY ORAL 08/06/2019 11:13 Oral Tablet Prescription Detail TAKE 10 MILLIGRAMS ORAL BETTY Y Aspirin 81MG Oral Tablet, 850348 81 MILLIGRAMS DAILY ORAL 08/16/2018 10:22 Enteric Coated Prescription Detail TAKE 81 MILLIGRAMS ORAL BETTY Y Cymbalta 60MG Oral Capsule, 054711 60 MILLIGRAMS DAILY ORAL 08/16/2018 10:22 Delayed Release Prescription Detail TAKE 60 MILLIGRAMS ORAL BETTY Y Medications Administered During Visit Unknown or Not Available. Encounters Encounter Diagnosis Diagnosis Code Start Date Encounter for antineoplastic immunotherapy [id number] 06/05/2021 Social History Smoking Status Code Start Date End Date Current every day smoker [id number] Patient Decision Aids Unknown or Not Available. Discharge Instructions You were admitted to [facility] on 06/05/2021 12:25 with a principal diagnosis of Encounter for antineoplasti c immunotherapy You had the following tests done: CBC W / DIFFERENTIAL COMPREHENSIVE METABOLIC PANEL (CMP) MAGNESIUM SERUM TSH THYROID STIMUL ATING HORMONE You were discharged from [facility] 01 on 06/05/2021 12:25 Should you [...]
[2022-03-28] MEDS: Barium Sulfate 2% W/V-Creamy Vanilla Smoothie 450 ML BTL PO (08:12)
== END ==
PROVIDERS: PCP Family Medicine; Visit Provider Nurse Practitioner Adult Health
DX: J90 Pleural effusion, not elsewhere classified (principal); R91.8 Other nonspecific abnormal finding of lung field; C34.32 Malignant neoplasm of lower lobe, left bronchus or lung; Z90.49 Acquired absence of other specified parts of digestive tract
CPT/HCPCS: 71250; 74150

== ENCOUNTER 2022-04-07 12:30 | Outpatient (RCR) | payer MEDICARE, MEDICAID, SELFPAY ==
[2022-04-07] MEDS: Normal Saline Flush 10 ML SYR IVP (12:46)
[2022-04-07 13:00] LABS: Abs Immature Grans 0.01 10^3/uL (0.0-0.06); Absolute Basophil Count 0.06 10^3/uL (0.0-0.2); Absolute Lymphocyte Count 0.97 10^3/uL (1.2-3.4); Absolute Monocyte Count 0.75 10^3/uL (0.1-0.8); Absolute Neutrophil Count 6.29 10^3/uL (1.2-6.7); Basophils % 0.7; Eosinophils % 1.2; HGB 11.2 g/dL (11.2-15.7); Immature Grans % 0.1; Lymphocytes % 11.9; MCH 28.4 pg (27.0-33.0); MCHC 31.1 % (32.0-36.0); MCV 91 fL (80-95); MPV 12.7 fL (8.0-11.0); Monocytes % 9.2; Neutrophils % 76.9; Platelet Count 211 10^3/uL (130-400); RBC 3.94 10^6/uL (3.93-5.22); RDW 15.5 % (11.7-14.6); RDW-SD 51.6 fL; WBC 8.18 10^3/uL (4.4-10.8)
[2022-04-07 13:25] LABS: ALT 20 U/L (14-59); AST 13 U/L (15-37); Albumin 3.6 g/dL (3.4-5.0); Alkaline Phosphatase 106 U/L (46-116); BUN 29 mg/dL (7-18); Bilirubin, Total 0.3 mg/dL (0.2-1.0); Calcium 9.5 mg/dL (8.5-10.1); Chloride 96 mmol/L (98-107); Estimated GFR 54.05 (mL/min/1.73m2); FREE T4 1.07 ng/dL (0.76-1.46); Glucose 127 mg/dL (74-106); Magnesium 1.8 mg/dL (1.8-2.4); Potassium 4.3 mmol/L (3.5-5.1); Sodium 136 mmol/L (136-145); TSH 1.75 uIU/mL (0.36-3.74); Total Protein 6.3 g/dL (6.4-8.2)
[2022-04-07 13:38] LABS: Iron 71 ug/dL (50-170)
[2022-04-07 14:07] LABS: Ferritin 48 ng/mL (8-252); Vitamin B12 > 2000 pg/mL (193-986)
== END 2022-04-27 23:59 | disposition home or self-care (01) ==
LOC: INF 12:30
PROVIDERS: PCP Family Medicine; Visit Provider Nurse Practitioner Adult Health
DX: C34.32 Malignant neoplasm of lower lobe, left bronchus or lung (principal); Z79.899 Other long term (current) drug therapy; Z45.2 Encounter for adjustment and management of vascular access device
CPT/HCPCS: 36591; 80053; 82607; 82728; 83540; 83735; 84439; 84443; 85025

== ENCOUNTER 2022-04-10 09:41 | Emergency (ER) | payer MEDICARE, MEDICAID, SELFPAY ==
[2022-04-10 09:45] VITALS: BP 152/55; PULSE 80; RESP 18; TEMP 36.4; O2SAT 98
--- NOTE | 2022-04-10 09:46 | ED.GENADUL_ITS ---
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 Mental Status: mental status grossly normal Speech and Movement: speech and movement normal Affect: normal affect Thought Process: normal
[2022-04-10 10:19] VITALS: PULSE 81; RESP 19; O2SAT 98
[2022-04-10 10:20] VITALS: PULSE 80; RESP 19; O2SAT 99
--- NOTE | 2022-04-10 10:30 | DI.CT_ITS ---
Exam(s) CT HEAD CERVICAL SPINE WO EXAM: CT HEAD CERVICAL SPINE WO CLINICAL HISTORY: s/p head injury, neck and R arm pain, r/o acute fx. TECHNIQUE: Imaging Protocol: Axial computed tomography images with coronal and sagittal reformatted images were created and reviewed COMPARISON: No exams were available for comparison FINDINGS: The examination is limited due to patient motion artifact. CT Head: Ventricles and Extra axial spaces: Normal in size and morphology for the patient's age. Hemorrhage: None. Cerebral parenchyma: No acute territorial infarct is present. There are areas of decreased attenuati on in the white matter most consistent with small vessel ischemic disease. Midline shift: None. Brainstem/Cerebellum: Normal. Calvarium: Normal. Visualized Paranasal sinuses/Mastoids: Clear. Soft Tissues: Unremarkable. CT Cervical Spine: Bones: No acute fracture or subluxation. Degenerative changes are seen in the cervical spine. Soft Tissues: Unremarkable. There is a 2.4 cm hypodense nodule in the right thyroid gland. Nonemerge nt thyroid ultrasound is recommended for further evaluation. Lung Apices: Clear. IMPRESSION: 1. No acute intracranial process. 2. No acute fracture or subluxation in the cervical spine. 3. 2.4 cm hypodense right thyroid nodule. Nonemergent thyroid ultrasound is recommended for further evaluation. 4. Results of this exam have been verbally communicated with provider. RADIATION DOSE DELIVERED: 1,167.98mGy.cm Total DLP DATA REPOSITORY: All CT scans at this facility are submitted to the National Radiology Data Registry (NRDR) Dose Index Registry (DIR) with the [employer] ([employer]). RADIATION OPTIMIZATION: All CT scans at this facility use at least one of these dose optimization te chniques: automated exposure control; mA and/or kV adjustment per patient size (includes targeted exa ms where dose is matched to clinical indication); or iterative reconstruction.
--- NOTE | 2022-04-10 10:30 | RT.EKG_ITS ---
APPROVED REPORT Exam: Resting ECG Reason for Exam: R arm pain Patient Location: E HR:81 bpm ECG Measurements Heart Rate 81 AXIS IN 138 P 66 QRSd 82 QRS 55 QT 396 T 88 QTc 459 Conclusion Sinus rhythm...normal P axis, V-rate 60- 99 Nonspecific T abnormalities, lateral leads...T <-0.10mV, I aVL V5 V6. Sinus. Normal axis. No STEMI. I have reviewed and interpreted ECG and agree with software generated interpretation.
--- NOTE | 2022-04-10 10:30 | DI.RAD_ITS ---
Exam(s) XR CHEST 2V PA LATERAL EXAM: XR CHEST 2V PA LATERAL CLINICAL HISTORY: weakness, r/o acute disease TECHNIQUE: 2D digital imaging was performed of the chest. Two images were obtained. PA and lateral views were obtained. COMPARISON: CT CT CHEST/ABD WO from 03/28/2022 FINDINGS: MEDIASTINUM: Normal. HEART: Normal. PULMONARY VASCULATURE: Normal. LUNGS: There is scarring or atelectasis in the right lung base. No focal consolidating infiltrates a re present. PLEURAL SPACE: There is a right pleural effusion seen on the lateral view. This was present on the r ecent CT scan of the chest abdomen and pelvis. BONE:Within normal limits for the patient's age. OTHER FINDINGS:There is a indwelling central venous catheter. The tip is in good position in the sup erior vena cava. IMPRESSION: 1. There is not appear to be any significant change in appearance of the chest x-ray compared to the CT scan from 03/28/2022. 2. Persistent right pleural effusion. 3. Scarring in the right lung base. DATA REPOSITORY: RADIATION DOSE DELIVERED:
[2022-04-10 10:34] LABS: Bilirubin Negative (Negative); Blood Negative (Negative); Clarity Clear (Clear); Glucose Negative (Negative); Ketones Negative (Negative); Leukocyte Esterase Trace (Negative); Nitrite Negative (Negative); Urobilinogen 0.2 EU/dL (Up TO 0.2); pH 5.5 (5-8)
[2022-04-10 10:34] LABS: Abs Immature Grans 0.03 10^3/uL (0.0-0.06); Absolute Basophil Count 0.03 10^3/uL (0.0-0.2); Absolute Eosinophil Count 0.03 10^3/uL (0.0-0.7); Absolute Lymphocyte Count 0.47 10^3/uL (1.2-3.4); Absolute Monocyte Count 0.86 10^3/uL (0.1-0.8); Absolute Neutrophil Count 11.42 10^3/uL (1.2-6.7); Basophils % 0.2; Eosinophils % 0.2; HCT 34.6 % (36.0-46.0); HGB 10.4 g/dL (11.2-15.7); Immature Grans % 0.2; Lymphocytes % 3.7; MCHC 30.1 % (32.0-36.0); MCV 93 fL (80-95); MPV 11.7 fL (8.0-11.0); Monocytes % 6.7; Platelet Count 189 10^3/uL (130-400); RBC 3.71 10^6/uL (3.93-5.22); RDW-SD 51.2 fL; WBC 12.83 10^3/uL (4.4-10.8)
[2022-04-10 10:42] LABS: Bacteria Few HPF (Negative); C & S Indicated? Yes; Casts Negative LPF (Negative); Crystals Negative HPF (Negative); Epithelial Cells Rare HPF (Negative); Mucus Negative (Negative); RBC Negative HPF (0-2)
[2022-04-10 10:46] LABS: Lactate 0.4 mmol/L (0.6-1.4)
[2022-04-10 10:53] LABS: ALT 21 U/L (14-59); AST 12 U/L (15-37); Albumin 3.4 g/dL (3.4-5.0); Alkaline Phosphatase 108 U/L (46-116); Anion Gap 5.7 mmol/L (3-11); BUN 50 mg/dL (7-18); Bilirubin, Total 0.6 mg/dL (0.2-1.0); CO2 33.3 mmol/L (21.0-32.0); Calcium 9.3 mg/dL (8.5-10.1); Chloride 97 mmol/L (98-107); ESR 16 mm/hr (0-30); Estimated GFR 54.05 (mL/min/1.73m2); Glucose 108 mg/dL (74-106); Magnesium 2.4 mg/dL (1.8-2.4); Potassium 4.5 mmol/L (3.5-5.1); Sodium 136 mmol/L (136-145); Total Protein 6.1 g/dL (6.4-8.2); Troponin I < 50 ng/L (<or=60)
[2022-04-10] MEDS: Normal Saline 250 ML 500 ML IV (10:57)
[2022-04-10 10:58] LABS: C-Reactive Protein 3.86 mg/dL (0.0-0.3)
--- NOTE | 2022-04-10 11:00 | DI.RAD_ITS ---
Exam(s) XR HAND RT COMPLETE EXAM: XR HAND RT COMPLETE CLINICAL HISTORY: R hand swelling and pain, r/o acute findings. TECHNIQUE: 2D digital imaging was performed of the right hand. Three images were obtained. AP, late ral and oblique views were obtained. COMPARISON: No exams were available for comparison FINDINGS: BONES: No acute fracture is present. No bony destructive lesion is seen. JOINTS: No dislocation present. There are marked degenerative changes seen at the 1st CMC joint. SOFT TISSUE: Normal. IMPRESSION: No acute abnormality. DATA REPOSITORY: RADIATION DOSE DELIVERED:
[2022-04-10 11:59] VITALS: BP 139/61; PULSE 78; RESP 17; O2SAT 95
--- NOTE | 2022-04-10 14:15 | DI.US_ITS ---
Exam(s) US UPPER EXTREMITY VENOUS RT EXAM: US UPPER EXTREMITY VENOUS RT CLINICAL HISTORY: R arm pain, r/o dvt. TECHNIQUE: Ultrasound examination of the right upper extremity venous system(s) is performed using g rayscale, color-flow, and spectral Doppler analysis. COMPARISON: No exams were available for comparison FINDINGS: The right internal jugular, axillary, subclavian, cephalic, basilic, brachial, radial, and ulnar vein s are patent without evidence of thrombosis. IMPRESSION: 1. No DVT. 2. Results of this exam have been verbally communicated with provider. DATA REPOSITORY:
[2022-04-10] MEDS: levoFLOXacin 500 MG, levoFLOXacin 250 MG 750 MG PO (14:43)
[2022-04-10] MEDS: levoFLOXacin 500 MG TAB 1500 MG PO (16:45)
== END 2022-04-10 16:59 | disposition home or self-care (01) ==
PROVIDERS: Emergency Provider Physician Assistant; PCP Family Medicine
DX: N39.0 Urinary tract infection, site not specified (principal); M79.601 Pain in right arm; M79.89 Other specified soft tissue disorders; R53.1 Weakness; I10 Essential (primary) hypertension; J44.9 Chronic obstructive pulmonary disease, unspecified; F17.210 Nicotine dependence, cigarettes, uncomplicated; Z79.51 Long term (current) use of inhaled steroids
CPT/HCPCS: 36415; 80053; 85652; 87077; 93005; 96360; 99284; 70450; 71046; 72125; 73130; 81003; 81015; 83605; 83735; 84484; 85025; 86140; 87086; 87186; 93010; 93971; 99285

== ENCOUNTER 2022-04-22 12:58 | Inpatient (IN) | payer MEDICARE, MEDICAID, SELFPAY ==
[2022-04-22] VITALS (71 sets, daily range): BP systolic 90–157; BP diastolic 31–112; PULSE 68–123; RESP 5–28; TEMP 31–37.2; O2SAT 84–97
--- NOTE | 2022-04-22 12:45 | DI.CT_ITS ---
Exam(s) CT CHEST PE CTA EXAM: CT CHEST PE CTA CLINICAL HISTORY: Shortness of breath with hypoxia, history of CA. TECHNIQUE: Imaging Protocol: Axial CT angiography was performed with multi-slice acquisition and mu lti-planar and/or 3D reconstructions. CONTRAST MATERIAL: Intravenous: Omnipaque 350 contrast volume:100 mL COMPARISON: CT CT CHEST/ABD W from 10/29/[address] CHEST PE CTA from 01/06/[address] CHEST/ABD WO from 03/28/2022 FINDINGS: Tracheobronchial tree: Patent where visualized. Pulmonary parenchyma: There is a stable 6 mm nodule in the left lingula. There is stable pleural and parenchymal scarring in the lungs. The pleural based nodular infiltrate in the medial aspect of the right upper lobe is unchanged. Scattered small opacities in the lungs particularly the left upper l obe are unchanged. Pulmonary Arteries: No evidence of filling defect to suggest pulmonary emboli. Mediastinum and Iesha: Stable enlarged mediastinal lymph nodes. The esophagus is unremarkable. Visualized thyroid gland: There is a stable hypodense round right thyroid nodule. Nonemergent thyroi d ultrasound should be considered for further evaluation. Pleura: There is a stable loculated right pleural effusion. No Ritu left pleural effusion or pneumot horax. Heart: Mild cardiomegaly. Coronary artery calcifications are present. No pericardial effusion. Aorta: Thoracic aorta non-dilated. No evidence of dissection. Atherosclerosis is present. Upper abdomen: Status post cholecystectomy. Soft tissues: There is a 5.9 cm lipoma in the subcutaneous tissues of the right chest wall. Bones: Within normal limits for the patient's age.There are old healed rib fractures. There has been no change in the appearance of the ribs adjacent to the right loculated effusion. There has been no change in appearance of the T8 compression deformity. IMPRESSION: 1. No evidence of pulmonary embolism, thoracic aortic dissection or aneurysm. 2. Otherwise stable appearance of the chest since 03/28/2022. 3. Results of this exam have been verbally communicated with provider. RADIATION DOSE DELIVERED: 301.89mGy.cm Total DLP DATA REPOSITORY: All CT scans at this facility are submitted to the National Radiology Data Registry (NRDR) Dose Index Registry (DIR) with the [employer] ([employer]). RADIATION OPTIMIZATION: All CT scans at this facility use at least one of these dose optimization te chniques: automated exposure control; mA and/or kV adjustment per patient size (includes targeted exa ms where dose is matched to clinical indication); or iterative reconstruction.
--- NOTE | 2022-04-22 13:15 | RT.EKG_ITS ---
APPROVED REPORT Exam: Resting ECG Reason for Exam: shortness of breath Patient Location: E HR:71 bpm ECG Measurements Heart Rate 71 AXIS IA 147 P 34 QRSd 82 QRS 49 QT 390 T 14 QTc 424 Conclusion Sinus rhythm...normal P axis, V-rate 60- 99 Low voltage, extremity leads...all extremity leads <0.5mV
[2022-04-22] MEDS: Albuterol/Ipratropium 3 ML UPD VIAL UPD ×2 (13:20→21:26)
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
[2022-04-22] MEDS: methylPREDNISolone SUCC 125 MG VIAL IVP (13:36)
[2022-04-22 13:38] LABS: Source Nasal/Nares
[2022-04-22 13:40] LABS: HCO3 (Venous) 43 mmol/L (23-28); O2 Sat (Venous) 92 %; TCO2 (Venous) 41 mmol/L (24-29); pH (Venous) 7.33 (7.31-7.41); pO2 (Venous) 67 mmHg
[2022-04-22 13:41] LABS: Abs Immature Grans 0.02 10^3/uL (0.0-0.06); Absolute Basophil Count 0.06 10^3/uL (0.0-0.2); Absolute Eosinophil Count 0.06 10^3/uL (0.0-0.7); Absolute Lymphocyte Count 0.45 10^3/uL (1.2-3.4); Absolute Monocyte Count 0.58 10^3/uL (0.1-0.8); Basophils % 0.6; Eosinophils % 0.6; HCT 34.6 % (36.0-46.0); HGB 10.2 g/dL (11.2-15.7); Immature Grans % 0.2; Lymphocytes % 4.8; MCH 28.1 pg (27.0-33.0); MCHC 29.5 % (32.0-36.0); MCV 95 fL (80-95); MPV 11.4 fL (8.0-11.0); Monocytes % 6.1; Neutrophils % 87.7; Platelet Count 221 10^3/uL (130-400); RBC 3.63 10^6/uL (3.93-5.22); RDW 15.5 % (11.7-14.6); RDW-SD 54.4 fL; WBC 9.47 10^3/uL (4.4-10.8)
[2022-04-22 13:42] LABS: BE (Venous) > 15 mmol/L (-2-3); pCO2 (Venous) 83 mmHg (41-51)
[2022-04-22 14:07] LABS: ALT 20 U/L (14-59); AST 14 U/L (15-37); Albumin 3.4 g/dL (3.4-5.0); Alkaline Phosphatase 117 U/L (46-116); BUN 27 mg/dL (7-18); Bilirubin, Total 0.3 mg/dL (0.2-1.0); CREATININE 0.9 mg/dL (0.55-1.02); Calcium 9.6 mg/dL (8.5-10.1); Chloride 95 mmol/L (98-107); Glucose 129 mg/dL (74-106); Magnesium 2.1 mg/dL (1.8-2.4); NT-proBNP 7870 pg/mL (<300); Potassium 4.6 mmol/L (3.5-5.1); Sodium 136 mmol/L (136-145); Total Protein 6.2 g/dL (6.4-8.2)
--- OUTSIDE RECORDS SUMMARY | 2022-04-22 14:07 | XMS_ITS | Encounter Summary ---
:1945 Author Organization [facility] [place] [address] Care Team Providers Name Role Phone Arianna Nunez MD Primary Care Provider Reason for Visit Reason Comments Chemotherapy Cycle 7, Day 1 - Pembrolizum ab Treatment/Therapy Plan Authorization (Routine) - Pending Review Specialty Diagnoses / Procedures Referred By Contact Refer red To Contact Diagnoses 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 Secondary malignant neoplasm of liver Medication management Yovanny Carlson MD [facility] Hem Onc Office Procedures [address] HEMATOLOGY/[place] [phone] Fax: Referral ID Status Reason Start Date Expiration Date Visits V isits Requested Authorized [id number] Pending 09/28/2021 09/27/2022 99 99 Review Encounter Details Date Type Department Care Team Description 03/03/2022 Infusion Hematology Oncology at [facility] malignant neoplasm of liver; [facility] Medication management; [address] [place] [address] Primary malignant neoplasm o f left lower lobe of lung [place], [place] [phone] Social History Tobacco Use Types Packs/Day Years Used Date Current Every Day Smoker Cigarettes 0.25 63 Smokeless Tobacco: Never Used Comments: 1 cigarette daily Sex Assigned at Date Recorded Not on file documented as of this encounter Progress Notes Nadia Espinosa RN - 03/03/2022 1:30 PM EDT INFUSION [...] Encounters Date Type Specialty Care Team Description 04/28/2022 Office Visit Hematology and Oncology Orin Summers APRN [facility] HEMATOLOGY AND [address], [place] [address] (Wo rk) 04/28/2022 Infusion Hematology and Oncology documented as of [...] Job Aid: Adult Flushing & Catheter Care (7561) job aid for additional information regarding guidelines [...] Job Aid: Adult Flushing & Catheter Care (0114) job aid for additional information regarding guidelines and administration., Routine documented in this encounter Care Teams It Security Administrator Relationship Specialty Start Date End Date Arianna Nunez MD PCP - General Family Medicine 10/28/21 [address] [place] [address] documented as of this encounter
--- OUTSIDE RECORDS SUMMARY | 2022-04-22 14:07 | XMS_ITS | CCD ---
:1945 Author Care Team Providers Name Role Phone JEROD VEGA Attending Physician Unavailable Vital Signs Unknown or Not Available. Allergies Allergy Code Allergy Type Reaction Status PENICILLINS (CLASS) 0 Drug allergy pt doesn't know Activ e TETRACYCLINE 92734 Drug allergy Active Procedures Unknown or Not Available. History of Immunizations Unknown or Not Available. Problems Problem Code Start Date Resolved Date Status CHRONIC AIRWAY OBSTRUCTION 15207590 A ctive HX OF BRONCHOGENIC MALIGNANCY 873862275 Active MULTIPLE SCLEROSIS 81489472 Active Hyperemesis 838610578 Active HTN 36625689 Active Acute respiratory failure with hypoxia 33544831 Active COPD with exacerbation 606787085 Activ e Cancer of lung 21908372 Active Acute CHF 79875737 Active Hypertension 04916546 Active Near syncope 600691839 Active Dehydration 57670962 Active High troponin I level 591560938 Active Acute exacerbation of COPD 119995508 08/07/2021 A ctive Results Unknown or Not Available. Active Medications Medication Code Dose Units Frequency Route Modification Start Date/Time predniSONE 10MG 273966 1 TABLET DAILY ORAL 08/07/20 21 Oral Tablet 15:21 Prescription Detail TAKE 5 TABS ORAL FOR 2 DAYS, THEN 4 TABS FOR 2 DAYS, THEN 3 TABS FOR 2 DAYS, THEN 2 TABS FOR 2 DAYS, THEN 1 TAB FOR 2 DAYS Ipratropium 6836487 1 NEEDED INHALATION 021 15:20 [place]-Albuterol Sulfate FOUR TIMES A 0.5MG/3ML-3MG/3ML DAY Inhalation Solution Prescription Detail 1 INHALATION NEEDED FOUR TIMES A DAY FOR Difficulty Breathing Acetaminophen 325MG 213890 650 MILLIGRAMS NEEDED ORAL 06/28/2020 09:36 Oral Tablet EVERY 4 HOURS Prescription Detail TAKE 650 MILLIGRAMS ORAL NEEDED EVERY 4 HOURS Amitriptyline HCl 50MG 904436 50 MILLIGRAMS BEDTIME ORAL 06/28/2020 09:36 Oral Tablet Prescription Detail TAKE 50 MILLIGRAMS ORAL BEDT МАРИЯ Atorvastatin Calcium 473383 20 MILLIGRAMS EVERY EVENING ORAL 06/28/2020 09:36 20MG Oral Tablet Prescription Detail TAKE 20 MILLIGRAMS ORAL EVER Y EVENING Budesonide 0.5MG/2ML 974381 1 EACH DAILY INHALATION 06/28/2020 09:36 Inhalation Suspension Prescription Detail 1 EACH INHALATION DAILY Cetirizine 10MG Oral 6814251 10 MILLIGRAMS BEDTIME ORAL 06/28/2020 09:36 Tablet Prescription Detail TAKE 10 MILLIGRAMS ORAL BEDT МАРИЯ Famotidine 20MG 262748 20 MILLIGRAMS NEEDED TWICE ORAL 06/28/2020 09:36 Oral Tablet DAILY Prescription Detail TAKE 20 MILLIGRAMS ORAL N EEDED TWICE DAILY Ipratropium 5904533 1 EACH NEEDED INHALATION 020 09:36 [place]-Albuterol Sulfate 0.5MG/3ML-3MG/3ML Inhalation Solution Prescription Detail 1 EACH INHALATION NEEDED Lidocaine-Prilocaine 363966 1 EACH NEEDED TOPICAL 1 2.5%-2.5% Topical APPLICATION 09 :36 application Cream Prescription Detail 1 EACH TOPICAL APPLICATION NEEDED Losartan Potassium 100MG 570067 100 MILLIGRAMS DAILY ORAL 06/28/2020 09:36 Oral Tablet Prescription Detail TAKE 100 MILLIGRAMS ORAL PARRIS LY Magnesium 500 MG Oral 080200 2 TABLET THREE TIMES A DAY ORAL 06/28/2020 09:36 Tablet Prescription Detail TAKE 2 TABLET ORAL THREE CELSO ES A DAY Morphine Sulfate 60MG 479342 60 MILLIGRAMS TWICE A DAY ORAL 06/28/2020 09:36 Oral Capsule, Extended Release Prescription Detail TAKE 60 MILLIGRAMS ORAL TWIC E A DAY Narcan 4MG/0.1ML Nasal [place] 9350407 1 EACH NEEDED NASAL 06/28/2020 09:36 Prescription Detail SPRAY 1 EACH NASAL NEEDED Omeprazole 40MG Oral 20021106 40 MILLIGRAMS DAILY ORAL 06/28/2020 09:36 Capsule, Delayed Release Prescription Detail TAKE 40 MILLIGRAMS ORAL BETTY Y Ondansetron 4MG Oral Tablet 475358 1 TABLET DAILY ORAL 06/28/2020 09:36 Prescription Detail TAKE 1 TABLET ORAL DAILY Polyethylene Glycol 92733680113 1 EACH NEEDED DAILY ORAL 06/28/2020 09:36 17GM/1Dose Oral Powder for Solution Prescription Detail TAKE 1 EACH ORAL NEEDED D AILY PreserVision Areds 2 NA 47908986021 2 CAPSULE DAILY ORAL 06/28/2020 09:36 Oral Capsule, Liquid Filled Prescription Detail TAKE 2 CAPSULE ORAL DAILY ProAir HFA 766762 2 PUFF NEEDED INHALATION 06/28/20 09:36 0.09MG/1Actuation THREE TIMES A Inhalation Suspension DAY Prescription Detail 2 PUFF INHALATION NEEDED THREE TIMES A DAY Pulmicort Flexhaler 468240 2 PUFF TWICE A DAY INHALATION 06/28/2020 09:36 90MCG/1Act Inhalation Powder Prescription Detail 2 PUFF INHALATION TWICE A D AY Spironolactone 25MG Oral 588690 25 MILLIGRAMS DAILY ORAL 06/28/2020 09:36 Tablet Prescription Detail TAKE 25 MILLIGRAMS ORAL BETTY Y Torsemide 20MG Oral Tablet 293727 1 TABLET DAILY ORAL 06/28/2020 09:36 Prescription Detail TAKE 1 TABLET ORAL DAILY Vitamin D3 115651 0597 INTERNATIONAL UNITS DAILY ORAL 1 09:36 1000IU Oral Tablet Prescription Detail TAKE 1000 INTERNATIONAL UNIT S ORAL DAILY Ondansetron 4MG Oral 694215 4 MILLIGRAMS BEFORE MEALS ORAL 06/28/2020 09:35 Tablet, Disintegrating Prescription Detail TAKE 4 MILLIGRAMS ORAL BEFOR E MEALS predniSONE 5MG Oral 647236 5 MILLIGRAMS DAILY WITH FOOD ORAL 06/28/2020 09:35 Tablet Prescription Detail TAKE 5 MILLIGRAMS ORAL DAILY WITH FOOD Refresh Ophthalmic 536194 1 EACH NEEDED OPTHALMIC 0 10/20/2019 12:16 Solution Prescription Detail 1 EACH OPTHALMIC NEEDED Avastin 25MG/1ML Intravenous 0579547 [id number] IVPB 10/20/2019 12:15 Solution Prescription Detail IVPB [id number] Mapap 325MG Oral 839833 650 MILLIGRAMS NEEDED EVERY ORAL 10/20/2019 12:14 Tablet 4 HOURS Prescription Detail TAKE 650 MILLIGRAMS ORAL NEEDED EVERY 4 HOURS amLODIPine Besylate 10MG 064672 10 MILLIGRAMS DAILY ORAL 08/06/2019 11:13 Oral Tablet Prescription Detail TAKE 10 MILLIGRAMS ORAL BETTY Y Aspirin 81MG Oral Tablet, 398595 81 MILLIGRAMS DAILY ORAL 08/16/2018 10:22 Enteric Coated Prescription Detail TAKE 81 MILLIGRAMS ORAL BETTY Y Cymbalta 60MG Oral Capsule, 273913 60 MILLIGRAMS DAILY ORAL 08/16/2018 10:22 Delayed Release Prescription Detail TAKE 60 MILLIGRAMS ORAL BETTY Y Medications Administered During Visit Unknown or Not Available. Encounters Encounter Diagnosis Diagnosis Code Start Date Malignant neoplasm of lower lobe, left bronchus or lung C343 2 09/11/2021 Social History Smoking Status Code Start Date End Date Current every day smoker [id number] Patient Decision Aids Unknown or Not Available. Discharge Instructions You were admitted to [facility] on 09/11/2021 12:45 with a principal diagnosis of Malignant neoplasm of lower lobe, lef t bronchus or lung You were discharged from [facility] on 09/11/2021 12:45 Should you have any questions prior to d ischarge, please contact a member of your healthcare team. If you have left the spital and have any questions, please contact your primary care physician. Chief Complaint and Reason For Visit Unknown or Not Available. Function Status Unknown or Not Available. Plan of Care Unknown or Not Available. Referral/Transition of Care Unknown or Not Available.
--- OUTSIDE RECORDS SUMMARY | 2022-04-22 14:07 | XMS_ITS | Clinical Summary ---
:1945 Author Organization [facility] [place] [address] Care Team Providers Name Role Phone Arianna [...] NEEDED FOR Solution for DIFFICULTY Nebulization [facility] DIRECTED 0 05/03/2021 Active [facility] Spacer DULoxetine DR TAKE 1 CAPSULE [...] Date Type Specialty Care Team Description 04/07/2022 Infusion Hematology and Secondary mal ignant neoplasm of liver; Oncology Medication garima gement; Primary maligna nt neoplasm of left lower lobe of lung 04/07/2022 Office Visit Hematology and Yovanny Carlson, 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; Oncology Secondary malignant neoplasm of liver Orin Summers, [employer] 03/28/2022 Ancillary Radiology Arianna Nunez MD Procedure 03/03/2022 Infusion Hematology and Secondary mal ignant neoplasm of liver; Oncology Medication garima gement; Primary maligna nt neoplasm of left lower lobe of lung 03/03/2022 Office Visit Hematology and Yovanny Carlson, 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; Oncology Wheezing Orin Summers, [employer] 02/04/2022 Refill Hematology and Yovanny Carlson, Oncology 02/03/2022 Infusion Hematology and Secondary mal ignant neoplasm of liver; Oncology Medication garima gement; Primary maligna nt neoplasm of left lower lobe of lung 02/03/2022 Office Visit Hematology and Yovanny Carlson, 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; Oncology Medication management Lanette Dimas, [employer] from Last 3 Months Social History Tobacco Use Types Packs/Day Years Used Date Current Every Day Smoker Cigarettes 0.25 63 Smokeless Tobacco: Never Used Comments: 1 cigarette daily Sex Assigned at Date Recorded Not on file Last Filed Vital Signs Vital Sign Reading Time Taken Comments Blood Pressure 163/79 04/07/2022 1:47 PM EDT Pulse 76 04/07/2022 1:47 PM EDT Temperature 36.5 ??C (97.7 ??F) 04/07/2022 1:47 PM EDT Respiratory Rate 22 04/07/2022 1:47 PM EDT Oxygen Saturation 93% 04/07/2022 1:47 PM 93% on 2L o f oxygen EDT via NC Inhaled Oxygen - - Concentration Weight 76.7 kg (169 lb) 04/07/2022 1:47 PM EDT Height 158.5 cm (5' 2.4) 04/07/2022 1:47 PM EDT Body Mass Index 30.51 04/07/2022 1:47 PM EDT Plan of Treatment Upcoming Encounters Date Type Specialty Care Team Description 04/28/2022 Office Visit Hematology and Oncology Orin Summers APRN [facility] HEMATOLOGY AND O NCOLOGY [place], [place] [address] (Wo rk) 04/28/2022 Infusion Hematology and Oncology Health Maintenance Due Date Last Done Comments Covid-19 Vaccine (#1) 1950 Pneumoccocal Vaccine: 65+ (1 - PCV) 1952 Hepatitis C Screening 1964 Tdap adult 1965 Tetanus vaccine 1965 Colonoscopy 1991 Zoster vaccine (1 of 2) 1996 Advance Directive 2001 Bone Density Scan 2011 Influenza (Flu) vaccine (1 of 1 - Influenza standard 05/29/2022 series) Procedures Procedure Name Priority Date/Time Associated Diagnosis Comme nts LAB SCAN 04/07/2022 12:00 AM Results for this EDT procedure are i n the results section. CT SCAN (SCAN) 04/02/2022 12:00 AM Result s for this EDT procedure are i n the results section. FILM LIBRARY Routine 03/28/2022 12:00 AM Results for this STORAGE ONLY CT EDT procedure ar e in CHEST the results section. LAB SCAN 03/03/2022 12:00 AM Results for this EDT procedure are i n the results section. LAB SCAN 03/03/2022 12:00 AM Results for this EDT procedure are i n the results section. LAB SCAN 02/03/2022 12:00 AM Results for this EDT procedure are i n the results section. from Last 3 Months Results SCAN DOC: LAB (04/07/2022 12:00 AM EDT)Only the most recent of4 resultswithin the time period is included. Narrative This result has an attachment that is no t available. Unknown MEDIA MGR SCAN EXT ORDR/RSLT SCAN DOC: CT SCAN (04/02/2022 12:00 AM EDT) Narrative This result has an attachment that is no t available. Unknown MEDIA MGR SCAN EXT ORDR/RSLT Film Library- Storage Only CT Chest (03/28/2022 12:00 AM EDT) Specimen (Source) Anatomical Location Collection Method / Collectio n Time Received Time / Laterality Volume Narrative RAD - 04/02/2022 2:24 PM EDT This exam is auto-finalizing. It's purpo se is for storage only. Arianna Nunez MD IMG FILM LIBRARY ORDERABLES Performing Organization Address City/State/ZIP Code Phon e Number [place], [place] from Last 3 Months Insurance Payer Benefit Plan / Subscriber ID Effective Dates Phone Addre ss Type Group MEDICARE MEDICARE PART [id number] 2001-Prese [phone] [facility] [place] [address] [place] [id number] 2021-Presen [phone] [address] [place] [address] MEDICAID [facility] MEDICAID [place] [id number] 2021-Presen [phone] [address] [place] [address] Care Teams Commissioning Manager Relationship Specialty Start Date End Date Arianna Nunez MD PCP - General Family Medicine 10/28/[address] [place] [address]
--- OUTSIDE RECORDS SUMMARY | 2022-04-22 14:07 | XMS_ITS | CCD ---
:1945 Author Care Team Providers Name Role Phone CLEOPATRA GARCIA Attending Physician Unavailable Vital Signs Unknown or Not Available. Allergies Allergy Code Allergy Type Reaction Status PENICILLINS (CLASS) 0 Drug allergy pt doesn't know Activ e TETRACYCLINE 46348 Drug allergy Active Procedures Unknown or Not Available. History of Immunizations Unknown or Not Available. Problems Problem Code Start Date Resolved Date Status CHRONIC AIRWAY OBSTRUCTION 60670239 A ctive HX OF BRONCHOGENIC MALIGNANCY 557270823 Active MULTIPLE SCLEROSIS 35095058 Active Hyperemesis 440286431 Active HTN 77638999 Active Acute respiratory failure with hypoxia 33394173 Active COPD with exacerbation 044276199 Activ e Cancer of lung 51468417 Active Acute CHF 64077866 Active Hypertension 94982752 Active Near syncope 326120951 Active Dehydration 19495013 Active High troponin I level 013088792 Active Acute exacerbation of COPD 475014421 08/07/2021 A ctive Results COMPREHENSIVE METABOLIC PANEL (CMP) - Co llect Date/Time: 09/11/2021 14:05 Test Name Code Test Result Test Units Test Ref Range GLUCOSE 2345-7 155 mg/dL L=70 H=116 BUN 3094-0 38 mg/dL L=6 H=25 CREATININE 2160-0 1.15 mg/dL L=0.51 H=0.95 SODIUM SERUM 2951-2 135 mmol/L L=136 H=145 POTASSIUM SERUM 2823-3 4.5 mmol/L L=3.4 H=5.2 CHLORIDE SERUM 2075-0 98 mmol/L L=96 H=110 CARBON DIOXIDE (CO2) 2028-9 35 mmol/L L=22 H= 34 ANION GAP 42719-5 1.8 mmol/L CALCIUM SERUM 57375-7 9.1 mg/dL L=8.2 H=10.2 BILIRUBIN TOTAL 1975-2 0.3 mg/dL L=0.0 H=1.3 ALK. PHOS. 6768-6 120 U/L L=46 H=116 SGOT (AST) 1920-8 11 U/L L=15 H=37 SGPT (ALT) 1742-6 16 U/L L=12 H=78 TOTAL PROTEIN 2885-2 6.0 gm/dL L=6.0 H=8.0 ALBUMIN 1751-7 3.3 gm/dL L=3.4 H=5.0 AGE 76 years eGFR (non-Afr.Amer.) 40319-4 46 mL/min eGFR (Afr-[place]) 66092-1 56 mL/min MAGNESIUM SERUM* - Collect Date/Time: 14:05 Test Name Code Test Result Test Units Test Ref Range MAGNESIUM 47783-8 2.1 mg/dL L=1.8 H=2.4 TSH THYROID STIMULATING HORMONE* - Colle ct Date/Time: 09/11/2021 14:05 Test Name Code Test Result Test Units Test Ref Range TSH 3014-8 1.376 uIU/mL L=0.360 H=3.740 CBC W/ DIFFERENTIAL* - Collect Date/Time : 09/11/2021 14:05 Test Name Code Test Result Test Units Test Ref Range WBC 6690-2 7.91 th/cmm L=5.00 H=10.00 NEUT % 82.8 % L=40.0 H=80.0 LYMPH % 7.6 % L=10.0 H=50.0 MONO % 06053-4 8.1 % L=2.0 H=12.0 EOS % 0.6 % L=0.0 H=8.0 BASO % 0.6 % L=0.0 H=3.0 IG % 2514-8 0.3 % L=0.0 H=1.1 NRBC % 03054-3 0.0 % L=0.0 H=0.0 NEUT abs count 751-8 6.6 th/cmm L=1.6 H=8.4 LYMPH abs count 731-0 0.6 th/cmm L=1.5 H=4.0 MONO abs count 742-7 0.6 th/cmm L=0.2 H=1.0 EOS abs count 711-2 0.1 th/cmm L=0.0 H=0.5 BASO abs count 704-7 0.1 th/cmm L=0.0 H=0.2 IG abs count 64829-1 0.0 th/cmm L=0.0 H=0.1 NRBC abs count 31873-8 0.0 mil/cmm L=0.0 H=0.0 RBC 789-8 3.59 mil/cmm L=3.90 H=5.40 HEMOGLOBIN 718-7 10.1 gm/dL L=12.0 H=16.0 HEMATOCRIT 4544-3 34 % L=37 H=47 MCV 787-2 95 fL L=82 H=92 MCH 785-6 28.1 pg L=27.0 H=31.0 MCHC 786-4 29.7 % L=32.0 H=36.0 RDW-SD 788-0 52.3 fL L=39.0 H=49.0 PLATELET COUNT 777-3 251 th/cmm L=150 H=450 Active Medications Medications Administered During Visit Unknown or Not Available. Encounters Encounter Diagnosis Diagnosis Code Start Date Encounter for antineoplastic immunotherapy Z5112 09/11/2021 Social History Smoking Status Code Start Date End Date Current every day smoker [id number] Patient Decision Aids Unknown or Not Available. Discharge Instructions You were admitted to [facility] on 09/11/2021 12:46 with a principal diagnosis of Encounter for antineoplastic immunoth erapy You had the following tests done: CBC W / DIFFERENTIAL* COMPREHENSIVE METABOLIC PANEL (CMP) MAGNESIUM SERUM* TSH THYROID STIMU LATING HORMONE* You were discharged from [facility] on 09/11/2021 12:46 Should you have any questions prior to [...]
--- OUTSIDE RECORDS SUMMARY | 2022-04-22 14:07 | XMS_ITS | CCD ---
:1945 Author Care Team Providers Name Role Phone CLEOPATRA GARCIA Attending Physician Unavailable Vital Signs Unknown or Not Available. Allergies Allergy Code Allergy Type Reaction Status PENICILLINS (CLASS) 0 Drug allergy pt doesn't know Activ e TETRACYCLINE 45595 Drug allergy Active Procedures Unknown or Not Available. History of Immunizations Unknown or Not Available. Problems Problem Code Start Date Resolved Date Status CHRONIC AIRWAY OBSTRUCTION 02123174 A ctive HX OF BRONCHOGENIC MALIGNANCY 366119564 Active MULTIPLE SCLEROSIS 39543935 Active Hyperemesis 217713890 Active HTN 91419939 Active Acute respiratory failure with hypoxia 32469171 Active COPD with exacerbation 362631787 Activ e Cancer of lung 69489028 Active Acute CHF 76501233 Active Hypertension 54418161 Active Near syncope 108292105 Active Dehydration 10075787 Active High troponin I level 574883126 Active Acute exacerbation of COPD 713310663 08/07/2021 A ctive Results COMPREHENSIVE METABOLIC PANEL (CMP) - Co llect Date/Time: 08/20/2021 10:05 Test Name Code Test Result Test Units Test Ref Range GLUCOSE 2345-7 109 mg/dL L=70 H=116 BUN 3094-0 41 mg/dL L=6 H=25 CREATININE 2160-0 0.93 mg/dL L=0.51 H=0.95 SODIUM SERUM 2951-2 139 mmol/L L=136 H=145 POTASSIUM SERUM 2823-3 4.7 mmol/L L=3.4 H=5.2 CHLORIDE SERUM 2075-0 100 mmol/L L=96 H=110 CARBON DIOXIDE (CO2) 2028-9 38 mmol/L L=22 H= 34 ANION GAP 49769-9 0.6 mmol/L CALCIUM SERUM 95537-8 9.4 mg/dL L=8.2 H=10.2 BILIRUBIN TOTAL 1975-2 0.3 mg/dL L=0.0 H=1.3 ALK. PHOS. 6768-6 103 U/L L=46 H=116 SGOT (AST) 1920-8 9 U/L L=15 H=37 SGPT (ALT) 1742-6 18 U/L L=12 H=78 TOTAL PROTEIN 2885-2 5.9 gm/dL L=6.0 H=8.0 ALBUMIN 1751-7 3.2 gm/dL L=3.4 H=5.0 AGE 75 years eGFR (non-Afr.Amer.) 63881-4 59 mL/min eGFR (Afr-Citizen [place]) 63931-8 71 mL/min MAGNESIUM SERUM* - Collect Date/Time: 10:05 Test Name Code Test Result Test Units Test Ref Range MAGNESIUM 72191-2 2.2 mg/dL L=1.8 H=2.4 CBC W/ DIFFERENTIAL* - Collect Date/Time : 08/20/2021 10:05 Test Name Code Test Result Test Units Test Ref Range WBC 6690-2 13.59 th/cmm L=5.00 H=10.00 NEUT % 86.7 % L=40.0 H=80.0 LYMPH % 4.2 % L=10.0 H=50.0 MONO % 82849-8 7.9 % L=2.0 H=12.0 EOS % 0.4 % L=0.0 H=8.0 BASO % 0.4 % L=0.0 H=3.0 IG % 2514-8 0.4 % L=0.0 H=1.1 NRBC % 96944-8 0.0 % L=0.0 H=0.0 NEUT abs count 751-8 11.8 th/cmm L=1.6 H=8.4 LYMPH abs count 731-0 0.6 th/cmm L=1.5 H=4.0 MONO abs count 742-7 1.1 th/cmm L=0.2 H=1.0 EOS abs count 711-2 0.1 th/cmm L=0.0 H=0.5 BASO abs count 704-7 0.1 th/cmm L=0.0 H=0.2 IG abs count 33478-8 0.1 th/cmm L=0.0 H=0.1 NRBC abs count 12117-2 0.0 mil/cmm L=0.0 H=0.0 RBC 789-8 3.78 mil/cmm L=3.90 H=5.40 HEMOGLOBIN 718-7 10.9 gm/dL L=12.0 H=16.0 HEMATOCRIT 4544-3 36 % L=37 H=47 MCV 787-2 94 fL L=82 H=92 MCH 785-6 28.8 pg L=27.0 H=31.0 MCHC 786-4 30.5 % L=32.0 H=36.0 RDW-SD 788-0 51.8 fL L=39.0 H=49.0 PLATELET COUNT 777-3 269 th/cmm L=150 H=450 Active Medications Medication Code Dose Units Frequency Route Modification Start Date/Time predniSONE 10MG 623503 1 TABLET DAILY ORAL 08/07/20 21 Oral Tablet 15:21 Prescription Detail TAKE 5 TABS ORAL FOR 2 DAYS, THEN 4 TABS FOR 2 DAYS, THEN 3 TABS FOR 2 DAYS, THEN 2 TABS FOR 2 DAYS, THEN 1 TAB FOR 2 DAYS Ipratropium 2795496 1 NEEDED INHALATION 021 15:20 [place]-Albuterol Sulfate FOUR TIMES A 0.5MG/3ML-3MG/3ML DAY Inhalation Solution Prescription Detail 1 INHALATION NEEDED FOUR TIMES A DAY FOR Difficulty Breathing Acetaminophen 325MG 668724 650 MILLIGRAMS NEEDED ORAL 06/28/2020 09:36 Oral Tablet EVERY 4 HOURS Prescription Detail TAKE 650 MILLIGRAMS ORAL NEEDED EVERY 4 HOURS Amitriptyline HCl 50MG 924975 50 MILLIGRAMS BEDTIME ORAL 06/28/2020 09:36 Oral Tablet Prescription Detail TAKE 50 MILLIGRAMS ORAL BEDT МАРИЯ Atorvastatin Calcium 756378 20 MILLIGRAMS EVERY EVENING ORAL 06/28/2020 09:36 20MG Oral Tablet Prescription Detail TAKE 20 MILLIGRAMS ORAL EVER Y EVENING Budesonide 0.5MG/2ML 343112 1 EACH DAILY INHALATION 06/28/2020 09:36 Inhalation Suspension Prescription Detail 1 EACH INHALATION DAILY Cetirizine 10MG Oral 7574793 10 MILLIGRAMS BEDTIME ORAL 06/28/2020 09:36 Tablet Prescription Detail TAKE 10 MILLIGRAMS ORAL BEDT МАРИЯ Famotidine 20MG 143198 20 MILLIGRAMS NEEDED TWICE ORAL 06/28/2020 09:36 Oral Tablet DAILY Prescription Detail TAKE 20 MILLIGRAMS ORAL N EEDED TWICE DAILY Ipratropium 5766033 1 EACH NEEDED INHALATION 020 09:36 [place]-Albuterol Sulfate 0.5MG/3ML-3MG/3ML Inhalation Solution Prescription Detail 1 EACH INHALATION NEEDED Lidocaine-Prilocaine 650420 1 EACH NEEDED TOPICAL 1 2.5%-2.5% Topical APPLICATION 09 :36 application Cream Prescription Detail 1 EACH TOPICAL APPLICATION NEEDED Losartan Potassium 100MG 186605 100 MILLIGRAMS DAILY ORAL 06/28/2020 09:36 Oral Tablet Prescription Detail TAKE 100 MILLIGRAMS ORAL PARRIS LY Magnesium 500 MG Oral 848467 2 TABLET THREE TIMES A DAY ORAL 06/28/2020 09:36 Tablet Prescription Detail TAKE 2 TABLET ORAL THREE CELSO ES A DAY Morphine Sulfate 60MG 902027 60 MILLIGRAMS TWICE A DAY ORAL 06/28/2020 09:36 Oral Capsule, Extended Release Prescription Detail TAKE 60 MILLIGRAMS ORAL TWIC E A DAY Narcan 4MG/0.1ML Nasal Ace 7806948 1 EACH NEEDED NASAL 06/28/2020 09:36 Prescription Detail SPRAY 1 EACH NASAL NEEDED Omeprazole 40MG Oral 20021106 40 MILLIGRAMS DAILY ORAL 06/28/2020 09:36 Capsule, Delayed Release Prescription Detail TAKE 40 MILLIGRAMS ORAL BETTY Y Ondansetron 4MG Oral Tablet 631387 1 TABLET DAILY ORAL 06/28/2020 09:36 Prescription Detail TAKE 1 TABLET ORAL DAILY Polyethylene Glycol 47243340364 1 EACH NEEDED DAILY ORAL 06/28/2020 09:36 17GM/1Dose Oral Powder for Solution Prescription Detail TAKE 1 EACH ORAL NEEDED D AILY PreserVision Areds 2 NA 20536846507 2 CAPSULE DAILY ORAL 06/28/2020 09:36 Oral Capsule, Liquid Filled Prescription Detail TAKE 2 CAPSULE ORAL DAILY ProAir HFA 780362 2 PUFF NEEDED INHALATION 06/28/20 09:36 0.09MG/1Actuation THREE TIMES A Inhalation Suspension DAY Prescription Detail 2 PUFF INHALATION NEEDED THREE TIMES A DAY Pulmicort Flexhaler 690612 2 PUFF TWICE A DAY INHALATION 06/28/2020 09:36 90MCG/1Act Inhalation Powder Prescription Detail 2 PUFF INHALATION TWICE A D AY Spironolactone 25MG Oral 866312 25 MILLIGRAMS DAILY ORAL 06/28/2020 09:36 Tablet Prescription Detail TAKE 25 MILLIGRAMS ORAL BETTY Y Torsemide 20MG Oral Tablet 241204 1 TABLET DAILY ORAL 06/28/2020 09:36 Prescription Detail TAKE 1 TABLET ORAL DAILY Vitamin D3 632881 6637 INTERNATIONAL UNITS DAILY ORAL 1 09:36 1000IU Oral Tablet Prescription Detail TAKE 1000 INTERNATIONAL UNIT S ORAL DAILY Ondansetron 4MG Oral 657045 4 MILLIGRAMS BEFORE MEALS ORAL 06/28/2020 09:35 Tablet, Disintegrating Prescription Detail TAKE 4 MILLIGRAMS ORAL BEFOR E MEALS predniSONE 5MG Oral 116847 5 MILLIGRAMS DAILY WITH FOOD ORAL 06/28/2020 09:35 Tablet Prescription Detail TAKE 5 MILLIGRAMS ORAL DAILY WITH FOOD Refresh Ophthalmic 086140 1 EACH NEEDED OPTHALMIC 0 10/20/2019 12:16 Solution Prescription Detail 1 EACH OPTHALMIC NEEDED Avastin 25MG/1ML Intravenous 6198819 [id number] IVPB 10/20/2019 12:15 Solution Prescription Detail IVPB [id number] Mapap 325MG Oral 627721 650 MILLIGRAMS NEEDED EVERY ORAL 10/20/2019 12:14 Tablet 4 HOURS Prescription Detail TAKE 650 MILLIGRAMS ORAL NEEDED EVERY 4 HOURS amLODIPine Besylate 10MG 015575 10 MILLIGRAMS DAILY ORAL 08/06/2019 11:13 Oral Tablet Prescription Detail TAKE 10 MILLIGRAMS ORAL BETTY Y Aspirin 81MG Oral Tablet, 803255 81 MILLIGRAMS DAILY ORAL 08/16/2018 10:22 Enteric Coated Prescription Detail TAKE 81 MILLIGRAMS ORAL BETTY Y Cymbalta 60MG Oral Capsule, 408579 60 MILLIGRAMS DAILY ORAL 08/16/2018 10:22 Delayed Release Prescription Detail TAKE 60 MILLIGRAMS ORAL BETTY Y Medications Administered During Visit Unknown or Not Available. Encounters Encounter Diagnosis Diagnosis Code Start Date Encounter for antineoplastic immunotherapy Z5112 08/20/2021 Social History Smoking Status Code Start Date End Date Current every day smoker [id number] Patient Decision Aids Unknown or Not Available. Discharge Instructions You were admitted to [facility] on 08/20/2021 09:19 with a principal diagnosis of Encounter for antineoplastic immunoth erapy You had the following tests done: CBC W / DIFFERENTIAL* COMPREHENSIVE METABOLIC PANEL (CMP) MAGNESIUM SERUM* You were discharged from [facility] on 08/20/2021 09:19 Should you have any questions prior to [...]
--- OUTSIDE RECORDS SUMMARY | 2022-04-22 14:07 | XMS_ITS | Encounter Summary ---
:1945 Author Organization [facility] [place] [address] Care Team Providers Name Role Phone Arianna Nunez MD Primary Care Provider Encounter Details Date Type Department Care Team Description 04/07/2022 Office Visit Hematology/Oncology Sheri Carlson MD [facility] HEMATOLOGY/[place] [address] 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; at [facility] Orin Summers APRN [facility] HEMATOLOGY [place] [address] Secondary malignant neoplasm of liver [address] [place] [phone] Social History Tobacco Use Types Packs/Day [...] Mass Index 30.51 04/07/2022 1:47 PM EDT documented in this encounter Progress Notes Yovanny Carlson MD - 04/07/2022 1:45 PM EDT Images from the original note were not included. Hematology & Medical Oncology [address] [phone] Carly Arguelles is being seen for the [...] intent. She has transferred her care to [facility] as she has recently moved. She has a home health nurse and aidthat visit weekly. She lives alone. Has a lifeline. # Metastatic adenocarcinoma of the lung - CT scan from 03.28.22 stable and she is clinically doing well - Labs and toxicities assessed and acceptable for ongoing treatment. - Continue maintenance pembrolizumab - CT from 01/06/22 showed no evidence of PE and stable appearance of right pleural collection and areas of nodularity and scarring. - Likely restage in ~ # Somnolent episodes- May have been related to C02 retention and seems better on lower O2 (2L) - occasionally goes down to 1L. Yovanny Carlson MD, MS 04/05/2022 Medical Oncology & Hematology [facility] HPI/Interval History/Subjective: Last seen 03/03/2022 Doing well overall Left sided chest pain occurs rarely and Madelin described as much better. Last a few minutes and resolves Breathing unchaged on 1-2L O2 nasal cannula (is CO2 retainer she notes) / back pain (chronic issue at baseline)- on chronic morphine Less drowsy now with few naps during day. Sleeps well at night On prednisone 2.5mg daily. Headaches occasional (every three to four days) Uses her nebulizer regularly (two - three daily) No other rashes No diarrhea. Uses Miralax PRN. Has had COVID vaccine and booster. Uses a rolling walker at baseline still smokes two cigarettes daily - no patches/lozenges. Social History/Support Network: Home situation: . in November 2020 which was very difficult.. Moved to [facility] 2021. Lives in [facility] apartments (prior living arrangement that she had with her stepson was deemed unsafe) Lives alone. Working well. Utilizes meals on wheels and RTC services. Uses Medicaid. 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 Also worked in [employer]. Tobacco use: Still smokes 1 cig per day. 50+ pk year hx. Alcohol use: Does not drink. Financial Distress: Limited. Arvind Quigley is her community case manager through [employer] Likes to read and do jigsaw puzzles. Likes mysteries Family History: Mother- Dscd 50 due diabetic complications Father- Dscd due to CHF. Doesn't know a lot of details Oncology Overview: # Malignant neoplasm of female breast ([facility]) 1997: Stage 1 Left ductal breast cancer - T1a,N0,M0,G1 - ER+/NC-. 012 node involvement. - Completed 5 years [...] (AMB) 10/07/2021 10/28/2021 11/20/2021 12/16/2021 01/13/2022 02/03/2022 03/03/2022 Day, Cycle Day 1, Cycle 1 Day 1, Cycle 2 Day 1, Cycle 3 Day 1, Cycle 4 Day 1, Cycle 5 Day 1, Cycle 6Day 1, Cycle 7 pembrolizumab 25 mg/mL (Keytruda) IV 200 mg [...] 13:49 ??? Penicillins Anaphylaxis ??? Tetracycline Anaphylaxis I reviewed the problem list, allergies, medications, [...] in no acute distress. Using rollator walker Physical Exam Constitutional: General: Not in acute distress. HENT: Head: Atraumatic. Eyes: General: No scleral icterus. Right eye: No discharge. Left eye: No discharge. Conjunctiva/sclera: Conjunctivae normal. Pulmonary: Effort: Pulmonary effort is normal. Neurological: General: No focal deficit present. Mental Status: Alert and oriented to person, place, and time. Mental status is at baseline. Psychiatric: Mood and Affect: Mood normal. Behavior: Behavior normal. Thought Content: Thought content normal. Judgment: Judgment normal. Review of Laboratory Data: 04.07.22 White blood cell count 8.18 hemoglobin 11.2 platelet count 211,000 absolute neutrophil count 6.29 Sodium 136 potassium 4.3 BUN 29 creatinine 1.0 glucose 127 calcium 9.5 mag 1.8 total bilirubin 0.3 AST 13 ALT 20 alk phos 106 albumin 3.6 TSH 1.75 Free T4 1.07 ferritin pending 02/03/22 WBC 7.08, Hgb 10.8, MCV 96, [...] neutrophil count 5.42 Review of Imaging Data: 03.28.22 CT Chest (I reviewed the imaging personally which shows stable disease.) Media Information Document Information Radiology and Imaging: External Radiology CT Scan Report ct chest/abd [facility] 03/28/22 04/02/2022 00:00 Attached To: Scan Doc: Ct Scan [[id number]] scans only on 04/02/22 with Unknown Source Information Unknown 01.06.22 CTA performed in the [facility] ED compared to 10/29/2021 No evidence of pulmonary embolism stable appearance of right pleural collection and areas of nodularity and scarring 2.10.19 Review of Pathology Data: documented in this encounter Plan of Treatment Upcoming Encounters Date Type Specialty Care Team Description 04/28/2022 Office Visit Hematology and Oncology Orin Summers APRN [facility] HEMATOLOGY AND O NCOLOGY [place], [place] [address] (Wo rk) 04/28/2022 Infusion Hematology and Oncology documented as of this encounter Visit Diagnoses Diagnosis 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 Malignant neoplasm of lower lobe, bronch us, or lung Secondary malignant neoplasm of liver documented in this encounter Care Teams Cardiovascular Or Nurse Relationship Specialty Start Date End Date Arianna Nunez MD PCP - General Family Medicine 10/28/21 Yi [address] [place] [address] documented as of this encounter
--- OUTSIDE RECORDS SUMMARY | 2022-04-22 14:07 | XMS_ITS | Encounter Summary ---
:1945 Author Organization [facility] [place] [address] Care Team Providers Name Role Phone Arianna Nunez MD Primary Care Provider Reason for Visit Reason Comments Chemotherapy Cycle 8, Day 1 Pembro Treatment/Therapy Plan Authorization (Routine) - Pending Review Specialty Diagnoses / Procedures Referred By Contact Refer red To Contact Diagnoses 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 Secondary malignant neoplasm of liver Medication management Yovanny Carlson MD [facility] Hem Onc Office Procedures [address] HEMATOLOGY/[place] [phone] Fax: Referral ID Status Reason Start Date Expiration Date Visits V isits Requested Authorized [id number] Pending 09/28/2021 09/27/2022 99 99 Review Encounter Details Date Type Department Care Team Description 04/07/2022 Infusion Hematology Oncology at [facility] malignant neoplasm of liver; [facility] Medication management; [address] [place] [address] Primary malignant neoplasm o f left lower lobe of lung [place], [place] [phone] Social History Tobacco Use Types Packs/Day Years Used Date Current Every Day Smoker Cigarettes 0.25 63 Smokeless Tobacco: Never Used Comments: 1 cigarette daily Sex Assigned at Date Recorded Not on file documented as of this encounter Progress Notes Johanna Vidal RN - 04/07/2022 2:00 PM EDT INFUSION THERAPY ADMINISTRATION NOTES DIAGNOSIS: NSCLC CYCLE #: Cycle 8, Day 1 - Pembrolizumab REASON FOR VISIT: To receive chemotherapy. SUBJECTIVE: Carly offers no complaints. She is somnolent and falls asleep easily. OBJECTIVE: O2, 2L NC continuously. Seen by provider. Ready to treat. LAB DATA: WBC - 8.18, H/H - 11.2/36.0, Plt Ct - 211, ANC - 6.25, Lytes wnl, BUN/Cr - 29/1.0, MG - 1.8, TSH/Free T4 - 1.75/1.07 IV ACCESS: Port accessed off site. Flushes readily with brisk blood return. Pre administration: Chemotherapy orders independently verified for drug name, route, and dosage per patient's height, weight and BSA by Johanna Garnett, DOMENIC and Staff Pharmacist(s). REACTIONS (DESCRIPTION, TIME, INTERVENTION AND EFFECTIVENESS) none ASSESSMENT: Carly was awake, alert and tolerated treatment well. Met with Palliative Care provider during infusion. Port flushed with 20 cc's of NS and 500 units of heparin and de-accessed. PLAN: Return to clinic in three weeks. documented in this encounter Plan of Treatment Upcoming Encounters Date Type Specialty Care Team Description 04/28/2022 Office Visit Hematology and Oncology ForOrin love, CAUSTIC ROOM OPERATOR [facility] HEMAT[facility] AND O [place], [place] [address] (Wo rk) 04/28/2022 Infusion Hematology [...] Rate Site heparin (pf) (porcine) (100 Given 04/07/2022 3:30 PM EDT 500 Uni ts units/mL) flush 5 mL syringe 500 Units 500 Units, Intravenous, ONCE PRN, Starting on Thu04/07/22 at 1421, Until Thu04/07/22 at 1733, Line Care, Refer to Intravenous (IV) Procedure: Accessing Implanted Vascular Access Devices (654) procedure and/or Intravenous (IV) Job Aid: Adult Flushing & Catheter Care (9810) job aid for additional information regarding guidelines and administration., Routine pembrolizumab (Keytruda) 200 mg in New Bag 04/07/2022 2:53 PM EDT 200 mg 216 mL/hr sodium chloride 0.9% 108 mL infusion 200 mg, Intravenous, ONCE, 1 dose, On Thu04/07/22 at 1545, Administer over 30 Minutes, Flush line with NS after each dose., This agent is restricted to outpatient use. Is this drug being given as an outpatient? Yes sodium chloride 0.9 % (flush) (BD PosiFlush Given 04/07/2022 3:30 PM EDT 20 mLs Normal Saline 0.9) flush 5-20 mL 5-20 mL, Intravenous, EVERY 1 MIN PRN, Starting on Thu04/07/22 at 1421, Until Thu04/07/22 at 1733, Line Care, Flush pertains to all indwelling lines. Flush per protocol found in the job aid using the link provided on this medication record. Refer to Intravenous (IV) Job Aid: Adult Flushing & Catheter Care (4157) job aid for additional information regarding guidelines and administration., Routine documented in this encounter Care Teams Air Chief Marshal Relationship Specialty Start Date End Date Arianna Nunez MD PCP - General Family Medicine 10/28/21 Yi [address] [place] [address] documented as of this encounter
--- OUTSIDE RECORDS SUMMARY | 2022-04-22 14:07 | XMS_ITS | CCD ---
:1945 Author Care Team Providers Name Role Phone CLEOPATRA GARCIA Attending Physician Unavailable Vital Signs Unknown or Not Available. Allergies Allergy Code Allergy Type Reaction Status PENICILLINS (CLASS) 0 Drug allergy pt doesn't know Activ e TETRACYCLINE 89336 Drug allergy Active Procedures Unknown or Not Available. History of Immunizations Unknown or Not Available. Problems Problem Code Start Date Resolved Date Status CHRONIC AIRWAY OBSTRUCTION 07398799 A ctive HX OF BRONCHOGENIC MALIGNANCY 569373955 Active MULTIPLE SCLEROSIS 86486284 Active Hyperemesis 428071265 Active HTN 30948736 Active Acute respiratory failure with hypoxia 85755754 Active COPD with exacerbation 856120701 Activ e Cancer of lung 80489632 Active Acute CHF 31519619 Active Hypertension 23348238 Active Near syncope 062219509 Active Dehydration 70180627 Active High troponin I level 166296566 Active Acute exacerbation of COPD 810539618 08/07/2021 A ctive Results Unknown or Not Available. Active Medications Medication Code Dose Units Frequency Route Modification Start Date/Time predniSONE 10MG 111629 1 TABLET DAILY ORAL 08/07/20 21 Oral Tablet 15:21 Prescription Detail TAKE 5 TABS ORAL FOR 2 DAYS, THEN 4 TABS FOR 2 DAYS, THEN 3 TABS FOR 2 DAYS, THEN 2 TABS FOR 2 DAYS, THEN 1 TAB FOR 2 DAYS Ipratropium 6525783 1 NEEDED INHALATION 021 15:20 Aiken-Albuterol Sulfate FOUR TIMES A 0.5MG/3ML-3MG/3ML DAY Inhalation Solution Prescription Detail 1 INHALATION NEEDED FOUR TIMES A DAY FOR Difficulty Breathing Acetaminophen 325MG 162328 650 MILLIGRAMS NEEDED ORAL 06/28/2020 09:36 Oral Tablet EVERY 4 HOURS Prescription Detail TAKE 650 MILLIGRAMS ORAL NEEDED EVERY 4 HOURS Amitriptyline HCl 50MG 020696 50 MILLIGRAMS BEDTIME ORAL 06/28/2020 09:36 Oral Tablet Prescription Detail TAKE 50 MILLIGRAMS ORAL BEDT МАРИЯ Atorvastatin Calcium 261616 20 MILLIGRAMS EVERY EVENING ORAL 06/28/2020 09:36 20MG Oral Tablet Prescription Detail TAKE 20 MILLIGRAMS ORAL EVER Y EVENING Budesonide 0.5MG/2ML 453845 1 EACH DAILY INHALATION 06/28/2020 09:36 Inhalation Suspension Prescription Detail 1 EACH INHALATION DAILY Cetirizine 10MG Oral 2969720 10 MILLIGRAMS BEDTIME ORAL 06/28/2020 09:36 Tablet Prescription Detail TAKE 10 MILLIGRAMS ORAL BEDT МАРИЯ Famotidine 20MG 388910 20 MILLIGRAMS NEEDED TWICE ORAL 06/28/2020 09:36 Oral Tablet DAILY Prescription Detail TAKE 20 MILLIGRAMS ORAL N EEDED TWICE DAILY Ipratropium 1661654 1 EACH NEEDED INHALATION 020 09:36 Aiken-Albuterol Sulfate 0.5MG/3ML-3MG/3ML Inhalation Solution Prescription Detail 1 EACH INHALATION NEEDED Lidocaine-Prilocaine 457303 1 EACH NEEDED TOPICAL 1 2.5%-2.5% Topical APPLICATION 09 :36 application Cream Prescription Detail 1 EACH TOPICAL APPLICATION NEEDED Losartan Potassium 100MG 019826 100 MILLIGRAMS DAILY ORAL 06/28/2020 09:36 Oral Tablet Prescription Detail TAKE 100 MILLIGRAMS ORAL PARRIS LY Magnesium 500 MG Oral 531046 2 TABLET THREE TIMES A DAY ORAL 06/28/2020 09:36 Tablet Prescription Detail TAKE 2 TABLET ORAL THREE CELSO ES A DAY Morphine Sulfate 60MG 001578 60 MILLIGRAMS TWICE A DAY ORAL 06/28/2020 09:36 Oral Capsule, Extended Release Prescription Detail TAKE 60 MILLIGRAMS ORAL TWIC E A DAY Narcan 4MG/0.1ML Nasal [place] 6000623 1 EACH NEEDED NASAL 06/28/2020 09:36 Prescription Detail SPRAY 1 EACH NASAL NEEDED Omeprazole 40MG Oral 20021106 40 MILLIGRAMS DAILY ORAL 06/28/2020 09:36 Capsule, Delayed Release Prescription Detail TAKE 40 MILLIGRAMS ORAL BETTY Y Ondansetron 4MG Oral Tablet 781477 1 TABLET DAILY ORAL 06/28/2020 09:36 Prescription Detail TAKE 1 TABLET ORAL DAILY Polyethylene Glycol 88354427829 1 EACH NEEDED DAILY ORAL 06/28/2020 09:36 17GM/1Dose Oral Powder for Solution Prescription Detail TAKE 1 EACH ORAL NEEDED D AILY PreserVision Areds 2 NA 69287587835 2 CAPSULE DAILY ORAL 06/28/2020 09:36 Oral Capsule, Liquid Filled Prescription Detail TAKE 2 CAPSULE ORAL DAILY ProAir HFA 634858 2 PUFF NEEDED INHALATION 06/28/20 09:36 0.09MG/1Actuation THREE TIMES A Inhalation Suspension DAY Prescription Detail 2 PUFF INHALATION NEEDED THREE TIMES A DAY Pulmicort Flexhaler 321061 2 PUFF TWICE A DAY INHALATION 06/28/2020 09:36 90MCG/1Act Inhalation Powder Prescription Detail 2 PUFF INHALATION TWICE A D AY Spironolactone 25MG Oral 253156 25 MILLIGRAMS DAILY ORAL 06/28/2020 09:36 Tablet Prescription Detail TAKE 25 MILLIGRAMS ORAL BETTY Y Torsemide 20MG Oral Tablet 907564 1 TABLET DAILY ORAL 06/28/2020 09:36 Prescription Detail TAKE 1 TABLET ORAL DAILY Vitamin D3 945846 2325 INTERNATIONAL UNITS DAILY ORAL 1 09:36 1000IU Oral Tablet Prescription Detail TAKE 1000 INTERNATIONAL UNIT S ORAL DAILY Ondansetron 4MG Oral 385737 4 MILLIGRAMS BEFORE MEALS ORAL 06/28/2020 09:35 Tablet, Disintegrating Prescription Detail TAKE 4 MILLIGRAMS ORAL BEFOR E MEALS predniSONE 5MG Oral 250476 5 MILLIGRAMS DAILY WITH FOOD ORAL 06/28/2020 09:35 Tablet Prescription Detail TAKE 5 MILLIGRAMS ORAL DAILY WITH FOOD Refresh Ophthalmic 238305 1 EACH NEEDED OPTHALMIC 0 10/20/2019 12:16 Solution Prescription Detail 1 EACH OPTHALMIC NEEDED Avastin 25MG/1ML Intravenous 1072931 [id number] IVPB 10/20/2019 12:15 Solution Prescription Detail IVPB [id number] Mapap 325MG Oral 948176 650 MILLIGRAMS NEEDED EVERY ORAL 10/20/2019 12:14 Tablet 4 HOURS Prescription Detail TAKE 650 MILLIGRAMS ORAL NEEDED EVERY 4 HOURS amLODIPine Besylate 10MG 464074 10 MILLIGRAMS DAILY ORAL 08/06/2019 11:13 Oral Tablet Prescription Detail TAKE 10 MILLIGRAMS ORAL BETTY Y Aspirin 81MG Oral Tablet, 634991 81 MILLIGRAMS DAILY ORAL 08/16/2018 10:22 Enteric Coated Prescription Detail TAKE 81 MILLIGRAMS ORAL BETTY Y Cymbalta 60MG Oral Capsule, 223383 60 MILLIGRAMS DAILY ORAL 08/16/2018 10:22 Delayed Release Prescription Detail TAKE 60 MILLIGRAMS ORAL BETTY Y Medications Administered During Visit Unknown or Not Available. Encounters Encounter Diagnosis Diagnosis Code Start Date Primary malignant neoplasm of lung 67912615 08/08 Social History Smoking Status Code Start Date End Date Current every day smoker 369536013 Patient Decision Aids Unknown or Not Available. Discharge Instructions You were admitted to on 08/08/2021 12:46 with a principal diagnosis of Malignant neoplasm of unspecified par t of unspecified bronchus or lung You were discharged from on 08/08/2021 12:46 Should you have any questions prior to d ischarge, please contact a member of your healthcare team. If you have left the ho spital and have any questions, please contact your primary care physician. Chief Complaint and Reason For Visit Chief Complaint Date of Onset NON SMALL CELL LUNG CA Function Status Unknown or Not Available. Plan of Care Unknown or Not Available. Referral/Transition of Care Unknown or Not Available.
--- OUTSIDE RECORDS SUMMARY | 2022-04-22 14:07 | XMS_ITS | Encounter Summary ---
:1945 Author Organization [facility] [place] [address] Care Team Providers Name Role Phone Arianna Nunez MD Primary Care Provider Encounter Details Date Type Department Care Team Description 03/28/2022 Ancillary Procedure Radiology Library at Arianna Nunez MD [address] [phone] (Wo rk) Social History Tobacco Use Types Packs/Day Years Used Date Current Every Day Smoker Cigarettes 0.25 63 Smokeless Tobacco: Never Used Comments: 1 cigarette daily Sex Assigned at Date Recorded Not on file documented as of this encounter Plan of Treatment Upcoming Encounters Date Type Specialty Care Team Description 04/28/2022 Office Visit Hematology and Oncology Jose Summerssandra Marin APRN [facility] HEMATOLOGY AND O NCOLOGY [place], [place] [address] (Wo rk) 04/28/2022 Infusion Hematology and Oncology documented as of this encounter Procedures Procedure Name Priority Date/Time Associated Diagnosis Comme nts FILM LIBRARY Routine 03/28/2022 12:00 AM Results for this STORAGE ONLY CT EDT procedure ar e in CHEST the results section. documented in this encounter Results Film Library- Storage Only CT Chest (03/28/2022 12:00 AM EDT) Specimen (Source) Anatomical Location Collection Method / Collectio n Time Received Time / Laterality Volume Narrative [facility] - 04/02/2022 2:24 PM EDT This exam is auto-finalizing. It's purpo se is for storage only. Arianna Nunez MD IMG FILM LIBRARY ORDERABLES Performing Organization Address City/State/ZIP Code Phon e Number [facility] [place], [place] documented in this encounter Visit Diagnoses Not on filedocumented in this encounter Care Teams Forest And Conservation Worker Relationship Specialty Start Date End Date Arianna Nunez MD PCP - General Family Medicine 10/28/21 Yi [address] [place] [address] documented as of this encounter
--- OUTSIDE RECORDS SUMMARY | 2022-04-22 14:07 | XMS_ITS | CCD ---
:1945 Author Care Team Providers Name Role Phone CLEOPATRA GARCIA Attending Physician Unavailable Vital Signs Unknown or Not Available. Allergies Allergy Code Allergy Type Reaction Status PENICILLINS (CLASS) 0 Drug allergy pt doesn't know Activ e TETRACYCLINE 30881 Drug allergy Active Procedures Unknown or Not Available. History of Immunizations Unknown or Not Available. Problems Problem Code Start Date Resolved Date Status CHRONIC AIRWAY OBSTRUCTION 66813691 A ctive HX OF BRONCHOGENIC MALIGNANCY 639963148 Active MULTIPLE SCLEROSIS 39986690 Active Hyperemesis 997107715 Active HTN 63906875 Active Acute respiratory failure with hypoxia 90357449 Active COPD with exacerbation 231517789 Activ e Cancer of lung 84159304 Active Acute CHF 46681050 Active Hypertension 25529475 Active Near syncope 260093282 Active Dehydration 40511543 Active High troponin I level 387041988 Active Acute exacerbation of COPD 438328745 08/07/2021 A ctive Results COMPREHENSIVE METABOLIC PANEL (CMP) - Co llect Date/Time: 08/08/2021 11:00 Test Name Code Test Result Test Units Test Ref Range GLUCOSE 2345-7 116 mg/dL L=70 H=116 BUN 3094-0 30 mg/dL L=6 H=25 CREATININE 2160-0 0.85 mg/dL L=0.51 H=0.95 SODIUM SERUM 2951-2 136 mmol/L L=136 H=145 POTASSIUM SERUM 2823-3 4.0 mmol/L L=3.4 H=5.2 CHLORIDE SERUM 2075-0 95 mmol/L L=96 H=110 CARBON DIOXIDE (CO2) 2028-9 40 mmol/L L=22 H= 34 ANION GAP 80345-8 0.7 mmol/L CALCIUM SERUM 80327-2 10.4 mg/dL L=8.2 H=10.2 BILIRUBIN TOTAL 1975-2 0.4 mg/dL L=0.0 H=1.3 ALK. PHOS. 6768-6 116 U/L L=46 H=116 SGOT (AST) 1920-8 11 U/L L=15 H=37 SGPT (ALT) 1742-6 18 U/L L=12 H=78 TOTAL PROTEIN 2885-2 6.7 gm/dL L=6.0 H=8.0 ALBUMIN 1751-7 3.7 gm/dL L=3.4 H=5.0 AGE 75 years eGFR (non-Afr.Amer.) 68744-4 65 mL/min eGFR (Afr-Maltese) 29708-7 79 mL/min CBC W/ DIFFERENTIAL* - Collect Date/Time : 08/08/2021 11:00 Test Name Code Test Result Test Units Test Ref Range WBC 6690-2 8.24 th/cmm L=5.00 H=10.00 NEUT % 80.4 % L=40.0 H=80.0 LYMPH % 9.0 % L=10.0 H=50.0 MONO % 96132-0 9.7 % L=2.0 H=12.0 EOS % 0.2 % L=0.0 H=8.0 BASO % 0.5 % L=0.0 H=3.0 IG % 2514-8 0.2 % L=0.0 H=1.1 NRBC % 82047-7 0.0 % L=0.0 H=0.0 NEUT abs count 751-8 6.6 th/cmm L=1.6 H=8.4 LYMPH abs count 731-0 0.7 th/cmm L=1.5 H=4.0 MONO abs count 742-7 0.8 th/cmm L=0.2 H=1.0 EOS abs count 711-2 0.0 th/cmm L=0.0 H=0.5 BASO abs count 704-7 0.0 th/cmm L=0.0 H=0.2 IG abs count 86591-2 0.0 th/cmm L=0.0 H=0.1 NRBC abs count 18992-1 0.0 mil/cmm L=0.0 H=0.0 RBC 789-8 3.71 mil/cmm L=3.90 H=5.40 HEMOGLOBIN 718-7 10.5 gm/dL L=12.0 H=16.0 HEMATOCRIT 4544-3 34 % L=37 H=47 MCV 787-2 92 fL L=82 H=92 MCH 785-6 28.3 pg L=27.0 H=31.0 MCHC 786-4 30.9 % L=32.0 H=36.0 RDW-SD 788-0 50.1 fL L=39.0 H=49.0 PLATELET COUNT 777-3 257 th/cmm L=150 H=450 Active Medications Medication Code Dose Units Frequency Route Modification Start Date/Time predniSONE 10MG 669261 1 TABLET DAILY ORAL 08/07/20 21 Oral Tablet 15:21 Prescription Detail TAKE 5 TABS ORAL FOR 2 DAYS, THEN 4 TABS FOR 2 DAYS, THEN 3 TABS FOR 2 DAYS, THEN 2 TABS FOR 2 DAYS, THEN 1 TAB FOR 2 DAYS Ipratropium 6316674 1 NEEDED INHALATION 021 15:20 [place]-Albuterol Sulfate FOUR TIMES A 0.5MG/3ML-3MG/3ML DAY Inhalation Solution Prescription Detail 1 INHALATION NEEDED FOUR TIMES A DAY FOR Difficulty Breathing Acetaminophen 325MG 198122 650 MILLIGRAMS NEEDED ORAL 06/28/2020 09:36 Oral Tablet EVERY 4 HOURS Prescription Detail TAKE 650 MILLIGRAMS ORAL NEEDED EVERY 4 HOURS Amitriptyline HCl 50MG 603906 50 MILLIGRAMS BEDTIME ORAL 06/28/2020 09:36 Oral Tablet Prescription Detail TAKE 50 MILLIGRAMS ORAL BEDT МАРИЯ Atorvastatin Calcium 606596 20 MILLIGRAMS EVERY EVENING ORAL 06/28/2020 09:36 20MG Oral Tablet Prescription Detail TAKE 20 MILLIGRAMS ORAL EVER Y EVENING Budesonide 0.5MG/2ML 393808 1 EACH DAILY INHALATION 06/28/2020 09:36 Inhalation Suspension Prescription Detail 1 EACH INHALATION DAILY Cetirizine 10MG Oral 8187075 10 MILLIGRAMS BEDTIME ORAL 06/28/2020 09:36 Tablet Prescription Detail TAKE 10 MILLIGRAMS ORAL BEDT МАРИЯ Famotidine 20MG 944325 20 MILLIGRAMS NEEDED TWICE ORAL 06/28/2020 09:36 Oral Tablet DAILY Prescription Detail TAKE 20 MILLIGRAMS ORAL N EEDED TWICE DAILY Ipratropium 2273387 1 EACH NEEDED INHALATION 020 09:36 [place]-Albuterol Sulfate 0.5MG/3ML-3MG/3ML Inhalation Solution Prescription Detail 1 EACH INHALATION NEEDED Lidocaine-Prilocaine 182182 1 EACH NEEDED TOPICAL 1 2.5%-2.5% Topical APPLICATION 09 :36 application Cream Prescription Detail 1 EACH TOPICAL APPLICATION NEEDED Losartan Potassium 100MG 316543 100 MILLIGRAMS DAILY ORAL 06/28/2020 09:36 Oral Tablet Prescription Detail TAKE 100 MILLIGRAMS ORAL PARRIS LY Magnesium 500 MG Oral 911066 2 TABLET THREE TIMES A DAY ORAL 06/28/2020 09:36 Tablet Prescription Detail TAKE 2 TABLET ORAL THREE CELSO ES A DAY Morphine Sulfate 60MG 070896 60 MILLIGRAMS TWICE A DAY ORAL 06/28/2020 09:36 Oral Capsule, Extended Release Prescription Detail TAKE 60 MILLIGRAMS ORAL TWIC E A DAY Narcan 4MG/0.1ML Nasal Spencer 8639301 1 EACH NEEDED NASAL 06/28/2020 09:36 Prescription Detail SPRAY 1 EACH NASAL NEEDED Omeprazole 40MG Oral 20021106 40 MILLIGRAMS DAILY ORAL 06/28/2020 09:36 Capsule, Delayed Release Prescription Detail TAKE 40 MILLIGRAMS ORAL BETTY Y Ondansetron 4MG Oral Tablet 039842 1 TABLET DAILY ORAL 06/28/2020 09:36 Prescription Detail TAKE 1 TABLET ORAL DAILY Polyethylene Glycol 33204640541 1 EACH NEEDED DAILY ORAL 06/28/2020 09:36 17GM/1Dose Oral Powder for Solution Prescription Detail TAKE 1 EACH ORAL NEEDED D AILY PreserVision Areds 2 NA 29000929899 2 CAPSULE DAILY ORAL 06/28/2020 09:36 Oral Capsule, Liquid Filled Prescription Detail TAKE 2 CAPSULE ORAL DAILY ProAir HFA 831921 2 PUFF NEEDED INHALATION 06/28/20 20 09:36 0.09MG/1Actuation THREE TIMES A Inhalation Suspension DAY Prescription Detail 2 PUFF INHALATION NEEDED THREE TIMES A DAY Pulmicort Flexhaler 364131 2 PUFF TWICE A DAY INHALATION 06/28/2020 09:36 90MCG/1Act Inhalation Powder Prescription Detail 2 PUFF INHALATION TWICE A D AY Spironolactone 25MG Oral 452569 25 MILLIGRAMS DAILY ORAL 06/28/2020 09:36 Tablet Prescription Detail TAKE 25 MILLIGRAMS ORAL BETTY Y Torsemide 20MG Oral Tablet 391471 1 TABLET DAILY ORAL 06/28/2020 09:36 Prescription Detail TAKE 1 TABLET ORAL DAILY Vitamin D3 093280 1943 INTERNATIONAL UNITS DAILY ORAL 1 09:36 1000IU Oral Tablet Prescription Detail TAKE 1000 INTERNATIONAL UNIT S ORAL DAILY Ondansetron 4MG Oral 266947 4 MILLIGRAMS BEFORE MEALS ORAL 06/28/2020 09:35 Tablet, Disintegrating Prescription Detail TAKE 4 MILLIGRAMS ORAL BEFOR E MEALS predniSONE 5MG Oral 906440 5 MILLIGRAMS DAILY WITH FOOD ORAL 06/28/2020 09:35 Tablet Prescription Detail TAKE 5 MILLIGRAMS ORAL DAILY WITH FOOD Refresh Ophthalmic 372124 1 EACH NEEDED OPTHALMIC 0 10/20/2019 12:16 Solution Prescription Detail 1 EACH OPTHALMIC NEEDED Avastin 25MG/1ML Intravenous 1800801 D7KCCVV IVPB 10/20/2019 12:15 Solution Prescription Detail IVPB M9UILVB Mapap 325MG Oral 152410 650 MILLIGRAMS NEEDED EVERY ORAL 10/20/2019 12:14 Tablet 4 HOURS Prescription Detail TAKE 650 MILLIGRAMS ORAL NEEDED EVERY 4 HOURS amLODIPine Besylate 10MG 058152 10 MILLIGRAMS DAILY ORAL 08/06/2019 11:13 Oral Tablet Prescription Detail TAKE 10 MILLIGRAMS ORAL BETTY Y Aspirin 81MG Oral Tablet, 596366 81 MILLIGRAMS DAILY ORAL 08/16/2018 10:22 Enteric Coated Prescription Detail TAKE 81 MILLIGRAMS ORAL BETTY Y Cymbalta 60MG Oral Capsule, 866155 60 MILLIGRAMS DAILY ORAL 08/16/2018 10:22 Delayed Release Prescription Detail TAKE 60 MILLIGRAMS ORAL BETTY Y Medications Administered During Visit Unknown or Not Available. Encounters Encounter Diagnosis Diagnosis Code Start Date Malignant neoplasm of unspecified part of left bronchus C349 2 08/08/2021 or lung Social History Smoking Status Code Start Date End Date Current every day smoker 058816127 Patient Decision Aids Unknown or Not Available. Discharge Instructions You were admitted to [facility] on 08/08/2021 10:48 with a principal diagnosis of Malignant neoplasm of unspecified par t of left bronchus or lung You had the following tests done: CBC W / DIFFERENTIAL* COMPREHENSIVE METABOLIC PANEL (CMP) You were discharged from [facility] on 08/08/2021 10:48 Should you have any questions prior to [...]
--- OUTSIDE RECORDS SUMMARY | 2022-04-22 14:07 | XMS_ITS | CCD ---
:1945 Author Care Team Providers Name Role Phone MICHAEL HILL Attending Physician Unavailable MICHAEL HILL Er Physician 1 Unavailable RAMIN Maxwell Registered Nurse Unavailable Vital Signs Vital Sign Value Unit Date/Time Recent/Initial? BMI (Body Mass Index) 26.46 kg/m^2 08/07/2021 13:24 In itial VS Weight Measured 159 lbs 08/07/2021 13:24 Initial VS Height 65 in 08/07/2021 13:24 Initial VS BSA (Body Surface Area) 1.82 m^2 08/07/2021 13:24 Initial VS BP Systolic 149 mmHg 08/07/2021 13:24 Initial VS BP Diastolic 77 mmHg 08/07/2021 13:24 Initial VS Respiratory Rate 27 bpm 08/07/2021 13:24 Initial VS Heart Rate 77 bpm 08/07/2021 13:24 Initial VS O2 % BldC Oximetry 98 % 08/07/2021 13:24 Initi al VS Body Temperature 37.1 degrees 08/07/2021 13:24 Initial VS BMI (Body Mass Index) 26.46 kg/m^2 08/07/2021 13:[address] Recent VS Weight Measured 159 lbs 08/07/2021 13:34 Most Rec ent VS Height 65 in 08/07/2021 13:34 Most Recent VS BSA (Body Surface Area) 1.82 m^2 08/07/2021 13:34 Most Recent VS BP Systolic 147 mmHg 08/07/2021 13:34 Most Recent VS BP Diastolic 59 mmHg 08/07/2021 13:34 Most Recent VS Body Temperature 37.1 degrees 08/07/2021 13:34 Most Re cent VS Respiratory Rate 19 bpm 08/07/2021 14:48 Most Re cent VS Heart Rate 74 bpm 08/07/2021 14:48 Most Recent VS O2 % BldC Oximetry 98 % 08/07/2021 14:48 Most Recent VS Allergies Allergy Code Allergy Type Reaction Status PENICILLINS (CLASS) 0 Drug allergy pt doesn't know Activ e TETRACYCLINE 01765 Drug allergy Active Procedures Unknown or Not Available. History of Immunizations Unknown or Not Available. Problems Problem Code Start Date Resolved Date Status CHRONIC AIRWAY OBSTRUCTION 05646260 A ctive HX OF BRONCHOGENIC MALIGNANCY 065989022 Active MULTIPLE SCLEROSIS 45400328 Active Hyperemesis 647134885 Active HTN 66726791 Active Acute respiratory failure with hypoxia 41193435 Active COPD with exacerbation 796133889 Activ e Cancer of lung 21676858 Active Acute CHF 24220042 Active Hypertension 57035675 Active Near syncope 217122466 Active Dehydration 44473141 Active High troponin I level 891189753 Active Acute exacerbation of COPD 908073612 08/07/2021 A ctive Results BNP (PRO-B NATRIURETIC PEPTIDE) - [facility] t Date/Time: 08/07/2021 14:32 Test Name Code Test Result Test Units Test Ref Range NT-proBNP 04358-1 2023.0 pg/mL L=0.0 H=125 COMPREHENSIVE METABOLIC PANEL (CMP) - Co llect Date/Time: 08/07/2021 14:32 Test Name Code Test Result Test Units Test Ref Range GLUCOSE 2345-7 102 mg/dL L=70 H=116 BUN 3094-0 28 mg/dL L=6 H=25 CREATININE 2160-0 0.76 mg/dL L=0.51 H=0.95 SODIUM SERUM 2951-2 134 mmol/L L=136 H=145 POTASSIUM SERUM 2823-3 4.5 mmol/L L=3.4 H=5.2 CHLORIDE SERUM 2075-0 94 mmol/L L=96 H=110 CARBON DIOXIDE (CO2) 2028-9 37 mmol/L L=22 H= 34 ANION GAP 12537-7 2.7 mmol/L CALCIUM SERUM 08461-0 10.0 mg/dL L=8.2 H=10.2 BILIRUBIN TOTAL 1975-2 0.4 mg/dL L=0.0 H=1.3 ALK. PHOS. 6768-6 121 U/L L=46 H=116 SGOT (AST) 1920-8 16 U/L L=15 H=37 SGPT (ALT) 1742-6 19 U/L L=12 H=78 TOTAL PROTEIN 2885-2 6.5 gm/dL L=6.0 H=8.0 ALBUMIN 1751-7 3.6 gm/dL L=3.4 H=5.0 AGE 75 years eGFR (non-Afr.Amer.) 52151-0 74 mL/min eGFR (Afr-Cypriot) 26646-7 90 mL/min CBC W/ DIFFERENTIAL* - Collect Date/Time : 08/07/2021 14:32 Test Name Code Test Result Test Units Test Ref Range WBC 6690-2 8.20 th/cmm L=5.00 H=10.00 NEUT % 82.7 % L=40.0 H=80.0 LYMPH % 7.1 % L=10.0 H=50.0 MONO % 73716-2 8.7 % L=2.0 H=12.0 EOS % 0.7 % L=0.0 H=8.0 BASO % 0.6 % L=0.0 H=3.0 IG % 2514-8 0.2 % L=0.0 H=1.1 NRBC % 16477-3 0.0 % L=0.0 H=0.0 NEUT abs count 751-8 6.8 th/cmm L=1.6 H=8.4 LYMPH abs count 731-0 0.6 th/cmm L=1.5 H=4.0 MONO abs count 742-7 0.7 th/cmm L=0.2 H=1.0 EOS abs count 711-2 0.1 th/cmm L=0.0 H=0.5 BASO abs count 704-7 0.1 th/cmm L=0.0 H=0.2 IG abs count 90140-1 0.0 th/cmm L=0.0 H=0.1 NRBC abs count 45985-9 0.0 mil/cmm L=0.0 H=0.0 RBC 789-8 3.56 mil/cmm L=3.90 H=5.40 HEMOGLOBIN 718-7 10.3 gm/dL L=12.0 H=16.0 HEMATOCRIT 4544-3 33 % L=37 H=47 MCV 787-2 93 fL L=82 H=92 MCH 785-6 28.9 pg L=27.0 H=31.0 MCHC 786-4 31.1 % L=32.0 H=36.0 RDW-SD 788-0 50.6 fL L=39.0 H=49.0 PLATELET COUNT 777-3 246 th/cmm L=150 H=450 DULCE COVID RHEONIX* - Collect Date/Neo e: 08/07/2021 14:31 Test Name Code Test Result Test Units Test Ref Range SOURCE= nasopharyngeal N/A Tier- INPATIENT/ED N/A SARS COV2 RNA: 50245-6 NEGATIVE N/A REFERENCE RAN GE: NEGAT Active Medications Medications Administered During Visit Medication Dose Units Frequency Route Date/Time of L ast Dose ALBUTEROL UPDRAFT 30CT UD: 2.5 MG X1 INH 08/07/2021 13:47 2.5MG/3ML ALBUTEROL UPDRAFT 30CT UD: 2.5 MG X1 INH 08/07/2021 13:46 2.5MG/3ML PredniSONE TABLET: 20MG 60 MG X1 PO 1 10/07/2020 13:46 Encounters Encounter Diagnosis Diagnosis Code Start Date Chronic obstructive pulmonary disease with (acute) J441 08/07/2021 exacerbation Social History Smoking Status Code Start Date End Date Current every day smoker 191186227 Patient Decision Aids Patient Decision Aid ACUTE EXACERBATION OF COPD Discharge Instructions You were admitted to [facility] on 08/07/2021 12:34 with a principal diagnosis of Chronic obstructive pulmonary disease with (acute) exacerbation You had the following tests done: BNP ( PRO-B NATRIURETIC PEPTIDE) CBC W/ DIFFERENTIAL* COMPREHENSIVE METABOLIC PA JUAREZ (CMP) [facility] You were discharged from [facility] on 08/07/2021 16:05 Should you have any questions prior to d ischarge, please contact a member of your healthcare team. If you have left the ho spital and have any questions, please contact your primary care physician. Chief Complaint and Reason For Visit Chief Complaint Date of Onset ISOLATION/SOB 08/07/2021 Function Status Unknown or Not Available. Plan of Care Unknown or Not Available. Referral/Transition of Care Unknown or Not Available.
--- OUTSIDE RECORDS SUMMARY | 2022-04-22 14:08 | XMS_ITS | Encounter Summary ---
:1945 Author Organization [facility] [place] [address] Care Team Providers Name Role Phone Arianna Nunez MD Primary Care Provider Encounter Details Date Type Department Care Team Description 01/13/2022 Office Visit Hematology/Oncology Yovanny Carlson, Liz imary malignant neoplasm of left lower lobe of lung; at [facility] Secondary malignant neoplasm of liver [address] [place] [phone] HEMATOLOGY/ONCOLOGY [phone] DEPT [place], [place] [address] (Wo rk) Social History Tobacco [...] were not included. Hematology & Medical Oncology [address] [address] Carly Arguelles is being seen [...] intent. She has transferred her care to [facility] as she has recently moved. She [...] MD, MS 01/13/2022 Medical Oncology & Hematology [facility] HPI/Interval History/Subjective: Last seen 12/16/2021 Seen in [...] which was very difficult.. Moved to [facility] 2021. Lives in [facility] apartments (prior living arrangement that she had with her stepson was deemed unsafe) Lives alone. Working well. Utilizes meals on wheels and RTC services. Uses Medicaid. 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 Also worked in [place]. Tobacco use: Still smokes 1 cig per day. 50+ pk year hx. Alcohol use: Does not drink. Financial Distress: Limited. Arvind Quigley is her case manager specialist through [employer] Likes to read and do jigsaw puzzles. Likes mysteries Family History: Mother- Dscd 50 due diabetic complications Father- Dscd due to CHF. Doesn't know a lot of details Oncology Overview: # Malignant neoplasm of female breast (HCC-CMS) 1997: Stage 1 Left ductal breast cancer - T1a,N0,M0,G1 - ER+/[place]-. 0/12 node involvement. - Completed 5 years [...] A DAY NEEDED FOR DIFFICULTY BREATHING Yes [facility] Spacer USE DIRECTED Yes DULoxetine DR (Cymbalta) [...] Imaging Data: 01.06.22 CTA performed in the [facility] ED compared to 10/29/2021 No evidence of pulmonary embolism stable appearance of right pleural collection and areas of nodularity and scarring 10.29.21 Review of Pathology Data: documented in this encounter Plan of Treatment Upcoming Encounters Date Type Specialty Care Team Description 04/28/2022 Office Visit Hematology and Oncology MelinaOrin APRN [facility] HEMATOLOGY AND O NCOLOGY [place], [place] [address] (Wo rk) 04/28/2022 Infusion Hematology and Oncology documented as of this encounter Visit Diagnoses Diagnosis 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 Malignant neoplasm of lower lobe, bronch us, or lung Secondary malignant neoplasm of liver documented in this encounter Care Teams C S S Representative Relationship Specialty Start Date End Date Arianna Nunez MD PCP - General Family Medicine 10/28/21 [address] [place] [address] documented as of this encounter
--- OUTSIDE RECORDS SUMMARY | 2022-04-22 14:08 | XMS_ITS | Encounter Summary ---
:1945 Author Organization [facility] [place] [address] Care Team Providers Name Role Phone Soila Faustin MD Primary Care Provider Encounter Details Date Type Department Care Team Description 09/25/2021 Hospital [place] [phone] Social History Tobacco Use Types Packs/Day Years Used Date Never Assessed Sex Assigned at Date Recorded Not on file documented as of this encounter Medications at Time of Discharge Medication Sig Dispensed Refills Start Date End Date Pulmicort Flexhaler 90 INHALE 2 PUFFS BY 0 2020 mcg/actuation Aerosol MOUTH TWO TIMES A DAY Powdr Breath Activated predniSONE (Deltasone) TAKE 1 TABLET BY 0 021 2.5 mg Tablet MOUTH DAILY torsemide (Demadex) 20 Take 30 mg by mouth. 0 06/2020 mg Tablet nicotine (Nicoderm CQ) APPLY 1 PATCH TO SKIN 0 21 mg/24 hr Patch 24 hr ONCE A DAY polyethylene glycoL MIX 1 CAPFUL WITH 8 0 021 (Miralax) 17 gram/dose OUNCES OF LIQUID AND Powder TAKE BY MOUTH ONCE DAILY OR NEEDED omeprazole (PriLOSEC) 40 TAKE 1 CAPSULE BY 0 07/29 mg Capsule, Delayed MOUTH TWICE DAILY FOR Release(E.C.) 2 TO 4 WEEKS mupirocin (Bactroban) 2 APPLY TO AFFECTED 0 10/22 % Ointment AREA TWICE DAILY FOR ONE WEEK OR UNTIL RESOLVED atorvastatin (Lipitor) TAKE 1 TABLET BY 0 021 20 mg Tablet MOUTH EVERY NIGHT AT BEDTIME cetirizine (ZyrTEC) 10 TAKE 1 TABLET BY 0 021 mg Tablet MOUTH AT BEDTIME ondansetron ODT TAKE 1 TABLET BY 0 04/26/2021 (Zofran-ODT) 8 mg MOUTH SUBLINGUALLY Tablet, Rapid Dissolve EVERY 8 HOURS FOR NAUSEA AND VOMITTING amitriptyline (Elavil) TAKE 1 TABLET BY 0 021 100 mg Tablet MOUTH AT BEDTIME albuteroL (ACCUNEB) 1.25 INHALE BY MOUTH 2.5 0 mg/3 mL Solution for MG THREE TIMES A DAY Nebulization spironolactone TAKE 1 TABLET BY 0 08/16/2021 (Aldactone) 25 mg Tablet MOUTH DAILY Spiriva with HandiHaler INHALE THE CONTENTS 0 08/2021 18 mcg Capsule, OF 1 CAPSULE VIA w/Inhalation Device INHALATION DEVICE EVERY DAY DIRECTED lidocaine-prilocaine APPLY TO THE AREA 0 07/18/20 (EMLA) Cream PRIOR TO PORT ACCESS ipratropium-albuteroL 1 INHALATION FOUR 0 021 (Duoneb) 0.5 mg-3 mg(2.5 TIMES A DAY NEEDED mg base)/3 mL Solution FOR DIFFICULTY for Nebulization BREATHING [facility] USE DIRECTED [address] (Cymbalta) TAKE 1 CAPSULE BY 0 07/29 60 mg Capsule, Delayed MOUTH ONCE DAILY Release(E.C.) amLODIPine (Norvasc) 10 Take 5 mg by mouth 0 /09/2019 mg Tablet Daily. losartan (COZAAR) 100 mg 50 mg. 0 08/02/2021 12/16/2021 Tablet documented as of this encounter Plan of Treatment Upcoming Encounters Date Type Specialty Care Team Description 04/28/2022 Office Visit Hematology and Oncology ForOrin love APRN [facility] AND O NCOLOGY [place], [place] [address] (Wo rk) 04/28/2022 Infusion Hematology and Oncology documented as of this encounter Procedures Procedure Name Priority Date/Time Associated Diagnosis Comme nts SURGICAL PATHOLOGY Routine 09/25/2021 3:28 PM Res ults for this REPORT EST procedure are i n the results section. documented in this encounter Results Surgical Pathology Report (09/25/2021 3:28 PM EST) Component Value Ref Test Analysis Performed At [facility] Range Method Time Signature Surgical [id number] ? Location: [facility] Pathology NEVIS Report The signing pathologist has (i) examined the relevant preparation(s) for the [facility] specimen(s) and (ii) rendered or confirmed the diagnosis(es) . HOSPITAL LABORATORY . ?Surgic al Pathology DIAGNOSIS CONSULTATION CASE Outside slide(s) labeled [id number], collection date 8. Lung, left, lower lobe, needle core biopsy: - Scattered highly atypical epithelial cells, consistent wi th ?? adenocarcinoma. Electronically signed by: ?Lynda RUELAS, Mandie Marin Verified: ??09/30/2021 13:21 ??Pathologist Performed at: ??-[facility] Dept. of Pathology, [place], [place] DISCUSSION The specimen contains limite d cellularity, showing scattered markedly atypical cells in a background of fibroela stosis. By report, the patient has a history of lung adenocarcinoma in 2006 and 1997 as well as breast carcinoma. The immunophenotype of the current lesional cells is compatible with lung origin. ADDITIONAL STUDIES Review of the provided immun ohistochemical stains shows that the lesional cells are positive for TTF1 and negative for p40 and GATA3. SPECIMEN(S) SUBMITTED CONSULTATION CASE A - 4 slide(s) labeled [id number], collection date 04/06/2018. [id number] Report to: [facility] Surgical Pathology Department [facility], [address] [place], [place] ??[address] CLINICAL INFORMATION Former smoker, history of br east cancer, s/p RLL lobectomy for NSCLC with enlarging b/l pulmonary nodules as we ll as a slower ?growing larger mixed attenuation lesion within the LLL SPECIMEN PROCESSING _ pathology slide(s) are rev iewed. ??Refer to Diagnosis and Specimen Submitted for specific case information. For the full text of the _ r eport(s) please refer to Non-DH Documentation Pathology in the electronic health record ( ??eDH). Specimen (Source) Anatomical Collection Method Collection Time Re ceived Time Location / / Volume Laterality 09/25/2021 3:28 PM EST Yovanny Carlson MD PATHOLOGY/CYTOLOGY ORDERABLE S Performing Organization Address City/State/[facility] [place] [address] documented in this encounter Visit Diagnoses Not on filedocumented in this encounter Care Teams Welding Pantograph Operator Relationship Specialty Start Date End Date Soila Faustin MD PCP - General General Internal Medicine 09/19/21 2 [address] [place] [address] documented as of this encounter
--- OUTSIDE RECORDS SUMMARY | 2022-04-22 14:08 | XMS_ITS | Encounter Summary ---
:1945 Author Organization [place] [address] Care Team Providers Name Role Phone Arianna [...] liver Medication management Yovanny Carlson MD [facility] Hem Onc Office Procedures [address] HEMATOLOGY/[place] [phone] Fax: Referral ID Status Reason Start Date Expiration Date Visits V isits Requested Authorized [id number] Pending 09/28/2021 09/27/2022 99 99 Review Encounter Details Date Type Department Care Team Description 11/20/2021 Infusion Hematology Oncology at [facility] malignant neoplasm of liver; [facility] Medication management; [address] [place] [address] Primary malignant neoplasm o f left lower lobe of lung [place], [place] [phone] Social History Tobacco Use [...] Visit Hematology and Oncology Orin Summers APRN [facility] HEMATOLOGY AND O [place], [place] [address] (Wo rk) 04/28/2022 Infusion Hematology [...] (IV) Procedure: Accessing Implanted Vascular Access Devices (734) procedure and/or Intravenous (IV) Job Aid: Adult Flushing & Catheter Care (4770) job aid for additional information regarding guidelines [...] Job Aid: Adult Flushing & Catheter Care (1600) job aid for additional information regarding guidelines and administration., Routine documented in this encounter Care Teams Rotary Saw Operator Relationship Specialty Start Date End Date Arianna Nunez MD PCP - General Family Medicine 10/28/21 [address] [place] [address] documented as of this encounter
--- OUTSIDE RECORDS SUMMARY | 2022-04-22 14:08 | XMS_ITS | Encounter Summary ---
:1945 Author Organization [facility] [place] [address] Care Team Providers Name Role Phone Soila Faustin MD Primary Care Provider Encounter Details Date Type Department Care Team Description 10/07/2021 Notes Only Hematology/Oncology at Nel Cabrera MSW [facility] OFFICE OF CARE [address] [place] [phone] Social History Tobacco Use Types Packs/Day Years [...] infusionvisit to introduce myself and role of transition social worker to assess/address barriers to getting to and [...] activities. She does have a HM from [facility] once a week for 2 hours to help with chores. She has a visiting nurse once a month. Her housing case manager is Preeti from [facility]. Pt uses [facility] for transportation and she [...] Counseling Community Resource Plan: Informed pt of SOCIAL SERVICES DIRECTOR availability and contact information. Will follow to assess/address psychosocial needs. SHAVON Alonzo, RENTAL SALES REPRESENTATIVE, OSW-C [employer] [facility] documented in this encounter Plan of Treatment Upcoming Encounters Date Type Specialty Care Team Description 04/28/2022 Office Visit Hematology and Oncology Orin Summers, AUDIO VISUAL ARTS DIRECTOR [facility] [address] HEMATOLOGY AND O NCOLOGY [place], [place] [address] (Wo rk) 04/28/2022 Infusion Hematology and Oncology documented as of this encounter Visit Diagnoses Not on filedocumented in this encounter Care Teams Grinder Lap Relationship Specialty Start Date End Date Soila Faustin MD PCP - General General Internal Medicine 09/19/21 2 [address] [place] [address] documented as of this encounter
--- OUTSIDE RECORDS SUMMARY | 2022-04-22 14:08 | XMS_ITS | Encounter Summary ---
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 Medication management Yovanny Carlson MD [facility] Hem Onc Office Procedures [address] HEMATOLOGY/[place] [phone] Fax: Referral ID Status Reason Start Date Expiration Date Visits V isits Requested Authorized [id number] Pending 09/28/2021 09/27/2022 99 99 Review Encounter Details Date Type Department Care Team Description 01/13/2022 Infusion Hematology Oncology at [facility] malignant neoplasm of liver; [facility] Medication management; [address] [place] [address] Primary malignant neoplasm o f left lower lobe of lung [place], [place] [phone] Social History Tobacco Use Types Packs/Day Years Used Date Current Every Day Smoker Cigarettes 0.25 63 Smokeless Tobacco: Never Used Comments: 1 cigarette daily Sex Assigned at Date Recorded Not on file documented as of this encounter Progress Notes Helen Orozco RN - 01/13/2022 10:30 AM EDT INFUSION THERAPY ADMINISTRATION NOTES DIAGNOSIS: NSCLC CYCLE #: 5, Day 1 - Pembrolizumab REASON FOR VISIT: To receive chemotherapy. SUBJECTIVE: Carly offers no complaints. OBJECTIVE: O2, 1L NC continuously. Seen by provider. Ready to treat. LAB DATA: WBC - 8.75, Hg - 35.8, Plt Ct - 246, ANC - 6.98, BUN/Cr - 27/1.0, MG - 2.1, TSH/Free T4 - 2.66/1.10 IV ACCESS: Port accessed off site. Flushes readily with brisk blood return. Pre administration: Chemotherapy orders independently verified for drug name, route, and dosage per patient's height, weight and BSA by Helen Orozco, RN and Staff Pharmacist(s). REACTIONS (DESCRIPTION, TIME, [...] Visit Hematology and Oncology Orin Summers APRN [facility] HEMATOLOGY AND O [place], [place] [address] (Wo rk) 04/28/2022 Infusion Hematology [...] Rate Site heparin (pf) (porcine) (100 Given 01/13/2022 12:09 PM EDT 500 Un its units/mL) flush 5 mL syringe 500 Units 500 Units, Intravenous, ONCE PRN, Starting on Thu01/13/22 at 1037, Until Thu01/13/22 at 1639, Line Care, Refer to Intravenous (IV) Procedure: Accessing Implanted Vascular Access Devices (654) procedure and/or Intravenous (IV) Job Aid: Adult Flushing & Catheter Care (1024) job aid for additional information regarding guidelines and administration., Routine pembrolizumab (Keytruda) 200 mg in New Bag 01/13/2022 11:36 AM EDT 200 mg 216 mL/hr sodium chloride 0.9% 108 mL infusion 200 mg, Intravenous, ONCE, 1 dose, On Thu01/13/22 at 1200, Administer over 30 Minutes, Flush line with NS after each dose., This agent is restricted to outpatient use. Is this drug being given as an outpatient? Yes sodium chloride 0.9 % (flush) (BD PosiFlush Given 12/27 12:08 PM EDT 20 mLs Normal Saline 0.9) flush 5-20 mL 5-20 mL, Intravenous, EVERY 1 MIN PRN, Starting on Thu01/13/22 at 1037, Until Thu01/13/22 at 1639, Line Care, Flush pertains to all indwelling lines. Flush per protocol found in the job aid using the link provided on this medication record. Refer to Intravenous (IV) Job Aid: Adult Flushing & Catheter Care (5066) job aid for additional information regarding guidelines and administration., Routine documented in this encounter Care Teams Water Taxi Boat Mate Relationship Specialty Start Date End Date Arianna Nunez MD PCP - General Family Medicine 10/28/21 [address] [place] [address] documented as of this encounter
--- OUTSIDE RECORDS SUMMARY | 2022-04-22 14:08 | XMS_ITS | Encounter Summary ---
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; (TeleHealth) Oncology at [facility] Secondary malignant neoplasm of liver [facility] [address] [place], [place] HEMATOLOGY/ONCOLOGY [phone] DEPT [phone] [place], [place] [address] (Wo rk) Social History Tobacco Use Types Packs/Day Years Used Date Current Every Day Smoker Cigarettes 63 Smokeless Tobacco: Never Used Comments: 1 cigarette daily Sex Assigned at Date Recorded Not on file documented as of this encounter Last Filed Vital Signs Vital Sign Reading Time Taken Comments Blood Pressure 135/53 11/20/2021 1:53 PM EST Pulse 81 11/20/2021 1:53 PM EST Temperature 36.6 ??C (97.8 ??F) 11/20/2021 1:53 PM EST Respiratory Rate 20 11/20/2021 1:53 PM EST Oxygen Saturation 91% 11/20/2021 1:53 PM 91% on 3L o f oxygen EST via NC. Inhaled Oxygen - - Concentration Weight 73.2 kg (161 lb 4.8 11/20/2021 1:53 PM oz) EST Height 158.5 cm (5' 2.4) 11/20/2021 1:53 PM EST Body Mass Index 29.12 11/20/2021 1:53 PM EST documented in this encounter Progress Notes Yovanny Carlson MD - 11/20/2021 2:00 PM EST Images from the original note were not included. Hematology & Medical Oncology [address] [address] Due to the COVID-19 pandemic this visit is being conducted via televideo. Carly Arguelles is being seen for the [...] pembrolizumab with overall palliative intent. She is transferred her care to [facility] as she has recently moved. She [...] appears to be tolerating treatment well. Plan: # Metastatic adenocarcinoma of the lung - CT scan from 10.29.21 reviewed. No progression. T8 compression fracture noted. With her recent falls seems less likely to be a pathologic fracture. MRI would be difficult for her so would follow for now - Labs and toxicities assessed and acceptable for ongoing treatment. - Continue maintenance pembrolizuman -RTC in 3 weeks # Somnolent episodes- seem to occur only when she is sitting and seem likely she is falling asleep and then falling down (e.g off the toilet). Would be primarily concerned about medications given that she is on the chronic opioids. Recently stopped the amitriptyline. Would not be likely related to hercancer or her treatment - She indicated she is planning to meet with Dr. Nunez to review medicatrions Yovanny Carlson MD, MS 11/20/2021 Medical Oncology & Hematology [facility] CC: Arianna Nunez MD HPI/Interval History/Subjective: Last seen 10.28.21 Carly Arguelles is a 76 y.o. female [...] on the toilet. Feels tired right now Has had several falls over the past few month-always after she has fallen asleep. Never when she's up and around. Having headaches now that she is of [...] was very difficult.. Moved to [facility] 2021. Lives in [facility] (prior living arrangement that she had with her stepson was deemed unsafe) Lives alone. Working well. Utilizes meals on wheels and RTC services. Uses Medicaid. 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 Also worked in [employer]. Tobacco use: Still smokes 1 cig per day. 50+ pk year hx. Alcohol use: Does not drink. Financial Distress: Limited. Arvind Quigley is her casey saw operator through [employer] Likes to read and do jigsaw puzzles. Likes mysteries Family History: Mother- Dscd 50 due diabetic complications Father- Dscd due to CHF. Doesn't know a lot of details Oncology Overview: # Malignant neoplasm of female breast ([facility]) 1997: Stage 1 Left ductal breast cancer [...] b/l lung nodules Started treatment with pembrolizumab. 5/21- PET scan showed partial treatment response with [...] of biopsy ONCBCN ONCOLOGY (AMB) 10/07/2021 10/28/2021 Day, Cycle Day 1, Cycle 1 Day 1, Cycle 2 pembrolizumab 25 mg/mL (Keytruda) IV 200 mg 200 mg Patient Active Problem List Diagnosis Date Noted ??? Secondary malignant neoplasm of liver 10/07/2021 ??? Medication management 10/07/2021 ??? 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 Codeine Anaphylaxis Patient states she is not allergic to codeine 04/09/21 13:49 ??? Penicillins Anaphylaxis ??? Tetracycline Anaphylaxis Medications 11/20/21 1406 Medication Sig Taking? morphine CR (Ms Contin) [...] DAY Yes losartan (COZAAR) 100 mg Tablet 50 mg. Yes polyethylene glycoL (Miralax) 17 gram/dose Powder [...] A DAY NEEDED FOR DIFFICULTY BREATHING Yes [facility] Spacer USE DIRECTED Yes DULoxetine DR (Cymbalta) [...] AREDS ORAL) Take by mouth Daily. Yes amitriptyline (Elavil) 100 mg Tablet TAKE [...] Encounters: 11/20/21 81 10/28/21 88 10/07/21 81 Body surface area is 1.8 meters squared. Wt Readings from Last 3 Encounters: 11/20/21 [...] 24 hrs: Temp Pulse Resp BP SpO2 11/20/21 1353 36.6 ??C (97.8 ??F) 81 20 135/53 91 % Physical Exam Constitutional: General: Not [...] neutrophil count 5.42 Review of Imaging Data: 2.. 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
--- OUTSIDE RECORDS SUMMARY | 2022-04-22 14:08 | XMS_ITS | Encounter Summary ---
:1945 Author Organization [facility] [place] [address] Care Team Providers Name Role Phone Arianna Nunez MD Primary Care Provider Encounter Details Date Type Department Care Team Description 10/28/2021 Office Visit Hematology/Oncology Lanette Dimas, Prim prema malignant neoplasm of left lower lobe of lung; at [facility] MOLD PRESSER Secondary malignant neoplasm of liver [address] [place] [address], [place] [facility] [place] [address] [place], [place] [phone] (Wo rk) Social History Tobacco Use Types [...] in this encounter Progress Notes Lanette Dimas, MOLD PRESSER - 10/28/2021 10:00 AM EST Images from the original note were not included. Hematology & Medical Oncology [place] [phone] Carly Arguelles is being seen for the [...] C2. She is transferred her care to [facility] as she has recently moved. She has [...] questions/concerns or new symptoms. Lanette Dimas MSN, MOLD PRESSER, AOCNP Medical Oncology HPI/Interval History/Subjective: (10/28/21) Carly [...] 2020 which was very difficult.. Moved to [facility] 2021. Lives in [facility] apartments (prior living arrangement that she had with her stepson was deemed unsafe) Lives alone. Working well. Utilizes meals on wheels and RTC services. Uses Medicaid. 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 Also worked in [employer]. Tobacco use: Still smokes 1 cig per day. 50+ pk year hx. Alcohol use: Does not drink. Financial Distress: Limited. Arvind Quigley is her case management director through [employer] Likes to read and do jigsaw puzzles. Likes mysteries Family History: Mother- Dscd 50 due diabetic complications Father- Dscd due to CHF. Doesn't know a lot of details Oncology Overview: # Malignant neoplasm of female breast (HCC-[facility]) 1997: Stage 1 Left ductal breast cancer - T1a,N0,M0,G1 - ER+/AK-. 0/12 node involvement. - Completed 5 years [...] PRIOR TO PORT ACCESS Yes Noel Enriquez [facility] Spacer USE DIRECTED Yes DULoxetine DR (Cymbalta) [...] rolling walker. Wearing O2 by NC> HENT: [id number] hematoma on left skull. 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
--- OUTSIDE RECORDS SUMMARY | 2022-04-22 14:08 | XMS_ITS | Encounter Summary ---
:1945 Author Organization [facility] [place] [address] Care Team Providers Name Role Phone Soila Faustin MD Primary Care Provider Encounter Details Date Type Department Care Team Description 09/25/2021 External Results Medical Records Provider, [facility] [place] [phone] Social History Tobacco Use Types Packs/Day Years Used Date Never Assessed Sex Assigned at Date Recorded Not on file documented as of this encounter Plan of Treatment Upcoming Encounters Date Type Specialty Care Team Description 04/28/2022 Office Visit Hematology and Oncology Orin Summers APRN [facility] ER DR HEMATOLOGY AND O NCOLOGY [place], [place] [address] (Wo rk) 04/28/2022 Infusion Hematology [...] on filedocumented in this encounter Care Teams Airplane First Officer Relationship Specialty Start Date End Date Soila Faustin MD PCP - General General Internal Medicine 09/19/21 2 [address] [place] [address] documented as of this encounter
--- OUTSIDE RECORDS SUMMARY | 2022-04-22 14:08 | XMS_ITS | Encounter Summary ---
:1945 Author Organization [facility] [place] [address] Care Team Providers Name Role Phone Arianna Nunez MD Primary Care Provider Encounter Details Date Type Department Care Team Description 01/06/2022 Telephone Hematology Oncology at Amanda Morris RN [address] [phone] Social History Tobacco Use [...] Visit Hematology and Oncology Orin Summers APRN [facility] HEMATOLOGY AND O NCOLOGY [place], [place] [address] (Wo rk) 04/28/2022 Infusion Hematology and Oncology documented as of this encounter Visit Diagnoses Not on filedocumented in this encounter Care Teams Anaesthetic Technician Relationship Specialty Start Date End Date Arianna Nunez MD PCP - General Family Medicine 10/28/21 [address] [place] [address] documented as of this encounter
--- OUTSIDE RECORDS SUMMARY | 2022-04-22 14:08 | XMS_ITS | Encounter Summary ---
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 Hematology & Medical Oncology [address] [phone] Carly Arguelles is being seen for the [...] intent. She has transferred her care to [facility] as she has recently moved. She [...] occasionally goes down to 1L. Orin Summers ASSOCIATE TEAM PHYSICIAN 02/03/2022 Medical Oncology & Hematology [facility] HPI/Interval History/Subjective: Last seen 01/13/22 [...] [facility]. Lives in [facility] apartments (prior living arrangement that she had with her stepson was deemed unsafe) Lives alone. Working well. Utilizes meals on wheels and RTC services. Uses Medicaid. 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 Also worked in [employer]. Tobacco use: Still smokes 1 cig per day. 50+ pk year hx. Alcohol use: Does not drink. Financial Distress: Limited. Arvind Quigley is her patient case manager through [employer] Likes to read and do jigsaw puzzles. Likes mysteries Family History: Mother- Dscd 50 due diabetic complications Father- Dscd due to CHF. Doesn't know a lot of details Oncology Overview: # Malignant neoplasm of female breast ([facility]) 1998: Stage 1 Left ductal breast cancer - T1a,N0,M0,G1 - ER+/ID-. 0/12 node involvement. - Completed 5 years [...] TIMES A DAY NEEDED FOR DIFFICULTY BREATHING [facility] Spacer USE DIRECTED DULoxetine DR (Cymbalta) 60 [...] Imaging Data: 01.06.22 CTA performed in the [facility] ED compared to 10/29/2021 No evidence of pulmonary embolism stable appearance of right pleural collection and areas of nodularity and scarring 2.22 Review of Pathology Data: documented in this encounter Plan of Treatment Upcoming Encounters Date Type Specialty Care Team Description 04/28/2022 Office Visit Hematology and Oncology Orin Summers APRN [facility] HEMATOLOGY AND O NCOLOGY [place], [place] [address] (Wo rk) 04/28/2022 Infusion Hematology and Oncology documented as of this encounter Visit Diagnoses Diagnosis 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
--- OUTSIDE RECORDS SUMMARY | 2022-04-22 14:08 | XMS_ITS | Encounter Summary ---
:1945 Author Organization [facility] [place] [address] Care Team Providers Name Role Phone Soila Faustin MD Primary Care Provider Encounter Details Date Type Department Care Team Description 09/24/2021 Abstract Hematology/Oncology at [address] [phone] Social History Tobacco Use Types Packs/Day Years Used Date Never Assessed Sex Assigned at Date Recorded Not on file documented as of this encounter Plan of Treatment Upcoming Encounters Date Type Specialty Care Team Description 04/28/2022 Office Visit Hematology and Oncology ForOrin love, ELECTRICAL AND INSTRUMENTATION MECHANIC [facility] ER HEMATOLOGY AND O NCOLOGY [place], [place] [address] (Wo rk) 04/28/2022 Infusion Hematology and Oncology documented as of this encounter Visit Diagnoses Not on filedocumented in this encounter Care Teams Black Powder Glazing Operator Relationship Specialty Start Date End Date Soila Faustin MD PCP - General General Internal Medicine 09/19/21 2 [address] [place] [address] documented as of this encounter
--- OUTSIDE RECORDS SUMMARY | 2022-04-22 14:08 | XMS_ITS | Encounter Summary ---
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 neoplasm of liver Medication management Yovanny Carlson MD [facility] Hem Onc Office Procedures [address] HEMATOLOGY/[place] [phone] Fax: Referral ID Status Reason Start Date Expiration Date Visits V isits Requested Authorized [id number] Pending 09/28/2021 09/27/2022 99 99 Review Encounter Details Date Type Department Care Team Description 02/03/2022 Infusion Hematology Oncology at [facility] malignant neoplasm of liver; [facility] Medication management; [address] [place] [address] Primary malignant neoplasm o f left lower lobe of lung [place], [place] [phone] Social History Tobacco Use Types Packs/Day Years Used Date Current Every Day Smoker Cigarettes 0.25 63 Smokeless Tobacco: Never Used Comments: 1 cigarette daily Sex Assigned at Date Recorded Not on file documented as of this encounter Progress Notes Nadia Espinosa RN - 02/03/2022 1:30 PM EDT INFUSION [...] Hematology and Oncology Orin Summers APRN [facility] [place], [place] [address] (Wo rk) 04/28/2022 Infusion Hematology [...] (IV) Procedure: Accessing Implanted Vascular Access Devices (924) procedure and/or Intravenous (IV) Job Aid: Adult Flushing & Catheter Care (5100) job aid for additional information regarding guidelines [...] Job Aid: Adult Flushing & Catheter Care (4813) job aid for additional information regarding guidelines and administration., Routine documented in this encounter Care Teams Machine Shop Specialist Relationship Specialty Start Date End Date Arianna Nunez MD PCP - General Family Medicine 10/28/21 [address] [place] [address] documented as of this encounter
--- OUTSIDE RECORDS SUMMARY | 2022-04-22 14:08 | XMS_ITS | Encounter Summary ---
:1945 Author Organization [facility] [place] [address] Care Team Providers Name Role Phone Unavailable Primary Care Provider Unavailable Encounter Details Date Type Department Care Team Description 08/07/2021 Ancillary Procedure Radiology Library at Kelley Faustin [facility] [address] [address] [place] [address] [phone] Social History Tobacco Use Types Packs/Day Years Used Date Never Assessed Sex Assigned at Date Recorded Not on file documented as of this encounter Plan of Treatment Upcoming Encounters Date Type Specialty Care Team Description 04/28/2022 Office Visit Hematology and Oncology ForOrin love, BROTH SETTER [facility] DR HEMATOLOGY AND O NCOLOGY [place], [place] [address] (Wo rk) 04/28/2022 Infusion Hematology [...] Time / Laterality Volume Narrative ESME - 09/24/2021 9:58 AM EST This exam is auto-finalizing. It's purpo se is for storage only. Soila Faustin MD [facility] FILM LIBRARY ORDERABLES Performing Organization Address City/State/ZIP Code Phon e Number [place], [place] documented in this encounter Visit Diagnoses Not on filedocumented in this encounter
--- OUTSIDE RECORDS SUMMARY | 2022-04-22 14:08 | XMS_ITS | Encounter Summary ---
:1945 Author Organization [facility] [address] Care Team Providers Name Role Phone Soila Faustin MD Primary Care Provider Reason for Referral Diagnostic Test (Routine) - Pending Review Specialty Diagnoses / Procedures Referred By Contact Refer red To Contact Radiology Diagnoses 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 Secondary malignant neoplasm of liver Yovanny Carlson MD Procedures CT Chest & Abdomen w Contrast [facility] DR HEMATOLOGY/[place] [address] Referral ID Status Reason Start Expiration Visits Visits Date Date Requested Authorized [id number] Pending Specialty 10/07/2021 04/06/2023 1 1 Review Service Requested Encounter Details Date Type Department Care Team Description 10/07/2021 Office Visit Hematology/Oncology Sheri Carlson MD [facility] DR HEMATOLOGY/[place] [address] 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; at [facility] Lanette Dimas APRN [address] [place] [address] DR MEDICAL ONCOLOGY [place], [place] [id number] Secondary malignant neoplasm of liver [address] [place] [phone] Social History Tobacco Use Types Packs/Day [...] were not included. Hematology & Medical Oncology [place] [phone] Carly Arguelles is being seen for the [...] intent. She is transferring her care to [facility] as she has recently moved. Discussed ongoing management. She appears to be tolerating treatment well. Plan: - Labs and toxicities assessed and acceptable for ongoing treatment. - Will need to obtain her most recent scans for comparisons in our system - Restage with CT scan locally - RTC in 3 weeks Yovanny Carlson MD, MS 10/07/2021 Medical Oncology & Hematology [facility] HPI/Interval History/Subjective: Carly Arguelles is a 76 [...] Last CT scan was in July at [facility]. [facility] PET scan [facility] in [facility] Has had some skin peeling on [...] 2020 which was very difficult.. Moved to [facility] 2021. Lives in [facility] apartments (prior living arrangement that she had with her matthieuon was deemed unsafe) Lives alone. Working well. Utilizes meals on wheels and RTC services. Uses Medicaid. 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 Also worked in [email or web address]. Tobacco use: Still smokes 1 cig per day. 50+ pk year hx. Alcohol use: Does not drink. Financial Distress: Limited. Arvind Quigley is her outpatient case manager through [employer] Likes to read and do jigsaw puzzles. Likes mysteries Family History: Mother- Dscd 50 due diabetic complications Father- Dscd due to CHF. Doesn't know a lot of details Oncology Overview: # Malignant neoplasm of female breast (HCC-CMS) 1997: Stage 1 Left ductal breast cancer - T1a,N0,M0,G1 - ER+/IL-. 0/12 node involvement. - Completed 5 years [...] A DAY NEEDED FOR DIFFICULTY BREATHING Yes [facility] Spacer USE DIRECTED Yes DULoxetine DR (Cymbalta) [...] Visit Hematology and Oncology Orin Summers APRN [facility] HEMATOLOGY AND O NCOLOGY [place], [place] [address] (Wo rk) 04/28/2022 Infusion Hematology and Oncology Scheduled Orders Name [...] liver documented in this encounter Care Teams Cash Applications Specialist Relationship Specialty Start Date End Date Soila Faustin MD PCP - General General Internal Medicine 09/19/[address] [address] documented as of this encounter
--- OUTSIDE RECORDS SUMMARY | 2022-04-22 14:08 | XMS_ITS | Encounter Summary ---
:1945 Author Organization [facility] [place] [address] Care Team Providers Name Role Phone Arianna Nunez MD Primary Care Provider Encounter Details Date Type Department Care Team Description 01/13/2022 Notes Only Hematology/Oncology at Nel Caberra [facility] OFFICE OF CARE [address] [place] [phone] Social History Tobacco Use Types Packs/Day Years [...] 2 hours tohelp with chores. She has Novacem. Pt gets MOW's - 7 meals a week which she finds helpful. She continues to use RCT for rides and schedules her own trips. Pt did not identify any new needs today. Offered support. Reminded pt of DATA SYSTEMS ANALYST availability and contact information. Will follow as indicated. Brief assessment Supportive Counseling documented in this encounter Plan of Treatment Upcoming Encounters Date Type Specialty Care Team Description 04/28/2022 Office Visit Hematology and Oncology Orin Summers, FAB [facility] [place]OLOGY [place] [address] (Wo rk) 04/28/2022 Infusion Hematology and Oncology documented as of this encounter Visit Diagnoses Not on filedocumented in this encounter Care Teams Cutter Operator Helper Relationship Specialty Start Date End Date Arianna Nunez MD PCP - General Family Medicine 10/28/21 [address] [place] [address] documented as of this encounter
--- OUTSIDE RECORDS SUMMARY | 2022-04-22 14:08 | XMS_ITS | Encounter Summary ---
:1945 Author Organization [facility] [place] [address] Care Team Providers Name Role Phone Arianna Nunez MD Primary Care Provider Reason for Visit Reason Comments Chemotherapy Cycle 2, Day 1; Pembro Treatment/Therapy Plan Authorization (Routine) - Pending Review Specialty Diagnoses / Procedures Referred By Contact Refer red To Contact Diagnoses 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 Secondary malignant neoplasm of liver Medication management Yovanny Carlson MD [facility] Hem Onc Office Procedures [address] HEMATOLOGY/[place] [phone] Fax: Referral ID Status Reason Start Date Expiration Date Visits V isits Requested Authorized [id number] Pending 09/28/2021 09/27/2022 99 99 Review Encounter Details Date Type Department Care Team Description 10/28/2021 Infusion Hematology Oncology at [facility] malignant neoplasm of liver; [facility] Medication management; [address] [place] [address] Primary malignant neoplasm o f left lower lobe of lung [place], [place] [phone] Social History Tobacco Use [...] height, weight and BSA by CATHRYN MA, RN and Staff Pharmacist(s). REACTIONS (DESCRIPTION, TIME, [...] Hematology and Oncology MelinaOrin APRN [facility] HEMATOLOGY AND O NCOLOGY [place], [place] [address] (Wo rk) 04/28/2022 Infusion Hematology [...] (IV) Procedure: Accessing Implanted Vascular Access Devices (754) procedure and/or Intravenous (IV) Job Aid: Adult Flushing & Catheter Care (2937) job aid for additional information regarding guidelines [...] Job Aid: Adult Flushing & Catheter Care (7931) job aid for additional information regarding guidelines and administration., Routine documented in this encounter Care Teams Production Director Relationship Specialty Start Date End Date Arianna Nunez MD PCP - General Family Medicine 10/28/21 [address] [place] [address] documented as of this encounter
--- OUTSIDE RECORDS SUMMARY | 2022-04-22 14:08 | XMS_ITS | Encounter Summary ---
:1945 Author Organization [facility] [place] [address] Care Team Providers Name Role Phone Unavailable Primary Care Provider Unavailable Encounter Details Date Type Department Care Team Description 08/08/2021 Ancillary Procedure Radiology Library at Kelley Faustin [facility] [address] [address] [place] [address] [phone] Social History Tobacco Use Types Packs/Day Years Used Date Never Assessed Sex Assigned at Date Recorded Not on file documented as of this encounter Plan of Treatment Upcoming Encounters Date Type Specialty Care Team Description 04/28/2022 Office Visit Hematology and Oncology ForOrin love, REFRIGERATION PLANT CORK INSULATOR [facility] DR HEMATOLOGY AND O NCOLOGY [place], [place] [address] (Wo rk) 04/28/2022 Infusion Hematology [...] Time / Laterality Volume Narrative ESME - 10/24/2021 1:29 PM EST This exam is auto-finalizing. It's purpo se is for storage only. Soila Faustin MD [facility] FILM LIBRARY ORDERABLES Performing Organization Address City/State/ZIP Code Phon e Number [place], [place] documented in this encounter Visit Diagnoses Not on filedocumented in this encounter
--- OUTSIDE RECORDS SUMMARY | 2022-04-22 14:08 | XMS_ITS | Encounter Summary ---
:1945 Author Organization [facility] [place] [address] Care Team Providers Name Role Phone Arianna Nunez MD Primary Care Provider Reason for Referral Diagnostic Test (Routine) - Authorized Specialty Diagnoses / Procedures Referred By Contact Refer red To Contact Radiology Diagnoses 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 Orin Summers APRN Procedures CT Chest & Abdomen wo Contrast [facility] HEMATOLOGY [place] [address] Referral ID Status Reason Start Expiration Visits Visits Date Date Requested Authorized [id number] Authorized Specialty 03/03/2022 09/02/2023 1 1 Service Requested Encounter Details Date Type Department Care Team Description 03/03/2022 Office Visit Hematology/Oncology Sheri Carlson MD [facility] HEMATOLOGY/[place] [address] 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; at [facility] Orin Summers APRN [facility] [place]EMATOLOGY [place] [address] [phone] Social History Tobacco Use Types [...] were not included. Hematology & Medical Oncology [place] [phone] Carly Arguelles is being seen for the [...] intent. She has transferred her care to [facility] as she has recently moved. She has [...] lower O2 (2L or less) Orin Summers CAM MAKER 03/03/2022 Medical Oncology & Hematology [facility] HPI/Interval History/Subjective: Last seen 02/03/22 No [...] 2020 which was very difficult.. Moved to [facility] 2021. Lives in apartments (prior living arrangement that she had with her stepson was deemed unsafe) Lives alone. Working well. Utilizes meals on wheels and RTC services. Uses Medicaid. 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 Also worked in [employer]. Tobacco use: Still smokes 1 cig per day. 50+ pk year hx. Alcohol use: Does not drink. Financial Distress: Limited. Arvind Quigley is her director of casework services through [email or web address] Likes to read and do jigsaw puzzles. Likes mysteries Family History: Mother- Dscd 50 due diabetic complications Father- Dscd due to CHF. Doesn't know a lot of details Oncology Overview: # Malignant neoplasm of female breast (HCC-[facility]) 1997: Stage 1 Left ductal breast cancer - T1a,N0,M0,G1 - ER+/OR-. 0/12 node involvement. - Completed 5 years [...] TIMES A DAY NEEDED FOR DIFFICULTY BREATHING [facility] Spacer USE DIRECTED DULoxetine DR (Cymbalta) 60 [...] Imaging Data: 01.06.22 CTA performed in the [facility] ED compared to 10/29/2021 No evidence of pulmonary embolism stable appearance of right pleural collection and areas of nodularity and scarring 10.29.21 Review of Pathology Data: Yovanny Carlson MD - 03/03/2022 1:00 PM EDT Images from the original note were not included. Hematology & Medical Oncology [place] [phone] Carly Arguelles is being seen for the [...] intent. She has transferred her care to [facility] as she has recently moved. She has [...] occasionally goes down to 1L. Orin Byrdkate CAM MAKER 03/03/2022 Medical Oncology & Hematology [facility] HPI/Interval History/Subjective: Last seen 01/13/22 Seen [...] 2020 which was very difficult.. Moved to [facility] 2021. Lives in apartments (prior living arrangement that she had with her stepson was deemed unsafe) Lives alone. Working well. Utilizes meals on wheels and RTC services. Uses Medicaid. 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 Also worked in [employer]. Tobacco use: Still smokes 1 cig per day. 50+ pk year hx. Alcohol use: Does not drink. Financial Distress: Limited. Arvind Quigley is her director of casework services through [email or web address] Likes to read and do jigsaw puzzles. Likes mysteries Family History: Mother- Dscd 50 due diabetic complications Father- Dscd due to CHF. Doesn't know a lot of details Oncology Overview: # Malignant neoplasm of female breast (HCC-[facility]) 1997: Stage 1 Left ductal breast cancer - T1a,N0,M0,G1 - ER+/OR-. 0/12 node involvement. - Completed 5 years [...] Penicillins Anaphylaxis ??? Tetracycline Anaphylaxis Medications 03/03/22 1267 Medication Sig Taking? magnesium oxide (Mag-Ox) 400 [...] NEEDED FOR DIFFICULTY BREATHING Yes Noel Enriquez [facility] Spacer USE DIRECTED Yes DULoxetine DR [...] neutrophil count 5.42 Review of Imaging Data: 4.08.19 CTA performed in the [facility] ED compared to 10/29/2021 No evidence of pulmonary embolism stable appearance of right pleural collection and areas of nodularity and scarring 2.10.19 Review of Pathology Data: documented in this encounter Plan of Treatment Upcoming Encounters Date Type Specialty Care Team Description 04/28/2022 Office Visit Hematology and Oncology Orin Summers APRN [facility] ER HEMATOLOGY AND O NCOLOGY [place], [place] [address] (Wo rk) 04/28/2022 Infusion Hematology [...] Wheezing documented in this encounter Care Teams Adjunct Faculty Relationship Specialty Start Date End Date Arianna Nunez MD PCP - General Family Medicine 10/28/21 [address] [place] [address] documented as of this encounter
--- OUTSIDE RECORDS SUMMARY | 2022-04-22 14:08 | XMS_ITS | Encounter Summary ---
:1945 Author Organization [facility] [place] [address] Care Team Providers Name Role Phone Soila Faustin MD Primary Care Provider Reason for Visit Reason Comments Chemotherapy Cycle 1, Day 1 - Pembrolizum ab Treatment/Therapy Plan Authorization (Routine) - Pending Review Specialty Diagnoses / Procedures Referred By Contact Refer red To Contact Diagnoses 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 Secondary malignant neoplasm of liver Medication management Yovanny Carlson MD [facility] Hem Onc Office Procedures [address] HEMATOLOGY/[place] [phone] Fax: Referral ID Status Reason Start Date Expiration Date Visits V isits Requested Authorized [id number] Pending 09/28/2021 09/27/2022 99 99 Review Encounter Details Date Type Department Care Team Description 10/07/2021 Infusion Hematology Oncology at [facility] malignant neoplasm of liver; [facility] Medication management; [address] [place] [address] Primary malignant neoplasm o f left lower lobe of lung [place], [place] [phone] Social History Tobacco Use [...] clinic hours (8am-5pm Thursday-Thursday): pt. can call [phone] with questions or concerns. After clinic hours (5pm-8am Thursday-Thursday and weekends) pt can call [phone] and ask for the dynamo tender/oncologist vascular sonographer. Carly Arguelles verbalized understanding of potential chemotherapy side effects [...] and Oncology Orin Summers APRN [facility] [place] [place] [address] (Wo rk) 04/28/2022 Infusion Hematology [...] Job Aid: Adult Flushing & Catheter Care (9337) job aid for additional information regarding guidelines [...] Job Aid: Adult Flushing & Catheter Care (4306) job aid for additional information regarding guidelines and administration., Routine documented in this encounter Care Teams Range Mechanic Relationship Specialty Start Date End Date Soila Faustin MD PCP - General General Internal Medicine 09/19/2110/27/ 2 [address] [place] [address] documented as of this encounter
--- OUTSIDE RECORDS SUMMARY | 2022-04-22 14:08 | XMS_ITS | Encounter Summary ---
:1945 Author Organization [facility] [place] [address] Care Team Providers Name Role Phone Arianna Nunez MD Primary Care Provider Encounter Details Date Type Department Care Team Description 10/29/2021 Ancillary Procedure Radiology Library at Arianna Nunez MD [address] [phone] (Wo rk) Social History Tobacco Use Types Packs/Day Years Used Date Current Every Day Smoker Cigarettes 63 Smokeless Tobacco: Never Used Comments: 1 cigarette daily Sex Assigned at Date Recorded Not on file documented as of this encounter Plan of Treatment Upcoming Encounters Date Type Specialty Care Team Description 04/28/2022 Office Visit Hematology and Oncology Jose Summerssandra Marin, FAB [facility] HEMATOLOGY AND O NCOLOGY [place], [place] [address] (Wo rk) 04/28/2022 Infusion Hematology [...] / Laterality Volume Narrative [facility] - 11/01/2021 9:00 AM EST This exam is auto-finalizing. It's purpo se is for storage only. Arianna Nunez MD IMG FILM LIBRARY ORDERABLES Performing Organization Address City/State/ZIP Code Phon e Number [facility] [place], [place] documented in this encounter Visit Diagnoses Not on filedocumented in this encounter Care Teams Platform Worker Relationship Specialty Start Date End Date Arianna Nunez MD PCP - General Family Medicine 10/28/21 [address] [place] [address] documented as of this encounter
--- OUTSIDE RECORDS SUMMARY | 2022-04-22 14:08 | XMS_ITS | Encounter Summary ---
:1945 Author Organization [facility] [place] [address] Care Team Providers Name Role Phone Arianna Nunez MD Primary Care Provider Encounter Details Date Type Department Care Team Description 02/04/2022 [facility] DR Nuno [facility] HEMATOLOGY/ONCOLOGY DEPT [place], [place] [phone] [place] [address] [phone] (Wo rk) Social History Tobacco Use Types Packs/Day Years Used Date Current Every Day Smoker Cigarettes 0.25 63 Smokeless Tobacco: Never Used Comments: 1 cigarette daily Sex Assigned at Date Recorded Not on file documented as of this encounter Plan of Treatment Upcoming Encounters Date Type Specialty Care Team Description 04/28/2022 Office Visit Hematology and Oncology ForkateJosesandra Marin APRN [facility] HEMATOLOGY AND O NCOLOGY [place], [place] [address] (Wo rk) 04/28/2022 Infusion Hematology and Oncology documented as of this encounter Visit Diagnoses Not on filedocumented in this encounter Care Teams Laborer Vegetable Farm Relationship Specialty Start Date End Date Arianna Nunez MD PCP - General Family Medicine 10/28/21 [address] [place] [address] documented as of this encounter
--- OUTSIDE RECORDS SUMMARY | 2022-04-22 14:08 | XMS_ITS | Encounter Summary ---
:1945 Author Organization [facility] [place] [address] Care Team Providers Name Role Phone Arianna Nunez MD Primary Care Provider Encounter Details Date Type Department Care Team Description 12/16/2021 Office Visit Hematology/Oncology Sheri Carlson MD [facility] DR HEMATOLOGY/[place] [address] 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[facility] [address] [place] [address] DR MEDICAL ONCOLOGY [place], [place] [id number] Secondary malignant neoplasm of liver [address] [place] [phone] Social History Tobacco Use Types Packs/Day [...] in this encounter Progress Notes Lanette Dimas, SODDER - 12/16/2021 2:30 PM EDT Images from the original note were not included. Hematology & Medical Oncology [address] [address] Carly Arguelles is being seen for the [...] intent. She has transferred her care to [facility] as she has recently moved. She [...] anyquestions/concerns or new symptoms. Lanette Dimas MSN, SODDER, AOCNP Medical Oncology HPI/Interval History/Subjective: Last seen [...] [facility] 2021. Lives in [facility] apartments (prior living arrangement that she had with her stepson was deemed unsafe) Lives alone. Working well. Utilizes meals on wheels and RTC services. Uses Medicaid. 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 Also worked in [email or web address]. Tobacco use: Still smokes 1 cig per day. 50+ pk year hx. Alcohol use: Does not drink. Financial Distress: Limited. Arvind Quigley is her pillowcase maker through [employer] Likes to read and do jigsaw puzzles. Likes mysteries Family History: Mother- Dscd 50 due diabetic complications Father- Dscd due to CHF. Doesn't know a lot of details Oncology Overview: # Malignant neoplasm of female breast (H[facility]) 1997: Stage 1 Left ductal breast cancer - T1a,N0,M0,G1 - ER+/[place]-. 0/12 node involvement. - Completed 5 years [...] TIMES A DAY NEEDED FOR DIFFICULTY BREATHING [facility] Spacer USE DIRECTED DULoxetine DR (Cymbalta) [...] Description 04/28/2022 Office Visit Hematology and Oncology Forauer, Orin A, SODDER [facility] HEMATOLOGY AND O NCOLOGY [place], [place] [address] (Wo rk) 04/28/2022 Infusion Hematology and Oncology documented as of this encounter Visit Diagnoses Diagnosis 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 Malignant neoplasm of lower lobe, bronch us, or lung Secondary malignant neoplasm of liver documented in this encounter Care Teams Sheet Rock Taper Helper Relationship Specialty Start Date End Date Arianna Nunez MD PCP - General Family Medicine 10/28/21 Yi [address] [place] [address] documented as of this encounter
--- OUTSIDE RECORDS SUMMARY | 2022-04-22 14:08 | XMS_ITS | Encounter Summary ---
:1945 Author Organization [facility] [address] Care Team Providers Name Role Phone Soila Faustin MD Primary Care Provider Encounter Details Date Type Department Care Team Description 10/04/2021 Orders Only Hematology and Oncology at Yovanny Carlson MD [facility] Pablo arzola HEMATOLOGY/[place] [address] [place] [address] [phone] (Wo rk) Social History Tobacco Use Types Packs/Day Years Used Date Never Assessed Sex Assigned at Date Recorded Not on file documented as of this encounter Plan of Treatment Upcoming Encounters Date Type Specialty Care Team Description 04/28/2022 Office Visit Hematology and Oncology ForOrin love APRN [facility] HEMATOLOGY AND O NCOLOGY [place], [place] [address] (Wo rk) 04/28/2022 Infusion Hematology and Oncology documented as of this encounter Visit Diagnoses Not on filedocumented in this encounter Care Teams Radio Recorder Relationship Specialty Start Date End Date Soila Faustin MD PCP - General General Internal Medicine 09/19/21 2 [address] [place] [address] documented as of this encounter
--- OUTSIDE RECORDS SUMMARY | 2022-04-22 14:08 | XMS_ITS | Encounter Summary ---
:1945 [place] [address] Care Team Providers Name Role Phone Arianna Nunez MD Primary Care Provider Encounter Details Date Type Department Care Team Description 01/06/2022 Ancillary Procedure [facility] [place] [address] HEMATOLOGY/ONCOLOGY [phone] [place], [place] [address] (Wo rk) Social History Tobacco Use Types Packs/Day Years Used Date Current Every Day Smoker Cigarettes 0.25 63 Smokeless Tobacco: Never Used Comments: 1 cigarette daily Sex Assigned at Date Recorded Not on file documented as of this encounter Plan of Treatment Upcoming Encounters Date Type Specialty Care Team Description 04/28/2022 Office Visit Hematology and Oncology MelinaOrin APRN [facility] HEMATOLOGY AND O NCOLOGY [place], [place] [address] (Wo rk) 04/28/2022 Infusion Hematology and Oncology documented as of this encounter Procedures Procedure Name Priority Date/Time Associated Diagnosis Comme nts FILM LIBRARY Routine 01/06/2022 12:00 AM Results for this STORAGE ONLY CT EDT procedure ar e in CHEST the results section. documented in this encounter Results Film Library- Storage Only CT Chest (01/06/2022 12:00 AM EDT) Specimen (Source) Anatomical Location Collection Method / Collectio n Time Received Time / Laterality Volume Narrative RAD - 01/13/2022 1:20 PM EDT This exam is auto-finalizing. It's purpo se is for storage only. Yovanny Carlson MD IMG FILM LIBRARY ORDERABLES Performing Organization Address City/State/ZIP Code Phon e Number [facility] RAD [place], [place] documented in this encounter Visit Diagnoses Not on filedocumented in this encounter Care Teams Philanthropy Officer Relationship Specialty Start Date End Date Arianna Nunez MD PCP - General Family Medicine 10/28/21 Yi [address] [place] [address] documented as of this encounter
--- OUTSIDE RECORDS SUMMARY | 2022-04-22 14:08 | XMS_ITS | Encounter Summary ---
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 Secondary malignant neoplasm of liver Medication management Yovanny Carlson MD [facility] Hem Onc Office Procedures [address] HEMATOLOGY/[place] [phone] Fax: Referral ID Status Reason Start Date Expiration Date Visits V isits Requested Authorized [id number] Pending 09/28/2021 09/27/2022 99 99 Review Encounter Details Date Type Department Care Team Description 12/16/2021 Infusion Hematology Oncology at [facility] malignant neoplasm of liver; [facility] Medication management; [address] [place] [address] Primary malignant neoplasm o f left lower lobe of lung [place], [place] [phone] Social History Tobacco Use [...] Hematology and Oncology Orin Summers APRN [facility] AND [facility] [place] [address] (Wo rk) 04/28/2022 Infusion Hematology [...] (IV) Procedure: Accessing Implanted Vascular Access Devices (314) procedure and/or Intravenous (IV) Job Aid: Adult Flushing & Catheter Care (6277) job aid for additional information regarding guidelines [...] Job Aid: Adult Flushing & Catheter Care (0177) job aid for additional information regarding guidelines and administration., Routine documented in this encounter Care Teams Behavioral Assistant Relationship Specialty Start Date End Date Arianna Nunez MD PCP - General Family Medicine 10/28/21 Yi [address] [place] [address] documented as of this encounter
--- OUTSIDE RECORDS SUMMARY | 2022-04-22 14:08 | XMS_ITS | Encounter Summary ---
:1945 Author Organization [facility] [place] [address] Care Team Providers Name Role Phone Arianna Nunez MD Primary Care Provider Encounter Details Date Type Department Care Team Description 10/28/2021 Notes Only Hematology/Oncology at Nel Cabrera MSW [facility] OFFICE OF CARE [address] [place] [phone] Social History Tobacco Use Types Packs/Day Years [...] needs today. Offered support. Reminded pt of TELECINE OPERATOR availability and contact information. Will follow for support and resources. Brief assessment Supportive Counseling documented in this encounter Plan of Treatment Upcoming Encounters Date Type Specialty Care Team Description 04/28/2022 Office Visit Hematology and Oncology MelinaOrin, UPPER INSPECTOR [facility] HEMATOLOGY AND O NCOLOGY [place], [place] [address] (Wo rk) 04/28/2022 Infusion Hematology and Oncology documented as of this encounter Visit Diagnoses Not on filedocumented in this encounter Care Teams Car Loader Relationship Specialty Start Date End Date Arianna Nunez MD PCP - General Family Medicine 10/28/21 Yi [address] [place] [address] documented as of this encounter
--- OUTSIDE RECORDS SUMMARY | 2022-04-22 14:09 | XMS_ITS | Clinical Summary ---
:1945 Author Organization [facility] Address [address] [place] [address] Care Team Providers Name Role Phone Ramin [...] Left ductal breast cancer - T1a,N0,M0,G1 - ER+/[place]-. 012 node involvement. - Completed 5 years tamoxifen. 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 Primary malignant neoplasm of lung ([facility]) 0 Overview: Problem 28 March 2018: Right [...] Date/Time Associated Diagnosis Comme nts [facility] Today 02/12/2022 14:45 LAB PCR EDT COVID-19 TESTING Routine 02/12/2022 14:45 Results for this EDT procedure are i n the results section. from Last 3 Months Results COVID-19 TEST [facility] PCR (02/12/2022 14:45 EDT) Specimen Swab Performing Organization Address [facility] Phon e Number [facility] [address] [place] [address] SERVICES COVID-19 TESTING (02/12/2022 14:45 EDT) COVID-19 rt-PCR Negative Negative [facility] Result Comment: CENTER LABORATORY This test [...] performed using the tim SARS-CoV-2 assay ([employer] on the Itm 6800 System Performing Lab Tim 6800 [facility] Lab [facility] SERVICES Specimen Swab Performing Organization Address City/[facility]/ZIP Code Phon e Number [facility] [address] [place] [address] SERVICES from Last 3 Months Insurance Payer Benefit Plan / Subscriber ID Effective Phone Address T ype Group Dates MEDICARE MEDICARE A/B [id number] 2001-Pres [address] [place] [address] [place]ID [place] [id number] 2021-Prese [address] [place] nt [facility] [id number] MED[place]ID [place] [id number] 2021-Pres [address] Medicaid [place] [facility] [id number] Blane,Carly Personal/Family Self 1945 [address] (Home) [place] [address] Advance Directives For more information, please contact: [phone] Documents on File Type Date Recorded Patient Dock Hand Explanati on [place] Directives and Living Will Power of Cut Off Saw Operator Pipe Blanks Care Teams Crystalizer Operator Relationship Specialty Start Date End Date Soila Faustin PCP - General Internal Medicine - Primary 02/06/20 [address] [place] [address]
--- OUTSIDE RECORDS SUMMARY | 2022-04-22 14:09 | XMS_ITS | Encounter Summary ---
:1945 Author Organization [facility] Address [address] [place] [address] Care Team Providers Name Role Phone Soila Faustin Primary Care Provider Encounter Details Date Type Department Care Team Description 02/13/2022 Lab Requisition [facility] Outr Resulting Lab, Pathology & Laboratory Provider [facility] [address] [place] [address] Social History Tobacco Use Types [...] Date/Time Associated Diagnosis Comme nts [facility] 02/12/2022 14:45 LAB PCR EDT COVID-19 TESTING Routine 02/12/2022 14:45 Results for this EDT procedure are i n the results section. documented in this encounter Results COVID-19 TEST [facility] PCR (02/12/2022 14:45 EDT) Specimen Swab Performing Organization Address City/State/ZIP Code Phon e Number [facility] [address] [place] [address] SERVICES COVID-19 TESTING (02/12/2022 14:45 EDT) COVID-19 rt-PCR Negative Negative [facility] Result Comment: CENTER LABORATORY [...] was performed using the tim SARS-CoV-2 assay ([employer] on the Tim 6800 System Performing Lab Tim 6800 [facility] Lab [facility] SERVICES Specimen Swab Performing Organization Address City/State/ZIP Code Phon e Number [facility] [address] [place] [address] SERVICES documented in this encounter Visit Diagnoses Not on filedocumented in this encounter Care Teams Climbing Guide Relationship Specialty Start Date End Date Soila Faustin PCP - General Internal Medicine - Primary 02/06/20 [address] [place] [address] documented as of this encounter
--- OUTSIDE RECORDS SUMMARY | 2022-04-22 14:09 | XMS_ITS | Encounter Summary ---
:1945 Author Organization [facility] Address [address] [place] [address] Care Team Providers Name Role Phone Soila Faustin Primary Care Provider Reason for Visit Reason Onset Date Comments Other 03/07/2021 call/discussion Encounter Details Date Type Department Care Team Description 03/07/2021 Telephone [facility] - Hardeep Bella, Ot her (call/discussion) [facility] Adult Hematology & MD Oncology [address] [facility], [address] [place] [address]., [facility] 1-[address] [place] [address] [address] [place] [address] Social History Tobacco Use Types [...] on filedocumented in this encounter Care Teams Rn Intern Relationship Specialty Start Date End Date Soila Fuastin PCP - General Internal Medicine - Primary 02/06/20 4 [place] [address] documented as of this encounter
--- OUTSIDE RECORDS SUMMARY | 2022-04-22 14:09 | XMS_ITS | Encounter Summary ---
:1945 Author Organization [facility] [place] [address] Care Team Providers Name Role Phone Unavailable Primary Care Provider Unavailable Encounter Details Date Type Department Care Team Description 04/29/2018 Ancillary Procedure Radiology Library at Kelley Faustin [facility] [address] [address] [place] [address] [phone] Social History Tobacco Use Types Packs/Day Years Used Date Never Assessed Sex Assigned at Date Recorded Not on file documented as of this encounter Plan of Treatment Upcoming Encounters Date Type Specialty Care Team Description 04/28/2022 Office Visit Hematology and Oncology ForOrin love, FAB [facility] DR HEMATOLOGY AND O NCOLOGY [place], [place] [address] (Wo rk) 04/28/2022 Infusion Hematology [...] Time Received Time / Laterality Volume Narrative [facility] - 09/24/2021 9:59 AM EST This exam is auto-finalizing. It's purpo se is for storage only. Soila Faustin MD [facility] FILM LIBRARY ORDERABLES Performing Organization Address City/State/ZIP Code Phon e Number RAD [place], [place] documented in this encounter Visit Diagnoses Not on filedocumented in this encounter
--- OUTSIDE RECORDS SUMMARY | 2022-04-22 14:09 | XMS_ITS | Encounter Summary ---
:1945 [place] [address] Care Team Providers Name Role Phone Unavailable Primary Care Provider Unavailable Encounter Details Date Type Department Care Team Description 06/26/2018 Ancillary Procedure Radiology Library at Kelley Faustin [facility] [address] [address] [place] [address] [phone] Social History Tobacco Use Types Packs/Day Years Used Date Never Assessed Sex Assigned at Date Recorded Not on file documented as of this encounter Plan of Treatment Upcoming Encounters Date Type Specialty Care Team Description 04/28/2022 Office Visit Hematology and Oncology ForOrin love APRN [facility] DR HEMATOLOGY AND O NCOLOGY [place], [place] [address] (Wo rk) 04/28/2022 Infusion Hematology [...] is for storage only. Soila Faustin MD G FILM LIBRARY ORDERABLES Performing Organization Address City/State/ZIP Code Phon e Number RAD [place], [place] documented in this encounter Visit Diagnoses Not on filedocumented in this encounter
--- OUTSIDE RECORDS SUMMARY | 2022-04-22 14:09 | XMS_ITS | Encounter Summary ---
:1945 Author Organization [facility] Address [address] [place] [address] Care Team Providers Name Role Phone Soila Faustin Primary Care Provider Reason for Referral Consult (See Order Priority) - Specialty Report Received Specialty Diagnoses / Procedures Referred By Contact Refer red To Contact Diagnoses Primary malignant neoplasm of lung, unspecified laterality (HCC-CMS) (HCC) Liver metastases (HCC-CMS) (HCC) Hardeep Bella MD [place] 130 [facility] [address] [place] [phone] [place] [address] Fax: Referral ID Status Reason Start Expiration Visits Visits Date Date Requested Authorized [id number] Specialty Specialty 1 1 Report Services 1 Received Required Question Answer Reason for Request: Transfer of care- Metastatic non-small cell lung adenocarcinoma Reason for Visit Reason Onset Date Comments Other 09/13/2021 Encounter Details Date Type Department Care Team Description 09/13/2021 Telephone [facility] Hardeep Kelley MD Other Adult Hematology & O ncology [address], [facility] [address] [place] [address] [place] [phone] (Wo rk) Social History Tobacco Use Types Packs/Day Years Used Date Current Every Day Smoker Cigarettes 0.5 50 Smokeless Tobacco: Never Used Alcohol Use Standard Drinks/Week Comments No 0 (1 standard drink = 0.6 oz pure alcoho l) Sex Assigned at Date Recorded Not on file documented as of this encounter Miscellaneous Notes Telephone Encounter - Gertrude Dueñas RN - 09/16/2021 1444 EST Gisel- referral placed. Please fax notes to [facility] elephone Encounter - Gertrude Dueñas RN - 09/16/[address] Bella- spoke with home health nurse. Patient has moved to the [place] [facility] area and would like to transfer care to the [facility] in [place] [facility]. You ok with me sending referral? elephone Encounter - Gertrude Dueñas RN - 09/16/2021 1116 EST Hardeep is unaware of need for referral. Called Anne Dorsey at [facility] to clarify their request for a referral. No answer, left VM asking her to call me back to go over. elephone Encounter - Gertrude Dueñas RN - 09/16/2021 0925 EST Eswar- do you know anything about referral? If so, what indications would I put on the referral. elephone Encounter - Gertrude Dueñas RN - 09/13/2021 1126 EST Can you advise what the referral is for? I Need indications or reason for referral. Telephone Encounter - Kenya, Gisel - 09/13/2021 1122 EST PT needs a referral to [facility]. documented in this encounter Plan of Treatment Scheduled Referrals Name Type Priority Associated Diagnoses Order S chedule AMB CONS/FOLLOW UP Outpatient Referral Urgent Primary maligna nt Expected: ONCOLOGY neoplasm of lung, 09/18/2021 unspecified (Approximate), laterality (HCC-CMS) Expires : (HCC) 09/16/2022 Liver metastases (HCC-CMS) (HCC) documented as of this encounter Visit Diagnoses Diagnosis Primary malignant neoplasm of lung, unsp ecified laterality (HCC-CMS) (HCC) - Primary Liver metastases (HCC-CMS) (HCC) Secondary malignant neoplasm of liver documented in this encounter Care Teams Beta Tester Relationship Specialty Start Date End Date Soila Faustin PCP - General Internal Medicine - Primary 02/06/20 [address] [place] [address] documented as of this encounter
--- OUTSIDE RECORDS SUMMARY | 2022-04-22 14:09 | XMS_ITS | Encounter Summary ---
:1945 Author Organization [facility] Address [address] [place] [address] Care Team Providers Name Role Phone Soila Faustin Primary Care Provider Reason for Visit Reason Onset Date Comments Appointment Related 08/13/2021 Encounter Details Date Type Department Care Team Description 08/13/2021 Telephone [facility] - Hardeep Bella MD Appointment Related [facility] Adult Hematology & 130 [facility], Oncology MOB-B [address] [facility] [address] [place] [address] [place], [place] [phone] (Wo rk) Social History Tobacco Use [...] on filedocumented in this encounter Care Teams Beef Skinner Relationship Specialty Start Date End Date Soila Faustin PCP - General Internal Medicine - Primary 02/06/[address] [place] [address] [place] [address] documented as of this encounter
--- OUTSIDE RECORDS SUMMARY | 2022-04-22 14:09 | XMS_ITS | Encounter Summary ---
:1945 Author Organization [facility] Address [address] [place] [address] Care Team Providers Name Role Phone Soila Faustin Primary Care Provider Reason for Visit Reason Comments Follow-up Encounter Details Date Type Department Care Team Description 06/13/2021 Office Visit [facility] - Hardeep Bella, Liz imprema malignant neoplasm of lung, unspecified laterality (HCC-CMS) (Primary Dx); [facility] Adult Hematology MD Liver metastases (HCC-CMS) & Oncology 130 [facility], [address] [place] MOB-B [address] [place] [address] [place], [place] [phone] Social History Tobacco Use Types Packs/Day [...] Diagnosis ??? Malignant neoplasm of female breast ([facility]) 1997: Stage 1 Left ductal breast cancer - T1a,N0,M0,G1 - ER+/[place]-. 0/12 node involvement. - Completed 5 years tamoxifen. ??? Primary malignant neoplasm of lung ([facility]) Problem 28 March 2018: Right non-small [...] appointment with me. Hardeep Bella MD Hematology/Oncology [facility] Cc:Orin Schreiber APRN, Dr. Soila [...] daily. added in this encounter Care Teams Plant Operator/Shift Supervisor Relationship Specialty Start Date End Date Soila Faustin PCP - General Internal Medicine - Primary 02/06/20 [address] [place] [address] documented as of this encounter
--- OUTSIDE RECORDS SUMMARY | 2022-04-22 14:09 | XMS_ITS | Encounter Summary ---
:[address] [facility] Address [address] [place] [address] Care Team Providers Name Role Phone RaminSoila Primary Care Provider Reason for Visit (Routine/Next Available) - Receiving Office to Obtain Authorization Specialty Diagnoses / Procedures Referred By Contact Refer red To Contact Procedures Unknown, Provider, CT OUTSIDE IMAGES BODY Phone: Referral ID Status Reason Start Expiration Visits Visits Date Date Requested Authorized [id number] Receiving Office 1 to Obtain 1 Authorization Encounter Details Date Type Department Care Team Description 08/08/2021 Hospital Encounter [facility] Secondary Reads [place] Social History Tobacco [...] on filedocumented in this encounter Care Teams Composition Roll Maker And Cutter Relationship Specialty Start Date End Date Soila Faustin PCP - General Internal Medicine - Primary 02/06/20 4 [place] [address] documented as of this encounter
--- OUTSIDE RECORDS SUMMARY | 2022-04-22 14:09 | XMS_ITS | Encounter Summary ---
:1945 [place] [address] Care Team Providers Name Role Phone Unavailable Primary Care Provider Unavailable Encounter Details Date Type Department Care Team Description 04/06/2018 Ancillary Procedure Radiology Library at Kelley Faustin [facility] [place] [place] [address] [address] [place] [address] [phone] Social History Tobacco Use Types Packs/Day Years Used Date Never Assessed Sex Assigned at Date Recorded Not on file documented as of this encounter Plan of Treatment Upcoming Encounters Date Type Specialty Care Team Description 04/28/2022 Office Visit Hematology and Oncology ForOrin love APRN [facility] HEMATOLOGY AND O NCOLOGY [place], [place] [address] (Wo rk) 04/28/2022 Infusion Hematology [...] / Laterality Volume Narrative ESME - 09/24/2021 10:01 AM EST This exam is auto-finalizing. It's purpo se is for storage only. Soila Faustin MD G FILM LIBRARY ORDERABLES Performing Organization Address City/State/ZIP Code Phon e Number RAD [place], [place] documented in this encounter Visit Diagnoses Not on filedocumented in this encounter
--- OUTSIDE RECORDS SUMMARY | 2022-04-22 14:09 | XMS_ITS | Encounter Summary ---
:1945 Author Organization [facility] [place] [address] [place] [address] Care Team Providers Name Role Phone Unavailable Primary Care Provider Unavailable Encounter Details Date Type Department Care Team Description 11/13/2020 Ancillary Procedure Radiology Library at Kelley Faustin [facility] [address] [address] [place] [address] [phone] Social History Tobacco Use Types Packs/Day Years Used Date Never Assessed Sex Assigned at Date Recorded Not on file documented as of this encounter Plan of Treatment Upcoming Encounters Date Type Specialty Care Team Description 04/28/2022 Office Visit Hematology and Oncology ForOrin love, BANDER AND CELLOPHANER HELPER MACHINE [facility] [address] HEMATOLOGY AND O NCOLOGY [place], [place] [address] (Wo rk) 04/28/2022 Infusion Hematology and Oncology documented as of this encounter Procedures Procedure Name Priority Date/Time Associated Diagnosis Comme nts FILM LIBRARY Routine 11/13/2020 12:00 AM Results for this STORAGE ONLY NM EST procedure ar e in PET/CT the results section. documented in this encounter Results Film Library- Storage Only NM Pet / CT (11/13/2020 12:00 AM EST) Specimen (Source) Anatomical Location Collection Method / Collectio n Time Received Time / Laterality Volume Narrative ESME - 10/17/2021 10:03 AM EST This exam is auto-finalizing. It's purpo se is for storage only. Soila Faustin MD G FILM LIBRARY ORDERABLES Performing Organization Address City/State/ZIP Code Phon e Number RAD [place], [place] documented in this encounter Visit Diagnoses Not on filedocumented in this encounter
--- OUTSIDE RECORDS SUMMARY | 2022-04-22 14:09 | XMS_ITS | Encounter Summary ---
:1945 [place] [address] Care Team Providers Name Role Phone Unavailable Primary Care Provider Unavailable Encounter Details Date Type Department Care Team Description 06/10/2021 Ancillary Procedure Radiology Library at Lanette Dimas [facility] [address] [facility] [place] [address] [place], [place] [phone] (Wo rk) Social History Tobacco Use Types Packs/Day Years Used Date Never Assessed Sex Assigned at Date Recorded Not on file documented as of this encounter Plan of Treatment Upcoming Encounters Date Type Specialty Care Team Description 04/28/2022 Office Visit Hematology and Oncology ForOrin love APRN [facility] HEMATOLOGY AND O NCOLOGY [place], [place] [address] (Wo rk) 04/28/2022 Infusion Hematology [...] / Laterality Volume Narrative ESME - 10/24/2021 9:04 PM EST This exam is auto-finalizing. It's purpo se is for storage only. Lanette Dimas APRN IMG FILM LIBRARY ORDERABLES Performing Organization Address City/State/ZIP Code Phon e Number RAD [place], [place] documented in this encounter Visit Diagnoses Not on filedocumented in this encounter
--- OUTSIDE RECORDS SUMMARY | 2022-04-22 14:09 | XMS_ITS | Encounter Summary ---
:1945 [place] [address] Care Team Providers Name Role Phone Unavailable Primary Care Provider Unavailable Encounter Details Date Type Department Care Team Description 04/06/2018 Ancillary Procedure Radiology Library at Kelley Faustin [facility] [address] [address] [place] [address] [phone] Social History Tobacco Use Types Packs/Day Years Used Date Never Assessed Sex Assigned at Date Recorded Not on file documented as of this encounter Plan of Treatment Upcoming Encounters Date Type Specialty Care Team Description 04/28/2022 Office Visit Hematology and Oncology ForOrin love APRN [facility] HEMATOLOGY AND O NCOLOGY [place], [place] [address] (Wo rk) 04/28/2022 Infusion Hematology [...] / Laterality Volume Narrative ESME - 09/24/2021 9:59 AM EST This exam is auto-finalizing. It's purpo se is for storage only. Soila Faustin MD G FILM LIBRARY ORDERABLES Performing Organization Address City/State/ZIP Code Phon e Number RAD [place], [place] documented in this encounter Visit Diagnoses Not on filedocumented in this encounter
--- OUTSIDE RECORDS SUMMARY | 2022-04-22 14:09 | XMS_ITS | Encounter Summary ---
:1945 Author Organization [facility] Address [address] [place] [address] Care Team Providers Name Role Phone Soila Faustin Primary Care Provider Reason for Visit Reason Onset Date Comments Other 02/21/2021 update Encounter Details Date Type Department Care Team Description 02/21/2021 Telephone [facility] Hardeep Kelley MD Other (update) Adult Hematology & O ncology 130 [facility] 130 [facility] [place] [address]2 [facility] [address] [place] [address] [place] [address] (Wo rk) Social History Tobacco Use Types Packs/Day Years Used Date Current Every Day Smoker Cigarettes 0.5 50 Smokeless Tobacco: Never Used Alcohol Use Standard Drinks/Week Comments No 0 (1 standard drink = 0.6 oz pure alcoho l) Sex Assigned at Date Recorded Not on file documented as of this encounter Miscellaneous Notes Telephone Encounter - Joann Bryan - 02/21/2021 1866 EDT Orin from [facility] called to give you an update. She saw the pt yesterday (02/20/21) and discussed resuming Keytruda. The also talked about palliatiave care and at this point she is not having treatment.Orin also spoke to pt's PCP. Orin said you can call her on her cell to discuss and she can give you better and more details. Her cell [phone]. documented in this encounter Plan of Treatment Not on filedocumented as of this encounter Visit Diagnoses Not on filedocumented in this encounter Care Teams Wrapper Stripper Relationship Specialty Start Date End Date Soila Faustin PCP - General Internal Medicine - Primary 02/06/20 [address] [place] [address] documented as of this encounter
--- OUTSIDE RECORDS SUMMARY | 2022-04-22 14:09 | XMS_ITS | Encounter Summary ---
:1945 Author Organization [facility] Address [address] [place] [address] Care Team Providers Name Role Phone Soila Faustin Primary Care Provider Reason for Visit Reason Comments Follow-up Encounter Details Date Type Department Care Team Description 04/09/[address] [facility] - Hardeep Bella Pr imary malignant [facility] Adult Hematology neoplasm of lung, & Oncology 130 [facility], unspecified laterality [address] [place] ([facility]) (Primary Dx) [address] [place] [address] [place], [place] [phone] Social History Tobacco Use Types Packs/Day [...] Left ductal breast cancer - T1a,N0,M0,G1 - ER+/NE-. 012 node involvement. - Completed 5 years [...] appointment with me. Hardeep Bella MD Hematology/Oncology [facility] Cc:Orin Schreiber APRN, Dr. [...] Pain. added in this encounter Care Teams Drapery Supervisor Relationship Specialty Start Date End Date Soila Faustin PCP - General Internal Medicine - Primary 02/06/20 [address] [place] [address] documented as of this encounter
--- OUTSIDE RECORDS SUMMARY | 2022-04-22 14:09 | XMS_ITS | Encounter Summary ---
:1945 Author Organization [facility] Address [address] [place] [address] Care Team Providers Name Role Phone Soila Faustin Primary Care Provider Reason for Visit Reason Comments Chemotherapy And Provider Visit CT Scan Encounter Details Date Type Department Care Team Description 08/13/2021 Telemedicine [facility] - Hardeep Bella Pr imary malignant neoplasm of lung, unspecified laterality (HCC-CMS) (HCC) (Primary Dx); [facility] Adult Hematology MD Liver metastases (HCC-CMS) (HCC) & Oncology 130 [facility], [address] [place] [address] [place] [address] [place], [place] [phone] Social History Tobacco Use Types Packs/Day [...] from the original note were not included. [facility] Telephone Visit Today's visit was provided via [...] Diagnosis ??? Malignant neoplasm of female breast ([facility]) 1997: Stage 1 Left ductal breast cancer - T1a,N0,M0,G1 - ER+/MA-. 0/12 node involvement. - Completed 5 years [...] me. Hardeep Bella MD Hematology/Oncology [facility] Cc:Orin Schreiber APRN, Dr. Soila Faustin [...] daily. added in this encounter Care Teams Technical Support Internship Relationship Specialty Start Date End Date Soila Faustin PCP - General Internal Medicine - Primary 02/06/20 4 [place] [address] documented as of this encounter
--- OUTSIDE RECORDS SUMMARY | 2022-04-22 14:09 | XMS_ITS | Encounter Summary ---
:1945 Author Organization [facility] Address [address] [place] [address] Care Team Providers Name Role Phone RaminSoila Primary Care Provider Reason for Visit (Routine/Next Available) - Receiving Office to Obtain Authorization Specialty Diagnoses / Procedures Referred By Contact Refer red To Contact Procedures Unknown, Provider, XR OUTSIDE IMAGES CHEST Phone: Referral ID Status Reason Start Expiration Visits Visits Date Date Requested Authorized [id number] Receiving Office 1 to Obtain 1 Authorization Encounter Details Date Type Department Care Team Description 08/07/2021 Hospital Encounter [facility] Secondary Reads [place] Social History Tobacco Use [...] on filedocumented in this encounter Care Teams Engine Repairer Relationship Specialty Start Date End Date Soila Faustin PCP - General Internal Medicine - Primary 02/06/20 4 [place] [address] documented as of this encounter
--- OUTSIDE RECORDS SUMMARY | 2022-04-22 14:09 | XMS_ITS | Encounter Summary ---
:1945 Author Organization Health system Address [address] [place] [address] Care Team Providers Name Role Phone Soila Faustin Primary Care Provider Encounter Details Date Type Department Care Team Description 01/11/2022 Lab Requisition [facility] Outr Resulting Lab, Pathology & Laboratory Provider [facility] [address] [place], [place] [address] Social History Tobacco Use Types Packs/Day Years [...] Sig nature Hep C Antibody Negative Negative [facility] Specimen Blood - Venous blood (substance) Performing Organization Address City/State/ZIP Code Phon e Number [facility] [address] [place] [address] SERVICES documented in this encounter Visit Diagnoses Not on filedocumented in this encounter Care Teams Master Deputy Sheriff Court Security Relationship Specialty Start Date End Date Soila Faustin PCP - General Internal Medicine - Primary 02/06/20 [address] [place] [address] documented as of this encounter
--- OUTSIDE RECORDS SUMMARY | 2022-04-22 14:09 | XMS_ITS | Encounter Summary ---
:1945 Author Organization [facility] Address [address] [place] [address] Care Team Providers Name Role Phone Soila Faustin Primary Care Provider Reason for Visit Reason Comments Telemedicine Phone Call Encounter Details Date Type Department Care Team Description 02/11/2021 Telemedicine [facility] - Hardeep Bella Pr imary malignant [facility] Adult Hematology neoplasm of lung, & Oncology 130 [facility], unspecified laterality [address] [place] ([facility]) (Primary Dx) [address] [place] [address] [place], [place] [phone] Social History Tobacco Use Types Packs/Day [...] verified: Yes - recently got secondary insurance [facility]. I instructed patient to bring card with her at her next appointment in the network so we could get the information scanned into EPIC Verbal consent given by patient to continue with telemedicine visit: Yes 02/11/21 15:42 Hardeep Villa MD - 02/11/2021 1630 EDT Images from the original note were not included. [facility] Telephone Visit Verbal [...] Malignant neoplasm of female breast ([facility]) 1997: Stage 1 Left ductal breast cancer - T1a,N0,M0,G1 - ER+/DE-. 0/12 node involvement. - Completed 5 years tamoxifen. ??? Primary malignant neoplasm of lung ([facility]) Problem 28 March 2018: Right non-small [...] this area. I spoke with Orin at [facility] today and discussed the above. She [...] with me. Hardeep Bella MD Hematology/Oncology [facility] Patient initiated phone contact with the [...] NEEDED added in this encounter Care Teams Optical Goods Drill Operator Relationship Specialty Start Date End Date Soila Faustin PCP - General Internal Medicine - Primary 02/06/20 [address] [place] [address] documented as of this encounter
--- OUTSIDE RECORDS SUMMARY | 2022-04-22 14:09 | XMS_ITS | Encounter Summary ---
:1945 Author Organization [facility] [place] [address] [place] [address] Care Team Providers Name Role Phone Unavailable Primary Care Provider Unavailable Encounter Details Date Type Department Care Team Description 02/05/2021 Ancillary Procedure Radiology Library at Kelley Faustin [facility] [address] [address] [place] [address] [phone] Social History Tobacco Use Types Packs/Day Years Used Date Never Assessed Sex Assigned at Date Recorded Not on file documented as of this encounter Plan of Treatment Upcoming Encounters Date Type Specialty Care Team Description 04/28/2022 Office Visit Hematology and Oncology ForOrin love, BUS PERSON [facility] DR HEMATOLOGY AND O NCOLOGY [place], [place] [address] (Wo rk) 04/28/2022 Infusion Hematology [...] Address City/State/ZIP Code Phon e Number RAD [place], [place] documented in this encounter Visit Diagnoses Not on filedocumented in this encounter
--- OUTSIDE RECORDS SUMMARY | 2022-04-22 14:09 | XMS_ITS | Encounter Summary ---
:1945 Author Organization [facility] Address [address] [place] [address] Care Team Providers Name Role Phone Soila Faustin Primary Care Provider Reason for Visit Reason Onset Date Comments Other 02/26/2021 treatments Encounter Details Date Type Department Care Team Description 02/26/2021 Telephone [facility] Hradeep Kelley MD Other (treatments) Adult Hematology & 130 [facility], Oncology [place] [address] [facility] [address] [place] [address] [place], [place] [phone] (Wo rk) Social History Tobacco Use [...] on filedocumented in this encounter Care Teams Digital Cartographer Relationship Specialty Start Date End Date Soila Faustin PCP - General Internal Medicine - Primary 02/06/20 4 [address] [facility] [place] [address] documented as of this encounter
--- OUTSIDE RECORDS SUMMARY | 2022-04-22 14:10 | XMS_ITS | Encounter Summary ---
:[address] [facility] Address [address] [place] [address] Care Team Providers Name Role Phone Unavailable Primary Care Provider Unavailable Encounter Details Date Type Department Care Team Description 06/26/2018 Results Only [facility] Unknown, Provider, (Wo rk) [...] EDT) Creatinine, i-STAT 0.8 0.6 - 1.3 [facility] mg/dl LABORATORY body shop manager ID [id number]: [facility] Test performed by LABORATORY Radiology SERVICES Imaging. Specimen Blood Performing Organization Address City/State/ZIP Code Phon e Number [facility] [address] [place] [address] SERVICES documented in this encounter Visit Diagnoses Not on filedocumented in this encounter
--- OUTSIDE RECORDS SUMMARY | 2022-04-22 14:10 | XMS_ITS | Encounter Summary ---
:1945 Author Organization [facility] Address [address] [place] [address] Care Team Providers Name Role Phone Unavailable Primary Care Provider Unavailable Encounter Details Date Type Department Care Team Description 06/26/2018 Results Only Imaging [facility]- Sundeep Mendez MD [phone] 7[address] [facility] [address] [place] [address] (Wo rk) Social History Tobacco [...] Anatomical Region Laterality Modality Other Specimen Narrative [facility] RAD[facility] - 06/26/2018 14:22 EDT [...] [facility] documented in this encounter Visit Diagnoses Not on filedocumented in this encounter
--- OUTSIDE RECORDS SUMMARY | 2022-04-22 14:10 | XMS_ITS | Encounter Summary ---
:[address] [facility] Address [address] [place] [address] Care Team Providers Name Role Phone Jerry Jauregui MD Primary Care Provider Rene Walker MD Primary Care Provider Unavailable Soila Faustin Primary Care Provider Encounter Details Date Type Department Care Team Description 07/23/2007 Before [facility] - Felicitas Jauregui MD Converted Visit Maple conversion [address] (Maple) 111 [facility] YESY [address] [place] [id number] [place] [phone] Social History Tobacco Use Types Packs/Day Years [...] 16 EDT X *CARDIAC ULTRASOUND LABORATORY* [address] [place], [place] [address] Interpreting Group: [facility] [address] [place] [address] Height: ? 64 in ( 163 cm ) S/D Pressure: Patient status: Outpatient Weight: ? 191 lb ( 86.82 kg ) BSA: ?1.92 m^2 Referring MD: ??Jerry Jauregui MD Tow Bar Driver: ?? Yohana Dueñas Ordering MD: ?? [...] was interpreted by [facility]. The procedure was started at [...] - 03/19/2009 X *CARDIAC ULTRASOUND LABORATORY* [address] [place] [address] Interpreting Group: [facility] [place] [address] Height: 64 in ( 163 cm ) S/D Pressure: Patient status: Outpatient Weight: 191 lb ( 86.82 kg ) BSA: 1.92 m^2 Referring MD: Jerry Jauregui MD Tow Bar Driver: Yohana Dhillon MD: Jerry Jauregui MD [...] was interpreted by [facility]. The procedure was started at [...] Address City/State/ZIP Code Phon e Number [facility] 111 [facility] [place] [address] [facility] [address] [place], [place] [address] documented in this encounter Visit Diagnoses Not on filedocumented in this encounter Care Teams Washing Tub Operator Relationship Specialty Start Date End Date Jerry Jauregui MD PCP - General 02/20/13 11/21/[address] [place] [address] Rene Walker MD PCP - General 11/22/1303/31/18 Soila Faustin PCP - General Internal Medicine - 02/06/[address] [facility] [place] [place] [address] documented as of this encounter
--- OUTSIDE RECORDS SUMMARY | 2022-04-22 14:10 | XMS_ITS | Encounter Summary ---
:1945 Author Organization [facility] Address [address] [place] [address] Care Team Providers Name Role Phone Unavailable Primary Care Provider Unavailable Encounter Details Date Type Department Care Team Description 04/27/2007 Results Only [facility] - Deric Rosa, thompson MD 111 [facility] [address] [place] [address] [address] [place] [address] (Wo rk) Social History Tobacco [...] Organization Address City/State/ZIP Code Phon e Number [facility] [address] [place] [address] SERVICES [facility] [address] [place] [address] (ABNORMAL) IRON (04/27/2007 15:30 EDT) Pathologist Sig nature Iron 29 (L) 60 - 180 ug/dl [facility] Specimen Performing Organization Address City/State/ZIP Code Phon e Number [facility] [address] [place] [address] SERVICES [facility] [address] [place] [address] FERRITIN (04/27/2007 15:30 EDT) Pathologist Sig nature Ferritin 67 10 - 291 ng/mL [facility] Specimen Performing Organization Address City/[facility]/ZIP Code Phon e Number [facility] [address] [place] [address] SERVICES [facility] [address] [place] [address] documented in this encounter Visit Diagnoses Not on filedocumented in this encounter
--- OUTSIDE RECORDS SUMMARY | 2022-04-22 14:10 | XMS_ITS | Encounter Summary ---
:1945 Author Organization [facility] Address [address] [place] [address] Care Team Providers Name Role Phone Soila Faustin Primary Care Provider Encounter Details Date Type Department Care Team Description 01/16/2020 Lab Requisition [facility] Clyde Hamm do, MD Encounter for observation for suspected exposure to other biological agents ruled out; Pathology & 528 [facility] Cough; Laboratory Medicine [place], [place] Fever , unspecified - [facility] [phone] [address] [facility] [place] [address] Social History Tobacco Use Types [...] unspecified documented in this encounter Care Teams Roadway Designer Relationship Specialty Start Date End Date Soila Faustin PCP - General Internal Medicine - Primary 02/06/20 [address] [place], [place] [id number] documented as of this encounter
--- OUTSIDE RECORDS SUMMARY | 2022-04-22 14:10 | XMS_ITS | Encounter Summary ---
:1945 Author Organization [facility] Address [address] [place] [address] Care Team Providers Name Role Phone Soila [...] on filedocumented in this encounter Care Teams Baby Counselor Relationship Specialty Start Date End Date Soila Faustin PCP - General Internal Medicine - Primary 02/06/20 [address] [place], [place] [address] documented as of this encounter
--- OUTSIDE RECORDS SUMMARY | 2022-04-22 14:10 | XMS_ITS | Encounter Summary ---
:1945 Author Organization [facility] Address [address] [place] [address] Care Team Providers Name Role Phone Soila Faustin Primary Care Provider Reason for Visit Reason Onset Date Comments Nausea 06/14/2020 Encounter Details Date Type Department Care Team Description 06/14/2020 Telephone [facility] Hardeep Kelley MD Nausea Adult Hematology & O ncology 130 [facility] [address] [facility] [address] [place], [place] [address] [place] [phone] (Wo rk) Social History Tobacco Use Types Packs/Day Years Used Date Current Every Day Smoker Cigarettes 0.5 50 Smokeless Tobacco: Never Used Alcohol Use Standard Drinks/Week Comments No 0 (1 standard drink = 0.6 oz pure alcoho l) Sex Assigned at Date Recorded Not on file documented as of this encounter Miscellaneous Notes Telephone Encounter - Ishaan Zhao RN - 06/14/2020 7249 EDT Bette, nurse from [facility] called to report Madelin is complaining of [...] Continue antiemetics. 06/14/20 13:21 Called Orin Schreiber, JOINER @ [facility], left a detailed [...] on filedocumented in this encounter Care Teams Mask Layout Designer Relationship Specialty Start Date End Date Soila Faustin PCP - General Internal Medicine - Primary 02/06/20 [address] [place] [address] documented as of this encounter
--- OUTSIDE RECORDS SUMMARY | 2022-04-22 14:10 | XMS_ITS | Encounter Summary ---
:1945 Author Organization [facility] Address [address] [place] [address] Care Team Providers Name Role Phone Soila Faustin Primary Care Provider Reason for Visit Reason Onset Date Comments Other 11/19/2020 appointment Encounter Details Date Type Department Care Team Description 11/19/2020 Telephone [facility] - Hardeep Bella MD Other (appointment) [facility] Adult Hematology & 130 [facility], Oncology MOB-[address] [facility] [address] [place] [address] [place] [phone] (Wo rk) Social History Tobacco Use [...] on filedocumented in this encounter Care Teams Software Technical Lead Relationship Specialty Start Date End Date Soila Faustin PCP - General Internal Medicine - Primary 02/06/20 [address] [place] [address] documented as of this encounter
--- OUTSIDE RECORDS SUMMARY | 2022-04-22 14:10 | XMS_ITS | Encounter Summary ---
:1945 Author Organization [facility] Address [address] [place] [address] Care Team Providers Name Role Phone Rene Walker MD Primary Care Provider Unavailable Encounter Details Date Type Department Care Team Description 03/26/2018 Hospital Encounter [facility]- Darvin Mendez [facility] MD Margarito 790 [facility] [address] [place] [address] [address] [place] [phone] (Wo rk) Social History Tobacco Use Types Packs/Day Years Used Date Current Every Day Smoker Cigarettes 0.5 50 Alcohol Use Standard Drinks/Week Comments Not Asked 0 (1 standard drink = 0.6 oz pure alcoho l) Sex Assigned at Date Recorded Not on file documented as of this encounter Discharge Diagnoses Diagnosis C50.412 Malignant neoplasm of upper-oute r quadrant of left female breast-C50.412[ICD-10-CM] documented in this encounter Medications at Time [...] on filedocumented in this encounter Care Teams Forestry Professor Relationship Specialty Start Date End Date Rene Walker MD PCP - General 11/22/1303/31/18 documented as of this encounter
--- OUTSIDE RECORDS SUMMARY | 2022-04-22 14:10 | XMS_ITS | Encounter Summary ---
:[address] [facility] Address [address] [place] [address] Care Team Providers Name Role Phone Soila Faustin Primary Care Provider Encounter Details Date Type Department Care Team Description 09/05/2019 Lab Requisition [facility] Unknown, Provider, Pathology & Laboratory [facility] [address] [place] [address] [place] [address] Social History Tobacco Use Types Packs/Day Years [...] 8:30 EST) Folate >24.0 See Note ng/mL [facility] Comment: LABORATORY SERVICES Reference Ranges for Folate: Deficient: ?< 3.4 ng/mL Indeterminate: ??3.4 - 5.4 ng/mL Normal: ? > 5.4 ng/mL The results of this assay ca n be falsely elevated due to the consumption of Biotin. Specimen Blood - Venous blood (substance) Performing Organization Address City/State/ZIP Code Phon e Number [facility] [address] [place] [address] SERVICES documented in this encounter Visit Diagnoses Not on filedocumented in this encounter Care Teams Taping Foreman Relationship Specialty Start Date End Date Soila Faustin PCP - General Internal Medicine - Primary 02/06/20 [address] [place] [address] documented as of this encounter
--- OUTSIDE RECORDS SUMMARY | 2022-04-22 14:10 | XMS_ITS | Encounter Summary ---
:1945 Author Organization [facility] Address [address] [place] [address] Care Team Providers Name Role Phone Unavailable Primary Care Provider Unavailable Encounter Details Date Type Department Care Team Description 04/06/2018 Hospital Encounter [facility] Javier Armijo rt, Cardiovascular Unit MD 111 [facility] [address] [place] [address] [address] [phone] [place] [phone] (Wo rk) Social History Tobacco [...] for 5 days. When to Contact the [facility] (call [phone] for severe symptoms): 1. Increased shortness of [...] of the symptoms above, please call the [facility] Interventional Radiology clinic at , [...] Progress Notes Michelle Pacheco, RN - 04/06/2018 7590 EDT At 1419 pt admitted to CVU [...] in room prior to start of procedure ([facility]/RRW/). Conscious sedation started at 1320. Pt [...] stretcher independently. Patient greeted and identified per [facility] policy. Allergies and procedure verified & [...] -Due to sedation patient must have a driver's license reviewing officer (bus or taxi is not allowed) - [...] documented in this encounter Procedure Notes Javier rAmijo MD - 04/06/2018 1421 EDT IR Procedure Note Procedure: CT guided LLL lung biopsy Date Performed: 04/06/2018 Radiologist/Social Media Project Manager(s): Leah Sedation/Anesthesia: Moderate Time Out: A time-out [...] (04/08/2018 0:00 EDT) Reporting Status Sample quantity [facility] insufficient for LABORATORY testing.Comment: SERVICES Cancelled by Pathologist Specimen Other Performing Organization Address City/State/ZIP Code Phon e Number [facility] LABORATORY [address] [place] [address] SERVICES GPST SEQUENCING (04/08/2018 0:00 EDT) Sequencing Status Sample [facility] insufficient for LABORATORY testing.Comment: SERVICES Cancelled by Pathologist Specimen Other Performing Organization Address City/[facility]/ZIP Code Phon e Number [facility] LABORATORY [address] [place] [address] SERVICES GPST HYBRIDIZATION (04/08/2018 0:00 EDT) Hybridization Status Sample [facility] insufficient for CENTER LABORATORY testing.Comment: SERVICES Cancelled by Pathologist Specimen Other Performing Organization Address City/State/ZIP Code Phon e Number [facility] LABORATORY [address] [place] [address] SERVICES GPST AMPLIFICATION (04/08/2018 0:00 EDT) Amplification Status Sample quantity [facility] insufficient for CENTER LABORATORY testing.Comment: SERVICES Cancelled by Pathologist Specimen Other Performing Organization Address City/State/ZIP Code Phon e Number [facility] LABOR[facility]ORY [address] [place] [address] SERVICES GPST PRE AMPLIFICATION (04/08/2018 0:00 EDT) Pre Amplification Sample quantity [facility] insufficient for CENTER LABORATORY testing.Comment: SERVICES Cancelled by Pathologist Specimen Other Performing Organization Address City/[facility]/ZIP Code Phon e Number [facility] LABOR[facility]ORY [address] [place] [address] SERVICES GPST EXTRACTION (04/08/2018 0:00 EDT) Extraction Status Sample [facility] insufficient for LABORATORY testing.Comment: SERVICES Cancelled by Pathologist Specimen Other Performing Organization Address City/State/ZIP Code Phon e Number [facility]ORY [address] [place] [address] SERVICES CHEST PA (04/06/2018 16:06 EDT) Anatomical Region Laterality Modality Other Specimen Narrative [facility] - 04/06/2018 16:26 EDT CHEST 1 VIEW [...] Organization Address City/State/ZIP Code Phon e Number [facility] SURGICAL PATHOLOGY (04/06/2018 15:24 EDT) Pathology SURGICAL PATHOLOGY REPORT [facility] MEDICAL Report: CENTER Reports generated via electronic interface contain lulu ginal data; LABORATORY however they are lacking the format of the original re port. SERVICES Caution should be taken when reading/interpreting unfo rmatted reports. Name: ? IWONA ALVARADO PERFECTO Mary ? Accession #: ? [id number] ? : ? 1945 (Age: 72) ??F ?Collect Date: ? 04/06/2018 ? Location: ? [facility] ? Receive Date: ? 04/06/20 18 ? Provider: JAVIER ARMIJO MD Copy to: FELIZ BOWENS MD ? Final Pathologic Diagnosis: LUNG, LEFT, LOWER LOBE, NEEDLE CORE BIOPSY: - Markedly atypical epithelial cells consistent with a denocarcinoma, lung primary. See comment. Comment: Baggageman slides from the prior hayden g adenocarcinoma ([id number]) and breast adenocarcinoma ([id number]) were reviewed in correlation with the current material. Immunoperoxidase stains were performed on this case to further characterize the lesion, and the immunoreactivity profile supports the diagnosis IMMUNOHISTOCHEMISTRY:. ANTIBODY(CLONE)(BLOCK):RESULT TTF-1 (8G7G3/1, Reubens) (1): Positive GATA3 (L50-823, Reubens) (1): Negative P40 (BC28, Reubens) (1): Negative NOTE: ??One or more of [...] characteristics have been de termined by [facility] and/or by the referring labo [...] entirely in 1 and 2. JORGE Hernandez ([facility]) 04/06/2018 3:43 PM ? PD-L1 IMMUNOHISTOCHEMICAL ASSAY ? Date Ordered: ? 04/12/2018 ? Status: ?? Signed Out ?Date Complete: ? 04/14/2018 ? By: ??Don Tse ? Date Reported: ? 04/14/2018 ? Interpretation PD-L1 Tumor Proportion Score (TPS): ??91-100% Description Tissue submitted: Paraffin e mbedded tissue blocks labelled [id number] (#1 and #2) from [facility] as par t of the [...] appropriate conditions and tissue controls using the TwinStratae ction System on the [employer] BenchMark Ultra. The specimen submitted for testing [...] characteristics have been de termined by [facility] and/or by the referring labo [...] Address City/State/ZIP Code Phon e Number [facility] LABORATORY [address] [place] [address] SERVICES PLT (04/06/2018 12:00 EDT) Pathologist Sig nature PLT 275 141 - 377 K/cmm [facility] LABORA TORY SERVICES Specimen Blood specimen (specimen) - Blood Performing Organization Address City/State/ZIP Code Phon e Number [facility] LABORATORY [address] [place] [address] SERVICES PROTIME (04/06/2018 12:00 EDT) Pro Time 11.2 10.3 - 13.4 [facility] secs LABORATORY SERVICES I.N.R. 1.0 0.9 - 1.1 [facility] Comment: Ratio LABORATORY SERVICES Moderate Intensity Coumadin INR = 2.0-3.0 Adjustments in anticoagulant therapy dose should be based upon the INR and NOT the Pro Time. Specimen Blood specimen (specimen) - Blood Performing Organization Address City/State/ZIP Code Phon e Number [facility] LABORATORY [address] [place] [address] SERVICES CYTOPATHOLOGY (04/06/2018 0:00 EDT) Pathology CYTOPATHOLOGY REPORT [facility] MEDICAL Report: CENTER Reports generated via electronic interface contain lulu ginal data; LABORATORY however they are lacking the format of the original re port. SERVICES Caution should be taken when reading/interpreting unfo rmatted reports. Name: ? GIANNA ALVARADO ? Accession #: ? [id number] : ? 1945 (Age: 72) ??F ?Collect [...] ??Please see also the concurrent core biopsy ([id number]) upon which diagnost ic immunohistochemical stains are performed. The cell block demonstrates only rare malignant cells. Deeper levels of the cell block have bee n examined. The prior right lower lobe lung resection ([id number]) as well as the prior left br east core biopsy ([id number]) have been reviewed. The advanced lung barbara col reflex testing has been ordered. ??This case wa s shown at intradepartmental consultation conference on 04/07/2018. (Dr. Gibbons)/lidna Document reviewed and electronically signed by: ? [...] Address City/State/ZIP Code Phon e Number [facility] LABORATORY [address] [place] [address] SERVICES documented in this encounter Visit Diagnoses [...]
--- OUTSIDE RECORDS SUMMARY | 2022-04-22 14:10 | XMS_ITS | Encounter Summary ---
:1945 Author Organization [facility] Address [address] [place] [address] Care Team Providers Name Role Phone Rene Walker MD Primary Care Provider Unavailable Encounter Details Date Type Department Care Team Description 03/17/[address] [facility]- Unknown, PRISM ProviderMD [phone] Social History Tobacco Use Types Packs/Day Years [...] on filedocumented in this encounter Care Teams Clinical Data Management Manager Relationship Specialty Start Date End Date Rene Walker MD PCP - General 11/22/1303/31/18 documented as of this encounter
--- OUTSIDE RECORDS SUMMARY | 2022-04-22 14:10 | XMS_ITS | Encounter Summary ---
:1945 Author Organization [facility] Address [address] [place] [address] Care Team Providers Name Role Phone Soila Faustin Primary Care Provider Reason for Visit Reason Onset Date Comments Medications Refill 11/06/2020 Encounter Details Date Type Department Care Team Description 11/06/2020 Telephone [facility] Hardeep Kelley MD Medications Refill Adult Hematology & 130 [facility], Oncology MOB-B [address] [facility] 1-[address] [place] [address] [place], [place] [phone] (Wo rk) Social History Tobacco Use Types Packs/Day Years Used Date Current Every Day Smoker Cigarettes 0.5 50 Smokeless Tobacco: Never Used Alcohol Use Standard Drinks/Week Comments No 0 (1 standard drink = 0.6 oz pure alcoho l) Sex Assigned at Date Recorded Not on file documented as of this encounter Miscellaneous Notes Telephone Encounter - Ishaan Zhao RN - 11/06/2020 1402 EST Images from the original note were not included. Morphine Sulfate 30mg ER, 1 tab BID - Last refilled Morphine 15mg ER, 1 tab once daily (am) 11/06/20 14:06 VPMS checked Morphine has been filled by Soila Faustin (PCP) 11/06/20 14:10 Returned call to [facility], No vm set up. ESH - Last seen by Dr. Bella 08/16/20 during [facility] downtime, no documentation in ov note that [...] call back. 11/07/20 11:44 Returned call to [facility], she states the nurse advised that she [...] take Morphine 60mg tabs. Med list updated. [facility] Haredep Bella MD You 43 minutes ago (12:54) [...] documented as of this encounter Care Teams Scrape Gatherer Relationship Specialty Start Date End Date Soila Faustin PCP - General Internal Medicine - Primary 02/06/20 [address] [place] [address] documented as of this encounter
--- OUTSIDE RECORDS SUMMARY | 2022-04-22 14:10 | XMS_ITS | Encounter Summary ---
:1945 Author Organization [facility] Address [address] [place] [address] Care Team Providers Name Role Phone Unavailable Primary Care Provider Unavailable Encounter Details Date Type Department Care Team Description 01/02/2009 Before PRISM [facility] - Darvin Mendez Converted Visit Maple thompson Pimentel MD (Maple) [address] [address] [address] [place] [address] (Wo rk) Social History Tobacco [...] Organization Address City/State/ZIP Code Phon e Number [facility] [address] [place] [address] SERVICES [facility] [address] [place] [address] documented in this encounter Visit Diagnoses Not on filedocumented in this encounter
--- OUTSIDE RECORDS SUMMARY | 2022-04-22 14:10 | XMS_ITS | Encounter Summary ---
:[address] [facility] Address [address] [place] [address] Care Team Providers Name Role Phone Unavailable Primary Care Provider Unavailable Encounter Details Date Type Department Care Team Description 10/21/2006 Hospital Encounter [facility] MD Raghav 111 [facility] [address] [place], [place] [address] [place] [address] [place] [address], [address] [place] [phone] (Wo rk) Social History Tobacco Use Types [...] e Number [facility] [address] [facility] [address] [facility] [address] [place], [place] [address] CREATININE (10/21/2006 10:35 EST) Pathologist Sig nature Creatinine 0.98 0.7 - 1.5 mg/dl [facility] GFR, Calculated >60 ml/min/1.73m2 [facility] Specimen Performing Organization Address City/State/ZIP Code Phon e Number [facility] [address] [place] [address] SERVICES [facility] [address] [place] [address] (ABNORMAL) HEMAGRAM (10/21/2006 10:35 EST) Pathologist Sig [...] [facility] [address] [place] [address] SERVICES [facility] [address] [place] [address] BUN (10/21/2006 10:35 EST) Pathologist Sig nature BUN 17 10 - 26 mg/dl [facility] Specimen Performing Organization Address City/State/ZIP Code Phon e Number [facility] [address] [place] [address] SERVICES [facility] [address] [place] [address] documented in this encounter Visit Diagnoses Not on filedocumented in this encounter
--- OUTSIDE RECORDS SUMMARY | 2022-04-22 14:10 | XMS_ITS | Encounter Summary ---
:1945 Author Organization [facility] Address [address] [place] [address] Care Team Providers Name Role Phone Soila Faustin Primary Care Provider Encounter Details Date Type Department Care Team Description 01/18/2020 Lab Requisition [facility] Clyde Hamm do, MD Encounter for other Pathology & [address] [facility] general examination Laboratory Medicine [facility] [phone] [place] [address] [place] [address] Social History Tobacco Use Types Packs/Day Years Used Date Current Every Day Smoker Cigarettes 0.5 50 Smokeless Tobacco: Never Used Alcohol Use Standard Drinks/Week Comments No 0 (1 standard drink = 0.6 oz pure alcoho l) Sex Assigned at Date Recorded Not on file documented as of this encounter Discharge Disposition Disposition Code Departure Means Destination Home or Self Correction documented in this encounter Plan of Treatment [...] Organization Address City/State/ZIP Code Phon e Number [facility] [address] [place] [address] SERVICES COVID-19 TESTING (01/16/2020 22:03 EDT) COVID-19 rt-PCR Negative Negative [facility] Result Comment: CENTER LABORATORY Negative [...] the FDA is pending. Performed on the [employer] 7500 Fast Performing Lab [facility] Hospital Lab [facility] SERVICES Specimen Swab - Entire nasopharynx (body structur e) Performing Organization Address City/State/ZIP Code Phon e Number [facility] [address] [place] [address] SERVICES documented in this encounter Visit Diagnoses Diagnosis Encounter for other general examination documented in this encounter Care Teams Transitions Rn Care Coordinator Relationship Specialty Start Date End Date Soila Faustin PCP - General Internal Medicine - Primary 02/06/20 [address] [place] [address] documented as of this encounter
--- OUTSIDE RECORDS SUMMARY | 2022-04-22 14:10 | XMS_ITS | Encounter Summary ---
:1945 Author Organization [facility] Address [address] [place] [address] Care Team Providers Name Role Phone Soila Faustin Primary Care Provider Reason for Visit Reason Onset Date Comments Other 01/29/2021 appt type question Encounter Details Date Type Department Care Team Description 01/29/2021 Telephone [facility] - Hardeep Bella Ot her (appt type [facility] Adult Hematology & MD question) Oncology 130 [facility], [address] [place] [address]., [facility] 1-[address] [place] [address] [address] [place] [address] Social History Tobacco Use Types [...] Encounter - Maura Dorantes RN - 01/29/2021 0999 EDT JAY - Please change appt. To [...] on filedocumented in this encounter Care Teams K 9 Police Officer Relationship Specialty Start Date End Date Soila Faustin PCP - General Internal Medicine - Primary 02/06/20 [address] [place] [address] documented as of this encounter
--- OUTSIDE RECORDS SUMMARY | 2022-04-22 14:10 | XMS_ITS | Encounter Summary ---
:1945 Author Organization [facility] Address [address] [place] [address] Care Team Providers Name Role Phone Soila Faustin Primary Care Provider Reason for Visit Reason Comments Follow-up CT Scan Encounter Details Date Type Department Care Team Description 11/29/2020 Telemedicine [facility] - Hardeep Bella Pr imary malignant [facility] Adult Hematology MD neoplasm of lung, & Oncology 130 [facility], unspecified laterality [address] [place] MOB-B ([facility]) (Primary Dx) [address] [place] [address] [place] [phone] Social History Tobacco Use Types Packs/Day [...] from the original note were not included. [facility] Telephone Visit Verbal consent: The concept of [...] neoplasm of female breast ([facility]) 1997: Stage 1 Left ductal breast cancer - T1a,N0,M0,G1 - ER+/HI-. 012 node involvement. - Completed 5 years [...] CT scans prior. Hardeep Bella MD Hematology/Oncology [facility] Patient initiated phone contact with the [...] capsule added in this encounter Care Teams Manager Non Profit Relationship Specialty Start Date End Date Soila Faustin PCP - General Internal Medicine - Primary 02/06/20 [address] [place] [address] documented as of this encounter
--- OUTSIDE RECORDS SUMMARY | 2022-04-22 14:10 | XMS_ITS | Encounter Summary ---
:1945 Author Organization [facility] Address [address] [place] [address] Care Team Providers Name Role Phone Unavailable Primary Care Provider Unavailable Encounter Details Date Type Department Care Team Description 01/02/2009 Hospital Encounter [facility] - Deric Mendez MD 111 [facility] [address] [place] [address] [address] [place] [phone] (Wo rk) Social History Tobacco Use Types [...]
--- OUTSIDE RECORDS SUMMARY | 2022-04-22 14:10 | XMS_ITS | Encounter Summary ---
:[address] [facility] Address [address] [place] [address] Care Team Providers Name Role Phone Soila Faustin Primary Care Provider Reason for Visit Reason Comments Follow-up CT Scan Encounter Details Date Type Department Care Team Description 02/07/2020 Office Visit [facility] - Hardeep Bella Pr imary malignant [facility] [place]ology neoplasm of lung, & Oncology [address], unspecified laterality [address] [place] MOB-B ([facility]) (Primary Dx) [address] [place] [address] [place] [phone] Social History Tobacco Use Types Packs/Day [...] Diagnosis ??? Malignant neoplasm of female breast ([facility]) 1997: Stage 1 Left ductal breast [...] at [facility]. Reviewed CT images and discussed findings [...] 1. Proceed with maintenance bevacizumab 15 mg/kg [id number] at [facility]. 2. Continue to monitor proteinuria. 3. Return for follow-up in [address] scans prior. Other Orders Placed This Visit Procedures ??? CT ABDOMEN PELVIS W CONTRAST ??? CT CHEST W CONTRAST Hardeep Bella MD Hematology/Oncology [facility] Cc:Orin Schreiber APRN, Dr. [...] documented as of this encounter Care Teams Kitchen Mechanic Relationship Specialty Start Date End Date Soila Faustin PCP - General Internal Medicine - Primary 02/06/20 [address] [place] [address] documented as of this encounter
--- OUTSIDE RECORDS SUMMARY | 2022-04-22 14:10 | XMS_ITS | Encounter Summary ---
:1945 Author Organization [facility] Address [address] [place] [address] Care Team Providers Name Role Phone Soila Faustin Primary Care Provider Reason for Visit Reason Comments Follow-up CT Scan Encounter Details Date Type Department Care Team Description 08/16/2020 Office Visit [facility] - Hardeep Bella, Pr imary malignant [facility] [place] Hematology neoplasm of lung, & Oncology 130 [facility], unspecified laterality [address], [place] MOB-B ([facility]) (Primary Dx) [address] [place] [address] [place] [phone] Social History Tobacco Use Types Packs/Day [...] For patients, please refer to guidance in Buddy[employer] on how to locate information. Generally this information will appear as a scanned documents saved in My Documents activity. documented in this encounter Plan of Treatment Not on filedocumented as of this encounter Visit Diagnoses Diagnosis Primary malignant neoplasm of lung, unsp ecified laterality (HCC-CMS) (HCC) - Primary documented in this encounter Care Teams Merchandise Presentation Manager Relationship Specialty Start Date End Date Soila Faustin PCP - General Internal Medicine - Primary 02/06/20 [address] [place] [address] documented as of this encounter
--- OUTSIDE RECORDS SUMMARY | 2022-04-22 14:10 | XMS_ITS | Encounter Summary ---
:1945 Author Organization [facility] Address [address] [place] [address] Care Team Providers Name Role Phone Unavailable Primary Care Provider Unavailable Reason for Visit Reason Onset Date Comments Fever 04/04/2018 Encounter Details Date Type Department Care Team Description 04/04/2018 Telephone [facility] Radiology Christina Perez MD [facility] [place] [facility] [address] [facility] 111 [facility] [address] [place] [address] BECCA MCDONOUGH [phone] Social History Tobacco Use Types Packs/Day Years Used Date Current Every Day Smoker Cigarettes 0.5 50 Alcohol Use Standard Drinks/Week Comments Not Asked 0 (1 standard drink = 0.6 oz pure alcoho l) Sex Assigned at Date Recorded Not on file documented as of this encounter Miscellaneous Notes Telephone Encounter - Christina Degroot MD - 04/04/[address] Degroot spoke with Ms. Arguelles [...]
--- OUTSIDE RECORDS SUMMARY | 2022-04-22 14:10 | XMS_ITS | Encounter Summary ---
:1945 Author Organization [facility] Address [address] [place] [address] Care Team Providers Name Role Phone Unavailable Primary Care Provider Unavailable Reason for Referral Radiology Services (Routine) - Specialty Report Received Specialty Diagnoses / Procedures Referred By Contact Refer red To Contact Diagnoses Primary malignant neoplasm of lung, unspecified laterality (HCC-CMS) (HCC) Hardeep Bella MD [facility] Procedures CT CHEST W CONTRAST [address] [place], [place] [address] [place] [phone] Referral ID Status Reason Start Date Expiration Date Visits V isits Requested Authorized [id number] Specialty 10/27/2019 1 1 Report Received aboratory Services (Routine) - New Request Specialty Diagnoses / Procedures Referred By Contact Refer red To Contact Diagnoses Primary malignant neoplasm of lung, unspecified laterality (HCC-CMS) (HCC) Edema, unspecified type Hardeep Bella MD Procedures PROTEIN, TOTAL, 24 HR, URINE 130 [facility] [address] [place] [address] Referral ID Status Reason Start Date Expiration Date Visits V isits Requested Authorized [id number] New Request 10/27/2019 1 1 Reason for Visit Reason Comments Follow-up Encounter Details Date Type Department Care Team Description 10/27/2019 Office Visit [facility] - Hardeep Bella, Liz imary malignant neoplasm of lung, unspecified laterality (HCC-CMS) (Primary Dx); [facility] Adult Hematology Edema, unspecified type & Oncology [address], [address] [place] MOB-B [address] [place] [address] [place], [place] [phone] Social History Tobacco Use Types Packs/Day [...] States that she was recently admitted at [facility] in July 2019 after presenting to [...] for her next treatment on Thursday at [facility] (10/31/19). Has an appointment with her [...] bevacizumab, tolerating relatively well. Receiving this at [facility]. Recent CT c/a/p showed overall stable [...] 1. Proceed with maintenance bevacizumab 15 mg/kg [id number] at [facility]. 2. Return for follow up in [...] 24 hr, Urine Hardeep Bella MD Hematology/Oncology [facility] Cc:Orin Labow, USER INTERFACE DEVELOPER Scribe attestation: By time stamping my name [...]
--- OUTSIDE RECORDS SUMMARY | 2022-04-22 14:10 | XMS_ITS | Encounter Summary ---
:1945 Author Organization [facility] Address [address] [place] [address] Care Team Providers Name Role Phone Unavailable Primary Care Provider Unavailable Reason for Visit Reason Onset Date Comments Other 01/26/2020 Covid 19 call center Encounter Details Date Type Department Care Team Description 01/26/2020 Telephone [facility] - Felisa Zapata, [facility] er (Covid 19 call [facility] [place] - RN ana glasgow) [place] [address], [place] [address] [place], [place] [id number] Social History Tobacco Use Types Packs/Day Years [...] 1347 EDT This patient is calling the [facility] COVID-19 information center with concern for COVID-19. The patient has had achiness and fever for > 10 days. Fever at oncology today 100.4 COVID-19 testing is indicated according to current [facility] algorithm. The patient has been previously tested for Covid-19. 01/16/2020 negative test results. (if yes - list date of testing) Patient is not a health care worker. Patient is immunocompromised. Bilateral Lung CA - Chemo in progress The patient is not a resident of a [facility]cfp or assisted living facility. (If patient is, home health will facilitate testing once ordered). Pt lives in [facility] is closer for testing. Per Nora La she should speak with PCP to get assistance for testing at [facility]. Feels like sheshould not wait to be re-tested. Patient notified. Verbalized understanding of instructions. documented in this encounter Plan of Treatment Not on filedocumented as of this encounter Visit Diagnoses Not on filedocumented in this encounter
--- OUTSIDE RECORDS SUMMARY | 2022-04-22 14:10 | XMS_ITS | Encounter Summary ---
:1945 Author Organization [facility] Address [address] [place] [address] Care Team Providers Name Role Phone Unavailable Primary Care Provider Unavailable Encounter Details Date Type Department Care Team Description 03/16/2007 Results Only [facility] - Elaine Gupta NP conversion [address] [facility] [address] [place] [address] [place] [address] (Wo rk) Social History Tobacco Use Types [...] Phon e Number [facility] [address] [place] [address] SERVICES [facility] [address] [place] [address] IBC (03/16/2007 10:30 EDT) Pathologist Sig nature TIBC 283Comment: Note new 265 - 497 ug/dl PONCE THOMAS LA B method and reference range as of 07/29/06 Specimen Performing Organization Address City/State/ZIP Code Phon e Number [facility] [address] [place] [address] SERVICES [facility] [address] [place] [address] FERRITIN (03/16/2007 10:30 EDT) Pathologist Sig nature Ferritin 131 10 - 291 ng/mL [facility] Specimen Performing Organization Address City/[facility]/ZIP Code Phon e Number [facility] [address] [place] [address] SERVICES [facility] [address] [place] [address] documented in this encounter Visit Diagnoses Not on filedocumented in this encounter
--- OUTSIDE RECORDS SUMMARY | 2022-04-22 14:10 | XMS_ITS | Encounter Summary ---
:1945 Author Organization [facility] Address [address] [place] [address] Care Team Providers Name Role Phone Rene Walker MD Primary Care Provider Unavailable Encounter Details Date Type Department Care Team Description 03/26/2018 Results Only [facility]- Darvin Brady, [address] [facility] [address] [place] [address] (Wo rk) Social History Tobacco [...] 9:56 EDT) TSH 2.14 0.47 - 4.68 [facility] Comment: uIU/ml LABORATORY SERVICES The results of this assay can be falsely lowered due to the consumption of Biotin. Specimen Blood Performing Organization Address City/State/ZIP Code Phon e Number [facility] [address] [place] [address] SERVICES T4 FREE (03/26/2018 9:56 EDT) Pathologist Sig nature T4, Free 1.3 0.8 - 2.2 ng/dl [facility] LABORA TORY SERVICES Specimen Blood Performing Organization Address City/State/ZIP Code Phon e Number [facility] [address] [place] [address] SERVICES documented in this encounter Visit Diagnoses Not on filedocumented in this encounter Care Teams Oilseed Meat Presser Relationship Specialty Start Date End Date Rene Walker MD PCP - General 11/22/1303/31/18 documented as of this encounter
--- OUTSIDE RECORDS SUMMARY | 2022-04-22 14:10 | XMS_ITS | Encounter Summary ---
:1945 Author Organization [facility] Address [address] [place] [address] Care Team Providers Name Role Phone Unavailable Primary Care Provider Unavailable Encounter Details Date Type Department Care Team Description 06/26/2018 Hospital Encounter [facility] - Deric Mendez [facility] MD Margarito 111 [facility] [address] [place] [address] [address] [place] [phone] (Wo rk) Social History Tobacco Use Types [...]
--- OUTSIDE RECORDS SUMMARY | 2022-04-22 14:10 | XMS_ITS | Encounter Summary ---
:1945 Author Organization [facility] Address [address] [place] [address] Care Team Providers Name Role Phone Rene Walker MD Primary Care Provider Unavailable Reason for Visit Reason Comments New Patient Visit left foot/toes red, swelling , painful, ult first Encounter Details Date Type Department Care Team Description 11/23/2013 [facility] Demetrice Patrick Pai n in limb (Primary Vascular Surgery - Dx) [address] [facility] [phone] [facility] Level [address] [place] [address] (Wo rk) Social History Tobacco [...] here. She has not been to a haul truck driver as yet, but we did go over [...] pay well for her to visit a haul truck driver at some point. From a circulatory standpoint, [...] daily. added in this encounter Care Teams Ash Handler Relationship Specialty Start Date End Date Rene Walker MD PCP - General 11/22/1303/31/18 documented as of this encounter
--- OUTSIDE RECORDS SUMMARY | 2022-04-22 14:10 | XMS_ITS | Encounter Summary ---
:1945 Author Organization [facility] Address [address] [place] [address] Care Team Providers Name Role Phone Unavailable Primary Care Provider Unavailable Encounter Details Date Type Department Care Team Description 11/26/2006 Before PRISM Converted [facility] - Zoë Donnelly, Visit ([place] [facility] [address] [place] [address] Social History Tobacco Use Types Packs/Day Years [...] pleura. HISTORY Carly Arguelles is a 61-year-old, [facility] resident, who is seen in radiation oncology [...] Donnelly MD Tomas - KKB Job ID: [id number] Document ID: [id number] cc: Juan Crabtree MD Cancer Data Registry MD Jerry Villa MD - Tomas Donnelly MD Tomas - kkb Job ID: [id number] Document ID: [id number] cc: Juan Crabtree MD Cancer Data Registry MD Jerry Villa MD documented in this encounter Plan of Treatment Not on filedocumented as of this encounter Visit Diagnoses Not on filedocumented in this encounter
--- OUTSIDE RECORDS SUMMARY | 2022-04-22 14:10 | XMS_ITS | Encounter Summary ---
:1945 Author Organization [facility] Address [address] [place] [address] Care Team Providers Name Role Phone Unavailable Primary Care Provider Unavailable Encounter Details Date Type Department Care Team Description 01/30/[address] [facility] [place] Caba MD [facility]ative [facility] [place] [address] [place] [address] [place] [address] [phone] Social History Tobacco Use Types Packs/Day Years [...]
--- OUTSIDE RECORDS SUMMARY | 2022-04-22 14:10 | XMS_ITS | Encounter Summary ---
:1945 Author Organization [facility] Address [address] [place] [address] Care Team Providers Name Role Phone Unavailable Primary Care Provider Unavailable Encounter Details Date Type Department Care Team Description 04/29/[address] [facility] - Deric Mendez [facility] MD Margarito 111 [facility] [address] [place] [address] [address] [place] [phone] (Wo rk) Social History Tobacco Use Types [...]
--- OUTSIDE RECORDS SUMMARY | 2022-04-22 14:10 | XMS_ITS | Encounter Summary ---
:1945 Author Organization [facility] Address [address] [place] [address] Care Team Providers Name Role Phone Unavailable Primary Care Provider Unavailable Encounter Details Date Type Department Care Team Description 10/21/2006 Before [facility] - Juan Crabtree Converted Visit Maple conversion MD Raghav (Maple) 111 [facility] [address] [place], [place] [address] [place] [address] Pavili, Level [address] [place] [address] (Wo rk) Social History Tobacco Use Types Packs/Day Years Used Date Never Assessed Sex Assigned at Date Recorded Not on file documented as of this encounter Progress Notes Juan Crabtree MD - 08/02/2009 0258 EST DIVISION OF CARDIOTHORACIC SURGERY PROGRESS/FOLLOWUP NOTE - 10/21/2006 Darvin Mendez M.D. [address] [place] [address], [address] [place] [address] Dear Darvin: Thank you for the opportunity [...] MD Tomas Vasquez ID: tape Document ID: [id number] cc: Darvin Mendez M.D* Jerry Jauregui M.D.* documented in this encounter Plan of Treatment Not on filedocumented as of this encounter Visit Diagnoses Not on filedocumented in this encounter
--- OUTSIDE RECORDS SUMMARY | 2022-04-22 14:10 | XMS_ITS | Encounter Summary ---
:1945 Author Organization [facility] Address [address] [place] [address] Care Team Providers Name Role Phone Soila Faustin Primary Care Provider Encounter Details Date Type Department Care Team Description 01/30/2020 Lab Requisition [facility] Outr Resulting Lab, Pathology & Laboratory Provider [facility] [address] [place] [address] Social History Tobacco Use Types [...] documented in this encounter Results COVID-19 TEST [facility] PCR (01/30/2020 13:25 EDT) Specimen Swab - Entire nasopharynx (body structur e) Performing Organization Address City/State/ZIP Code Phon e Number [facility] [address] [place] [address] SERVICES COVID-19 TESTING (01/30/2020 13:25 EDT) COVID-19 rt-PCR Negative Negative [facility] Result Comment: CENTER LABORATORY Negative [...] terminated or revoked sooner. Performed on the [employer] Fusion instrument Performing Lab [facility] Lab [facility] SERVICES Specimen Swab - Entire nasopharynx (body structur e) Performing Organization Address City/State/ZIP Code Phon e Number [facility] [address] [place] [address] SERVICES documented in this encounter Visit Diagnoses Not on filedocumented in this encounter Care Teams Bpm Developer Relationship Specialty Start Date End Date Soila Faustin PCP - General Internal Medicine - Primary 02/06/20 [address] [place] [address] documented as of this encounter
--- OUTSIDE RECORDS SUMMARY | 2022-04-22 14:10 | XMS_ITS | Encounter Summary ---
:1945 Author Organization [facility] Address [address] [place] [address] Care Team Providers Name Role Phone Jerry Jauregui MD Primary Care Provider Rene Walker MD Primary Care Provider Unavailable Soila Faustin Primary Care Provider Encounter Details Date Type Department Care Team Description 12/27/2006 Hospital Encounter [facility] Donnelly [facility] MD [address] [place] [address] Social History Tobacco Use Types Packs/Day Years [...] on filedocumented in this encounter Care Teams Certifier Relationship Specialty Start Date End Date Jerry Jauregui MD PCP - General 02/20/13 11/21/13 [address] [place] [address] Rene Walker MD PCP - General 11/22/1303/31/18 Soila Faustin PCP - General Internal Medicine - 02/06/[address] [place] [address] documented as of this encounter
--- OUTSIDE RECORDS SUMMARY | 2022-04-22 14:10 | XMS_ITS | Encounter Summary ---
:1945 Author Organization [facility] Address [address] [place] [address] Care Team Providers Name Role Phone Soila Faustin Primary Care Provider Reason for Referral Radiology Services (Routine) - Specialty Report Received Specialty Diagnoses / Procedures Referred By Contact Refer red To Contact Nuclear Medicine Diagnoses Primary malignant neoplasm of lung, unspecified laterality ([facility]-CMS) ([facility]) Hardeep Bella MD Procedures PET CT EYE TO THIGH 130 [facility], MOB-B [address] [place] [address] Referral ID Status Reason Start Date Expiration Date Visits V isits Requested Authorized [id number] Specialty 11/06/2020 1 1 Report Received Reason for Visit Reason Comments Follow-up Encounter Details Date Type Department Care Team Description 11/06/2020 Office Visit [facility] - Hardeep Bella, Liz imary malignant [facility] Adult Hematology neoplasm of lung, & Oncology 130 [facility], unspecified laterality [address] [facility] MOB-B (HCC-[facility]) (Primary Dx) [address] [place] [address] [place], [place] [phone] [phone] Social History Tobacco Use Types Packs/Day [...] bevacizumab, tolerating relatively well. Receiving this at [facility]. Reviewed CT images with the patient. [...] Hold bevacizumab infusion. Hardeep Bella MD Hematology/Oncology /[facility] Cc:Orin Schreiber APRN, Dr. Soila [...] daily added in this encounter Care Teams Rn Transplant Relationship Specialty Start Date End Date Soila Faustin PCP - General Internal Medicine - Primary 02/06/20 [address] [place] [address] documented as of this encounter
--- OUTSIDE RECORDS SUMMARY | 2022-04-22 14:10 | XMS_ITS | Encounter Summary ---
:1945 Author Organization [facility] Address [address] [place] [address] Care Team Providers Name Role Phone Soila Faustin Primary Care Provider Encounter Details Date Type Department Care Team Description 09/05/2019 Lab Requisition [facility] [place] [facility] Unknown, Provider, Pathology & Laboratory [facility] [address] [place] [address] [place], [place] [address] Social History Tobacco Use Types Packs/Day Years [...] Vitamin B12 556 211 - 911 pg/mL [facility] SERVICES Specimen Blood - Venous blood (substance) Performing Organization Address City/State/ZIP Code Phon e Number [facility] [address] [place] [address] SERVICES documented in this encounter Visit Diagnoses Not on filedocumented in this encounter Care Teams Senior Hardware Engineer Relationship Specialty Start Date End Date Soila Faustin PCP - General Internal Medicine - Primary 02/06/20 [address] [place] [address] documented as of this encounter
--- OUTSIDE RECORDS SUMMARY | 2022-04-22 14:10 | XMS_ITS | Encounter Summary ---
:1945 Author Organization [facility] Address [address] [place] [address] Care Team Providers Name Role Phone Rene Walker MD Primary Care Provider Unavailable Reason for Referral Vascular Lab (Routine/Next Available) - Closed Specialty Diagnoses / Procedures Referred By Contact Refer red To Contact Diagnoses Intermittent claudication ([facility]) ([facility]) Sky Millard MD Procedures VL LOWER ARTERIAL PVR RESTING [address] [phone] Referral ID Status Reason Start Date Expiration Date Visits Requ ested Visits Authorized [id number] Closed 11/23/2013 1 1 Encounter Details Date Type Department Care Team Description 11/22/2013 Orders Only [facility] Sky Millard, Int ermittent Vascular Surgery - claudication ([facility]) [address] (Primary Dx) [address] [place] [address] [facility] [phone] [address] (Wo rk) Social History Tobacco Use Types Packs/Day Years Used Date Never Assessed Sex Assigned at Date Recorded Not on file documented as of this encounter Plan of Treatment Not on filedocumented as of this encounter Procedures Procedure Name Priority Date/Time Associated Diagnosis Comme nts VL LOWER ARTERIAL Routine 11/23/2013 8:06 Intermittent Results for this PVR RESTING EST claudication procedure are i n ([facility]) the results section. documented in this encounter Results VL LOWER ARTERIAL PVR RESTING (11/23/2013 8:06 EST) Anatomical Region Laterality Modality Other Specimen Narrative VASCULAR - 11/24/2013 17:10 EST Vascular Diagnostic Laboratory [facility], Level 5 [address] [place], [place] [address] Technologist: IMPRESSIONS No evidence of arterial insufficiency. PROCEDURE: Multi-level lower extremity arterial phy siologic evaluation with resting and post exercise study. ? Continuous wa ve Doppler, segmental blood pressures, photoplethysmography, pulse volume recor ding, ankle-brachial index, and exercise stress. ?Treadmill stress arterial D oppler test was performed. The patient ambulated on the treadmill at an incline of 0degreesat 1.5mph. Post exercise measurements were recorded. The patient exercised for 5min. Patient was unable to tolerate incline or faster treadmill. INDICATION: Claudication. Second and fifth toe swell ing LLE. HISTORY: RISK FACTORS: Current tobacco use. Hypertension. Dysli pidemia. Right brachial systolic: 150mm Hg: Left brachial systolic: 152mm Hg 152 Arterial evaluation findings: Right: 1. Ankle brachial indices at rest are co nsistent with normal values. 2. Segmental pressures and waveforms sug gest no significant disease. 3. After stress evaluation of the right lower extremity there was no significant ?? change. Left: 1. Ankle brachial indices at rest are co nsistent with normal values. 2. Segmental pressures and waveforms sug gest no significant disease. 3. Slight decrease in digit waveforms co mpared to contralateral side. 4. After stress evaluation of the left l ower extremity there was no significant ?? change. SEGMENTAL PRESSURES AND PVR: + + +------- -+ + + Stage ? Location ? Pressure Brachial index PVR waveform + + +------- -+ + + ? Right thigh ? Normal ? + + +------- -+ + + ? Right calf ? Normal ? + + +------- -+ + + ? Right ankle ? 166mm Hg 1.09 ? Normal ? + + +------- -+ + + ? Right first digit 1 20mm Hg 0.79 ? Normal ? + + +------- -+ + + ? Left thigh ? Normal ? + + +------- -+ + + ? Left calf ? Normal ? + + +------- -+ + + ? Left ankle ? 154mm Hg 1.01 ? Normal ? + + +------- -+ + + ? Left first digit 1 10mm Hg 0.72 ? Normal ? + + +------- -+ + + Post-exercise Right DP ? 180 mm Hg 1.1 ? + + +------- -+ + + Post-exercise Left DP ? 18 3mm Hg 1.12 ? + + +------- -+ + + Post-exercise Left brachial ? 164mm Hg ? + + +------- -+ + + * DOPPLER ANALYSIS: - Right GIRLS TENNIS COACH: Triphasic - Right SFA: Triphasic - Right POP: Triphasic - Right SECURITIES COUNSELOR: Biphasic - Right DPA: Biphasic - Left GIRLS TENNIS COACH: Triphasic - Left SFA: Triphasic - Left POP: Triphasic - Left SECURITIES COUNSELOR: Biphasic - Left DPA: Biphasic * Electronically signed by: Sky Millard [id number] Procedure Note 11/24/2013 Vascular Diagnostic Laboratory [facility], [facility] 5 [address] [place] [address] Technologist: IMPRESSIONS No evidence of arterial insufficiency. PROCEDURE: Multi-level lower extremity arterial phy siologic evaluation with resting and post exercise study. Continuous wave Dop pler, segmental blood pressures, photoplethysmography, pulse volume recor ding, ankle-brachial index, and exercise stress. Treadmill stress arterial Dopple r test was performed. The patient ambulated on the treadmill at an incline of 0degreesat 1.5mph. Post exercise measurements were recorded. The patient exercised for 5min. Patient was unable to tolerate incline or faster treadmill. INDICATION: Claudication. Second and fifth toe swell ing LLE. HISTORY: RISK FACTORS: Current tobacco use. Hypertension. Dysli pidemia. Right brachial systolic: 150mm Hg: Left brachial systolic: 152mm Hg 152 Arterial evaluation findings: Right: 1. Ankle brachial indices at rest are co nsistent with normal values. 2. Segmental pressures and waveforms sug gest no significant disease. 3. After stress evaluation of the right lower extremity there was no significant change. Left: 1. Ankle brachial indices at rest are co nsistent with normal values. 2. Segmental pressures and waveforms sug gest no significant disease. 3. Slight decrease in digit waveforms co mpared to contralateral side. 4. After stress evaluation of the left l ower extremity there was no significant change. SEGMENTAL PRESSURES AND PVR: + + +------- -+ + + Stage Location Pressure Brachial inde x PVR waveform + + +------- -+ + + Right thigh Normal + + +------- -+ + + Right calf Normal + + +------- -+ + + Right ankle 166mm Hg 1.09 Normal + + +------- -+ + + Right first digit 120mm Hg 0.79 Norm al + + +------- -+ + + Left thigh Normal + + +------- -+ + + Left calf Normal + + +------- -+ + + Left ankle 154mm Hg 1.01 Normal + + +------- -+ + + Left first digit 110mm Hg 0.72 Norm al + + +------- -+ + + Post-exercise Right DP 180mm Hg 1.1 + + +------- -+ + + Post-exercise Left DP 183mm Hg 1.12 + + +------- -+ + + Post-exercise Left brachial 164mm Hg + + +------- -+ + + * DOPPLER ANALYSIS: - Right GIRLS TENNIS COACH: Triphasic - Right SFA: Triphasic - Right POP: Triphasic - Right SECURITIES COUNSELOR: Biphasic - Right DPA: Biphasic - Left GIRLS TENNIS COACH: Triphasic - Left SFA: Triphasic - Left POP: Triphasic - Left SECURITIES COUNSELOR: Biphasic - Left DPA: Biphasic * Electronically signed by: Sky Millard [id number] Performing Organization Address City/State/ZIP Code Phon e Number [facility] VASCULAR IMAGING [facility] VASCULAR documented in this encounter Visit Diagnoses Diagnosis Intermittent claudication (HCC-CMS) (HCC ) - Primary Peripheral vascular disease, unspecified documented in this encounter Care Teams Security Professional Relationship Specialty Start Date End Date Rene Walker MD PCP - General 11/22/1303/31/18 documented as of this encounter
--- OUTSIDE RECORDS SUMMARY | 2022-04-22 14:10 | XMS_ITS | Encounter Summary ---
:1945 Author Organization [facility] Address [address] [place] [address] Care Team Providers Name Role Phone Soila Faustin Primary Care Provider Encounter Details Date Type Department Care Team Description 11/15/2020 Results Only Imaging [facility] - Mary Bella, [facility] Radiology Resul ts [address] [place] [address] [facility] [phone] [address] [place] [address] (Wo rk) Social History Tobacco Use Types [...] TO THIGH (11/15/2020 8:25 EST) Specimen Narrative [facility] RADIOLOGY - 11/15/2020 8:25 EST ? EXAM: PET/CT SCAN/PET/CT SKULL BASE TO MO EX. D/ (0740) ? CLINICAL INFORMATION: ? 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 NEW LIVER LESION ? ON RECENT CT AT [facility]. ?METASTAS IS ? PET/CT SKULL BASE TO MID-THIGH ? Signs and Symptoms/Comments: ??C3 4.90 PRIMARY MALIGNANT NEOPLASM OF ? LUNG, UNSPECIFIED LATERALITY, RES TAGING METASTATIC LUNG CANCER. NEW ? LIVER LESION ON RECENT CT AT [facility]. ?METASTASIS ? Comparison: CT chest abdomen pelv is on 10/31/2020, 08/10/2020, ? 05/11/2020, 07/22/2018. ? Technique: 100 minutes following the IV injection of 19.08 mCi of ? D86-nesmxjeytuaafruoip, PET imagi ng was performed from the [...] evidence of osseous metastatic ? disease. ? [facility] measurements as fo llows: ? * ??Background [...] CC: ? Transcribed Date/Time: 11/15/2020 (824) ? Trust Evaluation Supervisor: ? Printed Date/Time: 11/15/2020 (05 22) ? PAGE 2 ? Sonya d Report ? Procedure Note Duncan Herrera MD - 11/15/2020 EXAM: PET/CT SCAN/PET/CT SKULL BASE TO MO EX. D/ (0740) CLINICAL INFORMATION: C34.90 PRIMARY MALIGNANT NEOPLASM OF REINALDO NG UNSPECIFIED LATERALITY RESTAGING METASTATIC LUNG CANCER. NEW L IVER LESION ON RECENT CT AT [facility]. ?METASTASIS PET/CT SKULL BASE TO MID-THIGH Signs and Symptoms/Comments: C34.90 JALEN PATRICE MALIGNANT NEOPLASM OF LUNG, UNSPECIFIED LATERALITY, RESTAGING METASTATIC LUNG CANCER. NEW LIVER LESION ON RECENT CT AT [facility]. ?M ETASTASIS Comparison: CT chest abdomen pelvis on 10/31/2020, 08/10/2020, 05/11/2020, 07/22/2018. Technique: 100 minutes following the IV injection of 19.08 mCi of I39-ruqukiyywllmuezgqc, PET imaging was performed from the skull [...] convincing ev idence of osseous metastatic disease. [facility] measurements as follows: * Background liver uptake: [...] MD CC: Transcribed Date/Time: 11/15/2020 (824 ) Trust Evaluation Supervisor: Printed Date/Time: 11/15/2020 (824) PAGE 2 Signed Report Performing Organization Address City/State/ZIP Code Phon e Number [facility] RADIOLOGY documented in this encounter Visit Diagnoses Not on filedocumented in this encounter Care Teams Needle Felt Making Machine Operator Relationship Specialty Start Date End Date Soila Faustin PCP - General Internal Medicine - Primary 02/06/20 [address] [place] [address] documented as of this encounter
--- OUTSIDE RECORDS SUMMARY | 2022-04-22 14:10 | XMS_ITS | Encounter Summary ---
:1945 Author Organization Address [address] [place] [address] Care Team Providers Name Role Phone Unavailable Primary Care Provider Unavailable Encounter Details Date Type Department Care Team Description 04/29/2018 Results Only Imaging [facility]- Sundeep Mendez is RUIZ Pimentel MD [phone] [address] [facility] [address] [place] [address] (Wo rk) Social History Tobacco [...] Anatomical Region Laterality Modality Other Specimen Narrative [facility] RADIOLOGY [facility]IN [facility] - 04/29/2018 15:[address] EYE TO THIGH 04/29/2018 12:59 PM Signs and Symptoms: ??NEW LLL LUNG CA NM PET EYE TO THIGH ASSESS FOR METS Comparison: The chest CT obtained February 262017 Technique: Approximately 91 minutes following the I V injection of 9.02 mCi of Q78-nmzgeqdxtqgyhgnpjq, 3D TOF PET imagi ng was obtained [...] I V injection of 9.02 mCi of H30-eyduqrwsdgmafpgnyu, 3D TOF PET imagi ng was obtained from the skull base through the upper thighs. Att enuation correction was provided using a Quick TV digital PET/CT dedicated closed ring PET / [...] e Number [facility] documented in this encounter Visit Diagnoses Not on filedocumented in this encounter
--- OUTSIDE RECORDS SUMMARY | 2022-04-22 14:10 | XMS_ITS | Encounter Summary ---
:1945 Author Organization [facility] Address [address] [place] [address] Care Team Providers Name Role Phone Unavailable Primary Care Provider Unavailable Encounter Details Date Type Department Care Team Description 01/27/2020 Abstract [facility] Neurology [facility] [address] [place], [place] [id number] Social History Tobacco Use Types Packs/Day Years [...]
--- OUTSIDE RECORDS SUMMARY | 2022-04-22 14:10 | XMS_ITS | Encounter Summary ---
:1945 Author Organization [facility] Address [address] [place] [address] Care Team Providers Name Role Phone Unavailable Primary Care Provider Unavailable Encounter Details Date Type Department Care Team Description 12/09/2006 Before [facility] - Juan Crabrtee Converted Visit Maple conversion MD Raghav (Maple) 111 [facility] [address] [place], [place] [address] [place] [address] [facility], Level [address] [place] [address] (Wo rk) Social History Tobacco Use Types Packs/Day Years Used Date Never Assessed Sex Assigned at Date Recorded Not on file documented as of this encounter Progress Notes Juan Crabtree MD - 08/01/2009 0220 EST DIVISION OF CARDIOTHORACIC SURGERY PROGRESS/FOLLOWUP NOTE - 12/09/2006 Darvin Mendez M.D. [address] [place] [address], [address] [place] [address] Dear Darvin: Carly Arguelles returned to the [...] Juan Crabtree MD 01/26/2007 10:18 Rich[facility] Crabtree[facility] Juan Crabtree MD - Everardo Crabtree MD P - Job ID: tape Document ID: [id number] cc: Darvin Mendez M.D.* Jerry Jauregui M.D.* Abdirahman Donnelly M.D.* documented in this encounter Plan of Treatment Not on filedocumented as of this encounter Visit Diagnoses Not on filedocumented in this encounter
--- OUTSIDE RECORDS SUMMARY | 2022-04-22 14:10 | XMS_ITS | Encounter Summary ---
:[address] [facility] Address [address] [place] [address] Care Team Providers Name Role Phone Soila Fausitn Primary Care Provider Encounter Details Date Type Department Care Team Description 02/05/2021 Results Only Imaging [facility] - Mary Bella, [facility] Radiology Resul ts [address] [place] [address] [facility] [phone] [address] [place] [address] (Wo rk) Social History Tobacco Use Types [...] TO THIGH (02/05/2021 16:24 EDT) Specimen Narrative RADIOLOGY - 02/05/2021 16:24 EDT ? EXAM: [...] IV injection of 17.79 mCi of ? Z86-djyhsxgofvjsquyevb, PET imagi ng was performed from the [...] evidence of osseous metastatic ? disease. ? Welding Operator measurements as fo llows: ? * Background [...] CC: ? Transcribed Date/Time: 02/05/2021 (1624) ? Hall Tender: ? Printed Date/Time: 02/05/2021 (16 24) ? [...] the IV injection of 17.79 mCi of O60-mygcxqkuceytfrxcfu, PET imaging was performed from the skull [...] PET evide nce of osseous metastatic disease. Welding Operator measurements as follows: * Background liver uptake: [...] Duncan Herrera MD CC: Transcribed Date/Time: 02/05/2021 (4969 ) Hall Tender: Printed Date/Time: 02/05/2021 (3033) PAGE 2 Signed Report Performing Organization Address City/State/ZIP Code Phon e Number RADIOLOGY documented in this encounter Visit Diagnoses Not on filedocumented in this encounter Care Teams Rope Maker Relationship Specialty Start Date End Date Soila Faustin PCP - General Internal Medicine - Primary 02/06/[address] [facility] [facility] [place] [address] documented as of this encounter
--- OUTSIDE RECORDS SUMMARY | 2022-04-22 14:10 | XMS_ITS | Encounter Summary ---
:1945 Author Organization [facility] Address [address] [place] [address] Care Team Providers Name Role Phone Unavailable Primary Care Provider Unavailable Encounter Details Date Type Department Care Team Description 04/06/2018 Results Only [facility]- [facility] Angel Bush MD PhD [phone] [address] [facility] [address] [place] [address] (Wo rk) Social History Tobacco [...] Routine 04/06/2018 12:19 Resu lts for this [facility] EDT procedure are i n the results section. documented in this encounter Results MET FISH TESTING AT [facility] (04/06/2018 12:19 EDT) MET FISH Result See Pathology [facility] Scanned Report in LABORATORY SERVICES RUIZ.Comment: Assayed by [facility], [place], [place] Specimen Other Performing Organization Address City/State/ZIP Code Phon e Number [facility] LABORATORY [address] [place] [address] SERVICES documented in this encounter Visit Diagnoses Not on filedocumented in this encounter
--- OUTSIDE RECORDS SUMMARY | 2022-04-22 14:10 | XMS_ITS | Encounter Summary ---
:1945 Author Organization [facility] Address [address] [place] [address] Care Team Providers Name Role Phone Unavailable Primary Care Provider Unavailable Encounter Details Date Type Department Care Team Description 04/06/2018 Results Only Imaging [facility]- Sundeep Mendez is RUIZ Pimentel MD [phone] [address] [facility] [address] [place] [address] (Wo rk) Social History Tobacco [...] Anatomical Region Laterality Modality Other Specimen Narrative [facility] RADIOLOGY [facility] - 04/06/2018 14:49 [...] biopsy showed adjacent perilesional hemorrhage without hemoptysis. Chandler were removed, hemostasis obtained, and a sterile [...] biopsy showed adjacent perilesional hemorrhage without hemoptysis. Chandler were removed, hemostasis obtained, and a sterile dressing was placed. The patient tolerated the procedure well . The patient was then placed in the supin e position and transferred to postprocedure recovery for monitoring . Impression: 1. Successful CT-guided aspiration and c ore biopsy of an 8 mm nodule within the left lower lobe. Performing Organization Address City/State/ZIP Code Phon e Number [facility]IOLOG[facility] documented in this encounter Visit Diagnoses Not on filedocumented in this encounter
--- OUTSIDE RECORDS SUMMARY | 2022-04-22 14:10 | XMS_ITS | Encounter Summary ---
:1945 Author Organization [facility] Address [address] [place] [address] Care Team Providers Name Role Phone Soila Faustin Primary Care Provider Reason for Visit Reason Onset Date Comments Orders (Non Pre-visit) 01/25/2021 PET scan order Encounter Details Date Type Department Care Team Description 01/25/2021 Telephone [facility] - Hardeep Bella Or ders (Non Pre-visit) [facility] Adult Hematology & MD (PET scan order) Oncology [address] [facility], [address] [facility] [address] [place] [address] [address] [place] [address] Social History Tobacco Use Types [...] Bryan - 01/25/2021 0904 EDT Tina from [facility] called, she said Dr Bella spoke with Orin and pt will need a PET scan scheduled for 01/29/21. Please add the PET scan order. documented in this encounter Plan of Treatment Not on filedocumented as of this encounter Visit Diagnoses Diagnosis Primary malignant neoplasm of lung, unsp ecified laterality (HCC-CMS) (HCC) - Primary documented in this encounter Care Teams Baseball Scout Relationship Specialty Start Date End Date Soila Faustin PCP - General Internal Medicine - Primary 02/06/20 4 [address] [facility] [place] [address] documented as of this encounter
--- OUTSIDE RECORDS SUMMARY | 2022-04-22 14:10 | XMS_ITS | Encounter Summary ---
:1945 Author Organization [facility] Address [address] [place] [address] Care Team Providers Name Role Phone Unavailable Primary Care Provider Unavailable Encounter Details Date Type Department Care Team Description 04/29/2018 Results Only [facility]- [facility] Unknown, Provider, (Wo rk) Social [...] 10:42 EDT) Glucose, 85 70 - 100 [facility] Fingerstick mg/dl LABORATORY SERVICES Ocean Import Representative ID [id number]: [facility] Test performed by LABORATORY Nuclear Medicine SERVICES Specimen Blood Performing Organization Address City/State/ZIP Code Phon e Number [facility] LABORATORY [address] [place] [address] SERVICES documented in this encounter Visit Diagnoses Not on filedocumented in this encounter
--- OUTSIDE RECORDS SUMMARY | 2022-04-22 14:10 | XMS_ITS | Encounter Summary ---
:1945 Author Organization [facility] Address [address] [place] [address] Care Team Providers Name Role Phone Unavailable Primary Care Provider Unavailable Encounter Details Date Type Department Care Team Description 11/06/2006 - Hospital Encounter [facility] Derek Crabtreetye cnoklin 11/11/2006 Cardiothoracic Surgery MD [facility] [address] [phone] [facility] Level [address] [place] [address] (Wo rk) Social History Tobacco Use Types Packs/Day Years Used Date Never Assessed Sex Assigned at Date Recorded Not on file documented as of this encounter Discharge Disposition Disposition Code Departure Means Destination Home-Health Care Svc documented in this encounter OR Notes OR Surgeon - Jaycee Dasilva MD - 11/06/2006 0000 EST PROCEDURE REPORT PT TYPE: IP PT LOC: [id number] SERVICE DATE: 11/06/2006 SURGEON: MILLI Colon MDLisa Floyd, MDMitchell C Norotsky, MD THIRD OFFICER: Jaycee Dasilva MD PREOPERATIVE DIAGNOSIS: 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 PROCEDURE: Right lower lobectomy. ANESTHESIA: General via double-lumen tube. INDICATIONS: The patient is a 40-bznt[age]nswglywd who had approximately a 70-zxmd-nany tobacco history who began to experience pain [...] tubes were placed at this time. A 32-Bangladeshi chest tube was placed anteriorly and a 36-Bangladeshi chest tube was placed posteriorly and secured [...] Juan Crabtree MD 11/11/2006 16:02 Larry Colon, [facility] MD Dictated by: Jaycee Dasilva MD Juan Crabtree MD - MD Brown A - ss Job ID: [id number] Document ID: [id number] cc: MD Juan Bhatt MD Cancer Data [...] Address City/State/ZIP Code Phon e Number [facility] [address] [place] [address] SERVICES [facility] [address] [place] [address] CHEST PA AND LATERAL (11/10/2006 15:02 EST) [...] Address City/State/ZIP Code Phon e Number [facility] [address] [facility] [place] [address] [facility] [address] [place], [place] [address] CHEST PA (11/09/2006 15:44 EST) Anatomical Region Laterality Modality Other Specimen Narrative [facility] - 04/07/2009 6: 13 EDT RIGHT [...] x. D: ??11/09/06 T: ??11/10/06 /[facility] Procedure Note Cristiano Chang MD - 04/07/2009 [...] IMPRESSION: No evidence of pneumothorax. /[facility] Performing Organization Address City/State/ZIP Code Phon e Number [facility] [address] [facility] [address] [facility] [address] [place], [place] [address] PORTABLE CHEST 1 VIEW [...] umothorax. D: ??11/08/06 T: ??11/10/06 /[facility] Procedure Note Beverly Major MD - 04/07/2009 [...] current pneum othorax. /elizabeth Performing Organization Address [facility] Phon e Number [facility] [address] [facility] [address] [facility] [address] [place], [place] [address] (ABNORMAL) ELECTROLYTES (11/08/2006 4:28 EST) Pathologist Sig [facility] Sodium 130 (L) 136 - 145 mEq/L [facility] Potassium 4.2 3.5 - 5.0 mEq/L [facility] Chloride 102 96 - 110 mEq/L [facility] CO2 26 24 - 32 mEq/L [facility] Specimen Performing Organization Address [facility] Phon e Number [facility] [address] [place] [address] SERVICES [facility] [address] [place] [address] CREATININE (11/08/2006 4:28 EST) [facility] Creatinine 0.75 0.7 - 1.5 mg/dl [facility] GFR, Calculated >60 ml/min/1.73m2 [facility] Specimen Performing Organization Address [facility] Phon e Number [facility] [address] [place] [address] SERVICES [facility] [address] [place] [address] (ABNORMAL) HEMAGRAM AND DIFFERENTIAL (11/08/2006 4:28 EST) Pathologist [facility] WBC 11.69 4.0 - 12.4 K/cmm [facility] RBC 3.89 3.86 - 5.04 M/cmm [facility] Hemoglobin 11.5 (L) 11.6 - 15.2 [...] Address City/State/ZIP Code Phon e Number [facility] [address] [place] [address] SERVICES [facility] [address] [place] [address] BUN (11/08/2006 4:28 EST) Pathologist Sig nature BUN 10 10 - 26 mg/dl [facility] Specimen Performing Organization Address City/State/ZIP Code Phon e Number [facility] [address] [place] [address] SERVICES [facility] [address] [place] [address] (ABNORMAL) ELECTROLYTES (11/07/2006 4:14 EST) Pathologist Sig nature Sodium 130 (L) 136 - 145 mEq/L [facility] Potassium 4.7 3.5 - 5.0 mEq/L [facility] Chloride 102 96 - 110 mEq/L [facility] CO2 26 24 - 32 mEq/L [facility] Specimen Performing Organization Address City/[facility]/ZIP Code Phon e Number [facility] [address] [place] [address] SERVICES [facility] [address] [place] [address] CREATININE (11/07/2006 4:14 EST) Pathologist Sig nature Creatinine 0.83 0.7 - 1.5 mg/dl [facility] GFR, Calculated >60 ml/min/1.73m2 [facility] Specimen Performing Organization Address City/State/ZIP Code Phon e Number [facility] [address] [place] [address] SERVICES [facility] [address] [place] [address] (ABNORMAL) HEMAGRAM AND DIFFERENTIAL (11/07/2006 4:14 EST) [...] [facility] Specimen Performing Organization Address City/[facility]/ZIP Code Phon e Number [facility] [address] [place] [address] SERVICES [facility] [address] [place] [address] BUN (11/07/2006 4:14 EST) Pathologist Sig nature BUN 16 10 - 26 mg/dl [facility] Specimen Performing Organization Address [facility] Phon e Number [facility] [address] [place] [address] SERVICES [facility] [address] [place] [address] MRSA MOLECULAR DETECTION (11/06/2006 14:01 EST) Specimen Nares [facility] Description LAB Result NEGATIVE for [facility] Methicillin Resistant LAB Staphylococcus aureus DNA by PCR. Report Status Final [facility] [id number] LAB Specimen Performing Organization Address [facility] Phon e Number [facility] [address] [place] [address] SERVICES [facility] [address] [place] [address] (ABNORMAL) HEMAGRAM (11/06/2006 11:32 EST) Pathologist Sig [...] [facility] Specimen Performing Organization Address [facility]/ZIP Code Phon e Number [facility] [address] [place] [address] SERVICES [facility] [address] [place] [address] (ABNORMAL) GLUCOSE, GLUCOMETER (11/06/2006 11:27 EST) Glucose, 139 (H) 70 - 100 [facility] Fingerstick mg/dl LAB Examination Grader ID [id number] [facility] Test Performed by Nursing Services LAB Specimen Performing Organization Address City/State/ZIP Code Phon e Number [facility] [address] [place] [address] SERVICES [facility] [address] [place] [address] PORTABLE CHEST 1 VIEW (11/06/2006 11:07 EST) [...] and overall, the lungs are c lear. /[facility]. I have personally reviewed the images an d the above interpretation and agree with the findings. Performing Organization Address City/State/ZIP Code Phon e Number [facility] [address] [facility] [address] [facility] [address] [place], [place] [address] documented in this encounter Visit Diagnoses Not on filedocumented in this encounter
--- OUTSIDE RECORDS SUMMARY | 2022-04-22 14:11 | XMS_ITS | Encounter Summary ---
:1945 Author Organization [facility] Address [address] [place] [address] Care Team Providers Name Role Phone Unavailable Primary Care Provider Unavailable Encounter Details Date Type Department Care Team Description 02/06/2006 Hospital Encounter [facility] - Deric Mendez MD 111 [facility] [address] [place] [address] [address] [place] [phone] (Wo rk) Social History Tobacco Use Types [...] right lung biopsy. /lds. Performing Organization Address [facility] Code Phon e Number [facility] [address] [facility] [address] [address] CHEST PA (02/17/2006 17:00 EDT) Anatomical Region Laterality Modality Other Specimen Narrative [facility] - 04/14/2009 13 :57 EDT RIGHT [...] post bio psy. /tns Performing Organization Address [facility] Code Phon e Number [facility] [address] [facility], [place] [address] GUIDE BIOPSY/ASPIR/INJECT (02/17/2006 [...] skin i ncision made, an 8-cm long phhpa-afoz-inhpfj needle was advanced in to the skin [...] skin i ncision made, an 8-cm long cewyg-nays-yxkgnp needle was advanced in to the skin [...] City/State/ZIP Code Phon e Number [facility] [address] [facility] [place] [address] [facility] [address] [place], [place] [address] PROTIME (02/06/2006 12:00 EDT) Pro Time 13.1 12.0 - 15.0 [facility] secs I.N.R. 1.0 0.9 - 1.1 [facility] Comment: Ratio Moderate Intensity Coumadin INR = 2.0-3.0 Adjustments in anticoagulant therapy dose should be based upon the INR and NOT the Pro Time. Specimen Performing Organization Address City/State/ZIP Code Phon e Number [facility] [address] [place] [address] SERVICES [facility] [address] [place] [address] documented in this encounter Visit Diagnoses Not on filedocumented in this encounter
--- OUTSIDE RECORDS SUMMARY | 2022-04-22 14:11 | XMS_ITS | CCD ---
:1945 Author Care Team Providers Name Role Phone RADHA VANN, CLEOPATRA Gómez Attending Physician Unavailable Vital Signs Unknown or Not Available. Allergies Allergy Code Allergy Type Reaction Status PENICILLINS (CLASS) 0 Drug allergy pt doesn't know Activ e TETRACYCLINE 22695 Drug allergy Active Procedures Unknown or Not Available. History of Immunizations Unknown or Not Available. Problems Problem Code Start Date Resolved Date Status CHRONIC AIRWAY OBSTRUCTION 67451735 A ctive HX OF BRONCHOGENIC MALIGNANCY 014603427 Active MULTIPLE SCLEROSIS 97308215 Active Hyperemesis 829626434 Active HTN 48644343 Active Acute respiratory failure with hypoxia 88422982 Active COPD with exacerbation 762190209 Activ e Cancer of lung 81975717 Active Acute CHF 15501016 Active Hypertension 86839161 Active Near syncope 505786173 Active Dehydration 77668098 Active High troponin I level 012446443 Active Acute exacerbation of COPD 918847229 08/07/2021 A ctive Results COMPREHENSIVE METABOLIC PANEL [...] 33 mmol/L L=22 H= 34 ANION GAP 27205-5 0.8 mmol/L CALCIUM SERUM 11207-5 9.4 mg/dL L=8.2 H=10.2 BILIRUBIN TOTAL 1975-2 0.3 mg/dL L=0.0 H=1.3 ALK. PHOS. 6768-6 111 U/L L=46 H=116 SGOT (AST) 1920-8 12 U/L L=15 H=37 SGPT (ALT) 1742-6 19 U/L L=12 H=78 TOTAL PROTEIN 2885-2 6.0 gm/dL L=6.0 H=8.0 ALBUMIN 1751-7 3.2 gm/dL L=3.4 H=5.0 AGE 75 years eGFR (non-Afr.Amer.) 80698-4 65 mL/min eGFR (Afr-Cameroonian) 60911-4 79 mL/min MAGNESIUM SERUM - Collect Date/Time: 08/2021 08:52 Test Name Code Test Result Test Units Test Ref Range MAGNESIUM 22526-9 1.8 mg/dL L=1.8 H=2.4 CBC W/ DIFFERENTIAL - Collect Date/Time: 05/09/2021 08:52 Test Name Code Test Result Test Units Test Ref Range WBC 6690-2 7.56 th/cmm L=5.00 H=10.00 NEUT % 78.4 % L=40.0 H=80.0 LYMPH % 9.5 % L=10.0 H=50.0 MONO % 83078-9 9.7 % L=2.0 H=12.0 EOS % 1.2 % L=0.0 H=8.0 BASO % 0.8 % L=0.0 H=3.0 IG % 2514-8 0.4 % L=0.0 H=1.1 NRBC % 14040-9 0.0 % L=0.0 H=0.0 NEUT abs count 751-8 5.9 th/cmm L=1.6 H=8.4 LYMPH abs count 731-0 0.7 th/cmm L=1.5 H=4.0 MONO abs count 742-7 0.7 th/cmm L=0.2 H=1.0 EOS abs count 711-2 0.1 th/cmm L=0.0 H=0.5 BASO abs count 704-7 0.1 th/cmm L=0.0 H=0.2 IG abs count 92046-7 0.0 th/cmm L=0.0 H=0.1 NRBC abs count 62675-2 0.0 mil/cmm L=0.0 H=0.0 RBC 789-8 3.74 [...] Frequency Route Modification Start Date/Time predniSONE 10MG 414372 1 TABLET DAILY ORAL 08/07/20 21 Oral Tablet 15:21 Prescription Detail TAKE 5 TABS ORAL FOR 2 DAYS, THEN 4 TABS FOR 2 DAYS, THEN 3 TABS FOR 2 DAYS, THEN 2 TABS FOR 2 DAYS, THEN 1 TAB FOR 2 DAYS Ipratropium 9404011 1 NEEDED INHALATION 021 15:20 Stanford-Albuterol Sulfate FOUR TIMES A 0.5MG/3ML-3MG/3ML DAY Inhalation Solution Prescription Detail 1 INHALATION NEEDED FOUR TIMES A DAY FOR Difficulty Breathing Acetaminophen 325MG 713560 650 MILLIGRAMS NEEDED ORAL 06/28/2020 09:36 Oral Tablet EVERY 4 HOURS Prescription Detail TAKE 650 MILLIGRAMS ORAL NEEDED EVERY 4 HOURS Amitriptyline HCl 50MG 071752 50 MILLIGRAMS BEDTIME ORAL 06/28/2020 09:36 Oral Tablet Prescription Detail TAKE 50 MILLIGRAMS ORAL BEDT МАРИЯ Atorvastatin Calcium 696018 20 MILLIGRAMS EVERY EVENING ORAL 06/28/2020 09:36 20MG Oral Tablet Prescription Detail TAKE 20 MILLIGRAMS ORAL EVER Y EVENING Budesonide 0.5MG/2ML 497616 1 EACH DAILY INHALATION 06/28/2020 09:36 Inhalation Suspension Prescription Detail 1 EACH INHALATION DAILY Cetirizine 10MG Oral 7155216 10 MILLIGRAMS BEDTIME ORAL 06/28/2020 09:36 Tablet Prescription Detail TAKE 10 MILLIGRAMS ORAL BEDT МАРИЯ Famotidine 20MG 668375 20 MILLIGRAMS NEEDED TWICE ORAL 06/28/2020 09:36 Oral Tablet DAILY Prescription Detail TAKE 20 MILLIGRAMS ORAL N EEDED TWICE DAILY Ipratropium 8683358 1 EACH NEEDED INHALATION 09:36 Stanford-Albuterol Sulfate 0.5MG/3ML-3MG/3ML Inhalation Solution Prescription Detail 1 EACH INHALATION NEEDED Lidocaine-Prilocaine 359176 1 EACH NEEDED TOPICAL 1 2.5%-2.5% Topical APPLICATION 09 :36 application Cream Prescription Detail 1 EACH TOPICAL APPLICATION NEEDED Losartan Potassium 100MG 429053 100 MILLIGRAMS DAILY ORAL 06/28/2020 09:36 Oral Tablet Prescription Detail TAKE 100 MILLIGRAMS ORAL PARRIS LY Magnesium 500 MG Oral 741973 2 TABLET THREE TIMES A DAY ORAL 06/28/2020 09:36 Tablet Prescription Detail TAKE 2 TABLET ORAL THREE CELSO ES A DAY Morphine Sulfate 60MG 962951 60 MILLIGRAMS TWICE A DAY ORAL 06/28/2020 09:36 Oral Capsule, Extended Release Prescription Detail TAKE 60 MILLIGRAMS ORAL TWIC E A DAY Narcan 4MG/0.1ML Nasal [place] 0417076 1 EACH NEEDED NASAL 06/28/2020 09:36 Prescription Detail SPRAY 1 EACH NASAL NEEDED Omeprazole 40MG Oral 20021106 40 MILLIGRAMS DAILY ORAL 06/28/2020 09:36 Capsule, Delayed Release Prescription Detail TAKE 40 MILLIGRAMS ORAL BETTY Y Ondansetron 4MG Oral Tablet 699220 1 TABLET DAILY ORAL 06/28/2020 09:36 Prescription Detail TAKE 1 TABLET ORAL DAILY Polyethylene Glycol 05181511271 1 EACH NEEDED DAILY ORAL 06/28/2020 09:36 17GM/1Dose Oral Powder for Solution Prescription Detail TAKE 1 EACH ORAL NEEDED D AILY PreserVision Areds 2 NA 12234950153 2 CAPSULE DAILY ORAL 06/28/2020 09:36 Oral Capsule, Liquid Filled Prescription Detail TAKE 2 CAPSULE ORAL DAILY ProAir HFA 482827 2 PUFF NEEDED INHALATION 06/28/20 09:36 0.09MG/1Actuation THREE TIMES A Inhalation Suspension DAY Prescription Detail 2 PUFF INHALATION NEEDED THREE TIMES A DAY Pulmicort Flexhaler 744515 2 PUFF TWICE A DAY INHALATION 06/28/2020 09:36 90MCG/1Act Inhalation Powder Prescription Detail 2 PUFF INHALATION TWICE A D AY Spironolactone 25MG Oral 447523 25 MILLIGRAMS DAILY ORAL 06/28/2020 09:36 Tablet Prescription Detail TAKE 25 MILLIGRAMS ORAL BETTY Y Torsemide 20MG Oral Tablet 643475 1 TABLET DAILY ORAL 06/28/2020 09:36 Prescription Detail TAKE 1 TABLET ORAL DAILY Vitamin D3 432438 0466 INTERNATIONAL UNITS DAILY ORAL 1 09:36 1000IU Oral Tablet Prescription Detail TAKE 1000 INTERNATIONAL UNIT S ORAL DAILY Ondansetron 4MG Oral 822161 4 MILLIGRAMS BEFORE MEALS ORAL 06/28/2020 09:35 Tablet, Disintegrating Prescription Detail TAKE 4 MILLIGRAMS ORAL BEFOR E MEALS predniSONE 5MG Oral 063774 5 MILLIGRAMS DAILY WITH FOOD ORAL 06/28/2020 09:35 Tablet Prescription Detail TAKE 5 MILLIGRAMS ORAL DAILY WITH FOOD Refresh Ophthalmic 659581 1 EACH NEEDED OPTHALMIC 0 10/20/2019 12:16 Solution Prescription Detail 1 EACH OPTHALMIC NEEDED Avastin 25MG/1ML Intravenous 7840252 E1RNAEZ IVPB 10/20/2019 12:15 Solution Prescription Detail IVPB [id number] Mapap 325MG Oral 003333 650 MILLIGRAMS NEEDED EVERY ORAL 10/20/2019 12:14 Tablet 4 HOURS Prescription Detail TAKE 650 MILLIGRAMS ORAL NEEDED EVERY 4 HOURS amLODIPine Besylate 10MG 244030 10 MILLIGRAMS DAILY ORAL 08/06/2019 11:13 Oral Tablet Prescription Detail TAKE 10 MILLIGRAMS ORAL BETTY Y Aspirin 81MG Oral Tablet, 879680 81 MILLIGRAMS DAILY ORAL 08/16/2018 10:22 Enteric Coated Prescription Detail TAKE 81 MILLIGRAMS ORAL BETTY Y Cymbalta 60MG Oral Capsule, 182614 60 MILLIGRAMS DAILY ORAL 08/16/2018 10:22 Delayed Release Prescription Detail TAKE 60 MILLIGRAMS ORAL BETTY Y Medications Administered During Visit Unknown or Not Available. Encounters Encounter Diagnosis Diagnosis Code Start Date Encounter for antineoplastic immunotherapy [id number] 05/09/2021 Social History Smoking Status Code Start Date End Date Current every day smoker [id number] Patient Decision Aids Unknown or Not Available. Discharge Instructions You were admitted to [facility] on 05/09/2021 11:09 with a principal diagnosis of Encounter for antineoplasti c immunotherapy You had the following tests done: CBC W / DIFFERENTIAL COMPREHENSIVE METABOLIC PANEL (CMP) MAGNESIUM SERUM You were discharged from [facility] on 05/09/2021 11:09 Should [...]
--- OUTSIDE RECORDS SUMMARY | 2022-04-22 14:11 | XMS_ITS | Encounter Summary ---
:1945 Author Organization [facility] Address [address] [place] [address] Care Team Providers Name Role Phone Unavailable Primary Care Provider Unavailable Encounter Details Date Type Department Care Team Description 06/24/2002 Hospital Encounter [facility]- Carey Howell MD [id number] [place] [phone] (Wo rk) Social History Tobacco Use Types [...]
--- OUTSIDE RECORDS SUMMARY | 2022-04-22 14:11 | XMS_ITS | CCD ---
:1945 Author Care Team Providers Name Role Phone RADHA VANN, CLEOPATRA Gómez Attending Physician Unavailable Vital Signs Unknown or Not Available. Allergies Allergy Code Allergy Type Reaction Status PENICILLINS (CLASS) 0 Drug allergy pt doesn't know Activ e TETRACYCLINE 33222 Drug allergy Active Procedures Unknown or Not Available. History of Immunizations Unknown or Not Available. Problems Problem Code Start Date Resolved Date Status CHRONIC AIRWAY OBSTRUCTION 56091069 A ctive HX OF BRONCHOGENIC MALIGNANCY 671654177 Active MULTIPLE SCLEROSIS 72000684 Active Hyperemesis 550171824 Active HTN 16939878 Active Acute respiratory failure with hypoxia 81185024 Active COPD with exacerbation 407507815 Activ e Cancer of lung 06565341 Active Acute CHF 49715508 Active Hypertension 88477116 Active Near syncope 708855461 Active Dehydration 11938436 Active High troponin I level 068879879 Active Acute exacerbation of COPD 400811688 08/07/2021 A ctive Results COMPREHENSIVE METABOLIC PANEL [...] 35 mmol/L L=22 H= 34 ANION GAP 78015-9 2.0 mmol/L CALCIUM SERUM 13256-4 9.7 mg/dL L=8.2 H=10.2 BILIRUBIN TOTAL 1975-2 0.4 mg/dL L=0.0 H=1.3 ALK. PHOS. 6768-6 155 U/L L=46 H=116 SGOT (AST) 1920-8 15 U/L L=15 H=37 SGPT (ALT) 1742-6 25 U/L L=12 H=78 TOTAL PROTEIN 2885-2 6.1 gm/dL L=6.0 H=8.0 ALBUMIN 1751-7 3.1 gm/dL L=3.4 H=5.0 AGE 75 years eGFR (non-Afr.Amer.) 87112-6 63 mL/min eGFR (Afr-Paraguayan) 16789-6 76 mL/min MAGNESIUM SERUM - Collect Date/Time: 09/2020 10:05 Test Name Code Test Result Test Units Test Ref Range MAGNESIUM 59224-3 1.8 mg/dL L=1.8 H=2.4 TSH THYROID STIMULATING HORMONE - [facility] Date/Time: 03/28/2021 10:05 Test Name Code Test Result Test Units Test Ref Range TSH 3014-8 0.998 uIU/mL L=0.360 H=3.740 CBC W/ DIFFERENTIAL - Collect Date/Time: 03/28/2021 10:05 Test Name Code Test Result Test Units Test Ref Range WBC 6690-2 7.19 th/cmm L=5.00 H=10.00 NEUT % 80.8 % L=40.0 H=80.0 LYMPH % 9.3 % L=10.0 H=50.0 MONO % 44552-6 7.6 % L=2.0 H=12.0 EOS % 1.3 % L=0.0 H=8.0 BASO % 0.7 % L=0.0 H=3.0 IG % 2514-8 0.3 % L=0.0 H=1.1 NRBC % 26388-9 0.0 % L=0.0 H=0.0 NEUT abs count 751-8 5.8 th/cmm L=1.6 H=8.4 LYMPH abs count 731-0 0.7 th/cmm L=1.5 H=4.0 MONO abs count 742-7 0.6 th/cmm L=0.2 H=1.0 EOS abs count 711-2 0.1 th/cmm L=0.0 H=0.5 BASO abs count 704-7 0.1 th/cmm L=0.0 H=0.2 IG abs count 07278-7 0.0 th/cmm L=0.0 H=0.1 NRBC abs count 42972-2 0.0 mil/cmm L=0.0 H=0.0 RBC 789-8 3.86 [...] Frequency Route Modification Start Date/Time predniSONE 10MG 373761 1 TABLET DAILY ORAL 08/07/20 21 Oral Tablet 15:21 Prescription Detail TAKE 5 TABS ORAL FOR 2 DAYS, THEN 4 TABS FOR 2 DAYS, THEN 3 TABS FOR 2 DAYS, THEN 2 TABS FOR 2 DAYS, THEN 1 TAB FOR 2 DAYS Ipratropium 7415659 1 NEEDED INHALATION 021 15:20 [place]-Albuterol Sulfate FOUR TIMES A 0.5MG/3ML-3MG/3ML DAY Inhalation Solution Prescription Detail 1 INHALATION NEEDED FOUR TIMES A DAY FOR Difficulty Breathing Acetaminophen 325MG 696820 650 MILLIGRAMS NEEDED ORAL 06/28/2020 09:36 Oral Tablet EVERY 4 HOURS Prescription Detail TAKE 650 MILLIGRAMS ORAL NEEDED EVERY 4 HOURS Amitriptyline HCl 50MG 548794 50 MILLIGRAMS BEDTIME ORAL 06/28/2020 09:36 Oral Tablet Prescription Detail TAKE 50 MILLIGRAMS ORAL BEDT МАРИЯ Atorvastatin Calcium 296780 20 MILLIGRAMS EVERY EVENING ORAL 06/28/2020 09:36 20MG Oral Tablet Prescription Detail TAKE 20 MILLIGRAMS ORAL EVER Y EVENING Budesonide 0.5MG/2ML 924129 1 EACH DAILY INHALATION 06/28/2020 09:36 Inhalation Suspension Prescription Detail 1 EACH INHALATION DAILY Cetirizine 10MG Oral 1656140 10 MILLIGRAMS BEDTIME ORAL 06/28/2020 09:36 Tablet Prescription Detail TAKE 10 MILLIGRAMS ORAL BEDT МАРИЯ Famotidine 20MG 463120 20 MILLIGRAMS NEEDED TWICE ORAL 06/28/2020 09:36 Oral Tablet DAILY Prescription Detail TAKE 20 MILLIGRAMS ORAL N EEDED TWICE DAILY Ipratropium 8080078 1 EACH NEEDED INHALATION 020 09:36 [place]-Albuterol Sulfate 0.5MG/3ML-3MG/3ML Inhalation Solution Prescription Detail 1 EACH INHALATION NEEDED Lidocaine-Prilocaine 943194 1 EACH NEEDED TOPICAL 1 2.5%-2.5% Topical APPLICATION 09 :36 application Cream Prescription Detail 1 EACH TOPICAL APPLICATION NEEDED Losartan Potassium 100MG 135650 100 MILLIGRAMS DAILY ORAL 06/28/2020 09:36 Oral Tablet Prescription Detail TAKE 100 MILLIGRAMS ORAL PARRIS LY Magnesium 500 MG Oral 827271 2 TABLET THREE TIMES A DAY ORAL 06/28/2020 09:36 Tablet Prescription Detail TAKE 2 TABLET ORAL THREE CELSO ES A DAY Morphine Sulfate 60MG 321381 60 MILLIGRAMS TWICE A DAY ORAL 06/28/2020 09:36 Oral Capsule, Extended Release Prescription Detail TAKE 60 MILLIGRAMS ORAL TWIC E A DAY Narcan 4MG/0.1ML Nasal [place] 9925760 1 EACH NEEDED NASAL 06/28/2020 09:36 Prescription Detail SPRAY 1 EACH NASAL NEEDED Omeprazole 40MG Oral 20021106 40 MILLIGRAMS DAILY ORAL 06/28/2020 09:36 Capsule, Delayed Release Prescription Detail TAKE 40 MILLIGRAMS ORAL BETTY Y Ondansetron 4MG Oral Tablet 925882 1 TABLET DAILY ORAL 06/28/2020 09:36 Prescription Detail TAKE 1 TABLET ORAL DAILY Polyethylene Glycol 27276983655 1 EACH NEEDED DAILY ORAL 06/28/2020 09:36 17GM/1Dose Oral Powder for Solution Prescription Detail TAKE 1 EACH ORAL NEEDED D AILY PreserVision Areds 2 NA 23894209610 2 CAPSULE DAILY ORAL 06/28/2020 09:36 Oral Capsule, Liquid Filled Prescription Detail TAKE 2 CAPSULE ORAL DAILY ProAir HFA 702075 2 PUFF NEEDED INHALATION 06/28/20 09:36 0.09MG/1Actuation THREE TIMES A Inhalation Suspension DAY Prescription Detail 2 PUFF INHALATION NEEDED THREE TIMES A DAY Pulmicort Flexhaler 538313 2 PUFF TWICE A DAY INHALATION 06/28/2020 09:36 90MCG/1Act Inhalation Powder Prescription Detail 2 PUFF INHALATION TWICE A D AY Spironolactone 25MG Oral 641547 25 MILLIGRAMS DAILY ORAL 06/28/2020 09:36 Tablet Prescription Detail TAKE 25 MILLIGRAMS ORAL BETTY Y Torsemide 20MG Oral Tablet 003017 1 TABLET DAILY ORAL 06/28/2020 09:36 Prescription Detail TAKE 1 TABLET ORAL DAILY Vitamin D3 367626 3362 INTERNATIONAL UNITS DAILY ORAL 1 09:36 1000IU Oral Tablet Prescription Detail TAKE 1000 INTERNATIONAL UNIT S ORAL DAILY Ondansetron 4MG Oral 499850 4 MILLIGRAMS BEFORE MEALS ORAL 06/28/2020 09:35 Tablet, Disintegrating Prescription Detail TAKE 4 MILLIGRAMS ORAL BEFOR E MEALS predniSONE 5MG Oral 756540 5 MILLIGRAMS DAILY WITH FOOD ORAL 06/28/2020 09:35 Tablet Prescription Detail TAKE 5 MILLIGRAMS ORAL DAILY WITH FOOD Refresh Ophthalmic 441958 1 EACH NEEDED OPTHALMIC 0 10/20/2019 12:16 Solution Prescription Detail 1 EACH OPTHALMIC NEEDED Avastin 25MG/1ML Intravenous 8884758 [id number] IVPB 10/20/2019 12:15 Solution Prescription Detail IVPB [id number] Mapap 325MG Oral 719103 650 MILLIGRAMS NEEDED EVERY ORAL 10/20/2019 12:14 Tablet 4 HOURS Prescription Detail TAKE 650 MILLIGRAMS ORAL NEEDED EVERY 4 HOURS amLODIPine Besylate 10MG 856304 10 MILLIGRAMS DAILY ORAL 08/06/2019 11:13 Oral Tablet Prescription Detail TAKE 10 MILLIGRAMS ORAL BETTY Y Aspirin 81MG Oral Tablet, 480543 81 MILLIGRAMS DAILY ORAL 08/16/2018 10:22 Enteric Coated Prescription Detail TAKE 81 MILLIGRAMS ORAL BETTY Y Cymbalta 60MG Oral Capsule, 700473 60 MILLIGRAMS DAILY ORAL 08/16/2018 10:22 Delayed Release Prescription Detail TAKE 60 MILLIGRAMS ORAL BETYT Y Medications Administered During Visit Unknown or Not Available. Encounters Encounter Diagnosis Diagnosis Code Start Date Encounter for antineoplastic immunotherapy [id number] 03/28/2021 Social History Smoking Status Code Start Date End Date Current every day smoker [id number] Patient Decision Aids Unknown or Not Available. Discharge Instructions You were admitted to [facility] on 03/28/2021 08:01 with a principal diagnosis of Encounter for antineoplasti c immunotherapy You had the following tests done: CBC W / DIFFERENTIAL COMPREHENSIVE METABOLIC PANEL (CMP) MAGNESIUM SERUM TSH THYROID STIMUL ATING HORMONE You were discharged from [facility] on 03/28/2021 08:01 Should you have [...]
--- OUTSIDE RECORDS SUMMARY | 2022-04-22 14:11 | XMS_ITS | Encounter Summary ---
:1945 Author Organization [facility] Address [address] [place] [address] Care Team Providers Name Role Phone Unavailable Primary Care Provider Unavailable Encounter Details Date Type Department Care Team Description 09/10/2006 Results Only [facility] Toby Martinez MD Interventional Radiology - [address] [phone] (Wo rk) Social History Tobacco Use [...] ? CARLY ALVARADO ? Accession #: ? [id number] : ? 1945 (Age: 61) ??F ?Collect Date: ? 08/28 Location: ? RAD ? Receive Date: ? 09/10/2006 Provider: ? JANUARY MARTINEZ MD Copy to: ?DARVIN MENDEZ MD ? Fine Needle Aspiratio n/Core Biopsy (Assisted) ? Radiology Department, [place] [address] ([facility]) ? Addendum ? Date Ordered: ? 09/18/2006 [...] eagents' ??performance characteristics have been determined by [facility]. ??This laboratory is certified unde r the Clinical Laboratory Improvement Amendments of 1988 (CLIA-88) as qualified to perform high complexity clinical laboratory testing. ?? Document reviewed and electronically signed by: ? GLADWYN LEIMAN MD [facility] ? Report date: 09/18/2006 By [...] done and reported on an addendum. ??(Dr. Chaudhary)/[facility] Document reviewed and electronically signed by: ? KEESHA CHAUDHARY MD [facility] Report Date: ??09/10/2006 17:02 By [...] pneumocytes + and mucus ++. (Mandy Paniagua, [facility]), Dr. Keesha Chaudhary; 09/10). Gross Description: ? 3 fixed prepared slid es and 1 tube of Cytolyt were received and processed by selective cellular enhancement technique. ? End of Report Specimen Performing Organization Address City/State/ZIP Code Phon e Number [facility] [address] [place] [address] [facility] [address] [place] [address] documented in this encounter Visit Diagnoses Not on filedocumented in this encounter
--- OUTSIDE RECORDS SUMMARY | 2022-04-22 14:11 | XMS_ITS | Encounter Summary ---
:1945 Author Organization [facility] Address [address] [place] [address] Care Team Providers Name Role Phone Unavailable Primary Care Provider Unavailable Encounter Details Date Type Department Care Team Description 04/11/2004 Hospital Encounter [facility] Tomas Mendoza [facility] DO 111 [facility] [address] [place] [address] [place] [address] (Wo rk) Social History Tobacco Use Types [...] Organization Address City/State/ZIP Code Phon e Number [facility] 111 [facility], [facility] [address] [facility] [address] [place], [place] [address] documented in this encounter Visit Diagnoses Not on filedocumented in this encounter
--- OUTSIDE RECORDS SUMMARY | 2022-04-22 14:11 | XMS_ITS | Encounter Summary ---
:1945 Author Organization [facility] Address [address] [place] [address] Care Team Providers Name Role Phone Unavailable Primary Care Provider Unavailable Encounter Details Date Type Department Care Team Description 10/12/2006 Hospital Encounter [facility] - Deric Mendez MD 111 [facility] [address] [place] [address] [address] [place] [id number] (Wo rk) Social History Tobacco Use Types [...] le out metastasis. COMPARISON: ??Outside CT from [facility] was n ot available for review at [...] o ut metastasis. COMPARISON: Outside CT from [facility] was not available for review at the time of this dictation. TECHNIQUE: Approximately one hour following the IV injection of 15.5 mCi of F-18 Fluorodeoxyglucose, 3D PET imaging was o btained from the head to the upper thighs using a combined PET /CT EternoGen ST system with dedicated closed ring PET [...] City/State/ZIP Code Phon e Number [facility] [address] [facility] [place] [address] [facility] [address] [place], [place] [address] documented in this encounter Visit Diagnoses Not on filedocumented in this encounter
--- OUTSIDE RECORDS SUMMARY | 2022-04-22 14:11 | XMS_ITS | CCD ---
:1945 Author Care Team Providers Name Role Phone RADHA VANN, CLEOPATRA Gómez Attending Physician Unavailable Vital Signs Unknown or Not Available. Allergies Allergy Code Allergy Type Reaction Status PENICILLINS (CLASS) 0 Drug allergy pt doesn't know Activ e TETRACYCLINE 21491 Drug allergy Active Procedures Unknown or Not Available. History of Immunizations Unknown or Not Available. Problems Problem Code Start Date Resolved Date Status CHRONIC AIRWAY OBSTRUCTION 72461525 A ctive HX OF BRONCHOGENIC MALIGNANCY 143273474 Active MULTIPLE SCLEROSIS 93820665 Active Hyperemesis 798888279 Active HTN 44921271 Active Acute respiratory failure with hypoxia 94844278 Active COPD with exacerbation 136837852 Activ e Cancer of lung 47092000 Active Acute CHF 41183772 Active Hypertension 42178157 Active Near syncope 016350394 Active Dehydration 27643092 Active High troponin I level 166881598 Active Acute exacerbation of COPD 664487324 08/07/2021 A ctive Results COMPREHENSIVE METABOLIC PANEL [...] 34 mmol/L L=22 H= 34 ANION GAP 71679-4 3.7 mmol/L CALCIUM SERUM 43031-5 9.7 mg/dL L=8.2 H=10.2 BILIRUBIN TOTAL 1975-2 0.3 mg/dL L=0.0 H=1.3 ALK. PHOS. 6768-6 135 U/L L=46 H=116 SGOT (AST) 1920-8 12 U/L L=15 H=37 SGPT (ALT) 1742-6 15 U/L L=12 H=78 TOTAL PROTEIN 2885-2 6.3 gm/dL L=6.0 H=8.0 ALBUMIN 1751-7 3.1 gm/dL L=3.4 H=5.0 AGE 75 years eGFR (non-Afr.Amer.) 74426-2 67 mL/min eGFR (Afr-Austrian) 85404-4 81 mL/min MAGNESIUM SERUM - Collect Date/Time: 10:00 Test Name Code Test Result Test Units Test Ref Range MAGNESIUM 02305-7 1.6 mg/dL L=1.8 H=2.4 TSH THYROID STIMULATING HORMONE - [facility] Date/Time: 04/18/2021 10:00 Test Name Code Test Result Test Units Test Ref Range TSH 3014-8 1.526 uIU/mL L=0.360 H=3.740 CBC W/ DIFFERENTIAL - Collect Date/Time: 04/18/2021 10:00 Test Name Code Test Result Test Units Test Ref Range WBC 6690-2 7.64 th/cmm L=5.00 H=10.00 NEUT % 78.2 % L=40.0 H=80.0 LYMPH % 9.9 % L=10.0 H=50.0 MONO % 42498-3 9.7 % L=2.0 H=12.0 EOS % 1.3 % L=0.0 H=8.0 BASO % 0.8 % L=0.0 H=3.0 IG % 2514-8 0.1 % L=0.0 H=1.1 NRBC % 28076-7 0.0 % L=0.0 H=0.0 NEUT abs count 751-8 6.0 th/cmm L=1.6 H=8.4 LYMPH abs count 731-0 0.8 th/cmm L=1.5 H=4.0 MONO abs count 742-7 0.7 th/cmm L=0.2 H=1.0 EOS abs count 711-2 0.1 th/cmm L=0.0 H=0.5 BASO abs count 704-7 0.1 th/cmm L=0.0 H=0.2 IG abs count 65125-5 0.0 th/cmm L=0.0 H=0.1 NRBC abs count 35347-5 0.0 mil/cmm L=0.0 H=0.0 RBC 789-8 3.66 [...] Frequency Route Modification Start Date/Time predniSONE 10MG 403506 1 TABLET DAILY ORAL 08/07/20 21 Oral Tablet 15:21 Prescription Detail TAKE 5 TABS ORAL FOR 2 DAYS, THEN 4 TABS FOR 2 DAYS, THEN 3 TABS FOR 2 DAYS, THEN 2 TABS FOR 2 DAYS, THEN 1 TAB FOR 2 DAYS Ipratropium 9519344 1 NEEDED INHALATION 021 15:20 [place]-Albuterol Sulfate FOUR TIMES A 0.5MG/3ML-3MG/3ML DAY Inhalation Solution Prescription Detail 1 INHALATION NEEDED FOUR TIMES A DAY FOR Difficulty Breathing Acetaminophen 325MG 717517 650 MILLIGRAMS NEEDED ORAL 06/28/2020 09:36 Oral Tablet EVERY 4 HOURS Prescription Detail TAKE 650 MILLIGRAMS ORAL NEEDED EVERY 4 HOURS Amitriptyline HCl 50MG 649238 50 MILLIGRAMS BEDTIME ORAL 06/28/2020 09:36 Oral Tablet Prescription Detail TAKE 50 MILLIGRAMS ORAL BEDT МАРИЯ Atorvastatin Calcium 510777 20 MILLIGRAMS EVERY EVENING ORAL 06/28/2020 09:36 20MG Oral Tablet Prescription Detail TAKE 20 MILLIGRAMS ORAL EVER Y EVENING Budesonide 0.5MG/2ML 366589 1 EACH DAILY INHALATION 06/28/2020 09:36 Inhalation Suspension Prescription Detail 1 EACH INHALATION DAILY Cetirizine 10MG Oral 7767615 10 MILLIGRAMS BEDTIME ORAL 06/28/2020 09:36 Tablet Prescription Detail TAKE 10 MILLIGRAMS ORAL BEDT МАРИЯ Famotidine 20MG 630166 20 MILLIGRAMS NEEDED TWICE ORAL 06/28/2020 09:36 Oral Tablet DAILY Prescription Detail TAKE 20 MILLIGRAMS ORAL N EEDED TWICE DAILY Ipratropium 4952498 1 EACH NEEDED INHALATION 020 09:36 [place]-Albuterol Sulfate 0.5MG/3ML-3MG/3ML Inhalation Solution Prescription Detail 1 EACH INHALATION NEEDED Lidocaine-Prilocaine 365503 1 EACH NEEDED TOPICAL 1 2.5%-2.5% Topical APPLICATION 09 :36 application Cream Prescription Detail 1 EACH TOPICAL APPLICATION NEEDED Losartan Potassium 100MG 647095 100 MILLIGRAMS DAILY ORAL 06/28/2020 09:36 Oral Tablet Prescription Detail TAKE 100 MILLIGRAMS ORAL PARRIS LY Magnesium 500 MG Oral 730942 2 TABLET THREE TIMES A DAY ORAL 06/28/2020 09:36 Tablet Prescription Detail TAKE 2 TABLET ORAL THREE CELSO ES A DAY Morphine Sulfate 60MG 648610 60 MILLIGRAMS TWICE A DAY ORAL 06/28/2020 09:36 Oral Capsule, Extended Release Prescription Detail TAKE 60 MILLIGRAMS ORAL TWIC E A DAY Narcan 4MG/0.1ML Nasal [place] 8510119 1 EACH NEEDED NASAL 06/28/2020 09:36 Prescription Detail SPRAY 1 EACH NASAL NEEDED Omeprazole 40MG Oral 20021106 40 MILLIGRAMS DAILY ORAL 06/28/2020 09:36 Capsule, Delayed Release Prescription Detail TAKE 40 MILLIGRAMS ORAL BETTY Y Ondansetron 4MG Oral Tablet 741681 1 TABLET DAILY ORAL 06/28/2020 09:36 Prescription Detail TAKE 1 TABLET ORAL DAILY Polyethylene Glycol 02703014875 1 EACH NEEDED DAILY ORAL 06/28/2020 09:36 17GM/1Dose Oral Powder for Solution Prescription Detail TAKE 1 EACH ORAL NEEDED D AILY PreserVision Areds 2 NA 13097353324 2 CAPSULE DAILY ORAL 06/28/2020 09:36 Oral Capsule, Liquid Filled Prescription Detail TAKE 2 CAPSULE ORAL DAILY ProAir HFA 857886 2 PUFF NEEDED INHALATION 06/28/20 09:36 0.09MG/1Actuation THREE TIMES A Inhalation Suspension DAY Prescription Detail 2 PUFF INHALATION NEEDED THREE TIMES A DAY Pulmicort Flexhaler 868973 2 PUFF TWICE A DAY INHALATION 06/28/2020 09:36 90MCG/1Act Inhalation Powder Prescription Detail 2 PUFF INHALATION TWICE A D AY Spironolactone 25MG Oral 463677 25 MILLIGRAMS DAILY ORAL 06/28/2020 09:36 Tablet Prescription Detail TAKE 25 MILLIGRAMS ORAL BETTY Y Torsemide 20MG Oral Tablet 940644 1 TABLET DAILY ORAL 06/28/2020 09:36 Prescription Detail TAKE 1 TABLET ORAL DAILY Vitamin D3 286708 5207 INTERNATIONAL UNITS DAILY ORAL 1 09:36 1000IU Oral Tablet Prescription Detail TAKE 1000 INTERNATIONAL UNIT S ORAL DAILY Ondansetron 4MG Oral 858682 4 MILLIGRAMS BEFORE MEALS ORAL 06/28/2020 09:35 Tablet, Disintegrating Prescription Detail TAKE 4 MILLIGRAMS ORAL BEFOR E MEALS predniSONE 5MG Oral 565730 5 MILLIGRAMS DAILY WITH FOOD ORAL 06/28/2020 09:35 Tablet Prescription Detail TAKE 5 MILLIGRAMS ORAL DAILY WITH FOOD Refresh Ophthalmic 248928 1 EACH NEEDED OPTHALMIC 0 10/20/2019 12:16 Solution Prescription Detail 1 EACH OPTHALMIC NEEDED Avastin 25MG/1ML Intravenous 5116685 [id number] IVPB 10/20/2019 12:15 Solution Prescription Detail IVPB [id number] Mapap 325MG Oral 525165 650 MILLIGRAMS NEEDED EVERY ORAL 10/20/2019 12:14 Tablet 4 HOURS Prescription Detail TAKE 650 MILLIGRAMS ORAL NEEDED EVERY 4 HOURS amLODIPine Besylate 10MG 199697 10 MILLIGRAMS DAILY ORAL 08/06/2019 11:13 Oral Tablet Prescription Detail TAKE 10 MILLIGRAMS ORAL BETTY Y Aspirin 81MG Oral Tablet, 508261 81 MILLIGRAMS DAILY ORAL 08/16/2018 10:22 Enteric Coated Prescription Detail TAKE 81 MILLIGRAMS ORAL BETTY Y Cymbalta 60MG Oral Capsule, 622771 60 MILLIGRAMS DAILY ORAL 08/16/2018 10:22 Delayed Release Prescription Detail TAKE 60 MILLIGRAMS ORAL BETTY Y Medications Administered During Visit Unknown or Not Available. Encounters Encounter Diagnosis Diagnosis Code Start Date Encounter for antineoplastic immunotherapy [id number] 04/18/2021 Social History Smoking Status Code Start Date End Date Current every day smoker [id number] Patient Decision Aids Unknown or Not Available. Discharge Instructions You were admitted to [facility] on 04/18/2021 10:21 with a principal diagnosis of Encounter for antineoplasti c immunotherapy You had the following tests done: CBC W / DIFFERENTIAL COMPREHENSIVE METABOLIC PANEL (CMP) MAGNESIUM SERUM TSH THYROID STIMUL ATING HORMONE You were discharged from [facility] 01 on 04/18/2021 10:21 Should you have [...]
--- OUTSIDE RECORDS SUMMARY | 2022-04-22 14:11 | XMS_ITS | Encounter Summary ---
:1945 Author Organization [facility] Address [address] [place] [address] Care Team Providers Name Role Phone Unavailable Primary Care Provider Unavailable Encounter Details Date Type Department Care Team Description 09/10/2006 Hospital Encounter [facility] Darvin Mendez Radiology - Main Abelardo Pimentel MD 111 [facility] [address] [place] [address] [address] [place] [address] (Wo rk) Social History Tobacco [...] position, the coaxial needle was advanced the jnu phery of the nodule. Following this, two [...] Organization Address City/State/ZIP Code Phon e Number [facility] [address] [facility] [address] [facility] [address] [place], [place] [address] documented in this encounter Visit Diagnoses Not on filedocumented in this encounter
--- OUTSIDE RECORDS SUMMARY | 2022-04-22 14:11 | XMS_ITS | CCD ---
:1945 Author Care Team Providers Name Role Phone RADHA VANN, CLEOPATRA Gómez Attending Physician Unavailable Vital Signs Unknown or Not Available. Allergies Allergy Code Allergy Type Reaction Status PENICILLINS (CLASS) 0 Drug allergy pt doesn't know Activ e TETRACYCLINE 60772 Drug allergy Active Procedures Unknown or Not Available. History of Immunizations Unknown or Not Available. Problems Problem Code Start Date Resolved Date Status CHRONIC AIRWAY OBSTRUCTION 69156140 A ctive HX OF BRONCHOGENIC MALIGNANCY 218036421 Active MULTIPLE SCLEROSIS 30742377 Active Hyperemesis 334515863 Active HTN 75031304 Active Acute respiratory failure with hypoxia 67999094 Active COPD with exacerbation 692426077 Activ e Cancer of lung 88288167 Active Acute CHF 90607406 Active Hypertension 75587425 Active Near syncope 608405680 Active Dehydration 56505396 Active High troponin I level 980482446 Active Acute exacerbation of COPD 780032667 08/07/2021 A ctive Results Unknown or Not Available. Active Medications Medication Code Dose Units Frequency Route Modification Start Date/Time predniSONE 10MG 414827 1 TABLET DAILY ORAL 08/07/20 21 Oral Tablet 15:21 Prescription Detail TAKE 5 TABS ORAL FOR 2 DAYS, THEN 4 TABS FOR 2 DAYS, THEN 3 TABS FOR 2 DAYS, THEN 2 TABS FOR 2 DAYS, THEN 1 TAB FOR 2 DAYS Ipratropium 6141779 1 NEEDED INHALATION 021 15:20 [place]-Albuterol Sulfate FOUR TIMES A 0.5MG/3ML-3MG/3ML DAY Inhalation Solution Prescription Detail 1 INHALATION NEEDED FOUR TIMES A DAY FOR Difficulty Breathing Acetaminophen 325MG 282044 650 MILLIGRAMS NEEDED ORAL 06/28/2020 09:36 Oral Tablet EVERY 4 HOURS Prescription Detail TAKE 650 MILLIGRAMS ORAL NEEDED EVERY 4 HOURS Amitriptyline HCl 50MG 645823 50 MILLIGRAMS BEDTIME ORAL 06/28/2020 09:36 Oral Tablet Prescription Detail TAKE 50 MILLIGRAMS ORAL BEDT МАРИЯ Atorvastatin Calcium 377427 20 MILLIGRAMS EVERY EVENING ORAL 06/28/2020 09:36 20MG Oral Tablet Prescription Detail TAKE 20 MILLIGRAMS ORAL EVER Y EVENING Budesonide 0.5MG/2ML 432389 1 EACH DAILY INHALATION 06/28/2020 09:36 Inhalation Suspension Prescription Detail 1 EACH INHALATION DAILY Cetirizine 10MG Oral 8304259 10 MILLIGRAMS BEDTIME ORAL 06/28/2020 09:36 Tablet Prescription Detail TAKE 10 MILLIGRAMS ORAL BEDT МАРИЯ Famotidine 20MG 569304 20 MILLIGRAMS NEEDED TWICE ORAL 06/28/2020 09:36 Oral Tablet DAILY Prescription Detail TAKE 20 MILLIGRAMS ORAL N EEDED TWICE DAILY Ipratropium 2131011 1 EACH NEEDED INHALATION 020 09:36 [place]-Albuterol Sulfate 0.5MG/3ML-3MG/3ML Inhalation Solution Prescription Detail 1 EACH INHALATION NEEDED Lidocaine-Prilocaine 573651 1 EACH NEEDED TOPICAL 1 2.5%-2.5% Topical APPLICATION 09 :36 application Cream Prescription Detail 1 EACH TOPICAL APPLICATION NEEDED Losartan Potassium 100MG 610689 100 MILLIGRAMS DAILY ORAL 06/28/2020 09:36 Oral Tablet Prescription Detail TAKE 100 MILLIGRAMS ORAL PARRIS LY Magnesium 500 MG Oral 280734 2 TABLET THREE TIMES A DAY ORAL 06/28/2020 09:36 Tablet Prescription Detail TAKE 2 TABLET ORAL THREE CELSO ES A DAY Morphine Sulfate 60MG 760298 60 MILLIGRAMS TWICE A DAY ORAL 06/28/2020 09:36 Oral Capsule, Extended Release Prescription Detail TAKE 60 MILLIGRAMS ORAL TWIC E A DAY Narcan 4MG/0.1ML Nasal [place] 1448131 1 EACH NEEDED NASAL 06/28/2020 09:36 Prescription Detail SPRAY 1 EACH NASAL NEEDED Omeprazole 40MG Oral 20021106 40 MILLIGRAMS DAILY ORAL 06/28/2020 09:36 Capsule, Delayed Release Prescription Detail TAKE 40 MILLIGRAMS ORAL BETTY Y Ondansetron 4MG Oral Tablet 604907 1 TABLET DAILY ORAL 06/28/2020 09:36 Prescription Detail TAKE 1 TABLET ORAL DAILY Polyethylene Glycol 27616832180 1 EACH NEEDED DAILY ORAL 06/28/2020 09:36 17GM/1Dose Oral Powder for Solution Prescription Detail TAKE 1 EACH ORAL NEEDED D AILY PreserVision Areds 2 NA 53745668997 2 CAPSULE DAILY ORAL 06/28/2020 09:36 Oral Capsule, Liquid Filled Prescription Detail TAKE 2 CAPSULE ORAL DAILY ProAir HFA 919398 2 PUFF NEEDED INHALATION 06/28/20 09:36 0.09MG/1Actuation THREE TIMES A Inhalation Suspension DAY Prescription Detail 2 PUFF INHALATION NEEDED THREE TIMES A DAY Pulmicort Flexhaler 134774 2 PUFF TWICE A DAY INHALATION 06/28/2020 09:36 90MCG/1Act Inhalation Powder Prescription Detail 2 PUFF INHALATION TWICE A D AY Spironolactone 25MG Oral 480783 25 MILLIGRAMS DAILY ORAL 06/28/2020 09:36 Tablet Prescription Detail TAKE 25 MILLIGRAMS ORAL BETTY Y Torsemide 20MG Oral Tablet 118758 1 TABLET DAILY ORAL 06/28/2020 09:36 Prescription Detail TAKE 1 TABLET ORAL DAILY Vitamin D3 666176 3008 INTERNATIONAL UNITS DAILY ORAL 1 09:36 1000IU Oral Tablet Prescription Detail TAKE 1000 INTERNATIONAL UNIT S ORAL DAILY Ondansetron 4MG Oral 822535 4 MILLIGRAMS BEFORE MEALS ORAL 06/28/2020 09:35 Tablet, Disintegrating Prescription Detail TAKE 4 MILLIGRAMS ORAL BEFOR E MEALS predniSONE 5MG Oral 914170 5 MILLIGRAMS DAILY WITH FOOD ORAL 06/28/2020 09:35 Tablet Prescription Detail TAKE 5 MILLIGRAMS ORAL DAILY WITH FOOD Refresh Ophthalmic 600857 1 EACH NEEDED OPTHALMIC 0 10/20/2019 12:16 Solution Prescription Detail 1 EACH OPTHALMIC NEEDED Avastin 25MG/1ML Intravenous 5515061 L1HBFNT IVPB 10/20/2019 12:15 Solution Prescription Detail IVPB [id number] Mapap 325MG Oral 326387 650 MILLIGRAMS NEEDED EVERY ORAL 10/20/2019 12:14 Tablet 4 HOURS Prescription Detail TAKE 650 MILLIGRAMS ORAL NEEDED EVERY 4 HOURS amLODIPine Besylate 10MG 180563 10 MILLIGRAMS DAILY ORAL 08/06/2019 11:13 Oral Tablet Prescription Detail TAKE 10 MILLIGRAMS ORAL BETTY Y Aspirin 81MG Oral Tablet, 796168 81 MILLIGRAMS DAILY ORAL 08/16/2018 10:22 Enteric Coated Prescription Detail TAKE 81 MILLIGRAMS ORAL BETTY Y Cymbalta 60MG Oral Capsule, 530396 60 MILLIGRAMS DAILY ORAL 08/16/2018 10:22 Delayed Release Prescription Detail TAKE 60 MILLIGRAMS ORAL BETTY Y Medications Administered During Visit Unknown or Not Available. Encounters Encounter Diagnosis Diagnosis Code Start Date Procedure and treatment not carried out because of [id number] 03/20/2021 patient's decision for other reasons Social History Smoking Status Code Start Date End Date Current every day smoker [id number] Patient Decision Aids Unknown or Not Available. Discharge Instructions You were admitted to [facility] on 03/20/2021 09:16 with a principal diagnosis of Procedure and treatment not carried out because of patient's decision for other reasons You were discharged from [facility] on 03/20/2021 09:16 Should you [...]
--- OUTSIDE RECORDS SUMMARY | 2022-04-22 14:11 | XMS_ITS | CCD ---
:1945 Author Care Team Providers Name Role Phone RADHA VANN, CLEOPATRA Gómez Attending Physician Unavailable Vital Signs Unknown or Not Available. Allergies Allergy Code Allergy Type Reaction Status PENICILLINS (CLASS) 0 Drug allergy pt doesn't know Activ e TETRACYCLINE 36778 Drug allergy Active Procedures Unknown or Not Available. History of Immunizations Unknown or Not Available. Problems Problem Code Start Date Resolved Date Status CHRONIC AIRWAY OBSTRUCTION 87150744 A ctive HX OF BRONCHOGENIC MALIGNANCY 259980286 Active MULTIPLE SCLEROSIS 38563085 Active Hyperemesis 409437585 Active HTN 06656267 Active Acute respiratory failure with hypoxia 19353985 Active COPD with exacerbation 925489021 Activ e Cancer of lung 86029275 Active Acute CHF 46497843 Active Hypertension 52766169 Active Near syncope 431437346 Active Dehydration 62967544 Active High troponin I level 865860752 Active Acute exacerbation of COPD 214062957 08/07/2021 A ctive Results Unknown or Not Available. Active Medications Medication Code Dose Units Frequency Route Modification Start Date/Time predniSONE 10MG 359803 1 TABLET DAILY ORAL 08/07/20 21 Oral Tablet 15:21 Prescription Detail TAKE 5 TABS ORAL FOR 2 DAYS, THEN 4 TABS FOR 2 DAYS, THEN 3 TABS FOR 2 DAYS, THEN 2 TABS FOR 2 DAYS, THEN 1 TAB FOR 2 DAYS Ipratropium 9418589 1 NEEDED INHALATION 021 15:20 [place]-Albuterol Sulfate FOUR TIMES A 0.5MG/3ML-3MG/3ML DAY Inhalation Solution Prescription Detail 1 INHALATION NEEDED FOUR TIMES A DAY FOR Difficulty Breathing Acetaminophen 325MG 309215 650 MILLIGRAMS NEEDED ORAL 06/28/2020 09:36 Oral Tablet EVERY 4 HOURS Prescription Detail TAKE 650 MILLIGRAMS ORAL NEEDED EVERY 4 HOURS Amitriptyline HCl 50MG 352791 50 MILLIGRAMS BEDTIME ORAL 06/28/2020 09:36 Oral Tablet Prescription Detail TAKE 50 MILLIGRAMS ORAL BEDT МАРИЯ Atorvastatin Calcium 370794 20 MILLIGRAMS EVERY EVENING ORAL 06/28/2020 09:36 20MG Oral Tablet Prescription Detail TAKE 20 MILLIGRAMS ORAL EVER Y EVENING Budesonide 0.5MG/2ML 238363 1 EACH DAILY INHALATION 06/28/2020 09:36 Inhalation Suspension Prescription Detail 1 EACH INHALATION DAILY Cetirizine 10MG Oral 1337529 10 MILLIGRAMS BEDTIME ORAL 06/28/2020 09:36 Tablet Prescription Detail TAKE 10 MILLIGRAMS ORAL BEDT МАРИЯ Famotidine 20MG 473256 20 MILLIGRAMS NEEDED TWICE ORAL 06/28/2020 09:36 Oral Tablet DAILY Prescription Detail TAKE 20 MILLIGRAMS ORAL N EEDED TWICE DAILY Ipratropium 7493911 1 EACH NEEDED INHALATION 020 09:36 [place]-Albuterol Sulfate 0.5MG/3ML-3MG/3ML Inhalation Solution Prescription Detail 1 EACH INHALATION NEEDED Lidocaine-Prilocaine 962045 1 EACH NEEDED TOPICAL 1 2.5%-2.5% Topical APPLICATION 09 :36 application Cream Prescription Detail 1 EACH TOPICAL APPLICATION NEEDED Losartan Potassium 100MG 083144 100 MILLIGRAMS DAILY ORAL 06/28/2020 09:36 Oral Tablet Prescription Detail TAKE 100 MILLIGRAMS ORAL PARRIS LY Magnesium 500 MG Oral 190287 2 TABLET THREE TIMES A DAY ORAL 06/28/2020 09:36 Tablet Prescription Detail TAKE 2 TABLET ORAL THREE CELSO ES A DAY Morphine Sulfate 60MG 266159 60 MILLIGRAMS TWICE A DAY ORAL 06/28/2020 09:36 Oral Capsule, Extended Release Prescription Detail TAKE 60 MILLIGRAMS ORAL TWIC E A DAY Narcan 4MG/0.1ML Nasal [place] 3994818 1 EACH NEEDED NASAL 06/28/2020 09:36 Prescription Detail SPRAY 1 EACH NASAL NEEDED Omeprazole 40MG Oral 20021106 40 MILLIGRAMS DAILY ORAL 06/28/2020 09:36 Capsule, Delayed Release Prescription Detail TAKE 40 MILLIGRAMS ORAL BETTY Y Ondansetron 4MG Oral Tablet 718867 1 TABLET DAILY ORAL 06/28/2020 09:36 Prescription Detail TAKE 1 TABLET ORAL DAILY Polyethylene Glycol 28026898551 1 EACH NEEDED DAILY ORAL 06/28/2020 09:36 17GM/1Dose Oral Powder for Solution Prescription Detail TAKE 1 EACH ORAL NEEDED D AILY PreserVision Areds 2 NA 11776600866 2 CAPSULE DAILY ORAL 06/28/2020 09:36 Oral Capsule, Liquid Filled Prescription Detail TAKE 2 CAPSULE ORAL DAILY ProAir HFA 296940 2 PUFF NEEDED INHALATION 06/28/20 09:36 0.09MG/1Actuation THREE TIMES A Inhalation Suspension DAY Prescription Detail 2 PUFF INHALATION NEEDED THREE TIMES A DAY Pulmicort Flexhaler 341258 2 PUFF TWICE A DAY INHALATION 06/28/2020 09:36 90MCG/1Act Inhalation Powder Prescription Detail 2 PUFF INHALATION TWICE A D AY Spironolactone 25MG Oral 645811 25 MILLIGRAMS DAILY ORAL 06/28/2020 09:36 Tablet Prescription Detail TAKE 25 MILLIGRAMS ORAL BETTY Y Torsemide 20MG Oral Tablet 987152 1 TABLET DAILY ORAL 06/28/2020 09:36 Prescription Detail TAKE 1 TABLET ORAL DAILY Vitamin D3 426969 4682 INTERNATIONAL UNITS DAILY ORAL 1 09:36 1000IU Oral Tablet Prescription Detail TAKE 1000 INTERNATIONAL UNIT S ORAL DAILY Ondansetron 4MG Oral 422459 4 MILLIGRAMS BEFORE MEALS ORAL 06/28/2020 09:35 Tablet, Disintegrating Prescription Detail TAKE 4 MILLIGRAMS ORAL BEFOR E MEALS predniSONE 5MG Oral 046331 5 MILLIGRAMS DAILY WITH FOOD ORAL 06/28/2020 09:35 Tablet Prescription Detail TAKE 5 MILLIGRAMS ORAL DAILY WITH FOOD Refresh Ophthalmic 185616 1 EACH NEEDED OPTHALMIC 0 10/20/2019 12:16 Solution Prescription Detail 1 EACH OPTHALMIC NEEDED Avastin 25MG/1ML Intravenous 0831826 Q2QDELV IVPB 10/20/2019 12:15 Solution Prescription Detail IVPB [id number] Mapap 325MG Oral 334413 650 MILLIGRAMS NEEDED EVERY ORAL 10/20/2019 12:14 Tablet 4 HOURS Prescription Detail TAKE 650 MILLIGRAMS ORAL NEEDED EVERY 4 HOURS amLODIPine Besylate 10MG 790001 10 MILLIGRAMS DAILY ORAL 08/06/2019 11:13 Oral Tablet Prescription Detail TAKE 10 MILLIGRAMS ORAL BETTY Y Aspirin 81MG Oral Tablet, 121268 81 MILLIGRAMS DAILY ORAL 08/16/2018 10:22 Enteric Coated Prescription Detail TAKE 81 MILLIGRAMS ORAL BETTY Y Cymbalta 60MG Oral Capsule, 234936 60 MILLIGRAMS DAILY ORAL 08/16/2018 10:22 Delayed Release Prescription Detail TAKE 60 MILLIGRAMS ORAL BETTY Y Medications Administered During Visit Unknown or Not Available. Encounters Encounter Diagnosis Diagnosis Code Start Date Malignant neoplasm of upper lobe, left bronchus or lung C341 2 06/05/2021 Social History Smoking Status Code Start Date End Date Current every day smoker [id number] Patient Decision Aids Unknown or Not Available. Discharge Instructions You were admitted to [facility] on 06/05/2021 11:20 with a principal diagnosis of Malignant neoplasm of upper lobe, left bronchus or lung You were discharged from [facility] on 06/05/2021 11:20 Should you have any questions prior to d ischarge, please contact a member of your healthcare team. If you have left the [facility] and have any questions, please contact your primary care physician. Chief Complaint and Reason For Visit Unknown or Not Available. Function Status Unknown or Not Available. Plan of Care Unknown or Not Available. Referral/Transition of Care Unknown or Not Available.
--- OUTSIDE RECORDS SUMMARY | 2022-04-22 14:11 | XMS_ITS | Encounter Summary ---
:1945 Author Organization [facility] Address [address] [place] [address] Care Team Providers Name Role Phone Unavailable Primary Care Provider Unavailable Encounter Details Date Type Department Care Team Description 02/17/2006 Results Only [facility] - Deric Rosa, conversion MD [address] [facility] [address] [place] [address] [address] [place] [address] (Wo rk) Social History Tobacco [...] ? CARLY ALVARADO ? Accession #: ? [id number] : ? 1945 (Age: 60) ??F ?Collect Date: ? 01/27 Location: ? RAD ? Receive Date: ? 02/18/2006 Provider: ? FELIZ STOUT MD Copy to: ?JANUARY CALDERÓN MD DAMON I* BELLE STOUT MD ? Fine Needle Aspiratio n/Core Biopsy (Assisted) ? Radiology Department, [place] [address] ([facility]) ? CYTOLOGIC DIAGNOSIS: ? Lung, right lower lobe nodule, CT-guided fine n eedle aspiration: - Non-diagnostic pattern. ??See comment. ? COMMENT: ? The specimen consists predominantly of blood an d hemosiderin-laden macrophages with rare benign bronchial e pithelial cells present and occasional discohesive, mucinous-type, bland-appearing epithelial cells seen on the ThinPrep slide. ??The low cellularity pr ecludes a definitive diagnosis. ??(Dr. López)/[facility] Document reviewed and electronically signed by: [...] Organization Address City/State/ZIP Code Phon e Number [facility] [address] [place] [address] SERVICES [facility] [address] [place] [address] documented in this encounter Visit Diagnoses Not on filedocumented in this encounter
--- OUTSIDE RECORDS SUMMARY | 2022-04-22 14:11 | XMS_ITS | Encounter Summary ---
:1945 Author Organization [facility] Address [address] [place] [address] Care Team Providers Name Role Phone Unavailable Primary Care Provider Unavailable Encounter Details Date Type Department Care Team Description 02/17/2006 Hospital Encounter [facility] Darvin Mendez Radiology - Main Abelardo Pimentel MD [address] [facility] [address] [place] [address] [address] [place] [address] (Wo rk) Social History Tobacco [...] LAB Report Status Final [facility] [id number] Specimen Performing Organization Address City/State/ZIP Code Phon e Number [facility] [address] [place] [address] SERVICES [facility] [address] [place] [address] AFB CULTURE/SMEAR, OTHER (02/17/2006 17:42 EDT) Specimen Description Fluid [facility] >1ml Acid Fast No acid-fast [facility] bacilli seen Result No acid-fast [facility] bacilli isolated Report Status Final [facility] [id number] Specimen Performing Organization Address City/[facility]/ZIP Code Phon e Number [facility] [address] [place] [address] SERVICES [facility] [address] [place] [address] ANAEROBE CULTURE/SMEAR(INC. AEROBES), FLUID (02/17/2006 17:42 EDT) Specimen Description Fluid [facility] <1ml lung biopsy LAB Gram Smear Result No polys seen [facility] No mononuclear cells seen. LAB No bacteria seen Result No growth [facility] Report Status Final [facility] [id number] LAB Specimen Performing Organization Address City/[facility]/ZIP Code Phon e Number [facility] [address] [place] [address] SERVICES [facility] [address] [place] [address] documented in this encounter Visit Diagnoses Not on filedocumented in this encounter
--- OUTSIDE RECORDS SUMMARY | 2022-04-22 14:11 | XMS_ITS | CCD ---
:1945 Author Care Team Providers Name Role Phone RADHA VANN, CLEOPATRA Gómez Attending Physician Unavailable Vital Signs Unknown or Not Available. Allergies Allergy Code Allergy Type Reaction Status PENICILLINS (CLASS) 0 Drug allergy pt doesn't know Activ e TETRACYCLINE 05659 Drug allergy Active Procedures Unknown or Not Available. History of Immunizations Unknown or Not Available. Problems Problem Code Start Date Resolved Date Status CHRONIC AIRWAY OBSTRUCTION 82079985 A ctive HX OF BRONCHOGENIC MALIGNANCY 849752854 Active MULTIPLE SCLEROSIS 50598669 Active Hyperemesis 702535274 Active HTN 84292264 Active Acute respiratory failure with hypoxia 71891142 Active COPD with exacerbation 310440451 Activ e Cancer of lung 95195236 Active Acute CHF 19306938 Active Hypertension 02025462 Active Near syncope 962119563 Active Dehydration 86291885 Active High troponin I level 347543155 Active Acute exacerbation of COPD 085105745 08/07/2021 A ctive Results Unknown or Not Available. Active Medications Medication Code Dose Units Frequency Route Modification Start Date/Time predniSONE 10MG 573718 1 TABLET DAILY ORAL 08/07/20 21 Oral Tablet 15:21 Prescription Detail TAKE 5 TABS ORAL FOR 2 DAYS, THEN 4 TABS FOR 2 DAYS, THEN 3 TABS FOR 2 DAYS, THEN 2 TABS FOR 2 DAYS, THEN 1 TAB FOR 2 DAYS Ipratropium 1431785 1 NEEDED INHALATION 021 15:20 [place]-Albuterol Sulfate FOUR TIMES A 0.5MG/3ML-3MG/3ML DAY Inhalation Solution Prescription Detail 1 INHALATION NEEDED FOUR TIMES A DAY FOR Difficulty Breathing Acetaminophen 325MG 115996 650 MILLIGRAMS NEEDED ORAL 06/28/2020 09:36 Oral Tablet EVERY 4 HOURS Prescription Detail TAKE 650 MILLIGRAMS ORAL NEEDED EVERY 4 HOURS Amitriptyline HCl 50MG 627311 50 MILLIGRAMS BEDTIME ORAL 06/28/2020 09:36 Oral Tablet Prescription Detail TAKE 50 MILLIGRAMS ORAL BEDT МАРИЯ Atorvastatin Calcium 094916 20 MILLIGRAMS EVERY EVENING ORAL 06/28/2020 09:36 20MG Oral Tablet Prescription Detail TAKE 20 MILLIGRAMS ORAL EVER Y EVENING Budesonide 0.5MG/2ML 532372 1 EACH DAILY INHALATION 06/28/2020 09:36 Inhalation Suspension Prescription Detail 1 EACH INHALATION DAILY Cetirizine 10MG Oral 7501672 10 MILLIGRAMS BEDTIME ORAL 06/28/2020 09:36 Tablet Prescription Detail TAKE 10 MILLIGRAMS ORAL BEDT МАРИЯ Famotidine 20MG 385390 20 MILLIGRAMS NEEDED TWICE ORAL 06/28/2020 09:36 Oral Tablet DAILY Prescription Detail TAKE 20 MILLIGRAMS ORAL N EEDED TWICE DAILY Ipratropium 5011209 1 EACH NEEDED INHALATION 020 09:36 [place]offey-Albuterol Sulfate 0.5MG/3ML-3MG/3ML Inhalation Solution Prescription Detail 1 EACH INHALATION NEEDED Lidocaine-Prilocaine 393715 1 EACH NEEDED TOPICAL 1 2.5%-2.5% Topical APPLICATION 09 :36 application Cream Prescription Detail 1 EACH TOPICAL APPLICATION NEEDED Losartan Potassium 100MG 556607 100 MILLIGRAMS DAILY ORAL 06/28/2020 09:36 Oral Tablet Prescription Detail TAKE 100 MILLIGRAMS ORAL PARRIS LY Magnesium 500 MG Oral 538696 2 TABLET THREE TIMES A DAY ORAL 06/28/2020 09:36 Tablet Prescription Detail TAKE 2 TABLET ORAL THREE CELSO ES A DAY Morphine Sulfate 60MG 208769 60 MILLIGRAMS TWICE A DAY ORAL 06/28/2020 09:36 Oral Capsule, Extended Release Prescription Detail TAKE 60 MILLIGRAMS ORAL TWIC E A DAY Narcan 4MG/0.1ML Nasal [place] 7409127 1 EACH NEEDED NASAL 06/28/2020 09:36 Prescription Detail SPRAY 1 EACH NASAL NEEDED Omeprazole 40MG Oral 20021106 40 MILLIGRAMS DAILY ORAL 06/28/2020 09:36 Capsule, Delayed Release Prescription Detail TAKE 40 MILLIGRAMS ORAL BETTY Y Ondansetron 4MG Oral Tablet 539071 1 TABLET DAILY ORAL 06/28/2020 09:36 Prescription Detail TAKE 1 TABLET ORAL DAILY Polyethylene Glycol 40354462732 1 EACH NEEDED DAILY ORAL 06/28/2020 09:36 17GM/1Dose Oral Powder for Solution Prescription Detail TAKE 1 EACH ORAL NEEDED D AILY PreserVision Areds 2 NA 45846448662 2 CAPSULE DAILY ORAL 06/28/2020 09:36 Oral Capsule, Liquid Filled Prescription Detail TAKE 2 CAPSULE ORAL DAILY ProAir HFA 432587 2 PUFF NEEDED INHALATION 06/28/20 09:36 0.09MG/1Actuation THREE TIMES A Inhalation Suspension DAY Prescription Detail 2 PUFF INHALATION NEEDED THREE TIMES A DAY Pulmicort Flexhaler 016162 2 PUFF TWICE A DAY INHALATION 06/28/2020 09:36 90MCG/1Act Inhalation Powder Prescription Detail 2 PUFF INHALATION TWICE A D AY Spironolactone 25MG Oral 810716 25 MILLIGRAMS DAILY ORAL 06/28/2020 09:36 Tablet Prescription Detail TAKE 25 MILLIGRAMS ORAL BETTY Y Torsemide 20MG Oral Tablet 913887 1 TABLET DAILY ORAL 06/28/2020 09:36 Prescription Detail TAKE 1 TABLET ORAL DAILY Vitamin D3 139537 4399 INTERNATIONAL UNITS DAILY ORAL 1 09:36 1000IU Oral Tablet Prescription Detail TAKE 1000 INTERNATIONAL UNIT S ORAL DAILY Ondansetron 4MG Oral 061829 4 MILLIGRAMS BEFORE MEALS ORAL 06/28/2020 09:35 Tablet, Disintegrating Prescription Detail TAKE 4 MILLIGRAMS ORAL BEFOR E MEALS predniSONE 5MG Oral 463437 5 MILLIGRAMS DAILY WITH FOOD ORAL 06/28/2020 09:35 Tablet Prescription Detail TAKE 5 MILLIGRAMS ORAL DAILY WITH FOOD Refresh Ophthalmic 317677 1 EACH NEEDED OPTHALMIC 0 10/20/2019 12:16 Solution Prescription Detail 1 EACH OPTHALMIC NEEDED Avastin 25MG/1ML Intravenous 1679261 U2GBOMS IVPB 10/20/2019 12:15 Solution Prescription Detail IVPB [id number] Mapap 325MG Oral 478210 650 MILLIGRAMS NEEDED EVERY ORAL 10/20/2019 12:14 Tablet 4 HOURS Prescription Detail TAKE 650 MILLIGRAMS ORAL NEEDED EVERY 4 HOURS amLODIPine Besylate 10MG 260216 10 MILLIGRAMS DAILY ORAL 08/06/2019 11:13 Oral Tablet Prescription Detail TAKE 10 MILLIGRAMS ORAL BETTY Y Aspirin 81MG Oral Tablet, 429045 81 MILLIGRAMS DAILY ORAL 08/16/2018 10:22 Enteric Coated Prescription Detail TAKE 81 MILLIGRAMS ORAL BETTY Y Cymbalta 60MG Oral Capsule, 856169 60 MILLIGRAMS DAILY ORAL 08/16/2018 10:22 Delayed Release Prescription Detail TAKE 60 MILLIGRAMS ORAL BETTY Y Medications Administered During Visit Unknown or Not Available. Encounters Encounter Diagnosis Diagnosis Code Start Date Malignant neoplasm of unspecified part of unspecified C3490 06/10/2021 bronchus or lung Social History Smoking Status Code Start Date End Date Current every day smoker [id number] Patient Decision Aids Unknown or Not Available. Discharge Instructions You were admitted to [facility] on 06/10/2021 09:22 with a principal diagnosis of Malignant neoplasm of unspe cified part of unspecified bronchus or lung You were discharged from [facility] on 06/10/2021 09:22 Should you have [...]
--- OUTSIDE RECORDS SUMMARY | 2022-04-22 14:12 | XMS_ITS | CCD ---
:1945 Author Care Team Providers Name Role Phone RADHA VANN, CLEOPATRA Gómez Attending Physician Unavailable Vital Signs Unknown or Not Available. Allergies Allergy Code Allergy Type Reaction Status PENICILLINS (CLASS) 0 Drug allergy pt doesn't know Activ e TETRACYCLINE 43029 Drug allergy Active Procedures Unknown or Not Available. History of Immunizations Unknown or Not Available. Problems Problem Code Start Date Resolved Date Status CHRONIC AIRWAY OBSTRUCTION 09722307 A ctive HX OF BRONCHOGENIC MALIGNANCY 046456458 Active MULTIPLE SCLEROSIS 90322652 Active Hyperemesis 691093058 Active HTN 94084397 Active Acute respiratory failure with hypoxia 77390919 Active COPD with exacerbation 383491196 Activ e Cancer of lung 33289879 Active Acute CHF 59968965 Active Hypertension 10404584 Active Near syncope 627518316 Active Dehydration 44938597 Active High troponin I level 599398289 Active Acute exacerbation of COPD 388181779 08/07/2021 A ctive Results COMPREHENSIVE METABOLIC PANEL [...] 33 mmol/L L=22 H= 34 ANION GAP 05806-8 5.2 mmol/L CALCIUM SERUM 03939-9 9.4 mg/dL L=8.2 H=10.2 BILIRUBIN TOTAL 1975-2 0.3 mg/dL L=0.0 H=1.3 ALK. PHOS. 6768-6 115 U/L L=46 H=116 SGOT (AST) 1920-8 8 U/L L=15 H=37 SGPT (ALT) 1742-6 30 U/L L=12 H=78 TOTAL PROTEIN 2885-2 6.3 gm/dL L=6.0 H=8.0 ALBUMIN 1751-7 3.5 gm/dL L=3.4 H=5.0 AGE 75 years eGFR (non-Afr.Amer.) 60483-1 57 mL/min eGFR (Afr-[place]) 16506-2 69 mL/min MAGNESIUM SERUM - Collect Date/Time: 04/2021 12:45 Test Name Code Test Result Test Units Test Ref Range MAGNESIUM 45379-4 2.0 mg/dL L=1.8 H=2.4 TSH THYROID STIMULATING HORMONE - [facility] t Date/Time: 06/05/2021 12:45 Test Name Code Test Result Test Units Test Ref Range TSH 3014-8 2.370 uIU/mL L=0.360 H=3.740 CBC W/ DIFFERENTIAL - Collect Date/Time: 06/05/2021 12:45 Test Name Code Test Result Test Units Test Ref Range WBC 6690-2 8.64 th/cmm L=5.00 H=10.00 NEUT % 82.3 % L=40.0 H=80.0 LYMPH % 8.9 % L=10.0 H=50.0 MONO % 56882-3 6.9 % L=2.0 H=12.0 EOS % 0.9 % L=0.0 H=8.0 BASO % 0.7 % L=0.0 H=3.0 IG % 2514-8 0.3 % L=0.0 H=1.1 NRBC % 92604-8 0.0 % L=0.0 H=0.0 NEUT abs count 751-8 7.1 th/cmm L=1.6 H=8.4 LYMPH abs count 731-0 0.8 th/cmm L=1.5 H=4.0 MONO abs count 742-7 0.6 th/cmm L=0.2 H=1.0 EOS abs count 711-2 0.1 th/cmm L=0.0 H=0.5 BASO abs count 704-7 0.1 th/cmm L=0.0 H=0.2 IG abs count 01188-8 0.0 th/cmm L=0.0 H=0.1 NRBC abs count 01708-5 0.0 mil/cmm L=0.0 H=0.0 RBC 789-8 3.56 [...] Frequency Route Modification Start Date/Time predniSONE 10MG 256277 1 TABLET DAILY ORAL 08/07/20 21 Oral Tablet 15:21 Prescription Detail TAKE 5 TABS ORAL FOR 2 DAYS, THEN 4 TABS FOR 2 DAYS, THEN 3 TABS FOR 2 DAYS, THEN 2 TABS FOR 2 DAYS, THEN 1 TAB FOR 2 DAYS Ipratropium 0616889 1 NEEDED INHALATION 021 15:20 [place]-Albuterol Sulfate FOUR TIMES A 0.5MG/3ML-3MG/3ML DAY Inhalation Solution Prescription Detail 1 INHALATION NEEDED FOUR TIMES A DAY FOR Difficulty Breathing Acetaminophen 325MG 289936 650 MILLIGRAMS NEEDED ORAL 06/28/2020 09:36 Oral Tablet EVERY 4 HOURS Prescription Detail TAKE 650 MILLIGRAMS ORAL NEEDED EVERY 4 HOURS Amitriptyline HCl 50MG 993289 50 MILLIGRAMS BEDTIME ORAL 06/28/2020 09:36 Oral Tablet Prescription Detail TAKE 50 MILLIGRAMS ORAL BED[place] М[place] Atorvastatin Calcium 799622 20 MILLIGRAMS EVERY EVENING ORAL 06/28/2020 09:36 20MG Oral Tablet Prescription Detail TAKE 20 MILLIGRAMS ORAL EVER Y EVENING Budesonide 0.5MG/2ML 917409 1 EACH DAILY INHALATION 06/28/2020 09:36 Inhalation Suspension Prescription Detail 1 EACH INHALATION DAILY Cetirizine 10MG Oral 2723063 10 MILLIGRAMS BEDTIME ORAL 06/28/2020 09:36 Tablet Prescription Detail TAKE 10 MILLIGRAMS ORAL [place]ED[place] М[place]РИ[place] Famotidine 20MG 039128 20 MILLIGRAMS NEEDED TWICE ORAL 06/28/2020 09:36 Oral Tablet DAILY Prescription Detail TAKE 20 MILLIGRAMS ORAL N EEDED TWICE DAILY Ipratropium 1001700 1 EACH NEEDED INHALATION 020 09:36 [place]-Albuterol Sulfate 0.5MG/3ML-3MG/3ML Inhalation Solution Prescription Detail 1 EACH INHALATION NEEDED Lidocaine-Prilocaine 024398 1 EACH NEEDED TOPICAL 1 2.5%-2.5% Topical APPLICATION 09 :36 application Cream Prescription Detail 1 EACH TOPICAL APPLICATION NEEDED Losartan Potassium 100MG 569306 100 MILLIGRAMS DAILY ORAL 06/28/2020 09:36 Oral Tablet Prescription Detail TAKE 100 MILLIGRAMS ORAL PARRIS LY Magnesium 500 MG Oral 360113 2 TABLET THREE TIMES A DAY ORAL 06/28/2020 09:36 Tablet Prescription Detail TAKE 2 TABLET ORAL THREE CELSO ES A DAY Morphine Sulfate 60MG 181329 60 MILLIGRAMS TWICE A DAY ORAL 06/28/2020 09:36 Oral Capsule, Extended Release Prescription Detail TAKE 60 MILLIGRAMS ORAL TWIC E A DAY Narcan 4MG/0.1ML Nasal [place] 5450822 1 EACH NEEDED NASAL 06/28/2020 09:36 Prescription Detail SPRAY 1 EACH NASAL NEEDED Omeprazole 40MG Oral 20021106 40 MILLIGRAMS DAILY ORAL 06/28/2020 09:36 Capsule, Delayed Release Prescription Detail TAKE 40 MILLIGRAMS ORAL BETTY Y Ondansetron 4MG Oral Tablet 230005 1 TABLET DAILY ORAL 06/28/2020 09:36 Prescription Detail TAKE 1 TABLET ORAL DAILY Polyethylene Glycol 55297670179 1 EACH NEEDED DAILY ORAL 06/28/2020 09:36 17GM/1Dose Oral Powder for Solution Prescription Detail TAKE 1 EACH ORAL NEEDED D AILY PreserVision Areds 2 NA 63635348784 2 CAPSULE DAILY ORAL 06/28/2020 09:36 Oral Capsule, Liquid Filled Prescription Detail TAKE 2 CAPSULE ORAL DAILY ProAir HFA 602482 2 PUFF NEEDED INHALATION 06/28/20 09:36 0.09MG/1Actuation THREE TIMES A Inhalation Suspension DAY Prescription Detail 2 PUFF INHALATION NEEDED THREE TIMES A DAY Pulmicort Flexhaler 553986 2 PUFF TWICE A DAY INHALATION 06/28/2020 09:36 90MCG/1Act Inhalation Powder Prescription Detail 2 PUFF INHALATION TWICE A D AY Spironolactone 25MG Oral 055642 25 MILLIGRAMS DAILY ORAL 06/28/2020 09:36 Tablet Prescription Detail TAKE 25 MILLIGRAMS ORAL BETTY Y Torsemide 20MG Oral Tablet 262299 1 TABLET DAILY ORAL 06/28/2020 09:36 Prescription Detail TAKE 1 TABLET ORAL DAILY Vitamin D3 286300 6874 INTERNATIONAL UNITS DAILY ORAL 1 09:36 1000IU Oral Tablet Prescription Detail TAKE 1000 INTERNATIONAL UNIT S ORAL DAILY Ondansetron 4MG Oral 200543 4 MILLIGRAMS BEFORE MEALS ORAL 06/28/2020 09:35 Tablet, Disintegrating Prescription Detail TAKE 4 MILLIGRAMS ORAL BEFOR E MEALS predniSONE 5MG Oral 642378 5 MILLIGRAMS DAILY WITH FOOD ORAL 06/28/2020 09:35 Tablet Prescription Detail TAKE 5 MILLIGRAMS ORAL DAILY WITH FOOD Refresh Ophthalmic 797757 1 EACH NEEDED OPTHALMIC 0 10/20/2019 12:16 Solution Prescription Detail 1 EACH OPTHALMIC NEEDED Avastin 25MG/1ML Intravenous 8203238 [id number] IVPB 10/20/2019 12:15 Solution Prescription Detail IVPB [id number] Mapap 325MG Oral 232471 650 MILLIGRAMS NEEDED EVERY ORAL 10/20/2019 12:14 Tablet 4 HOURS Prescription Detail TAKE 650 MILLIGRAMS ORAL NEEDED EVERY 4 HOURS amLODIPine Besylate 10MG 048921 10 MILLIGRAMS DAILY ORAL 08/06/2019 11:13 Oral Tablet Prescription Detail TAKE 10 MILLIGRAMS ORAL BETTY Y Aspirin 81MG Oral Tablet, 921754 81 MILLIGRAMS DAILY ORAL 08/16/2018 10:22 Enteric Coated Prescription Detail TAKE 81 MILLIGRAMS ORAL BETTY Y Cymbalta 60MG Oral Capsule, 168308 60 MILLIGRAMS DAILY ORAL 08/16/2018 10:22 Delayed Release Prescription Detail TAKE 60 MILLIGRAMS ORAL BETTY Y Medications Administered During Visit Unknown or Not Available. Encounters Encounter Diagnosis Diagnosis Code Start Date Encounter for antineoplastic immunotherapy [id number] 06/05/2021 Social History Smoking Status Code Start Date End Date Current every day smoker [id number] Patient Decision Aids Unknown or Not Available. Discharge Instructions You were admitted to [facility] on 06/05/2021 12:25 with a principal diagnosis of Encounter for antineoplasti c immunotherapy You had the following tests done: CBC W / DIFFERENTIAL COMPREHENSIVE METABOLIC PANEL (CMP) MAGNESIUM SERUM TSH THYROID STIMUL ATING HORMONE You were discharged from [facility] 01 on 06/05/2021 12:25 Should you have [...]
--- OUTSIDE RECORDS SUMMARY | 2022-04-22 14:12 | XMS_ITS | CCD ---
:1945 Author Care Team Providers Name Role Phone RADHA VANN, CLEOPATRA Gómez Attending Physician Unavailable Vital Signs Unknown or Not Available. Allergies Allergy Code Allergy Type Reaction Status PENICILLINS (CLASS) 0 Drug allergy pt doesn't know Activ e TETRACYCLINE 44635 Drug allergy Active Procedures Unknown or Not Available. History of Immunizations Unknown or Not Available. Problems Problem Code Start Date Resolved Date Status CHRONIC AIRWAY OBSTRUCTION 78581644 A ctive HX OF BRONCHOGENIC MALIGNANCY 488032934 Active MULTIPLE SCLEROSIS 44737707 Active Hyperemesis 249804468 Active HTN 54354319 Active Acute respiratory failure with hypoxia 09410399 Active COPD with exacerbation 484939731 Activ e Cancer of lung 84539711 Active Acute CHF 56454768 Active Hypertension 72467094 Active Near syncope 522750654 Active Dehydration 86324686 Active High troponin I level 034869236 Active Acute exacerbation of COPD 819493694 08/07/2021 A ctive Results COMPREHENSIVE METABOLIC PANEL [...] 34 mmol/L L=22 H= 34 ANION GAP 90354-7 4.0 mmol/L CALCIUM SERUM 16508-9 9.4 mg/dL L=8.2 H=10.2 BILIRUBIN TOTAL 1975-2 0.3 mg/dL L=0.0 H=1.3 ALK. PHOS. 6768-6 119 U/L L=46 H=116 SGOT (AST) 1920-8 9 U/L L=15 H=37 SGPT (ALT) 1742-6 17 U/L L=12 H=78 TOTAL PROTEIN 2885-2 6.4 gm/dL L=6.0 H=8.0 ALBUMIN 1751-7 3.5 gm/dL L=3.4 H=5.0 AGE 75 years eGFR (non-Afr.Amer.) 79390-8 60 mL/min eGFR (Afr-[place]) 18377-2 73 mL/min MAGNESIUM SERUM - Collect Date/Time: 09:25 Test Name Code Test Result Test Units Test Ref Range MAGNESIUM 33092-6 1.9 mg/dL L=1.8 H=2.4 CBC W/ DIFFERENTIAL - Collect Date/Time: 06/26/2021 09:25 Test Name Code Test Result Test Units Test Ref Range WBC 6690-2 9.64 th/cmm L=5.00 H=10.00 NEUT % 80.6 % L=40.0 H=80.0 LYMPH % 8.8 % L=10.0 H=50.0 MONO % 14350-5 8.6 % L=2.0 H=12.0 EOS % 1.0 % L=0.0 H=8.0 BASO % 0.6 % L=0.0 H=3.0 IG % 2514-8 0.4 % L=0.0 H=1.1 NRBC % 91827-0 0.0 % L=0.0 H=0.0 NEUT abs count 751-8 7.8 th/cmm L=1.6 H=8.4 LYMPH abs count 731-0 0.9 th/cmm L=1.5 H=4.0 MONO abs count 742-7 0.8 th/cmm L=0.2 H=1.0 EOS abs count 711-2 0.1 th/cmm L=0.0 H=0.5 BASO abs count 704-7 0.1 th/cmm L=0.0 H=0.2 IG abs count 51735-9 0.0 th/cmm L=0.0 H=0.1 NRBC abs count 12889-4 0.0 mil/cmm L=0.0 H=0.0 RBC 789-8 3.69 [...] Appearance 5767-9 CLEAR N/A clear Glucose urine 77517-0 NEGATIVE N/A negative mg/dl Bilirubin 5770-3 NEGATIVE N/A negative Ketones 2514-8 NEGATIVE N/A negative mg/dl Spec gravity 5811-5 1.010 N/A 1.003 - 1.030 pH urine 2756-5 6.5 N/A 5.0 - 7.0 Protein 50431-6 NEGATIVE N/A negative mg/dl Urobilinogen 65063-2 0.2 N/A <or= 1 EU/dl Nitrite. 5802-4 NEGATIVE N/A negative Blood 5794-3 NEGATIVE N/A negative Leukocytes. SMALL N/A negative WBCs. 68975-4 10-25 N/A 0-5 / hpf RBCs none N/A 0-5 / hpf Epith cells 93028-3 10-25 N/A 0-5 / hpf Cell types squamous N/A Crystals amorphous N/A none Bacteria minimal N/A none Mucus none N/A none Casts none N/A none /lpf Active Medications Medications Administered During Visit Unknown or Not Available. Encounters Encounter Diagnosis Diagnosis Code Start Date Encounter for antineoplastic immunotherapy [id number] 06/26/2021 Social History Smoking Status Code Start Date End Date Current every day smoker [id number] Patient Decision Aids Unknown or Not Available. Discharge Instructions You were admitted to [facility] 01 on 06/26/2021 08:49 with a principal diagnosis of Encounter for antineoplasti c immunotherapy You had the following tests done: URINA LYSIS WITH MICRO AND REFLEX CULTURE CBC W/ DIFFERENTIAL COMPREHENSIVE METABOLIC RUFFIN EL (CMP) MAGNESIUM SERUM You were discharged from [facility] on 06/26/2021 08:49 Should you have any [...]
--- OUTSIDE RECORDS SUMMARY | 2022-04-22 14:12 | XMS_ITS | CCD ---
:1945 Author Care Team Providers Name Role Phone RADHA VANN, CLEOPATRA Gómez Attending Physician Unavailable Vital Signs Unknown or Not Available. Allergies Allergy Code Allergy Type Reaction Status PENICILLINS (CLASS) 0 Drug allergy pt doesn't know Activ e TETRACYCLINE 48434 Drug allergy Active Procedures Unknown or Not Available. History of Immunizations Unknown or Not Available. Problems Problem Code Start Date Resolved Date Status CHRONIC AIRWAY OBSTRUCTION 86156190 A ctive HX OF BRONCHOGENIC MALIGNANCY 203728599 Active MULTIPLE SCLEROSIS 42952848 Active Hyperemesis 586779540 Active HTN 38517662 Active Acute respiratory failure with hypoxia 70221002 Active COPD with exacerbation 787511152 Activ e Cancer of lung 52947416 Active Acute CHF 96468559 Active Hypertension 68901684 Active Near syncope 524740455 Active Dehydration 00110197 Active High troponin I level 605593836 Active Acute exacerbation of COPD 925722074 08/07/2021 A ctive Results Unknown or Not Available. Active Medications Medication Code Dose Units Frequency Route Modification Start Date/Time predniSONE 10MG 764284 1 TABLET DAILY ORAL 08/07/20 21 Oral Tablet 15:21 Prescription Detail TAKE 5 TABS ORAL FOR 2 DAYS, THEN 4 TABS FOR 2 DAYS, THEN 3 TABS FOR 2 DAYS, THEN 2 TABS FOR 2 DAYS, THEN 1 TAB FOR 2 DAYS Ipratropium 8174429 1 NEEDED INHALATION 021 15:20 [place]-Albuterol Sulfate FOUR TIMES A 0.5MG/3ML-3MG/3ML DAY Inhalation Solution Prescription Detail 1 INHALATION NEEDED FOUR TIMES A DAY FOR Difficulty Breathing Acetaminophen 325MG 443294 650 MILLIGRAMS NEEDED ORAL 06/28/2020 09:36 Oral Tablet EVERY 4 HOURS Prescription Detail TAKE 650 MILLIGRAMS ORAL NEEDED EVERY 4 HOURS Amitriptyline HCl 50MG 865307 50 MILLIGRAMS BEDTIME ORAL 06/28/2020 09:36 Oral Tablet Prescription Detail TAKE 50 MILLIGRAMS ORAL BEDT МАРИЯ Atorvastatin Calcium 815914 20 MILLIGRAMS EVERY EVENING ORAL 06/28/2020 09:36 20MG Oral Tablet Prescription Detail TAKE 20 MILLIGRAMS ORAL EVER Y EVENING Budesonide 0.5MG/2ML 377212 1 EACH DAILY INHALATION 06/28/2020 09:36 Inhalation Suspension Prescription Detail 1 EACH INHALATION DAILY Cetirizine 10MG Oral 0898861 10 MILLIGRAMS BEDTIME ORAL 06/28/2020 09:36 Tablet Prescription Detail TAKE 10 MILLIGRAMS ORAL BEDT МАРИЯ Famotidine 20MG 272231 20 MILLIGRAMS NEEDED TWICE ORAL 06/28/2020 09:36 Oral Tablet DAILY Prescription Detail TAKE 20 MILLIGRAMS ORAL N EEDED TWICE DAILY Ipratropium 7288909 1 EACH NEEDED INHALATION 020 09:36 [place]-Albuterol Sulfate 0.5MG/3ML-3MG/3ML Inhalation Solution Prescription Detail 1 EACH INHALATION NEEDED Lidocaine-Prilocaine 137427 1 EACH NEEDED TOPICAL 1 2.5%-2.5% Topical APPLICATION 09 :36 application Cream Prescription Detail 1 EACH TOPICAL APPLICATION NEEDED Losartan Potassium 100MG 926547 100 MILLIGRAMS DAILY ORAL 06/28/2020 09:36 Oral Tablet Prescription Detail TAKE 100 MILLIGRAMS ORAL PARRIS LY Magnesium 500 MG Oral 222709 2 TABLET THREE TIMES A DAY ORAL 06/28/2020 09:36 Tablet Prescription Detail TAKE 2 TABLET ORAL THREE CELSO ES A DAY Morphine Sulfate 60MG 376363 60 MILLIGRAMS TWICE A DAY ORAL 06/28/2020 09:36 Oral Capsule, Extended Release Prescription Detail TAKE 60 MILLIGRAMS ORAL TWIC E A DAY Narcan 4MG/0.1ML Nasal [place] 1866110 1 EACH NEEDED NASAL 06/28/2020 09:36 Prescription Detail SPRAY 1 EACH NASAL NEEDED Omeprazole 40MG Oral 20021106 40 MILLIGRAMS DAILY ORAL 06/28/2020 09:36 Capsule, Delayed Release Prescription Detail TAKE 40 MILLIGRAMS ORAL BETTY Y Ondansetron 4MG Oral Tablet 244753 1 TABLET DAILY ORAL 06/28/2020 09:36 Prescription Detail TAKE 1 TABLET ORAL DAILY Polyethylene Glycol 06432509442 1 EACH NEEDED DAILY ORAL 06/28/2020 09:36 17GM/1Dose Oral Powder for Solution Prescription Detail TAKE 1 EACH ORAL NEEDED D AILY PreserVision Areds 2 NA 16342242187 2 CAPSULE DAILY ORAL 06/28/2020 09:36 Oral Capsule, Liquid Filled Prescription Detail TAKE 2 CAPSULE ORAL DAILY ProAir HFA 078490 2 PUFF NEEDED INHALATION 06/28/20 09:36 0.09MG/1Actuation THREE TIMES A Inhalation Suspension DAY Prescription Detail 2 PUFF INHALATION NEEDED THREE TIMES A DAY Pulmicort Flexhaler 620867 2 PUFF TWICE A DAY INHALATION 06/28/2020 09:36 90MCG/1Act Inhalation Powder Prescription Detail 2 PUFF INHALATION TWICE A D AY Spironolactone 25MG Oral 273646 25 MILLIGRAMS DAILY ORAL 06/28/2020 09:36 Tablet Prescription Detail TAKE 25 MILLIGRAMS ORAL BETTY Y Torsemide 20MG Oral Tablet 173321 1 TABLET DAILY ORAL 06/28/2020 09:36 Prescription Detail TAKE 1 TABLET ORAL DAILY Vitamin D3 606568 4050 INTERNATIONAL UNITS DAILY ORAL 1 09:36 1000IU Oral Tablet Prescription Detail TAKE 1000 INTERNATIONAL UNIT S ORAL DAILY Ondansetron 4MG Oral 738974 4 MILLIGRAMS BEFORE MEALS ORAL 06/28/2020 09:35 Tablet, Disintegrating Prescription Detail TAKE 4 MILLIGRAMS ORAL BEFOR E MEALS predniSONE 5MG Oral 420352 5 MILLIGRAMS DAILY WITH FOOD ORAL 06/28/2020 09:35 Tablet Prescription Detail TAKE 5 MILLIGRAMS ORAL DAILY WITH FOOD Refresh Ophthalmic 784641 1 EACH NEEDED OPTHALMIC 0 10/20/2019 12:16 Solution Prescription Detail 1 EACH OPTHALMIC NEEDED Avastin 25MG/1ML Intravenous 8541778 [id number] IVPB 10/20/2019 12:15 Solution Prescription Detail IVPB [id number] Mapap 325MG Oral 208025 650 MILLIGRAMS NEEDED EVERY ORAL 10/20/2019 12:14 Tablet 4 HOURS Prescription Detail TAKE 650 MILLIGRAMS ORAL NEEDED EVERY 4 HOURS amLODIPine Besylate 10MG 977171 10 MILLIGRAMS DAILY ORAL 08/06/2019 11:13 Oral Tablet Prescription Detail TAKE 10 MILLIGRAMS ORAL BETTY Y Aspirin 81MG Oral Tablet, 114708 81 MILLIGRAMS DAILY ORAL 08/16/2018 10:22 Enteric Coated Prescription Detail TAKE 81 MILLIGRAMS ORAL BETTY Y Cymbalta 60MG Oral Capsule, 015360 60 MILLIGRAMS DAILY ORAL 08/16/2018 10:22 Delayed Release Prescription Detail TAKE 60 MILLIGRAMS ORAL BETTY Y Medications Administered During Visit Unknown or Not Available. Encounters Unknown or Not Available. Social History Smoking Status Code Start Date End Date Current every day smoker [id number] Patient Decision Aids Unknown or Not Available. [...]
[2022-04-22 14:14] LABS: Troponin I 968 ng/L (<or=60)
[2022-04-22 14:30] LABS: COVID-19 PCR Negative (Negative)
[2022-04-22] MEDS: Omnipaque 350 MG/ML 100 ML BTL IJ (15:03)
[2022-04-22] MEDS: Normal Saline Flush 10 ML SYR IVP (15:04)
--- NOTE | 2022-04-22 15:30 | RT.EKG_ITS ---
APPROVED REPORT Exam: Resting ECG Reason for Exam: Shortness of breath, elevated Trop Patient Location: E HR:73 bpm ECG Measurements Heart Rate 73 AXIS AK 149 P 51 QRSd 83 QRS 57 QT 403 T 42 QTc 446 Conclusion Sinus rhythm...normal P axis, V-rate 60- 99 Low voltage, extremity leads...all extremity leads <0.5mV Borderline ST elevation, anterior leads...ST >0.15mV in V1-V4
[2022-04-22] MEDS: MORPHine 4 MG/ML SYR IVP (16:11)
[2022-04-22] MEDS: Torsemide 20 MG TAB PO (16:12)
[2022-04-22 17:00] LABS: Troponin I 929 ng/L (<or=60)
[2022-04-22] MEDS: Albuterol 2.5 MG/3 ML INH SOLN VIAL UPD (18:45)
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
[2022-04-22] MEDS: Acetaminophen 325 MG TAB PO (21:26)
[2022-04-22] MEDS: Omeprazole 20 MG CAPCR 40 MG PO (21:26)
[2022-04-22] MEDS: guaiFENesin 600 MG TABCR 1200 MG PO (21:27)
[2022-04-22] MEDS: Atorvastatin 20 MG TAB PO (21:27)
[2022-04-22 21:49] LABS: HCO3 (Venous) 41 mmol/L (23-28); O2 Sat (Venous) 87 %; TCO2 (Venous) 38 mmol/L (24-29); pH (Venous) 7.43 (7.31-7.41); pO2 (Venous) 49 mmHg
[2022-04-22 21:51] LABS: BE (Venous) > 15 mmol/L (-2-3); pCO2 (Venous) 61 mmHg (41-51)
[2022-04-22] MEDS: MORPHine Oral Concentrate 20 MG/ML 5 MG PO (22:19)
[2022-04-22] MEDS: diazePAM 5 MG TAB PO (23:08)
[2022-04-23] VITALS (22 sets, daily range): BP systolic 146–196; BP diastolic 69–91; PULSE 74–88; RESP 5–20; TEMP 31–37.2; O2SAT 89–95
[2022-04-23] MEDS: MORPHine Oral Concentrate 20 MG/ML 5 MG PO ×2 (06:40→12:37)
[2022-04-23 06:43] LABS: HCT 31.2 % (36.0-46.0); HGB 9.8 g/dL (11.2-15.7); MCH 28.1 pg (27.0-33.0); MCHC 31.4 % (32.0-36.0); MCV 89 fL (80-95); Platelet Count 208 10^3/uL (130-400); RBC 3.49 10^6/uL (3.93-5.22); RDW 15.2 % (11.7-14.6); RDW-SD 49.1 fL; WBC 8.27 10^3/uL (4.4-10.8)
[2022-04-23 06:53] LABS: Anion Gap 0.7 mmol/L (3-11); BUN 29 mg/dL (7-18); CO2 41.3 mmol/L (21.0-32.0); CREATININE 0.9 mg/dL (0.55-1.02); Calcium 9.7 mg/dL (8.5-10.1); Chloride 94 mmol/L (98-107); Glucose 116 mg/dL (74-106); Potassium 4.2 mmol/L (3.5-5.1); Sodium 136 mmol/L (136-145)
[2022-04-23] MEDS: Omeprazole 20 MG CAPCR 40 MG PO ×2 (08:16→19:42)
[2022-04-23] MEDS: Nicotine 14 MG/24 HR PATCH TD (08:16)
[2022-04-23] MEDS: DULoxetine 30 MG CAP 60 MG PO (08:16)
[2022-04-23] MEDS: Enoxaparin 40 MG/0.4 ML SYR SC (08:17)
[2022-04-23] MEDS: predniSONE 20 MG TAB 40 MG PO (08:17)
[2022-04-23] MEDS: Torsemide 20 MG TAB 60 MG PO (08:17)
[2022-04-23] MEDS: guaiFENesin 600 MG TABCR 1200 MG PO ×2 (08:17→19:42)
[2022-04-23] MEDS: Spironolactone 25 MG TAB PO (08:17)
[2022-04-23] MEDS: Albuterol/Ipratropium 3 ML UPD VIAL UPD ×3 (09:11→19:42)
[2022-04-23] MEDS: Losartan 25 MG TAB 50 MG PO (09:35)
[2022-04-23] MEDS: Azithromycin 250 MG TAB 500 MG PO (09:35)
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
--- NOTE | 2022-04-23 15:30 | W.PM.PROGNOT ---
Date of Service Date of service: 04/23/22 Time of Service: 15:30 Assessment and Plan Assessment and plan (1) COPD exacerbation: Status: Acute Assessment and plan: Typicall her O2 saturations on 2-3L O2 per NC are 90% (per pt.). Now on high flow O2 and stable. Cont nebs. Received IV solumedrol 125mg in the ED. Will continue 40mg prednisone daily. Cont Trelegy Cont. Mucinex. VibraPEP (2) CHF exacerbation: Status: Acute Assessment and plan: BNP elevated. 1+ pedal edema but no pulmonary edema noted on CT. Cont home Toresemide 40mg po daily. Given torsemide 20mg po in the ED. Cont Spironolactone. Echocardiogram: Technically limited study. Left ventricle is of normal size and thickness; systolic function normal. Est EF of 60%. Right ventricle not well visualized. Mild aortic valve stenosis. (3) 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: Status: Acute Assessment and plan: Conts to be followed by oncology at [facility]. (4) Chronic pain: Status: Chronic Assessment and plan: Cont MS Contin and IR morphine per her home dosing. PRN Mirilax as per home routine. (5) Hypertension: Status: Chronic Assessment and plan: Not on antihypertensives. BP now elevated. Given h/o diastolic CHF, initiate losartan 50mg daily. Monitor. (6) Elevated troponin: Status: Acute Assessment and plan: Initial troponin of 968. Repeat of 929. Likely demand ischemia from hypoxemia. Echocardiogram: as above. No wall motion abnormalities. (7) Acute on chronic respiratory failure with hypercapnia: Status: Acute Assessment and plan: She is a CO2 retainer. PCO2 of 86 in ED. Mentating normally. Now on high flow O2 system. Stable. Goal of O2 saturations of > 88%. Subjective Subjective Patient reports: no new complaints and afebrile; denies nausea or vomiting Interval history since last seen: Intermittent nonproductive cough. Exam Narrative Exam Narrative: Sitting in chair. High flow O2 in place Const General: cooperative, no acute distress and well developed Orientation: alert, oriented to person and oriented to place Eyes General: appearance normal, both eyes and all related structures Sclera: sclerae normal Neck Neck: full ROM and no JVD Resp Effort & Inspection: able to speak in complete sentences Auscultation: diminished lung sounds Cardio Rate: regular rate Rhythm: regular rhythm Heart Sounds: S1 normal, S2 normal and murmur GI Palpation: soft and nontender Skin General skin exam: no rashes or lesions noted Neuro General: no focal motor deficits Cranial Nerves: facial strength normal Speech: speech normal Extrem General: no calf tenderness and edema Laterality: bilateral (trace) Psych Appearance: grossly normal Mental Status: mental status grossly normal Speech and Movement: speech clear Objective Last Vital Signs Temp 36.7 C 04/23/22 11:09 Pulse 82 04/23/22 11:09 Resp 14 04/23/22 11:09 BP 177/91 H 04/23/22 11:09 Pulse Ox 92 04/23/22 11:31 Laboratory Results - last 24 hr 04/22/22 04/22/22 04/23/22 16:30 21:36 06:20 WBC 8.27 RBC 3.49 L Hgb 9.8 L Hct 31.2 L MCV 89 D MCH 28.1 MCHC 31.4 L RDW 15.2 H Plt Count 208 MPV 12.0 H VBG pH 7.43 H VBG pCO2 61 H* VBG pO2 49 VBG HCO3 41 H VBG Total CO2 38 H VBG O2 Saturation 87 VBG Base Excess > 15 H Sodium Potassium Chloride Carbon Dioxide Anion Gap BUN Creatinine Estimated GFR/1.73 m2 Glucose Calcium Troponin I 929 H* 04/23/22 06:20 WBC RBC Hgb Hct MCV MCH MCHC RDW Plt Count MPV VBG pH VBG pCO2 VBG pO2 VBG HCO3 VBG Total CO2 VBG O2 Saturation VBG Base Excess Sodium 136 Potassium 4.2 Chloride 94 L Carbon Dioxide 41.3 H Anion Gap 0.7 L BUN 29 H Creatinine 0.9 Estimated GFR/1.73 m2 >= 60.00 Glucose 116 H Calcium 9.7 Troponin I
[2022-04-23] MEDS: Budesonide/Formoterol 160/4.5 6 GM 60 PUFF INH IH (19:41)
[2022-04-23] MEDS: Nystatin POWDER 60 GM JAR TP (19:41)
[2022-04-23] MEDS: Atorvastatin 20 MG TAB PO (21:40)
[2022-04-24] VITALS (15 sets, daily range): BP systolic 127–167; BP diastolic 68–94; PULSE 68–86; RESP 4–22; TEMP 31–37.7; O2SAT 89–98
[2022-04-24 07:00] LABS: Anion Gap -0.6 mmol/L (3-11); BUN 30 mg/dL (7-18); CO2 42.6 mmol/L (21.0-32.0); CREATININE 0.9 mg/dL (0.55-1.02); Calcium 9.9 mg/dL (8.5-10.1); Chloride 94 mmol/L (98-107); Glucose 103 mg/dL (74-106); Potassium 4.2 mmol/L (3.5-5.1); Sodium 136 mmol/L (136-145)
[2022-04-24] MEDS: Enoxaparin 40 MG/0.4 ML SYR SC (08:13)
[2022-04-24] MEDS: Torsemide 20 MG TAB 40 MG PO (08:13)
[2022-04-24] MEDS: Nicotine 14 MG/24 HR PATCH TD (08:13)
[2022-04-24] MEDS: Azithromycin 250 MG TAB 500 MG PO (08:14)
[2022-04-24] MEDS: DULoxetine 30 MG CAP 60 MG PO (08:14)
[2022-04-24] MEDS: predniSONE 20 MG TAB 40 MG PO (08:14)
[2022-04-24] MEDS: Losartan 25 MG TAB 50 MG PO (08:14)
[2022-04-24] MEDS: Omeprazole 20 MG CAPCR 40 MG PO ×2 (08:14→20:01)
[2022-04-24] MEDS: guaiFENesin 600 MG TABCR 1200 MG PO ×2 (08:14→20:01)
[2022-04-24] MEDS: Spironolactone 25 MG TAB PO (08:14)
[2022-04-24] MEDS: Albuterol/Ipratropium 3 ML UPD VIAL UPD ×3 (08:21→20:02)
[2022-04-24] MEDS: Budesonide/Formoterol 160/4.5 6 GM 60 PUFF INH IH ×2 (08:22→20:19)
[2022-04-24] MEDS: Nystatin POWDER 60 GM JAR TP ×2 (08:42→20:05)
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
--- NOTE | 2022-04-24 11:59 | PDOC.CMPRO ---
- If Service Date Differs Date of service: 04/24/22 Time of Service: 11:59 Care Management Progress Note S/O:Madelin was sitting up in a chair when CM met with her. She appeared to be in good spirits and engaged easily with CM. Madelin shared that she feels better today but is not quite back to baseline. She did have a period where her O2 saturation dropped into the 80's but she recivered quickly. She had a PT evaluation this morning and did well. Per PT, she would be safe to return home with home health PT. Madelin had considered SNF for short term rehab but would like to return home if she is able. A:Madelin is a 76 year old woman admitted on 04/22/22 with CHF and COPD P:Madelin will likely be discharged home with new home health services services for nursing and PT. She will follow up with her community providers and plan of care and transport with family. CM will support Madelin and assess for discharge planning issues.
--- NOTE | 2022-04-24 12:38 | W.PM.PROGNOT ---
Date of Service Date of service: 04/24/22 Time of Service: 12:38 Assessment and Plan Assessment and plan (1) COPD exacerbation: Status: Acute Assessment and plan: Typicall her O2 saturations on 2-3L O2 per NC are 90% (per pt.). On high-flow NC yesterday and overnight. Now on 3L per NC. Cont nebs. Received IV solumedrol 125mg in the ED. Will continue 40mg prednisone daily. Cont Trelegy Cont. Mucinex. VibraPEP (2) CHF exacerbation: Status: Acute Assessment and plan: BNP elevated. 1+ pedal edema but no pulmonary edema noted on CT. Cont home Toresemide 40mg po daily. Given torsemide 20mg po in the ED. Cont Spironolactone. Echocardiogram: Technically limited study. Left ventricle is of normal size and thickness; systolic function normal. Est EF of 60%. Right ventricle not well visualized. Mild aortic valve stenosis. (3) 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: Status: Acute Assessment and plan: Conts to be followed by oncology at [facility]. (4) Chronic pain: Status: Chronic Assessment and plan: Cont MS Contin and IR morphine per her home dosing. PRN Mirilax as per home routine. (5) Hypertension: Status: Chronic Assessment and plan: Not on antihypertensives. BP now elevated; 140's to 160's today. Improving. Given h/o diastolic CHF, initiated losartan 50mg daily. Monitor. (6) Elevated troponin: Status: Acute Assessment and plan: Initial troponin of 968. Repeat of 929. Likely demand ischemia from hypoxemia. Echocardiogram: as above. No wall motion abnormalities. (7) Acute on chronic respiratory failure with hypercapnia: Status: Acute Assessment and plan: She is a CO2 retainer. PCO2 of 86 in ED. Mentating normally. Now off high flow O2 and on 3L NC Stable. Goal of O2 saturations of > 88%. Cont prn liquid concentrated morphine for air hunger; chronic medication for her. (8) Discharge planning issues: Status: Acute Assessment and plan: PT working with pt. She will consider SNF if this is recommended and seen as beneficial. Subjective Subjective Patient reports: tolerating a regular diet and afebrile; denies nausea or vomiting Interval history since last seen: Her ease of breathing is better. She states her overall sense of how she feels is not quite normal yet. Exam Narrative Exam Narrative: Sitting in chair. NC at 3L flow rate in place. Const General: cooperative, no acute distress and well developed Orientation: alert, oriented to person and oriented to place Eyes General: appearance normal, both eyes and all related structures Sclera: sclerae normal Neck Neck: full ROM and no JVD Resp Effort & Inspection: able to speak in complete sentences Auscultation: clear to auscultation bilaterally and diminished lung sounds Cardio Rate: regular rate Rhythm: regular rhythm Heart Sounds: S1 normal, S2 normal and murmur GI Palpation: soft and nontender Skin General skin exam: no rashes or lesions noted Neuro General: no focal motor deficits Cranial Nerves: facial strength normal Speech: speech normal Extrem General: no calf tenderness and edema Laterality: bilateral (trace) Psych Appearance: grossly normal Mental Status: mental status grossly normal Speech and Movement: speech clear Objective Last Vital Signs Temp 37.7 C H 04/24/22 11:31 Pulse 81 04/24/22 11:31 Resp 20 04/24/22 11:31 BP 144/77 H 04/24/22 11:31 Pulse Ox 89 L 04/24/22 11:31 Laboratory Results - last 24 hr 04/24/22 06:30 Sodium 136 Potassium 4.2 Chloride 94 L Carbon Dioxide 42.6 H Anion Gap -0.6 L BUN 30 H Creatinine 0.9 Estimated GFR/1.73 m2 >= 60.00 Glucose 103 Calcium 9.9
--- NOTE | 2022-04-24 14:22 | PT.INTREAT ---
Date of service: 04/24/22 Time of Service: 13:56 PT Notes Visit Reasons: Congestive Heart Failure,NSTEMI Inpatient Physical Therapy Treatment Note [facility] Date: 04/24/2022 PRECAUTIONS: Fall, activity as tolerated SUBJECTIVE: Carly is pleasant and agreeable to participating in PT. She reports that she is feeling more SOB today than she does at home. OBJECTIVE: PAIN: No c/o pain BED MOBILITY/TRANSFERS Sit-stand: S Stand-sit: S GAIT Assistive Device: 4WW Weight bearing: Full Assist: SBA Distance: 100' Deviation: Slow pacing, standing rest due to SOB, 3L O2 THEREX: Patient was instructed in a LE strengthening program, completed in a seated position, to include: ankle pumps, heel raises, hip abduction, LAQ and hip flexion. STAIRS: Patient has elevator at home, no stair training needed at this time. ASSESSMENT: Patient tolerated session with increased SOB with gait training, requiring standing rest. Patient tolerated a progression in gait distance with 4WW support, utilizing a slow and steady hosea. PLAN: Continue with global strengthening and general conditioning for improved activity tolerance. TREATMENT CODE/TIME: 16 minutes; 54313 (13:56)
[2022-04-24] MEDS: Atorvastatin 20 MG TAB PO (21:51)
[2022-04-24] MEDS: Normal Saline Flush 10 ML SYR IVP (22:06)
[2022-04-25] VITALS (10 sets, daily range): BP systolic 129–187; BP diastolic 72–88; PULSE 68–87; RESP 8–20; TEMP 36.3–37; O2SAT 88–93
[2022-04-25] MEDS: Polyethylene Glycol 3350 17 GM PACKET PO (06:28)
[2022-04-25 07:03] LABS: HCT 33.8 % (36.0-46.0); HGB 10.4 g/dL (11.2-15.7); MCH 27.7 pg (27.0-33.0); MCHC 30.8 % (32.0-36.0); MCV 90 fL (80-95); MPV 11.2 fL (8.0-11.0); Platelet Count 241 10^3/uL (130-400); RBC 3.76 10^6/uL (3.93-5.22); RDW 15.9 % (11.7-14.6); RDW-SD 52.1 fL
[2022-04-25] MEDS: Nicotine 14 MG/24 HR PATCH TD (07:40)
[2022-04-25] MEDS: Spironolactone 25 MG TAB PO (07:41)
[2022-04-25] MEDS: Enoxaparin 40 MG/0.4 ML SYR SC (07:41)
[2022-04-25] MEDS: Azithromycin 250 MG TAB 500 MG PO (07:41)
[2022-04-25] MEDS: Nystatin POWDER 60 GM JAR TP (07:41)
[2022-04-25] MEDS: predniSONE 20 MG TAB 40 MG PO (07:41)
[2022-04-25] MEDS: guaiFENesin 600 MG TABCR 1200 MG PO (07:46)
[2022-04-25] MEDS: Omeprazole 20 MG CAPCR 40 MG PO (07:46)
[2022-04-25] MEDS: Torsemide 20 MG TAB 40 MG PO (07:46)
[2022-04-25] MEDS: DULoxetine 30 MG CAP 60 MG PO (07:47)
[2022-04-25] MEDS: Losartan 25 MG TAB 100 MG PO (07:47)
[2022-04-25] MEDS: Albuterol/Ipratropium 3 ML UPD VIAL UPD (08:06)
[2022-04-25] MEDS: Budesonide/Formoterol 160/4.5 6 GM 60 PUFF INH IH (08:06)
--- NOTE | 2022-04-25 09:43 | PTTR_ITS ---
PT Notes Visit Reasons: Congestive Heart Failure,NSTEMI Inpatient Physical Therapy Treatment Note [facility] Date: 04/25/2022 PRECAUTIONS: Fall, activity as tolerated SUBJECTIVE: Carly is pleasant and agreeable to participating in PT. She states that OBJECTIVE: PAIN: No c/o pain BED MOBILITY/TRANSFERS Sit-stand: I Stand-sit: I GAIT Assistive Device: 4WW Weight bearing: Full Assist: S Distance: 100' x2 Deviation: Improved pacing, seated rest due to mild SOB and global fatigue, 3L O2 THEREX: Patient was instructed in a LE strengthening program, completed in a seated position, to include: ankle pumps, heel raises, hip abduction, LAQ and hip flexion. STAIRS: Patient has elevator at home, no stair training needed at this time. 4WW MECHANICS: Patient demonstrates appropriate and safe use of brakes, locks and seat at all times without need for cueing. Offered education in securing 4WW against wall when using for seated rest, for enhanced safety, when able. ASSESSMENT: Patient tolerated session with increased SOB and global fatigue with gait training, requiring seated rest. Patient demonstrates improved activi ty tolerance when using 4WW, as she is able to safely use seat for seated rest when feeling SOB or fatigued. PLAN: Continue with global strengthening and general conditioning for improved activity tolerance. TREATMENT CODE/TIME: Session 1: 18 minutes; [id number] (09:22)
--- NOTE | 2022-04-25 12:54 | PDOC.CMDIS ---
- If Service Date Differs Date of service: 04/25/22 Time of Service: 12:54 LACE Index Scoring Tool - Questions: Length of Stay (in days): 3 Acuity (Admit via E.D.?): Yes Comorbidities: Congestive Heart Failure, Chronic Pulmonary Disease, Metastatic Solid Tumor E.D. Visits: 3 - Answers: Total Score: 14 Risk of Readmission: High Risk Care Management Discharge Reason for Hospitalization: COPD Exacerbation Discharge Plan: Madelin will be discharged home with new home health services services for nursing, OT and PT. She will follow up with her community providers and plan of care and transport with family. Patient/Family Education Needs: Review of discharge instructions, limitations, activity, medications and discuss Ask Me Three Services Needed at Discharge: Home Health Care Services
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
[2022-04-25] MEDS: Acetaminophen 325 MG TAB PO (13:05)
--- NOTE | 2022-04-25 13:33 | PDOC.HHF2F ---
Home Health Certification Home Health Certification: 1. Encounter Date and Reason I certify that Carly Arguelles was seen by Maximiliano Osborne MD on 04/25/22 and that I had a [id number] encounter with this patient that meets the physician face to face encounter requirements. 2. Clinical Findings Supporting Skilled Need and Homebound Status I certify that home health services are medically necessary, include either intermittent nursing home and/or physical/speech therapy, and that this patient is homebound in that absences from the home require considerable and taxing effort and are infrequent or of short duration, or are attributable to the need to receive medical care. [X] (a) Attached documentation from encounter provides clinical findings supporting skilled need and homebound status (including what assistance patient requires to leave the home). The encounter with the patient was in whole, or in part, for the following medical condition, which is the primary reason for home health care: Congestive Heart Failure,NSTEMI Alf:Instruct on new medications and assess compliance. Assess for exacerbation of medical condition and instruct patient on signs and symptoms to report for early detection. Physical Therapy:To increase strength and endurance for safe ambulation following patient's instituionalization. Occupational Therapy: Evaluate and treat for patient ability to perform ALD/IADL/Self care Speech Therapy: INFECTION PREVENTION PRACTITIONER: Assist with community resources. Homebound:Pt has limitations on ability to safely ambulate outside of her home environment that require assistance of another person. 3. Certification and Authentication I certify that I composed the above information based on my clinical judgement relating to this patient's medical condition and, if applicable, clinical findings communicated to me by the NPP or inpatient physician who performed the Home Health Referral. All further orders will be obtained through Arianna Nunez (Community Based Physician - PCP)
[2022-04-25] MEDS: Heparin 500 UNITS/5 ML SYRINGE IV (14:03)
[2022-04-25] MEDS: Normal Saline Flush 10 ML SYR IVP (14:04)
--- NOTE | 2022-04-25 18:00 | PT.INDS ---
Date of service: 03/28/22 PT Notes Visit Reasons: Congestive Heart Failure,NSTEMI Physical Therapy Treatment Note Date: 04/25/2022 Dates of Service: 04/24/2022-04/25/2022 This is a clinical summary of care provided for the duration of dates listed above. No charge was made in the completion of this documentation. Precautions: Fall. Standard. Activity as tolerated. Subjective: NT. See most recent TAILINGS [employer] notes. Objective: General Observation: NT. See most recent [employer] notes. Mental Status: NT. See most recent [employer] notes. Pain: NT. See most recent [employer] notes. Vital Signs: NT. See most recent [employer] notes. ROM: Right Upper Extremity: ? Shoulder Flexion WFL. Shoulder abduction WFL. Elbow flexion WFL. Wrist flexion WFL. Functional opening and closing of hand WFL. Left Upper Extremity:? Shoulder Flexion WFL. Shoulder abduction WFL. Elbow flexion WFL. Wrist flexion WFL. Functional opening and closing of hand WFL. Right Lower Extremity: Hip flexion WFL. Hip abduction WFL. Knee flexion WFL. Ankle dorsiflexion to neutral only. Ankle plantarflexion WFL. Left Lower Extremity: Hip flexion WFL. Hip abduction WFL. Knee flexion WFL. Ankle dorsiflexion to neutral only. Ankle plantarflexion WFL. Strength: Right Upper Extremity: Shoulder flexors 4-/5. Shoulder abductors 4-/5. Elbow flexors 4-/5. Elbow extensors 4-/5. Metalworking Instructor strong. Left Upper Extremity: Shoulder flexors 4-/5. Shoulder abductors 4-/5. Elbow flexors 4-/5. Elbow extensors 4-/5. Metalworking Instructor strong. Right Lower Extremity: Hip flexors 3+/5. Hip abductors 3+/5. Knee flexors 3+/5. Knee extensors 3+/5. Ankle dorsiflexors 3-/5. Ankle plantarflexors 4-/5. Left Lower Extremity: Hip flexors 3+/5. Hip abductors 3+/5. Knee flexors 3+/5. Knee extensors 3+/5. Ankle dorsiflexors 3-/5. Ankle plantarflexors 4-/5. BED MOBILITY/TRANSFERS? Sit-stand: I? Stand-sit: I ? GAIT? Assistive Device: 4WW ? Weight bearing: Full Assist: S? Distance:? 100' x2? Deviation: Improved pacing, seated rest due to mild SOB and global fatigue, 3L O2 ? THEREX: Patient was instructed in a LE strengthening program, completed in a seated position, to include: ankle pumps, heel raises, hip abduction, LAQ and hip flexion. ? STAIRS: Patient has elevator at home, no stair training needed at this time.? Balance: Static Sitting: Normal Dynamic Sitting: Normal Static Standing: Fair Dynamic Standing: Fair 4-stage Balance Test:? Only able to maintain feet together for 10 seconds,? unable to do all three positions which signify increased fall risk. Assessment: Patient presents with clinical signs and symptoms consistent with current/admitting diagnoses that have resulted to mobility limitations, gait instability, generalized weakness, and overall ADL decline as demonstrated by the following impairment level findings: 1.? Decreased strength to B UE/LE major muscle groups 2.? Impaired sitting/standing balance 3.? Impaired activity tolerance 4.? Shortness of breath Impairments are contributing to the following functional limitations: 1.? Decline in bed mobility skills 2.? Decline in transfer skills 3.? Difficulty with ambulation without assistive device and physical assistance 4.? Increased completion time for mobility ADL performance 5.? Increased risk for falls 6.? Difficulty with managing steps alone safely Goals: Goals X1 week 1. Supine-Sit independent MET 2. Sit-Supine independent MET 3. Sit-Stand independent MET 4. Stand-Sit independent with 4WW MET 5. Bed-Chair independent with 4WW NOT MET 6. Chair-Bed independent with 4WW NOT MET 7. Independent gait on level surface with use of 4WW for at least 100 feet without report of pain nor dyspnea NOT MET 8. Good static and dynamic standing balance/tolerance NOT MET DISCHARGE RECOMMENDATIONS: ?? Home with no services [] [X] ? Home with services.? Home when medically cleared by hospitalist. ? patient will benefit from home health PT services in order to progress mobility level using least restrictive assistive ambulatory device, assess home safety, identify additional equipment needs, and establish a functional maintenance program that will increase ability of patient to remain at home. [] ? Home with outpatient PT [] [] ? SNF for continued rehabilitation [] [] ? Senior Care Care [] [] ? SNF versus LTC based on ability to participate and progress [] TREATMENT CODE/TIME: NC Thank you for the opportunity to participate in the care of this patient. Talia Moya PT, DPT, CLT [facility] [place], [place]
== END 2022-04-25 14:21 | disposition home health service (06) | DRG 280 ==
LOC: ER 17:25 → MS 18:38
PROVIDERS: Nurse Practitioner Family; Admitting Provider Family Medicine; Emergency Provider Registered Nurse Emergency; PCP Family Medicine; Visit Provider Family Medicine
DX: I11.0 Hypertensive heart disease with heart failure (principal); J44.1 Chronic obstructive pulmonary disease with (acute) exacerbation; I21.4 Non-ST elevation (NSTEMI) myocardial infarction; I50.33 Acute on chronic diastolic (congestive) heart failure; C34.32 Malignant neoplasm of lower lobe, left bronchus or lung; G89.29 Other chronic pain; J96.22 Acute and chronic respiratory failure with hypercapnia; Z99.81 Dependence on supplemental oxygen; G31.84 Mild cognitive impairment of uncertain or unknown etiology; F17.210 Nicotine dependence, cigarettes, uncomplicated; C34.91 Malignant neoplasm of unspecified part of right bronchus or lung; Z85.3 Personal history of malignant neoplasm of breast; F32.A Depression, unspecified; E78.5 Hyperlipidemia, unspecified; G43.909 Migraine, unspecified, not intractable, without status migrainosus; Z66 Do not resuscitate; K21.9 Gastro-esophageal reflux disease without esophagitis; K59.00 Constipation, unspecified
CPT/HCPCS: 36415; 51702; 71275; 80048; 80053; 82805; 85027; 87635; 93005; 94640; 96374; 96375; 97162; 97530; 99285; J1650; 83735; 83880; 84484; 85025; 93010; 93306; 94667; 99223; 99232; 99239; J2270; J2930; J3490; J7512; J7613; J7620

== ENCOUNTER 2022-05-08 12:54 | Inpatient (IN) | payer MEDICARE, MEDICAID, SELFPAY ==
[2022-05-08] VITALS (13 sets, daily range): BP systolic 115–198; BP diastolic 49–174; PULSE 70–82; RESP 13–26; TEMP 36.6–36.9; O2SAT 83–95
--- NOTE | 2022-05-08 13:15 | RT.EKG_ITS ---
APPROVED REPORT Exam: Resting ECG Reason for Exam: chest pain Patient Location: E HR:74 bpm ECG Measurements Heart Rate 74 AXIS MD 161 P 39 QRSd 77 QRS 69 QT 396 T 56 QTc 434 Conclusion Sinus rhythm...normal P axis, V-rate 60- 99 Atrial premature complexes...SV complexes w/ short R-R intvls. Sinus. PACs. Normal axis. No STEMI. I have reviewed and interpreted ECG and agree with software generated interpretation.
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
[2022-05-08 13:49] LABS: Abs Immature Grans 0.04 10^3/uL (0.0-0.06); Absolute Basophil Count 0.04 10^3/uL (0.0-0.2); Absolute Eosinophil Count 0.01 10^3/uL (0.0-0.7); Absolute Lymphocyte Count 0.41 10^3/uL (1.2-3.4); Absolute Monocyte Count 1.02 10^3/uL (0.1-0.8); Absolute Neutrophil Count 9.67 10^3/uL (1.2-6.7); Basophils % 0.4; Eosinophils % 0.1; HCT 33.4 % (36.0-46.0); HGB 9.9 g/dL (11.2-15.7); Immature Grans % 0.4; Lymphocytes % 3.7; MCH 28.4 pg (27.0-33.0); MCHC 29.6 % (32.0-36.0); MCV 96 fL (80-95); MPV 11.8 fL (8.0-11.0); Monocytes % 9.1; Neutrophils % 86.3; Platelet Count 188 10^3/uL (130-400); RBC 3.49 10^6/uL (3.93-5.22); RDW 16.4 % (11.7-14.6); RDW-SD 57.8 fL; WBC 11.21 10^3/uL (4.4-10.8)
[2022-05-08 14:09] LABS: ALT 188 U/L (14-59); AST 155 U/L (15-37); Albumin 3.3 g/dL (3.4-5.0); Alkaline Phosphatase 196 U/L (46-116); Anion Gap 2.2 mmol/L (3-11); BUN 51 mg/dL (7-18); Bilirubin, Total 0.3 mg/dL (0.2-1.0); CO2 35.8 mmol/L (21.0-32.0); Calcium 8.6 mg/dL (8.5-10.1); Chloride 96 mmol/L (98-107); Creatine Kinase 814 U/L (26-192); Estimated GFR 24.29 (mL/min/1.73m2); Glucose 129 mg/dL (74-106); Lipase 40 U/L (73-393); Magnesium 2.6 mg/dL (1.8-2.4); NT-proBNP 2335 pg/mL (<300); Potassium 5.7 mmol/L (3.5-5.1); Sodium 134 mmol/L (136-145); Total Protein 5.8 g/dL (6.4-8.2)
[2022-05-08 14:11] LABS: Troponin I 1164 ng/L (<or=60)
--- NOTE | 2022-05-08 15:22 | DI.CT_ITS ---
Exam(s) CT CHEST/ABD/PEL WO EXAM: CT CHEST/ABD/PEL WO CLINICAL HISTORY: hypoxia, upper abd pain, r/o pneumonia, gastritis. TECHNIQUE: Imaging Protocol: Axial computed tomography images with coronal and sagittal reformatted images were created and reviewed CONTRAST MATERIAL: Intravenous: none Oral: None COMPARISON: CT CT CHEST/ABD WO from 03/28/[address] CHEST PE CTA from 04/22/2022 FINDINGS: CHEST: LUNGS: Small nodular infiltrate in the left upper lobe measuring 9 x 8 millimeters is unchanged. Spi culated pleural base nodule located medially in the right upper lobe is also unchanged from 2. Small nodular infiltrate in the apical posterior segment of the left upper lobe is unchanged. At electasis-mild infiltrate in lingular segment left lung is again noted, somewhat decreased in size. No left pleural effusion. In the opposite-right lung there is a peripherally calcified loculated pos teriorly located pleural effusion again noted, unchanged. Overlying ribs appear similar to the previ ous study. MEDIASTINUM: Left supra clavi in Port-A-Cath again noted. Distal tip is in the lower SVC satisfactor y position. Prominent area of hypodensity in the right thyroid lobe is unchanged. No prominent janes r nor mediastinal adenopathy. CARDIAC: Cardiomegaly again noted. No pericardial effusion. Caliber thoracic aorta is upper normal. Pulmonary arteries again noted be prominent size. OSSEOUS: No new significant osseous lesions.. ABDOMEN: There is no ascites. LIVER: There are no obvious focal hepatic lesions evident of this noninfused study. GALLBLADDER/BILIARY: Gallbladder is again noted to be surgically absent. CBD is not dilated. PANCREAS: No evidence of obvious pancreatic mass nor dilatation of the pancreatic duct. SPLEEN: Size is upper normal. Splenic capsule calcifications again noted as well as single small int ernal calcification in the spleen. ADRENALS: There are no significant adrenal masses. KIDNEYS: No calculi nor hydronephrosis. No obvious solid renal masses. ABDOMINAL AORTA: Calcified but not enlarged. LYMPH NODES: There is no retroperitoneal nor para-aortic adenopathy. ABDOMINAL WALL/GI: No evidence of significant anterior abdominal wall nor inguinal hernia. No evidence of obvious small bowel obstruction. PELVIS: LYMPH NODES: There is no intrapelvic nor inguinal adenopathy. GI: Appendix difficult to identify is a separate structure but no obvious acute appendicitis.No evide nce of sigmoid diverticulitis. URINARY BLADDER: No calculi nor obvious masses evident REPRODUCTIVE: Uterus is surgically absent. No abnormal adnexal masses. No free fluid in the pelvis. OSSEOUS: No significant osseous lesions. IMPRESSION: 1. Stable appearance of the previously described bilateral pulmonary findings and loculated right ple ural effusion without significant change compared to 03/28/2020. 2. Gallbladder is again noted be surgically absent. CBD not dilated. 3. No obvious bowel obstruction and no ascites. Uterus is surgically absent. No abnormal adnexal masses. No free fluid. Report called by myself to ER provider. RADIATION DOSE DELIVERED: 1,204.9mGy.cm Total DLP DATA REPOSITORY: All CT scans at this facility are submitted to the National Radiology Data Registry (NRDR) Dose Index Registry (DIR) with the [employer] (ACR). RADIATION OPTIMIZATION: All CT scans at this facility use at least one of these dose optimization te chniques: automated exposure control; mA and/or kV adjustment per patient size (includes targeted exa ms where dose is matched to clinical indication); or iterative reconstruction.
[2022-05-08] MEDS: Normal Saline 250 ML 500 ML IV (16:43)
--- NOTE | 2022-05-08 17:00 | RT.EKG_ITS ---
APPROVED REPORT Exam: Resting ECG Reason for Exam: elevated troponin Patient Location: E HR:74 bpm ECG Measurements Heart Rate 74 AXIS AK 149 P 33 QRSd 84 QRS 67 QT 401 T 71 QTc 442 Conclusion Sinus rhythm...normal P axis, V-rate 60- 99 Atrial premature complex...SV complex w/ short R-R interval. Sinus. Normal axis. PACs. No STEMI. I have reviewed and interpreted ECG and agree with software generated interpretation.
[2022-05-08 17:36] LABS: Bilirubin Negative (Negative); Blood Negative (Negative); Clarity Clear (Clear); Glucose Negative (Negative); Ketones Negative (Negative); Leukocyte Esterase Negative (Negative); Nitrite Negative (Negative); Urobilinogen 0.2 EU/dL (Up TO 0.2); pH 5.5 (5-8)
[2022-05-08 17:38] LABS: Troponin I 2700 ng/L (<or=60)
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
[2022-05-08 19:19] LABS: Source Nasal/Nares
--- NOTE | 2022-05-08 20:18 | NUR.NOTE ---
Patient presented to the medical surgical unit in mild-moderate respiratory distress. Utilizing 2L oxygen via nasal cannula saturating at 91%. Patient is unble at this time to make complete sentence, Noted with some periods of twitching. Patient state she is uncertain if this is her baseline. CC made aware at this time. Patient made comfortable in bed. Patient will be closely monitored throughout the night
[2022-05-08] MEDS: guaiFENesin 600 MG TABCR 1200 MG PO (20:28)
[2022-05-08] MEDS: Albuterol/Ipratropium 3 ML UPD VIAL UPD (20:28)
[2022-05-08] MEDS: Omeprazole 20 MG CAPCR 40 MG PO (20:28)
[2022-05-08] MEDS: Enoxaparin 30 MG/0.3 ML SYR SC (21:05)
[2022-05-08] MEDS: Normal Saline Flush 10 ML SYR (21:05)
[2022-05-08 21:43] LABS: Troponin I 3653 ng/L (<or=60)
[2022-05-09] VITALS (19 sets, daily range): BP systolic 112–166; BP diastolic 64–78; PULSE 70–85; RESP 4–18; TEMP 36.6–37.4; O2SAT 91–98
[2022-05-09 00:04] LABS: COVID-19 PCR Negative (Negative)
[2022-05-09] MEDS: Normal Saline Flush 10 ML SYR IVP ×3 (06:25→12:55)
[2022-05-09] MEDS: Acetaminophen 325 MG TAB PO ×3 (06:31→17:42)
[2022-05-09 06:55] LABS: Abs Immature Grans 0.02 10^3/uL (0.0-0.06); Absolute Basophil Count 0.04 10^3/uL (0.0-0.2); Absolute Lymphocyte Count 0.47 10^3/uL (1.2-3.4); Absolute Neutrophil Count 7.93 10^3/uL (1.2-6.7); Basophils % 0.4; Eosinophils % 1.1; HCT 30.4 % (36.0-46.0); HGB 9.5 g/dL (11.2-15.7); Immature Grans % 0.2; MCH 28.8 pg (27.0-33.0); MCHC 31.3 % (32.0-36.0); MCV 92 fL (80-95); MPV 11.3 fL (8.0-11.0); Monocytes % 9.5; Neutrophils % 83.8; Platelet Count 164 10^3/uL (130-400); RDW 16.2 % (11.7-14.6); RDW-SD 55.5 fL; WBC 9.46 10^3/uL (4.4-10.8)
[2022-05-09 07:06] LABS: ALT 112 U/L (14-59); AST 75 U/L (15-37); Albumin 2.8 g/dL (3.4-5.0); Alkaline Phosphatase 148 U/L (46-116); Anion Gap -1.7 mmol/L (3-11); BUN 33 mg/dL (7-18); Bilirubin, Total 0.4 mg/dL (0.2-1.0); CO2 38.7 mmol/L (21.0-32.0); CREATININE 1.2 mg/dL (0.55-1.02); Calcium 8.8 mg/dL (8.5-10.1); Chloride 101 mmol/L (98-107); Creatine Kinase 473 U/L (26-192); Glucose 137 mg/dL (74-106); Magnesium 2.5 mg/dL (1.8-2.4); Potassium 4.5 mmol/L (3.5-5.1); Sodium 138 mmol/L (136-145); Total Protein 5.2 g/dL (6.4-8.2)
[2022-05-09] MEDS: Albuterol/Ipratropium 3 ML UPD VIAL UPD ×3 (07:36→20:13)
[2022-05-09 07:44] LABS: Troponin I 3148 ng/L (<or=60)
[2022-05-09] MEDS: Spironolactone 25 MG TAB PO (08:15)
[2022-05-09] MEDS: Sucralfate 1 GM TAB PO ×2 (08:15→16:39)
[2022-05-09] MEDS: Omeprazole 20 MG CAPCR 40 MG PO ×2 (08:15→20:13)
[2022-05-09] MEDS: guaiFENesin 600 MG TABCR 1200 MG PO ×2 (08:15→20:13)
[2022-05-09] MEDS: Torsemide 20 MG TAB 40 MG PO (08:15)
[2022-05-09] MEDS: predniSONE 5 MG TAB 2.5 MG PO (08:15)
[2022-05-09] MEDS: DULoxetine 30 MG CAP 60 MG PO (08:16)
[2022-05-09] MEDS: Nicotine 21 MG/24 HR PATCH TD (08:20)
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
[2022-05-09 12:52] LABS: BE (Venous) 11 mmol/L (-2-3); HCO3 (Venous) 36 mmol/L (23-28); O2 Sat (Venous) 76 %; TCO2 (Venous) 34 mmol/L (24-29); pCO2 (Venous) 58 mmHg (41-51); pO2 (Venous) 39 mmHg
[2022-05-09 12:54] LABS: HCT 32.3 % (36.0-46.0); HGB 9.7 g/dL (11.2-15.7)
--- NOTE | 2022-05-09 16:53 | PGE_ITS ---
Date of Service Date of service: 05/09/22 Time of Service: 10:35 Assessment and Plan Assessment and plan (1) NSTEMI (non-ST elevated myocardial infarction): Status: Acute Assessment and plan: Secondary to demand ischemia in setting of questionable GI bleed, hypoxemia and HUNG. Troponin peaked at 3653 and now trending down: 3148. Telemetry. No CP but concerned that epigastric pain, if not secondary to PUD, could be d/t ischemia. Optimize resp status and renal status. Monitor H/H. (2) Transaminitis: Status: Acute Assessment and plan: Likely d/t hepatic congestion. LFT's now improving. No ai CHF; Echo on 04/23/22 showed EF of 60%. . (3) Hyperkalemia: Status: Acute Assessment and plan: Now normal w/o intervention. (4) Epigastric abdominal pain: Status: Acute Assessment and plan: No pain/tenderness today. No melena or hematochezia noted. (5) Anemia: Status: Chronic Assessment and plan: Anemia of chronic disease with concern of acute vs subacute blood loss. Monitor H/H: 9.9 > 9.5 > 9.7. (6) COPD (chronic obstructive pulmonary disease): Assessment and plan: Cont Duonbebs and prn albuterol. Stable now on 3L O2 per NC. (7) 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: Assessment and plan: CT w/o any significant changes and no new findings. (8) Chronic respiratory failure with hypoxia and hypercapnia: Status: Acute Assessment and plan: Attempt to maintain O2 saturations with no more than 2L O2 per NC d/t propensity to retain CO2. VBG: pH 7.4. pCO2 58 (improved from previous values at last hositalization). Subjective Subjective Patient reports: feels better (still tired), tolerating a regular diet and afebrile; denies diarrhea, nausea, vomiting or shortness of breath Exam Narrative Exam Narrative: Awake. Sitting up in bed. Pleasant and conversant. Const General: no acute distress Nutritional Appearance: average body habitus Orientation: alert and oriented x3 Eyes General: appearance normal, both eyes and all related structures Sclera: sclerae normal Neck Neck: no JVD Resp Effort & Inspection: normal respiratory effort Auscultation: clear to auscultation bilaterally Cardio Rate: regular rate Rhythm: regular rhythm Heart Sounds: S1 normal and S2 normal GI Palpation: soft and nontender Auscultation: normal bowel sounds Skin General skin exam: no rashes or lesions noted Neuro General: moves all extremities Extrem General: no calf tenderness and edema Laterality: bilateral (nonpitting.) Psych Appearance: grossly normal Speech and Movement: speech and movement normal Mood: congruent mood Affect: normal affect Objective Last Vital Signs Temp 36.7 C 05/09/22 14:42 Pulse 85 05/09/22 15:00 Resp 18 05/09/22 14:42 BP 118/64 05/09/22 14:42 Pulse Ox 94 05/09/22 16:08 Laboratory Results - last 24 hr 05/08/22 05/08/22 05/08/22 17:12 17:20 19:08 WBC RBC Hgb Hct MCV MCH MCHC RDW Plt Count MPV Immature Gran % Neutrophils % Lymphocytes % Monocytes % Eosinophils % Basophils % Nucleated RBC % Absolute Neutrophils Absolute Lymphocytes Absolute Monocytes Absolute Eosinophils Absolute Basophils VBG pH VBG pCO2 VBG pO2 VBG HCO3 VBG Total CO2 VBG O2 Saturation VBG Base Excess Sodium Potassium Chloride Carbon Dioxide Anion Gap BUN Creatinine Estimated GFR/1.73 m2 Glucose Calcium Magnesium Total Bilirubin AST ALT Alkaline Phosphatase Creatine Kinase Troponin I 2700 H* Total Protein Albumin Urine Color Yellow Urine Clarity Clear Urine pH 5.5 Ur Specific [place] 1.020 Urine Protein Negative Urine Ketones Negative Urine Blood Negative Urine Nitrite Negative Urine Bilirubin Negative Urine Urobilinogen 0.2 Ur Leukocyte Esterase Negative Urine Glucose Negative COVID-19 Source Nasal/Nares SARS-CoV-2 (PCR) Negative 05/08/22 05/09/22 05/09/22 20:40 06:30 06:30 WBC 9.46 RBC 3.30 L Hgb 9.5 L Hct 30.4 L MCV 92 D MCH 28.8 MCHC 31.3 L RDW 16.2 H Plt Count 164 MPV 11.3 H Immature Gran % 0.2 Neutrophils % 83.8 Lymphocytes % 5.0 Monocytes % 9.5 Eosinophils % 1.1 Basophils % 0.4 Nucleated RBC % 0.0 Absolute Neutrophils 7.93 H Absolute Lymphocytes 0.47 L Absolute Monocytes 0.90 H Absolute Eosinophils 0.10 Absolute Basophils 0.04 VBG pH VBG pCO2 VBG pO2 VBG HCO3 VBG Total CO2 VBG O2 Saturation VBG Base Excess Sodium 138 Potassium 4.5 D Chloride 101 Carbon Dioxide 38.7 H Anion Gap -1.7 L BUN 33 H Creatinine 1.2 H Estimated GFR/1.73 m2 43.80 Glucose 137 H Calcium 8.8 Magnesium 2.5 H Total Bilirubin 0.4 AST 75 H ALT 112 H Alkaline Phosphatase 148 H Creatine Kinase 473 H Troponin I 3653 H* Total Protein 5.2 L Albumin 2.8 L Urine Color Urine Clarity Urine pH Ur Specific [place] Urine Protein Urine Ketones Urine Blood Urine Nitrite Urine Bilirubin Urine Urobilinogen Ur Leukocyte Esterase Urine Glucose COVID-19 Source SARS-CoV-2 (PCR) 05/09/22 05/09/22 05/09/22 06:30 12:44 12:44 WBC RBC Hgb 9.7 L Hct 32.3 L MCV MCH MCHC RDW Plt Count MPV Immature Gran % Neutrophils % Lymphocytes % Monocytes % Eosinophils % Basophils % Nucleated RBC % Absolute Neutrophils Absolute Lymphocytes Absolute Monocytes Absolute Eosinophils Absolute Basophils VBG pH 7.40 VBG pCO2 58 H VBG pO2 39 VBG HCO3 36 H VBG Total CO2 34 H VBG O2 Saturation 76 VBG Base Excess 11 H Sodium Potassium Chloride Carbon Dioxide Anion Gap BUN Creatinine Estimated GFR/1.73 m2 Glucose Calcium Magnesium Total Bilirubin AST ALT Alkaline Phosphatase Creatine Kinase Troponin I 3148 H* Total Protein Albumin Urine Color Urine Clarity Urine pH Ur Specific [place] Urine Protein Urine Ketones Urine Blood Urine Nitrite Urine Bilirubin Urine Urobilinogen Ur Leukocyte Esterase Urine Glucose COVID-19 Source SARS-CoV-2 (PCR)
--- NOTE | 2022-05-09 16:59 | CHAPLAIN ---
Madelin was resting in bed when I visited. I explained my role and offered support. She told me about living in the [facility] Apartments that were recently renovated and she likes it there. She's in touch with family who are supportive, she said.
[2022-05-10] VITALS (13 sets, daily range): BP systolic 128–173; BP diastolic 52–81; PULSE 73–86; RESP 8–25; TEMP 36.6–37.4; O2SAT 93–98
[2022-05-10] MEDS: Acetaminophen 325 MG TAB PO ×2 (03:03→22:35)
[2022-05-10 06:25] LABS: BE (Venous) 11 mmol/L (-2-3); HCO3 (Venous) 36 mmol/L (23-28); O2 Sat (Venous) 73 %; TCO2 (Venous) 34 mmol/L (24-29); pCO2 (Venous) 57 mmHg (41-51); pO2 (Venous) 38 mmHg
[2022-05-10 06:27] LABS: Abs Immature Grans 0.02 10^3/uL (0.0-0.06); Absolute Basophil Count 0.04 10^3/uL (0.0-0.2); Absolute Eosinophil Count 0.16 10^3/uL (0.0-0.7); Absolute Lymphocyte Count 0.74 10^3/uL (1.2-3.4); Absolute Monocyte Count 0.77 10^3/uL (0.1-0.8); Basophils % 0.4; Eosinophils % 1.8; HCT 32.2 % (36.0-46.0); HGB 10.1 g/dL (11.2-15.7); Immature Grans % 0.2; Lymphocytes % 8.1; MCH 28.5 pg (27.0-33.0); MCHC 31.4 % (32.0-36.0); MCV 91 fL (80-95); MPV 10.9 fL (8.0-11.0); Monocytes % 8.4; Neutrophils % 81.1; Platelet Count 172 10^3/uL (130-400); RBC 3.55 10^6/uL (3.93-5.22); RDW 16.1 % (11.7-14.6); RDW-SD 53.4 fL; WBC 9.13 10^3/uL (4.4-10.8)
[2022-05-10 06:45] LABS: ALT 80 U/L (14-59); AST 37 U/L (15-37); Alkaline Phosphatase 129 U/L (46-116); Anion Gap 3.8 mmol/L (3-11); BUN 22 mg/dL (7-18); Bilirubin, Total 0.3 mg/dL (0.2-1.0); CO2 35.2 mmol/L (21.0-32.0); Calcium 9.2 mg/dL (8.5-10.1); Chloride 100 mmol/L (98-107); Estimated GFR 54.05 (mL/min/1.73m2); Glucose 113 mg/dL (74-106); Potassium 4.5 mmol/L (3.5-5.1); Sodium 139 mmol/L (136-145); Total Protein 5.8 g/dL (6.4-8.2)
[2022-05-10] MEDS: Albuterol/Ipratropium 3 ML UPD VIAL UPD ×3 (07:42→19:53)
[2022-05-10] MEDS: guaiFENesin 600 MG TABCR 1200 MG PO ×2 (08:15→19:50)
[2022-05-10] MEDS: Spironolactone 25 MG TAB PO (08:16)
[2022-05-10] MEDS: Omeprazole 20 MG CAPCR 40 MG PO ×2 (08:16→19:50)
[2022-05-10] MEDS: predniSONE 5 MG TAB 2.5 MG PO (08:16)
[2022-05-10] MEDS: Nicotine 21 MG/24 HR PATCH TD (08:16)
[2022-05-10] MEDS: Torsemide 20 MG TAB 40 MG PO (08:16)
[2022-05-10] MEDS: DULoxetine 30 MG CAP 60 MG PO (08:16)
[2022-05-10] MEDS: Sucralfate 1 GM TAB PO ×2 (08:16→16:32)
[2022-05-10] MEDS: Normal Saline Flush 10 ML SYR IVP (08:17)
[2022-05-10] MEDS: Ondansetron O.D.T. 4 MG TABEF PO (11:20)
--- NOTE | 2022-05-10 13:02 | W.PM.PROGNOT ---
Date of Service Date of service: 05/10/22 Time of Service: 13:05 Assessment and Plan Assessment and plan (1) NSTEMI (non-ST elevated myocardial infarction): Status: Acute Assessment and plan: Secondary to demand ischemia in setting of questionable GI bleed, hypoxemia and HUNG. Troponin peaked at 3653 and then trended down: 3148. Telemetry. No CP but concerned that epigastric pain, if not secondary to PUD, could be d/t ischemia. Zofran has helped with the epigastric discomfort. Optimize resp status and renal status. Monitor H/H. (2) Transaminitis: Status: Acute Assessment and plan: Likely d/t hepatic congestion. LFT's now improving. No ai CHF; Echo on 04/23/22 showed EF of 60%. . (3) Hyperkalemia: Status: Acute Assessment and plan: Now normal w/o intervention. (4) Epigastric abdominal pain: Status: Acute Assessment and plan: No pain/tenderness today but has nausea. No melena or hematochezia noted. Question of some degree of constipation contributing; scheduled Miralax (5) Anemia: Status: Chronic Assessment and plan: Anemia of chronic disease with concern of acute vs subacute blood loss. Monitor H/H: 9.9 > 9.5 > 9.7 > 10.1 (6) COPD (chronic obstructive pulmonary disease): Assessment and plan: Cont Duonbebs and prn albuterol. Stable now at baseline on 2L O2 per NC. (7) 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: Assessment and plan: CT w/o any significant changes and no new findings. (8) Chronic respiratory failure with hypoxia and hypercapnia: Status: Acute Assessment and plan: Attempt to maintain O2 saturations with no more than 2L O2 per NC d/t propensity to retain CO2. VBG: pH 7.4. pCO2 58 (improved from previous values at last hositalization). Subjective Subjective Patient reports: no new complaints, tolerating a regular diet, nausea and afebrile; denies diarrhea, vomiting or shortness of breath Interval history since last seen: Last BM was several days ago. Exam Narrative Exam Narrative: Awake. Sitting up in bed. Pleasant and conversant. Const General: no acute distress Nutritional Appearance: average body habitus Orientation: alert and oriented x3 Eyes General: appearance normal, both eyes and all related structures Sclera: sclerae normal Neck Neck: no JVD Resp Effort & Inspection: normal respiratory effort Auscultation: clear to auscultation bilaterally Cardio Rate: regular rate Rhythm: regular rhythm Heart Sounds: S1 normal and S2 normal GI Inspection: distended Palpation: soft and nontender Auscultation: normal bowel sounds Skin General skin exam: no rashes or lesions noted Neuro General: moves all extremities Extrem General: no calf tenderness and edema Laterality: bilateral (nonpitting.) Psych Appearance: grossly normal Speech and Movement: speech and movement normal Mood: congruent mood Affect: normal affect Objective Last Vital Signs Temp 37.4 C 05/10/22 11:15 Pulse 83 05/10/22 11:15 Resp 24 05/10/22 11:15 BP 138/52 L 05/10/22 11:15 Pulse Ox 96 05/10/22 11:15 Laboratory Results - last 24 hr 05/10/22 05/10/22 05/10/22 06:20 06:20 06:20 WBC 9.13 RBC 3.55 L Hgb 10.1 L Hct 32.2 L MCV 91 MCH 28.5 MCHC 31.4 L RDW 16.1 H Plt Count 172 MPV 10.9 Immature Gran % 0.2 Neutrophils % 81.1 Lymphocytes % 8.1 Monocytes % 8.4 Eosinophils % 1.8 Basophils % 0.4 Nucleated RBC % 0.0 Absolute Neutrophils 7.40 H Absolute Lymphocytes 0.74 L Absolute Monocytes 0.77 Absolute Eosinophils 0.16 Absolute Basophils 0.04 VBG pH 7.40 VBG pCO2 57 H VBG pO2 38 VBG HCO3 36 H VBG Total CO2 34 H VBG O2 Saturation 73 VBG Base Excess 11 H Sodium 139 Potassium 4.5 Chloride 100 Carbon Dioxide 35.2 H Anion Gap 3.8 BUN 22 H Creatinine 1.0 Estimated GFR/1.73 m2 54.05 Glucose 113 H Calcium 9.2 Total Bilirubin 0.3 AST 37 ALT 80 H Alkaline Phosphatase 129 H Total Protein 5.8 L Albumin 3.0 L
[2022-05-10] MEDS: Polyethylene Glycol 3350 17 GM PACKET PO (13:28)
[2022-05-11] VITALS (11 sets, daily range): BP systolic 121–145; BP diastolic 68–80; PULSE 73–81; RESP 8–22; TEMP 36.4–37; O2SAT 92–98
[2022-05-11] MEDS: Acetaminophen 325 MG TAB PO ×2 (03:09→10:42)
[2022-05-11] MEDS: Ondansetron O.D.T. 4 MG TABEF PO (03:32)
[2022-05-11] MEDS: Normal Saline Flush 10 ML SYR IVP (05:41)
[2022-05-11 05:58] LABS: HCT 30.6 % (36.0-46.0); HGB 9.3 g/dL (11.2-15.7)
[2022-05-11] MEDS: Nicotine 21 MG/24 HR PATCH TD (07:54)
[2022-05-11] MEDS: Polyethylene Glycol 3350 17 GM PACKET PO (07:54)
[2022-05-11] MEDS: Sucralfate 1 GM TAB PO ×2 (07:54→16:38)
[2022-05-11] MEDS: Spironolactone 25 MG TAB PO (07:54)
[2022-05-11] MEDS: guaiFENesin 600 MG TABCR 1200 MG PO ×2 (07:54→19:43)
[2022-05-11] MEDS: Omeprazole 20 MG CAPCR 40 MG PO ×2 (07:54→19:43)
[2022-05-11] MEDS: predniSONE 5 MG TAB 2.5 MG PO (07:55)
[2022-05-11] MEDS: Torsemide 20 MG TAB 40 MG PO (07:55)
[2022-05-11] MEDS: DULoxetine 30 MG CAP 60 MG PO (07:55)
[2022-05-11] MEDS: Albuterol/Ipratropium 3 ML UPD VIAL UPD ×3 (08:40→19:44)
--- NOTE | 2022-05-11 13:32 | PGE_ITS ---
Date of Service Date of service: 05/11/22 Time of Service: 13:40 Assessment and Plan Assessment and plan (1) NSTEMI (non-ST elevated myocardial infarction): Status: Acute Assessment and plan: Secondary to demand ischemia in setting of questionable GI bleed, hypoxemia and HUNG. Troponin peaked at 3653 and then trended down: 3148. Telemetry. No CP but concerned that epigastric pain, if not secondary to PUD, could be d/t ischemia. Zofran has helped with the epigastric discomfort and nausea but there is some persistence. Optimize resp status and renal status. Monitor H/H. (2) Transaminitis: Status: Acute Assessment and plan: Likely d/t hepatic congestion. LFT's now improving. No ai CHF; Echo on 04/23/22 showed EF of 60%. . (3) Hyperkalemia: Status: Acute Assessment and plan: Now normal w/o intervention. (4) Epigastric abdominal pain: Status: Acute Assessment and plan: She has had nausea relieved with Zofran Intermittent epigastric mild pain not hindering her oral intact; present today. No melena or hematochezia noted. Question of some degree of constipation contributing; scheduled Miralax Cont prn Zofran. Cont PPI and carafate. (5) Anemia: Status: Chronic Assessment and plan: Anemia of chronic disease with concern of acute vs subacute blood loss. Monitor H/H: 9.9 > 9.5 > 9.7 > 10.1>9.3 H/H in AM No melena or hematochezia noted. (6) COPD (chronic obstructive pulmonary disease): Assessment and plan: Cont Duonbebs and prn albuterol. Stable now at baseline on 2L O2 per NC. (7) 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: Assessment and plan: CT w/o any significant changes and no new findings. (8) Chronic respiratory failure with hypoxia and hypercapnia: Status: Acute Assessment and plan: Attempt to maintain O2 saturations with no more than 2L O2 per NC d/t propensity to retain CO2. VBG: pH 7.4. pCO2 58 (improved from previous values at last hositalization). Subjective Subjective Patient reports: no new complaints, still having pain, tolerating a regular di et, nausea and afebrile Interval history since last seen: Mild epigastric discomfort Exam Narrative Exam Narrative: Sitting in recliner. Const General: no acute distress Nutritional Appearance: average body habitus Orientation: alert and oriented x3 Eyes General: appearance normal, both eyes and all related structures Sclera: sclerae normal Neck Neck: no JVD Resp Effort & Inspection: normal respiratory effort Auscultation: clear to auscultation bilaterally Cardio Rate: regular rate Rhythm: regular rhythm Heart Sounds: S1 normal and S2 normal GI Inspection: distended Palpation: soft and tender in the epigastrum (mild w/o guarding. ) Auscultation: normal bowel sounds Skin General skin exam: no rashes or lesions noted Neuro General: moves all extremities Extrem General: no calf tenderness and edema Laterality: bilateral (nonpitting.) Psych Appearance: grossly normal Speech and Movement: speech and movement normal Mood: congruent mood Affect: normal affect Objective Last Vital Signs Temp 36.5 C 05/11/22 11:46 Pulse 78 05/11/22 11:46 Resp 18 05/11/22 11:46 BP 122/68 05/11/22 11:46 Pulse Ox 93 05/11/22 11:46 Laboratory Results - last 24 hr 05/11/22 05:46 Hgb 9.3 L Hct 30.6 L
[2022-05-12] VITALS (12 sets, daily range): BP systolic 104–148; BP diastolic 55–73; PULSE 72–84; RESP 4–20; TEMP 36.6–37.2; O2SAT 94–98
[2022-05-12] MEDS: Acetaminophen 325 MG TAB PO ×3 (03:35→22:22)
[2022-05-12 06:17] LABS: HCT 32.9 % (36.0-46.0); HGB 9.8 g/dL (11.2-15.7)
[2022-05-12] MEDS: Ondansetron O.D.T. 4 MG TABEF PO ×2 (06:22→15:20)
[2022-05-12] MEDS: Albuterol/Ipratropium 3 ML UPD VIAL UPD ×3 (07:54→20:48)
[2022-05-12] MEDS: Polyethylene Glycol 3350 17 GM PACKET PO ×2 (07:57→20:48)
[2022-05-12] MEDS: Nicotine 21 MG/24 HR PATCH TD (07:57)
[2022-05-12] MEDS: Sucralfate 1 GM TAB PO ×2 (07:58→16:07)
[2022-05-12] MEDS: Torsemide 20 MG TAB 40 MG PO (07:58)
[2022-05-12] MEDS: Omeprazole 20 MG CAPCR 40 MG PO ×2 (07:58→20:48)
[2022-05-12] MEDS: Spironolactone 25 MG TAB PO (07:58)
[2022-05-12] MEDS: DULoxetine 30 MG CAP 60 MG PO (07:58)
[2022-05-12] MEDS: predniSONE 5 MG TAB 2.5 MG PO (07:58)
[2022-05-12] MEDS: guaiFENesin 600 MG TABCR 1200 MG PO ×2 (07:58→20:49)
[2022-05-12] MEDS: Normal Saline Flush 10 ML SYR IVP (08:00)
[2022-05-12 08:25] LABS: Troponin I 1245 ng/L (<or=60)
--- NOTE | 2022-05-12 09:26 | PDOC.CMPRO ---
- If Service Date Differs Date of service: 05/12/22 Time of Service: 09:26 Care Management Progress Note S/O:Madelin was sitting up in a chair when CM met with her. She was pleasant and appeared to be in good spirits. Madelin stated that she was doing ok at home until she had a heart attack. In discussing discharge plans, Madelin stated that she really wants to go back home when discharged. She shared that her daughter wants her to go to rehab but she wants to try to remain at home if she can. I just want to try it one more time. Clinically Madelin is doing well. She has not had any chest pain, her vital signs are stable and her troponins are trending down. She is to have additional testing which will include an Echocardiogram and a resting MPI scan today or tomorrow. A: Madelin is a 76 year old woman admitted with an NSTEMI and CHF on 05/15/22 P:Madelin will likely be discharged home with a resumption of home health services for nursing and OT. She will follow up with her community providers and plan of care and transport with family. CM will support Madelin and assess for discharge planning issues.
--- NOTE | 2022-05-12 10:07 | NUR.NOTE ---
This automatic typewriter inspector went to MS floor to change patient telemetry unit battery. Patient requested Tylenol. Charge nurse notified. Nursing Note:
--- NOTE | 2022-05-12 10:18 | PGE_ITS ---
Date of Service Date of service: 05/12/22 Time of Service: 10:18 Assessment and Plan Assessment and plan (1) NSTEMI (non-ST elevated myocardial infarction): Status: Acute Assessment and plan: Likely demand ischemia type 2 NSTEMI; however, her troponin's peaked higher this admission than last time and she has not had any MPI study to evaluate for ischemia. She is telling me that would still want intervention done if needed to treat for CAD/ischemic HD. I told her that I will resume her atorvastatin now that her transaminitis has resolved and I will optimize her for anti-ischemia w/ BB and long acting nitrates and we will get a resting MPI study and echocardiogram. Once she has recovered then I will plan for OP stress MPI however, given her lung cancer I am not sure that any cardiology will consider PCI in her. Also we have not resolved the source of her anemia. I will cautiously put her back on an aspirin and make sure that her GI is protected w/ carafate and PPI. (2) Transaminitis: Status: Acute Assessment and plan: Likely d/t hepatic congestion. LFT's now improving. No ai CHF; Echo on 04/23/22 showed EF of 60%. However, in light of her recent elevated troponin I level she will need updated echocardiogram (our instrumentation supervisor is off today but should be back tomorrow) . (3) Hyperkalemia: Status: Acute Assessment and plan: Now normal w/o intervention. (4) Epigastric abdominal pain: Status: Acute Assessment and plan: no epigastric abdominal pain. In light of her recent troponin I elevation, our surgeons and nurse anesthetists will not consent to doing EGD, therefore continue empiric treatment for PUD w/ carafate and omeprazole (5) Anemia: Status: Chronic Assessment and plan: Anemia of chronic disease with concern of acute vs subacute blood loss. Monitor H/H: 9.9 > 9.5 > 9.7 > 10.1>9.3>9.8 monitor daily hemogram No melena or hematochezia noted. (6) COPD (chronic obstructive pulmonary disease): Assessment and plan: Cont Duonbebs and prn albuterol and Breztri Stable now at baseline on 2L O2 per NC. (7) 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: Assessment and plan: CT w/o any significant changes and no new findings. Patient has been on palliative chemotherapy w/ Pembrolizumab (8) Chronic respiratory failure with hypoxia and hypercapnia: Status: Acute Assessment and plan: Attempt to maintain O2 saturations with no more than 2L O2 per NC d/t propensity to retain CO2. Subjective Subjective Interval history since last seen: Carly denies any CP. She is not any more dyspneic than her usual. At rest she is not dyspneic. She is concerned that she has had couple episodes now in which she will find herself waking up in another room and has had no recollection as to how she got there. With this admission she says that her daughter found her after she had been down for a day. I told her that we do not know exactly why this has happened but given her chronic hypoxia and hypercapnea I suspect that she probably got hypercapneic enough that she developed decreased LOC. She is not having any abdominal pains today. There is a question of recent GI bleeding as her daughter reported black stools. Patient has not had BM since admission but stool was brown w/ trace heme positive per ER doctor. Exam Narrative Exam Narrative: Elderly female sitting up in her chair alert and oriented person place and circumstance Lungs with some coarse bilateral rhonchi Heart is regular no appreciable murmur rub Abdomen soft and nontender Legs: no cyanosis or edema Objective Last Vital Signs Temp 36.6 C 05/12/22 07:20 Pulse 78 05/12/22 08:04 Resp 20 05/12/22 08:04 BP 117/63 05/12/22 07:20 Pulse Ox 98 05/12/22 08:04 Laboratory Results - last 24 hr 05/12/22 05/12/22 05/12/22 06:00 06:00 07:58 Hgb 9.8 L Hct 32.9 L Troponin I 1245 H* Add-On Test Request TNP
[2022-05-12 11:22] LABS: Lab Add On Test DONE
[2022-05-12 11:44] LABS: NT-proBNP 1831 pg/mL (<300)
--- NOTE | 2022-05-12 14:54 | W.PM.PROGNOT ---
Date of Service Date of service: 05/12/22 Time of Service: 10:00 Assessment and Plan Assessment and plan (1) NSTEMI (non-ST elevated myocardial infarction): Status: Acute Assessment and plan: Type II NSTEMI possibly due to demand ischemia secondary to her underlying chronic lung disease in the setting of anemia however the fact that she sustained acute kidney liver injury along with the elevated troponin I suggest that she may have had a recent infarct. Will obtain echocardiogram tomorrow when the aquatic facility manager is available. We will obtain a resting MPI scan looking for residual ischemia or infarct. We will make sure she is on goal-directed therapy including low-dose beta-blockers aspirin and I will resume her atorvastatin now that her transaminitis is resolved. (2) Transaminitis: Status: Acute Assessment and plan: Likely d/t hepatic congestion. LFT's now improving. No ai CHF; Echo on 04/23/22 showed EF of 60%.\ Needs updated echocardiogram and setting of recent troponin elevation. . (3) Hyperkalemia: Status: Acute Assessment and plan: Now normal w/o intervention. (4) Epigastric abdominal pain: Status: Acute Assessment and plan: Intermittent nausea and epigastric pain which has resolved with Zofran. Question of whether she has peptic ulcer disease or whether her epigastric pain was an ischemic equivalent. Nevertheless our batch tank controller and surgeons will not perform EGD in the setting of a recent FL even if it is a demand ischemic event. Continue empiric treatment with Carafate and omeprazole. Monitor H&H. Will resume low-dose aspirin enteric-coated 81 mg daily along with GI protection. Patient's had no evidence of acute active bleeding (5) Anemia: Status: Chronic Assessment and plan: Anemia of chronic disease with concern of acute vs subacute blood loss. Monitor H/H: 9.9 > 9.5 > 9.7 > 10.1>9.3 H/H in AM No melena or hematochezia noted. (6) COPD (chronic obstructive pulmonary disease): Assessment and plan: Cont Duonbebs and prn albuterol and Breztri Stable now at baseline on 2L O2 per NC. (7) 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: Assessment and plan: CT w/o any significant changes and no new findings. patient has been receiving palliative chemotherapy w/ Pembrolizumab (8) Chronic respiratory failure with hypoxia and hypercapnia: Status: Acute Assessment and plan: Attempt to maintain O2 saturations with no more than 2L O2 per NC d/t propensity to retain CO2. Subjective Subjective Interval history since last seen: Patient denies abdominal pain nausea vomiting chest pain. Dyspnea is no worse than her usual. Not acutely short of breath at rest. Gets dyspneic with activity. Exam Narrative Exam Narrative: Elderly female 71 her chair not acutely short of breath wearing oxygen at 2 L/min per nasal cannula. Neck is without JVD no accessory respiratory muscle use Lungs some coarse scattered rhonchi and end expiratory wheezing Heart is regular no appreciable murmur rub or gallop Abdomen soft nontender nondistended Legs without peripheral cyanosis or edema. Objective Last Vital Signs Temp 36.6 C 05/12/22 07:20 Pulse 78 05/12/22 14:53 Resp 19 05/12/22 14:53 BP 117/63 05/12/22 07:20 Pulse Ox 96 05/12/22 14:53 Laboratory Results - last 24 hr 05/12/22 05/12/22 05/12/22 06:00 06:00 07:58 Hgb 9.8 L Hct 32.9 L Troponin I 1245 H* NT-Pro-B Natriuret Pep Add-On Test Request TNP 05/12/22 05/12/22 07:58 07:58 Hgb Hct Troponin I NT-Pro-B Natriuret Pep 1831 H Add-On Test Request DONE
[2022-05-12] MEDS: Isosorbide Mononitrate 30 MG TABCR PO (15:19)
[2022-05-12] MEDS: Aspirin E.C. 81 MG TABEC PO (15:20)
[2022-05-12] MEDS: Bisacodyl 5 MG TABEC PO (16:07)
[2022-05-12] MEDS: Docusate Sodium 100 MG/10 ML CUP PO (20:48)
[2022-05-12] MEDS: Atorvastatin 20 MG TAB PO (20:49)
[2022-05-12] MEDS: Metoprolol 12.5 MG TAB PO (22:22)
[2022-05-12] MEDS: Senna TAB 1 TAB PO (22:23)
[2022-05-13] VITALS (14 sets, daily range): BP systolic 108–144; BP diastolic 60–70; PULSE 65–78; RESP 4–22; TEMP 35.9–37.1; O2SAT 88–95
--- NOTE | 2022-05-13 | DI.NM_ITS ---
APPROVED REPORT Conclusion This is a resting myocardial perfusion study. Perfusion is normal. There is no evidence of prior in farction
--- NOTE | 2022-05-13 | DI.US_ITS ---
APPROVED REPORT EXAM: Comprehensive 2D, Doppler, and color-flow Echocardiogram Patient Location: In-Patient Room/Bed: [facility] Consultant: Vidhi Becerril RDCS (AE) Indications: NSTEMI Other Information Study Quality: Adequate Conclusion Normal left ventricular wall thickness and chamber size. Estimated ejection fraction is 60 to 65%. There are no segmental wall motion abnormalities Wall motion Left Ventricle The left ventricle is normal size. The left ventricular systolic function is normal. The left ventric ular ejection fraction is within the normal range. There is normal left ventricular wall thickness. T here is normal LV segmental wall motion. LVEF is 60%. Great Vessels IVC is normal in size and collapses >50% with inspiration. 2D Dimensions IVSD d PLAX 1.01 cm F: 0.6-1.0 LV Vol A2C d MOD 111.0 mL LVPW d PLAX 1.05 cm F: 0.6 - 1.0 LV Vol A4C d MOD 119.7 mL LVID d PLAX 4.59 cm F: 3.8 - 5.2 LA vol/ BSA A2C s A-L 45.3 mL/m2 LVDs 3.00 cm F: 2.2 - 3.5 LA vol/ BSA A4C s A-L 21.3 mL/m2 LV EF Teichholz 62.7 % LA Vol/ BSA Biplane s A-L 34.2 mL/m2 LVEF (Lawrence's) 60.04 % F: 54 - 74 LA Area A4C s MOD 14.21 cm2 LV Volume 92.98 mL F: 46 - 106 LA Area A2C s MOD 22.75 cm2 LV Volume Index 51.37 mL/m2 F: 29 - 61 LV EF A4C MOD 59.0 % LV Vol Biplane MOD 120.0 mL LV EF A2C MOD 60.8 % FS 33.80 % LV EF Biplane MOD 60.0 % SV 72.03 mL SV Index 39.62 mL/m2
[2022-05-13 06:05] LABS: Abs Immature Grans 0.04 10^3/uL (0.0-0.06); Absolute Basophil Count 0.06 10^3/uL (0.0-0.2); Absolute Eosinophil Count 0.21 10^3/uL (0.0-0.7); Absolute Lymphocyte Count 1.03 10^3/uL (1.2-3.4); Absolute Neutrophil Count 4.72 10^3/uL (1.2-6.7); Basophils % 0.9; Eosinophils % 3.1; HCT 31.7 % (36.0-46.0); HGB 9.6 g/dL (11.2-15.7); Immature Grans % 0.6; Lymphocytes % 15.2; MCH 28.6 pg (27.0-33.0); MCHC 30.3 % (32.0-36.0); MCV 94 fL (80-95); MPV 11.1 fL (8.0-11.0); Monocytes % 10.4; Neutrophils % 69.8; Platelet Count 202 10^3/uL (130-400); RBC 3.36 10^6/uL (3.93-5.22); RDW 16.2 % (11.7-14.6); RDW-SD 55.4 fL; WBC 6.76 10^3/uL (4.4-10.8)
[2022-05-13 06:27] LABS: Iron 25 ug/dL (50-170)
[2022-05-13] MEDS: Normal Saline Flush 10 ML SYR IVP ×2 (06:37→12:15)
[2022-05-13 06:39] LABS: ALT 37 U/L (14-59); AST 12 U/L (15-37); Albumin 2.9 g/dL (3.4-5.0); Alkaline Phosphatase 98 U/L (46-116); Anion Gap 1.5 mmol/L (3-11); BUN 35 mg/dL (7-18); Bilirubin, Total 0.2 mg/dL (0.2-1.0); CO2 37.5 mmol/L (21.0-32.0); CREATININE 1.1 mg/dL (0.55-1.02); Calcium 9.3 mg/dL (8.5-10.1); Calculated LDL 108 mg/dL (<100); Chloride 98 mmol/L (98-107); Cholesterol 176 mg/dL (<200); Estimated GFR 48.42 (mL/min/1.73m2); Ferritin 39 ng/mL (8-252); Glucose 121 mg/dL (74-106); HDL Cholesterol 54 mg/dL (40-60); Potassium 4.6 mmol/L (3.5-5.1); Sodium 137 mmol/L (136-145); Total Protein 5.9 g/dL (6.4-8.2); Triglyceride 71 mg/dL (<150)
[2022-05-13] MEDS: Albuterol/Ipratropium 3 ML UPD VIAL UPD ×3 (07:30→19:40)
[2022-05-13] MEDS: Nicotine 21 MG/24 HR PATCH TD (10:30)
[2022-05-13] MEDS: Docusate Sodium 100 MG/10 ML CUP PO ×2 (10:30→14:24)
[2022-05-13] MEDS: DULoxetine 30 MG CAP 60 MG PO (10:31)
[2022-05-13] MEDS: Isosorbide Mononitrate 30 MG TABCR PO (10:31)
[2022-05-13] MEDS: Polyethylene Glycol 3350 17 GM PACKET PO ×2 (10:31→19:40)
[2022-05-13] MEDS: Torsemide 20 MG TAB 40 MG PO (10:31)
[2022-05-13] MEDS: predniSONE 5 MG TAB 2.5 MG PO (10:31)
[2022-05-13] MEDS: Omeprazole 20 MG CAPCR 40 MG PO ×2 (10:32→19:40)
[2022-05-13] MEDS: Spironolactone 25 MG TAB PO (10:32)
[2022-05-13] MEDS: Sucralfate 1 GM TAB PO ×2 (10:32→17:00)
[2022-05-13] MEDS: Aspirin E.C. 81 MG TABEC PO (10:32)
[2022-05-13] MEDS: guaiFENesin 600 MG TABCR 1200 MG PO ×2 (10:40→19:40)
[2022-05-13] MEDS: IRON SUCROSE COMPLEX 300 MG in Normal Saline 250 ML 167 MG IVPB (12:15)
[2022-05-13] MEDS: Metoprolol 12.5 MG TAB PO ×2 (14:24→21:21)
--- NOTE | 2022-05-13 14:59 | PGE_ITS ---
Date of Service Date of service: 05/13/22 Time of Service: 14:59 Assessment and Plan Assessment and plan (1) NSTEMI (non-ST elevated myocardial infarction): Status: Acute Assessment and plan: probable type 2 demand ischemia. Echo showed normal LV function and size, no RWMA and LVEF 60 to 65%. Resting MPI showed no areas of infarct and normal perfusion. Stress images not done d/t recent elevation of troponin I. I will plan for discharge tomorrow w/ follow up stress MPI in couple of weeks. She needs P.T. consult to evaluate her ambulatory capacity and RT to check exercise O2 requirements. We will get this done in the a.m. (2) Transaminitis: Status: Resolved Assessment and plan: Likely d/t hepatic congestion. transaminases now normal. Likely d/t hepatic congestion. No obvious hepatic lesions on non contrast CT imaging . (3) Hyperkalemia: Status: Acute Assessment and plan: Now normal w/o intervention. I have not restarted her losartan. BP remains good @ 126/60. (4) Epigastric abdominal pain: Status: Acute Assessment and plan: Intermittent nausea and epigastric pain which has resolved with Zofran. Question of whether she has peptic ulcer disease or whether her epigastric pain was an ischemic equivalent. Nevertheless our bottom precipitator operator and surgeons will not perform EGD in the setting of a recent GA even if it is a demand ischemic event. Continue empiric treatment with Carafate and omeprazole. Monitor H&H. I have decided to hold her ASA until she gets follow stress MPI study and subsequent GI workup. (5) Anemia: Status: Chronic Assessment and plan: Anemia of chronic disease with concern of acute vs subacute blood loss. Monitor H/H: 9.9 > 9.5 > 9.7 > 10.1>9.3 H/H in AM No melena or hematochezia noted. (6) COPD (chronic obstructive pulmonary disease): Assessment and plan: Cont Duonbebs and prn albuterol and Breztri Stable now at baseline on 2L O2 per NC. (7) 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: Assessment and plan: CT w/o any significant changes and no new findings. patient has been receiving palliative chemotherapy w/ Pembrolizumab (8) Chronic respiratory failure with hypoxia and hypercapnia: Status: Acute Assessment and plan: Attempt to maintain O2 saturations with no more than 2L O2 per NC d/t propensity to retain CO2. (9) Discharge planning issues: Status: Acute Assessment and plan: patient will return home tomorrow after P.T. evaluation. P.T. will determine her needs for home P.T. and/or O.T. 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 Patient went for echo and MPI study this morning. Exam Narrative Exam Narrative: Patient is alert/oriented x 3 Lungs: a few end expiratory wheezes; no rhonchi or rales Heart: regular rate/rhythm, soft systolic murmur over apex; no thrilll or gallop Abdomen: soft, nontender, normal bowel sounds. Objective Last Vital Signs Temp 36.5 C 05/13/22 12:04 Pulse 77 05/13/22 14:22 Resp 16 05/13/22 12:04 BP 124/68 05/13/22 14:22 Pulse Ox 88 L 05/13/22 13:58 Laboratory Results - last 24 hr 05/13/22 05/13/22 05/13/22 05:45 05:45 05:45 WBC 6.76 RBC 3.36 L Hgb 9.6 L Hct 31.7 L MCV 94 MCH 28.6 MCHC 30.3 L RDW 16.2 H Plt Count 202 MPV 11.1 H Immature Gran % 0.6 Neutrophils % 69.8 Lymphocytes % 15.2 Monocytes % 10.4 Eosinophils % 3.1 Basophils % 0.9 Nucleated RBC % 0.0 Absolute Neutrophils 4.72 Absolute Lymphocytes 1.03 L Absolute Monocytes 0.70 Absolute Eosinophils 0.21 Absolute Basophils 0.06 Sodium 137 Potassium 4.6 Chloride 98 Carbon Dioxide 37.5 H Anion Gap 1.5 L BUN 35 H Creatinine 1.1 H Estimated GFR/1.73 m2 48.42 Glucose 121 H Calcium 9.3 Iron 25 L Ferritin 39 Total Bilirubin 0.2 AST 12 L ALT 37 Alkaline Phosphatase 98 Total Protein 5.9 L Albumin 2.9 L Triglycerides 71 Total Cholesterol 176 LDL Cholesterol, Calc 108 H HDL Cholesterol 54
--- NOTE | 2022-05-13 16:03 | PT.INIE ---
Date of service: 05/13/22 Time of Service: 16:38 PT Notes Visit Reasons: Non-ST Elevation WI. Physical Therapy Inpatient Initial Evaluation Date: 05/13/2022 Referring Doctor:? Daniel Leon MD PT Orders: PT CONSULT:? Safety Consult for D/C Precautions: Fall. Standard. Activity as tolerated. On chronic O2 supp at 2L/min via NC. Patient Profile/Admitting Diagnosis:? Patient is a 76 year-old female on palliative care with past medical history significant for? primary adenocarcinoma of the left lower lobe of lung who presented to the ED on due to weakness and abdominal pain.? Patient is diagnosed with NSTEMI with EF of 60 to 65%, hyperkalemia, epigastric abdominal pain, anemia, COPD, and chronic respiratory failure with hypoxia and hypercapnia. PMHX: All Active Problems Chronic respiratory failure with hypoxia and hypercapnia (Acute) Anemia (Chronic) NSTEMI (non-ST elevated myocardial infarction) (Acute) Elevated troponin (Acute) Transaminitis (Acute) Acute kidney injury (Acute) Hyperkalemia (Acute) Epigastric abdominal pain (Acute) Stool guaiac positive (Acute) UTI (urinary tract infection) (Acute) Generalized weakness (Acute) Pain of right arm (Acute) Swelling of right hand (Acute) All medications reviewed (Acute) Productive cough (Acute) Dyspnea and respiratory abnormalities (Acute) of (Acute) Lives alone with help available (Acute) (Chronic) Novemberbuse of elderly (Chronic) has restraining order against stepsonGoals of care, counseling/discussion (Acute) Recurrent adenocarcinoma of lung (Acute) Pedal edema (Acute) Callus of foot (Acute) Diastolic dysfunction (Acute) Dyspnea (Acute) Dysuria (Acute) Malaise (Acute) Polypharmacy (Acute) Constipation (Acute) Financial problems (Acute) Smoking (Acute) Medical History Anxiety Breast cancer Chronic pain COPD (chronic obstructive pulmonary disease) Depression Do not resuscitate GERD (gastroesophageal reflux disease) Hyperlipidemia Hypertension Migraine Mild cognitive impairment Nausea and vomiting Non-small cell cancer of right lung Oxygen dependent Palliative care patient 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 Stress at home Surgical History? S/P mastectomy, bilateral Social History/Home Situation: Lives alone on the second floor of an apartment building with a ramp to enter.? She rides the elevator to access her apartment.? Uses 4WW at baseline.? Has a lady who comes in for 2 hours each week for laundry and grocery shopping.? Uses [facility] for all MD appointments. Three daughters are a good support. Gets meals on wheels. Equipment Owned/DME: 4WW Subjective: Feels better with no report of abdominal pain throughout session. Agreeable to PT coming in to continue working on her activity tolerance to regain her prior level of function. She states that she does not usually get out of breath walking the distance from her bed to her kitchen with oxygen supp on. Today, walking the same distance made her fatigued and needed for her to sit down with oxygen saturation lowest at 81% on 2L. Objective: General Observation: Telemetry monitoring in place.? Mental Status: Alert and oriented as to person, place, time, and purpose. Able to pay attention, focus, and respond appropriately. Pain: None reported Vital Signs: Oxygen saturation 81 to 90% on 2 L of oxygen/min during ambulation activity ROM: Right Upper Extremity: ? Shoulder Flexion WFL. Shoulder abduction WFL. Elbow flexion WFL. Wrist flexion WFL. Functional opening and closing of hand WFL. Left Upper Extremity:? Shoulder Flexion WFL. Shoulder abduction WFL. Elbow flexion WFL. Wrist flexion WFL. Functional opening and closing of hand WFL. Right Lower Extremity: Hip flexion WFL. Hip abduction WFL. Knee flexion WFL. Ankle dorsiflexion to neutral only. Ankle plantarflexion WFL. Left Lower Extremity: Hip flexion WFL. Hip abduction WFL. Knee flexion WFL. Ankle dorsiflexion to neutral only. Ankle plantarflexion WFL. Strength: Right Upper Extremity: Shoulder flexors 4-/5. Shoulder abductors 4-/5. Elbow flexors 4-/5. Elbow extensors 4-/5. Wearing Apparel Presser strong. Left Upper Extremity: Shoulder flexors 4-/5. Shoulder abductors 4-/5. Elbow flexors 4-/5. Elbow extensors 4-/5. Wearing Apparel Presser strong. Right Lower Extremity: Hip flexors 3+/5. Hip abductors 3+/5. Knee flexors 3+/5. Knee extensors 3+/5. Ankle dorsiflexors 3-/5. Ankle plantarflexors 4-/5. Left Lower Extremity: Hip flexors 3+/5. Hip abductors 3+/5. Knee flexors 3+/5. Knee extensors 3+/5. Ankle dorsiflexors 3-/5. Ankle plantarflexors 4-/5. Bed Mobility/Transfers: Sit to stand with stand by assist Stand to sit with stand by assist Bed to reclining stand by assist Gait: Instructed patient with level surface ambulation of 75 feet requiring stand by assist using 4WW with wheelchair follow. Robina decreased. Step height decreased. Step length decreased.? One seated rest necessary as patient became moderately short of breath and desaturated to 81%, took a littel over 1 minute to receover back up to 90% on 2L. Balance: Static Sitting: Normal Dynamic Sitting: Normal Static Standing: Fair Dynamic Standing: Fair 4-stage Balance Test:? Only able to maintain feet together for 10 seconds,? unable to do all three positions which signifiy increased fall risk. Special Tests: Mobility Limitations Standardized Measure [facility] 6 clicks Basic Mobility Inpatient Short Form: Raw Score: 18? CMS Score: 47% deficit? ? ? Informed Consent/Education:? Patient was instructed in purpose of PT consult and plan of care. Agreeable to proceed with established PT POC to achieve personal goals. Assessment: Activity tolerance still diminished, mobility level still not up to par with her previous level.?Agreeable to having HH PT for more strengthening.? Has had about 10 falls in the past year. Patient presents with clinical signs and symptoms consistent with current/admitting diagnoses that have resulted to mobility limitations, gait instability, generalized weakness, and overall ADL decline as demonstrated by the following impairment level findings: 1.? Decreased strength to B UE/LE major muscle groups 2.? Impaired sitting/standing balance 3.? Impaired activity tolerance 4.? Shortness of breath Impairments are contributing to the following functional limitations: 1.? Decline in bed mobility skills 2.? Decline in transfer skills 3.? Difficulty with ambulation without assistive device and physical assistance 4.? Increased completion time for mobility ADL performance 5.? Increased risk for falls 6.? Difficulty with managing steps alone safely Patient is assessed as a 39976 moderate complexity based on the following: History: 76-year-old female with past medical history as indicated above Examination: Demonstrable impairment in strength, balance, and mobility level with underlying impairments and functional limitations as exhibited above as well as deficit score of 47% utilizing the [facility] Mobility Inpatient Short Form Presentation: Evolving Decision Makin moderate complexity Goals: Goals X1 week 1. Supine-Sit independent 2. Sit-Supine independent 3. Sit-Stand independent 4. Stand-Sit independent with 4WW 5. Bed-Chair independent with 4WW 6. Chair-Bed independent with 4WW 7. Independent gait on level surface with use of 4WW for at least 100 feet without report of pain nor dyspnea 8. Good static and dynamic standing balance/tolerance Plan of Care/Treatment Plan: 1-2x/day, 7 days/week x 1 week. Plan of care has been reviewed with the STOCK TURNER providing the service under Physical Therapy direction. Initiate Physical Therapy intervention for pain management as needed, strengthening, bed mobility, transfers, gait, stairs, balance training, and use of assistive device. DISCHARGE RECOMMENDATIONS: ?? Home with no services [] [X] ? Home with services.? Home when medically cleared by hospitalist. ? patient will benefit from home health PT services in order to progress mobility level using least restrictive assistive ambulatory device, assess home safety, identify additional equipment needs, and establish a functional maintenance program that will increase ability of patient to remain at home. [] ? Home with outpatient PT [] [] ? SNF for continued rehabilitation [] [] ? Retirement Care [] [] ? SNF versus LTC based on ability to participate and progress [] TREATMENT CODE/TIME: 11809 x 20 minutes, 22723 x 11 minutes beginning at 16:03 PM. Thank you for the opportunity to participate in the care of this patient. Talia Moya PT, DPT, CLT [facility] [employer], [place]
--- NOTE | 2022-05-13 16:45 | CHAPLAIN ---
I had a brief visit with Madelin today. She is looking forward to being discharged home tomorrow.
--- NOTE | 2022-05-13 17:30 | INDS_ITS ---
Date of service: 05/13/22 PT Notes Visit Reasons: elevated troponin, anemia, epigastric Physical Therapy Inpatient Discharge Summary Date: 05/13/2022 Dates of Service: 05/13/2022 only This is a clinical summary of care provided for the duration of dates listed above. No charge was made in the completion of this documentation. Referring Doctor:? Daniel Leon MD PT Orders: PT CONSULT:? Safety Consult for D/C Precautions: Fall. Standard. Activity as tolerated.? On chronic O2 supp at 2L/min via NC. Patient Profile/Admitting Diagnosis:? Patient is a 76 year-old female on palliative care with past medical history significant for? primary adenocarcinoma of the left lower lobe of lung who presented to the ED on due to weakness and abdominal pain.? Patient is diagnosed with NSTEMI with EF of 60 to 65%, hyperkalemia, epigastric abdominal pain, anemia, COPD, and chronic respiratory failure with hypoxia and hypercapnia. PMHX: All Active Problems Chronic respiratory failure with hypoxia and hypercapnia (Acute) Anemia (Chronic) NSTEMI (non-ST elevated myocardial infarction) (Acute) Elevated troponin (Acute) Transaminitis (Acute) Acute kidney injury (Acute) Hyperkalemia (Acute) Epigastric abdominal pain (Acute) Stool guaiac positive (Acute) UTI (urinary tract infection) (Acute) Generalized weakness (Acute) Pain of right arm (Acute) Swelling of right hand (Acute) All medications reviewed (Acute) Productive cough (Acute) Dyspnea and respiratory abnormalities (Acute) of (Acute) Lives alone with help available (Acute) (Chronic) Novemberbuse of elderly (Chronic) has restraining order against stepsonGoals of care, counseling/discussion (Acute) Recurrent adenocarcinoma of lung (Acute) Pedal edema (Acute) Callus of foot (Acute) Diastolic dysfunction (Acute) Dyspnea (Acute) Dysuria (Acute) Malaise (Acute) Polypharmacy (Acute) Constipation (Acute) Financial problems (Acute) Smoking (Acute) Medical History Anxiety Breast cancer Chronic pain COPD (chronic obstructive pulmonary disease) Depression Do not resuscitate GERD (gastroesophageal reflux disease) Hyperlipidemia Hypertension Migraine Mild cognitive impairment Nausea and vomiting Non-small cell cancer of right lung Oxygen dependent Palliative care patient 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 Stress at home Surgical History? S/P mastectomy, bilateral Social History/Home Situation: Lives alone on the second floor of an apartment building with a ramp to enter.? She rides the elevator to access her apartment.? Uses 4WW at baseline.? Has a lady who comes in for 2 hours each week for laundry and grocery shopping.? Uses [facility] for all MD appointments.? Three daughters are a good support.? Gets meals on wheels. Equipment Owned/DME: 4WW Subjective: NT. See most recent ASSEMBLER MOTOR VEHICLE notes. Objective: General Observation:? NT. See most recent ASSEMBLER MOTOR VEHICLE notes. Mental Status: NT. See most recent ASSEMBLER MOTOR VEHICLE notes. Pain: NT. See most recent ASSEMBLER MOTOR VEHICLE notes. Vital Signs: NT. See most recent ASSEMBLER MOTOR VEHICLE notes. ROM: Right Upper Extremity: ? Shoulder Flexion WFL. Shoulder abduction WFL. Elbow flexion WFL. Wrist flexion WFL. Functional opening and closing of hand WFL. Left Upper Extremity:? Shoulder Flexion WFL. Shoulder abduction WFL. Elbow flexion WFL. Wrist flexion WFL. Functional opening and closing of hand WFL. Right Lower Extremity: Hip flexion WFL. Hip abduction WFL. Knee flexion WFL. Ankle dorsiflexion to neutral only. Ankle plantarflexion WFL. Left Lower Extremity: Hip flexion WFL. Hip abduction WFL. Knee flexion WFL. Ankle dorsiflexion to neutral only. Ankle plantarflexion WFL. Strength: Right Upper Extremity: Shoulder flexors 4-/5. Shoulder abductors 4-/5. Elbow flexors 4-/5. Elbow extensors 4-/5. Chemical Processing Equipment Repairer strong. Left Upper Extremity: Shoulder flexors 4-/5. Shoulder abductors 4-/5. Elbow flexors 4-/5. Elbow extensors 4-/5. Chemical Processing Equipment Repairer strong. Right Lower Extremity: Hip flexors 3+/5. Hip abductors 3+/5. Knee flexors 3+/5. Knee extensors 3+/5. Ankle dorsiflexors 3-/5. Ankle plantarflexors 4-/5. Left Lower Extremity: Hip flexors 3+/5. Hip abductors 3+/5. Knee flexors 3+/5. Knee extensors 3+/5. Ankle dorsiflexors 3-/5. Ankle plantarflexors 4-/5. Bed Mobility/Transfers: Sit to stand with stand by assist Stand to sit with stand by assist Bed to reclining stand by assist Gait: Instructed patient with level surface ambulation of 75 feet requiring stand by assist using 4WW with wheelchair follow. Robina decreased. Step height decreased. Step length decreased.? One seated rest necessary as patient became moderately short of breath and desaturated to 81%,? took a littel over 1 minute? to receover back up to 90% on 2L. Balance: Static Sitting: Normal Dynamic Sitting: Normal Static Standing: Fair Dynamic Standing: Fair 4-stage Balance Test:? Only able to maintain feet together for 10 seconds,? unable to do all three positions which signifiy increased fall risk. Special Tests: Mobility Limitations Standardized Measure [facility] 6 clicks Basic Mobility Inpatient Short Form: Raw Score: 18? CMS Score: 47% deficit? ? ? Assessment: Activity tolerance still diminished, mobility level still not up to par with her previous level.?Agreeable to having PT for more strengthening.? Has had about 10 falls in the past year. ? Patient presents with clinical signs and symptoms consistent with current/admitting diagnoses that have resulted to mobility limitations, gait instability, generalized weakness, and overall ADL decline as demonstrated by the following impairment level findings: 1.? Decreased strength to B UE/LE major muscle groups 2.? Impaired sitting/standing balance 3.? Impaired activity tolerance 4.? Shortness of breath Impairments are contributing to the following functional limitations: 1.? Decline in bed mobility skills 2.? Decline in transfer skills 3.? Difficulty with ambulation without assistive device and physical assistance 4.? Increased completion time for mobility ADL performance 5.? Increased risk for falls 6.? Difficulty with managing steps alone safely Goals: Goals X1 week 1. Supine-Sit independent NOT MET 2. Sit-Supine independent NOT MET 3. Sit-Stand independent NOT MET 4. Stand-Sit independent with 4WW NOT MET 5. Bed-Chair independent with 4WW NOT MET 6. Chair-Bed independent with 4WW NOT MET 7. Independent gait on level surface with use of 4WW for at least 100 feet without report of pain nor dyspnea NOT MET 8. Good static and dynamic standing balance/tolerance NOT MET DISCHARGE RECOMMENDATIONS: ?? Home with no services [] [X] ? Home with services.? Home when medically cleared by hospitalist. ? patient will benefit from home health PT services in order to progress mobility level u sing least restrictive assistive ambulatory device, assess home safety, identify additional equipment needs, and establish a functional maintenance program that will increase ability of patient to remain at home. [] ? Home with outpatient PT [] [] ? SNF for continued rehabilitation [] [] ? [facility] [] [] ? SNF versus LTC based on ability to participate and progress [] TREATMENT CODE/TIME: NC Thank you for the opportunity to participate in the care of this patient. Talia Moya PT, DPT, CLT [facility] [place], [place]
[2022-05-13] MEDS: Ondansetron O.D.T. 4 MG TABEF PO (19:41)
[2022-05-13] MEDS: Atorvastatin 40 MG TAB PO (19:41)
[2022-05-13] MEDS: Acetaminophen 325 MG TAB PO (21:20)
[2022-05-13] MEDS: Senna TAB 1 TAB PO (21:21)
[2022-05-14] VITALS (7 sets, daily range): BP systolic 107–113; BP diastolic 60–61; PULSE 61–81; RESP 8–19; TEMP 36.5–36.9; O2SAT 93
[2022-05-14] MEDS: Metoprolol 12.5 MG TAB PO ×2 (06:20→13:37)
[2022-05-14] MEDS: Polyethylene Glycol 3350 17 GM PACKET PO (07:50)
[2022-05-14] MEDS: Torsemide 20 MG TAB 40 MG PO (07:50)
[2022-05-14] MEDS: Spironolactone 25 MG TAB PO (07:50)
[2022-05-14] MEDS: Isosorbide Mononitrate 30 MG TABCR PO (07:51)
[2022-05-14] MEDS: Docusate Sodium 100 MG/10 ML CUP PO (07:51)
[2022-05-14] MEDS: Omeprazole 20 MG CAPCR 40 MG PO (07:51)
[2022-05-14] MEDS: predniSONE 5 MG TAB 2.5 MG PO (07:51)
[2022-05-14] MEDS: DULoxetine 30 MG CAP 60 MG PO (07:51)
[2022-05-14] MEDS: Normal Saline Flush 10 ML SYR IVP ×2 (07:52→11:19)
[2022-05-14] MEDS: Sucralfate 1 GM TAB PO (07:52)
[2022-05-14] MEDS: Nicotine 21 MG/24 HR PATCH TD (07:52)
[2022-05-14] MEDS: guaiFENesin 600 MG TABCR 1200 MG PO (07:52)
[2022-05-14] MEDS: Albuterol/Ipratropium 3 ML UPD VIAL UPD (08:15)
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
--- NOTE | 2022-05-14 10:26 | PDOC.HHF2F ---
Home Health Certification Home Health Certification: 1. Encounter Date and Reason I certify that Carly Arguelles was seen by Daniel Leon on 05/14/22 and that I had a [id number] encounter with this patient that meets the physician face to face encounter requirements. 2. Clinical Findings Supporting Skilled Need and Homebound Status I certify that home health services are medically necessary, include either intermittent jail and/or physical/speech therapy, and that this patient is homebound in that absences from the home require considerable and taxing effort and are infrequent or of short duration, or are attributable to the need to receive medical care. [X] (a) Attached documentation from encounter provides clinical findings supporting skilled need and homebound status (including what assistance patient requires to leave the home). The encounter with the patient was in whole, or in part, for the following medical condition, which is the primary reason for home health care: anemia, COPD, lung cancer, transient troponin I elevation w/out [place] Nursing Home: Nursing to evaluate and treat for COPD, lung cancer, anemia, coordinate medication changes with PCP and cancer specialist. Coordinate any follow-up labs including repeat CBC next week. Physical Therapy: Physical therapy and Occupational Therapy to provide home services to evaluate and treat for generalized weakness and deconditioning due to her underlying chronic pulmonary problems including lung cancer and COPD as well as her recent hospitalization for iron deficiency anemia and elevated troponin levels. Note patient has had no symptoms of chest pain with activity nor with her PT evaluation at [facility]. See [facility] physical therapist recommendations. Speech Therapy: Homebound: Patient is homebound due to her significant exertional dyspnea and hypoxemia with any prolonged activity outside her home. This makes travel outside her home to seek medical services and increased risk to her health. 3. Certification and Authentication I certify that I composed the above information based on my clinical judgement relating to this patient's medical condition and, if applicable, clinical findings communicated to me by the NPP or inpatient physician who performed the Home Health Referral. All further orders will be obtained through __Arianna Nunez (Community Based Physician - PCP)
[2022-05-14] MEDS: IRON SUCROSE COMPLEX 400 MG in Normal Saline 250 ML 100 MG IVPB (11:19)
--- NOTE | 2022-05-14 12:40 | PDOC.CMDIS ---
- If Service Date Differs Date of service: 05/14/22 Time of Service: 12:40 LACE Index Scoring Tool - Questions: Length of Stay (in days): 4 - 6 Acuity (Admit via E.D.?): Yes Comorbidities: Previous M.I., Chronic Pulmonary Disease, Any Tumor E.D. Visits: 4 - Answers: Total Score: 16 Risk of Readmission: High Risk Care Management Discharge Reason for Hospitalization: Non-ST Elevation [place] Discharge Plan: Madelin will be discharged home with a resumption of home health services for nursing and OT with the addition of PT. She will follow up with her community providers and plan of care and transport with family. Patient/Family Education Needs: Review discharge instructions, medications, limitatiobns, activity, follow up plan and discuss Ask Me Threediscuss Ask Me Three Services Needed at Discharge: Home Health Care Services
--- NOTE | 2022-05-14 13:31 | PT.INTREAT ---
PT Notes Visit Reasons: elevated troponin, anemia, epigastric Inpatient Physical Therapy Treatment Note [facility] Date: 05/14/22 SUBJECTIVE: Madelin states that she is pleased with increase of strength and endurance. Reports that she is going home later today. OBJECTIVE: [] BED MOBILITY/TRANSFERS Sit-stand: SBA Stand-sit:SBA GAIT Assistive Device:FWW Weight bearing: AT Assist: CGA Distance: 250' Deviation: 2L of O2. wc to follow and required 2 sitting rest breaks x approx 30 sec each. THEREX: performed a global LE strengthening routine while seated in chair. AP, LAQ, marching, and hip abd x 10 each during am session. PM session, pt receiving iron prior to d/c home. ASSESSMENT: tolerated AM session well. Minimal c/o SOB during ambulation, which improved with sit rest break. No LOB noted. Madelin declined participation in PT in PM as she was receiving iron via IV prior to d/c. PLAN: pt d/c later this pm to home. TREATMENT CODE/TIME: 25 min in am, [id number], [id number]
[2022-05-14] MEDS: Heparin 500 UNITS/5 ML SYRINGE IVP (13:37)
== END 2022-05-14 14:49 | disposition home health service (06) | DRG 281 ==
LOC: ER 18:16 → MS 19:28
PROVIDERS: Internal Medicine; Admitting Provider Family Medicine; Emergency Provider Physician Assistant; PCP Family Medicine; Visit Provider Family Medicine
DX: I21.A1 Myocardial infarction type 2 (principal); C34.32 Malignant neoplasm of lower lobe, left bronchus or lung; J96.11 Chronic respiratory failure with hypoxia; J96.12 Chronic respiratory failure with hypercapnia; K92.1 Melena; N17.9 Acute kidney failure, unspecified; I21.4 Non-ST elevation (NSTEMI) myocardial infarction; R74.01 Elevation of levels of liver transaminase levels; E87.5 Hyperkalemia; J44.9 Chronic obstructive pulmonary disease, unspecified; Z99.81 Dependence on supplemental oxygen; R53.1 Weakness; K59.00 Constipation, unspecified; R30.0 Dysuria; F17.210 Nicotine dependence, cigarettes, uncomplicated; Z91.419 Personal history of unspecified adult abuse; Z66 Do not resuscitate; F41.9 Anxiety disorder, unspecified; G89.29 Other chronic pain; E78.5 Hyperlipidemia, unspecified; I10 Essential (primary) hypertension; G31.84 Mild cognitive impairment of uncertain or unknown etiology; Z85.3 Personal history of malignant neoplasm of breast; Z95.828 Presence of other vascular implants and grafts; R10.13 Epigastric pain; D63.8 Anemia in other chronic diseases classified elsewhere; I35.0 Nonrheumatic aortic (valve) stenosis
CPT/HCPCS: 71250; 80053; 80061; 82550; 82805; 83690; 87635; 93005; 93016; 93018; 93306; 94640; 96360; 96361; 97110; 97162; 97530; 99285; 74176; 78451; 81003; 82728; 83540; 83735; 83880; 84484; 85014; 85018; 85025; 93010; 99220; 99225; 99231; 99232; 99239; G0378; J1650; J1756; J3490; J7512; J7620

== ENCOUNTER 2022-05-19 03:21 | Outpatient (RCR) | payer MEDICARE, MEDICAID, SELFPAY ==
[2022-04-28] MEDS: Normal Saline Flush 10 ML SYR IVP (12:11)
[2022-04-28 12:25] LABS: Abs Immature Grans 0.03 10^3/uL (0.0-0.06); Absolute Basophil Count 0.05 10^3/uL (0.0-0.2); Absolute Eosinophil Count 0.16 10^3/uL (0.0-0.7); Absolute Monocyte Count 0.75 10^3/uL (0.1-0.8); Basophils % 0.5; Eosinophils % 1.5; HCT 36.2 % (36.0-46.0); HGB 10.9 g/dL (11.2-15.7); Immature Grans % 0.3; Lymphocytes % 7.6; MCH 27.8 pg (27.0-33.0); MCHC 30.1 % (32.0-36.0); MCV 92 fL (80-95); MPV 11.4 fL (8.0-11.0); Monocytes % 6.8; Neutrophils % 83.3; Platelet Count 272 10^3/uL (130-400); RBC 3.92 10^6/uL (3.93-5.22); RDW 15.8 % (11.7-14.6); RDW-SD 53.7 fL; WBC 10.99 10^3/uL (4.4-10.8)
[2022-04-28 12:26] LABS: Absolute Lymphocyte Count 0.84 10^3/uL (1.2-3.4); Absolute Neutrophil Count 9.15 10^3/uL (1.2-6.7)
[2022-04-28 12:55] LABS: ALT 23 U/L (14-59); AST 14 U/L (15-37); Albumin 3.6 g/dL (3.4-5.0); Alkaline Phosphatase 100 U/L (46-116); BUN 47 mg/dL (7-18); Bilirubin, Total 0.5 mg/dL (0.2-1.0); CREATININE 1.3 mg/dL (0.55-1.02); Calcium 9.1 mg/dL (8.5-10.1); Chloride 92 mmol/L (98-107); Estimated GFR 39.93 (mL/min/1.73m2); Glucose 158 mg/dL (74-106); Magnesium 2.6 mg/dL (1.8-2.4); Potassium 4.9 mmol/L (3.5-5.1); Sodium 131 mmol/L (136-145); TSH 1.67 uIU/mL (0.36-3.74); Total Protein 6.4 g/dL (6.4-8.2)
[2022-05-19] MEDS: Normal Saline Flush 10 ML SYR IVP (13:29)
[2022-05-19 13:32] LABS: Abs Immature Grans 0.04 10^3/uL (0.0-0.06); Absolute Basophil Count 0.08 10^3/uL (0.0-0.2); Absolute Eosinophil Count 0.15 10^3/uL (0.0-0.7); Absolute Lymphocyte Count 0.89 10^3/uL (1.2-3.4); Absolute Monocyte Count 0.67 10^3/uL (0.1-0.8); HCT 35.6 % (36.0-46.0); HGB 10.7 g/dL (11.2-15.7); Immature Grans % 0.5; Lymphocytes % 11.7; MCH 28.2 pg (27.0-33.0); MCHC 30.1 % (32.0-36.0); MCV 94 fL (80-95); MPV 11.1 fL (8.0-11.0); Monocytes % 8.8; Nucleated RBC 0.3 % (0.0-0.3); Platelet Count 300 10^3/uL (130-400); RBC 3.79 10^6/uL (3.93-5.22); RDW 16.3 % (11.7-14.6); RDW-SD 56.4 fL; WBC 7.63 10^3/uL (4.4-10.8)
[2022-05-19 13:55] LABS: ALT 25 U/L (14-59); AST 19 U/L (15-37); Albumin 3.7 g/dL (3.4-5.0); Alkaline Phosphatase 113 U/L (46-116); Anion Gap 6.8 mmol/L (3-11); BUN 55 mg/dL (7-18); Bilirubin, Total 0.3 mg/dL (0.2-1.0); CO2 32.2 mmol/L (21.0-32.0); CREATININE 1.4 mg/dL (0.55-1.02); Calcium 9.1 mg/dL (8.5-10.1); Chloride 94 mmol/L (98-107); Estimated GFR 36.66 (mL/min/1.73m2); Glucose 125 mg/dL (74-106); Magnesium 2.6 mg/dL (1.8-2.4); Potassium 5.1 mmol/L (3.5-5.1); Sodium 133 mmol/L (136-145); TSH 4.93 uIU/mL (0.36-3.74); Total Protein 6.6 g/dL (6.4-8.2)
== END 2022-05-28 23:59 | disposition home or self-care (01) ==
LOC: INF 03:21
PROVIDERS: Internal Medicine Medical Oncology; PCP Family Medicine; Visit Provider Nurse Practitioner Adult Health
DX: C34.32 Malignant neoplasm of lower lobe, left bronchus or lung (principal); Z79.899 Other long term (current) drug therapy; Z45.2 Encounter for adjustment and management of vascular access device
CPT/HCPCS: 36591; 80053; 83735; 84439; 84443; 85025

== ENCOUNTER 2022-05-19 14:42 | Emergency (ER) | payer MEDICARE, MEDICAID, SELFPAY ==
[2022-05-19] VITALS (20 sets, daily range): BP systolic 93–116; BP diastolic 45–53; PULSE 50–63; RESP 8–15; TEMP 36.5; O2SAT 90–99
--- NOTE | 2022-05-19 15:00 | DI.RAD_ITS ---
Exam(s) XR CHEST 2V PA LATERAL EXAM: XR CHEST 2V PA LATERAL CLINICAL HISTORY: hypoxia TECHNIQUE: 2D digital imaging was performed of the chest. Two images were obtained. PA and lateral views were obtained. COMPARISON: CR XR CHEST 2V PA LATERAL from 04/10/2022 CT,NM NM MPI REST OR STRESS ONLY from 05/13/2022 FINDINGS: MEDIASTINUM: Normal. HEART: Normal. PULMONARY VASCULATURE: Normal. There is tortuosity of the thoracic aorta. LUNGS: No focal consolidating infiltrates. Stable scarring is seen in the lungs, right greater than left. PLEURAL SPACE: No pneumothorax. There is a stable right pleural effusion/loculated fluid collection. This was seen on the CT scan from 05/08/2022. BONE:Within normal limits for the patient's age. OTHER FINDINGS:The tip of the left subclavian catheter is in good position in the superior vena cava. IMPRESSION: No acute pulmonary findings. DATA REPOSITORY: RADIATION DOSE DELIVERED:
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
[2022-05-19 15:49] LABS: Abs Immature Grans 0.02 10^3/uL (0.0-0.06); Absolute Basophil Count 0.07 10^3/uL (0.0-0.2); Absolute Lymphocyte Count 0.75 10^3/uL (1.2-3.4); Absolute Monocyte Count 0.65 10^3/uL (0.1-0.8); Absolute Neutrophil Count 4.97 10^3/uL (1.2-6.7); Basophils % 1.1; Eosinophils % 1.5; HCT 33.3 % (36.0-46.0); HGB 9.8 g/dL (11.2-15.7); Immature Grans % 0.3; Lymphocytes % 11.4; MCH 27.7 pg (27.0-33.0); MCHC 29.4 % (32.0-36.0); MCV 94 fL (80-95); MPV 10.6 fL (8.0-11.0); Monocytes % 9.9; Neutrophils % 75.8; Nucleated RBC 0.3 % (0.0-0.3); Platelet Count 246 10^3/uL (130-400); RBC 3.54 10^6/uL (3.93-5.22); RDW 16.2 % (11.7-14.6); RDW-SD 55.9 fL; WBC 6.56 10^3/uL (4.4-10.8)
[2022-05-19 16:03] LABS: ALT 25 U/L (14-59); AST 19 U/L (15-37); Albumin 3.5 g/dL (3.4-5.0); Alkaline Phosphatase 108 U/L (46-116); BUN 56 mg/dL (7-18); Bilirubin, Total 0.3 mg/dL (0.2-1.0); CREATININE 1.4 mg/dL (0.55-1.02); Calcium 9.2 mg/dL (8.5-10.1); Chloride 97 mmol/L (98-107); Estimated GFR 36.66 (mL/min/1.73m2); Glucose 114 mg/dL (74-106); Potassium 5.4 mmol/L (3.5-5.1); Sodium 134 mmol/L (136-145); Total Protein 6.2 g/dL (6.4-8.2)
[2022-05-19] MEDS: Heparin 500 UNITS/5 ML SYRINGE IV (17:02)
[2022-05-19] MEDS: Normal Saline Flush 10 ML SYR IVP (17:08)
== END 2022-05-19 17:35 | disposition home or self-care (01) ==
PROVIDERS: Emergency Provider Emergency Medicine; PCP Family Medicine
DX: J44.9 Chronic obstructive pulmonary disease, unspecified (principal); I10 Essential (primary) hypertension; F17.210 Nicotine dependence, cigarettes, uncomplicated; Z79.51 Long term (current) use of inhaled steroids
CPT/HCPCS: 36415; 36591; 80053; 99283; 71046; 83735; 84439; 84443; 85025; 99284

== ENCOUNTER 2022-06-16 03:09 | Outpatient (RCR) | payer MEDICARE, MEDICAID, SELFPAY ==
[2022-06-16] MEDS: Normal Saline Flush 10 ML SYR IVP (11:44)
[2022-06-16 11:53] LABS: Abs Immature Grans 0.02 10^3/uL (0.0-0.06); Absolute Basophil Count 0.05 10^3/uL (0.0-0.2); Absolute Eosinophil Count 0.13 10^3/uL (0.0-0.7); Absolute Lymphocyte Count 0.68 10^3/uL (1.2-3.4); Absolute Monocyte Count 0.72 10^3/uL (0.1-0.8); Absolute Neutrophil Count 6.66 10^3/uL (1.2-6.7); Basophils % 0.6; Eosinophils % 1.6; HCT 37.2 % (36.0-46.0); HGB 11.1 g/dL (11.2-15.7); Immature Grans % 0.2; Lymphocytes % 8.2; MCH 27.7 pg (27.0-33.0); MCHC 29.8 % (32.0-36.0); MCV 93 fL (80-95); MPV 11.6 fL (8.0-11.0); Monocytes % 8.7; Neutrophils % 80.7; Platelet Count 243 10^3/uL (130-400); RBC 4.01 10^6/uL (3.93-5.22); RDW 15.1 % (11.7-14.6); RDW-SD 51.6 fL; WBC 8.26 10^3/uL (4.4-10.8)
[2022-06-16 12:30] LABS: ALT 17 U/L (14-59); AST 13 U/L (15-37); Albumin 3.6 g/dL (3.4-5.0); Alkaline Phosphatase 104 U/L (46-116); Anion Gap 2.8 mmol/L (3-11); BUN 27 mg/dL (7-18); Bilirubin, Total 0.5 mg/dL (0.2-1.0); CO2 38.2 mmol/L (21.0-32.0); CREATININE 0.9 mg/dL (0.55-1.02); Calcium 10.3 mg/dL (8.5-10.1); Chloride 97 mmol/L (98-107); Estimated GFR 66.67 (mL/min/1.73m2); FREE T4 1.34 ng/dL (0.76-1.46); Glucose 93 mg/dL (74-106); Magnesium 1.5 mg/dL (1.8-2.4); Sodium 138 mmol/L (136-145); TSH 1.23 uIU/mL (0.36-3.74); Total Protein 6.8 g/dL (6.4-8.2)
== END 2022-06-27 23:59 | disposition home or self-care (01) ==
LOC: INF 03:09
PROVIDERS: Internal Medicine Medical Oncology; PCP Family Medicine; Visit Provider Nurse Practitioner Adult Health
DX: Z79.899 Other long term (current) drug therapy (principal); C34.32 Malignant neoplasm of lower lobe, left bronchus or lung; Z45.2 Encounter for adjustment and management of vascular access device
CPT/HCPCS: 36591; 80053; 83735; 84439; 84443; 85025

== ENCOUNTER 2022-06-24 19:01 | Inpatient (IN) | payer MEDICARE, MEDICAID, SELFPAY ==
[2022-06-24] VITALS (108 sets, daily range): BP systolic 104–122; BP diastolic 39–85; PULSE 60–73; RESP 10–25; TEMP 36.8; O2SAT 74–100
--- NOTE | 2022-06-24 19:00 | DI.RAD_ITS ---
Exam(s) XR PORTABLE CHEST AP EXAM: XR PORTABLE CHEST AP CLINICAL HISTORY: SHortness of breath TECHNIQUE: COMPARISON: CR XR CHEST 2V PA LATERAL from 06/16/2022 FINDINGS: Port-A-Cath again noted in position. There is mild cardiac enlargement. Mild elevation of the diaph ragm on the right was previously noted to be associated with pleural effusion. Nonspecific bilateral patchy pulmonary radiodensities are mostly unchanged from prior examination, probably scarring, acut e pneumonitis not entirely excluded involving portions of the left lung. Appropriate follow-up radio graphs recommended. IMPRESSION: Probably stable appearance, follow-up films may be obtained if there is a high clinical suspicion of pneumonitis. RADIATION DOSE DELIVERED: Total DLP
--- NOTE | 2022-06-24 19:00 | RT.EKG_ITS ---
APPROVED REPORT Exam: Resting ECG Reason for Exam: sob Patient Location: E HR:69 bpm ECG Measurements Heart Rate 69 AXIS AL 150 P 36 QRSd 77 QRS 58 QT 398 T 29 QTc 426 Conclusion Sinus rhythm No acute st/t changes
--- NOTE | 2022-06-24 19:15 | DI.CT_ITS ---
Exam(s) CT HEAD CERVICAL SPINE WO EXAM: CT HEAD CERVICAL SPINE WO COMPARISON: CT CT HEAD CERVICAL SPINE WO from 04/10/2022 FINDINGS: CT examination of the cervical spine was performed without contrast administration. There are modera te degenerative changes of the cervical spine. There is no evidence of acute cervical spine fracture or dislocation. Intervertebral disc spaces are well maintained. Tracheolaryngeal structures appear intact. No cervical mass or adenopathy. Noncontrast cranial CT was performed. There is significant motion artifact which limits evaluation. There is question curvilinear radioden sity over left frontal and parietal region crossing the midline with appearance consistent with artif act from motion. Small subdural hematoma not entirely excluded, repeat scan suggested. Ventricular system is normal in appearance. No evidence of acute intracranial hemorrhage, mass effect, or midline shift. No calvarial fracture. The orbital and temporal bone structures appear intact. Visualized mastoid air cells and paranasal sinuses appear clear. IMPRESSION: No evidence of acute cervical spine injury. Questionable finding on cranial CT as described above, motion artifact versus thin subdural hematoma, repeat scan recommended.. RADIATION DOSE DELIVERED: 1,375.2mGy.cm Total DLP 1,375.2mGy.cm Total DLP !Error CTDIvol DATA REPOSITORY: All CT scans at this facility are submitted to the National Radiology Data Registry (NRDR) Dose Index Registry (DIR) with the [employer] (A[employer]). RADIATION OPTIMIZATION: All CT scans at this facility use at least one of these dose optimization te chniques: automated exposure control; mA and/or kV adjustment per patient size (includes targeted exa ms where dose is matched to clinical indication); or iterative reconstruction.
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
[2022-06-24 19:45] LABS: Abs Immature Grans 0.03 10^3/uL (0.0-0.06); Absolute Basophil Count 0.04 10^3/uL (0.0-0.2); Absolute Eosinophil Count 0.13 10^3/uL (0.0-0.7); Absolute Monocyte Count 0.88 10^3/uL (0.1-0.8); Absolute Neutrophil Count 7.27 10^3/uL (1.2-6.7); Basophils % 0.4; Eosinophils % 1.4; HCT 34.4 % (36.0-46.0); HGB 10.3 g/dL (11.2-15.7); Immature Grans % 0.3; Lymphocytes % 8.7; MCH 27.9 pg (27.0-33.0); MCHC 29.9 % (32.0-36.0); MCV 93 fL (80-95); MPV 11.9 fL (8.0-11.0); Monocytes % 9.6; Neutrophils % 79.6; Platelet Count 213 10^3/uL (130-400); RBC 3.69 10^6/uL (3.93-5.22); RDW 15.9 % (11.7-14.6); RDW-SD 54.4 fL; WBC 9.15 10^3/uL (4.4-10.8)
[2022-06-24] MEDS: methylPREDNISolone SUCC 125 MG VIAL IVP (20:28)
--- NOTE | 2022-06-24 20:28 | DI.VRAD_ITS ---
Addendum created by Joaquín Balderrama MD on 06/24/2022 8:35:49 PM EDT: THIS REPORT CONTAINS FINDINGS THAT MAY BE CRITICAL TO PATIENT CARE. The findings were verbally communicated via telephone conference with Dr. Quick at 8:35 PM EDT on 06/24/2022. The findings were acknowledged and understood. Initial report created on 06/24/2022 8:27:32 PM EDT: PROCEDURE INFORMATION: Exam: CT Head Without Contrast Exam date and time: 06/24/2022 7:55 PM Age: 76 years old Clinical indication: Other: Fall, frontal contusion, headache TECHNIQUE: Imaging protocol: Computed tomography of the head without contrast. COMPARISON: CT HEAD CERVICAL SPINE WO 04/10/2022 11:36 AM FINDINGS: Brain: High attenuation curvilinear density along the left frontal and left parietal region may represent a subdural hematoma although this also could represent artifact from motion. Consider repeating this study without motion artifact as soon as possible. There is no significant cerebral atrophy present. There is no significant white matter disease present. Cerebral ventricles: The ventricular system is normal in caliber and are seen in the midline. Paranasal sinuses: There is no evidence of fluid levels, mucoperiosteal thickening, or opacification to suggest acute or chronic sinusitis. Mastoid air cells: The mastoid aircells are normal. Orbital cavities: The orbits are normal without evidence of fracture. There is no evidence of retro-bulbar hemorrhage. There is no evidence of globe or lens injury. Bones/joints: The bony cranium shows no evidence of injury or other acute pathologic processes. Soft tissues: Soft tissue contusion at the left greater than right frontal region. Other findings: Motion artifact does moderately limit the sensitivity of this examination. There is no evidence of an acute ischemic event. IMPRESSION: 1. High attenuation curvilinear density along the left frontal and left parietal region may represent a subdural hematoma although this also could represent artifact from motion. Consider repeating this study without motion artifact as soon as possible. 2. Soft tissue contusion at the left greater than right frontal region. PROCEDURE INFORMATION: Exam: CT Cervical Spine Without Contrast Exam date and time: 06/24/2022 7:55 PM Age: 76 years old Clinical indication: Other: Fall, frontal contusion, headache TECHNIQUE: Imaging protocol: Computed tomography of the cervical spine without contrast. Radiation optimization: All CT scans at this facility use at least one of these dose optimization techniques: automated exposure control; mA and/or kV adjustment per patient size (includes targeted exams where dose is matched to clinical indication); or iterative reconstruction. COMPARISON: CT HEAD CERVICAL SPINE WO 04/10/2022 11:36 AM FINDINGS: Bones/joints: There is no evidence of acute vertebral body element or posterior vertebral element fracture. The anterior posterior borders of the vertebral bodies are in good alignment. No evidence of acute subluxation. No evidence of acute compression fractures. There are moderate to severe degenerative changes of the cervical spine. Mild neurforaminal narrowing secondary to degenerative changes present. Mild narrowing of the central spinal canal secondary to degenerative changes. There is no evidence of acute disc injury. The spinal canal and cord are otherwise normal. The visualized portions of the skull base and brain are unremarkable. Lungs: Ground-glass opacity the apex of the left lung measuring 11 mm incompletely image. This may represent scarring atelectasis although an early left apical mass cannot be excluded. Mild centrilobular emphysematous changes are present. Lymph nodes: There is no evidence of lymphadenopathy. Soft tissues: The prevertebal, paravertebral, pharyngeal, hypopharyngeal, and laryngeal soft tissue structures are unremarkable. IMPRESSION: 1. There is no evidence of acute vertebral body element or posterior vertebral element fracture. 2. The anterior posterior borders of the vertebral bodies are in good alignment. No evidence of acute subluxation. 3. There are moderate to severe degenerative changes of the cervical spine. 4. There is no evidence of acute disc injury. Dictated and Authenticated by: Joaquín Balderrama MD. Ordering:ZANDER Negro MD
--- NOTE | 2022-06-24 20:28 | DI.VRAD_ITS ---
PROCEDURE INFORMATION: Exam: XR Chest Exam date and time: 06/24/2022 8:09 PM Age: 76 years old Clinical indication: Shortness of breath; Prior surgery; Surgery date: 1-6 months; Surgery type: Port; Patient HX: SOB TECHNIQUE: Imaging protocol: Radiologic exam of the chest. Views: 1 view. COMPARISON: CR XR CHEST 2V PA LATERAL 06/16/2022 11:22 AM FINDINGS: Tubes, catheters and devices: Left subclavian central venous catheter tip in the lower superior vena cava. Lungs: Bilateral minimal scattered ground-glass and linear opacities, similar to prior study, likely areas of atelectasis/scarring and/or minimal pneumonitis. Pleural spaces: Unremarkable. No pleural effusion. No pneumothorax. Heart/Mediastinum: Cardiomegaly. Vasculature: Atherosclerotic vascular disease. Bones/joints: Multilevel thoracic spine degenerative disc space narrowing and osteophyte formation. IMPRESSION: Bilateral minimal scattered ground-glass and linear opacities, similar to prior study, likely areas of atelectasis/scarring and/or minimal pneumonitis. Dictated and Authenticated by: Tang Aden MD. Ordering:ZANDER Negro MD
[2022-06-24] MEDS: Albuterol/Ipratropium 3 ML UPD VIAL UPD (20:29)
--- NOTE | 2022-06-24 20:30 | DI.CT_ITS ---
Exam(s) CT HEAD WO EXAM: CT HEAD WO CLINICAL HISTORY: motion artifact vs small SDH on earlier scan. TECHNIQUE: Imaging Protocol: Axial computed tomography images with coronal and sagittal reformatted images were created and reviewed COMPARISON: CT CT HEAD CERVICAL SPINE WO from 06/24/2022 FINDINGS: There is mild generalized cerebral atrophy.. No evidence of acute intracranial hemorrhage, mass effect, or midline shift. An area of questionable curvilinear increased attenuation seen on prior CT is not present current exa mination and appears to have been artifactual. The orbital structures are unremarkable. The temporal bone structures appear intact. Calvarium: Normal. Visualized Paranasal sinuses/Mastoids: Clear. IMPRESSION: No evidence of acute process, presumed artifact noted on prior head CT has resolved.. RADIATION DOSE DELIVERED: 888.77mGy.cm Total DLP 888.77mGy.cm Total DLP !Error CTDIvol DATA REPOSITORY: All CT scans at this facility are submitted to the National Radiology Data Registry (NRDR) Dose Index Registry (DIR) with the [employer] (A[employer]). RADIATION OPTIMIZATION: All CT scans at this facility use at least one of these dose optimization te chniques: automated exposure control; mA and/or kV adjustment per patient size (includes targeted exa ms where dose is matched to clinical indication); or iterative reconstruction.
[2022-06-24 20:37] LABS: ALT 16 U/L (14-59); AST 23 U/L (15-37); Albumin 3.6 g/dL (3.4-5.0); Alkaline Phosphatase 108 U/L (46-116); Anion Gap 2.4 mmol/L (3-11); BUN 44 mg/dL (7-18); Bilirubin, Total 0.4 mg/dL (0.2-1.0); CO2 37.6 mmol/L (21.0-32.0); CREATININE 1.4 mg/dL (0.55-1.02); Calcium 9.3 mg/dL (8.5-10.1); Chloride 98 mmol/L (98-107); Estimated GFR 39.23 (mL/min/1.73m2); Glucose 102 mg/dL (74-106); Potassium 4.4 mmol/L (3.5-5.1); Sodium 138 mmol/L (136-145); Total Protein 6.3 g/dL (6.4-8.2)
[2022-06-24 21:03] LABS: Troponin I 93 ng/L (<or=60)
[2022-06-24 21:06] LABS: BE (Venous) 9 mmol/L (-2-3); HCO3 (Venous) 36 mmol/L (23-28); O2 Sat (Venous) 90 %; TCO2 (Venous) 34 mmol/L (24-29); pH (Venous) 7.25 (7.31-7.41); pO2 (Venous) 66 mmHg
[2022-06-24 21:08] LABS: pCO2 (Venous) 81 mmHg (41-51)
[2022-06-24 22:12] LABS: BE (Venous) 9 mmol/L (-2-3); HCO3 (Venous) 36 mmol/L (23-28); O2 Sat (Venous) 88 %; TCO2 (Venous) 34 mmol/L (24-29); pH (Venous) 7.28 (7.31-7.41); pO2 (Venous) 59 mmHg
[2022-06-24 22:14] LABS: pCO2 (Venous) 77 mmHg (41-51)
[2022-06-24 22:19] LABS: Influenza A PCR Negative (Negative); Influenza B PCR Negative (Negative); RSV PCR Negative (Negative)
[2022-06-24 22:25] LABS: COVID-19 PCR Positive (Negative); Source Nasopharynx
--- NOTE | 2022-06-24 23:02 | DI.VRAD_ITS ---
PROCEDURE INFORMATION: Exam: CT Head Without Contrast Exam date and time: 06/24/2022 10:34 PM Age: 76 years old Clinical indication: Pain; Headache not specified; Patient HX: Fall, headache, motion artifact vs small sdh on earlier scan TECHNIQUE: Imaging protocol: Computed tomography of the head without contrast. Radiation optimization: All CT scans at this facility use at least one of these dose optimization techniques: automated exposure control; mA and/or kV adjustment per patient size (includes targeted exams where dose is matched to clinical indication); or iterative reconstruction. COMPARISON: CT HEAD CERVICAL SPINE WO 06/24/2022 7:55 PM FINDINGS: Brain: Periventricular and subcortical white matter areas of hypoattenuation, likely chronic small vessel ischemic change, demyelination, or gliosis. No intracranial mass, acute hemorrhage, or acute infarction. Cerebral ventricles: No ventriculomegaly. Paranasal sinuses: Visualized sinuses are unremarkable. No fluid levels. Mastoid air cells: Normal as visualized. Bones/joints: Normal. Soft tissues: Minimal left frontal soft tissue swelling/contusion. Vasculature: Atherosclerotic vascular disease. IMPRESSION: No acute intracranial abnormality. No intracranial hemorrhage. Dictated and Authenticated by: Tang Aden MD. Ordering:STEFAN Urbano MD
--- NOTE | 2022-06-24 23:40 | W.EDPROG ---
Date of service: 06/24/22 Time of Service: 23:40 Medical Decision Making Patient signed out to me after presenting with altered mental status, difficulty breathing, fall a couple days ago. Apparently had been discharged from rehab short time ago. Received neb treatment in route. Ordered for steroids and DuoNeb here. After signout I went to evaluate the patient. She had just returned from CT. She is quite lethargic but does arouse to loud verbal stimuli and tactile stimuli. She does not appear to be in respiratory distress. End-tidal CO2 on the monitor is in the 90s. Her pulse ox is low 90. I ordered a VBG in addition to previous labs. Initial head CT with artifact versus small subdural and recommendation for repeat head CT per radiology. Cervical spine CT negative. Portable chest x-ray unchanged per radiology wet read. Baseline anemia present. Kidney function elevated compared to baseline. Bicarb elevated consistent with chronic respiratory disease. Electrolytes are okay otherwise. Troponin mildly elevated but much higher with previous admission. VBG with pH of 7.25 and PCO2 81 which is above her baseline. Given this I elected to start the patient on BiPAP. Respiratory was called in. Patient did seem to improve with the BiPAP. Repeat VBG was obtained approximately 30 to 40 minutes after being on BiPAP. Venous pH improved to 7.28 and PCO2 on its way down at 77. Patient COVID result is positive. There is no previous positive COVID in the system. Patient will be started on remdesivir. She has already received steroids. Repeat head CT without evidence of bleed. Case discussed with hospitalist. Patient is palliative care patient and is DNR/DNI. She will be admitted to the ICU on BiPAP for further management of acute on chronic respiratory failure, COVID-19, COPD. Medical Records Medical records reviewed: Yes I reviewed the patient's medical records. Lab Data Lab results reviewed: Yes I reviewed the patient's lab results. Exam Narrative Exam Narrative: Const: WDWN elderly female in NAD. HEENT: NC/AT. Normal facial exam. Eyes: Normal conjunctiva and sclera. Neck: Supple. Trachea midline. Lungs: Normal respiratory effort. Lungs are diminished with some wheezing/rhonchi. Cor: RRR. Good radial pulse GI: Soft. NT Neuro: Somnolent but arouses to loud voice or tactile stimuli. Cranial nerves II - XII grossly intact. No gross motor or sensory deficit. Ext: No C/C/E. Skin: Warm and dry without rash. Critical Care Time Critical Care Time Critical Care Time: Yes Total Critical Care Time: 60 Attestation: Upon my evaluation, this patient had a high probability of imminent or life-threatening deterioration, which required my direct attention, intervention, and personal management. I have personally provided 60 minutes of critical care time exclusive of time spent on separately billable procedures. Time includes review of laboratory data, radiology results, discussion with consultants, and monitoring for potential decompensation. Interventions were performed as documented above. Sign Out Sign Out Data: Sign Out Comment: COPD exacerbation, r/o head injury. Diagnostics pending Last updated by Marky Granados MD at 06/24/22 19:35 Discharge Plan Disposition Patient Disposition: [facility] INPATIENT Condition: Poor Discharge Details Clinical Impression: Acute and chronic respiratory failure, COVID-19, COPD (chronic obstructive pulmonary disease) Primary Care Provider: Arianna Nunez ED Provider: Sundeep Quick [facility] and New Rx's Prescriptions: No Action Keytruda 25 mg/mL solution 200 mg IV Q3W Qty: 4 0RF Rx Instructions: administer over 30 mins Breztri Aerosphere 160-9-4.8 mcg/actuation HFA aerosol inhaler 2 inh inhalation BID Qty: 10.7 12RF albuterol sulfate [ProAir HFA] 90 mcg/actuation HFA aerosol inhaler 2 puff inhalation Q6H PRN (Reason: shortness of breath or wheezing) Qty: 8.5 12RF Mucinex 1,200 mg tablet extended release 12hr 1,200 mg PO BID Qty: 60 0RF morphine 15 mg tablet 15 mg PO ONCE morphine 15 mg tablet extended release 15 mg PO Q12H acetaminophen 325 mg tablet 650 mg PO Q4H PRN polyethylene glycol 3350 17 gram/dose powder 17 g PO DAILY PRN Rx Instructions: One capful of powder mixed in 8 ox of liquid spironolactone 25 mg tablet 25 mg PO DAILY duloxetine 60 mg capsule,delayed release(DR/EC) 60 mg PO DAILY naloxone [Narcan] 4 mg/actuation spray,non-aerosol 4 mg intranasal Q2M Rx Instructions: spray 1 dose into ONE nostril; alternate nostrils w each dose until help arrives (DME) nebulizers Misc See Rx Instructions .ROUTE .MEDSUPPLY Qty: 1 Rx Instructions: As directed, COPD, neb supplies 1 device via nebulizer as directed use nebulizer as needed for shortness of breath. (DME) thien Mis See Rx Instructions .ROUTE .MEDSUPPLY Qty: 1 Rx Instructions: As directed torsemide 20 mg tablet 40 mg PO DAILY omeprazole 40 mg capsule,delayed release(DR/EC) 40 mg PO BID prednisone 2.5 mg tablet 2.5 mg PO DAILY Qty: 90 1RF morphine concentrate 100 mg/5 mL (20 mg/mL) solution 5 mg PO Q1H PRN MDD 60 mg Qty: 30 0RF Rx Instructions: 0.25-0.5 ml for acute breathlessness not for pain ipratropium-albuterol 0.5 mg-3 mg(2.5 mg base)/3 mL solution for nebulization 3 ml inhalation Q4H PRN (Reason: wheezing) Qty: 540 12RF atorvastatin 40 mg Tablet 40 mg PO QPM Qty: 0 0RF sucralfate 1 gram Tablet 1 g PO BID AC Qty: 60 0RF metoprolol succinate [Toprol XL] 25 mg tablet extended release 24 hr 25 mg PO HS Qty: 30 0RF
[2022-06-25] VITALS (51 sets, daily range): BP systolic 110–174; BP diastolic 46–107; PULSE 52–87; RESP 10–30; TEMP 36–37.1; O2SAT 83–96
[2022-06-25] MEDS: REMDESIVIR 200 MG in Normal Saline 250 ML 250 MG IVPB (00:11)
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
--- NOTE | 2022-06-25 10:21 | W.PULMCC ---
General Date of Service Date of service: 06/25/22 Time of Service: 08:30 Assessment and Plan Assessment and plan (1) Acute exacerbation of chronic obstructive pulmonary disease (COPD): Status: Acute (2) Acute on chronic respiratory failure with hypoxia and hypercapnia: Status: Acute (3) COVID-19: Status: Acute (4) Elevated troponin I level: Status: Acute (5) 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: Assessment and plan: This is a 76 yo female with COPD and lung cancer on pembro who recently got COVID who is now in a COPD exacerbation who needed BiPAP. I am hoping with use of her Trilogy the hypercarbia could be prevented. She is receiving treatment for COVID, particularly since her PCR was positive on admission. She is receiving her COPD regimen and is making improvements. Alternatively, pembrolizumab can cause a pneumonitis and so if she is not improving tomorrow, I would get a chest CT without contrast as she may need bronchoscopy to further assess this. Recommendations Pulmonary: Acute on chronic hypoxic and hypercapni respiratory failure - BiPAP/Trilogy at night - supplementary O2 for sats 88-92% - IS and Acapella - if not improving by tomorroe recommend chest CT without contrast COPD - Symbicort and SPiriva while in hospital - Breztri on discharge - Combivent QID Cardiac: Elevated troponin - due to demand Renal: No acute concerns I&O: Intake & Output 06/22/22 06/23/22 06/24/22 06/25/22 23:59 23:59 23:59 23:59 Weight 77.564 kg 79 kg Daily Fluid Goal:: even to negative GI Nutrition: PO diet is ok Date of Last Bowel Movement: 06/24/22 Infectious Disease: COVID-19 - receiving remdesivir and Decadron - if not improving Hematologic: No acute concerns Neurologic: No acute concerns Endocrine: No acute concerns Lines: Port Prophylaxis: Enoxaparin Pepcid Code Status: Resuscitation Status DNR/DNI Subjective Critical and life-threatening events over the past 24 hours: This is a 76 yo female with COPD, NSCLC on pembrolizumab and respiratory failure recently started on Trilogy who developed COVID and subsequent COPD exacerbation. She tells me that she did recover from her COVID infection but she did get sick again. Please see H&P for further details. Today she tells me she is doing well. She says she is still having a hard time with her breathing. She cannot remember the events of her coming to the hospital or even when she got admitted. Her breathing is still worse than her baseline. She actually had not started using her Trilogy as she was having confusion about some operation issues. Exam Narrative Exam Narrative: Gen: NAD, normal respiratory effort, exam HENT: PERRL, nasal turbinates normal without erythema or inflammation, moist oral mucosa, Mallampati 2, No LAD or JVD Chest: No respiratory distress, normal appearance of chest, diminished breath sounds Heart: regular rate and rhythym, no murmurs, rubs or gallops Abdomen: Non-distended, soft, non tender Extremities: No clubbing, + edema Neuro: AAOx3 , non focal Psych: cooperative, appropriate mental affect Most Recent VS/Results Last Vital Signs Temp 36.7 C 06/25/22 06:44 Pulse 67 06/25/22 06:34 Resp 16 06/25/22 06:34 BP 144/58 H 06/25/22 06:34 Pulse Ox 89 L 06/25/22 06:34 Laboratory Results - last 24 hr 06/24/22 06/24/22 06/24/22 19:33 19:33 20:57 WBC 9.15 RBC 3.69 L Hgb 10.3 L Hct 34.4 L MCV 93 MCH 27.9 MCHC 29.9 L RDW 15.9 H Plt Count 213 MPV 11.9 H Immature Gran % 0.3 Neutrophils % 79.6 Lymphocytes % 8.7 Monocytes % 9.6 Eosinophils % 1.4 Basophils % 0.4 Nucleated RBC % 0.0 Absolute Neutrophils 7.27 H Absolute Lymphocytes 0.80 L Absolute Monocytes 0.88 H Absolute Eosinophils 0.13 Absolute Basophils 0.04 VBG pH 7.25 L VBG pCO2 81 H* VBG pO2 66 VBG HCO3 36 H VBG Total CO2 34 H VBG O2 Saturation 90 VBG Base Excess 9 H Sodium 138 Potassium 4.4 Chloride 98 Carbon Dioxide 37.6 H Anion Gap 2.4 L BUN 44 H Creatinine 1.4 H Est GFR (CKD-EPI 2020) 39.23 Glucose 102 Calcium 9.3 Magnesium 2.0 Total Bilirubin 0.4 AST 23 ALT 16 Alkaline Phosphatase 108 Troponin I 93 H* Total Protein 6.3 L Albumin 3.6 COVID-19 Source SARS-CoV-2 (PCR) Influenza Type A (PCR) Influenza Type B (PCR) RSV (PCR) 06/24/22 06/24/22 21:38 22:06 WBC RBC Hgb Hct MCV MCH MCHC RDW Plt Count MPV Immature Gran % Neutrophils % Lymphocytes % Monocytes % Eosinophils % Basophils % Nucleated RBC % Absolute Neutrophils Absolute Lymphocytes Absolute Monocytes Absolute Eosinophils Absolute Basophils VBG pH 7.28 L VBG pCO2 77 H* VBG pO2 59 VBG HCO3 36 H VBG Total CO2 34 H VBG O2 Saturation 88 VBG Base Excess 9 H Sodium Potassium Chloride Carbon Dioxide Anion Gap BUN Creatinine Est GFR (CKD-EPI 2020) Glucose Calcium Magnesium Total Bilirubin AST ALT Alkaline Phosphatase Troponin I Total Protein Albumin COVID-19 Source Nasopharynx SARS-CoV-2 (PCR) Positive A Influenza Type A (PCR) Negative Influenza Type B (PCR) Negative RSV (PCR) Negative Review of Systems All systems reviewed & are unremarkable except as noted in HPI and below Time spent with patient Time spent in Critical Care: 35 Time spent in Critical care included: Chart review, Documenting critically ill care, Time at immediate bedside and Discussing critically ill care with other medical staff
[2022-06-25] MEDS: Normal Saline Flush 10 ML SYR IVP ×2 (10:31→21:08)
[2022-06-25] MEDS: DULoxetine 30 MG CAP 60 MG PO (10:32)
[2022-06-25] MEDS: Zinc Sulfate 220 MG TAB PO (10:33)
[2022-06-25] MEDS: Torsemide 20 MG TAB 40 MG PO (10:34)
[2022-06-25] MEDS: Ascorbic Acid 500 MG TAB 1000 MG PO ×2 (10:34→20:42)
[2022-06-25] MEDS: Omeprazole 20 MG CAPCR 40 MG PO ×2 (10:34→20:41)
[2022-06-25] MEDS: guaiFENesin 600 MG TABCR 1200 MG PO ×2 (10:35→20:42)
[2022-06-25] MEDS: Cholecalciferol (Vitamin D3) 1,000 UNIT TAB 2000 UNITS PO (10:35)
[2022-06-25] MEDS: Spironolactone 25 MG TAB PO (10:36)
[2022-06-25] MEDS: Enoxaparin 40 MG/0.4 ML SYR SC (10:36)
[2022-06-25] MEDS: Sucralfate 1 GM TAB PO ×2 (10:36→16:10)
[2022-06-25] MEDS: Dexamethasone 4 MG/ML VIAL 6 MG IVP (10:36)
[2022-06-25 11:03] LABS: BE (Venous) 9 mmol/L (-2-3); HCO3 (Venous) 35 mmol/L (23-28); O2 Sat (Venous) 86 %; TCO2 (Venous) 33 mmol/L (24-29); pH (Venous) 7.28 (7.31-7.41); pO2 (Venous) 58 mmHg
[2022-06-25 11:05] LABS: Abs Immature Grans 0.01 10^3/uL (0.0-0.06); Absolute Basophil Count 0.01 10^3/uL (0.0-0.2); Absolute Lymphocyte Count 0.38 10^3/uL (1.2-3.4); Absolute Monocyte Count 0.26 10^3/uL (0.1-0.8); Absolute Neutrophil Count 4.25 10^3/uL (1.2-6.7); Basophils % 0.2; HCT 35.5 % (36.0-46.0); HGB 10.9 g/dL (11.2-15.7); Immature Grans % 0.2; Lymphocytes % 7.7; MCH 28.2 pg (27.0-33.0); MCHC 30.7 % (32.0-36.0); MCV 92 fL (80-95); MPV 12.3 fL (8.0-11.0); Monocytes % 5.3; Neutrophils % 86.6; Platelet Count 218 10^3/uL (130-400); RBC 3.87 10^6/uL (3.93-5.22); RDW 15.9 % (11.7-14.6); RDW-SD 53.1 fL; WBC 4.91 10^3/uL (4.4-10.8); pCO2 (Venous) 75 mmHg (41-51)
[2022-06-25 11:06] LABS: Lactate 1.4 mmol/L (0.6-1.4)
[2022-06-25 11:33] LABS: Troponin I 58 ng/L (<or=60)
[2022-06-25 11:42] LABS: Lab Add On Test DONE
[2022-06-25 11:53] LABS: Procalcitonin < 0.1 ng/mL
[2022-06-25 11:55] LABS: Iron 34 ug/dL (50-170)
[2022-06-25] MEDS: Ipratropium/Albuterol 4 GM 120 PUFF INH IH ×3 (12:00→21:07)
[2022-06-25] MEDS: Budesonide/Formoterol 160/4.5 6 GM 60 PUFF INH IH ×2 (12:01→21:07)
--- NOTE | 2022-06-25 12:28 | RESPIRATORY ---
Patient baseline O2 is 2LPM and DME is [facility]. Patient stated when RT in room she's a CO2 retainer, doctor doesnt want above 2LPM.
[2022-06-25 14:51] LABS: ALT 20 U/L (14-59); AST 18 U/L (15-37); Albumin 3.5 g/dL (3.4-5.0); Alkaline Phosphatase 121 U/L (46-116); Anion Gap 2.8 mmol/L (3-11); BUN 44 mg/dL (7-18); Bilirubin, Direct 0.1 mg/dL (0.0-0.2); Bilirubin, Total 0.3 mg/dL (0.2-1.0); C-Reactive Protein 1.41 mg/dL (0.0-0.3); CO2 36.2 mmol/L (21.0-32.0); CREATININE 1.3 mg/dL (0.55-1.02); Calcium 9.9 mg/dL (8.5-10.1); Chloride 94 mmol/L (98-107); Estimated GFR 42.88 (mL/min/1.73m2); Glucose 214 mg/dL (74-106); Magnesium 2.3 mg/dL (1.8-2.4); PHOSPHORUS 4.5 mg/dL (2.6-4.7); Potassium 4.5 mmol/L (3.5-5.1); Sodium 133 mmol/L (136-145); TSH (W/Ref FT4) 0.47 uIU/mL (0.36-3.74); Total Protein 6.5 g/dL (6.4-8.2)
[2022-06-25 15:17] LABS: Ferritin 160 ng/mL (8-252)
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
[2022-06-25] MEDS: Atorvastatin 40 MG TAB PO (20:42)
[2022-06-25] MEDS: Nystatin POWDER 60 GM JAR TP (20:42)
[2022-06-25] MEDS: REMDESIVIR 100 MG in Normal Saline 250 ML 250 MG IVPB (20:43)
[2022-06-25] MEDS: Melatonin 3 MG TAB PO (21:07)
[2022-06-25] MEDS: Famotidine 20 MG/2 ML VIAL IVP (21:08)
[2022-06-25] MEDS: Metoprolol CR 25 MG TABCR PO (21:08)
[2022-06-26] VITALS (11 sets, daily range): BP systolic 112–145; BP diastolic 55–79; PULSE 61–76; RESP 13–22; TEMP 36.4; O2SAT 89–98
[2022-06-26 05:45] LABS: Vitamin D 25 Total 9.5 ng/mL (30-100)
--- NOTE | 2022-06-26 08:36 | CMPROGNOTE_ITS ---
- If Service Date Differs Date of service: 06/26/22 Time of Service: 08:36 Care Management Progress Note S/O:Madelin was sitting up in bed when CM met with her. She was pleasant in interaction and agreeable to conversation. Madelin informed CM that she is feeling much better. She also reported that she plans to go on hospice when she returns home. She understands that she will have more support avilable to her, which she needs. Madelin also shared that she contracted Covid in early May and was quite ill. She still tests positive but her isolation was able to be discontinued today as it has been several weeks since onset. A: Madelin is a 76 year old woman admitted on 06/24/22 with covid pneumonia P:Madelin had a Palliative care consult at the end of the day yesterday and made the decision to go home on hospice when she is ready for discharge. A formal Hospice consult will be ordered so that Madelin and her family can meet the digital content coordinator and assess the need for equipment etc. CM will continue to support Madelin and assess for ongoing discharge concerns.
[2022-06-26] MEDS: Budesonide/Formoterol 160/4.5 6 GM 60 PUFF INH IH ×2 (08:37→20:13)
[2022-06-26] MEDS: Ipratropium/Albuterol 4 GM 120 PUFF INH IH ×4 (08:38→20:13)
[2022-06-26] MEDS: Cholecalciferol (Vitamin D3) 1,000 UNIT TAB 2000 UNITS PO (09:05)
[2022-06-26] MEDS: Omeprazole 20 MG CAPCR 40 MG PO ×2 (09:06→20:11)
[2022-06-26] MEDS: Zinc Sulfate 220 MG TAB PO (09:06)
[2022-06-26] MEDS: Spironolactone 25 MG TAB PO (09:06)
[2022-06-26] MEDS: Torsemide 20 MG TAB 40 MG PO (09:06)
[2022-06-26] MEDS: Ascorbic Acid 500 MG TAB 1000 MG PO ×2 (09:06→20:10)
[2022-06-26] MEDS: DULoxetine 30 MG CAP 60 MG PO (09:06)
[2022-06-26] MEDS: guaiFENesin 600 MG TABCR 1200 MG PO ×2 (09:06→20:11)
[2022-06-26] MEDS: Sucralfate 1 GM TAB PO ×2 (09:07→16:52)
[2022-06-26] MEDS: Nystatin POWDER 60 GM JAR TP ×2 (09:07→20:12)
[2022-06-26] MEDS: Enoxaparin 40 MG/0.4 ML SYR SC (09:07)
[2022-06-26] MEDS: Dexamethasone 4 MG/ML VIAL 6 MG IVP (09:07)
[2022-06-26] MEDS: Normal Saline Flush 10 ML SYR IVP ×2 (09:08→21:29)
[2022-06-26] MEDS: Ondansetron O.D.T. 4 MG TABEF PO (12:45)
--- NOTE | 2022-06-26 17:35 | W.PM.PROGNOT ---
Date of Service Date of service: 06/26/22 Time of Service: 17:35 Assessment and Plan Assessment and plan (1) COVID-19: Status: Acute Assessment and plan: The patient states that she was first diagnosed with this on 06/04, after which she got better but then started to feel worse. She is immunosuppressed on keytruda and it is plausible that she has a hard time clearing her covid infection. Acute symptomatic disease at this time and that it is triggering her COPD exacertbation. Treat with remdesivir, dexamethasone, Vit C, D, zinc, pepcid,melatonin, IS/Acapella, BiPAP. Improving. (2) Acute on chronic respiratory failure with hypoxia and hypercapnia: Status: Acute Assessment and plan: As above Stable now on 2L; home requirement. (3) Acute exacerbation of chronic obstructive pulmonary disease (COPD): Status: Acute Assessment and plan: as above (4) Elevated troponin I level: Status: Acute Assessment and plan: very minimally elevated troponin in setting of acute respiratory illness. Trop 93 > 58. (5) DVT prophylaxis: Status: Acute Assessment and plan: SC lovenox (6) Discharge planning issues: Status: Acute Assessment and plan: DNR/DNI Palliative care consult appreciated. Pt planning to d/c with hospice. 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 Subjective Subjective Patient reports: feels better, tolerating a regular diet and afebrile; denies nausea, vomiting or shortness of breath (with activity) Exam Narrative Exam Narrative: General: Pleasant elderly female with a purple ecchymosis on her forehead. Sitting in chair. Pleasant/cooperative. Appears frail. Neurological: A&Ox3, no focal deficits Psychiatric: Appropriate speech pattern/content. Appropriate affect. Skin: Ecchymosis center of forehead, otherwise no rashes/bruises HEENT: sclera clear. MMM Cardiovascular: RRR, no murmur Lungs: Diminished breath sounds B Gastrointestinal: soft,nontender, nondistended Genitourinary: has a baxter Extremities: trace edema BLEs, no calf tenderness Objective Last Vital Signs Temp 37.1 C 06/25/22 16:00 Pulse 69 06/26/22 00:34 Resp 15 06/26/22 08:00 BP 145/79 H 06/26/22 00:34 Pulse Ox 98 06/26/22 06:00 Laboratory Results - last 24 hr 06/25/22 10:50 25-OH Vitamin D Total 9.5 L
[2022-06-26] MEDS: Atorvastatin 40 MG TAB PO (20:10)
[2022-06-26] MEDS: Metoprolol CR 25 MG TABCR PO (21:29)
[2022-06-26] MEDS: Melatonin 3 MG TAB PO (21:29)
[2022-06-26] MEDS: REMDESIVIR 100 MG in Normal Saline 250 ML 250 MG IVPB (21:30)
[2022-06-26] MEDS: Famotidine 20 MG/2 ML VIAL IVP (21:30)
[2022-06-27] VITALS (8 sets, daily range): BP systolic 120–150; BP diastolic 61–80; PULSE 55–74; RESP 15–20; TEMP 36.4–37.3; O2SAT 92–99
[2022-06-27] MEDS: Ascorbic Acid 500 MG TAB 1000 MG PO ×2 (07:38→19:34)
[2022-06-27] MEDS: guaiFENesin 600 MG TABCR 1200 MG PO ×2 (07:38→19:34)
[2022-06-27] MEDS: Zinc Sulfate 220 MG TAB PO (07:38)
[2022-06-27] MEDS: Cholecalciferol (Vitamin D3) 1,000 UNIT TAB 2000 UNITS PO (07:38)
[2022-06-27] MEDS: Torsemide 20 MG TAB 40 MG PO (07:39)
[2022-06-27] MEDS: Sucralfate 1 GM TAB PO ×2 (07:39→17:24)
[2022-06-27] MEDS: Spironolactone 25 MG TAB PO (07:39)
[2022-06-27] MEDS: Omeprazole 20 MG CAPCR 40 MG PO ×2 (07:39→19:34)
[2022-06-27] MEDS: Enoxaparin 40 MG/0.4 ML SYR SC (07:39)
[2022-06-27] MEDS: DULoxetine 30 MG CAP 60 MG PO (07:39)
[2022-06-27] MEDS: Nystatin POWDER 60 GM JAR TP ×2 (07:52→19:33)
[2022-06-27] MEDS: predniSONE 20 MG TAB 40 MG PO (08:03)
--- NOTE | 2022-06-27 08:38 | CMPROGNOTE_ITS ---
- If Service Date Differs Date of service: 06/27/22 Time of Service: 08:38 Care Management Progress Note S/O:Madelin was sitting up in bed when CM met with her. She was pleasant in interaction and agreeable to conversation. Madelin informed CM that she still is not feeling well and would like to remain in the hospital one more day. She was complaining of nausea during CM's visit and was medicated with Zofran by her nurse. Madelin stated that this is chronic issue and that she takes Zofran at home as well. Madelin had a hospice consult today but her daughter Bryanna did not come. CM called and left her a message a couple of hours before the meeting but did not hear back. While Madelin does meet hospice criteria, she does not have a designated caregiver at this time. She will have a resumption of her home health services when she returns home. A: Madelin is a 76 year old woman admitted on 06/24/22 with covid pneumonia P:Madelin had a Palliative care consult at the end of the day yesterday and made the decision to go home on hospice when she is ready for discharge. A formal Hospice consult will be ordered so that Madelin and her family can meet the hospice clinical supervisor and assess the need for equipment etc. CM will continue to support Madelin and assess for ongoing discharge concerns.
[2022-06-27] MEDS: Budesonide/Formoterol 160/4.5 6 GM 60 PUFF INH IH ×2 (08:46→19:33)
[2022-06-27] MEDS: Ipratropium/Albuterol 4 GM 120 PUFF INH IH ×4 (08:46→19:33)
[2022-06-27] MEDS: Ondansetron O.D.T. 4 MG TABEF PO ×2 (09:49→19:31)
[2022-06-27] MEDS: Normal Saline Flush 10 ML SYR IVP ×2 (11:58→21:19)
[2022-06-27] MEDS: Ondansetron 4 MG/2 ML VIAL IVP (11:58)
--- NOTE | 2022-06-27 12:43 | PGE_ITS ---
Date of Service Date of service: 06/27/22 Time of Service: 12:45 Assessment and Plan Assessment and plan (1) COVID-19: Status: Acute Assessment and plan: The patient states that she was first diagnosed with this on 06/04, after which she got better but then started to feel worse. She is immunosuppressed on keytruda and it is plausible that she has a hard time clearing her covid infection. Acute symptomatic disease at this time and that it is triggering her COPD exacertbation. Treat with remdesivir, dexamethasone, Vit C, D, zinc, pepcid,melatonin, IS/Acapella, BiPAP. Improving. (2) Acute on chronic respiratory failure with hypoxia and hypercapnia: Status: Acute Assessment and plan: As above Stable now on 2L; home requirement. (3) Acute exacerbation of chronic obstructive pulmonary disease (COPD): Status: Acute Assessment and plan: as above (4) Elevated troponin I level: Status: Acute Assessment and plan: very minimally elevated troponin in setting of acute respiratory illness. Trop 93 > 58. (5) DVT prophylaxis: Status: Acute Assessment and plan: SC lovenox (6) Discharge planning issues: Status: Acute Assessment and plan: DNR/DNI Palliative care consult appreciated. Pt planning to d/c with hospice. 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 Subjective Subjective Patient reports: no new complaints, tolerating a regular diet, shortness of breath (With exertion; near baseline per pt. ) and afebrile; denies nausea or vomiting Exam Narrative Exam Narrative: General: Pleasant elderly female. Sitting in chair. Pleasant/cooperative. Appears frail. Neurological: A&Ox3, no focal deficits Psychiatric: Appropriate speech pattern/content. Appropriate affect. Skin: Ecchymosis center of forehead without swelling. No rashes/bruises HEENT: sclera clear. MMM Cardiovascular: RRR, no murmur Lungs: Diminished breath sounds B Gastrointestinal: soft,nontender, nondistended Extremities: trace edema BLEs, no calf tenderness Objective Last Vital Signs Temp 37.0 C 06/27/22 08:36 Pulse 59 L 06/27/22 08:36 Resp 18 06/27/22 08:36 BP 139/74 06/27/22 08:36 Pulse Ox 93 06/27/22 11:51
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
[2022-06-27] MEDS: Atorvastatin 40 MG TAB PO (19:34)
[2022-06-27] MEDS: Metoprolol CR 25 MG TABCR PO (20:59)
[2022-06-27] MEDS: Melatonin 3 MG TAB PO (20:59)
[2022-06-27] MEDS: REMDESIVIR 100 MG in Normal Saline 250 ML 250 MG IVPB (20:59)
[2022-06-27] MEDS: Famotidine 20 MG/2 ML VIAL IVP (21:19)
[2022-06-28] MEDS: Ondansetron O.D.T. 4 MG TABEF PO (01:58)
[2022-06-28 07:15] VITALS: BP 107/57; PULSE 60; RESP 16; TEMP 36.5; O2SAT 100
[2022-06-28] MEDS: DULoxetine 30 MG CAP 60 MG PO (08:05)
[2022-06-28] MEDS: Torsemide 20 MG TAB 40 MG PO (08:05)
[2022-06-28] MEDS: Enoxaparin 40 MG/0.4 ML SYR SC (08:05)
[2022-06-28] MEDS: Omeprazole 20 MG CAPCR 40 MG PO (08:05)
[2022-06-28] MEDS: Ascorbic Acid 500 MG TAB 1000 MG PO (08:05)
[2022-06-28] MEDS: Zinc Sulfate 220 MG TAB PO (08:05)
[2022-06-28] MEDS: Sucralfate 1 GM TAB PO (08:05)
[2022-06-28] MEDS: Spironolactone 25 MG TAB PO (08:05)
[2022-06-28] MEDS: Cholecalciferol (Vitamin D3) 1,000 UNIT TAB 2000 UNITS PO (08:05)
[2022-06-28] MEDS: predniSONE 20 MG TAB 40 MG PO (08:05)
[2022-06-28] MEDS: guaiFENesin 600 MG TABCR 1200 MG PO (08:05)
[2022-06-28] MEDS: Nystatin POWDER 60 GM JAR TP (08:06)
[2022-06-28] MEDS: Ipratropium/Albuterol 4 GM 120 PUFF INH IH (08:11)
[2022-06-28] MEDS: Budesonide/Formoterol 160/4.5 6 GM 60 PUFF INH IH (08:14)
[2022-06-28 09:21] VITALS: RESP 15
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
--- NOTE | 2022-06-28 12:27 | PDOC.CMDIS ---
- If Service Date Differs Date of service: 06/28/22 Time of Service: 12:27 LACE Index Scoring Tool - Questions: Length of Stay (in days): 4 - 6 Acuity (Admit via E.D.?): Yes Comorbidities: Chronic Pulmonary Disease E.D. Visits: 6 - Answers: Total Score: 13 Risk of Readmission: High Risk Care Management Discharge Reason for Hospitalization: Covid 19/ respiratory failure Discharge Plan: Madelin will return home today with a resumption of HH services. She met with Hospice and Palliative during this admission, and she will likely admit to Hospice while at home, although she has not identified her caregiver. Her daughter will drive her home via private vehicle. She will follow up with her PCP and discharge plan of care. Madelin stated that she feels ready to return home today. Patient/Family Education Needs: Review discharge instructions and limitations, discussion of self care needs including ask me three and goals of care. Services Needed at Discharge: Home Health Care Services (resume HH)
[2022-06-28] MEDS: Heparin 500 UNITS/5 ML SYRINGE IV (12:55)
[2022-06-28] MEDS: Normal Saline Flush 10 ML SYR IVP (12:56)
== END 2022-06-28 13:09 | disposition home health service (06) | DRG 177 ==
LOC: ER 06-25 00:17 → ICU 06-25 04:48 → MS 06-26 22:11
PROVIDERS: Emergency Medicine; Family Medicine; Admitting Provider Internal Medicine; Emergency Provider Emergency Medicine; PCP Family Medicine; Visit Provider Internal Medicine
DX: U07.1 COVID-19 (principal); J96.21 Acute and chronic respiratory failure with hypoxia; J96.22 Acute and chronic respiratory failure with hypercapnia; J44.1 Chronic obstructive pulmonary disease with (acute) exacerbation; C34.32 Malignant neoplasm of lower lobe, left bronchus or lung; Z79.69 Long term (current) use of other immunomodulators and immunosuppressants; R74.8 Abnormal levels of other serum enzymes; Z66 Do not resuscitate; Z99.81 Dependence on supplemental oxygen; I10 Essential (primary) hypertension; E78.5 Hyperlipidemia, unspecified; W19.XXXA Unspecified fall, initial encounter; D50.9 Iron deficiency anemia, unspecified; K59.00 Constipation, unspecified; F17.210 Nicotine dependence, cigarettes, uncomplicated; Z79.899 Other long term (current) drug therapy; I51.89 Other ill-defined heart diseases; Z85.3 Personal history of malignant neoplasm of breast; G89.29 Other chronic pain; F32.A Depression, unspecified; K21.9 Gastro-esophageal reflux disease without esophagitis; G43.909 Migraine, unspecified, not intractable, without status migrainosus; G31.84 Mild cognitive impairment of uncertain or unknown etiology; S00.83XA Contusion of other part of head, initial encounter
CPT/HCPCS: 36591; 51702; 80048; 80053; 80076; 82306; 82805; 84145; 87637; 93005; 94640; 96365; 96366; 96375; 97161; 99291; J1650; 70450; 71045; 72125; 82728; 83540; 83605; 83735; 84100; 84443; 84484; 85025; 86140; 93010; 94660; 94667; 99232; 99239; J0248; J1100; J2405; J2930; J3490; J7512; J7620

== ENCOUNTER → 2022-07-03 02:04 | Outpatient (CLI) | payer MEDICARE, MEDICAID, SELFPAY ==
--- NOTE | 2022-07-03 | DI.NM_ITS ---
APPROVED REPORT Exam: Pharmacologic Patient Location: Out-Patient Room/Bed: Stress Nurse: Giovanna Barnett RN Ordering Provider:JOYCE ALEXIS, Contact Number: [phone] BMI: 27.95 Baseline Rhythm: Sinus Rhythm Comment: PVC's, + T wave in V1, inverted T wave in aVL Indications: Atypical CP, Elevated Troponins, COPD Medical History Medical History: COPD, tobacco use, resp failure, anxiety, chronic pain, oxygen dependent, mild cog. impairement, HTN, HLD, left lung adenocarcinoma, COVID 19, CHF, elevated troponins, anxiety, depressi on, breast CA, GERD Cardiac Medications: atorvastatin, spironolactone, omeprazole, torsemide, albuterol sulfate, losartan Allergies: PCN, Tetracycline Cardiac Risk Factors: +Family history, HTN, HLD, COPD, Current smoker Previous Cardiac Procedures: None Pretest Chest Pain Characteristics: None Exercise History: Sedentary Physical Disabilities: chronic shortness of breath at rest Lung Sounds: Wheezes throughout Heart Sounds: +murmur Stress Test Details Test: Pharmacologic stress testing performed using 0.4 mg of regadenoson per 5 mL given IV over 10 s econds. Reason for pharmacologic stress test: physical limitation. Nuclear Acquisition: Stress Tc-99m/Stress Tc-99m 1 day Rest Isotope: Tc-99m Sestamibi. Dose: 10 Date: 05/14/2022 Stress Isotope: Tc-99m Sestamibi. Dose: 30 Date: 07/03/2022 Injection Time: 13:20 HR Resting HR Supine: 81 bpm Max Heart Rate (APMHR): 145 bpm Target HR (85% APMHR): 123 bpm Max HR Achieved: 94 bpm % of APMHR: 64 Recovery HR: 86 bpm BP Resting BP Supine: 126/66 mmHg Max BP: 126/66 mmHg Recovery BP: 126/60 mmHg ECG Resting ECG: Sinus Rhythm Ectopy: PVC's Stress ECG: Sinus Rhythm ST Change: No significant ST segment changes noted Arrhythmia: PVC's, PAC's Recovery ECG: Sinus Rhythm Recovery ST Change: No significant ST segment changes noted Recovery Arrhythmia: PVC's, PAC's Clinical Stress Symptoms: shortness of breath increased from baseline Rate Pressure Product: 77510 Stress ECG Conclusion 1. Resting electrocardiogram showed nondiagnostic ST-T abnormalities 2. Patient underwent pharmacologic stress with regadenoson 3. Peak heart rate achieved was 64% of predicted for age 4. Electrocardiographic portion of the test was nondiagnostic due to inadequate heart rate 5. See MPI report Stress Test Summary STAGE HR BP SpO2 Symptoms NOTES Supine 81 126/66 91% on @3L 1 min post Lexiscan injection 85 120/60 increased shortness of breath 3 min post Lexiscan injection 88 118/68 93% on 2L 6 min post Lexiscan injection 86 126/60 90% on 2L shortness of breath returned to baseline Laying lexiscan performed. Patient tolerated well, verbalizing increasing shortness of breath approxi mately 1 min post lexiscan injection that only lasted for about 3 minutes before patient reported her breathing was back to baseline. MPI Conclusion Stress images are technically very poor and suboptimal Nondiagnostic study Suggest alternative imaging if clinically indicated
[2022-07-03] MEDS: Regadenoson 0.4 MG/5 ML SYR IVP (13:47)
== END ==
PROVIDERS: PCP Family Medicine; Visit Provider Internal Medicine
DX: R07.9 Chest pain, unspecified (principal)
CPT/HCPCS: 93016; 93018; 78451; J2785

== ENCOUNTER 2022-08-11 13:47 | Inpatient (IN) | payer MEDICARE, MEDICAID, SELFPAY ==
[2022-08-11] VITALS (44 sets, daily range): BP systolic 138–152; BP diastolic 80; PULSE 75–115; RESP 8–31; TEMP 36.4–36.7; O2SAT 70–99
--- NOTE | 2022-08-11 13:45 | DI.RAD_ITS ---
Exam(s) XR PORTABLE CHEST AP EXAM: XR PORTABLE CHEST AP CLINICAL HISTORY: SOB TECHNIQUE: 2D digital imaging was performed. COMPARISON: CT CT CHEST/ABD/PEL WO from 05/08/2022 CR XR CHEST 2V PA LATERAL from 06/16/2022 FINDINGS: Exam is limited by patient positioning. The lungs are suboptimally inflated. There is a small to moderate right pleural effusion, similar to prior. No acute infiltrate is seen. There is no evidence of gross overt pulmonary edema.. Surgical clips noted right superior hilar reg ion. The heart is mildly enlarged. A port is noted over the left upper chest. IMPRESSION: Stable postsurgical changes of the right chest and stable right pleural effusion. No acute findings . DATA REPOSITORY: RADIATION DOSE DELIVERED:
--- NOTE | 2022-08-11 13:45 | RT.EKG_ITS ---
APPROVED REPORT Exam: Resting ECG Reason for Exam: SOB Patient Location: E HR:100 bpm ECG Measurements Heart Rate 100 AXIS RI 141 P 61 QRSd 81 QRS 70 QT 367 T 47 QTc 473 Conclusion Sinus tachycardia...rate> 99 no STEMI, non-diagnostic EKG I have reviewed and interpreted ECG and agree with software generated interpretation.
[2022-08-11] MEDS: Albuterol/Ipratropium 3 ML UPD VIAL UPD (14:21)
[2022-08-11] MEDS: methylPREDNISolone SUCC 125 MG VIAL 80 MG IVP (14:26)
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
[2022-08-11 14:35] LABS: BE (Venous) 10 mmol/L (-2-3); HCO3 (Venous) 35 mmol/L (23-28); O2 Sat (Venous) 83 %; TCO2 (Venous) 32 mmol/L (24-29); pCO2 (Venous) 60 mmHg (41-51); pH (Venous) 7.37 (7.31-7.41); pO2 (Venous) 52 mmHg
[2022-08-11 14:36] LABS: Abs Immature Grans 0.02 10^3/uL (0.0-0.06); Absolute Basophil Count 0.05 10^3/uL (0.0-0.2); Absolute Eosinophil Count 0.11 10^3/uL (0.0-0.7); Absolute Lymphocyte Count 0.67 10^3/uL (1.2-3.4); Absolute Monocyte Count 0.79 10^3/uL (0.1-0.8); Absolute Neutrophil Count 7.97 10^3/uL (1.2-6.7); Basophils % 0.5; Eosinophils % 1.1; HCT 36.5 % (36.0-46.0); HGB 11.2 g/dL (11.2-15.7); Immature Grans % 0.2; MCH 27.8 pg (27.0-33.0); MCHC 30.7 % (32.0-36.0); MCV 91 fL (80-95); MPV 11.5 fL (8.0-11.0); Monocytes % 8.2; Platelet Count 218 10^3/uL (130-400); RBC 4.03 10^6/uL (3.93-5.22); RDW 15.1 % (11.7-14.6); RDW-SD 50.5 fL; WBC 9.61 10^3/uL (4.4-10.8)
[2022-08-11 14:58] LABS: ALT 20 U/L (14-59); AST 14 U/L (15-37); Albumin 3.5 g/dL (3.4-5.0); Alkaline Phosphatase 116 U/L (46-116); Anion Gap 5.5 mmol/L (3-11); BUN 28 mg/dL (7-18); Bilirubin, Total 0.3 mg/dL (0.2-1.0); CO2 34.5 mmol/L (21.0-32.0); CREATININE 1.1 mg/dL (0.55-1.02); Calcium 9.7 mg/dL (8.5-10.1); Chloride 97 mmol/L (98-107); Glucose 137 mg/dL (74-106); Magnesium 1.7 mg/dL (1.8-2.4); NT-proBNP 986 pg/mL (<300); Potassium 3.9 mmol/L (3.5-5.1); Sodium 137 mmol/L (136-145); Total Protein 6.6 g/dL (6.4-8.2); Troponin I < 50 ng/L (<or=60)
--- NOTE | 2022-08-11 17:45 | DI.CT_ITS ---
Exam(s) CT CHEST PE CTA EXAM: CT CHEST PE CTA CLINICAL HISTORY: elevated troponin, shortness of breath. TECHNIQUE: Imaging Protocol: CT angiography of the chest was performed using pulmonary embolus barbara col. Multi planar reconstructions were performed. CONTRAST MATERIAL: Intravenous: Omnipaque 350 Contrast volume: 100 cc COMPARISON: CT CT CHEST PE CTA from 04/22/2022 CT,NM NM MPI REST OR STRESS ONLY from 05/13/2022 CR XR PORTABLE CHEST AP from 08/11/2022 FINDINGS: CHEST: PULMONARY ARTERIES: There are no intraluminal filling defects to suggest acute pulmonary emboli. LUNGS: There is a peripherally calcified loculated right pleural effusion again noted, unchanged.. P leural based spiculated nodule in the medial aspect of the right upper lobe exhibits minimal if any s ignificant change from 04/22/2022. Increased markings in the lower right lung are unchanged. In the opposite-left lung there are areas of ground-glass infiltrate in the upper lobe which appear stable as well as some infiltrate in the left lower lobe also appearing stable. No new left lung findings a nd no pleural effusion on the left side. No new findings in trachea and mainstem bronchi. Distal ti p of left subclavian Port-A-Cath is in the lower SVC. MEDIASTINUM: There is no hilar nor mediastinal adenopathy. Prominent nodule in the right thyroid lobe is again noted. CARDIAC: Heart size is upper normal. There is thin pericardial effusion anteriorly which exhibits ma ximum thickness of 4 millimeters. The caliber of the thoracic aorta is normal. No evidence of aortic dissection. PARTIALLY VISUALIZED UPPERMOST ABDOMEN: No obvious findings OSSEOUS: There are postop changes in right ribs again noted.Wedge compression of a midthoracic verteb ral body is unchanged.. IMPRESSION: 1. No evidence of acute pulmonary emboli. No evidence of pulmonary infarction 2. Unchanged loculated right pleural effusion. Also stable appearance of pleural based spiculated no dule in the medial aspect of the right upper lobe. This nevertheless requires close follow-up given its appearance. 3. Other lung findings are also stable. No new intrathoracic adenopathy. 4. Small pericardial effusion. 5. Right thyroid logical again noted. RADIATION DOSE DELIVERED: 397.66mGy.cm Total DLP DATA REPOSITORY: All CT scans at this facility are submitted to the National Radiology Data Registry (NRDR) Dose Index Registry (DIR) with the [employer] (ACR). RADIATION OPTIMIZATION: All CT scans at this facility use at least one of these dose optimization te chniques: automated exposure control; mA and/or kV adjustment per patient size (includes targeted exa ms where dose is matched to clinical indication); or iterative reconstruction.
[2022-08-11 17:51] LABS: Troponin I 190 ng/L (<or=60)
[2022-08-11 18:09] LABS: COVID-19 PCR Negative (Negative); Influenza A PCR Negative (Negative); Influenza B PCR Negative (Negative); RSV PCR Negative (Negative)
[2022-08-11 18:10] LABS: Source Nasopharynx
[2022-08-11] MEDS: Normal Saline - Diluent 50 ML VIAL IJ (18:38)
[2022-08-11] MEDS: Omnipaque 350 MG/ML 100 ML BTL IJ (18:39)
[2022-08-11] MEDS: Normal Saline Flush 10 ML SYR IVP (18:43)
--- NOTE | 2022-08-11 18:49 | DI.VRAD_ITS ---
PROCEDURE INFORMATION: Exam: CTA Chest With Contrast Exam date and time: 08/11/2022 6:28 PM Age: 76 years old Clinical indication: Other: Elevated troponin, SOB TECHNIQUE: Imaging protocol: Computed tomographic angiography of the chest with contrast. 3D rendering (Not supervised by radiologist): MIP and/or 3D reconstructed images were created by the technologist. Radiation optimization: All CT scans at this facility use at least one of these dose optimization techniques: automated exposure control; mA and/or kV adjustment per patient size (includes targeted exams where dose is matched to clinical indication); or iterative reconstruction. Contrast material: OMNIPAQUE 350; Contrast volume: 100 ml; Contrast route: INTRAVENOUS (IV); COMPARISON: CT CHEST PE CTA 04/22/2022 2:52 PM FINDINGS: Pulmonary arteries: No pulmonary emboli. Severely enlarged main pulmonary arteries Aorta: No aortic aneurysm. No aortic dissection. Lungs: Spiculated nodules in the upper lobes and mild emphysema, grossly stable. No consolidation. Pleural spaces: No pneumothorax. Chronic right pleural effusion, grossly stable. Heart: Mild cardiomegaly. No pericardial effusion. Lymph nodes: Prominent hilar lymph nodes. Bones/joints: Grossly stable. No acute fracture. Soft tissues: 2.2 cm right-sided thyroid hypodensity measuring fluid grossly stable IMPRESSION: No pulmonary emboli observed Pulmonary arterial hypertension suspected Spiculated nodules in the upper lobes, grossly stable Grossly stable chronic appearing right pleural effusion Dictated and Authenticated by: Maksim Luna MD. Ordering:GREG Sterling MD
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
[2022-08-11] MEDS: Metoprolol CR 25 MG TABCR PO (22:22)
[2022-08-11] MEDS: methylPREDNISolone SUCC 40 MG VIAL IVP (22:24)
[2022-08-12] VITALS (18 sets, daily range): BP systolic 122–136; BP diastolic 67–73; PULSE 66–89; RESP 4–22; TEMP 36.5–37; O2SAT 93–98
[2022-08-12] MEDS: Normal Saline Flush 10 ML SYR IVP ×5 (00:26→19:34)
[2022-08-12] MEDS: Albuterol/Ipratropium 3 ML UPD VIAL UPD ×4 (00:26→17:48)
[2022-08-12] MEDS: Melatonin 3 MG TAB 6 MG PO (00:27)
[2022-08-12] MEDS: Ondansetron O.D.T. 4 MG TABEF 8 MG PO (00:34)
[2022-08-12] MEDS: Magnesium Oxide 400 MG TAB PO (07:56)
[2022-08-12] MEDS: Spironolactone 25 MG TAB PO (07:56)
[2022-08-12] MEDS: Torsemide 20 MG TAB 40 MG PO (07:56)
[2022-08-12] MEDS: guaiFENesin 600 MG TABCR 1200 MG PO ×2 (07:57→19:33)
[2022-08-12] MEDS: Cyanocobalamin 500 MCG TAB 1000 MCG PO ×2 (07:57→08:16)
[2022-08-12] MEDS: Sucralfate 1 GM TAB PO ×2 (07:57→15:47)
[2022-08-12] MEDS: methylPREDNISolone SUCC 40 MG VIAL IVP ×2 (08:00→14:47)
[2022-08-12] MEDS: DULoxetine 30 MG CAP 60 MG PO (09:33)
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
[2022-08-12] MEDS: Fluconazole 150 MG TAB PO (12:01)
[2022-08-12 12:10] LABS: Abs Immature Grans 0.03 10^3/uL (0.0-0.06); Absolute Basophil Count 0.01 10^3/uL (0.0-0.2); Absolute Lymphocyte Count 0.35 10^3/uL (1.2-3.4); Absolute Monocyte Count 0.48 10^3/uL (0.1-0.8); Absolute Neutrophil Count 7.67 10^3/uL (1.2-6.7); Basophils % 0.1; HCT 37.6 % (36.0-46.0); HGB 11.5 g/dL (11.2-15.7); Immature Grans % 0.4; Lymphocytes % 4.1; MCH 27.7 pg (27.0-33.0); MCHC 30.6 % (32.0-36.0); MCV 91 fL (80-95); MPV 11.7 fL (8.0-11.0); Monocytes % 5.6; Neutrophils % 89.8; Nucleated RBC 0.2 % (0.0-0.3); Platelet Count 238 10^3/uL (130-400); RBC 4.15 10^6/uL (3.93-5.22); RDW 15.1 % (11.7-14.6); RDW-SD 50.3 fL; WBC 8.54 10^3/uL (4.4-10.8)
[2022-08-12 12:48] LABS: Anion Gap 2.7 mmol/L (3-11); BUN 31 mg/dL (7-18); CO2 36.3 mmol/L (21.0-32.0); CREATININE 0.9 mg/dL (0.55-1.02); Calcium 10.7 mg/dL (8.5-10.1); Chloride 95 mmol/L (98-107); Estimated GFR 66.67 (mL/min/1.73m2); Glucose 112 mg/dL (74-106); Potassium 4.6 mmol/L (3.5-5.1); Sodium 134 mmol/L (136-145)
[2022-08-12 12:54] LABS: Troponin I 456 ng/L (<or=60)
[2022-08-12 12:59] LABS: Procalcitonin < 0.1 ng/mL
--- NOTE | 2022-08-12 15:22 | NUR.NOTE ---
Nursing Note: I have reviewed the documentation of Ysabel Patton LPN.
--- NOTE | 2022-08-12 17:45 | RT.EKG_ITS ---
APPROVED REPORT Exam: Resting ECG Reason for Exam: elevated troponin Patient Location: I HR:90 bpm ECG Measurements Heart Rate 90 AXIS GA 144 P 61 QRSd 81 QRS 66 QT 452 T 203 QTc 553 Conclusion Sinus rhythm...normal P axis, V-rate 50- 99 Atrial premature complex...SV complex w/ short R-R interval Abnrm T, consider ischemia, anterolateral lds...T <-0.20mV, I aVL V2-V6 Min[address] elevation, anterior leads...ST >0.10mV, V1-V4 Prolonged QT interval...QTc >500mS
--- NOTE | 2022-08-12 17:50 | W.PM.PROGNOT ---
Date of Service Date of service: 08/12/22 Time of Service: 17:50 Assessment and Plan Assessment and plan (1) Acute on chronic respiratory failure with hypoxia and hypercapnia: Status: Acute Assessment and plan: Due to COPD exacerbation. Transition to PO prednisone. Continue scheduled + prn nebs. Procalcitonin negative - no role for abx. (2) Acute exacerbation of chronic obstructive pulmonary disease (COPD): Status: Acute Assessment and plan: As above (3) Elevated troponin I level: Status: Acute Assessment and plan: In setting of an acute exacerbation of COPD. Had an echo w/ preserved EF and no wall motion abnormalities, a negative rest MPI and a poor quality stress MPI in the last 4 months. EKG does show dynamic changes since arrival to the hospital, which are concerning. However, the patient is asymptomatic (and has been) and has a h/o GI bleeding, making anticoagulation risky. She is already on beta blockers, spironolactone; not on an darryl-i. She is DNR/DNI and is previously known to hospice. Will give aspirin and monitor on tele. Consult palliative care. (4) Vaginitis and vulvovaginitis: Status: Acute Assessment and plan: Rx fluconazole and miconazole, as the patient would like something topical. She would like to see SALES ENGINEERING MANAGER - consult placed. (5) DVT prophylaxis: Status: Acute Assessment and plan: SCDs due to h/o GI bleeding (6) Discharge planning issues: Status: Acute Assessment and plan: DNR/DNI Palliative care and PT consulted. Subjective Subjective Interval history since last seen: Ms Arguelles states she is feeling better. Breathing is better. No CP, dizziness; states she has nausea that comes and goes at baseline and it does not affect her appetite. Her biggest complaint is vaginal itching for which she was going to see SALES ENGINEERING MANAGER yesterday when she ended up in the ED. Exam Narrative Exam Narrative: General: Pleasant elderly female, A&Ox3, NAD HEENT: EOMI, MMM Heart: RRR, + RERE Lungs: faint expiratory rhonchi B Abdomen: soft, nontender, nondistended Extremities: trace edema BLEs Objective Last Vital Signs Temp 36.8 C 08/12/22 15:33 Pulse 82 08/12/22 15:33 Resp 20 08/12/22 15:33 BP 122/67 08/12/22 15:33 Pulse Ox 93 08/12/22 15:33 Laboratory Results - last 24 hr 08/11/22 08/11/22 08/12/22 16:10 17:20 09:43 WBC RBC Hgb Hct MCV MCH MCHC RDW Plt Count MPV Immature Gran % Neutrophils % Lymphocytes % Monocytes % Eosinophils % Basophils % Nucleated RBC % Absolute Neutrophils Absolute Lymphocytes Absolute Monocytes Absolute Eosinophils Absolute Basophils Sodium Potassium Chloride Carbon Dioxide Anion Gap BUN Creatinine Est GFR (CKD-EPI 2020) Glucose Calcium Magnesium Cancelled Troponin I 190 H* Procalcitonin COVID-19 Source Nasopharynx SARS-CoV-2 (PCR) Negative Influenza Type A (PCR) Negative Influenza Type B (PCR) Negative RSV (PCR) Negative 08/12/22 08/12/22 08/12/22 12:00 12:00 12:00 WBC 8.54 RBC 4.15 Hgb 11.5 Hct 37.6 MCV 91 MCH 27.7 MCHC 30.6 L RDW 15.1 H Plt Count 238 MPV 11.7 H Immature Gran % 0.4 Neutrophils % 89.8 Lymphocytes % 4.1 Monocytes % 5.6 Eosinophils % 0.0 Basophils % 0.1 Nucleated RBC % 0.2 Absolute Neutrophils 7.67 H Absolute Lymphocytes 0.35 L Absolute Monocytes 0.48 Absolute Eosinophils 0.00 Absolute Basophils 0.01 Sodium 134 L Potassium 4.6 Chloride 95 L Carbon Dioxide 36.3 H Anion Gap 2.7 L BUN 31 H Creatinine 0.9 Est GFR (CKD-EPI 2020) 66.67 Glucose 112 H Calcium 10.7 H Magnesium 2.0 Troponin I 456 H* Procalcitonin < 0.1 COVID-19 Source SARS-CoV-2 (PCR) Influenza Type A (PCR) Influenza Type B (PCR) RSV (PCR)
[2022-08-12] MEDS: Aspirin E.C. 325 MG TABEC PO (18:05)
--- NOTE | 2022-08-12 18:15 | RT.EKG_ITS ---
APPROVED REPORT Exam: Resting ECG Reason for Exam: REPEAT EKG FOR LEAD PLACEMENT Patient Location: I HR:88 bpm ECG Measurements Heart Rate 88 AXIS AR 146 P 57 QRSd 84 QRS 68 QT 466 T 201 QTc 564 Conclusion Sinus rhythm...normal P axis, V-rate 50- 99 Atrial premature complex...SV complex w/ short R-R interval Abnrm T, consider ischemia, anterolateral lds...T <-0.20mV, I aVL V2-V6 Prolonged QT interval...QTc >500mS
[2022-08-12 19:17] LABS: Troponin I 295 ng/L (<or=60)
[2022-08-12] MEDS: Atorvastatin 40 MG TAB PO (19:34)
[2022-08-12] MEDS: Metoprolol CR 25 MG TABCR PO (22:08)
[2022-08-13] VITALS (15 sets, daily range): BP systolic 136–156; BP diastolic 47–75; PULSE 55–102; RESP 1–24; TEMP 36.4–37; O2SAT 89–99
[2022-08-13] MEDS: Albuterol/Ipratropium 3 ML UPD VIAL UPD ×4 (06:39→23:23)
[2022-08-13] MEDS: Sucralfate 1 GM TAB PO ×2 (07:16→15:33)
--- NOTE | 2022-08-13 07:30 | RT.EKG_ITS ---
APPROVED REPORT Exam: Resting ECG Reason for Exam: elevated troponin Patient Location: I HR:79 bpm ECG Measurements Heart Rate 79 AXIS SD 154 P 48 QRSd 81 QRS 57 QT 346 T -78 QTc 397 Conclusion Sinus rhythm...normal P axis, V-rate 50- 99 Borderline low voltage, extremity leads...all extremity leads <0.6mV Minor diffuse nondiagnostic ST-T abnormalities
[2022-08-13] MEDS: Normal Saline Flush 10 ML SYR IVP ×2 (07:44→20:35)
[2022-08-13] MEDS: Torsemide 20 MG TAB 40 MG PO (07:58)
[2022-08-13] MEDS: Spironolactone 25 MG TAB PO (07:59)
[2022-08-13] MEDS: Aspirin E.C. 81 MG TABEC PO (07:59)
[2022-08-13] MEDS: guaiFENesin 600 MG TABCR 1200 MG PO ×2 (07:59→20:33)
[2022-08-13] MEDS: DULoxetine 30 MG CAP 60 MG PO (07:59)
[2022-08-13] MEDS: Magnesium Oxide 400 MG TAB PO (07:59)
[2022-08-13] MEDS: predniSONE 20 MG TAB 40 MG PO (07:59)
[2022-08-13] MEDS: Cyanocobalamin 500 MCG TAB 1000 MCG PO (07:59)
[2022-08-13 08:02] LABS: Abs Immature Grans 0.03 10^3/uL (0.0-0.06); Absolute Lymphocyte Count 0.59 10^3/uL (1.2-3.4); Absolute Monocyte Count 0.87 10^3/uL (0.1-0.8); Absolute Neutrophil Count 8.52 10^3/uL (1.2-6.7); HCT 35.7 % (36.0-46.0); HGB 11.2 g/dL (11.2-15.7); Immature Grans % 0.3; Lymphocytes % 5.9; MCH 28.2 pg (27.0-33.0); MCHC 31.4 % (32.0-36.0); MCV 90 fL (80-95); MPV 11.6 fL (8.0-11.0); Monocytes % 8.7; Neutrophils % 85.1; Platelet Count 237 10^3/uL (130-400); RBC 3.97 10^6/uL (3.93-5.22); RDW-SD 49.9 fL; WBC 10.01 10^3/uL (4.4-10.8)
[2022-08-13 08:14] LABS: Anion Gap 3.9 mmol/L (3-11); BUN 41 mg/dL (7-18); CO2 35.1 mmol/L (21.0-32.0); CREATININE 1.1 mg/dL (0.55-1.02); Calcium 10.6 mg/dL (8.5-10.1); Chloride 97 mmol/L (98-107); Glucose 125 mg/dL (74-106); Magnesium 2.2 mg/dL (1.8-2.4); Potassium 4.5 mmol/L (3.5-5.1); Sodium 136 mmol/L (136-145)
--- NOTE | 2022-08-13 09:39 | PDOC.CMPRO ---
- If Service Date Differs Date of service: 08/13/22 Time of Service: 09:39 Care Management Progress Note S/O:Madelin was sitting up on the side of the bed when CM met with her. When asked how she was feeling, she responded better, but not back to normal yet. Madelin is scheduled to have a repeat Echocardiogram today and may be ready for discharge as soon as tomorrow, per provider. On her last admission Madelin had a Palliative care consult and there was some discussion about hospice. Madelin indicated that she wanted hospice type care at home with treatment focused on comfort and quality of life. She is not eligible for hospice at this time as she does not have caregiver support. She did indicate that she would be willing to go to a SNF for this care when her care needs increase. A: Madelin is a 76 year old woman admitted on 08/11/22 with COPD P: Anticipate Madelin will return home with a resumption of services including [facility] HH and [facility] SN and PT. She will follow up with her community providers and plan of care and transport with her daughter. CM will continue to offer support to Madelin and her discharge needs.
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
[2022-08-13] MEDS: Acetaminophen 325 MG TAB 650 MG PO ×2 (15:33→22:45)
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
--- NOTE | 2022-08-13 16:40 | CHAPLAIN ---
Carly was up in the chair when I visited. She was very pleasant and easily engaged in a conversation. She told me about her apartment in the [facility] [address], which she likes very much. She looks down on [address] and all the activity there. She talked about how pretty the view is when all the holiday lights are up. Madelin said she's been in touch with her daughters, but they haven't visited. One doesn't drive in bad weather, so will likely not visit today.
--- NOTE | 2022-08-13 18:26 | W.PM.PROGNOT ---
Date of Service Date of service: 08/13/22 Time of Service: 18:26 Assessment and Plan Assessment and plan (1) Acute on chronic respiratory failure with hypoxia and hypercapnia: Status: Acute Assessment and plan: Due to COPD exacerbation. Continue PO prednisone, scheduled + prn nebs. Procalcitonin negative - no role for abx. (2) Acute exacerbation of chronic obstructive pulmonary disease (COPD): Status: Acute Assessment and plan: As above (3) Elevated troponin I level: Status: Acute Assessment and plan: In setting of an acute exacerbation of COPD. Suspect this is a type 2 NSTEMI, but given very real EKG changes, likely does have underlying coronary disease. Had an echo w/ preserved EF and no wall motion abnormalities, a negative rest MPI and a poor quality stress MPI in the last 4 months. EKG does show dynamic changes since arrival to the hospital, which are concerning. R axillary pain may have been her anginal equivalent. h/o GI bleeding, making anticoagulation risky. Discussed with the patient: she is interested in treating this with medications only and is open to just sticking to aspirin. She is not intersted in a transfer to a tertiary care facility. She is already on beta blockers, spironolactone; not on an darryl-i. She is DNR/DNI and is previously known to hospice. Continue aspirin and monitor on tele. (4) Vaginitis and vulvovaginitis: Status: Acute Assessment and plan: Rx fluconazole and miconazole, as the patient would like something topical. Evaluated by NIGHT COORDINATOR. If no improvement within 48 hrs, will rx combo clotrimazole/betamethasone. (5) DVT prophylaxis: Status: Acute Assessment and plan: SCDs due to h/o GI bleeding (6) Discharge planning issues: Status: Acute Assessment and plan: DNR/DNI Palliative care and PT consulted. Anticipate discharge home tomorrow Subjective Subjective Interval history since last seen: Ms Arguelles is feeling better. She slept on BiPAP last night. She denies dizziness, states she did, in fact, have 2 episodes of pain in her right axilla yesterday. We discussed how that may have been her equivalent of chest pain. Shortness of breath is better. Endorses her chronic nausea. Did well with her oxygen walk on 2L. Not interested in having further cardiac workup - would prefer to just treat her NSTEMI with medications. We discussed how she has a h/o GI bleeding and that we have put her on aspirin, but that we would not put her on other medications that would make her bleed. She agrees with this. Exam Narrative Exam Narrative: General: Pleasant elderly female, A&Ox3, NAD HEENT: EOMI, MMM Heart: RRR, + RERE Lungs: minimal expiratory rhonchi B Abdomen: soft, nontender, nondistended Extremities: trace edema BLEs, tibia TTP Objective Last Vital Signs Temp 37 C 08/13/22 15:20 Pulse 86 08/13/22 15:20 Resp 19 08/13/22 15:20 BP 138/75 08/13/22 15:20 Pulse Ox 93 08/13/22 15:20 Laboratory Results - last 24 hr 08/12/22 08/13/22 08/13/22 18:43 07:50 07:50 WBC 10.01 RBC 3.97 Hgb 11.2 Hct 35.7 L MCV 90 MCH 28.2 MCHC 31.4 L RDW 15.0 H Plt Count 237 MPV 11.6 H Immature Gran % 0.3 Neutrophils % 85.1 Lymphocytes % 5.9 Monocytes % 8.7 Eosinophils % 0.0 Basophils % 0.0 Nucleated RBC % 0.0 Absolute Neutrophils 8.52 H Absolute Lymphocytes 0.59 L Absolute Monocytes 0.87 H Absolute Eosinophils 0.00 Absolute Basophils 0.00 Sodium 136 Potassium 4.5 Chloride 97 L Carbon Dioxide 35.1 H Anion Gap 3.9 BUN 41 H Creatinine 1.1 H Est GFR (CKD-EPI 2020) 52.40 Glucose 125 H Calcium 10.6 H Magnesium 2.2 Troponin I 295 H*
[2022-08-13] MEDS: Atorvastatin 40 MG TAB PO (20:34)
[2022-08-13] MEDS: Melatonin 3 MG TAB 6 MG PO (22:40)
[2022-08-13] MEDS: Metoprolol CR 25 MG TABCR PO (22:40)
[2022-08-14] VITALS (7 sets, daily range): BP systolic 128–131; BP diastolic 56–81; PULSE 53–86; RESP 1–20; TEMP 35.8–36.9; O2SAT 95–97
[2022-08-14] MEDS: Ondansetron O.D.T. 4 MG TABEF 8 MG PO (03:00)
[2022-08-14] MEDS: Albuterol/Ipratropium 3 ML UPD VIAL UPD ×2 (06:16→11:51)
[2022-08-14] MEDS: Normal Saline Flush 10 ML SYR IVP ×2 (06:48→12:20)
[2022-08-14] MEDS: Sucralfate 1 GM TAB PO (06:48)
[2022-08-14 06:55] LABS: Abs Immature Grans 0.02 10^3/uL (0.0-0.06); Absolute Basophil Count 0.02 10^3/uL (0.0-0.2); Absolute Eosinophil Count 0.08 10^3/uL (0.0-0.7); Absolute Lymphocyte Count 1.14 10^3/uL (1.2-3.4); Absolute Monocyte Count 0.98 10^3/uL (0.1-0.8); Absolute Neutrophil Count 5.95 10^3/uL (1.2-6.7); Basophils % 0.2; HCT 36.8 % (36.0-46.0); HGB 11.5 g/dL (11.2-15.7); Immature Grans % 0.2; Lymphocytes % 13.9; MCHC 31.3 % (32.0-36.0); MCV 90 fL (80-95); MPV 11.5 fL (8.0-11.0); Neutrophils % 72.7; Platelet Count 230 10^3/uL (130-400); RDW 15.1 % (11.7-14.6); RDW-SD 49.7 fL; WBC 8.19 10^3/uL (4.4-10.8)
[2022-08-14 07:08] LABS: Anion Gap 2.4 mmol/L (3-11); BUN 45 mg/dL (7-18); CO2 35.6 mmol/L (21.0-32.0); CREATININE 1.2 mg/dL (0.55-1.02); Calcium 10.2 mg/dL (8.5-10.1); Chloride 96 mmol/L (98-107); Estimated GFR 47.21 (mL/min/1.73m2); Glucose 114 mg/dL (74-106); Potassium 4.1 mmol/L (3.5-5.1); Sodium 134 mmol/L (136-145)
[2022-08-14] MEDS: Torsemide 20 MG TAB 40 MG PO (08:27)
[2022-08-14] MEDS: DULoxetine 30 MG CAP 60 MG PO (08:27)
[2022-08-14] MEDS: Spironolactone 25 MG TAB PO (08:28)
[2022-08-14] MEDS: Aspirin E.C. 81 MG TABEC PO (08:28)
[2022-08-14] MEDS: Magnesium Oxide 400 MG TAB PO (08:28)
[2022-08-14] MEDS: predniSONE 20 MG TAB 40 MG PO (08:28)
[2022-08-14] MEDS: guaiFENesin 600 MG TABCR 1200 MG PO (08:28)
[2022-08-14] MEDS: Cyanocobalamin 500 MCG TAB 1000 MCG PO (08:29)
--- NOTE | 2022-08-14 10:50 | CMDISCH_ITS ---
- If Service Date Differs Date of service: 08/14/22 Time of Service: 10:50 LACE Index Scoring Tool - Questions: Length of Stay (in days): 3 Acuity (Admit via E.D.?): Yes Comorbidities: Chronic Pulmonary Disease, Any Tumor, Metastatic Solid Tumor E.D. Visits: 7 - Answers: Total Score: 15 Risk of Readmission: High Risk Care Management Discharge Reason for Hospitalization: COPD Exacerbation Discharge Plan: Madelin will return home with a resumption of services including [facility] and [facility] SN and PT. She will follow up with her community providers and plan of care and transport with her daughter. Patient/Family Education Needs: Review discharge instructions, activity, limitations, medications, follow up plan and discuss Ask Me Three
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
--- NOTE | 2022-08-14 11:02 | PT.INTREAT ---
Date of service: 08/14/22 Time of Service: 09:25 PT Notes Visit Reasons: COPD Inpatient Physical Therapy Treatment Note [facility] Date: 08/14/2022 PRECAUTIONS: Activity as tolerated SUBJECTIVE: Madelin is pleasant and agreeable to participating in PT. She reports that she is feeling much better today and is hoping to go home later today. OBJECTIVE: PAIN: No c/o pain BED MOBILITY/TRANSFERS Sit-stand: I Stand-sit: I GAIT Assistive Device: 4WW Weight bearing: Full Assist: S Distance: 125' + 75' Deviation: SOB, 2L O2, seated rest 4WW MECHANICS: Patient demonstrates safe and appropriate 4WW management with gait and seated rest ASSESSMENT: Patient tolerated session without complaint. She was able to tolerate a progression in gait distance with 4WW support and supervision, requiring seated rest x1, demonstrating safe use of 4WW. PLAN: Patient to discharge to home later today, per provider. Recommend resumption of HH PT upone discharge. TREATMENT CODE/TIME: 15 minutes; 55248 (09:25)
[2022-08-14] MEDS: Heparin 500 UNITS/5 ML SYRINGE IVP (12:21)
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
== END 2022-08-14 12:43 | disposition home health service (06) | DRG 190 ==
LOC: ER 17:05 → MS 20:56
PROVIDERS: Internal Medicine; Physician Assistant; Admitting Provider General Practice; Emergency Provider Physician Assistant; PCP Family Medicine; Visit Provider General Practice
DX: J44.1 Chronic obstructive pulmonary disease with (acute) exacerbation (principal); J96.21 Acute and chronic respiratory failure with hypoxia; J96.22 Acute and chronic respiratory failure with hypercapnia; C34.32 Malignant neoplasm of lower lobe, left bronchus or lung; C78.01 Secondary malignant neoplasm of right lung; R74.8 Abnormal levels of other serum enzymes; Z99.81 Dependence on supplemental oxygen; Z66 Do not resuscitate; D50.9 Iron deficiency anemia, unspecified; K59.00 Constipation, unspecified; F41.9 Anxiety disorder, unspecified; Z85.3 Personal history of malignant neoplasm of breast; G89.29 Other chronic pain; F32.A Depression, unspecified; K21.9 Gastro-esophageal reflux disease without esophagitis; E78.5 Hyperlipidemia, unspecified; I10 Essential (primary) hypertension; G43.909 Migraine, unspecified, not intractable, without status migrainosus; G31.84 Mild cognitive impairment of uncertain or unknown etiology; F17.210 Nicotine dependence, cigarettes, uncomplicated; N76.0 Acute vaginitis; N81.0 Urethrocele; N39.3 Stress incontinence (female) (male)
CPT/HCPCS: 71275; 80048; 80053; 82805; 84145; 87637; 93005; 94618; 96374; 97162; 97530; 99285; 71045; 83735; 83880; 84484; 85025; 93010; 93306; 94640; 94660; 99219; 99226; 99233; 99239; G0378; J2930; J3490; J7512; J7620

== ENCOUNTER 2022-09-06 10:58 | Inpatient (IN) | payer MEDICARE, MEDICAID, SELFPAY ==
[2022-09-06] VITALS (52 sets, daily range): BP systolic 117–167; BP diastolic 47–82; PULSE 82–101; RESP 1–24; TEMP 37–37.1; O2SAT 65–100
--- NOTE | 2022-09-06 11:00 | RT.EKG_ITS ---
APPROVED REPORT Exam: Resting ECG Reason for Exam: SOB, Vomiting Patient Location: E HR:87 bpm ECG Measurements Heart Rate 87 AXIS VA 149 P 40 QRSd 78 QRS 62 QT 347 T 108 QTc 418 Conclusion Sinus rhythm...normal P axis, V-rate 60- 99 Nonspecific T abnormalities, lateral leads...T <-0.10mV, I aVL V5 V6
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
--- NOTE | 2022-09-06 11:30 | DI.CT_ITS ---
Exam(s) CT CHEST/ABD/PEL WO EXAM: CT CHEST/ABD/PEL WO CLINICAL HISTORY: SOB, RUQ abd pain, Vomiting, Hx COPD TECHNIQUE: Imaging Protocol: Axial computed tomography images with coronal and sagittal reformatted images were created and reviewed COMPARISON: CT CT CHEST PE CTA from 08/11/2022 FINDINGS: The examination is limited due to patient motion artifact. CHEST: Tracheobronchial tree: Patent where visualized. Pulmonary parenchyma: There is a stable spiculated nodule in the right upper lobe. No focal consolid ating infiltrates are present. There is a stable small opacity in the left lung apex. Mediastinum and Iesha: No dominant adenopathy or fluid collection. The esophagus is unremarkable. Thyroid gland: Unchanged. Pleura: There is a stable loculated right pleural effusion. No left pleural effusion. No pneumothor ax. Heart: The heart is not dilated. Coronary artery calcifications are present. No pericardial effusion . Aorta: Thoracic aorta non-dilated. Atherosclerosis is present. Lymph nodes: Within normal limits. Bones:Within normal limits for the patient's age. Old rib fractures. Old T8 compression fracture de formity. Soft tissues: The indwelling central venous catheter is in good position. ABDOMEN: Liver: Normal density. No measurable mass. Gallbladder and Biliary Tract: Status post cholecystectomy. Pancreas: There is atrophy of the pancreas. Spleen: Normal. Adrenals: No masses seen. Kidneys: Normal size, contour and axis. No radiodense stones or obstructive uropathy. No masses seen. Abdominal Aorta: Abdominal portion non-dilated. Extensive atherosclerosis is present. Bowel: No obstruction or bowel wall thickening. No evidence of appendicitis. Colonic diverticulosis is present but no evidence of acute diverticulitis. Peritoneal Cavity: No ascites, collection or mesenteric inflammatory response. No free air. Lymph Nodes: Within normal limits. Bones: Within normal limits for the patient's age. Soft Tissues: Unremarkable. PELVIS: Bladder: Symmetric distention, no gross wall thickening. Reproductive Organs: Status post hysterectomy. Lymph Nodes: Within normal limits. Bones: Within normal limits for the patient's age. IMPRESSION: 1. Stable appearance of the chest. 2. No acute pulmonary process. 3. No acute abdominal pelvic process. RADIATION DOSE DELIVERED: 1,223.7mGy.cm Total DLP 1,223.7mGy.cm Total DLP DATA REPOSITORY: All CT scans at this facility are submitted to the National Radiology Data Registry (NRDR) Dose Index Registry (DIR) with the [employer] [place] [employer] (ACR). RADIATION OPTIMIZATION: All CT scans at this facility use at least one of these dose optimization te chniques: automated exposure control; mA and/or kV adjustment per patient size (includes targeted exa ms where dose is matched to clinical indication); or iterative reconstruction.
[2022-09-06 11:43] LABS: Abs Immature Grans 0.04 10^3/uL (0.0-0.06); Absolute Basophil Count 0.03 10^3/uL (0.0-0.2); Absolute Eosinophil Count 0.02 10^3/uL (0.0-0.7); Absolute Monocyte Count 0.81 10^3/uL (0.1-0.8); Basophils % 0.2; Eosinophils % 0.1; HCT 38.1 % (36.0-46.0); HGB 11.5 g/dL (11.2-15.7); Immature Grans % 0.3; Lymphocytes % 1.3; MCH 27.8 pg (27.0-33.0); MCHC 30.2 % (32.0-36.0); MCV 92 fL (80-95); MPV 10.9 fL (8.0-11.0); Monocytes % 5.1; Platelet Count 222 10^3/uL (130-400); RBC 4.13 10^6/uL (3.93-5.22); RDW 14.9 % (11.7-14.6); RDW-SD 50.6 fL; WBC 15.89 10^3/uL (4.4-10.8)
[2022-09-06 11:44] LABS: Absolute Lymphocyte Count 0.21 10^3/uL (1.2-3.4); Absolute Neutrophil Count 14.78 10^3/uL (1.2-6.7)
[2022-09-06] MEDS: Ondansetron 4 MG/2 ML VIAL IVP (11:44)
[2022-09-06 12:04] LABS: ALT 24 U/L (14-59); AST 14 U/L (15-37); Albumin 3.8 g/dL (3.4-5.0); Alkaline Phosphatase 105 U/L (46-116); Anion Gap 1.9 mmol/L (3-11); BUN 34 mg/dL (7-18); Bilirubin, Total 0.6 mg/dL (0.2-1.0); CO2 37.1 mmol/L (21.0-32.0); Calcium 10.3 mg/dL (8.5-10.1); Chloride 96 mmol/L (98-107); Estimated GFR 58.75 (mL/min/1.73m2); Glucose 144 mg/dL (74-106); Lipase 27 U/L (73-393); NT-proBNP 947 pg/mL (<300); Potassium 4.4 mmol/L (3.5-5.1); Sodium 135 mmol/L (136-145); Total Protein 6.8 g/dL (6.4-8.2); Troponin I < 50 ng/L (<or=60)
[2022-09-06 12:56] LABS: BE (Venous) 11 mmol/L (-2-3); HCO3 (Venous) 37 mmol/L (23-28); O2 Sat (Venous) 89 %; TCO2 (Venous) 35 mmol/L (24-29); pH (Venous) 7.31 (7.31-7.41); pO2 (Venous) 60 mmHg
[2022-09-06 12:57] LABS: pCO2 (Venous) 74 mmHg (41-51)
[2022-09-06 13:42] LABS: Influenza A PCR Negative (Negative); Influenza B PCR Negative (Negative); RSV PCR Negative (Negative)
[2022-09-06 13:44] LABS: Source Nasopharynx
--- NOTE | 2022-09-06 13:44 | DI.VRAD_ITS ---
PROCEDURE INFORMATION: Exam: CT Chest Without Contrast; Diagnostic Exam date and time: 09/06/2022 1:06 PM Age: 76 years old Clinical indication: Other: SOB, ruq abd pain, vomiting, HX copd; Prior surgery; Surgery date: 6+ months; Surgery type: Bilateral masectomy, hysterectomy; Patient HX: Breast CA, copd TECHNIQUE: Imaging protocol: Diagnostic computed tomography of the chest without contrast. COMPARISON: CT CHEST/ABD/PEL WO 05/08/2022 3:15 PM FINDINGS: Tubes, catheters and devices: Left central venous catheter with tip in the SVC. Lungs: Stable small pleural effusion which appears partially loculated the right lung base medially. The loculated portion measures approximately 4.4 cm in greatest dimension. Please see axial series 2, image 36. Stable spiculated 1.9 cm mass in the right upper lobe posteromedially best seen axial series 4, image 148. Stable 9 mm nodule right mid lung best seen axial series 4, image 251. Grossly stable areas of nodular infiltrate in the left lung. Pleural spaces: Calcified right pleural plaques. Heart: Unremarkable. No cardiomegaly. No pericardial effusion. Coronary arteries: Coronary artery calcifications. Lymph nodes: Unremarkable. No enlarged lymph nodes. Vasculature: Vascular calcifications. Dilated pulmonary trunk measuring approximately 4.7 cm in diameter, suggesting pulmonary artery hypertension. Bones/joints: Cortical irregularity and slight cortical thickening of the posterior right 7th through 9th ribs, adjacent to the loculated pleural effusion. This appears stable is likely due to chronic inflammatory change. Old fracture posterior right 11th rib. Multiple old left rib fractures. The bones are demineralized and there is degenerative arthritis in the spine. Stable compression of several midthoracic vertebral bodies. Soft tissues: Bilateral mastectomies. Other findings: The images are severely degraded by motion. Emphysema. IMPRESSION: 1. No appreciable change from 05/08/2022 2. Bilateral patchy pulmonary nodules and infiltrates including a 1.9 cm spiculated nodule in the right upper lobe posteriorly. Recommend continued follow-up per oncologic protocol. 3. Stable loculated right posterior pleural effusion 4. Findings suggests pulmonary artery hypertension 5. Images are degraded by motion PROCEDURE INFORMATION: Exam: CT Abdomen And Pelvis Without Contrast Exam date and time: 09/06/2022 1:06 PM Age: 76 years old Clinical indication: Other: SOB, ruq abd pain, vomiting, HX copd; Prior surgery; Surgery date: 6+ months; Surgery type: Bilateral masectomy, hysterectomy; Patient HX: Breast CA, copd TECHNIQUE: Imaging protocol: Computed tomography of the abdomen and pelvis without contrast. COMPARISON: CT CHEST/ABD/PEL WO 05/08/2022 3:15 PM FINDINGS: Liver: Normal. No mass. Gallbladder and bile ducts: Cholecystectomy. Pancreas: Normal. No ductal dilation. Spleen: Normal. No splenomegaly. Adrenal glands: Normal. No mass. Kidneys and ureters: Normal. No hydronephrosis. Stomach and bowel: Diverticulosis without evidence of diverticulitis. No obstruction. No mucosal thickening. Appendix: No evidence of appendicitis. Intraperitoneal space: Postoperative changes in the anterior abdominal and pelvic wall at the midline. Vasculature: Very dense vascular calcifications. No abdominal aortic aneurysm. Lymph nodes: Unremarkable. No enlarged lymph nodes. Urinary bladder: Unremarkable as visualized. Reproductive: Hysterectomy. Bones/joints: Bones are demineralized and there is degenerative arthritis in the spine and pelvis. Soft tissues: Unremarkable. Other findings: Images are degraded by motion. IMPRESSION: 1. No acute findings and no appreciable change from 05/08/2022 2. Cholecystectomy hysterectomy 3. Diffuse vascular calcifications. Dictated and Authenticated by: Nila Hackett MD. Ordering:CAIO Zaman MD
[2022-09-06 13:45] LABS: COVID-19 PCR Positive (Negative)
[2022-09-06] MEDS: Normal Saline 500 ML IV (14:38)
[2022-09-06] MEDS: Albuterol/Ipratropium 3 ML UPD VIAL UPD (14:40)
[2022-09-06] MEDS: methylPREDNISolone SUCC 125 MG VIAL 80 MG IVP (14:40)
[2022-09-06] MEDS: levoFLOXacin 500 MG TAB PO (14:45)
[2022-09-06] MEDS: levoFLOXacin 250 MG TAB PO (14:45)
[2022-09-06 15:56] LABS: C-Reactive Protein 1.58 mg/dL (0.0-0.3)
[2022-09-06 16:30] LABS: Procalcitonin 1.3 ng/mL
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
[2022-09-06 17:32] LABS: Troponin I < 50 ng/L (<or=60)
--- NOTE | 2022-09-06 18:08 | TELEP.MEDR_ITS ---
Date of service: 09/06/22 Time of Service: 18:08 Telepharmacy Home Med Rec Allergies Allergies: Penicillins Allergy (Intermediate, Verified 09/04/22 15:12) Tetracyclines Allergy (Intermediate, Verified 09/04/22 15:12) Interview Person Interviewed: Began interview with patient and her home med list, patient asked provider in room to finish reading med list to me so wasnt able to verify last doses taken and some other details about medications. Quality Quality of Interview/Accuracy of Medication List: Fair Sources Sources used to compile medication list: [employer] Medication List, Patient List and [employer] Changes made to Home Medication List: ADDITIONS: * Ferrous sulfate 325mg po daily * Mirlax 17g po daily prn * Preservision 1 cap po daily * Mupirocin ointment 1 application topically bid prn * Omeprazole 40mg po BID * Refresh plus eye drops daily prn to both eyes DELETIONS: * Miconazole topical * Spiriva * Clotrimazole topical * Fluconazole CHANGES: * Mucinex ER 1200mg po daily * Magnesium 400mg po daily * Torsemide 60mg po daily * Prednisone 2.5mg po daily (PCP was planning to go to 5mg po daily but hadnt started yet) * Morphine ER 30mg po AM and 15mg po PM * Duoneb via nebulizer 1 vial BID and tid prn Additional Notes Additional Notes: Updated medication list with as much information as possible with provided info from patient and patients home med list. Recommended Changes Recommended Changes(reason for recommendation): None Attestation: The home medication list is now updated to the best of my knowledge and is ready to be reconciled by the provider. Please contact the [facility] Medication Reconciliation Pharmacist at for any questions.
--- NOTE | 2022-09-06 18:08 | TELEP.MEDREC ---
Date of service: 09/06/22 Time of Service: 18:08 Telepharmacy Home Med Rec Allergies Allergies: Penicillins Allergy (Intermediate, Verified 09/04/22 15:12) Tetracyclines Allergy (Intermediate, Verified 09/04/22 15:12) Interview Person Interviewed: Began interview with patient and her home med list, patient asked provider in room to finish reading med list to me so wasnt able to verify last doses taken and some other details about medications. Quality Quality of Interview/Accuracy of Medication List: Fair Sources Sources used to compile medication list: [employer] Medication List, Patient List and [employer] Changes made to Home Medication List: ADDITIONS: Ferrous sulfate 325mg po daily Mirlax 17g po daily prn Preservision 1 cap po daily Mupirocin ointment 1 application topically bid prn Omeprazole 40mg po BID Refresh plus eye drops daily prn to both eyes DELETIONS: Miconazole topical Spiriva Clotrimazole topical Fluconazole CHANGES: Mucinex ER 1200mg po daily Magnesium 400mg po daily Torsemide 60mg po daily Prednisone 2.5mg po daily (PCP was planning to go to 5mg po daily but hadnt started yet) Morphine ER 30mg po AM and 15mg po PM Duoneb via nebulizer 1 vial BID and tid prn Additional Notes Additional Notes: Updated medication list with as much information as possible with provided info from patient and patients home med list. Recommended Changes Recommended Changes(reason for recommendation): None Attestation: The home medication list is now updated to the best of my knowledge and is ready to be reconciled by the provider. Please contact the Tele[facility] Medication Reconciliation Pharmacist at for any questions.
[2022-09-06] MEDS: REMDESIVIR 200 MG in Normal Saline 250 ML 250 MG IVPB (18:11)
[2022-09-06 20:15] LABS: Bilirubin Negative (Negative); Blood Negative (Negative); Clarity Clear (Clear); Glucose Negative (Negative); Ketones 15 mg/dL (Negative); Leukocyte Esterase Negative (Negative); Nitrite Negative (Negative); Specific Gravity 1.025 (1.005-1.025); Urobilinogen 0.2 EU/dL (Up TO 0.2)
[2022-09-06] MEDS: Metoprolol CR 25 MG TABCR PO (21:32)
[2022-09-07 04:23] VITALS: RESP 8
[2022-09-07] MEDS: Albuterol/Ipratropium 3 ML UPD VIAL IH (04:23)
[2022-09-07 06:22] VITALS: O2SAT 94
[2022-09-07 06:52] LABS: Abs Immature Grans 0.03 10^3/uL (0.0-0.06); Absolute Basophil Count 0.01 10^3/uL (0.0-0.2); Absolute Eosinophil Count 0.01 10^3/uL (0.0-0.7); Absolute Lymphocyte Count 0.51 10^3/uL (1.2-3.4); Absolute Monocyte Count 0.74 10^3/uL (0.1-0.8); Absolute Neutrophil Count 8.15 10^3/uL (1.2-6.7); Basophils % 0.1; Eosinophils % 0.1; HCT 33.8 % (36.0-46.0); HGB 10.4 g/dL (11.2-15.7); Immature Grans % 0.3; Lymphocytes % 5.4; MCH 27.9 pg (27.0-33.0); MCHC 30.8 % (32.0-36.0); MCV 91 fL (80-95); MPV 11.9 fL (8.0-11.0); Monocytes % 7.8; Neutrophils % 86.3; Platelet Count 231 10^3/uL (130-400); RBC 3.73 10^6/uL (3.93-5.22); RDW 14.9 % (11.7-14.6); RDW-SD 49.6 fL; WBC 9.45 10^3/uL (4.4-10.8)
[2022-09-07 07:05] LABS: Anion Gap 2.5 mmol/L (3-11); BUN 29 mg/dL (7-18); CO2 35.5 mmol/L (21.0-32.0); CREATININE 0.9 mg/dL (0.55-1.02); Calcium 10.4 mg/dL (8.5-10.1); Chloride 97 mmol/L (98-107); Estimated GFR 66.67 (mL/min/1.73m2); Glucose 115 mg/dL (74-106); Potassium 4.3 mmol/L (3.5-5.1); Sodium 135 mmol/L (136-145)
[2022-09-07 08:15] VITALS: BP 182/79; PULSE 86; RESP 20; TEMP 36.6; O2SAT 92
[2022-09-07] MEDS: Dexamethasone 4 MG TAB 6 MG PO (08:41)
[2022-09-07] MEDS: Pantoprazole 40 MG TABCR PO (08:42)
[2022-09-07] MEDS: DULoxetine 30 MG CAP 60 MG PO (08:42)
[2022-09-07] MEDS: Sucralfate 1 GM TAB PO ×2 (08:43→16:54)
[2022-09-07] MEDS: Tiotropium Bromide-Respimat 10 PUFF INH IH (08:43)
--- NOTE | 2022-09-07 09:38 | W.PM.PROGNOT ---
Date of Service Date of service: 09/07/22 Time of Service: 09:38 Assessment and Plan Assessment and plan (1) Pneumonia due to COVID-19 virus: Status: Acute Assessment and plan: continue remdesivir and decadron continue respiratory inhalers, levaquin day 2 (2) Acute exacerbation of chronic obstructive pulmonary disease (COPD): Status: Acute Assessment and plan: As above palliative care patient on chronic morphine, with prn for resp distress, will continue and place palliative care consult for continuity of care, review goals of care (3) DVT prophylaxis: Status: Acute Assessment and plan: SCDs due to h/o GI bleeding (4) Discharge planning issues: Status: Acute Assessment and plan: DNR/DNI Palliative care and PT consulted. Anticipate discharge home when stable discussed with Dr Leon Subjective Subjective Patient reports: no new complaints, feels better, tolerating liquids well, tolerating a regular diet, voiding w/o difficulty and afebrile; denies shortness of breath Interval history since last seen: up to the chair, feeling much better Exam Const General: cooperative, comfortable, no acute distress and well developed Nutritional Appearance: overweight Orientation: oriented to person [facility] Head: normal to inspection and normocephalic Mouth: oral mucosae normal Eyes General: appearance normal, both eyes and all related structures Sclera: sclerae normal Neck Neck: full ROM Chest Chest: normal inspection of the chest Resp Effort & Inspection: normal respiratory effort Auscultation: diminished lung sounds and wheezes expiratory wheezes Cardio Rate: regular rate Rhythm: regular rhythm GI Palpation: soft and nontender Skin General skin exam: no rashes or lesions noted Neuro General: patient alert, patient awake, patient oriented x3 and no focal motor deficits Cognition: normal cognition Speech: speech normal Motor: muscle tone normal throughout Extrem General: normal to inspection, full ROM and edema Laterality: bilateral (trace) Psych Appearance: grossly normal Mental Status: mental status grossly normal Speech and Movement: speech and movement normal Mood: congruent mood Affect: normal affect Objective Last Vital Signs Temp 36.6 C 09/07/22 08:15 Pulse 86 09/07/22 08:15 Resp 20 09/07/22 08:15 BP 182/79 H 09/07/22 08:15 Pulse Ox 92 09/07/22 08:15 Laboratory Results - last 24 hr 09/06/22 09/06/22 09/06/22 11:36 11:36 11:36 WBC 15.89 H RBC 4.13 Hgb 11.5 Hct 38.1 MCV 92 MCH 27.8 MCHC 30.2 L RDW 14.9 H Plt Count 222 MPV 10.9 Immature Gran % 0.3 Neutrophils % 93.0 Lymphocytes % 1.3 Monocytes % 5.1 Eosinophils % 0.1 Basophils % 0.2 Nucleated RBC % 0.0 Absolute Neutrophils 14.78 H Absolute Lymphocytes 0.21 L Absolute Monocytes 0.81 H Absolute Eosinophils 0.02 Absolute Basophils 0.03 VBG pH VBG pCO2 VBG pO2 VBG HCO3 VBG Total CO2 VBG O2 Saturation VBG Base Excess Sodium 135 L Cancelled Potassium 4.4 Cancelled Chloride 96 L Cancelled Carbon Dioxide 37.1 H Cancelled Anion Gap 1.9 L Cancelled BUN 34 H Cancelled Creatinine 1.0 Cancelled Est GFR (CKD-EPI 2020) 58.75 Cancelled Glucose 144 H Cancelled Calcium 10.3 H Cancelled Magnesium 2.0 Total Bilirubin 0.6 Cancelled AST 14 L Cancelled ALT 24 Cancelled Alkaline Phosphatase 105 Cancelled Troponin I < 50 C-Reactive Protein NT-Pro-B Natriuret Pep 947 H Total Protein 6.8 Cancelled Albumin 3.8 Cancelled Lipase 27 Procalcitonin Urine Color Urine Clarity Urine pH Ur Specific [place] Urine Protein Urine Ketones Urine Blood Urine Nitrite Urine Bilirubin Urine Urobilinogen Ur Leukocyte Esterase Urine Glucose COVID-19 Source SARS-CoV-2 (PCR) Influenza Type A (PCR) Influenza Type B (PCR) RSV (PCR) 09/06/22 09/06/22 09/06/22 11:36 11:36 12:45 WBC RBC Hgb Hct MCV MCH MCHC RDW Plt Count MPV Immature Gran % Neutrophils % Lymphocytes % Monocytes % Eosinophils % Basophils % Nucleated RBC % Absolute Neutrophils Absolute Lymphocytes Absolute Monocytes Absolute Eosinophils Absolute Basophils VBG pH 7.31 VBG pCO2 74 H* VBG pO2 60 VBG HCO3 37 H VBG Total CO2 35 H VBG O2 Saturation 89 VBG Base Excess 11 H Sodium Potassium Chloride Carbon Dioxide Anion Gap BUN Creatinine Est GFR (CKD-EPI 2020) Glucose Calcium Magnesium Total Bilirubin AST ALT Alkaline Phosphatase Troponin I C-Reactive Protein 1.58 H NT-Pro-B Natriuret Pep Total Protein Albumin Lipase Procalcitonin 1.3 Urine Color Urine Clarity Urine pH Ur Specific [place] Urine Protein Urine Ketones Urine Blood Urine Nitrite Urine Bilirubin Urine Urobilinogen Ur Leukocyte Esterase Urine Glucose COVID-19 Source SARS-CoV-2 (PCR) Influenza Type A (PCR) Influenza Type B (PCR) RSV (PCR) 09/06/22 09/06/22 09/06/22 12:47 16:50 19:30 WBC RBC Hgb Hct MCV MCH MCHC RDW Plt Count MPV Immature Gran % Neutrophils % Lymphocytes % Monocytes % Eosinophils % Basophils % Nucleated RBC % Absolute Neutrophils Absolute Lymphocytes Absolute Monocytes Absolute Eosinophils Absolute Basophils VBG pH VBG pCO2 VBG pO2 VBG HCO3 VBG Total CO2 VBG O2 Saturation VBG Base Excess Sodium Potassium Chloride Carbon Dioxide Anion Gap BUN Creatinine Est GFR (CKD-EPI 2020) Glucose Calcium Magnesium Total Bilirubin AST ALT Alkaline Phosphatase Troponin I < 50 C-Reactive Protein NT-Pro-B Natriuret Pep Total Protein Albumin Lipase Procalcitonin Urine Color Yellow Urine Clarity Clear Urine pH 6.0 Ur Specific [place] 1.025 Urine Protein Negative Urine Ketones 15 H Urine Blood Negative Urine Nitrite Negative Urine Bilirubin Negative Urine Urobilinogen 0.2 Ur Leukocyte Esterase Negative Urine Glucose Negative COVID-19 Source Nasopharynx SARS-CoV-2 (PCR) Positive A Influenza Type A (PCR) Negative Influenza Type B (PCR) Negative RSV (PCR) Negative 09/07/22 09/07/22 06:00 06:00 WBC 9.45 RBC 3.73 L Hgb 10.4 L Hct 33.8 L MCV 91 MCH 27.9 MCHC 30.8 L RDW 14.9 H Plt Count 231 MPV 11.9 H Immature Gran % 0.3 Neutrophils % 86.3 Lymphocytes % 5.4 Monocytes % 7.8 Eosinophils % 0.1 Basophils % 0.1 Nucleated RBC % 0.0 Absolute Neutrophils 8.15 H Absolute Lymphocytes 0.51 L Absolute Monocytes 0.74 Absolute Eosinophils 0.01 Absolute Basophils 0.01 VBG pH VBG pCO2 VBG pO2 VBG HCO3 VBG Total CO2 VBG O2 Saturation VBG Base Excess Sodium 135 L Potassium 4.3 Chloride 97 L Carbon Dioxide 35.5 H Anion Gap 2.5 L BUN 29 H Creatinine 0.9 Est GFR (CKD-EPI 2020) 66.67 Glucose 115 H Calcium 10.4 H Magnesium Total Bilirubin AST ALT Alkaline Phosphatase Troponin I C-Reactive Protein NT-Pro-B Natriuret Pep Total Protein Albumin Lipase Procalcitonin Urine Color Urine Clarity Urine pH Ur Specific [place] Urine Protein Urine Ketones Urine Blood Urine Nitrite Urine Bilirubin Urine Urobilinogen Ur Leukocyte Esterase Urine Glucose COVID-19 Source SARS-CoV-2 (PCR) Influenza Type A (PCR) Influenza Type B (PCR) RSV (PCR)
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
[2022-09-07] MEDS: levoFLOXacin 750 MG/150 ML BAG 100 MG IVPB (14:23)
[2022-09-07 15:34] VITALS: BP 161/82; PULSE 74; RESP 20; TEMP 36.4; O2SAT 96
[2022-09-07] MEDS: Clotrimazole/Betamet Diprop Cream 15 GM TUBE TP ×2 (16:54→20:17)
[2022-09-07] MEDS: Fluconazole 100 MG TAB PO (16:54)
[2022-09-07] MEDS: REMDESIVIR 100 MG in Normal Saline 250 ML 250 MG IVPB (16:55)
[2022-09-07] MEDS: Budesonide/Formoterol 160/4.5 6 GM 60 PUFF INH IH (21:57)
[2022-09-07] MEDS: Metoprolol CR 25 MG TABCR PO (21:57)
[2022-09-07 22:03] VITALS: BP 159/82; PULSE 76; RESP 18; TEMP 36.5; O2SAT 96
[2022-09-08] MEDS: Tiotropium Bromide-Respimat 10 PUFF INH IH (08:15)
[2022-09-08] MEDS: Budesonide/Formoterol 160/4.5 6 GM 60 PUFF INH IH ×2 (08:15→19:46)
[2022-09-08 08:16] VITALS: O2SAT 95
[2022-09-08 08:21] VITALS: BP 181/85; PULSE 79; RESP 20; TEMP 36.5; O2SAT 95
[2022-09-08] MEDS: Dexamethasone 4 MG TAB 6 MG PO (09:00)
[2022-09-08] MEDS: Sucralfate 1 GM TAB PO ×2 (09:00→17:10)
[2022-09-08] MEDS: Pantoprazole 40 MG TABCR PO (09:01)
[2022-09-08] MEDS: DULoxetine 30 MG CAP 60 MG PO (09:01)
[2022-09-08] MEDS: Clotrimazole/Betamet Diprop Cream 15 GM TUBE TP ×2 (09:02→19:46)
--- NOTE | 2022-09-08 09:18 | W.PM.PROGNOT ---
Date of Service Date of service: 09/08/22 Time of Service: 09:18 Assessment and Plan Assessment and plan (1) Pneumonia due to COVID-19 virus: Status: Acute Assessment and plan: continue remdesivir and decadron continue respiratory inhalers, levaquin day 3 (2) Acute exacerbation of chronic obstructive pulmonary disease (COPD): Status: Acute Assessment and plan: As above palliative care patient on chronic morphine, with prn for resp distress, will continue and place palliative care consult for continuity of care, review goals of care (3) DVT prophylaxis: Status: Acute Assessment and plan: SCDs due to h/o GI bleeding (4) Discharge planning issues: Status: Acute Assessment and plan: DNR/DNI Palliative care and PT consulted. Anticipate discharge home when stable discussed with Dr Leon Subjective Subjective Patient reports: no new complaints, feels better, tolerating a regular diet and afebrile; denies diarrhea or vomiting Exam Const General: cooperative, comfortable, no acute distress and well developed Nutritional Appearance: overweight Orientation: oriented to person [facility] Head: normal to inspection and normocephalic Mouth: oral mucosae normal Eyes General: appearance normal, both eyes and all related structures Sclera: sclerae normal Neck Neck: full ROM Chest Chest: normal inspection of the chest Resp Effort & Inspection: normal respiratory effort Auscultation: diminished lung sounds and wheezes expiratory wheezes Cardio Rate: regular rate Rhythm: regular rhythm GI Palpation: soft and nontender Skin General skin exam: no rashes or lesions noted Neuro General: patient alert, patient awake, patient oriented x3 and no focal motor deficits Cognition: normal cognition Speech: speech normal Motor: muscle tone normal throughout Extrem General: normal to inspection, full ROM and edema Laterality: bilateral (trace) Psych Appearance: grossly normal Mental Status: mental status grossly normal Speech and Movement: speech and movement normal Mood: congruent mood Affect: normal affect Objective Last Vital Signs Temp 36.5 C 09/08/22 08:21 Pulse 79 09/08/22 08:21 Resp 20 09/08/22 08:21 BP 181/85 H 09/08/22 08:21 Pulse Ox 95 09/08/22 08:21
--- NOTE | 2022-09-08 10:11 | CMPROGNOTE_ITS ---
- If Service Date Differs Date of service: 09/08/22 Time of Service: 10:11 Care Management Progress Note S/O: CM met with Madelin by phone since she is on Covid precautions. Madelin is requesting a CPAP machine, RT is notified. Palliative consult is ordered. Per palliative provider, Thursday consult is planned. CM continues to follow. A: 77 year old female admitted to [facility] on Covid, Pna P: Anticipate, Madelin will return home with a resumption of services including [facility] HH and [facility] SN and PT. She will follow up with her community providers and plan of care and transport with her daughter vs [facility]. CM will continue to offer support to Madelin and her discharge needs.
[2022-09-08 12:25] VITALS: BP 167/81; PULSE 82; RESP 20; TEMP 36.9; O2SAT 93
[2022-09-08] MEDS: levoFLOXacin 750 MG/150 ML BAG 100 MG IVPB (14:53)
[2022-09-08] MEDS: Normal Saline Flush 10 ML SYR IVP (14:53)
[2022-09-08 15:11] VITALS: BP 188/96; PULSE 85; RESP 24; TEMP 36.3; O2SAT 94
[2022-09-08] MEDS: REMDESIVIR 100 MG in Normal Saline 250 ML 250 MG IVPB (17:10)
[2022-09-08 18:07] VITALS: RESP 10
[2022-09-08] MEDS: MORPHine Oral Concentrate 20 MG/ML 5 MG PO (19:46)
[2022-09-08 23:53] VITALS: BP 179/87; PULSE 78; RESP 20; TEMP 36.4; O2SAT 95
[2022-09-08] MEDS: Metoprolol CR 25 MG TABCR PO (23:53)
[2022-09-09] MEDS: Budesonide/Formoterol 160/4.5 6 GM 60 PUFF INH IH ×2 (07:53→19:38)
[2022-09-09] MEDS: Tiotropium Bromide-Respimat 10 PUFF INH IH (07:53)
[2022-09-09 08:29] VITALS: BP 161/82; PULSE 68; RESP 18; TEMP 36.2; O2SAT 98
[2022-09-09] MEDS: Clotrimazole/Betamet Diprop Cream 15 GM TUBE TP ×2 (09:25→19:38)
[2022-09-09] MEDS: Dexamethasone 4 MG TAB 6 MG PO (09:26)
[2022-09-09] MEDS: DULoxetine 30 MG CAP 60 MG PO (09:26)
[2022-09-09 09:27] LABS: Abs Immature Grans 0.02 10^3/uL (0.0-0.06); Absolute Basophil Count 0.02 10^3/uL (0.0-0.2); Absolute Eosinophil Count 0.07 10^3/uL (0.0-0.7); Absolute Lymphocyte Count 0.77 10^3/uL (1.2-3.4); Absolute Monocyte Count 0.87 10^3/uL (0.1-0.8); Absolute Neutrophil Count 5.33 10^3/uL (1.2-6.7); Basophils % 0.3; HCT 34.1 % (36.0-46.0); HGB 10.6 g/dL (11.2-15.7); Immature Grans % 0.3; Lymphocytes % 10.9; MCH 28.2 pg (27.0-33.0); MCHC 31.1 % (32.0-36.0); MCV 91 fL (80-95); MPV 11.7 fL (8.0-11.0); Monocytes % 12.3; Neutrophils % 75.2; Platelet Count 239 10^3/uL (130-400); RBC 3.76 10^6/uL (3.93-5.22); RDW 14.5 % (11.7-14.6); RDW-SD 47.8 fL; WBC 7.08 10^3/uL (4.4-10.8)
[2022-09-09] MEDS: MORPHine Oral Concentrate 20 MG/ML 5 MG PO ×2 (09:27→23:22)
[2022-09-09] MEDS: Pantoprazole 40 MG TABCR PO (09:28)
[2022-09-09] MEDS: Sucralfate 1 GM TAB PO ×2 (09:28→17:11)
[2022-09-09] MEDS: Normal Saline Flush 10 ML SYR IVP ×6 (09:29→19:40)
[2022-09-09 09:43] LABS: Anion Gap 0.6 mmol/L (3-11); BUN 25 mg/dL (7-18); CO2 35.4 mmol/L (21.0-32.0); CREATININE 0.7 mg/dL (0.55-1.02); Calcium 10.1 mg/dL (8.5-10.1); Chloride 96 mmol/L (98-107); Estimated GFR 89.58 (mL/min/1.73m2); Glucose 100 mg/dL (74-106); Magnesium 2.1 mg/dL (1.8-2.4); Potassium 4.3 mmol/L (3.5-5.1); Sodium 132 mmol/L (136-145)
[2022-09-09] MEDS: Ondansetron 4 MG/2 ML VIAL IVP ×3 (10:16→21:01)
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
[2022-09-09 13:49] VITALS: PULSE 87; O2SAT 93
[2022-09-09] MEDS: levoFLOXacin 750 MG/150 ML BAG 100 MG IVPB (15:02)
[2022-09-09 15:56] VITALS: BP 137/76; PULSE 79; RESP 18; TEMP 36.9; O2SAT 95
--- NOTE | 2022-09-09 16:48 | PDOC.CMPRO ---
- If Service Date Differs Date of service: 09/09/22 Time of Service: 16:48 Care Management Progress Note S/O: CM met with Madelin by phone since she is on Covid precautions. She is awake, alert and able to engage in conversation. She is currently 95% on RA and she feels like shes getting better. Palliative consult is ordered. Per palliative provider, Thursday consult is planned. CM continues to follow. A: 77 year old female admitted to [facility] on Covid, Pna P: Anticipate, Madelin will return home with a resumption of services including [facility] HH and [facility] SN and PT. She will follow up with her community providers and plan of care and transport with her daughter vs [facility]. CM will continue to offer support to Madelin and her discharge needs.
[2022-09-09] MEDS: REMDESIVIR 100 MG in Normal Saline 250 ML 250 MG IVPB (17:11)
[2022-09-09 19:29] VITALS: BP 147/68; PULSE 80; RESP 18; TEMP 36.5; O2SAT 93
[2022-09-09] MEDS: Ascorbic Acid 500 MG TAB 1000 MG PO (19:38)
--- NOTE | 2022-09-09 19:43 | W.PM.PROGNOT ---
Date of Service Date of service: 09/09/22 Time of Service: 13:00 Assessment and Plan Assessment and plan (1) Pneumonia due to COVID-19 virus: Status: Acute Assessment and plan: continue remdesivir and decadron continue respiratory inhalers, levaquin day 3 Procal 1.3 Vit C, D zinc Wean oxygen - home oxygen 2 lpm Blood cx: pending (2) Acute exacerbation of chronic obstructive pulmonary disease (COPD): Status: Acute Assessment and plan: As above palliative care patient on chronic morphine, with prn for resp distress, will continue and place palliative care consult for continuity of care, review goals of care IS Acapella (3) DVT prophylaxis: Status: Acute Assessment and plan: SCDs due to h/o GI bleeding (4) Discharge planning issues: Status: Acute Assessment and plan: DNR/DNI Palliative care and PT consulted. Anticipate discharge home when stable discussed with Dr Rubalcava Subjective Subjective Patient reports: no new complaints, tolerating a regular diet, bowel movement and afebrile; denies diarrhea, nausea, vomiting or shortness of breath Exam Const General: cooperative, comfortable, no acute distress and well developed Nutritional Appearance: overweight Orientation: oriented to person [facility] Head: normal to inspection and normocephalic Mouth: oral mucosae normal Eyes General: appearance normal, both eyes and all related structures Sclera: sclerae normal Neck Neck: full ROM Chest Chest: normal inspection of the chest Resp Effort & Inspection: normal respiratory effort Auscultation: diminished lung sounds and wheezes expiratory wheezes Cardio Rate: regular rate Rhythm: regular rhythm GI Palpation: soft and nontender Skin General skin exam: no rashes or lesions noted Neuro General: patient alert, patient awake, patient oriented x3 and no focal motor deficits Cognition: normal cognition Speech: speech normal Motor: muscle tone normal throughout Extrem General: normal to inspection, full ROM and edema Laterality: bilateral (trace) Psych Appearance: grossly normal Mental Status: mental status grossly normal Speech and Movement: speech and movement normal Mood: congruent mood Affect: normal affect Objective Last Vital Signs Temp 36.5 C 09/09/22 19:29 Pulse 80 09/09/22 19:29 Resp 18 09/09/22 19:29 BP 147/68 H 09/09/22 19:29 Pulse Ox 93 09/09/22 19:29 Laboratory Results - last 24 hr 09/09/22 09/09/22 07:50 07:50 WBC 7.08 RBC 3.76 L Hgb 10.6 L Hct 34.1 L MCV 91 MCH 28.2 MCHC 31.1 L RDW 14.5 Plt Count 239 MPV 11.7 H Immature Gran % 0.3 Neutrophils % 75.2 Lymphocytes % 10.9 Monocytes % 12.3 Eosinophils % 1.0 Basophils % 0.3 Nucleated RBC % 0.0 Absolute Neutrophils 5.33 Absolute Lymphocytes 0.77 L Absolute Monocytes 0.87 H Absolute Eosinophils 0.07 Absolute Basophils 0.02 Sodium 132 L Potassium 4.3 Chloride 96 L Carbon Dioxide 35.4 H Anion Gap 0.6 L BUN 25 H Creatinine 0.7 Est GFR (CKD-EPI 2020) 89.58 Glucose 100 Calcium 10.1 Magnesium 2.1 Reviewed Pertinent PMH: Yes
[2022-09-09] MEDS: Acetaminophen 325 MG TAB 650 MG PO (21:00)
[2022-09-09] MEDS: Albuterol/Ipratropium 3 ML UPD VIAL IH (21:02)
[2022-09-09 21:32] VITALS: RESP 1; RESP 8
[2022-09-09] MEDS: Metoprolol CR 25 MG TABCR PO (23:22)
[2022-09-09 23:39] VITALS: BP 165/77; PULSE 71; RESP 18; TEMP 35.9; O2SAT 98
--- NOTE | 2022-09-10 05:02 | NUR.NOTE ---
Nursing Note: Medication Morphine Incorrect Documentation. Charted on wrong order. at approximately 0500am Upon a patient chart review. I recognized, I documented the pt's 5mg oral solution morphine under the 15mg BID order. I am creating this note. to say that I did try to unchart the documenting on the incorrect order. at 0145 on 09/10/22. I intended to document the pt receiving the 5mg po of oral solution. and NOT the 15mg po tablet. The patient did not receive a dose of 15mg po morphine at that time. and received only 5mg po solution. The oral dosage container is a multi dosing vial and i did not bring the vial into the patients room upon documenting.
[2022-09-10] MEDS: Ondansetron 4 MG/2 ML VIAL IVP ×4 (06:13→23:57)
[2022-09-10 07:03] LABS: Abs Immature Grans 0.06 10^3/uL (0.0-0.06); Absolute Basophil Count 0.02 10^3/uL (0.0-0.2); Absolute Eosinophil Count 0.07 10^3/uL (0.0-0.7); Absolute Monocyte Count 0.78 10^3/uL (0.1-0.8); Absolute Neutrophil Count 5.31 10^3/uL (1.2-6.7); Basophils % 0.3; HCT 33.3 % (36.0-46.0); HGB 10.2 g/dL (11.2-15.7); Immature Grans % 0.9; Lymphocytes % 11.4; MCH 27.9 pg (27.0-33.0); MCHC 30.6 % (32.0-36.0); MCV 91 fL (80-95); MPV 11.1 fL (8.0-11.0); Monocytes % 11.1; Neutrophils % 75.3; Nucleated RBC 0.3 % (0.0-0.3); Platelet Count 232 10^3/uL (130-400); RBC 3.66 10^6/uL (3.93-5.22); RDW 14.4 % (11.7-14.6); RDW-SD 48.6 fL; WBC 7.04 10^3/uL (4.4-10.8)
[2022-09-10 07:15] LABS: BUN 29 mg/dL (7-18); CREATININE 0.8 mg/dL (0.55-1.02); Calcium 9.6 mg/dL (8.5-10.1); Chloride 96 mmol/L (98-107); Estimated GFR 76.31 (mL/min/1.73m2); Glucose 109 mg/dL (74-106); Magnesium 1.8 mg/dL (1.8-2.4); Potassium 4.4 mmol/L (3.5-5.1); Sodium 132 mmol/L (136-145)
[2022-09-10 08:03] VITALS: BP 157/80; PULSE 64; RESP 19; TEMP 36.8; O2SAT 93
[2022-09-10] MEDS: Tiotropium Bromide-Respimat 10 PUFF INH IH (08:12)
[2022-09-10] MEDS: Budesonide/Formoterol 160/4.5 6 GM 60 PUFF INH IH ×2 (08:12→20:05)
[2022-09-10] MEDS: MORPHine Oral Concentrate 20 MG/ML 5 MG PO ×2 (09:30→20:03)
[2022-09-10] MEDS: Cholecalciferol (Vitamin D3) 1,000 UNIT TAB 2000 UNITS PO (09:32)
[2022-09-10] MEDS: Zinc Sulfate 220 MG TAB PO (09:32)
[2022-09-10] MEDS: Famotidine 20 MG TAB PO (09:33)
[2022-09-10] MEDS: Sucralfate 1 GM TAB PO ×2 (09:33→17:15)
[2022-09-10] MEDS: Ascorbic Acid 500 MG TAB 1000 MG PO ×2 (09:33→20:04)
[2022-09-10] MEDS: DULoxetine 30 MG CAP 60 MG PO (09:33)
[2022-09-10] MEDS: Dexamethasone 4 MG TAB 6 MG PO (09:34)
[2022-09-10] MEDS: Clotrimazole/Betamet Diprop Cream 15 GM TUBE TP ×2 (09:39→20:05)
--- NOTE | 2022-09-10 12:02 | PT.INTREAT ---
PT Notes Visit Reasons: COVID, Pneumonia Date: 09/10/2022 PRECAUTIONS: Activity as tolerated SUBJECTIVE: Pt in recliner when approached for therapy this morning, pt pleasant and agreeable to therapy. OBJECTIVE: ? PAIN: No c/o pain ? BED MOBILITY/TRANSFERS? Sit-stand: I? Stand-sit: I ? GAIT? Assistive Device: FWW ? Weight bearing: Full Assist: S ? Distance: Room vicinity per Covid Deviation: SOB, 2L O2, seated rest Therapeutic procedure: Seated chest expansion exercises, seated marching and hip ROM all planes ASSESSMENT:? Patient tolerated activity well, seated rest break with DBE in between activity to accommodate SOB PLAN: Patient to discharge to home tomorrow. TREATMENT CODE/TIME: 25 minutes; [id number] (11:35am)
[2022-09-10 12:17] VITALS: BP 136/80; PULSE 64; RESP 16; TEMP 36; O2SAT 95
--- NOTE | 2022-09-10 13:12 | W.PM.PROGNOT ---
Date of Service Date of service: 09/10/22 Time of Service: 13:12 Assessment and Plan Assessment and plan (1) Pneumonia due to COVID-19 virus: Status: Acute Assessment and plan: continue remdesivir and decadron continue respiratory inhalers, levaquin day 4 Procal 1.3 Vit C, D zinc Wean oxygen - home oxygen 2 lpm Blood cx: no growth at 24h (2) Acute exacerbation of chronic obstructive pulmonary disease (COPD): Status: Acute Assessment and plan: As above palliative care patient on chronic morphine, with prn for resp distress, will continue and place palliative care consult for continuity of care, review goals of care IS Acapella (3) DVT prophylaxis: Status: Acute Assessment and plan: SCDs due to h/o GI bleeding (4) Discharge planning issues: Status: Acute Assessment and plan: DNR/DNI Palliative care saw her today and patient chooses to go home on home hospice tomorrow - see their note. She is stable and should be able to go home tomorrow. discussed with Dr Rubalcava Subjective Subjective Patient reports: no new complaints, feels better, tolerating a regular diet, nausea (c/o some minimal nausea that is relieved by ondansetron) and afebrile; denies diarrhea or vomiting Interval history since last seen: Patient is feeling overall better, except some residual nausea. This nausea is resolved w ondansetron. She is in agreement to go home on home hospice tomorrow if all continues to improve. She was seen by Palliative Care - see their note. Exam Const General: cooperative, comfortable, no acute distress and well developed Nutritional Appearance: overweight Orientation: oriented to person [facility] Head: normal to inspection and normocephalic Mouth: oral mucosae normal Eyes General: appearance normal, both eyes and all related structures Sclera: sclerae normal Neck Neck: full ROM Chest Chest: normal inspection of the chest Resp Effort & Inspection: normal respiratory effort Auscultation: diminished lung sounds and wheezes expiratory wheezes Cardio Rate: regular rate Rhythm: regular rhythm GI Palpation: soft and nontender Skin General skin exam: no rashes or lesions noted Neuro General: patient alert, patient awake, patient oriented x3 and no focal motor deficits Cognition: normal cognition Speech: speech normal Motor: muscle tone normal throughout Extrem General: normal to inspection, full ROM and edema Laterality: bilateral (trace) Psych Appearance: grossly normal Mental Status: mental status grossly normal Speech and Movement: speech and movement normal Mood: congruent mood Affect: normal affect Objective Last Vital Signs Temp 36 C L 09/10/22 12:17 Pulse 64 09/10/22 12:17 Resp 16 09/10/22 12:17 BP 136/80 09/10/22 12:17 Pulse Ox 95 09/10/22 12:17 Laboratory Results - last 24 hr 09/10/22 09/10/22 06:15 06:15 WBC 7.04 RBC 3.66 L Hgb 10.2 L Hct 33.3 L MCV 91 MCH 27.9 MCHC 30.6 L RDW 14.4 Plt Count 232 MPV 11.1 H Immature Gran % 0.9 Neutrophils % 75.3 Lymphocytes % 11.4 Monocytes % 11.1 Eosinophils % 1.0 Basophils % 0.3 Nucleated RBC % 0.3 Absolute Neutrophils 5.31 Absolute Lymphocytes 0.80 L Absolute Monocytes 0.78 Absolute Eosinophils 0.07 Absolute Basophils 0.02 Sodium 132 L Potassium 4.4 Chloride 96 L Carbon Dioxide 35.0 H Anion Gap 1.0 L BUN 29 H Creatinine 0.8 Est GFR (CKD-EPI 2020) 76.31 Glucose 109 H Calcium 9.6 Magnesium 1.8 Reviewed Pertinent PMH: Yes
[2022-09-10] MEDS: levoFLOXacin 750 MG/150 ML BAG 100 MG IVPB (15:10)
--- NOTE | 2022-09-10 15:51 | PDOC.CMPRO ---
- If Service Date Differs Date of service: 09/10/22 Time of Service: 15:51 Care Management Progress Note S/O: CM met with Madelin by phone since she is on Covid precautions. She is awake, alert and able to engage in conversation. She is currently 95% on 2L NC. Tiny from Palliative met with Madelin today and the decision is made to discharge home tomorrow and admit to Hospice Services on Thursday. COLST form is on file from 06/25/22. Senior Account Manager Tri is notified. CM continues to follow. A: 77 year old female admitted to [facility] on Covid, Pna P: Anticipate, Madelin will discharge home with a resumption of services including [facility] and [facility] SN and PT. The plan is to admit to Hospice services on Thursday. Madelin will follow up with her community providers and plan of care and transport with her daughter vs RCT. CM will continue to offer support to Madelin and her discharge needs.
[2022-09-10 16:14] VITALS: BP 128/72; PULSE 81; RESP 18; TEMP 36.6; O2SAT 96
[2022-09-10] MEDS: REMDESIVIR 100 MG in Normal Saline 250 ML 250 MG IVPB (17:15)
[2022-09-10] MEDS: Polyethylene Glycol 3350 17 GM PACKET PO (18:23)
[2022-09-10 20:00] VITALS: BP 156/74; PULSE 75; RESP 20; TEMP 36.5; O2SAT 95
[2022-09-10] MEDS: Albuterol/Ipratropium 3 ML UPD VIAL IH (20:04)
[2022-09-10] MEDS: Acetaminophen 325 MG TAB 650 MG PO (20:04)
[2022-09-10] MEDS: Normal Saline Flush 10 ML SYR IVP (20:05)
[2022-09-10 20:25] VITALS: O2SAT 98
[2022-09-10 20:34] VITALS: RESP 1
[2022-09-10] MEDS: Metoprolol CR 25 MG TABCR PO (23:57)
[2022-09-11 00:05] VITALS: BP 157/76; PULSE 70; RESP 20; TEMP 36.7; O2SAT 92
[2022-09-11] MEDS: Ondansetron 4 MG/2 ML VIAL IVP ×2 (05:51→12:20)
[2022-09-11 07:06] LABS: Abs Immature Grans 0.16 10^3/uL (0.0-0.06); Absolute Basophil Count 0.02 10^3/uL (0.0-0.2); Absolute Eosinophil Count 0.07 10^3/uL (0.0-0.7); Absolute Lymphocyte Count 0.94 10^3/uL (1.2-3.4); Absolute Monocyte Count 0.91 10^3/uL (0.1-0.8); Basophils % 0.2; Eosinophils % 0.8; HCT 35.6 % (36.0-46.0); HGB 10.8 g/dL (11.2-15.7); Immature Grans % 1.9; Lymphocytes % 11.3; MCH 28.1 pg (27.0-33.0); MCHC 30.3 % (32.0-36.0); MCV 93 fL (80-95); MPV 11.4 fL (8.0-11.0); Neutrophils % 74.8; Platelet Count 268 10^3/uL (130-400); RBC 3.84 10^6/uL (3.93-5.22); RDW 14.6 % (11.7-14.6); RDW-SD 49.6 fL
[2022-09-11 07:29] LABS: Anion Gap 0 mmol/L (3-11); BUN 34 mg/dL (7-18); CREATININE 0.9 mg/dL (0.55-1.02); Calcium 9.7 mg/dL (8.5-10.1); Chloride 98 mmol/L (98-107); Estimated GFR 66.26 (mL/min/1.73m2); Glucose 106 mg/dL (74-106); Magnesium 2.1 mg/dL (1.8-2.4); Potassium 4.6 mmol/L (3.5-5.1); Sodium 132 mmol/L (136-145)
[2022-09-11] MEDS: Tiotropium Bromide-Respimat 10 PUFF INH IH (07:35)
[2022-09-11] MEDS: Budesonide/Formoterol 160/4.5 6 GM 60 PUFF INH IH (07:35)
[2022-09-11 08:13] VITALS: BP 131/69; PULSE 70; RESP 18; TEMP 36.3; O2SAT 95
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
[2022-09-11] MEDS: Ascorbic Acid 500 MG TAB 1000 MG PO (10:03)
[2022-09-11] MEDS: Cholecalciferol (Vitamin D3) 1,000 UNIT TAB 2000 UNITS PO (10:03)
[2022-09-11] MEDS: DULoxetine 30 MG CAP 60 MG PO (10:04)
[2022-09-11] MEDS: Dexamethasone 4 MG TAB 6 MG PO (10:04)
[2022-09-11] MEDS: Clotrimazole/Betamet Diprop Cream 15 GM TUBE TP (10:04)
[2022-09-11] MEDS: Famotidine 20 MG TAB PO (10:05)
[2022-09-11] MEDS: Polyethylene Glycol 3350 17 GM PACKET PO (10:05)
[2022-09-11] MEDS: Zinc Sulfate 220 MG TAB PO (10:05)
[2022-09-11] MEDS: Sucralfate 1 GM TAB PO ×2 (10:05→16:03)
[2022-09-11] MEDS: MORPHine Oral Concentrate 20 MG/ML 5 MG PO ×2 (10:06→16:03)
[2022-09-11 12:20] VITALS: RESP 4
[2022-09-11] MEDS: Albuterol/Ipratropium 3 ML UPD VIAL IH (12:20)
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
--- NOTE | 2022-09-11 15:00 | CMDISCH_ITS ---
- If Service Date Differs Date of service: 09/11/22 Time of Service: 15:00 LACE Index Scoring Tool - Questions: Length of Stay (in days): 4 - 6 Acuity (Admit via E.D.?): Yes Comorbidities: Chronic Pulmonary Disease, Dementia (Mild cognitive impairment), Metastatic Solid Tumor (Breast Cancer, Right Lung Cancer) E.D. Visits: 8 - Answers: Total Score: 16 Risk of Readmission: High Risk Care Management Discharge Reason for Hospitalization: Covid, Pna Discharge Plan: Carly is discharged home via EMS. She will follow up with community providers, Resume her [facility]FC services and discharge plan of care as prescribed. Carly will follow up with her PCP 09/25/22, as scheduled. Carly has a planned admission to Hospice services tomorrow. Her goal is to remain at home for as long as possible, and seek prison placement when the time comes. Hospice is closely following. Patient/Family Education Needs: Review discharge instructions, limitations, medications and plan to follow up with Hospice and community providers. Discuss ask me three and goals of self care. Services Needed at Discharge: Home Health Care Services (Planning to admit to Hospice services on Thursday. Resumption of CFC. Dada and Tri at [facility] are notified. ), Transportation (EMS/[facility] coordinated by CM)
[2022-09-11] MEDS: Normal Saline Flush 10 ML SYR IVP (16:03)
[2022-09-11] MEDS: Heparin 500 UNITS/5 ML SYRINGE IVP (16:03)
[2022-11-13 12:06] LABS: Lab Add On Test DONE
== END 2022-09-11 17:22 | disposition hospice, home (50) | DRG 177 ==
LOC: ER 16:11 → MS 17:07
PROVIDERS: Nurse Practitioner Acute Care; Nurse Practitioner Family; Admitting Provider Internal Medicine; Emergency Provider Registered Nurse Emergency; PCP Family Medicine; Visit Provider Internal Medicine
DX: U07.1 COVID-19 (principal); J12.82 Pneumonia due to coronavirus disease 2019; J96.21 Acute and chronic respiratory failure with hypoxia; J96.22 Acute and chronic respiratory failure with hypercapnia; J44.0 Chronic obstructive pulmonary disease with (acute) lower respiratory infection; J44.1 Chronic obstructive pulmonary disease with (acute) exacerbation; C34.11 Malignant neoplasm of upper lobe, right bronchus or lung; C34.32 Malignant neoplasm of lower lobe, left bronchus or lung; I51.89 Other ill-defined heart diseases; R32 Unspecified urinary incontinence; F41.9 Anxiety disorder, unspecified; F32.A Depression, unspecified; E78.5 Hyperlipidemia, unspecified; G31.84 Mild cognitive impairment of uncertain or unknown etiology; D50.9 Iron deficiency anemia, unspecified; K59.00 Constipation, unspecified; F17.210 Nicotine dependence, cigarettes, uncomplicated; Z66 Do not resuscitate; Z99.81 Dependence on supplemental oxygen; Z85.3 Personal history of malignant neoplasm of breast; Z90.13 Acquired absence of bilateral breasts and nipples; G89.29 Other chronic pain
CPT/HCPCS: 36415; 71250; 80048; 80053; 82805; 83690; 84145; 87040; 87637; 93005; 94618; 94640; 96361; 96374; 96375; 97110; 97116; 97162; 99285; 74176; 81003; 83735; 83880; 84484; 85025; 86140; 93010; 94660; 94668; 99223; 99232; 99233; 99239; J0248; J1956; J2405; J2930; J7620; J8540

== ENCOUNTER 2022-10-06 19:11 | Emergency (ER) | payer MEDICARE, MEDICAID, SELFPAY ==
[2022-10-06 19:12] VITALS: BP 136/61; PULSE 81; RESP 20; TEMP 37.1; O2SAT 100
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
[2022-10-06 19:40] VITALS: RESP 24
== END 2022-10-06 20:02 | disposition home or self-care (01) ==
LOC: ER 19:46
PROVIDERS: Emergency Provider Emergency Medicine; PCP Family Medicine
DX: R06.02 Shortness of breath (principal); J44.9 Chronic obstructive pulmonary disease, unspecified; Z99.81 Dependence on supplemental oxygen; C34.90 Malignant neoplasm of unspecified part of unspecified bronchus or lung
CPT/HCPCS: 99283; 99282

== ENCOUNTER 2022-10-07 21:08 | Inpatient (IN) | payer OTHER, SELFPAY ==
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
[2022-10-07] MEDS: MORPHine 250 MG in Normal Saline 245 ML IV (21:47)
[2022-10-07] MEDS: LORazepam 2 MG/ML VIAL IV/SC (22:08)
[2022-10-07] MEDS: Normal Saline Flush 10 ML SYR (22:09)
[2022-10-08] MEDS: LORazepam 2 MG/ML VIAL IV/SC ×4 (02:20→12:40)
[2022-10-08] MEDS: Normal Saline Flush 10 ML SYR (02:23)
[2022-10-08] MEDS: Normal Saline Flush 10 ML SYR IVP ×2 (09:51→12:40)
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
--- NOTE | 2022-10-08 11:16 | PGE_ITS ---
Date of Service Date of service: 10/08/22 Time of Service: 11:16 Assessment and Plan Assessment and plan (1) COPD (chronic obstructive pulmonary disease): Status: Chronic (2) Acute and chronic respiratory failure: Status: Acute (3) Shortness of breath: Status: Acute (4) Chronic respiratory failure with hypoxia and hypercapnia: Status: Acute (5) Smoking: Status: Acute (6) Recurrent adenocarcinoma of lung: Status: Acute (7) Hospice care patient: Status: Acute Assessment and plan: On hospice for COPD, chronic respiratory failure, also w/ recurrent lung cancer. She was admitted to hospice last month after being in the hospital for COVID PNA and COPD exacerbation. She was admitted to [facility] for hospice Sx management due to increasing SOB, weakness and overall decline with poor PO intake over the last week. She appears more comfortable today, however her brow remains furrowed and she is still wearing CPAP. Her daughter reports that she did not like wearing the CPAP and she does not think she would want to wear it at the end of her life. Discussed with staff- plan to remove CPAP and keep her comfortable with medications. Continue MS drip, increase rate as needed, increase bolus to 5 mg q15m PRN. Continue lorazepam as needed. Continue comfort focused care. Her life expectancy is measured in hours to days, discussed with her daughter, Lisy who is at bedside. She will remain at [facility] for end of life care. Subjective Subjective Interval history since last seen: Madelin was seen in her hospital room. She is unresponsive. Her daughter, Lisy is present. She is on MS drip at 7 mg/hr, her bolus dose is at 1 mg q 15m prn. She is still on CPAP. Lisy reports that Madelin hated wearing the CPAP. Discussed with Lisy and Nursing that the goal is to remove the CPAP as tolerated. Madelin appears relaxed, however, she has furrowed brows. She has a baxter in place and she continues to have urinary output. Exam Narrative Exam Narrative: General: well nourished, elderly female, laying in bed with CPAP on. She appears relaxed but still has furrowed brows. She is unresponsive. HEENT: normocephalic, atraumatic, eyes closed. Cardiovascular: tachycardic. Respiratory: CPAP on, does not appear to be in distress, few scattered wheezes noted on limited anterior and lateral exam. GI: +BS, abd soft, nondistended, no response to palpation. Extremities: trace BLE edema. Time Spent with Patient Time Spent with Patient: >50 minutes Time was spent: preparing to see the patient(eg.review tests), obtaining and/or reviewing separately otained hiistory, ordering medications,tests, procedures, referring, communicating with other health career development associate, counseling the patient and care coordination
[2022-10-08] MEDS: Glycopyrrolate 0.2 MG/1 ML VIAL IVP (12:54)
[2022-10-08 13:05] LABS: Source Nasal/Nares
[2022-10-08 13:39] LABS: COVID-19 PCR Negative (Negative)
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
--- NOTE | 2022-10-08 19:03 | EXPE_ITS ---
Date of service: 10/08/22 Time of Service: 13:45 Discharge Plan Disposition Patient Disposition: Discharge Details Reason For Visit: SOB,Wheezing,EOL care Admit Date/Time: 10/07/22 21:08 Admit Provider: Cathie Khoury Attending Provider: Cathie Khoury Primary Care Provider: Arianna Nunez [facility] Course Hospital Course: Carly Arguelles is a 77 year old female who was on hospice for COPD, chronic respiratory failure, also w/ recurrent lung cancer. She was admitted to hospice last month after being in the hospital for COVID PNA and COPD exacerbation. She was experiencing increasing SOB, weakness and overall decline with poor PO intake over the last week at home and was admitted to [facility] for Sx management/end of life care. She was started on a morphine drip and appeared to be more comfortable. Her CPAP was removed today. Her daughter was at bedside. She at 1333, pronounced by nursing at 1335. Discharge Data Cause of : Respiratory failure Discharge Date/Time-TO BE ENTERED AT DEPARTURE: 10/08/22 13:35 Discharge Sum: Diag PCOD Cause of : Respiratory failure Contributing Factors (1) COPD (chronic obstructive pulmonary disease): (2) Acute and chronic respiratory failure: (3) Shortness of breath: (4) Chronic respiratory failure with hypoxia and hypercapnia: (5) Smoking: (6) Recurrent adenocarcinoma of lung: (7) Hospice care patient: Discharge Sum: Summary Date and Time Admission Date: 10/07/2300/10/23 21:08 Date of : 10/08/22 Time of : 13:35 Summary Details: Carly Arguelles is a 77 year old female who was on hospice for COPD, chronic respiratory failure, also w/ recurrent lung cancer. She was admitted to hospice last month after being in the hospital for COVID PNA and COPD exacerbation. She was experiencing increasing SOB, weakness and overall decline with poor PO intake over the last week at home and was admitted to [facility] for Sx management/end of life care. She was started on a morphine drip and appeared to be more comfortable. Her CPAP was removed today. Her daughter was at bedside. She at 1333, pronounced by nursing at 1335.
== END 2022-10-08 13:35 | disposition expired | DRG 189 ==
PROVIDERS: Admitting Provider Nurse Practitioner; PCP Family Medicine; Visit Provider Nurse Practitioner
DX: J96.21 Acute and chronic respiratory failure with hypoxia (principal); J44.1 Chronic obstructive pulmonary disease with (acute) exacerbation; C34.91 Malignant neoplasm of unspecified part of right bronchus or lung; C34.32 Malignant neoplasm of lower lobe, left bronchus or lung; J96.22 Acute and chronic respiratory failure with hypercapnia; F17.210 Nicotine dependence, cigarettes, uncomplicated; Z51.5 Encounter for palliative care; R32 Unspecified urinary incontinence; Z86.16 Personal history of COVID-19; D50.9 Iron deficiency anemia, unspecified; F41.9 Anxiety disorder, unspecified; G89.29 Other chronic pain; F32.A Depression, unspecified; Z66 Do not resuscitate; K21.9 Gastro-esophageal reflux disease without esophagitis; E78.5 Hyperlipidemia, unspecified; I10 Essential (primary) hypertension; G43.909 Migraine, unspecified, not intractable, without status migrainosus; G31.84 Mild cognitive impairment of uncertain or unknown etiology; Z99.81 Dependence on supplemental oxygen; Z85.3 Personal history of malignant neoplasm of breast
CPT/HCPCS: 87635; 99232; J2060